=== PATIENT | female | born 1960 | race Caucasian/White ===

== ENCOUNTER → 2018-08-12 15:22 | Outpatient (CLI) | payer OTHER, SELFPAY ==
--- NOTE | 2018-08-12 | IMM_PTH ---
PATIENT: LELAND SIMMONS LOC: [facility] U#:[id number] AGE/SX: 65/F ROOM: RE08/12/[address]: Dr. Farida Henriquez MD : 1960 BED: DIS: SPEC #: [id number] RECD: 08/16/18 13:39 STATUS: NABIL REQ #: [id number] FERMIN: 08/12/18 00:[address]: Farida Henriquez DEPT: IMMUNOHISTOCHEMISTRY RECD BY: Tahira Jenkins Tissues: Lymph node of neck, NOS Procedures: BCL-2 (add) BCL-6 (add) CD10 (add) CD138 (add) CD45 (add) CD5 (add) CD79A (add) KAPPA (add) LAMBDA (add) Pankeratin (add) CD3 (initial) PHYSICIAN & INSTITUTION [place] [id number] SPECIMEN INFORMATION: Tissue Source: Left neck lymph node, fine needle aspiration Clinical Info: Left thyroid nodule Specimen Number: [id number] CPT code: 17488, 54526 x10 METHODOLOGY: Deparaffinized sections of prefer/formalin-fixed tissue or PAP/DQ stained slides are incubated with monoclonal/polyclonal antibodies/oligonucleotide probes. Localization is made via biotin free immunoperoxidase method. Appropriate controls are performed and reacted as expected. Results on target cell population are indicated in the following table: RESULTS: ANTIBODY / CLONE RESULT CD3 (PS1) positive CD5 (SP10) positive CD20 (L26) negative CD45 (RP2/18) positive CD79a (11E3) positive CD138 (B-A38) positive, focal BCL-2 (bcl-2/100/D5) positive BCL-6 (YN482C/A8) negative [place] (polyclonal) negative Lambda (polyclonal) negative AE1-3 (AE1/AE3/PCK26) negative These tests were developed and their performance characteristics determined by [facility]. They may not have been cleared or approved by the [place]. Food and Drug Administration. The FDA has determined that such clearance or approval is not necessary. INTERPRETATION: Left neck lymph node, fine needle aspiration: Polytypic lymphoid tissue. AM:samira 08/17/18 Comment: There is no evidence of malignancy.
--- NOTE | 2018-08-12 13:00 | LYMN_PTH ---
PATIENT: LELAND SIMMONS LOC: [facility] U#:[id number] AGE/SX: 65/F ROOM: RE08/12/[address]: Dr. Farida Henriquez MD : 1960 BED: DIS: SPEC #: [id number] RECD: 08/12/18 15:21 STATUS: NABIL RUTH ANN #: [id number] FERMIN: 08/12/18 13:[address]: aFrida Henriquez DEPT: SURGICAL PATHOLOGY RECD BY: Jese Kumar Tissues: LYMPH NODE BIOPSY Procedures: Surgery Specimen Level IV HEADER OPERATION: Ultrasound guided fine needle aspiration of left thyroid and lymph node biopsy PRE-OP DIAGNOSIS: Left thyroid nodule TISSUE SUBMITTED: Lymph node biopsy, left neck MICROSCOPIC DIAGNOSIS Left neck lymph node, ultrasound-guided core biopsy: Polytypic lymphoid tissue. AM:samira 08/16/18 COMMENT Immunohistochemistry ([id number]) supports the above diagnosis. Case has been reviewed in consultation with Dr. Recinos who concurs with the above diagnosis. IDC:SJ MICROSCOPIC DESCRIPTION Slides are reviewed. GROSS DESCRIPTION Received in fixative is one container labeled with the patient's name and designated lymph node biopsy. The specimen consists of an elongated piece of contreras soft tissue measuring 0.3 x 0.1 x <0.1 cm. The specimen is totally submitted in one cassette. / TSEFANY:samira 08/15/18 TC:5 CPT: 56444
--- NOTE | 2018-08-12 13:00 | ASPSI_PTH ---
PATIENT: LELAND SIMMONS LOC: [facility] U#:[id number] AGE/SX: 65/F ROOM: RE08/12/[address]: Dr. Farida Henriquez MD : 1960 BED: DIS: SPEC #: [id number] RECD: 08/12/18 15:21 STATUS: NABIL KINGMarcie #: [id number] FERMIN: 08/12/18 13:[address]: Farida Henriqeuz DEPT: CYTOLOGY RECD BY: Jese Kumar Tissues: A - Thyroid gland, NOS B - Thyroid gland, NOS Procedures: Pap Stain (control) Special Stain Group II Surgery Specimen Level IV Cell Block Cytospin Fluid Cytology Other HEADER OPERATION: Ultrasound guided fine needle aspiration of left thyroid and lymph node biopsy PRE-OP DIAGNOSIS: Left thyroid nodule TISSUE SUBMITTED: A. FNA left thyroid fluid for cytology, B. FNA left thyroid slides DIAGNOSIS CYTOLOGY A. Fine needle aspiration, left thyroid nodule (cytospin and cell block): Negative for malignant cells. See comment. B. Fine needle aspiration, left thyroid nodule (smears): Colloid and rare follicular cells. See comment. AM:samira 08/16/18 COMMENT Immediate cytologic evaluation to determine adequacy is not applicable. A. The specimen primarily contains blood. Clinical correlation is suggested. B. The specimen is suboptimal for evaluation due to paucity of follicular cells. Clinical correlation is suggested. CYTOLOGY STUDY Slides are reviewed. CYTOLOGY GROSS A. Received is 30 ml of beige cloudy fluid labeled with the patient's name and and designated per the requisition as left thyroid. Submitted for cytology preparation including cell block. B. Received are 6 smears labeled with the patient's name and designated per the requisition as left thyroid. Submitted for staining. / CC:cc 08/15/18 TC:5 CPT: 26298, 04686, 36338
--- OUTSIDE RECORDS SUMMARY | 2018-11-16 06:29 | XMS RPT_ITS ---
:1960 Author Organization OH[facility] Care Team Providers Name Role Phone ZACHARY HALL Referring Unavailable ISABEL, ZACHARY Geronimo Attending Unavailable ISABEL, ZACHARY Geronimo Referring Unavailable HALL, ZACHARY Geronimo Referring Unavailable HALL, ZACHARY Geronimo Attending Unavailable ISABEL, ZACHARY Geronimo Referring Unavailable HALL, ZACHARY Geronimo Referring Unavailable HENRIQUEZ, FARIDA MONTILLA Attending Unavailable HALL, ZACHARY Geronimo Referring Unavailable HENRIQUEZ, FARIDA MONTILLA Attending Unavailable HENRIQUEZ, FARIDA MONTILLA Referring Unavailable HENRIQUEZ, FARIDA MONTILLA Referring Unavailable Henriquez, Farida Attending Unavailable Martinez, Farida Referring Unavailable PROBLEMS PROBLEMS DATE TYPE CONDITION / CODE ATTENDING STATUS SOURCE 01/19/2014 Active Nontoxic NA Active [facility] multinodular goiter 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 [place] Z79.4(ICD-10) Repository 11/03/2017 Active Unknown / NA Active [facility] UNK(Unknown) [facility] Repository PROCEDURES PROCEDURES No Procedure Records FoundRESULTS RESULTS PROCEDURE Observed: 08/13/2018 Status: COMPLETED Source: [place] 2:37 PM [facility] REPOSITORY HNO ID: [id number] Author: Farida Henriquez Service: (none) Author Type: Physician Type: Procedures Filed: 08/13/2018 2:41 PM Note Text: After informed consent was given and patient gives permission for the procedure, the patient was placed in the supine position with slight neck extension. Appropriate time out protocol was followed. The ultrasound transducer was used to localize the lesion which was in the left lobe of the thyroid. The skin and subcutaneous tissues were then infiltrated with 1% xylocaine with epinephrine after the skin was cleansed with betadyne. A 22G needle attached to a 10 cc syringe was the inserted into the nodule using the US transducer as guidance. The syringe was aspirated, several passes were made to obtain adequate tissue. The needle was then withdrawn and smear slides were made and the remainder of the tissue was placed in formalin. Hemostasis was achieved by pressure. A bandaid was applied to the site. The next lesion approached was the abnormal left neck side lymph node. The ultrasound transducer probe was brought up to localize the lymph node. It was identified. A 20 G Bard needle core biopsy device was inserted into the patient's neck as directed by the US transducer. At the appropriate position, it was fired. The needle core device was withdrawn and the tissue was placed on a telfa pad. This was done multiple times to obtain adequate tissue. The telfa pad was then placed in a formalin container. Hemostasis was achieved with pressure. A small bandaid was applied and patient told that she could remove it tomorrow. No evidence of bleeding noted. Patient tolerated procedure well. PROGRESS Observed: 08/13/2018 Status: COMPLETED Source: [place] 2:36 PM [facility] REPOSITORY HNO ID: [id number] Author: Farida Henriquez Service: (none) Author Type: Physician Type: Progress Notes Filed: 08/13/2018 2:41 PM Note Text: Stefanie presents for needle core biopsy of left sided neck lymph node and also left thyroid nodule. She tolerated procedure well. This office will contact patient with results. PROGRESS Observed: 08/12/2018 Status: COMPLETED Source: [place] 1:33 PM [facility] REPOSITORY HNO ID: [id number] Author: Alayna Nuno RN Service: (none) Author Type: (none) Type: Progress Notes Filed: 08/13/2018 2:41 PM Note Text: UNIVERSAL PROTOCOL / SAFETY CHECKLIST Procedure to be performed: ultrasound guided left thyroid fine needle aspiration and left neck lymph node biopsy Sign in Communication: Completed Time Out: Team Confirms the Correct Patient, Correct Procedure, Correct Site and Site Marking, Correct Position (if applicable), Prep and Dry Time (if applicable). Time: 1315 Affirmation of Time Out: YES Sign Out Discussion: Completed Alayna Nuno RN PROGRESS Observed: 08/12/2018 Status: COMPLETED Source: [place] 1:30 PM [facility] REPOSITORY HNO ID: [id number] Author: Mikaela Barbosa Service: (none) Author Type: Area Sales Manager Type: Progress Notes Filed: 08/12/2018 1:31 PM Note Text: Radiology Service Progress Note PATIENT NAME: Stefanie Wayne DATE OF SERVICE: August 12, 2018 TIME: 1:30 PM PATIENT IDENTITY VERIFICATION COMPLETED USING TWO (2) METHODS: Patient confirmed name verbally and Date of . PATIENT GENDER DATA: Female. status: : No status: N/A PATIENT RELEVANT IMPLANT DATA REVIEWED: Not Applicable RADIOLOGY DEPARTMENT: Ultrasound PERIPHERAL IV DATA: Not applicable SIGNED BY: MIKAELA BARBOSA RDMS RVRoslyn August 12, 2018 1:30 PM CNOV Observed: 08/12/2018 Status: COMPLETED Source: [place] 1:00 PM [facility] REPOSITORY Office Visit (FLORIN) STEFANIE WAYNE ([id number]) 1960 F Date Time Provider Department 08/12/18 1:00 PM FARIDA HENRIQUEZ During your visit today, we recorded the following information about you: Alayna Nuno RN 08/12/2018 12:59 PM Signed The following instructions are important for you related to your office visit today with the [facility]. Instructions After THYROID FINE NEEDLE ASPIRATION Please do not take aspirin or other blood thinners for the next few days. If you have bleeding from the needle site, hold pressure with a clean gauze. If the bleeding continues, contact our office immediately. I recommend taking Advil or Tylenol for the discomfort. An ice pack may improve your discomfort to the area. Contact our office immediately if you have any questions or concerns @ [phone]. Please make an appointment to follow up in one week with your physician and thank you for choosing the [facility]. If you note any additional difficulties, questions, or concerns, you should contact our office immediately @ [phone] and ask to be transferred to the General Surgery department. Alayna Nuno RN 08/13/2018 2:41 PM Signed UNIVERSAL PROTOCOL / SAFETY CHECKLIST Procedure to be performed: ultrasound guided left thyroid fine needle aspiration and left neck lymph node biopsy Sign in Communication: Completed Time Out: Team Confirms the Correct Patient, Correct Procedure, Correct Site and Site Marking, Correct Position (if applicable), Prep and Dry Time (if applicable). Time: 1315 Affirmation of Time Out: YES Sign Out Discussion: Completed Alayna Henriquez MD 08/13/2018 2:41 PM Signed Stefanie presents for needle core biopsy of left sided neck lymph node and also left thyroid nodule. She tolerated procedure well. This office will contact patient with results. Farida Henriquez MD 08/13/2018 2:41 PM Signed After informed consent was given and patient gives permission for the procedure, the patient was placed in the supine position with slight neck extension. Appropriate time out protocol was followed. The ultrasound transducer was used to localize the lesion which was in the left lobe of the thyroid. The skin and subcutaneous tissues were then infiltrated with 1% xylocaine with epinephrine after the skin was cleansed with betadyne. A 22G needle attached to a 10 cc syringe was the inserted into the nodule using the US transducer as guidance. The syringe was aspirated, several passes were made to obtain adequate tissue. The needle was then withdrawn and smear slides were made and the remainder of the tissue was placed in formalin. Hemostasis was achieved by pressure. A bandaid was applied to the site. The next lesion approached was the abnormal left neck side lymph node. The ultrasound transducer probe was brought up to localize the lymph node. It was identified. A 20 G Bard needle core biopsy device was inserted into the patient's neck as directed by the US transducer. At the appropriate position, it was fired. The needle core device was withdrawn and the tissue was placed on a telfa pad. This was done multiple times to obtain adequate tissue. The telfa pad was then placed in a formalin container. Hemostasis was achieved with pressure. A small bandaid was applied and patient told that she could remove it tomorrow. No evidence of bleeding noted. Patient tolerated procedure well. Referring Provider: FARIDA HENRIQUEZ [[id number]] Allergies As of Date: 08/12/2018 Noted Allergy Reaction SULFA (SULFONAMIDE ANTIBIOTICS) 07/02/2006 7 - Swelling 9 - Itching SEASONAL ALLERGIES 01/25/2018 5 - Intolerance ZOCOR (SIMVASTATIN) 12/02/2005 7 - Swelling Date Reviewed: 08/12/2018 Reviewed by: Aalyna Nuno RN - Fully Assessed Reason for Visit: Procedure [88] Primary Visit Diagnosis:Left thyroid nodule [E04.1] Other Visit Diagnosis:Lymph node enlargement [R59.9] Prescriptions as of 08/12/2018 Sig: ATORVASTATIN 20 MG TABLET Take 1 tablet by mouth once d* BASAGLAR KWIKPEN U-100 INSULI* INJECT 30 UNITS SUBCUTANEOUSL* BLOOD-GLUCOSE METER DULAGLUTIDE 1.5 MG/0.5 ML SUB* Inject 1.5 mg subcutaneously * EMPAGLIFLOZIN 10 MG TABLET Take 1 tablet by mouth once d* PEN NEEDLE, DIABETIC 32 GAUGE* Use once daily with Lantus LANCETS Test Blood Sugar 2 times per * LISINOPRIL 20 MG-HYDROCHLOROT* Take 1 tablet by mouth once d* METFORMIN ER 500 MG TABLET,EX* Take 2 tablets by mouth twice* OMEPRAZOLE 40 MG CAPSULE,DEEJAY* TAKE 1 CAPSULE BY MOUTH ONCE * TRAZODONE 100 MG TABLET Take 1 tablet by mouth daily * Problem List As Of Date 08/12/2018 Noted Resolved Essential hypertension [I10] INVALID FOR* Other hyperlipidemia [E78.49] INVALID FOR* Type 2 diabetes mellitus without complication (*INVALID FOR* More... Genital warts [A63.0] INVALID FOR*03/27/2012 Dermatofibroma of lower extremity [D23.70] INVALID FOR*03/27/2012 Reticular Varicose Vein: R leg prox outer mid a*INVALID FOR*03/27/2012 Telangiectasia associated with the Reticular Ve*INVALID FOR*03/27/2012 Epidermal Cyst: L mid lower cheek jawline area *INVALID FOR*03/27/2012 Pilar Cyst: R side scalp [L72.11] INVALID FOR*03/27/2012 GERD (gastroesophageal reflux disease) [K21.9] INVALID FOR* Esophagitis, unspecified [K20.9] INVALID FOR* Symptomatic menopausal or female climacteric st*INVALID FOR* Multinodular thyroid [E04.2] INVALID FOR* Depressive disorder [F32.9] INVALID FOR* Other instructions from your clinician: The following instructions are important for you related to your office visit today with the [facility]. Instructions After THYROID FINE NEEDLE ASPIRATION Please do not take aspirin or other blood thinners for the next few days. If you have bleeding from the needle site, hold pressure with a clean gauze. If the bleeding continues, contact our office immediately. I recommend taking Advil or Tylenol for the discomfort. An ice pack may improve your discomfort to the area. Contact our office immediately if you have any questions or concerns @ [phone]. Please make an appointment to follow up in one week with your physician and thank you for choosing the [facility]. If you note any additional difficulties, questions, or concerns, you should contact our office immediately @ [phone] and ask to be transferred to the General Surgery department. Encounter Status:Closed by MD FARIDA HENRIQUEZ on 08/13/18 ASP SEND IN Observed: 08/12/2018 Status: F Source: [place] 1:00 PM REPOSITORY Patient: STEFANIE WAYNE : 1960 (58/F) Acct Num: [id number] Phys: Farida Henriquez MD Unit Num: [id number] Loc: LABSPEC Specimen: [id number] Received: 08/12/18 - 1521 Spec Type: ASP SENDIN TISSUES 1 TISSUES: A. Thyroid gland, NOS - FLUID, LEFT B. Thyroid gland, NOS - SLIDES, LEFT COMMENT Immediate cytologic evaluation to determine adequacy is not applicable. A. The specimen primarily contains blood. Clinical correlation is suggested. B. The specimen is suboptimal for evaluation due to paucity of follicular cells. Clinical correlation is suggested. CYTOLOGY GROSS A. Received is 30 ml of beige cloudy fluid labeled with the patient's name and and designated per the requisition as left thyroid. Submitted for cytology preparation including cell block. B. Received are 6 smears labeled with the patient's name and designated per the requisition as left thyroid. Submitted for staining. / CC:cc 08/15/18 TC:5 CPT: 06879, 30282, 51080 CYTOLOGY STUDY Slides are reviewed. DIAGNOSIS CYTOLOGY A. Fine needle aspiration, left thyroid nodule (cytospin and cell block): Negative for malignant cells. See comment. B. Fine needle aspiration, left thyroid nodule (smears): Colloid and rare follicular cells. See comment. AM:samira 08/16/18 HEADER OPERATION: Ultrasound guided fine needle aspiration of left thyroid and lymph node biopsy PRE-OP DIAGNOSIS: Left thyroid nodule TISSUE SUBMITTED: A. FNA left thyroid fluid for cytology, B. FNA left thyroid slides Signed Mark Rivera DO 08/16/18 <signature on file> Performed By: #### STU #### [facility], [address] LYMPH NODE BIOPSY Observed: 08/12/2018 Status: F Source: [place] 1:00 PM REPOSITORY Patient: STEFANIE WAYNE : 1960 (58/F) Acct Num: [id number] Phys: Martinez MARTÍNEZ,Farida Unit Num: [id number] Loc: LABSPEC Specimen: [id number] Received: 08/12/181520 Spec Type: LYMPH NODE TISSUES 1 TISSUES: LYMPH NODE BIOPSY COMMENT Immunohistochemistry ([id number]) supports the above diagnosis. Case has been reviewed in consultation with Dr. Recinos who concurs with the above diagnosis. IDC:STEFANY GROSS DESCRIPTION Received in fixative is one container labeled with the patient's name and designated lymph node biopsy. The specimen consists of an elongated piece of contreras soft tissue measuring 0.3 x 0.1 x <0.1 cm. The specimen is totally submitted in one cassette. / SJ:samira 08/15/18 TC:5 CPT: 87363 HEADER OPERATION: Ultrasound guided fine needle aspiration of left thyroid and lymph node biopsy PRE-OP DIAGNOSIS: Left thyroid nodule TISSUE SUBMITTED: Lymph node biopsy, left neck MICROSCOPIC DESCRIPTION Slides are reviewed. MICROSCOPIC DIAGNOSIS Left neck lymph node, ultrasound-guided core biopsy: Polytypic lymphoid tissue. AM:samira 08/16/18 Signed Mark Rivera DO 08/17/18 <signature on file> Performed By: #### PLYMN #### [facility] [address] [place], [place] [address]wil[place]ido. [place], [place], [address] IMMUNOHISTOCHEMISTRY Observed: 08/12/2018 Status: F Source: [place] 12:00 AM REPOSITORY Patient: STEFANIE WAYNE : 1960 (58/F) Acct Num: [id number] Phys: Farida Henriquez MD Unit Num: [id number] Loc: LABSPEC Specimen: [id number] Received: 08/16/181338 Spec Type: IMMUNO TISSUES 1 TISSUES: Lymph node of neck, NOS SPECIMEN INFORMATION: Tissue Source: Left neck lymph node, fine needle aspiration Clinical Info: Left thyroid nodule Specimen Number: [id number] CPT code: 00994, 68811 x10 METHODOLOGY: Deparaffinized sections of prefer/formalin-fixed tissue or PAP/DQ stained slides are incubated with monoclonal/polyclonal antibodies/oligonucleotide probes. Localization is made via biotin free immunoperoxidase method. Appropriate controls are performed and reacted as expected. Results on target cell population are indicated in the following table: RESULTS: ANTIBODY / CLONE RESULT CD3 (PS1) positive CD5 (SP10) positive CD20 (L26) negative CD45 (RP2/18) positive CD79a (11E3) positive CD138 (B-A38) positive, focal BCL-2 (bcl-2/100/D5) positive BCL-6 (LZ564F/A8) negative [place] (polyclonal) negative Lambda (polyclonal) negative AE1-3 (AE1/AE3/PCK26) negative These tests were developed and their performance characteristics determined by [facility]. They may not have been cleared or approved by the U.S. Food and Drug Administration. The FDA has determined that such clearance or approval is not necessary. INTERPRETATION: Left neck lymph node, fine needle aspiration: Polytypic lymphoid tissue. AM:samira 08/17/18 Comment: There is no evidence of malignancy. PHYSICIAN AND INSTITUTION [address] [address] Signed Mark Rivera, 08/18/18 <signature on file> Performed By: #### PIMM #### [facility] [place], [address] CNPN Observed: 08/09/2018 Status: COMPLETED Source: [place] 12:00 AM [facility] REPOSITORY Telephone (INTMWS) STEFANIE WAYNE ([id number]) 1960 F Date Time Provider Department 08/09/18 ZACHARY HALL INTXIN During your visit today, we recorded the following information about you: [facility] 08/09/2018 8:35 AM Signed ----- Message from Zachary Hall sent at 08/07/2018 12:00 AM EST ----- DM worse. Continue medications. Add Jardiance 10 mg daily #30, 2 refills. [facility] 08/09/2018 8:41 AM Signed Patient is notified of all information and verbalizes understanding. [facility] Allergies As of Date: 08/09/2018 Noted Allergy Reaction SULFA (SULFONAMIDE ANTIBIOTICS) 07/02/2006 7 - Swelling 9 - Itching SEASONAL ALLERGIES 01/25/2018 5 - Intolerance ZOCOR (SIMVASTATIN) 12/02/2005 7 - Swelling Date Reviewed: 08/05/2018 Reviewed by: Farida Henriquez - Fully Assessed Reason for Visit: Results [95] Order(s):empagliflozin (JARDIANCE) 10 mg tabletTake 1 tablet by mouth once daily. Take 1 tablet once daily in the morningDisp: 30 tabletRfl: 2 Prescriptions as of 08/09/2018 Sig: EMPAGLIFLOZIN 10 MG TABLET Take 1 tablet by mouth once d* OMEPRAZOLE 40 MG CAPSULE,DEEJAY* TAKE 1 CAPSULE BY MOUTH ONCE * ATORVASTATIN 20 MG TABLET Take 1 tablet by mouth once d* METFORMIN ER 500 MG TABLET,EX* Take 2 tablets by mouth twice* LISINOPRIL 20 MG-HYDROCHLOROT* Take 1 tablet by mouth once d* TRAZODONE 100 MG TABLET Take 1 tablet by mouth daily * BASAGLAR KWIKPEN U-100 INSULI* INJECT 30 UNITS SUBCUTANEOUSL* DULAGLUTIDE 1.5 MG/0.5 ML SUB* Inject 1.5 mg subcutaneously * PEN NEEDLE, DIABETIC 32 GAUGE* Use once daily with Lantus BLOOD-GLUCOSE METER LANCETS Test Blood Sugar 2 times per * Problem List As Of Date 08/09/2018 Noted Resolved Essential hypertension [I10] INVALID FOR* Other hyperlipidemia [E78.49] INVALID FOR* Type 2 diabetes mellitus without complication (*INVALID FOR* More... Genital warts [A63.0] INVALID FOR*03/27/2012 Dermatofibroma of lower extremity [D23.70] INVALID FOR*03/27/2012 Reticular Varicose Vein: R leg prox outer mid a*INVALID FOR*03/27/2012 Telangiectasia associated with the Reticular Ve*INVALID FOR*03/27/2012 Epidermal Cyst: L mid lower cheek jawline area *INVALID FOR*03/27/2012 Pilar Cyst: R side scalp [L72.11] INVALID FOR*03/27/2012 GERD (gastroesophageal reflux disease) [K21.9] INVALID FOR* Esophagitis, unspecified [K20.9] INVALID FOR* Symptomatic menopausal or female climacteric st*INVALID FOR* Multinodular thyroid [E04.2] INVALID FOR* Depressive disorder [F32.9] INVALID FOR* Prescriptions ordered this encounter Disp Refills Start End EMPAGLIFLOZIN 10 MG TABLET 30 t* 2 08/09/2018 Route: ORAL Sig: Take 1 tablet by mouth once daily. Take 1 tablet once daily in the morning Encounter Status:Closed by PRIYANKA CHU CNP on 08/09/18 PROGRESS Observed: 08/04/2018 Status: COMPLETED Source: [place] 4:36 PM [facility] REPOSITORY HNO ID: [id number] Author: Farida Henriquez Service: (none) Author Type: Physician Type: Progress Notes Filed: 08/06/2018 2:44 PM Note Text: Stefanie Wayne 1960 REFERRING PHYSICIAN: Zachary Hall MD CHIEF COMPLAINT: left thyroid nodule HPI: The patient is a 58 year old female presents with abnormal thyroid US. She has noted that she seems to require clearing her throat more often, and seems slightly hoarse. Also notes swallowing problems, food seems to be stuck in her upper throat at times, and she has to swallow multiple times to get the food down. She also complains of globus sensation for about a year. Denies radiation to the area. Denies history of thyroiditis. Has noted some weight gain. US 07/29/18 Right lobe 4.3 x 1.9 x 1.3 cm . Left lobe 3.9 x 1.4 x 1.9 cm . Isthmus 0.2 cm. Thyroid texture: Very heterogeneous Nodules: (Several ill-defined nodules. The largest ones measure) Right lobe: 6 x 5 x 4 mm in the lower pole and 4 mm in the lower pole at the junction with the isthmus . Both of these are hypoechoic. Previously measured 6 x 5 x 3 mm and 4 mm respectively. Left lobe: 1.0 x 0.9 x 0.6 cm in the lower pole . It contains calcification. Previously measured 8 x 6 x 7 mm Isthmus: None . There is a lymph node noted lateral to the thyroid on the LEFT side measuring 2.2 x 0.8 x 0.5 cm. No thyroid cancer known in family. PAST MEDICAL HISTORY Diagnosis Date - Acute gastritis 02/2004 - Anxiety state, unspecified - Multinodular thyroid 01/19/2014 - Other affections of shoulder region, not elsewhere classified 12/03/2005 - Other and unspecified hyperlipidemia 11/26/2005 - Pain in joint, shoulder region 08/26/2007 - RBBB 01/05/2003 - Right hip pain 2012 ARTHROSCOPY HIP W/ DEBRIDEMENT/SHAVING ARTICULAR CARTILAGE, ABRASION ARTHROPLASTY, AND/OR RESECTION LABRUM Right - Type II or unspecified type diabetes mellitus without mention of complication, not stated as uncontrolled 11/26/2005 - Unspecified essential hypertension 11/26/2005 PAST SURGICAL HISTORY Procedure Laterality Date - ARTHROSCOPY HIP W/LABRAL REPAIR Right hip - COLONOSCOP W/ OR W/O BRSH SPEC 05/04/2013 Colonoscopy - CORRECT BUNION,SIMPLE 1974 Bunion - EGD W/O OR W/BRUSH/WASH 03/04/2004 EGD - EGD W/O OR W/BRUSH/WASH 04/07/2012 EGD - EXCISE EXCESS SKIN TISSUE,ABDOMEN, ADD-ON December 15, 2009 Abdominoplasty - KNEE SCOPE,DIAGNOSTIC 1977 Arthroscopy, knee - PAST SURGICAL HISTORY OF 1985 CYST REMOVAL LEFT HAND - PAST SURGICAL HISTORY OF 2000 NERVE REPAIR, left hand following crush injury - PERCUTANEOUS LUMBAR DISKECTOMY 1994 - REDUCTION OF LARGE BREAST 1999 Breast reduction - REPAIR ROTATOR CUFF,ACUTE Rotator cuff repair, Left shoulder. - REVISE MEDIAN N/CARPAL TUNNEL SURG 1993 Carpal tunnel decomp - REVISE MEDIAN N/CARPAL TUNNEL SURG 2000 Carpal tunnel decomp - SHOULDER RIGHT OUT PT SURGERY Right 12/30/2016 rotator cuff surgery - SLING OPER STRES INCONTINENCE 04/2014 - TOTAL ABDOM HYSTERECTOMY 1991 Hysterectomy, SUMMER- one ovary remains Current Outpatient Prescriptions: diazePAM (VALIUM) 5 mg tablet Take 1 tablet by mouth every 6 hours as needed for Sedation (take 1-2 tablets about 1 hour prior to procedure) for up to 1 day. atorvastatin (LIPITOR) 20 mg tablet Take 1 tablet by mouth once daily. metFORMIN ER (GLUCOPHAGE XR) 500 mg 24 hr tablet Take 2 tablets by mouth twice daily with meals. lisinopril-hydrochlorothiazide (PRINZIDE,ZESTORETIC) 20-12.5 mg per tablet Take 1 tablet by mouth once daily. traZODone (DESYREL) 100 mg tablet Take 1 tablet by mouth daily at bedtime. BASAGLAR KWIKPEN U-100 INSULIN 100 unit/mL (3 mL) inpn INJECT 30 UNITS SUBCUTANEOUSLY EVERY MORNING. dulaglutide (TRULICITY) 1.5 mg/0.5 mL pnij Inject 1.5 mg subcutaneously once each week. Insulin [place], Disposable, (BD ULTRA-FINE MICRO PEN NEEDLE) 32 gauge x 1/4 ndle Use once daily with Lantus Omeprazole 40 mg capsule TAKE 1 CAPSULE BY MOUTH ONCE DAILY. Blood-Glucose Meter (ACCU-CHEK SANDIE) misc Lancets (SOFTCLIX LANCETS) lancets Test Blood Sugar 2 times per day. Dx: 250.00 ALLERGIES: Sulfa (Sulfonamide Antibiotics); Seasonal Allergies; Zocor [Simvastatin] PERSONAL HISTORY: Social History Marital status: Spouse name: Years of education: 10 Number of children: 2 Occupational History Occupation Employer Comment [employer] Social History Main Topics Smoking status: Former Smoker Packs/day: 0.75 Years: 30.00 Types: Cigarettes Quit date: 11/30/2008 Smokeless tobacco: Never Used Alcohol use: Yes 4.5 oz/week Cans of Beer (12oz): 3 per week Comment: Occasionally Drug use: No Sexual activity: Yes Partners with: Male Comment: hysterectomy FAMILY HISTORY Problem Relation Age of Onset - Diabetes Mother - Hypertension Mother - Stroke Mother - Arthritis Mother Lupus - Thyroid Mother - other (TUBERCULOSIS) Father not well known - Diabetes Brother - Hypertension Brother REVIEW OF SYSTEMS: General - denies fevers, denies extreme fatigue does feel tired Cardiovascular - denies chest pain Pulmonary - denies shortness of breath, denies coughing up blood Gastrointestinal - denies abdominal pain, denies hematemesis Neurological - denies seizures Genitourinary - denies burning with urination, denies blood in urine Hematological - denies spontaneous/prolonged bleeding Skin - denies nonhealing skin wounds Musculoskeletal - denies chronic joint/back pain Endocrine - has diabetes Psychological ? denies hallucinations PHYSICAL EXAMINATION: General: The patient is 58 year old female, well nourished, well hydrated in no acute distress. The patient is oriented to time, place, and person. VITALS: Blood pressure 170/90, pulse 80, weight 76.2 kg (168 lb). Body mass index is 29.76 kg/m?. Head ? Normocephalic. EOM intact with sclera clear and no icterus noted. Mouth with mucus membranes moist. Neck - supple with no jugular venous distention noted. Trachea is midline. No carotid bruits noted. No thyroid enlargement or thyroid nodules detected. No masses noted. Lungs ? clear to auscultation. Normal breath sounds. No rales/rhonchi/wheezing noted. No labored breathing noted, such as retractions. No cough heard. Heart ? normal S1 and S2 auscultated. No rubs/clicks/murmurs noted. Regular rate. Abdomen ? soft and benign. Normal bowel sounds. Extremities ? no calf tenderness noted. No pitting edema noted. Skin ? normal skin integrity. Lymph ? no cervical adenopathy detected, no supraclavicular adenopathy detected, no axillary adenopathy detected Neurological ? gait normal, no focal deficits noted Psych ? calm and appropriate RADIOLOGIC STUDIES: As Noted Assessment IMPRESSION: multinodular thyroid, abnormal left side neck lymph node PLAN: I have discussed the above with the patient. I have offered US guided needle biopsy of left thyroid nodule and the left sided lymph node. I have explained the procedure to the patient. I have counseled the patient as to the risks of the procedure, including but not limited to: infection, bleeding, injury to any blood vessels/nerves, scar tissue, wound infections, complications of anesthesia, etc. ? the patient understands. The patient wishes to proceed. She would also like valium prior to procedure. I have answered all questions to the patient?s satisfaction and the patient has no further questions. . Diagnoses: (E04.1) Left thyroid nodule (primary encounter diagnosis) (R59.9) Lymph node enlargement (F41.9) Anxiety Return to Clinic: The patient is instructed to follow-up with me after the procedure for discussion of the results. Farida Henriquez MD CNOV Observed: 08/04/2018 Status: COMPLETED Source: [place] 2:50 PM [facility] REPOSITORY Office Visit (GENSWS) STEFANIE WAYNE ([id number]) 1960 F Date Time Provider Department 08/04/18 2:50 PM FARIDA HENRIQUEZ During your visit today, we recorded the following information about you: Pulse Blood pressure Weight 80/minute 170/90 76.2 kg Farida Henriquez MD 08/06/2018 2:44 PM Signed Stefanie Wayne 1960 REFERRING PHYSICIAN: Zachary Hall MD CHIEF COMPLAINT: left thyroid nodule HPI: The patient is a 58 year old female presents with abnormal thyroid US. She has noted that she seems to require clearing her throat more often, and seems slightly hoarse. Also notes swallowing problems, food seems to be stuck in her upper throat at times, and she has to swallow multiple times to get the food down. She also complains of globus sensation for about a year. Denies radiation to the area. Denies history of thyroiditis. Has noted some weight gain. US 07/29/18 Right lobe 4.3 x 1.9 x 1.3 cm . Left lobe 3.9 x 1.4 x 1.9 cm . Isthmus 0.2 cm. Thyroid texture: Very heterogeneous Nodules: (Several ill-defined nodules. The largest ones measure) Right lobe: 6 x 5 x 4 mm in the lower pole and 4 mm in the lower pole at the junction with the isthmus . Both of these are hypoechoic. Previously measured 6 x 5 x 3 mm and 4 mm respectively. Left lobe: 1.0 x 0.9 x 0.6 cm in the lower pole . It contains calcification. Previously measured 8 x 6 x 7 mm Isthmus: None . There is a lymph node noted lateral to the thyroid on the LEFT side measuring 2.2 x 0.8 x 0.5 cm. No thyroid cancer known in family. PAST MEDICAL HISTORY Diagnosis Date - Acute gastritis 02/2004 - Anxiety state, unspecified - Multinodular thyroid 01/19/2014 - Other affections of shoulder region, not elsewhere classified 12/03/2005 - Other and unspecified hyperlipidemia 11/26/2005 - Pain in joint, shoulder region 08/26/2007 - RBBB 01/05/2003 - Right hip pain 2012 ARTHROSCOPY HIP W/ DEBRIDEMENT/SHAVING ARTICULAR CARTILAGE, ABRASION ARTHROPLASTY, AND/OR RESECTION LABRUM Right - Type II or unspecified type diabetes mellitus without mention of complication, not stated as uncontrolled 11/26/2005 - Unspecified essential hypertension 11/26/2005 PAST SURGICAL HISTORY Procedure Laterality Date - ARTHROSCOPY HIP W/LABRAL REPAIR Right hip - COLONOSCOP W/ OR W/O [facility] SPEC 05/04/2013 Colonoscopy - CORRECT BUNION,SIMPLE 1974 Bunion - EGD W/O OR W/BRUSH/WASH 03/04/2004 EGD - EGD W/O OR W/BRUSH/WASH 04/07/2012 EGD - EXCISE EXCESS SKIN TISSUE,ABDOMEN, ADD-ON December 15, 2009 Abdominoplasty - KNEE SCOPE,DIAGNOSTIC 1977 Arthroscopy, knee - PAST SURGICAL HISTORY OF 1985 CYST REMOVAL LEFT HAND - PAST SURGICAL HISTORY OF 2000 NERVE REPAIR, left hand following crush injury - PERCUTANEOUS LUMBAR DISKECTOMY 1994 - REDUCTION OF LARGE BREAST 1999 Breast reduction - REPAIR ROTATOR CUFF,ACUTE Rotator cuff repair, Left shoulder. - REVISE MEDIAN N/CARPAL TUNNEL SURG 1993 Carpal tunnel decomp - REVISE MEDIAN N/CARPAL TUNNEL SURG 2000 Carpal tunnel decomp - SHOULDER RIGHT OUT PT SURGERY Right 12/30/2016 rotator cuff surgery - SLING OPER STRES INCONTINENCE 04/2014 - TOTAL ABDOM HYSTERECTOMY 1991 Hysterectomy, SUMMER- one ovary remains Current Outpatient Prescriptions: diazePAM (VALIUM) 5 mg tablet Take 1 tablet by mouth every 6 hours as needed for Sedation (take 1-2 tablets about 1 hour prior to procedure) for up to 1 day. atorvastatin (LIPITOR) 20 mg tablet Take 1 tablet by mouth once daily. metFORMIN ER (GLUCOPHAGE XR) 500 mg 24 hr tablet Take 2 tablets by mouth twice daily with meals. lisinopril-hydrochlorothiazide (PRINZIDE,ZESTORETIC) 20-12.5 mg per tablet Take 1 tablet by mouth once daily. traZODone (DESYREL) 100 mg tablet Take 1 tablet by mouth daily at bedtime. BASAGLAR KWIKPEN U-100 INSULIN 100 unit/mL (3 mL) inpn INJECT 30 UNITS SUBCUTANEOUSLY EVERY MORNING. dulaglutide (TRULICITY) 1.5 mg/0.5 mL pnij Inject 1.5 mg subcutaneously once each week. Insulin Orovada, Disposable, (BD ULTRA-FINE MICRO PEN NEEDLE) 32 gauge x 1/4 ndle Use once daily with Lantus Omeprazole 40 mg capsule TAKE 1 CAPSULE BY MOUTH ONCE DAILY. Blood-Glucose Meter (ACCU-CHEK SANDIE) misc Lancets (SOFTCLIX LANCETS) lancets Test Blood Sugar 2 times per day. Dx: 250.00 ALLERGIES: Sulfa (Sulfonamide Antibiotics); Seasonal Allergies; Zocor [Simvastatin] PERSONAL HISTORY: Social History Marital status: Spouse name: Years of education: 10 Number of children: 2 Occupational History Occupation Employer Comment [employer] Social History Main Topics Smoking status: Former Smoker Packs/day: 0.75 Years: 30.00 Types: Cigarettes Quit date: 11/30/2008 Smokeless tobacco: Never Used Alcohol use: Yes 4.5 oz/week Cans of Beer (12oz): 3 per week Comment: Occasionally Drug use: No Sexual activity: Yes Partners with: Male Comment: hysterectomy FAMILY HISTORY Problem Relation Age of Onset - Diabetes Mother - Hypertension Mother - Stroke Mother - Arthritis Mother Lupus - Thyroid Mother - other (TUBERCULOSIS) Father not well known - Diabetes Brother - Hypertension Brother REVIEW OF SYSTEMS: General - denies fevers, denies extreme fatigue does feel tired Cardiovascular - denies chest pain Pulmonary - denies shortness of breath, denies coughing up blood Gastrointestinal - denies abdominal pain, denies hematemesis Neurological - denies seizures Genitourinary - denies burning with urination, denies blood in urine Hematological - denies spontaneous/prolonged bleeding Skin - denies nonhealing skin wounds Musculoskeletal - denies chronic joint/back pain Endocrine - has diabetes Psychological ? denies hallucinations PHYSICAL EXAMINATION: General: The patient is 58 year old female, well nourished, well hydrated in no acute distress. The patient is oriented to time, place, and person. VITALS: Blood pressure 170/90, pulse 80, weight 76.2 kg (168 lb). Body mass index is 29.76 kg/m?. Head ? Normocephalic. EOM intact with sclera clear and no icterus noted. Mouth with mucus membranes moist. Neck - supple with no jugular venous distention noted. Trachea is midline. No carotid bruits noted. No thyroid enlargement or thyroid nodules detected. No masses noted. Lungs ? clear to auscultation. Normal breath sounds. No rales/rhonchi/wheezing noted. No labored breathing noted, such as retractions. No cough heard. Heart ? normal S1 and S2 auscultated. No rubs/clicks/murmurs noted. Regular rate. Abdomen ? soft and benign. Normal bowel sounds. Extremities ? no calf tenderness noted. No pitting edema noted. Skin ? normal skin integrity. Lymph ? no cervical adenopathy detected, no supraclavicular adenopathy detected, no axillary adenopathy detected Neurological ? gait normal, no focal deficits noted Psych ? calm and appropriate RADIOLOGIC STUDIES: As Noted Assessment IMPRESSION: multinodular thyroid, abnormal left side neck lymph node PLAN: I have discussed the above with the patient. I have offered US guided needle biopsy of left thyroid nodule and the left sided lymph node. I have explained the procedure to the patient. I have counseled the patient as to the risks of the procedure, including but not limited to: infection, bleeding, injury to any blood vessels/nerves, scar tissue, wound infections, complications of anesthesia, etc. ? the patient understands. The patient wishes to proceed. She would also like valium prior to procedure. I have answered all questions to the patient?s satisfaction and the patient has no further questions. . Diagnoses: (E04.1) Left thyroid nodule (primary encounter diagnosis) (R59.9) Lymph node enlargement (F41.9) Anxiety Return to Clinic: The patient is instructed to follow-up with me after the procedure for discussion of the results. Farida Henriquez MD Referring Provider: ZACHARY HALL [[id number]] Allergies As of Date: 08/04/2018 Noted Allergy Reaction SULFA (SULFONAMIDE ANTIBIOTICS) 07/02/2006 7 - Swelling 9 - Itching SEASONAL ALLERGIES 01/25/2018 5 - Intolerance ZOCOR (SIMVASTATIN) 12/02/2005 7 - Swelling Date Reviewed: 08/04/2018 Reviewed by: Claudia Flores LPN - Fully Assessed Reason for Visit: left thyroid nodule [Other] Primary Visit Diagnosis:Left thyroid nodule [E04.1] Other Visit Diagnoses:Lymph node enlargement [R59.9] Anxiety [F41.9] Order(s):[] diazePAM (VALIUM) 5 mg tabletTake 1 tablet by mouth every 6 hours as needed for Sedation (take 1-2 tablets about 1 hour prior to procedure) for up to 1 day.Disp: 2 tabletRfl: 0 NEEDLE BIOPSY, LYMPH NODE(S) [11403PLH] Order #: [id number] NEEDLE BIOPSY, LYMPH NODE(S) [36142SFE] Order #: [id number] FUTURE Prescriptions as of 08/04/2018 Sig: DIAZEPAM 5 MG TABLET Take 1 tablet by mouth every * ATORVASTATIN 20 MG TABLET Take 1 tablet by mouth once d* METFORMIN ER 500 MG TABLET,EX* Take 2 tablets by mouth twice* LISINOPRIL 20 MG-HYDROCHLOROT* Take 1 tablet by mouth once d* TRAZODONE 100 MG TABLET Take 1 tablet by mouth daily * BASAGLAR NADIAPEN U-100 INSULI* INJECT 30 UNITS SUBCUTANEOUSL* DULAGLUTIDE 1.5 MG/0.5 ML SUB* Inject 1.5 mg subcutaneously * PEN NEEDLE, DIABETIC 32 GAUGE* Use once daily with Lantus X OMEPRAZOLE 40 MG CAPSULE,DEEJAY* TAKE 1 CAPSULE BY MOUTH ONCE * BLOOD-GLUCOSE METER LANCETS Test Blood Sugar 2 times per * Problem List As Of Date 08/04/2018 Noted Resolved Essential hypertension [I10] INVALID FOR* Other hyperlipidemia [E78.49] INVALID FOR* Type 2 diabetes mellitus without complication (*INVALID FOR* More... Genital warts [A63.0] INVALID FOR*03/27/2012 Dermatofibroma of lower extremity [D23.70] INVALID FOR*03/27/2012 Reticular Varicose Vein: R leg prox outer mid a*INVALID FOR*03/27/2012 Telangiectasia associated with the Reticular Ve*INVALID FOR*03/27/2012 Epidermal Cyst: L mid lower cheek jawline area *INVALID FOR*03/27/2012 Pilar Cyst: R side scalp [L72.11] INVALID FOR*03/27/2012 GERD (gastroesophageal reflux disease) [K21.9] INVALID FOR* Esophagitis, unspecified [K20.9] INVALID FOR* Symptomatic menopausal or female climacteric st*INVALID FOR* Multinodular thyroid [E04.2] INVALID FOR* Depressive disorder [F32.9] INVALID FOR* Prescriptions ordered this encounter Disp Refills Start End DIAZEPAM 5 MG TABLET 2 ta* 0 08/04/2018 08/05/2018 Class: Print RX Route: ORAL Sig: Take 1 tablet by mouth every 6 hours as needed for Sedation (take 1-2 tablets about 1 hour prior to procedure) for up to 1 day. Encounter Status:Closed by MD FARIDA HENRIQUEZ on 08/06/18 PROGRESS Observed: 07/27/2018 Status: COMPLETED Source: [place] 10:19 AM [facility] REPOSITORY O ID: [id number] Author: Mikaela Barbosa Service: (none) Author Type: Area Sales Manager Type: Progress Notes Filed: 07/27/2018 10:19 AM Note Text: Radiology Service Progress Note PATIENT NAME: Stefanie Wayne DATE OF SERVICE: July 27, 2018 TIME: 10:19 AM PATIENT IDENTITY VERIFICATION COMPLETED USING TWO (2) METHODS: Patient confirmed name verbally and Date of . PATIENT GENDER DATA: Female. status: : No status: N/A PATIENT RELEVANT IMPLANT DATA REVIEWED: Not Applicable RADIOLOGY DEPARTMENT: Ultrasound PERIPHERAL IV DATA: Not applicable SIGNED BY: MIKAELA BARBOSA RDMS RVRoslyn July 27, 2018 10:19 AM US THYROID/PARATHYROID Observed: 07/27/2018 Status: F Source: [place] 10:18 AM [facility] REPOSITORY * * *Final Report* * * DATE OF EXAM: Jul 27 2018 10:18AM [facility] 1048 - US THYROID/PARATHYROID / PROCEDURE REASON: Multinodular thyroid * * * * Physician Interpretation * * * * Ultrasound Thyroid: HISTORY: 58 years old Clinical information: Multinodular thyroid TECHNIQUE: Images provided: Sagittal and axial images of the thyroid.Images stored and permanent archive. Comparison: 04/23/2017 RESULT: Measurements: Right lobe 4.3 x 1.9 x 1.3 cm . Left lobe 3.9 x 1.4 x 1.9 cm . Isthmus 0.2 cm. Thyroid texture: Very heterogeneous Nodules: (Several ill-defined nodules. The largest ones measure) Right lobe: 6 x 5 x 4 mm in the lower pole and 4 mm in the lower pole at the junction with the isthmus . Both of these are hypoechoic. Previously measured 6 x 5 x 3 mm and 4 mm respectively. Left lobe: 1.0 x 0.9 x 0.6 cm in the lower pole . It contains calcification. Previously measured 8 x 6 x 7 mm Isthmus: None . There is a lymph node noted lateral to the thyroid on the LEFT side measuring 2.2 x 0.8 x 0.5 cm. IMPRESSION: Bilateral thyroid nodules the largest one in the lower pole of the LEFT side has enlarged Circular Clerk: PSCB Transcribe Date/Time: Jul 29 2018 9:59A Dictated by : ARACELI FLORES DO This examination was interpreted and the report reviewed and electronically signed by: ARACELI FLORES DO on Jul 29 2018 10:05AM EST [id number] CNCO Observed: 07/27/2018 Status: COMPLETED Source: [place] 9:27 AM [facility] REPOSITORY HNO ID: [id number] Author: Mammography Coordinator Service: (none) Author Type: Physician Type: Letter Filed: 07/28/2018 11:31 PM Note Text: July 27, 2018 PID: [id number] Stefanie Wayne [address] [place] [address] Dear Edna Wayne, We are pleased to inform you that the results of your recent breast imaging exam on 07/27/2018 are normal. Your mammogram demonstrates that you have dense breast tissue, which could hide abnormalities. Dense breast tissue, in and of itself, is a relatively common condition. Therefore, this information is not provided to cause undue concern; rather, it is to raise your awareness and promote discussion with your health care provider regarding the presence of dense breast tissue in addition to other risk factors. Early detection of cancer is very important. We also understand recommendations regarding breast cancer screening are controversial. Please discuss with your primary care provider which strategy is best for you and whether a mammogram is right for you. Your imaging studies and report will be kept on file at [facility] as part of your permanent medical record and are available for your continuing care. Thank you for allowing us to help in meeting your health care needs. Sincerely, Dr. Parekh Interpreting Radiologist [facility] (Normal over 40) [facility] SCREENING Observed: 07/27/2018 Status: F Source: [place] 9:18 AM [facility] REPOSITORY * * *Final Report* * * DATE OF EXAM: Jul 27 2018 9:18AM [facility] 0581 - [facility] SCREENING / PROCEDURE REASON: Screening mammogram, encounter for * * * * Physician Interpretation * * * * RESULT: #[id number] - [facility] SCREENING BILATERAL DIGITAL SCREENING MAMMOGRAM WITH CAD: 07/27/2018 HISTORY: Screening Mammogram, Encounter For /priors available for comparison. RESULT: TECHNIQUE: The study was acquired using full field digital technology and interpreted from soft copy. Current study was also evaluated with a Computer Aided Detection (CAD). Comparison is made to exams dated: 04/22/2017 mammogram - [facility], 03/24/2016 mammogram, 11/08/2012 mammogram - [facility], and 04/23/2011 mammogram. The tissue of both breasts is heterogeneously dense. This may lower the sensitivity of mammography. There are benign calcifications in both breasts. There also is a biopsy clip in the right breast. No significant masses, calcifications, or other findings are seen in either breast. There has been no significant interval change. IMPRESSION: There is no mammographic evidence of malignancy. A 1 year screening mammogram is recommended. Kamlesh vela/damien:07/27/2018 09:27:52 Interlibrary Loan Specialist(s): RT Won(R)(M), [facility] letter sent: Normal over 40 Mammogram BI-RADS: 2 Benign finding Multiple national specialty organizations have released breast cancer screening guidelines for women at average risk for developing breast cancer - guidelines that are based on both evidence and opinion, yet differ on when to start and how often to screen for breast cancer. With representation from Breast Imaging, Internal Medicine, Women's Health, Family Medicine, and Medical/Surgical Oncology, the [facility] has carefully reviewed the data and reached the following consensus: 1) All women should engage in shared decision-making with their providers to decide when to start and how often to screen; 2) All women should have the opportunity to start screening mammography at age 40; 3) For women ages 45-55, we recommend annual screening mammograms; 4) For women ages 55 and over, we support both the transition from an annual to a biennial interval if this aligns more with patient's values and preferences, or continuation with annual screening; 5) All women should discuss with their providers when to stop screening mammograms. Circular Clerk: Damien Transcribe Date/Time: Jul 27 2018 8:52A Dictated by: KAMLESH PAREKH MD This examination was interpreted and the report reviewed and electronically signed by: KAMLESH PAREKH MD on Jul 27 2018 9:27AM EST [id number] PROCEDURE Observed: 07/27/2018 Status: COMPLETED Source: [place] 8:51 AM [facility] REPOSITORY HNO ID: [id number] Author: Liliana Upton (Rt) Service: (none) Author Type: Harbormaster Type: Procedures Filed: 07/27/2018 9:16 AM Note Text: Radiology Service Progress Note PATIENT NAME: Stefanie Wayne DATE OF SERVICE: July 27, 2018 TIME: 8:51 AM PATIENT IDENTITY VERIFICATION COMPLETED USING TWO (2) METHODS: Patient confirmed name verbally and Date of . PATIENT GENDER DATA: Female. status: : No status: NO. PATIENT RELEVANT IMPLANT DATA REVIEWED: Not Applicable RADIOLOGY DEPARTMENT: [facility] [place] DATA: Not applicable SIGNED BY: RT Won July 27, 2018 8:51 AM PROGRESS Observed: 07/19/2018 Status: COMPLETED Source: [place] 9:12 AM [facility] REPOSITORY HNO ID: [id number] Author: Zachary Hall Service: (none) Author Type: Physician Type: Progress Notes Filed: 07/19/2018 9:43 AM Note Text: Refills resent to preferred pharmacy, [facility]. Signed Prescriptions Disp Refills atorvastatin (LIPITOR) 20 mg tablet 90 tablet 3 Sig: Take 1 tablet by mouth once daily. JEAN: No metFORMIN ER (GLUCOPHAGE XR) 500 mg 24 hr tablet 360 tablet 3 Sig: Take 2 tablets by mouth twice daily with meals. JEAN: No lisinopril-hydrochlorothiazide (PRINZIDE,ZESTORETIC) 20-12.5 mg per tablet 90 tablet 3 Sig: Take 1 tablet by mouth once daily. JEAN: No traZODone (DESYREL) 100 mg tablet 90 tablet 3 Sig: Take 1 tablet by mouth daily at bedtime. JEAN: No Zachary Hall MD PROGRESS Observed: 07/19/2018 Status: COMPLETED Source: [place] 8:38 AM [facility] REPOSITORY HNO ID: [id number] Author: Zachary Hall Service: (none) Author Type: Physician Type: Progress Notes Filed: 07/19/2018 9:43 AM Note Text: This note was created using Avvoriter. Subjective Stefanie Wayne is a 58 year old female was here for follow up. Her diabetes mellitus was labile with glucose readings reportedly in the low 100 to 200 range. Her hypertension was historically controlled. Lipids were pending. Depression was increased due to in the family. She requested increase in trazodone which was effective. Thyroid needed follow up. Colonoscopy was also recommended. ACTIVE PROBLEM LIST Essential Hypertension Other Hyperlipidemia Type 2 Diabetes Mellitus Without Complication (Hcc) Gerd (Gastroesophageal Reflux Disease) Esophagitis, Unspecified Symptomatic Menopausal Or Female Climacteric States Multinodular Thyroid Depressive Disorder Current Outpatient Prescriptions: atorvastatin (LIPITOR) 20 mg tablet Take 1 tablet by mouth once daily. metFORMIN ER (GLUCOPHAGE XR) 500 mg 24 hr tablet Take 2 tablets by mouth twice daily with meals. BASAGLAR KWIKPEN U-100 INSULIN 100 unit/mL (3 mL) inpn INJECT 30 UNITS SUBCUTANEOUSLY EVERY MORNING. dulaglutide (TRULICITY) 1.5 mg/0.5 mL pnij Inject 1.5 mg subcutaneously once each week. lisinopril-hydrochlorothiazide (PRINZIDE,ZESTORETIC) 20-12.5 mg per tablet Take 1 tablet by mouth once daily. Insulin Orovada, Disposable, (BD ULTRA-FINE MICRO PEN NEEDLE) 32 gauge x 1/4 ndle Use once daily with Lantus Omeprazole 40 mg capsule TAKE 1 CAPSULE BY MOUTH ONCE DAILY. Blood-Glucose Meter (ACCU-CHEK SANDIE) misc Lancets (SOFTCLIX LANCETS) lancets Test Blood Sugar 2 times per day. Dx: 250.00 traZODone (DESYREL) 100 mg tablet Take 1 tablet by mouth daily at bedtime. traZODone (DESYREL) 50 mg tablet Take 1 tablet by mouth daily at bedtime. No current facility-administered medications for this visit. Review of Systems Constitutional: Negative. Respiratory: Negative. Cardiovascular: Negative. Gastrointestinal: Negative. Genitourinary: Negative. Musculoskeletal: Positive for arthralgias. Finger arthralgias, mild. Psychiatric/Behavioral: Negative. Objective BP 138/78 (BP Site: Right Arm, BP Position: Sitting, BP Cuff Size: Regular Adult) Pulse 64 Temp 36.1 ?C (96.9 ?F) (Left Tympanic) Resp 16 Wt 76.2 kg (168 lb) BMI 29.76 kg/m? Physical Exam Constitutional: She appears well-nourished. Neck: No thyromegaly present. Cardiovascular: Normal heart sounds and intact distal pulses. Pulmonary/Chest: Breath sounds normal. Musculoskeletal: She exhibits no edema. Psychiatric: She has a normal mood and affect. BP 122/78 (BP Site: Left Arm, BP Position: Sitting, BP Cuff Size: Regular Adult) Pulse 64 Temp 36.1 ?C (96.9 ?F) (Left Tympanic) Resp 16 Wt 76.2 kg (168 lb) BMI 29.76 kg/m? Labs pending. Assessment and Plan 1. Type 2 diabetes mellitus without complication, with long- term current use of insulin ([facility]) - ICD9: 250.00, V58.67, ICD10: E11.9, Z79.4 (primary diagnosis) worsening control - Continue current medications - METFORMIN ER 500 MG TABLET,EXTENDED RELEASE 24 HR 2. Need for vaccination - ICD9: V05.9, ICD10: Z23 - ADMIN OF INFLUENZA VACCINE - INFLUENZA VACCINE QUADRIVALENT AGE 3 YRS PLUS + IM 3. Other hyperlipidemia - ICD9: 272.4, ICD10: E78.49 - to be determined upon return of lab results - ATORVASTATIN 20 MG TABLET 4. Multinodular thyroid - ICD9: 241.1, ICD10: E04.2 - US THYROID/PARATHYROID 5. Essential hypertension - ICD9: 401.9, ICD10: I10 - good control - Continue current medication(s) - Goal of BP <130/80 - LISINOPRIL 20 MG-HYDROCHLOROTHIAZIDE 12.5 MG TABLET 6. Depressive disorder - ICD9: 311, ICD10: F32.9 Dose increased. - TRAZODONE 100 MG TABLET 7. Screening mammogram, encounter for - ICD9: V76.12, ICD10: Z12.31 - [facility] SCREENING Zachary Hall MD CNOV Observed: 07/19/2018 Status: COMPLETED Source: [place] 8:00 AM [facility] Office Visit (INTMWS) STEFANIE WAYNE ([id number]) 1960 F Date Time Provider Department 07/19/18 8:00 AM ZACHARY HALL INTMWS During your visit today, we recorded the following information about you: Temperature Pulse Respiration Blood pressure 96.9 degrees 64/minute 16/minute 122/78 Weight 76.2 kg Sherly Cummins LPN 07/19/2018 8:15 AM Signed Influenza Vaccine Documentation: ? Patient is identified by name and date of : Yes ? Patient is older than 6 months of age: Yes ? Patient denies a severe allergy to any vaccine component or to a previous dose of influenza vaccine: Yes FOR EGG ALLERGY CONCERNS, REFER TO PROVIDER. ? Denies allergy to gelatin, formaldehyde, thimerosol :Yes ? Patient is afebrile and not moderately or severely ill: Yes ? Does the patient have a history of Guillain ?[place] Syndrome (a severe paralytic illness): No ? Denies bone marrow transplant prior 6 months or solid organ transplant prior 3 months: Yes ? Denies a history of fainting after a prior injection or medical procedure? Yes If patient has fainted in the past, the CDC recommends sitting or lying down for 15 minutes after the vaccination. ? VIS sheet provided: Yes ? See Immunization Form in [facility] for details of immunizations administered today. If patient reports dizziness, vision changes or ringing in the ears post vaccination ? please have patient sit or lie down for 15 minutes. Zachary Hall MD 07/19/2018 9:43 AM Signed This note was created using [employer]. Subjective Stefanie Wayne is a 58 year old female was here for follow up. Her diabetes mellitus was labile with glucose readings reportedly in the low 100 to 200 range. Her hypertension was historically controlled. Lipids were pending. Depression was increased due to in the family. She requested increase in trazodone which was effective. Thyroid needed follow up. Colonoscopy was also recommended. ACTIVE PROBLEM LIST Essential Hypertension Other Hyperlipidemia Type 2 Diabetes Mellitus Without Complication (Hcc) Gerd (Gastroesophageal Reflux Disease) Esophagitis, Unspecified Symptomatic Menopausal Or Female Climacteric States Multinodular Thyroid Depressive Disorder Current Outpatient Prescriptions: atorvastatin (LIPITOR) 20 mg tablet Take 1 tablet by mouth once daily. metFORMIN ER (GLUCOPHAGE XR) 500 mg 24 hr tablet Take 2 tablets by mouth twice daily with meals. BASAGLAR KWIKPEN U-100 INSULIN 100 unit/mL (3 mL) inpn INJECT 30 UNITS SUBCUTANEOUSLY EVERY MORNING. dulaglutide (TRULICITY) 1.5 mg/0.5 mL pnij Inject 1.5 mg subcutaneously once each week. lisinopril-hydrochlorothiazide (PRINZIDE,ZESTORETIC) 20-12.5 mg per tablet Take 1 tablet by mouth once daily. Insulin Orovada, Disposable, (BD ULTRA-FINE MICRO PEN NEEDLE) 32 gauge x 1/4 ndle Use once daily with Lantus Omeprazole 40 mg capsule TAKE 1 CAPSULE BY MOUTH ONCE DAILY. Blood-Glucose Meter (ACCU-CHEK SANDIE) misc Lancets (SOFTCLIX LANCETS) lancets Test Blood Sugar 2 times per day. Dx: 250.00 traZODone (DESYREL) 100 mg tablet Take 1 tablet by mouth daily at bedtime. traZODone (DESYREL) 50 mg tablet Take 1 tablet by mouth daily at bedtime. No current facility-administered medications for this visit. Review of Systems Constitutional: Negative. Respiratory: Negative. Cardiovascular: Negative. Gastrointestinal: Negative. Genitourinary: Negative. Musculoskeletal: Positive for arthralgias. Finger arthralgias, mild. Psychiatric/Behavioral: Negative. Objective BP 138/78 (BP Site: Right Arm, BP Position: Sitting, BP Cuff Size: Regular Adult) Pulse 64 Temp 36.1 ?C (96.9 ?F) (Left Tympanic) Resp 16 Wt 76.2 kg (168 lb) BMI 29.76 kg/m? Physical Exam Constitutional: She appears well-nourished. Neck: No thyromegaly present. Cardiovascular: Normal heart sounds and intact distal pulses. Pulmonary/Chest: Breath sounds normal. Musculoskeletal: She exhibits no edema. Psychiatric: She has a normal mood and affect. BP 122/78 (BP Site: Left Arm, BP Position: Sitting, BP Cuff Size: Regular Adult) Pulse 64 Temp 36.1 ?C (96.9 ?F) (Left Tympanic) Resp 16 Wt 76.2 kg (168 lb) BMI 29.76 kg/m? Labs pending. Assessment and Plan 1. Type 2 diabetes mellitus without complication, with long- term current use of insulin (HCC) - ICD9: 250.00, V58.67, ICD10: E11.9, Z79.4 (primary diagnosis) worsening control - Continue current medications - METFORMIN ER 500 MG TABLET,EXTENDED RELEASE 24 HR 2. Need for vaccination - ICD9: V05.9, ICD10: Z23 - ADMIN OF INFLUENZA VACCINE - INFLUENZA VACCINE QUADRIVALENT AGE 3 YRS PLUS + IM 3. Other hyperlipidemia - ICD9: 272.4, ICD10: E78.49 - to be determined upon return of lab results - ATORVASTATIN 20 MG TABLET 4. Multinodular thyroid - ICD9: 241.1, ICD10: E04.2 - US THYROID/PARATHYROID 5. Essential hypertension - ICD9: 401.9, ICD10: I10 - good control - Continue current medication(s) - Goal of BP <130/80 - LISINOPRIL 20 MG-HYDROCHLOROTHIAZIDE 12.5 MG TABLET 6. Depressive disorder - ICD9: 311, ICD10: F32.9 Dose increased. - TRAZODONE 100 MG TABLET 7. Screening mammogram, encounter for - ICD9: V76.12, ICD10: Z12.31 - [facility] SCREENING MD Zachary Navarrete MD 07/19/2018 9:43 AM Signed Refills resent to preferred pharmacy, [facility]. Signed Prescriptions Disp Refills atorvastatin (LIPITOR) 20 mg tablet 90 tablet 3 Sig: Take 1 tablet by mouth once daily. JEAN: No metFORMIN ER (GLUCOPHAGE XR) 500 mg 24 hr tablet 360 tablet 3 Sig: Take 2 tablets by mouth twice daily with meals. JEAN: No lisinopril-hydrochlorothiazide (PRINZIDE,ZESTORETIC) 20-12.5 mg per tablet 90 tablet 3 Sig: Take 1 tablet by mouth once daily. JEAN: No traZODone (DESYREL) 100 mg tablet 90 tablet 3 Sig: Take 1 tablet by mouth daily at bedtime. JEAN: No Zachary Hall MD Referring Provider: SELF [200] Allergies As of Date: 07/19/2018 Noted Allergy Reaction SULFA (SULFONAMIDE ANTIBIOTICS) 07/02/2006 7 - Swelling 9 - Itching SEASONAL ALLERGIES 01/25/2018 5 - Intolerance ZOCOR (SIMVASTATIN) 12/02/2005 7 - Swelling Date Reviewed: 07/19/2018 Reviewed by: Sherly Cummins LPN - Fully Assessed Reason for Visit: F/U 6 Month [444] Primary Visit Diagnosis:Type 2 diabetes mellitus without complication, with long-term current use of insulin (HCC) [E11.9, Z79.4] Other Visit Diagnoses:Need for vaccination [Z23] Other hyperlipidemia [E78.49] Multinodular thyroid [E04.2] Essential hypertension [I10] Depressive disorder [F32.9] Screening mammogram, encounter for [Z12.31] Order(s):ADMIN OF INFLUENZA VACCINE [[id number]] Order #: [id number]: 1 INFLUENZA VACCINE QUADRIVALENT AGE 3 YRS PLUS + IM [[id number]] Order #: [id number] [facility] S[facility]EN[facility] [[id number]] Order #: [id number] FUTURE US THYROID/PARATHYROID [[id number]] Order #: [id number] FUTURE atorvastatin (LIPITOR) 20 mg tabletTake 1 tablet by mouth once daily.Disp: 90 tabletRfl: 3 metFORMIN ER (GLUCOPHAGE XR) 500 mg 24 hr tabletTake 2 tablets by mouth twice daily with meals.Disp: 360 tabletRfl: 3 lisinopril-hydrochlorothiazide (PRINZIDE,ZESTORETIC) 20-12.5 mg per tabletTake 1 tablet by mouth once daily.Disp: 90 tabletRfl: 3 traZODone (DESYREL) 100 mg tabletTake 1 tablet by mouth daily at bedtime.Disp: 90 tabletRfl: 3 Prescriptions as of 07/19/2018 Sig: ATORVASTATIN 20 MG TABLET Take 1 tablet by mouth once d* METFORMIN ER 500 MG TABLET,EX* Take 2 tablets by mouth twice* LISINOPRIL 20 MG-HYDROCHLOROT* Take 1 tablet by mouth once d* BASAGLAR NADIAPEN U-100 INSULI* INJECT 30 UNITS SUBCUTANEOUSL* DULAGLUTIDE 1.5 MG/0.5 ML SUB* Inject 1.5 mg subcutaneously * PEN NEEDLE, DIABETIC 32 GAUGE* Use once daily with Lantus OMEPRAZOLE 40 MG CAPSULE,DEEJAY* TAKE 1 CAPSULE BY MOUTH ONCE * BLOOD-GLUCOSE METER LANCETS Test Blood Sugar 2 times per * TRAZODONE 100 MG TABLET Take 1 tablet by mouth daily * Problem List As Of Date 07/19/2018 Noted Resolved Essential hypertension [I10] INVALID FOR* Other hyperlipidemia [E78.49] INVALID FOR* Type 2 diabetes mellitus without complication (*INVALID FOR* More... Genital warts [A63.0] INVALID FOR*03/27/2012 Dermatofibroma of lower extremity [D23.70] INVALID FOR*03/27/2012 Reticular Varicose Vein: R leg prox outer mid a*INVALID FOR*03/27/2012 Telangiectasia associated with the Reticular Ve*INVALID FOR*03/27/2012 Epidermal Cyst: L mid lower cheek jawline area *INVALID FOR*03/27/2012 Pilar Cyst: R side scalp [L72.11] INVALID FOR*03/27/2012 GERD (gastroesophageal reflux disease) [K21.9] INVALID FOR* Esophagitis, unspecified [K20.9] INVALID FOR* Symptomatic menopausal or female climacteric st*INVALID FOR* Multinodular thyroid [E04.2] INVALID FOR* Depressive disorder [F32.9] INVALID FOR* Visit Notes: >> Sherly Mcknight Jul 19, 2018 8:14 AM Status: Signed Influenza Vaccine Documentation: ? Patient is identified by name and date of : Yes ? Patient is older than 6 months of age: Yes ? Patient denies a severe allergy to any vaccine component or to a previous dose of influenza vaccine: Yes FOR EGG ALLERGY CONCERNS, REFER TO PROVIDER. ? Denies allergy to gelatin, formaldehyde, thimerosol :Yes ? Patient is afebrile and not moderately or severely ill: Yes ? Does the patient have a history of Guillain ?[place] Syndrome (a severe paralytic illness): No ? Denies bone marrow transplant prior 6 months or solid organ transplant prior 3 months: Yes ? Denies a history of fainting after a prior injection or medical procedure? Yes If patient has fainted in the past, the CDC recommends sitting or lying down for 15 minutes after the vaccination. ? VIS sheet provided: Yes ? See Immunization Form in [facility] for details of immunizations administered today. If patient reports dizziness, vision changes or ringing in the ears post vaccination ? please have patient sit or lie down for 15 minutes. Prescriptions ordered this encounter Disp Refills Start End ATORVASTATIN 20 MG TABLET 90 t* 3 07/19/2018 07/19/2018 Route: ORAL Sig: Take 1 tablet by mouth once daily. METFORMIN ER 500 MG TABLET,EXTENDED * 360 * 3 07/19/2018 07/19/2018 Route: ORAL Sig: Take 2 tablets by mouth twice daily with meals. TRAZODONE 100 MG TABLET 90 t* 3 07/19/2018 07/19/2018 Route: ORAL Sig: Take 1 tablet by mouth daily at bedtime. LISINOPRIL 20 MG-HYDROCHLOROTHIAZIDE* 90 t* 3 07/19/2018 07/19/2018 Route: ORAL Sig: Take 1 tablet by mouth once daily. ATORVASTATIN 20 MG TABLET 90 t* 3 07/19/2018 Route: ORAL Sig: Take 1 tablet by mouth once daily. METFORMIN ER 500 MG TABLET,EXTENDED * 360 * 3 07/19/2018 Route: ORAL Sig: Take 2 tablets by mouth twice daily with meals. LISINOPRIL 20 MG-HYDROCHLOROTHIAZIDE* 90 t* 3 07/19/2018 Route: ORAL Sig: Take 1 tablet by mouth once daily. TRAZODONE 100 MG TABLET 90 t* 3 07/19/2018 Route: ORAL Sig: Take 1 tablet by mouth daily at bedtime. Medications Discontinued During This Encounter cyclobenzaprine (FLEXERIL) 10 mg tab* 20 t* 0 08/21/2017 07/19/2018 Route: ORAL Sig: Take 1 tablet by mouth twice daily as needed for Muscle Spasm. Patient not taking: Reported on 01/25/2018 Disc: Reason for discontinue is not on file. atorvastatin (LIPITOR) 20 mg tablet 90 t* 3 06/28/2017 07/19/2018 Route: ORAL Sig: Take 1 tablet by mouth once daily. Disc: Reason for discontinue is not on file. metFORMIN ER (GLUCOPHAGE XR) 500 mg * 360 * 3 06/28/2017 07/19/2018 Cmt: New directions should state with meals Route: ORAL Sig: Take 2 tablets by mouth twice daily with meals. Disc: Reason for discontinue is not on file. traZODone (DESYREL) 50 mg tablet 90 t* 3 01/25/2018 07/19/2018 Route: ORAL Sig: Take 1 tablet by mouth daily at bedtime. Disc: Dosage adjustment lisinopril-hydrochlorothiazide (PRIN* 90 t* 3 08/02/2017 07/19/2018 Route: ORAL Sig: Take 1 tablet by mouth once daily. Disc: Reason for discontinue is not on file. atorvastatin (LIPITOR) 20 mg tablet 90 t* 3 07/19/2018 07/19/2018 Route: ORAL Sig: Take 1 tablet by mouth once daily. Disc: Reason for discontinue is not on file. metFORMIN ER (GLUCOPHAGE XR) 500 mg * 360 * 3 07/19/2018 07/19/2018 Route: ORAL Sig: Take 2 tablets by mouth twice daily with meals. Disc: Reason for discontinue is not on file. lisinopril-hydrochlorothiazide (PRIN* 90 t* 3 07/19/2018 07/19/2018 Route: ORAL Sig: Take 1 tablet by mouth once daily. Disc: Reason for discontinue is not on file. traZODone (DESYREL) 100 mg tablet 90 t* 3 07/19/2018 07/19/2018 Route: ORAL Sig: Take 1 tablet by mouth daily at bedtime. Disc: Reason for discontinue is not on file. Disposition: Return in about 4 months (around 11/16/2018). Follow-up and Disposition History Recorded Encounter Status:Closed by ZACHARY HALL MD on 07/19/18 ALBUMIN/CREAT RATIO Collected: 07/19/2018 Status: F Source: [place] 7:55 AM [facility] RE[facility] TYPE CODE TESTS RESULT OUT OF REFERENCE UNITS RANGE LAB UCRR 20-300 mg/dL 197.8 Creatinine,Ur ine,Ran LAB UALBR 0.0-23.0 mg/L <12.0 Albumin Urine Random LAB UALBCR 0-30 mg/g Not Albumin/Creat calculated Ratio Performed By: #### UACR #### [facility] [address], [place] [address] HEMOGLOBIN A1C Collected: 07/19/2018 Status: F Source: [place] 7:53 AM [facility] TYPE CODE TESTS RESULT OUT OF REFERENCE UNITS RANGE LAB HGBA1C 4.3-5.6 % High Hemoglobin A1c 9.9 Result Comment: [place] [employer] guidelines indicate that patients with HgbA1c in the range 5.7-6.4% are at increased risk for development of diabetes, and intervention by lifestyle modification may be beneficial. HgbA1c greater or equal to 6.5% is considered diagnostic of diabetes. LAB HBA0 mg/dL Est. Average Glucose 237 Result Comment: eAG: (Estimated average glucose) is a calculated value from HgbA1c and is customer service representative teacher of the average blood glucose level in the last 2-3 month period. Performed By: #### HBA1C, BMP #### [facility] [address], [place] [address] BASIC METABOLIC PANL Collected: 07/19/2018 Status: F Source: [place] 7:53 AM [facility] TYPE CODE TESTS RESULT OUT OF REFERENCE UNITS RANGE LAB GLU 74-99 mg/dL High Glucose 179 Result Comment: The [place] Diabetes Association (ADA) provides guidance for cutoff values for fasting glucose and random glucose. The ADA defines fasting as no caloric intake for at least 8 hours. Fas ting plasma glucose results between 100 to 125 mg/dL indicate increased risk for diabetes (prediabetes). Fasting plasma glucose results greater than or equal to 126 mg/dL meet the criteria for diagnosis of diabetes. In the absence of unequivocal hyperglycemia, results should be confirmed by repeat testing. In a patient with classic symptoms of hyperglycemia or hyperglycemic crisis, random plasma glucose results greater than or equal to 200 mg/dL meet the criteria for diagnosis of diabetes. Reference: Standards of Medical Care in Diabetes 2016, [place] [employer] Association. Diabetes Care. 2016.39(Suppl 1). LAB BUN 7-21 mg/dL BUN 14 LAB CRET 0.58-0.96 mg/dL Creatinine 0.77 LAB NA 136-144 mmol/L Sodium 141 LAB K 3.7-5.1 mmol/L Potassium 3.8 LAB CL 97-105 mmol/L Chloride 101 LAB CO2 22-30 mmol/L CO2 26 LAB AGAP 9-18 mmol/L Anion Gap 14 LAB CA 8.5-10.2 mg/dL Calcium, Total 9.6 LAB GFRAA eGFR- Amer. >60 LAB GFRNAA . eGFR-All Other Races >60 Result Comment: eGFR (Estimated GFR) Units of measure: mL/min/1.73 meters squared eGFR is derived from the reexpressed MDRD Study equation using the following parameters: serum creatinine, age, gender and race. The creatinine assay has been calibrated to be traceable to IDMS. An eGFR <60 mL/min/1.73m2 for >3 months is consistent with chronic kidney disease. Refer to KDOQI guidelines for clinical interpretation. In patients with unstable renal function, e.g. those with acute kidney injury, the eGFR may not accurately reflect actual GFR. Performed By: #### HBA1C, BMP #### [facility] [address] [place], [place] [address] CNNURSE Observed: 01/27/2018 Status: COMPLETED Source: [place] 2:45 PM [facility] Nurse Visit (FAMPWS) STEFANIE WAYNE ([id number]) 1960 F Date Time Provider Department 01/27/18 2:45 PM [place] NURSE FAMCONRADO During your visit today, we recorded the following information about you: Thien Barraza LPN 01/27/2018 2:40 PM Signed Patient presents for PPD read only. Denies any problems at this time. Thien Barraza LPN Referring Provider: SELF [200] Allergies As of Date: 01/27/2018 Noted Allergy Reaction SULFA (SULFONAMIDE ANTIBIOTICS) 07/02/2006 7 - Swelling 9 - Itching SEASONAL ALLERGIES 01/25/2018 5 - Intolerance ZOCOR (SIMVASTATIN) 12/02/2005 7 - Swelling Date Reviewed: 01/25/2018 Reviewed by: Sherly Cummins LPN - Fully Assessed Reason for Visit: PPD Read [0401] Primary Visit Diagnosis:Screening examination for pulmonary tuberculosis [Z11.1] Prescriptions as of 01/27/2018 Sig: TRAZODONE 50 MG TABLET Take 1 tablet by mouth daily * DULAGLUTIDE 1.5 MG/0.5 ML SUB* Inject 1.5 mg subcutaneously * INSULIN GLARGINE (U-100) 100 * Inject 30 Units subcutaneousl* CYCLOBENZAPRINE 10 MG TABLET Take 1 tablet by mouth twice * Patient not taking: Reported on 01/25/2018 LISINOPRIL 20 MG-HYDROCHLOROT* Take 1 tablet by mouth once d* ATORVASTATIN 20 MG TABLET Take 1 tablet by mouth once d* PEN NEEDLE, DIABETIC 32 GAUGE* Use once daily with Lantus METFORMIN ER 500 MG TABLET,EX* Take 2 tablets by mouth twice* OMEPRAZOLE 40 MG CAPSULE,DEEJAY* TAKE 1 CAPSULE BY MOUTH ONCE * BLOOD-GLUCOSE METER LANCETS Test Blood Sugar 2 times per * Problem List As Of Date 01/27/2018 Noted Resolved Essential hypertension [I10] INVALID FOR* Other hyperlipidemia [E78.4] INVALID FOR* Type 2 diabetes mellitus without complication (*INVALID FOR* More... Genital warts [A63.0] INVALID FOR*03/27/2012 Dermatofibroma of lower extremity [D23.70] INVALID FOR*03/27/2012 Reticular Varicose Vein: R leg prox outer mid a*INVALID FOR*03/27/2012 Telangiectasia associated with the Reticular Ve*INVALID FOR*03/27/2012 Epidermal Cyst: L mid lower cheek jawline area *INVALID FOR*03/27/2012 Pilar Cyst: R side scalp [L72.11] INVALID FOR*03/27/2012 GERD (gastroesophageal reflux disease) [K21.9] INVALID FOR* Esophagitis, unspecified [K20.9] INVALID FOR* Symptomatic menopausal or female climacteric st*INVALID FOR* Multinodular thyroid [E04.2] INVALID FOR* Encounter Status:Closed by THIEN BARRAZA LPN on 01/27/18 PROGRESS Observed: 01/27/2018 Status: COMPLETED Source: [place] 2:36 PM [facility] [place] REPOSITORY HNO ID: [id number] Author: Thien Barraza LPN Service: (none) Author Type: (none) Type: Progress Notes Filed: 01/27/2018 2:40 PM Note Text: Patient presents for PPD read only. Denies any problems at this time. Thien Barraza LPN PROGRESS Observed: 01/25/2018 Status: COMPLETED Source: [place] 4:08 PM [facility] RE[facility] HNO ID: [id number] Author: Sherly Cummins LPN Service: (none) Author Type: (none) Type: Progress Notes Filed: 01/26/2018 10:16 AM Note Text: This note was created using Neul. Subjective Stefanie Wayne is a 57 year old female. Review of Systems Objective BP 116/72 (BP Site: Left Arm, BP Position: Sitting, BP Cuff Size: Regular Adult) Pulse 68 Temp (!) 35.8 ?C (96.5 ?F) (Left Tympanic) Resp 18 Wt 70.8 kg (156 lb) BMI 27.63 kg/m? Physical Exam Assessment and Plan PROGRESS Observed: 01/25/2018 Status: COMPLETED Source: [place] 3:45 PM [facility] [place] REPOSITORY HNO ID: [id number] Author: Zachary Hall Service: (none) Author Type: Physician Type: Progress Notes Filed: 01/26/2018 10:16 AM Note Text: This note was created using [employer]. Subjective Stefanie Wayne is a 57 year old female here for follow up. She also needed a school physical, and a 2 step PPD for an [employer] program. She denied any limitations for lifting or caregiving. Her depression was well controlled. Her diabetes mellitus was much improved, but she did not bring her glucose meter. Review of Systems Constitutional: Negative. Respiratory: Negative. Cardiovascular: Negative. Gastrointestinal: Negative. Genitourinary: Negative. Musculoskeletal: Negative. Neurological: Negative. Psychiatric/Behavioral: Negative. ACTIVE PROBLEM LIST Essential Hypertension Other Hyperlipidemia Type 2 Diabetes Mellitus Without Complication (Hcc) Gerd (Gastroesophageal Reflux Disease) Esophagitis, Unspecified Symptomatic Menopausal Or Female Climacteric States Multinodular Thyroid Current Outpatient Prescriptions: traZODone (DESYREL) 50 mg tablet Take 1 tablet by mouth daily at bedtime. dulaglutide (TRULICITY) 1.5 mg/0.5 mL pnij Inject 1.5 mg subcutaneously once each week. insulin glargine (BASAGLAR KWIKPEN) 100 unit/mL (3 mL) inpn Inject 30 Units subcutaneously every morning. lisinopril-hydrochlorothiazide (PRINZIDE,ZESTORETIC) 20-12.5 mg per tablet Take 1 tablet by mouth once daily. atorvastatin (LIPITOR) 20 mg tablet Take 1 tablet by mouth once daily. Insulin Orovada, Disposable, (BD ULTRA-FINE MICRO PEN NEEDLE) 32 gauge x 1/4 ndle Use once daily with Lantus metFORMIN ER (GLUCOPHAGE XR) 500 mg 24 hr tablet Take 2 tablets by mouth twice daily with meals. Omeprazole 40 mg capsule TAKE 1 CAPSULE BY MOUTH ONCE DAILY. Blood-Glucose Meter (ACCU-CHEK SANDIE) misc Lancets (SOFTCLIX LANCETS) lancets Test Blood Sugar 2 times per day. Dx: 250.00 cyclobenzaprine (FLEXERIL) 10 mg tablet Take 1 tablet by mouth twice daily as needed for Muscle Spasm. (Patient not taking: Reported on 01/25/2018 ) No current facility-administered medications for this visit. Objective BP 116/72 (BP Site: Left Arm, BP Position: Sitting, BP Cuff Size: Regular Adult) Pulse 68 Temp (!) 35.8 ?C (96.5 ?F) (Left Tympanic) Resp 18 Wt 70.8 kg (156 lb) BMI 27.63 kg/m? Physical Exam Constitutional: She appears well-developed and well-nourished. HENT: Head: Normocephalic. Neck: Neck supple. No thyromegaly present. Cardiovascular: S1 normal and S2 normal. Exam reveals no gallop. No murmur heard. Pulmonary/Chest: Breath sounds normal. She has no wheezes. She has no rales. Abdominal: Soft. There is no tenderness. Musculoskeletal: Normal range of motion. She exhibits no edema, tenderness or deformity. Lymphadenopathy: She has no cervical adenopathy. Neurological: She is alert. Coordination normal. Psychiatric: She has a normal mood and affect. Her behavior is normal. Assessment and Plan 1. Type 2 diabetes mellitus without complication, with long- term current use of insulin (HCC) - ICD9: 250.00, V58.67, ICD10: E11.9, Z79.4 (primary diagnosis) improved control - Continue current medications - HEMOGLOBIN A1C (POC) - BASIC METABOLIC PNL - HGB A1C - ALBUMIN/CREAT RATIO RND UR 2. Depressive disorder - ICD9: 311, ICD10: F32.9 Stable. Refilled for one year. - TRAZODONE 50 MG TABLET 3. Essential hypertension - ICD9: 401.9, ICD10: I10 - good control - Continue current medication(s) 4. Screening for tuberculosis - ICD9: V74.1, ICD10: Z11.1 Two step needed. - PPD (TB INTRADERMAL 45524) B/O 5. School physical exam - ICD9: V70.5, ICD10: Z02.0 She will hold on to her form, and leave the form for completion after her 2nd TB test. - PPD (TB INTRADERMAL 20320) B/O Zachary Hall MD CNOV Observed: 01/25/2018 Status: COMPLETED Source: [place] 2:40 PM [facility] REPOSITORY Office Visit (INTMWS) STEFANIE WAYNE ([id number]) 1960 F Date Time Provider Department 01/25/18 2:40 PM ZACHARY HALL During your visit today, we recorded the following information about you: Temperature Pulse Respiration Blood pressure 96.5 degrees 68/minute 18/minute 116/72 Weight 70.8 kg Zachary Hall MD 01/26/2018 10:16 AM Signed This note was created using NoteWriter. Subjective Stefanie Wayne is a 57 year old female here for follow up. She also needed a school physical, and a 2 step PPD for an [employer] program. She denied any limitations for lifting or caregiving. Her depression was well controlled. Her diabetes mellitus was much improved, but she did not bring her glucose meter. Review of Systems Constitutional: Negative. Respiratory: Negative. Cardiovascular: Negative. Gastrointestinal: Negative. Genitourinary: Negative. Musculoskeletal: Negative. Neurological: Negative. Psychiatric/Behavioral: Negative. ACTIVE PROBLEM LIST Essential Hypertension Other Hyperlipidemia Type 2 Diabetes Mellitus Without Complication (Hcc) Gerd (Gastroesophageal Reflux Disease) Esophagitis, Unspecified Symptomatic Menopausal Or Female Climacteric States Multinodular Thyroid Current Outpatient Prescriptions: traZODone (DESYREL) 50 mg tablet Take 1 tablet by mouth daily at bedtime. dulaglutide (TRULICITY) 1.5 mg/0.5 mL pnij Inject 1.5 mg subcutaneously once each week. insulin glargine (BASAGLAR KWIKPEN) 100 unit/mL (3 mL) inpn Inject 30 Units subcutaneously every morning. lisinopril-hydrochlorothiazide (PRINZIDE,ZESTORETIC) 20-12.5 mg per tablet Take 1 tablet by mouth once daily. atorvastatin (LIPITOR) 20 mg tablet Take 1 tablet by mouth once daily. Insulin [place], Disposable, (BD ULTRA-FINE MICRO PEN NEEDLE) 32 gauge x 1/4 ndle Use once daily with Lantus metFORMIN ER (GLUCOPHAGE XR) 500 mg 24 hr tablet Take 2 tablets by mouth twice daily with meals. Omeprazole 40 mg capsule TAKE 1 CAPSULE BY MOUTH ONCE DAILY. Blood-Glucose Meter (ACCU-CHEK SANDIE) misc Lancets (SOFTCLIX LANCETS) lancets Test Blood Sugar 2 times per day. Dx: 250.00 cyclobenzaprine (FLEXERIL) 10 mg tablet Take 1 tablet by mouth twice daily as needed for Muscle Spasm. (Patient not taking: Reported on 01/25/2018 ) No current facility-administered medications for this visit. Objective BP 116/72 (BP Site: Left Arm, BP Position: Sitting, BP Cuff Size: Regular Adult) Pulse 68 Temp (!) 35.8 ?C (96.5 ?F) (Left Tympanic) Resp 18 Wt 70.8 kg (156 lb) BMI 27.63 kg/m? Physical Exam Constitutional: She appears well-developed and well-nourished. HENT: Head: Normocephalic. Neck: Neck supple. No thyromegaly present. Cardiovascular: S1 normal and S2 normal. Exam reveals no gallop. No murmur heard. Pulmonary/Chest: Breath sounds normal. She has no wheezes. She has no rales. Abdominal: Soft. There is no tenderness. Musculoskeletal: Normal range of motion. She exhibits no edema, tenderness or deformity. Lymphadenopathy: She has no cervical adenopathy. Neurological: She is alert. Coordination normal. Psychiatric: She has a normal mood and affect. Her behavior is normal. Assessment and Plan 1. Type 2 diabetes mellitus without complication, with long- term current use of insulin (HCC) - ICD9: 250.00, V58.67, ICD10: E11.9, Z79.4 (primary diagnosis) improved control - Continue current medications - HEMOGLOBIN A1C (POC) - BASIC METABOLIC PNL - HGB A1C - ALBUMIN/CREAT RATIO RND UR 2. Depressive disorder - ICD9: 311, ICD10: F32.9 Stable. Refilled for one year. - TRAZODONE 50 MG TABLET 3. Essential hypertension - ICD9: 401.9, ICD10: I10 - good control - Continue current medication(s) 4. Screening for tuberculosis - ICD9: V74.1, ICD10: Z11.1 Two step needed. - PPD (TB INTRADERMAL 05052) B/O 5. School physical exam - ICD9: V70.5, ICD10: Z02.0 She will hold on to her form, and leave the form for completion after her 2nd TB test. - PPD (TB INTRADERMAL 49385) B/O MD Sherly Navarrete LPN 01/26/2018 10:16 AM Signed This note was created using NoteWriter. Subjective Stefanie Wayne is a 57 year old female. Review of Systems Objective BP 116/72 (BP Site: Left Arm, BP Position: Sitting, BP Cuff Size: Regular Adult) Pulse 68 Temp (!) 35.8 ?C (96.5 ?F) (Left Tympanic) Resp 18 Wt 70.8 kg (156 lb) BMI 27.63 kg/m? Physical Exam Assessment and Plan Referring Provider: ZACHARY HALL [[id number]] Allergies As of Date: 01/25/2018 Noted Allergy Reaction SULFA (SULFONAMIDE ANTIBIOTICS) 07/02/2006 7 - Swelling 9 - Itching SEASONAL ALLERGIES 01/25/2018 5 - Intolerance ZOCOR (SIMVASTATIN) 12/02/2005 7 - Swelling Date Reviewed: 01/25/2018 Reviewed by: Sherly Cummins LPN - Fully Assessed Reason for Visit: F/U 3 Month [443] Primary Visit Diagnosis:Type 2 diabetes mellitus without complication, with long-term current use of insulin (HCC) [E11.9, Z79.4] Other Visit Diagnoses:Depressive disorder [F32.9] Essential hypertension [I10] Screening for tuberculosis [Z11.1] School physical exam [Z02.0] Order(s):traZODone (DESYREL) 50 mg tabletTake 1 tablet by mouth daily at bedtime.Disp: 90 tabletRfl: 3 dulaglutide (TRULICITY) 1.5 mg/0.5 mL pnijInject 1.5 mg subcutaneously once each week.Disp: 4 PenRfl: 11 PPD (TB INTRADERMAL 56809) B/O [0625838] Order #: [id number] HEMOGLOBIN A1C (POC) [3149783] Order #: [id number]. #:[id number] BASIC METABOLIC PNL [SQBMP] Order #: [id number] FUTURE HGB A1C [EEOSA6F] Order #: [id number] FUTURE ALBUMIN/CREAT RATIO RND UR [SQUACR] Order #: [id number] FUTURE Prescriptions as of 01/25/2018 Sig: TRAZODONE 50 MG TABLET Take 1 tablet by mouth daily * DULAGLUTIDE 1.5 MG/0.5 ML SUB* Inject 1.5 mg subcutaneously * INSULIN GLARGINE (U-100) 100 * Inject 30 Units subcutaneousl* LISINOPRIL 20 MG-HYDROCHLOROT* Take 1 tablet by mouth once d* ATORVASTATIN 20 MG TABLET Take 1 tablet by mouth once d* PEN NEEDLE, DIABETIC 32 GAUGE* Use once daily with Lantus METFORMIN ER 500 MG TABLET,EX* Take 2 tablets by mouth twice* OMEPRAZOLE 40 MG CAPSULE,DEEJAY* TAKE 1 CAPSULE BY MOUTH ONCE * BLOOD-GLUCOSE METER LANCETS Test Blood Sugar 2 times per * CYCLOBENZAPRINE 10 MG TABLET Take 1 tablet by mouth twice * Patient not taking: Reported on 01/25/2018 Problem List As Of Date 01/25/2018 Noted Resolved Essential hypertension [I10] INVALID FOR* Other hyperlipidemia [E78.4] INVALID FOR* Type 2 diabetes mellitus without complication (*INVALID FOR* More... Genital warts [A63.0] INVALID FOR*03/27/2012 Dermatofibroma of lower extremity [D23.70] INVALID FOR*03/27/2012 Reticular Varicose Vein: R leg prox outer mid a*INVALID FOR*03/27/2012 Telangiectasia associated with the Reticular Ve*INVALID FOR*03/27/2012 Epidermal Cyst: L mid lower cheek jawline area *INVALID FOR*03/27/2012 Pilar Cyst: R side scalp [L72.11] INVALID FOR*03/27/2012 GERD (gastroesophageal reflux disease) [K21.9] INVALID FOR* Esophagitis, unspecified [K20.9] INVALID FOR* Symptomatic menopausal or female climacteric st*INVALID FOR* Multinodular thyroid [E04.2] INVALID FOR* Prescriptions ordered this encounter Disp Refills Start End TRAZODONE 50 MG TABLET 90 t* 3 01/25/2018 04/25/2018 Route: ORAL Sig: Take 1 tablet by mouth daily at bedtime. DULAGLUTIDE 1.5 MG/0.5 ML SUBCUTANEO* 4 Pen 11 01/25/2018 Route: SUBCUTANEOUS Sig: Inject 1.5 mg subcutaneously once each week. Medications Discontinued During This Encounter ibuprofen (MOTRIN) 800 mg tablet 30 t* 0 08/21/2017 01/25/2018 Route: ORAL Sig: Take 1 tablet by mouth every 8 hours as needed for Pain. Take with food. Disc: Reason for discontinue is not on file. traZODone (DESYREL) 50 mg tablet 90 t* 0 11/03/2017 01/25/2018 Route: ORAL Sig: Take 1 tablet by mouth daily at bedtime. Disc: Reason for discontinue is not on file. dulaglutide (TRULICITY) 1.5 mg/0.5 m* 6 Pen 0 01/18/2018 01/25/2018 Route: SUBCUTANEOUS Sig: Inject 1.5 mg subcutaneously once each week. Disc: Reason for discontinue is not on file. Disposition: Return in about 5 months (around 06/27/2018). Follow-up and Disposition History Recorded Encounter Status:Closed by ZACHARY HALL MD on 01/26/18 PROGRESS Observed: 11/03/2017 Status: COMPLETED Source: [place] 10:00 AM [facility] [place] REPOSITORY [facility] ID: [id number] Author: Дмитрий Castillo (Pharmacist) Service: (none) Author Type: Pharmacist Type: Progress Notes Filed: 11/03/2017 10:29 AM Note Text: Patient consents to pharmacy collaborative practice agreement. REASON FOR CONSULT: DM GOALS: A1c < 7% CONSULTING PROVIDER: Dr. Hall Date of Consult: 05/2017 Stefanie Wayne is a 57 year old female was last seen in [facility] by PCP, Dr. Zachary Hall MD on 08/21/17. Patient is presenting today for f/u pharmacotherapy management appointment for DM. At last PharmD visit on 09/02 dulaglutide was started and insulin glargine was increased from 26 to 30 units. INTERIM HISTORY: Reports feeling well Feeling full after small portions of food Ready to start the increased dose of dulaglutide today Brother 53yo recent cardiac bypass surgery, she'll be helping to take care of him when he goes home from hospital Current DM Medications: Metformin ER 1,000mg BID Dulaglutide 0.75mg every Wednesday Insulin glargine 30 units QAM Current HTN Medications: Lisinopril/HCTZ 20-12.5mg once daily Preventative Medications: ? On PAYTON/ARB: Yes ? On Statin: Yes ? On ASA: No ROS: ? Patient denies CP, SOB, MILLER, blurred vision, dizziness or lightheadedness ? Patient denies symptoms of hypoglycemia (sweating, anxiety, palpitations, hunger, and tremor) ? Patient denies symptoms of hyperglycemia (polyuria, polydipsia, polyphagia) ? Patient denies potential medication adverse effects DIET/EXERCISE/SOCIAL Hx: 1-2 meals daily ? Breakfast: light, cereal, toast and fruit, eggs ? Dinner: chicken and salsa, green beans ? Snacks: crackers ? Following Na restrictions: no ? Beverages: water, flavored water, diet pop ? Exercise: walking ? Tobacco: quit 2008 ? Alcohol: occasional ? Illicits: denies MEDICATIONS: ? Pill bottles are not present. ? Adherence: denies missed doses. ? Pharmacy: [facility] ? Rx coverage: [place] ? Affordability: no isues ? Diabetes supplies: Accu Chek ? Organization System: none ACTIVE PROBLEM LIST Essential Hypertension Other Hyperlipidemia Type 2 Diabetes Mellitus Without Complication (Hcc) Gerd (Gastroesophageal Reflux Disease) Esophagitis, Unspecified Symptomatic Menopausal Or Female Climacteric States Multinodular Thyroid PAST MEDICAL HISTORY Diagnosis Date - Acute gastritis 02/2004 - Anxiety state, unspecified - Multinodular thyroid 01/19/2014 - Other affections of shoulder region, not elsewhere classified 12/03/2005 - Other and unspecified hyperlipidemia 11/26/2005 - Pain in joint, shoulder region 08/26/2007 - RBBB 01/05/2003 - Right hip pain 2012 ARTHROSCOPY HIP W/ DEBRIDEMENT/SHAVING ARTICULAR CARTILAGE, ABRASION ARTHROPLASTY, AND/OR RESECTION LABRUM Right - Type II or unspecified type diabetes mellitus without mention of complication, not stated as uncontrolled 11/26/2005 - Unspecified essential hypertension 11/26/2005 ALLERGIES Allergen Reactions - Sulfa (Sulfonamide * Swelling, Itching - Zocor [Simvastatin] Swelling Current Outpatient Prescriptions: dulaglutide (TRULICITY) 1.5 mg/0.5 mL pnij Inject 1.5 mg subcutaneously once each week. insulin glargine (BASAGLAR KWIKPEN) 100 unit/mL (3 mL) inpn Inject 30 Units subcutaneously every morning. ibuprofen (MOTRIN) 800 mg tablet Take 1 tablet by mouth every 8 hours as needed for Pain. Take with food. cyclobenzaprine (FLEXERIL) 10 mg tablet Take 1 tablet by mouth twice daily as needed for Muscle Spasm. lisinopril-hydrochlorothiazide (PRINZIDE,ZESTORETIC) 20-12.5 mg per tablet Take 1 tablet by mouth once daily. atorvastatin (LIPITOR) 20 mg tablet Take 1 tablet by mouth once daily. Insulin Orovada, Disposable, (BD ULTRA-FINE MICRO PEN NEEDLE) 32 gauge x 1/4 ndle Use once daily with Lantus metFORMIN ER (GLUCOPHAGE XR) 500 mg 24 hr tablet Take 2 tablets by mouth twice daily with meals. traZODone (DESYREL) 50 mg tablet Take 1 tablet by mouth daily at bedtime. Omeprazole 40 mg capsule TAKE 1 CAPSULE BY MOUTH ONCE DAILY. Blood-Glucose Meter (ACCU-CHEK SANDIE) misc Lancets (SOFTCLIX LANCETS) lancets Test Blood Sugar 2 times per day. Dx: 250.00 No current facility-administered medications for this visit. Rx meds not listed in EPIC: none OTCs: none Herbals: none GLYCEMIC CONTROL: ? Glucometer present at visit: Yes ? SMBG?s: Date Fasting AM 2 hr PP Before Lunch 2 hr PP Before Dinner 2 hr PP Bedtime 11/03 120 11/02 163 10/25 163 10/24 94 10/22 131 10/19 174 10/14 143 10/13 180 10/10 163 10/09 127 8 233 2 193 ? Hypoglycemia: no VITALS: BP 133/72 Pulse 66 Last 3 Encounter BP Readings: Date: BP: 09/02/2017 122/72 08/21/2017 118/74 08/02/2017 140/71 Wt: 73.4 kg (161 lb 12.8 oz) BMI: 28.66 kg/(m2) LABS Lab Results Component Value Date HBA1C 13.3 08/02/2017 HBA1C 12.7 04/23/2017 HBA1C 8.2 12/25/2016 CMP: Glucose 393 04/29/2017 BUN 9 04/29/2017 Creatinine 0.70 04/29/2017 Sodium 138 04/29/2017 Potassium 4.5 04/29/2017 Chloride 94 04/29/2017 CO2 24 04/29/2017 Protein, Total 7.8 04/29/2017 Albumin 4.7 04/29/2017 Calcium 9.7 04/29/2017 Alkaline Phosphatase 130 04/29/2017 Bilirubin, Total 0.3 04/29/2017 AST 26 04/29/2017 ALT 20 04/29/2017 Estimated Creatinine Clearance: 87.2 mL/min (based on Cr of 0.7). Last Lipid Panel Lab Results Component Value Date CHOL 284 06/25/2017 Lab Results Component Value Date HDL 52 06/25/2017 Lab Results Component Value Date LDL 178 06/25/2017 Lab Results Component Value Date TG 528 06/25/2017 Albumin/Creat Ratio (mg/g) Date Value 06/25/2017 22 PHARMACOTHERAPY ASSESSMENT/PLAN: 1. Type 2 diabetes mellitus without complication, with long- term current use of insulin (HCC) - ICD9: 250.00, V58.67, ICD10: E11.9, Z79.4 (primary diagnosis) A1c goal < 7%, patient is not at goal (13.3% on 08/02/17). But SMBGs much improved in last month, since increase in basal insulin and start of GLP-1 agonist. FBGs mostly at goal and PPBG data limited. Patient compliant with and tolerating current regimen. Appropriate to increase GLP- 1 to target dose at this time. Renal fxn and LFTs WNL and appropriate for continued therapy ? INCREASE dulaglutide to 1.5mg every Wednesday ? CONTINUE insulin glargine 30 units QAM and metformin ER 1,000mg BID ? Instructed patient to continue checking FBGs and add PPBGs 2. Essential hypertension - ICD9: 401.9, ICD10: I10 BP goal < 130/80, pt is at goal after increase in lisinopril. Continue current therapy. Pulse, renal fxn and K+ WNL. ? CONTINUE lisinopril/HCTZ 20-12.5mg once daily 3. Other hyperlipidemia - ICD9: 272.4, ICD10: E78.4 Pt is on appropriate intensity statin therapy (moderate intensity d/t diagnosis of DM and ASCVD risk score 3.9%). LFTs and renal fxn ? CONTINUE atorvastatin 20mg QAM Patient is scheduled to see PCP 01/25/18 Patient to return to clinic for PharmD f/u on 12/13. Patient verbalized understanding of instructions. Дмитрий Castillo, Heriberto, BCPS CNOV Observed: 11/03/2017 Status: COMPLETED Source: [place] 10:00 AM [facility] REPOSIT[facility] Office Visit (PHMEWO) STEFANIE WAYNE ([id number]) 1960 F Date Time Provider Department 11/03/17 10:00 AM JONATHAN (PHARMACIST), ДМИТРИЙ [facility]MEWO During your visit today, we recorded the following information about you: Pulse Blood pressure 66/minute 133/72 ДМИТРИЙ CASTILLO, PHARMACIST 11/03/2017 10:29 AM Signed Patient consents to pharmacy collaborative practice agreement. REASON FOR CONSULT: DM GOALS: A1c ANDlt; 7% CONSULTING PROVIDER: Dr. Hall Date of Consult: 05/2017 Stefanie Wayne is a 57 year old female was last seen in [facility] by PCP, Dr. Zachary Hall MD on 08/21/17. Patient is presenting today for f/u pharmacotherapy management appointment for DM. At last PharmD visit on 09/02 dulaglutide was started and insulin glargine was increased from 26 to 30 units. INTERIM HISTORY: Reports feeling well Feeling full after small portions of food Ready to start the increased dose of dulaglutide today Brother 53yo recent cardiac bypass surgery, she'll be helping to take care of him when he goes home from hospital Current DM Medications: Metformin ER 1,000mg BID Dulaglutide 0.75mg every Wednesday Insulin glargine 30 units QAM Current HTN Medications: Lisinopril/HCTZ 20-12.5mg once daily Preventative Medications: ? On PAYTON/ARB: Yes ? On Statin: Yes ? On ASA: No ROS: ? Patient denies CP, SOB, MILLER, blurred vision, dizziness or lightheadedness ? Patient denies symptoms of hypoglycemia (sweating, anxiety, palpitations, hunger, and tremor) ? Patient denies symptoms of hyperglycemia (polyuria, polydipsia, polyphagia) ? Patient denies potential medication adverse effects DIET/EXERCISE/SOCIAL Hx: 1-2 meals daily ? Breakfast: light, cereal, toast and fruit, eggs ? Dinner: chicken and salsa, green beans ? Snacks: crackers ? Following Na restrictions: no ? Beverages: water, flavored water, diet pop ? Exercise: walking ? Tobacco: quit 2008 ? Alcohol: occasional ? Illicits: denies MEDICATIONS: ? Pill bottles are not present. ? Adherence: denies missed doses. ? Pharmacy: [facility] ? Rx coverage: [facility] [place] ? Affordability: no isues ? Diabetes supplies: Accu Chek ? Organization System: none ACTIVE PROBLEM LIST Essential Hypertension Other Hyperlipidemia Type 2 Diabetes Mellitus Without Complication (Hcc) Gerd (Gastroesophageal Reflux Disease) Esophagitis, Unspecified Symptomatic Menopausal Or Female Climacteric States Multinodular Thyroid PAST MEDICAL HISTORY Diagnosis Date - Acute gastritis 02/2004 - Anxiety state, unspecified - Multinodular thyroid 01/19/2014 - Other affections of shoulder region, not elsewhere classified 12/03/2005 - Other and unspecified hyperlipidemia 11/26/2005 - Pain in joint, shoulder region 08/26/2007 - RBBB 01/05/2003 - Right hip pain 2012 ARTHROSCOPY HIP W/ DEBRIDEMENT/SHAVING ARTICULAR CARTILAGE, ABRASION ARTHROPLASTY, AND/OR RESECTION LABRUM Right - Type II or unspecified type diabetes mellitus without mention of complication, not stated as uncontrolled 11/26/2005 - Unspecified essential hypertension 11/26/2005 ALLERGIES Allergen Reactions - Sulfa (Sulfonamide * Swelling, Itching - Zocor [Simvastatin] Swelling Current Outpatient Prescriptions: dulaglutide (TRULICITY) 1.5 mg/0.5 mL pnij Inject 1.5 mg subcutaneously once each week. insulin glargine (BASAGLAR KWIKPEN) 100 unit/mL (3 mL) inpn Inject 30 Units subcutaneously every morning. ibuprofen (MOTRIN) 800 mg tablet Take 1 tablet by mouth every 8 hours as needed for Pain. Take with food. cyclobenzaprine (FLEXERIL) 10 mg tablet Take 1 tablet by mouth twice daily as needed for Muscle Spasm. lisinopril-hydrochlorothiazide (PRINZIDE,ZESTORETIC) 20-12.5 mg per tablet Take 1 tablet by mouth once daily. atorvastatin (LIPITOR) 20 mg tablet Take 1 tablet by mouth once daily. Insulin [place], Disposable, (BD ULTRA-FINE MICRO PEN NEEDLE) 32 gauge x 1/4ANDquot; ndle Use once daily with Lantus metFORMIN ER (GLUCOPHAGE XR) 500 mg 24 hr tablet Take 2 tablets by mouth twice daily with meals. traZODone (DESYREL) 50 mg tablet Take 1 tablet by mouth daily at bedtime. Omeprazole 40 mg capsule TAKE 1 CAPSULE BY MOUTH ONCE DAILY. Blood-Glucose Meter (ACCU-CHEK SANDIE) misc Lancets (SOFTCLIX LANCETS) lancets Test Blood Sugar 2 times per day. Dx: 250.00 No current facility-administered medications for this visit. Rx meds not listed in EPIC: none OTCs: none Herbals: none GLYCEMIC CONTROL: ? Glucometer present at visit: Yes ? SMBG?s: Date Fasting AM 2 hr PP Before Lunch 2 hr PP Before Dinner 2 hr PP Bedtime 11/03 120 / 163 10/25 163 10/24 94 10/22 131 10/19 174 15 143 14 180 / 163 /10 127 2/8 233 2/2 193 ? Hypoglycemia: no VITALS: BP 133/72 Pulse 66 Last 3 Encounter BP Readings: Date: BP: 09/02/2017 122/72 08/21/2017 118/74 08/02/2017 140/71 Wt: 73.4 kg (161 lb 12.8 oz) BMI: 28.66 kg/(m2) LABS Lab Results Component Value Date HBA1C 13.3 08/02/2017 HBA1C 12.7 04/23/2017 HBA1C 8.2 12/25/2016 CMP: Glucose 393 04/29/2017 BUN 9 04/29/2017 Creatinine 0.70 04/29/2017 Sodium 138 04/29/2017 Potassium 4.5 04/29/2017 Chloride 94 04/29/2017 CO2 24 04/29/2017 Protein, Total 7.8 04/29/2017 Albumin 4.7 04/29/2017 Calcium 9.7 04/29/2017 Alkaline Phosphatase 130 04/29/2017 Bilirubin, Total 0.3 04/29/2017 AST 26 04/29/2017 ALT 20 04/29/2017 Estimated Creatinine Clearance: 87.2 mL/min (based on Cr of 0.7). Last Lipid Panel Lab Results Component Value Date CHOL 284 06/25/2017 Lab Results Component Value Date HDL 52 06/25/2017 Lab Results Component Value Date LDL 178 06/25/2017 Lab Results Component Value Date TG 528 06/25/2017 Albumin/Creat Ratio (mg/g) Date Value 06/25/2017 22 PHARMACOTHERAPY ASSESSMENT/PLAN: 1. Type 2 diabetes mellitus without complication, with long- term current use of insulin ([facility]) - ICD9: 250.00, V58.67, ICD10: E11.9, Z79.4 (primary diagnosis) A1c goal ANDlt; 7%, patient is not at goal (13.3% on 08/02/17). But SMBGs much improved in last month, since increase in basal insulin and start of GLP-1 agonist. FBGs mostly at goal and PPBG data limited. Patient compliant with and tolerating current regimen. Appropriate to increase GLP-1 to target dose at this time. Renal fxn and LFTs WNL and appropriate for continued therapy ? INCREASE dulaglutide to 1.5mg every Wednesday ? CONTINUE insulin glargine 30 units QAM and metformin ER 1,000mg BID ? Instructed patient to continue checking FBGs and add PPBGs 2. Essential hypertension - ICD9: 401.9, ICD10: I10 BP goal ANDlt; 130/80, pt is at goal after increase in lisinopril. Continue current therapy. Pulse, renal fxn and K+ WNL. ? CONTINUE lisinopril/HCTZ 20-12.5mg once daily 3. Other hyperlipidemia - ICD9: 272.4, ICD10: E78.4 Pt is on appropriate intensity statin therapy (moderate intensity d/t diagnosis of DM and ASCVD risk score 3.9%). LFTs and renal fxn ? CONTINUE atorvastatin 20mg QAM Patient is scheduled to see PCP 01/25/18 Patient to return to clinic for PharmD f/u on 12/13. Patient verbalized understanding of instructions. Дмитрий Castillo, PharmD, [facility] ДМИТРИЙ CASTILLO PHARMACIST 11/03/2017 10:19 AM Signed Morning sugars should be 80-130 After meals (2 hours) 180s Referring Provider: SELF [[id number]] Allergies As of Date: 11/03/2017 Noted Allergy Reaction SULFA (SULFONAMIDE ANTIBIOTICS) 07/02/2006 7 - Swelling 9 - Itching ZOCOR (SIMVASTATIN) 12/02/2005 7 - Swelling Date Reviewed: 09/02/2017 Reviewed by: Sherly Cummins LPN - Fully Assessed Reason for Visit: Allied Health Visit [5] Cmt: DM follow-up Primary Visit Diagnosis:Type 2 diabetes mellitus without complication, with long-term current use of insulin (HCC) [E11.9, Z79.4] Other Visit Diagnoses:Essential hypertension [I10] Other hyperlipidemia [E78.4] Prescriptions as of 11/03/2017 Sig: DULAGLUTIDE 1.5 MG/0.5 ML SUB* Inject 1.5 mg subcutaneously * INSULIN GLARGINE (U-100) 100 * Inject 30 Units subcutaneousl* LISINOPRIL 20 MG-HYDROCHLOROT* Take 1 tablet by mouth once d* ATORVASTATIN 20 MG TABLET Take 1 tablet by mouth once d* METFORMIN ER 500 MG TABLET,EX* Take 2 tablets by mouth twice* IBUPROFEN 800 MG TABLET Take 1 tablet by mouth every * CYCLOBENZAPRINE 10 MG TABLET Take 1 tablet by mouth twice * PEN NEEDLE, DIABETIC 32 GAUGE* Use once daily with Lantus TRAZODONE 50 MG TABLET Take 1 tablet by mouth daily * OMEPRAZOLE 40 MG CAPSULE,DEEJAY* TAKE 1 CAPSULE BY MOUTH ONCE * BLOOD-GLUCOSE METER LANCETS Test Blood Sugar 2 times per * Problem List As Of Date 11/03/2017 Noted Resolved Essential hypertension [I10] INVALID FOR* Other hyperlipidemia [E78.4] INVALID FOR* Type 2 diabetes mellitus without complication (*INVALID FOR* More... Genital warts [A63.0] INVALID FOR*03/27/2012 Dermatofibroma of lower extremity [D23.70] INVALID FOR*03/27/2012 Reticular Varicose Vein: R leg prox outer mid a*INVALID FOR*03/27/2012 Telangiectasia associated with the Reticular Ve*INVALID FOR*03/27/2012 Epidermal Cyst: L mid lower cheek jawline area *INVALID FOR*03/27/2012 Pilar Cyst: R side scalp [L72.11] INVALID FOR*03/27/2012 GERD (gastroesophageal reflux disease) [K21.9] INVALID FOR* Esophagitis, unspecified [K20.9] INVALID FOR* Symptomatic menopausal or female climacteric st*INVALID FOR* Multinodular thyroid [E04.2] INVALID FOR* Other instructions from your clinician: Morning sugars should be 80-130 After meals (2 hours) 180s Encounter Status:Closed by JONATHAN (PHARMACIST)ДМИТРИЙ on 11/03/17 BASIC METABOLIC PANL Collected: 11/03/2017 Status: F Source: [place] 9:50 AM [facility] REPOSITORY TYPE CODE TESTS RESULT OUT OF REFERENCE UNITS RANGE LAB GLU 74-99 mg/dL High Glucose 145 Result Comment: The [place] Diabetes [employer] (ADA) provides guidance for cutoff values for fasting glucose and random glucose. The ADA defines fasting as no caloric intake for at least 8 hours. Fas ting plasma glucose results between 100 to 125 mg/dL indicate increased risk for diabetes (prediabetes). Fasting plasma glucose results greater than or equal to 126 mg/dL meet the criteria for diagnosis of diabetes. In the absence of unequivocal hyperglycemia, results should be confirmed by repeat testing. In a patient with classic symptoms of hyperglycemia or hyperglycemic crisis, random plasma glucose results greater than or equal to 200 mg/dL meet the criteria for diagnosis of diabetes. Reference: Standards of Medical Care in Diabetes 2016, [place] [employer]. Diabetes Care. 2016.39(Suppl 1). LAB BUN 7-21 mg/dL BUN 11 LAB CRET 0.58-0.96 mg/dL Creatinine 0.75 LAB NA 136-144 mmol/L Sodium 141 LAB K 3.7-5.1 mmol/L Potassium 3.9 LAB CL 97-105 mmol/L Chloride 99 LAB CO2 22-30 mmol/L CO2 28 LAB AGAP 9-18 mmol/L Anion Gap 14 LAB CA 8.5-10.2 mg/dL Calcium, Total 9.3 LAB GFRAA eGFR- Amer. >60 LAB GFRNAA . eGFR-All Other Races >60 Result Comment: eGFR (Estimated GFR) Units of measure: mL/min/1.73 meters squared eGFR is derived from the reexpressed MDRD Study equation using the following parameters: serum creatinine, age, gender and race. The creatinine assay has been calibrated to be traceable to IDMS. An eGFR <60 mL/min/1.73m2 for >3 months is consistent with chronic kidney disease. Refer to KDOQI guidelines for clinical interpretation. In patients with unstable renal function, e.g. those with acute kidney injury, the eGFR may not accurately reflect actual GFR. Performed By: #### BMP, LIPB, HBA1C #### [facility] [address] [place], [place] [address] LIPID PANEL, BASIC Collected: 11/03/2017 Status: F Source: [place] 9:50 AM [facility] REPOSITORY TYPE CODE TESTS RESULT OUT OF REFERENCE UNITS RANGE LAB CHOL <200 mg/dL Cholesterol 174 Result Comment: <200 mg/dL, Desirable 200-239 mg/dL, Borderline high >239 mg/dL, High LAB TRIGLY <150 mg/dL Triglyceride High 226 Result Comment: <150 mg/dL, Normal 150-199 mg/dL, Borderline high 200-499 mg/dL, High >499 mg/dL, Very high LAB HDL >39 mg/dL HDL-Cholesterol 48 Result Comment: 40-59 mg/dL, Acceptable >59 mg/dL, High: Negative risk factor for coronary heart disease <40 mg/dL, Low: Positive risk factor for coronary heart disease LAB LDL <100 mg/dL LDL-Cholesterol 81 Result Comment: <100 mg/dL, Optimal 100-129 mg/dL, Near optimal/above optimal 130-159 mg/dL, Borderline high 160-189 mg/dL, High >189 mg/dL, Very high Secondary prevention optimal LDL Cholesterol levels are recommended to be < 70 mg/dL LAB NONHDL <130 mg/dL Non HDL Cholesterol 126 Result Comment: <130 mg/dL, Optimal 130-159 mg/dL, Near optimal/above optimal 160-189 mg/dL, Borderline high 190-219 mg/dL, High >219 mg/dL, Very high Secondary prevention optimal non HDL Cholesterol levels are recommended to be < 100 mg/dL LAB FT hrs Fasting Time 1 LAB VLDL <30 mg/dL High VLDL Cholesterol 45 LAB TCHDL <5.10 TC:HDL Ratio 3.63 LAB LDLHDL <2.54 LDL:HDL Ratio 1.69 Result Comment: Reference: 1. National Cholesterol Education Program ATP III Guideline At-A-Glance Quick Desk Reference: National Heart, Lung, and Blood [place]. National Institutes of Health. 2001: NIH Publication No. 01-3305. 2. An International Atherosclerosis Society position paper: global recommendations for the management of dyslipidemia: executive summary, Atherosclerosis. 2014: 232(2):410-413. Performed By: #### BMP, LIPB, HBA1C #### [facility] [address] [place] [address] HEMOGLOBIN A1C Collected: 11/03/2017 Status: F Source: [place] 9:50 AM [facility] REPOSITORY TYPE CODE TESTS RESULT OUT OF REFERENCE UNITS RANGE LAB HGBA1C 4.3-5.6 % High Hemoglobin A1c 8.5 LAB HBA0 mg/dL Est. Average Glucose 197 Result Comment: eAG: (Estimated average glucose) is a calculated value from HgbA1c and is customer service representative teacher of the average blood glucose level in the last 2-3 month period. Performed By: #### BMP, LIPB, HBA1C #### [facility] [address] [place] [id number] CNCO Observed: 10/21/2017 Status: COMPLETED Source: [place] 12:00 AM [facility] REPOSITORY Letter Text Stefanie Wayne [address] [place] [address] 10/21/2017 [facility] #: [id number] Dear Wayne, Due to a change in the provider's schedule it has been necessary to reschedule your Appointment. Your original appointment was scheduled for December 14, 2017 at 2:20 PM with Zachary Hall M.D. Your new appointment is now scheduled on January 25, 2018 at 2:40 PM with Zachary Hall M.D. If this new appointment is not convenient for you, please contact our office at [phone]. Thank you for choosing the [facility] as your Healthcare Provider . Sincerely, Internal Medicine Appointment Office CNPKwabena Observed: 10/04/2017 Status: COMPLETED Source: [place] 12:00 AM [facility] REPOSITORY Telephone (PHMEWO) STEFANIE WAYNE ([id number]) 1960 F Date Time Provider Department 10/04/17 JONATHAN (PHARMACIST)ДМИТРИЙ During your visit today, we recorded the following information about you: LAKHWINDER OHARA 10/15/2017 1:39 PM Addendum Patient left message to reschedule today's appointment d/t illness. Reports much improvement in SMBGs since starting Trulicity. Is feeling some indigestion because of the medicine and is asking to remain on the lower dose for another month before titrating to target dose. PharmD returned call and LVM with instructions to return PharmD call. PCP f/u 12/14/17 Дмитрий Castillo PharmD, BCPS LAKHWINDER OHARA 10/19/2017 10:12 AM Signed Second attempt to reschedule patient. LVM with instructions to return PharmD call. Will try again at a later time. Дмитрий Castillo PharmD, BCPS LAKHWINDER OHARA 10/20/2017 1:29 PM Signed Patient calling to reschedule. Reports BGs improving. Is tolerating the Trulicity at the 0.75mg dose. At this time, appropriate to increase to target 1.5mg weekly (start on 11/03/17) PharmD f/u 11/03/17. Дмитрий Castillo, PharmParvez, BCPS ДМИТРИЙ CASTILLO, PHARMACIST 10/20/2017 1:29 PM Signed Addended by: JONATHAN (PHARMACIST)ДМИТРИЙ on: 10/20/2017 01:29 PM Modules accepted: Orders Allergies As of Date: 10/04/2017 Noted Allergy Reaction SULFA (SULFONAMIDE ANTIBIOTICS) 07/02/2006 7 - Swelling 9 - Itching ZOCOR (SIMVASTATIN) 12/02/2005 7 - Swelling Date Reviewed: 09/02/2017 Reviewed by: Sherly Cummins LPN - Fully Assessed Reason for Visit: Patient Update [1234] Order(s):dulaglutide (TRULICITY) 1.5 mg/0.5 mL pnijInject 1.5 mg subcutaneously once each week.Disp: 4 PenRfl: 3 Prescriptions as of 10/04/2017 Sig: DULAGLUTIDE 1.5 MG/0.5 ML SUB* Inject 1.5 mg subcutaneously * INSULIN GLARGINE (U-100) 100 * Inject 30 Units subcutaneousl* IBUPROFEN 800 MG TABLET Take 1 tablet by mouth every * CYCLOBENZAPRINE 10 MG TABLET Take 1 tablet by mouth twice * LISINOPRIL 20 MG-HYDROCHLOROT* Take 1 tablet by mouth once d* ATORVASTATIN 20 MG TABLET Take 1 tablet by mouth once d* PEN NEEDLE, DIABETIC 32 GAUGE* Use once daily with Lantus METFORMIN ER 500 MG TABLET,EX* Take 2 tablets by mouth twice* TRAZODONE 50 MG TABLET Take 1 tablet by mouth daily * OMEPRAZOLE 40 MG CAPSULE,DEEJAY* TAKE 1 CAPSULE BY MOUTH ONCE * BLOOD-GLUCOSE METER LANCETS Test Blood Sugar 2 times per * Problem List As Of Date 10/04/2017 Noted Resolved Essential hypertension [I10] INVALID FOR* Other hyperlipidemia [E78.4] INVALID FOR* Type 2 diabetes mellitus without complication (*INVALID FOR* More... Genital warts [A63.0] INVALID FOR*03/27/2012 Dermatofibroma of lower extremity [D23.70] INVALID FOR*03/27/2012 Reticular Varicose Vein: R leg prox outer mid a*INVALID FOR*03/27/2012 Telangiectasia associated with the Reticular Ve*INVALID FOR*03/27/2012 Epidermal Cyst: L mid lower cheek jawline area *INVALID FOR*03/27/2012 Pilar Cyst: R side scalp [L72.11] INVALID FOR*03/27/2012 GERD (gastroesophageal reflux disease) [K21.9] INVALID FOR* Esophagitis, unspecified [K20.9] INVALID FOR* Symptomatic menopausal or female climacteric st*INVALID FOR* Multinodular thyroid [E04.2] INVALID FOR* Prescriptions ordered this encounter Disp Refills Start End DULAGLUTIDE 1.5 MG/0.5 ML SUBCUTANEO* 4 Pen 3 10/20/2017 Route: SUBCUTANEOUS Sig: Inject 1.5 mg subcutaneously once each week. Medications Discontinued During This Encounter dulaglutide (TRULICITY) 0.75 mg/0.5 * 2 Pen 0 09/29/2017 10/20/2017 Sig: INJECT 0.75 MG SUBCUTANEOUSLY EVERY WEDNESDAY. Disc: Reason for discontinue is not on file. Follow-up and Disposition History Recorded Encounter Status:Closed by JONATHAN (PHARMACIST)ДМИТРИЙ on 10/15/17 OBSOLETE Observed: 09/29/2017 Status: COMPLETED Source: [place] 12:00 AM [facility] REPOSIT[facility] Refill (PHMEWO) STEFANIE WAYNE ([id number]) 1960 F Date Time Provider Department 09/29/17 ZACHARY HALL PHMEWO During your visit today, we recorded the following information about you: Tiara Canales Cma 09/29/2017 9:01 AM Signed Patient has been identified by name and date of : Yes Patient phones for refill(s): Pending Prescriptions Disp Refills DULAGLUTIDE 0.75 MG/0.5 ML SUBCUTANEOUS PEN INJECTOR 2 Pen 0 Sig: INJECT 0.75 MG SUBCUTANEOUSLY EVERY WEDNESDAY. JEAN: No Date of last office visit in primary care: 09/02/17 Please advise. Thank you. Tiara Canales Assistant Real Estate Manager Priyanka Chu BOILER SERVICE TECHNICIAN 09/29/2017 2:44 PM Signed The following approved medication requests have been transmitted electronically. Signed Prescriptions Disp Refills dulaglutide (TRULICITY) 0.75 mg/0.5 mL pnij 2 Pen 0 Sig: INJECT 0.75 MG SUBCUTANEOUSLY EVERY WEDNESDAY. JEAN: No Authorizing Provider: PRIYANKA CHU (DREW) Priyanka Chu CNP Allergies As of Date: 09/29/2017 Noted Allergy Reaction SULFA (SULFONAMIDE ANTIBIOTICS) 07/02/2006 7 - Swelling 9 - Itching ZOCOR (SIMVASTATIN) 12/02/2005 7 - Swelling Date Reviewed: 09/02/2017 Reviewed by: Sherly Cummins LPN - Fully Assessed Reason for Visit: Refill Request [94] Order(s):dulaglutide (TRULICITY) 0.75 mg/0.5 mL pnijINJECT 0.75 MG SUBCUTANEOUSLY EVERY WEDNESDAY.Disp: 2 PenRfl: 0 Prescriptions as of 09/29/2017 Sig: DULAGLUTIDE 0.75 MG/0.5 ML PHILLIP* INJECT 0.75 MG SUBCUTANEOUSLY* INSULIN GLARGINE 100 UNIT/ML * Inject 30 Units subcutaneousl* IBUPROFEN 800 MG TABLET Take 1 tablet by mouth every * CYCLOBENZAPRINE 10 MG TABLET Take 1 tablet by mouth twice * LISINOPRIL 20 MG-HYDROCHLOROT* Take 1 tablet by mouth once d* ATORVASTATIN 20 MG TABLET Take 1 tablet by mouth once d* PEN NEEDLE, DIABETIC 32 GAUGE* Use once daily with Lantus METFORMIN ER 500 MG TABLET,EX* Take 2 tablets by mouth twice* TRAZODONE 50 MG TABLET Take 1 tablet by mouth daily * OMEPRAZOLE 40 MG CAPSULE,DEEJAY* TAKE 1 CAPSULE BY MOUTH ONCE * BLOOD-GLUCOSE METER LANCETS Test Blood Sugar 2 times per * Problem List As Of Date 09/29/2017 Noted Resolved Essential hypertension [I10] INVALID FOR* Other hyperlipidemia [E78.4] INVALID FOR* Type 2 diabetes mellitus without complication (*INVALID FOR* More... Genital warts [A63.0] INVALID FOR*03/27/2012 Dermatofibroma of lower extremity [D23.70] INVALID FOR*03/27/2012 Reticular Varicose Vein: R leg prox outer mid a*INVALID FOR*03/27/2012 Telangiectasia associated with the Reticular Ve*INVALID FOR*03/27/2012 Epidermal Cyst: L mid lower cheek jawline area *INVALID FOR*03/27/2012 Pilar Cyst: R side scalp [L72.11] INVALID FOR*03/27/2012 GERD (gastroesophageal reflux disease) [K21.9] INVALID FOR* Esophagitis, unspecified [K20.9] INVALID FOR* Symptomatic menopausal or female climacteric st*INVALID FOR* Multinodular thyroid [E04.2] INVALID FOR* Prescriptions ordered this encounter Disp Refills Start End DULAGLUTIDE 0.75 MG/0.5 ML SUBCUTANE* 2 Pen 0 09/29/2017 Sig: INJECT 0.75 MG SUBCUTANEOUSLY EVERY WEDNESDAY. Medications Discontinued During This Encounter dulaglutide (TRULICITY) 0.75 mg/0.5 * 4 Pen 0 09/05/2017 09/29/2017 Route: SUBCUTANEOUS Sig: Inject 0.75 mg subcutaneously every Wednesday. Disc: Reason for discontinue is not on file. Encounter Status:Closed by PRIYANKA CHU CNP on 09/29/17 ALLERGIES ALLERGIES DATE TYPE / NAME / CODE REACTION SEVERITY SOURCE CODE 01/25/2018 Environ/42 SEASONAL INTOLERANCE [facility] [id number](SN ALLERGIES [place] O[facility]) Repository 07/02/2006 Drug SULFA SWELLING [facility] Class/4195 (SULFONAMIDE [place] [id number](SNOM ANTIBIOTICS) Repository ED CT) 12/02/2005 DRUG SIMVASTATIN SWELLING [facility] INGREDI/41 [place] [id number](SN Repository OMED CT) ENCOUNTERS ENCOUNTERS ADMIT/DISCHARGE ACCOUNT ADMITTING ENCOUNTER LOCATION SOURCE NUMBER CLASS 08/12/2018 [id number] Ambulatory [facility] ing:LABSPEC Repository 08/12/2018/08/15/20 [id number] Ambulatory [address] [place] Repository 08/12/2018/08/12/20 [id number] Ambulatory [address] [place] Repository 08/04/2018/08/09/20 [id number] Ambulatory [address] [place] Repository 07/27/2018/07/27/20 [id number] Ambulatory [address] [place] Repository 07/27/2018/07/27/20 [id number] Ambulatory [address] [place] Repository 07/19/2018/11/21 [id number] Ambulatory [address] Repository 07/19/2018/07/19/20 [id number] Ambulatory [address] Repository 01/27/2018/01/28/20 [id number] Ambulatory [address] Repository 01/25/2018/01/28/20 [id number] Ambulatory [address] Repository 11/03/2017/11/04/19 [id number] Ambulatory [address] Repository 11/03/2017/11/04/19 [id number] Ambulatory [address] Repository PAYERS PAYERS ENCOUNTER GUARANTOR PAYER SUBSCRIBER SOURCE 08/12/2018 STEFANIE GUERRERO Primary TIM LEROY Insurance:[facility] [address]Gep: 330) Number: Repository [id number] HP [id number] Date:[id number] [address] [place] [id number]: 08/12/2018 Secondary BARRY [place] Insurance:SELF PAY [facility] Number: Effective Repository Date:2018-08-12
== END ==
PROVIDERS: Referring Provider Surgery; Visit Provider Surgery
DX: E04.1 Nontoxic single thyroid nodule (principal)
CPT/HCPCS: 88108; 88161; 88305; 88313; 88341; 88342

== ENCOUNTER 2019-09-22 16:00 | Emergency (ER) | payer OTHER, SELFPAY ==
[2019-09-22 16:02] VITALS: BP 165/104; PULSE 83; RESP 17; TEMP 36.7; O2SAT 97; BMI 27.9
[2019-09-22 16:27] LABS: Absolute Lymphocyte Count 2.63 X10^3/uL (0.83-4.51); Absolute Neutrophil Count 6.1 X10^3/uL (2.0-7.7); Basophil# 0.08 X10^3/uL; Basophil% 0.8 % (0-1); Eosinophils% 2.1 % (0-5); Hematocrit 46.6 % (37-47); Hemoglobin 15.8 g/dL (12.0-15.0); Lymphocyte # 2.63 X10^3/ul (4.0); Lymphocyte % 27.1 % (19-41); Mean Corp Hgb Conc 33.9 g/dL (32-36); Mean Corpuscular Hgb 29.5 pg (27.0-32.0); Mean Corpuscular Volume 86.9 fL (81-99); Mean Platelet Vol. 10.3 fl (6.2-12.0); Monocyte# 0.67 X10^3/uL; Monocyte% 6.9 % (0-10); NRBC Flagged by Analyzer 0 % (0-5); Neutrophil # 6.12 X10^3/uL (2.7-7.7); Neutrophil % 62.9 % (47-70); Platelet Count 321 K/mm3 (150-450); RBC Distribution Width CV 11.9 % (11.6-14.6); RBC Distribution Width SD 38.1 fl (35.1-43.9); Red Blood Count 5.36 M/mm3 (4.2-5.4); White Blood Count 9.7 K/mm3 (4.4-11.0)
[2019-09-22 16:37] LABS: Anion Gap 8 (5-15); BUN 9 mg/dL (7-18); BUN/Creat Ratio 10.9 RATIO (10-20); Calcium,Total 9.9 mg/dL (8.5-10.1); Chloride 103 mmol/L (98-107); Creatinine, Serum 0.83 mg/dL (0.55-1.02); EST Glomerular Filtration Rate 76 mL/min (>60); Est Glom Filt Rate - Afr Amer 92 mL/min (>60); Estimated Creatinine Clearance 61.86 ml/min; Glucose 172 mg/dL (74-106); Potassium 3.3 mmol/L (3.5-5.1); Sodium Level 138 mmol/L (136-145)
[2019-09-22 17:09] VITALS: BP 163/83; PULSE 68; RESP 14; O2SAT 94
[2019-09-22] MEDS: Mag Hydrox/Al Hydrox/Simeth 30 ML UDC PO (17:09)
--- NOTE | 2019-09-22 17:09 | ED.DCSUM_ITS ---
History of Present Illness Chief Complaint: Abd Pain Informant: Patient Onset: Month(s) - 1 Narrative: Patient reports intermittent fever since [place]. At that time had sinus congestion and urinary tract infection treated with antibiotics by her PCP. Intermittent mid abdominal pain however persistent over last few days. Symptoms worse with food. States it is loose stools when she eats. No bloody stools no black tarry stools. She is on omeprazole states had endoscopy a year ago that was negative. No urinary symptoms. Denies alcohol history. States similar symptoms when she was put on Tradjenta few months ago however that was stopped and symptoms resolved. No cough. No chest pains. Prior similar symptoms: No Past Medical History - Allergies and Home Meds Allergies/Adverse Reactions: Allergies simvastatin [From Zocor] Allergy (Verified 09/22/19 16:01) Swelling SWELLING AND ITCHING Sulfa (Sulfonamide Antibiotics) Allergy (Verified 09/22/19 16:01) Swelling SWELLING AND ITCHING Primary Care Physician: Zachary Toney MD [Primary Care Provider] - Past Medical History: - - Hypertension, diabetes Review of Systems General: Denies: Chills, Fever, Sweats Eyes: Denies: Visual changes - bilaterally, Diplopia ENT: Denies: Rhinorrhea, Sore throat Cardiovascular: Denies: Chest pain, Palpitations Respiratory: Denies: Dyspnea, Cough, Dyspnea on exertion Gastrointestinal: Reports: Abdominal pain. Denies: Nausea, Vomiting, Diarrhea, Melena, Hematochezia Genitourinary: Denies: Dysuria, Hematuria, Frequency Musculoskeletal: Denies: Back pain, Extremity Pain Skin: Denies: Rash, Wounds Neurological: Denies: Headache, Weakness, Numbness Physical Exam Vital Signs/Narrative: Vital Signs Temp Pulse Resp BP Pulse Ox 09/22/19 16:02 98.1 F 83 17 165/104 H 97 General: Well nourished, Well developed, No Acute Distress Head: Normocephalic, Atraumatic Eyes: Perrl, EOMI ENT: Moist mucous membranes, No rhinorrhea Neck: Supple, Nontender Cardiovascular: Regular rate, Regular rhythm, No murmurs Respiratory: No distress, CTA bilaterally, Chest nontender Abdomen: Soft, Nondistended, Normal bowel sounds, - - Mild epigastric tenderness, negative Levy's or McBurney's tenderness. No guarding or rebound. Back: Nontender, Normal Inspection Extremities: Nontender, No edema Skin: Normal color, No rash Neurological: Alert, Oriented x3, Cranial nerves II-XII grossly intact, Normal Strength, Normal Sensation Psychological: Normal affect, Normal Mood Diagnostic/Tx/Re-eval Abnormal Lab Results 09/22/19 09/22/19 09/22/19 16:10 16:10 16:10 WBC 9.7 RBC 5.36 Hgb 15.8 H Hct 46.6 MCV 86.9 MCH 29.5 MCHC 33.9 RDW Std Deviation 38.1 RDW Coeff of Celine 11.9 Plt Count 321 MPV 10.3 Immature Gran % (Auto) 0.200 Neut % (Auto) 62.9 Lymph % (Auto) 27.1 [place] % (Auto) 6.9 Eos % (Auto) 2.1 Baso % (Auto) 0.8 Absolute Neuts (auto) 6.1 Absolute Lymphs (auto) 2.63 Nucleated RBC % 0 Sodium 138 Potassium 3.3 L Chloride 103 Carbon Dioxide 27.0 Anion Gap 8 BUN 9 Creatinine 0.83 Estim Creat Clear Calc 61.86 Est GFR (MDRD) Af Amer 92 Est GFR (MDRD) Non-Af 76 BUN/Creatinine Ratio 10.9 Glucose 172 H Calcium 9.9 Total Bilirubin 0.40 Direct Bilirubin 0.07 AST 15 ALT 23 Alkaline Phosphatase 103 Total Protein 7.8 Albumin 4.1 Globulin 3.7 Lipase 09/22/19 16:10 WBC RBC Hgb Hct MCV MCH MCHC RDW Std Deviation RDW Coeff of Celine Plt Count MPV Immature Gran % (Auto) Neut % (Auto) Lymph % (Auto) [place] % (Auto) Eos % (Auto) Baso % (Auto) Absolute Neuts (auto) Absolute Lymphs (auto) Nucleated RBC % Sodium Potassium Chloride Carbon Dioxide Anion Gap BUN Creatinine Estim Creat Clear Calc Est GFR (MDRD) Af Amer Est GFR (MDRD) Non-Af BUN/Creatinine Ratio Glucose Calcium Total Bilirubin Direct Bilirubin AST ALT Alkaline Phosphatase Total Protein Albumin Globulin Lipase 162 - Medical Decision Making Patient abdominal labs normal lipase and liver enzymes potassium 3.3, she is on hydrochlorothiazide. Given GI cocktail states significant improvement. She is on omeprazole for which she will go to twice a day for the next 2 weeks, add Carafate for 2 weeks. She will monitor for any bleeding issues. She will follow-up with her PCP reevaluation referral back to GI as needed. 1 week supply of potassium for replacement. All questions were answered. ED Disposition - Plan for ED Patient: Disposition: Home or Assisted Living Diagnosis: Gastritis Instructions: GASTRITIS vs. ULCER Prescriptions: Sucralfate [Carafate] 1 gm PO 4X/DAY #60 tablet Potassium Chloride [K-Dur] 20 meq PO DAILY #7 tablet Referrals: Zachary Toney MD [Primary Care Provider] - 5-7 Days
[2019-09-22 17:45] LABS: Lipase 162 U/L (73-393)
[2019-09-22 17:49] LABS: AST(SGOT) 15 U/L (15-37); Alanine Aminotransfer ALT/SGPT 23 U/L (13-56); Albumin, Serum 4.1 g/dL (3.2-5.0); Alkaline Phosphatase 103 U/L (45-117); Bilirubin, Direct 0.07 mg/dL (0.00-0.30); Globulin 3.7 g/dL (2.2-4.2); Protein, Total 7.8 g/dL (6.4-8.2)
== END 2019-09-22 18:10 | disposition home or self-care (01) ==
PROVIDERS: Emergency Provider Emergency Medicine; PCP Internal Medicine
DX: K29.70 Gastritis, unspecified, without bleeding (principal); E11.9 Type 2 diabetes mellitus without complications; I10 Essential (primary) hypertension; Z87.440 Personal history of urinary (tract) infections; Z79.4 Long term (current) use of insulin; Z79.84 Long term (current) use of oral hypoglycemic drugs; Z79.899 Other long term (current) drug therapy
CPT/HCPCS: 80048; 80076; 83690; 85025; 99284; A4216

== ENCOUNTER 2020-07-14 19:14 | Emergency (ER) | payer OTHER, MEDICAID, SELFPAY ==
[2020-07-14 19:15] VITALS: BP 167/104; PULSE 83; RESP 20; TEMP 37; O2SAT 96; BMI 32.3
[2020-07-14 19:20] VITALS: BP 167/104; PULSE 83; RESP 20; TEMP 37; O2SAT 98; O2SAT 99
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
[2020-07-14] MEDS: Ondansetron 4 MG/2 ML Vial IV (19:55)
[2020-07-14] MEDS: fentaNYL 100 MCG/2 ML Ampul 50 MCG IV (19:55)
[2020-07-14 20:07] LABS: Anion Gap 7 (5-15); BUN 17 mg/dL (7-18); BUN/Creat Ratio 18.1 RATIO (10-20); Calcium,Total 9.7 mg/dL (8.5-10.1); Chloride 104 mmol/L (98-107); Creatinine, Serum 0.94 mg/dL (0.55-1.02); EST Glomerular Filtration Rate 65 mL/min (>60); Est Glom Filt Rate - Afr Amer 79 mL/min (>60); Estimated Creatinine Clearance 53.96 ml/min; Glucose 283 mg/dL (74-106); Potassium 3.2 mmol/L (3.5-5.1); Sodium Level 138 mmol/L (136-145)
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
[2020-07-14 21:30] VITALS: BP 171/93
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
[2020-07-14 22:14] VITALS: BP 171/93; PULSE 83; RESP 16
== END 2020-07-14 22:15 | disposition home or self-care (01) ==
PROVIDERS: Emergency Provider Emergency Medicine; PCP Internal Medicine
DX: S20.219A Contusion of unspecified front wall of thorax, initial encounter (principal); E11.9 Type 2 diabetes mellitus without complications; E78.00 Pure hypercholesterolemia, unspecified; V89.2XXA Person injured in unspecified motor-vehicle accident, traffic, initial encounter; Z79.4 Long term (current) use of insulin
CPT/HCPCS: 71275; 80048; 96374; 96375; 99285; Q9967; A4216; J2405

== ENCOUNTER → 2020-07-15 13:50 | Outpatient (CLI) | payer OTHER, MEDICAID, SELFPAY ==
[2020-07-14 19:15] VITALS: BMI 32.3
--- NOTE | 2020-07-15 13:52 | VDLE_ITS ---
Reason For Study: PAIN RIGHT LEFT GSV is normal. GSV is normal. CFV is compressible, spontaneous, phasic, CFV is compressible, spontaneous, phasic, competent and demonstrates normal competent, and demonstrates normal augmentation. augmentation. FV is compressible, spontaneous, phasic, FV is compressible, spontaneous, phasic, competent and demonstrates normal competent and demonstrates normal augmentation. augmentation. POP V is compressible, spontaneous, phasic, POP V is compressible, spontaneous, phasic, competent and demonstrates normal competent and demonstrates normal augmentation. augmentation. T/P Trunk is compressible. T/P Trunk is compressible. Rt PTV and PeroV not visualized due to PTV is compressible. plaster cast. LT PerV is compressible. Procedure Exam performed in department. Interpretation Summary Deep veins of the lower extremities are bilaterally patent and compressible segmentally. There is no evidence of deep vein thrombosis on either side. Valvular competence appears intact within the proximal deep venous systems bilaterally. The great saphenous veins appear bilaterally patent and compressible segmentally. The right posterior tibial vein and peroneal vein were not visualized due to the presence of a plaster cast. Ordering Physician: Manju Mejia Referring Physician: CHRIS HALL Performed By: Kristen Blackwood, JUANITA, RVT
== END ==
PROVIDERS: PCP Internal Medicine; Referring Provider Emergency Medicine; Visit Provider Emergency Medicine
DX: M79.605 Pain in left leg (principal); M79.604 Pain in right leg
CPT/HCPCS: 93970

== ENCOUNTER → 2020-08-16 07:56 | Outpatient (CLI) | payer MEDICAID, SELFPAY ==
[2020-08-12 11:37] VITALS: BMI 28.3
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
== END ==
PROVIDERS: PCP Internal Medicine; Referring Provider Orthopaedic Surgery; Visit Provider Orthopaedic Surgery
DX: M54.2 Cervicalgia (principal)
CPT/HCPCS: 72141

== ENCOUNTER 2021-04-09 10:19 | Emergency (ER) | payer MEDICAID, SELFPAY ==
[2021-04-09 10:23] VITALS: BP 96/59; PULSE 90; RESP 18; TEMP 36.7; O2SAT 97; BMI 25.7
[2021-04-09 10:25] VITALS: BP 96/59; PULSE 88; RESP 16; O2SAT 96
--- NOTE | 2021-04-09 10:45 | US_ITS ---
STUDY: ABDOMINAL ULTRASOUND - RIGHT UPPER QUADRANT REASON FOR VISIT: Female, 60 years old upper abd pain, n/v TECHNIQUE: Ultrasound evaluation of the right upper quadrant was performed with real-time and static kay-scale imaging. TECHNICAL QUALITY: Adequate. COMPARISON: None. FINDINGS: Liver: The liver measures 18.5 cm. There is increased echogenicity consistent with fatty infiltration. The bile ducts are within normal limits. There is hepatic color flow. The direction of portal flow is hepatopetal. There is no demonstrated mass lesion. Gallbladder: Normal distended gallbladder. The gallbladder wall measures 1.5 mm. There is a negative sonographic Levy''s sign. There is no pericholecystic fluid. There are no gallstones. Common Bile Duct (C.B.D.): The common bile duct measures 4.4 mm. Pancreas: Normal size of the head, body and tail of the pancreas. There is normal echogenicity of the pancreas. There is no demonstrated pancreatic mass or cyst. Pancreatic duct measures 2 mm Right Kidney: Normal size of the right kidney. The right kidney measures 11.6 x 5 x 5.7 cm. Normal renal cortex. The right cortex measures 1.5 cm. There is no demonstrated renal mass or cyst. There is no right hydronephrosis. US/Gallbladder IMPRESSION: Hepatomegaly with diffuse fatty infiltration of the liver, no discrete lesion Sonographically normal gallbladder Mild nonspecific pancreatic ductal dilatation Electronically Signed: Chidi Garcia MD at 12:57 EDT , Service support ,
--- NOTE | 2021-04-09 10:50 | RAD_ITS ---
STUDY: X-RAY CHEST REASON FOR EXAM: Female, 60 years old. Cough, fever TECHNIQUE: Single AP portable view of the chest. COMPARISON: None. FINDINGS: There are interstitial changes of the lungs. There is no demonstrated pleural abnormality. Normal size heart. Normal mediastinum and tamica. Normal visualized pulmonary arteries. There is atherosclerotic calcification of the aortic arch with tortuosity. There are diffuse degenerative changes of the visualized thoracic spine. There is degenerative osteoarthritis of the bilateral shoulders. There is no demonstrated abnormality of the visualized soft tissue structures of the upper abdomen. RAD/Chest 1 View (Portable) IMPRESSION: Chronic interstitial changes, no superimposed acute pulmonary process Electronically Signed: Chidi Garcia MD at 12:58 EDT , Service support ,
--- NOTE | 2021-04-09 10:53 | EDS_ITS ---
HPI HPI - GI History of Present Illness Chief Complaint: Abd Pain Abdominal Pain/Flank Pain Onset: Weeks (1) Context: Gradual Onset Timing: Continuous and Waxes and wanes Quality: Aching Location: Epigastric Current Severity: Moderate Maximum Severity: Moderate Worsened by: Nothing Relieved by: Nothing Nausea/Vomiting/Emesis GI Symptom: Positive for Nausea and Vomiting Onset: Weeks (1) Quality: Positive for Nonbilious; Negative for Coffee ground and Hematemesis Diarrhea/Melena/Hematochezia GI Symptom: Positive for Diarrhea (Couple days ago had watery diarrhea that was significant but resolved now); Negative for Melena and Hematochezia Associated Symptoms Associated Symptoms: Negative for Dysuria, Frequency, Hematuria and Urgency Narrative Narrative: Patient has been having upper abdominal pain that occasionally radiates into her back, more on the left than the right, along with nausea and vomiting. She occasionally drinks alcohol but has had none in the amount of time since this pain is started. She has had prior hysterectomy and a tummy tuck no other abdominal surgeries. She had a fever last night and today up to 101.6 maximum, and she has had a cough for months that has been nonproductive. She denies any shortness of breath. She has never had Covid. She has not been vaccinated yet but tried to get it last week when she saw her PCP, but they advised that she wait since she was ill. She has had no recent contact with anyone with Covid that she knows of. [facility] Medical History (Updated 04/09/21 @ 13:[address] Nathan Schofield MD) DM type 2 (diabetes mellitus, type 2) GERD (gastroesophageal reflux disease) HTN (hypertension) Hyperlipidemia Home Medications atorvastatin 40 mg PO QHS 09/22/19 [History Last Taken 09/21/19] lisinopril-hydrochlorothiazide 1 tab PO DAILY 09/22/19 [History Last Taken 09/21/19] sertraline 100 mg PO DAILY 09/22/19 [History Last Taken 09/21/19] trazodone 100 mg PO QHS 09/22/19 [History Last Taken 09/21/19] metformin 500 mg tablet,extended release 24 hr 1,000 mg PO BID tab 08/12/20 [History Last Taken Unknown] insulin aspart U-100 5 unit SUBCUT TID 04/09/21 [History Last Taken Unknown] insulin glargine [Lantus Solostar U-100 Insulin] 30 unit SUBCUT BREAKFAST 04/09/21 [History Last Taken Unknown] pantoprazole [Protonix] 40 mg PO DAILY #30 tab 04/09/21 [Rx Last Taken Unknown] sucralfate [Carafate] 1 g PO BID 14 Days #28 tab 04/09/21 [Rx Last Taken Unknown] Allergy/AdvReac Type Severity Reaction Status Date / Time simvastatin [From Zocor] Allergy Swelling Verified 04/09/21 10:19 Sulfa (Sulfonamide Allergy Swelling Verified 04/09/21 10:19 Antibiotics) Family History (Updated 08/12/20 @ 11:45 by Nayely Lott) Mother Hypertension Lupus Glaucoma Arthritis Neuropathy Brother Diabetes Hypertension Hyperlipemia Surgical History (Updated 04/09/21 @ 11:30 by Ivory Corrales) H/O foot surgery h/o left hand surgery History of hip surgery History of hysterectomy History of left knee surgery History of rotator cuff surgery Social History household members: other details: daughter housing: house Smoking Status: Former smoker Tobacco: How many years used: 35 alcohol intake: never what type of physical activity do you participate in: none do you feel safe at home: Yes ROS ROS ED Constitutional Constitutional ED: Reports fever(s); Denies body ache(s) or chills Eyes Eyes: Denies change in vision or diplopia ENT ENT ED: Denies ear pain, hoarseness, loss taste/smell, rhinorrhea, sinus pain or sore throat Cardiovascular Cardiovascular: Denies chest pain or palpitations Respiratory/Chest Respiratory/Chest: Reports cough; Denies dyspnea Gastrointestinal Gastrointestinal: Reports as per HPI, abdominal pain, nausea and vomiting; Denies diarrhea Genitourinary Genitourinary ED: Denies dysuria or hematuria Musculoskeletal Musculoskeletal: Reports back pain; Denies neck pain Integumentary Denies abscess or rash Neurologic Neurologic: Denies headache(s), paresthesias or weakness Psychiatric Psychiatric: Denies anxiety or suicidal thoughts EXAM Physical Exam Const Vital Signs: 04/09/21 10:23 04/09/21 10:25 Temperature 98.1 F Temperature Source Temporal Pulse Rate 90 88 Respiratory Rate 18 16 Blood Pressure 96/59 L 96/59 L Blood Pressure Mean 71 71 Pulse Ox 97 96 Oxygen Delivery Method Room Air Room Air Positive well nourished and well developed General Appearance ED: well developed and NAD HEENT Reports moist mucous membranes normocephalic and atraumatic Eyes PERRL and EOMs intact bilaterally Neck full ROM and supple Resp normal respiratory effort and clear to auscultation bilaterally Cardio regular rate, regular rhythm and no murmurs GI non-distended GI Narrative: Tender across upper abdomen worse in the epigastrium. Otherwise nontender. Auscultation: normoactive bowel sounds Palpation: soft and guarding other (Epigastrium only. Negative Levy's.); Negative for rebound tenderness present Back/Spine no CVA tenderness General Back: other FROM Extremity normal to inspection General Extremety ED: Negative for edema, pulses abnormal or tenderness General Extremity: Negative for edema or pulses abnormal Neuro oriented x3, CN's II-XII intact bilaterally and no sensory deficits noted Sensorium / Orientation: awake and alert Motor Exam: strength 5/5 throughout Skin no rashes or lesions noted and no wounds MDM MDM MDM Narrative Medical decision making narrative: Other than a slightly elevated alkaline phosphatase and glucose of 311 the rest of her work-up medically is unremarkable. Her urine is normal. I obtained an ultrasound of her right upper quadrant, it is normal except for mild hepatomegaly and diffuse fatty infiltration of the liver. Patient was initially treated with morphine and Zofran which did help her pain. It is possible this is intraluminal disease, I will put her on PPI and Carafate for a week or 2 and see if that makes a difference, follow-up advised. Patient was concerned about pancreatitis, no evidence of that at this time. Lab Data Attestation: I reviewed the patient's lab results. Labs: Laboratory Results - last 24 hr 04/09/21 04/09/21 04/09/21 11:32 11:32 11:42 WBC 10.4 RBC 4.85 Hgb 14.3 Hct 42.5 MCV 87.6 MCH 29.5 MCHC 33.6 RDW Std Deviation 39.7 RDW Coeff of Celine 12.4 Plt Count 232 MPV 10.7 Immature Gran % (Auto) 2.400 H Neut % (Auto) 89.4 H Lymph % (Auto) 3.8 L [place] % (Auto) 3.8 Eos % (Auto) 0.2 Baso % (Auto) 0.4 Absolute Neuts (auto) 9.3 H Absolute Lymphs (auto) 0.40 L Nucleated RBC % 0 Sodium 134 L Potassium 3.1 L Chloride 96 L Carbon Dioxide 29.0 Anion Gap 9 BUN 8 Creatinine 0.83 Estim Creat Clear Calc 61.12 Est GFR (MDRD) Af Amer 90 Est GFR (MDRD) Non-Af 75 BUN/Creatinine Ratio 9.6 L Glucose 311 H Calcium 9.1 Total Bilirubin 0.50 AST 12 L ALT 17 Alkaline Phosphatase 138 H Total Protein 6.8 Albumin 3.5 Globulin 3.3 Albumin/Globulin Ratio 1.1 Lipase 64 L Urine Color Yellow Urine Clarity Clear Urine pH 6.0 Ur Specific [place] 1.010 Urine Protein Negative Urine Glucose (UA) 1000 H Urine Ketones Negative Urine Occult Blood Negative Urine Nitrite Negative Urine Bilirubin Negative Urine Urobilinogen Normal Ur Leukocyte Esterase Negative Urine RBC 0 SEEN Urine WBC 0-5 SEEN Ur Squamous Epith Cells 0 SEEN Urine Bacteria 0 SEEN Urine Mucus 0 SEEN Radiography Diagnostic Testing: Radiology Impression Gallbladder Ultrasound 04/09/21 10:45 IMPRESSION: Hepatomegaly with diffuse fatty infiltration of the liver, no discrete lesion Sonographically normal gallbladder Mild nonspecific pancreatic ductal dilatation Electronically Signed: Chidi Garcia MD at 12:57 EDT , Service support , Chest X-Ray 04/09/21 10:50 IMPRESSION: Chronic interstitial changes, no superimposed acute pulmonary process Electronically Signed: Chidi Garcia MD at 12:58 EDT , Service support , Discharge Plan Triage Chief Complaint: Abd Pain ED Provider: Nathan Schofield Dx/Rx/DC Orders Clinical Impression: Acute upper abdominal pain Instructions: ED Epigastric Pain Uncertain Cause Prescriptions: New pantoprazole [Protonix] 40 mg tablet,delayed release (DR/EC) 40 mg PO DAILY Qty: 30 RF: 0 sucralfate [Carafate] 1 gram tablet 1 g PO BID 14 Days Qty: 28 RF: 0 No Action atorvastatin 20 MG tablet 40 mg PO QHS RF: 0 lisinopril-hydrochlorothiazide 1 EACH tablet 1 tab PO DAILY RF: 0 sertraline 100 MG tablet 100 mg PO DAILY RF: 0 trazodone 100 MG tablet 100 mg PO QHS RF: 0 metformin 500 mg tablet extended release 24 hr 1,000 mg PO BID RF: 0 insulin aspart U-100 100 unit/mL (3 mL) insulin pen 5 unit SUBCUT TID RF: 0 Lantus Solostar U-100 Insulin 100 unit/mL (3 mL) insulin pen 30 unit SUBCUT BREAKFAST RF: 0 Primary Care Provider: Zachary Toney Referrals: Zachary Toney MD [Primary Care Provider] - 3-5 Days if not improving Disposition Disposition: Home, Self Care
[2021-04-09] MEDS: Morphine 4 MG/ML Syringe IV (11:23)
[2021-04-09] MEDS: 0.9% Normal Saline 1,000 ML 1000 ML IV (11:23)
[2021-04-09] MEDS: Ondansetron 4 MG/2 ML Vial IV (11:24)
[2021-04-09 11:47] LABS: Bacteria 0 SEEN /hpf (None Seen); Mucous, Urine 0 SEEN /hpf (<or=2+); Red Blood Cells-Urine 0 SEEN /hpf (0-5); Squamous Epithelial Cells - UA 0 SEEN /hpf (5-10)
[2021-04-09 11:50] LABS: Absolute Neutrophil Count 9.3 X10^3/uL (2.0-7.7); Basophil# 0.04 X10^3/uL; Basophil% 0.4 % (0-1); Eosinophil# 0.02 X10^3/uL; Eosinophils% 0.2 % (0-5); Hematocrit 42.5 % (37-47); Hemoglobin 14.3 g/dL (12.0-15.0); Lymphocyte % 3.8 % (19-41); Mean Corp Hgb Conc 33.6 g/dL (32-36); Mean Corpuscular Hgb 29.5 pg (27.0-32.0); Mean Corpuscular Volume 87.6 fL (81-99); Mean Platelet Vol. 10.7 fl (6.2-12.0); Monocyte% 3.8 % (0-10); NRBC Flagged by Analyzer 0 % (0-5); Neutrophil # 9.31 X10^3/uL (2.7-7.7); Neutrophil % 89.4 % (47-70); POSITIVE DIFFERENTIAL YES; Platelet Count 232 K/mm3 (150-450); RBC Distribution Width CV 12.4 % (11.6-14.6); RBC Distribution Width SD 39.7 fl (35.1-43.9); Red Blood Count 4.85 M/mm3 (4.2-5.4); White Blood Count 10.4 K/mm3 (4.4-11.0)
[2021-04-09 11:51] LABS: Differential Indicated SCAN CRITERIA MET
[2021-04-09 11:59] LABS: Color, Urine Yellow (Yellow); Glucose, Dipstick 1000 mg/dl (Normal); Ketone-Dipstick Negative (Negative); Leukocyte Esterase-Dipstick Negative /ul (Negative); Nitrite-Dipstick Negative (Negative); Occult Blood-Urine Negative /ul (Negative); Protein-Dipstick Negative (Negative); Urine Bilirubin Dipstick Negative (Negative); Urine Clarity Clear (Clear); Urine Urobilinogen Normal (Normal)
[2021-04-09 12:02] LABS: ALB/GLOB Ratio 1.1 RATIO (0.9-2.4); AST(SGOT) 12 U/L (15-37); Alanine Aminotransfer ALT/SGPT 17 U/L (13-56); Albumin, Serum 3.5 g/dL (3.2-5.0); Alkaline Phosphatase 138 U/L (45-117); Anion Gap 9 (5-15); BUN 8 mg/dL (7-18); BUN/Creat Ratio 9.6 RATIO (10-20); Calcium,Total 9.1 mg/dL (8.5-10.1); Chloride 96 mmol/L (98-107); Creatinine, Serum 0.83 mg/dL (0.55-1.02); EST Glomerular Filtration Rate 75 mL/min (>60); Est Glom Filt Rate - Afr Amer 90 mL/min (>60); Estimated Creatinine Clearance 61.12 ml/min; Globulin 3.3 g/dL (2.2-4.2); Glucose 311 mg/dL (74-106); Lipase 64 U/L (73-393); Potassium 3.1 mmol/L (3.5-5.1); Protein, Total 6.8 g/dL (6.4-8.2); Sodium Level 134 mmol/L (136-145)
[2021-04-09 12:06] LABS: White Blood Cells 0-5 SEEN /hpf (0-5)
[2021-04-09 13:48] VITALS: BP 124/77; PULSE 82; RESP 15; O2SAT 98
== END 2021-04-09 13:49 | disposition home or self-care (01) ==
PROVIDERS: Emergency Provider Emergency Medicine; PCP Internal Medicine
DX: R10.11 Right upper quadrant pain (principal); R10.12 Left upper quadrant pain; R11.2 Nausea with vomiting, unspecified; R05 Cough; K76.0 Fatty (change of) liver, not elsewhere classified; I10 Essential (primary) hypertension; E11.9 Type 2 diabetes mellitus without complications; E78.5 Hyperlipidemia, unspecified; K21.9 Gastro-esophageal reflux disease without esophagitis; Z79.4 Long term (current) use of insulin; Z79.899 Other long term (current) drug therapy; Z87.891 Personal history of nicotine dependence
CPT/HCPCS: 71045; 76705; 80053; 81001; 83690; 85025; 87426; 96374; 96375; 99283; J7030; A4216; J2405

== ENCOUNTER 2021-05-08 21:11 | Inpatient (IN) | payer MEDICAID, SELFPAY ==
[2021-05-08 21:13] VITALS: BP 160/94; PULSE 87; RESP 16; TEMP 36.3; O2SAT 96; BMI 25.7
[2021-05-08 21:15] VITALS: BP 160/94; PULSE 87; RESP 16; TEMP 36.3; O2SAT 96
--- NOTE | 2021-05-08 22:12 | US_ITS ---
STUDY: ABDOMINAL ULTRASOUND - RIGHT UPPER QUADRANT REASON FOR VISIT: Female, 60 years old RT SIDE ABD PAIN WITH N AND V TECHNIQUE: Ultrasound evaluation of the right upper quadrant was performed with real-time and static kay-scale imaging. TECHNICAL QUALITY: Adequate. COMPARISON: 04/09/2021 FINDINGS: Liver: The liver measures 16.7 cm. There is mildly increased echogenicity consistent with fatty infiltration. The bile ducts are within normal limits. There is hepatic color flow. The direction of portal flow is hepatopetal. There is no demonstrated mass lesion. Gallbladder: Normal distended gallbladder. The gallbladder wall measures 1 mm. There is a negative sonographic Levy''s sign. There is no pericholecystic fluid. There are no gallstones. Common Bile Duct (C.B.D.): The common bile duct measures 4 mm. Pancreas: Normal size of the head and body of the pancreas. The tail is obscured by bowel gas. There is normal echogenicity of the pancreas. There is no demonstrated pancreatic mass or cyst. 2 mm pancreatic duct caliber. Right Kidney: Normal size of the right kidney. The right kidney measures 10.9 x 4.7 x 5.7 cm. Normal renal cortex. The right cortex measures 1.7 cm. There is no demonstrated renal mass or cyst. 5 mm nonobstructing collecting system calculus. There is no right hydronephrosis. US/Gallbladder IMPRESSION: Nonobstructing right renal calculus. No acute abnormal finding. Hepatic steatosis. Electronically Signed: Taov Sauer MD at 23:39 EDT Tel , Service support ,
[2021-05-08] MEDS: Morphine 4 MG/ML Syringe IV (22:45)
[2021-05-08] MEDS: Ondansetron 4 MG/2 ML Vial IV (22:45)
[2021-05-08] MEDS: Ketorolac 15 MG/ML Vial IV (22:45)
[2021-05-08 23:15] VITALS: BP 145/74; PULSE 79; RESP 15; TEMP 36.4; O2SAT 98
[2021-05-08 23:20] LABS: ALB/GLOB Ratio 0.8 RATIO (0.9-2.4); AST(SGOT) 10 U/L (15-37); Alanine Aminotransfer ALT/SGPT 11 U/L (13-56); Albumin, Serum 3.1 g/dL (3.2-5.0); Alkaline Phosphatase 107 U/L (45-117); Anion Gap 9 (5-15); BUN 9 mg/dL (7-18); BUN/Creat Ratio 13.8 RATIO (10-20); Chloride 97 mmol/L (98-107); Creatinine, Serum 0.65 mg/dL (0.55-1.02); EST Glomerular Filtration Rate 99 mL/min (>60); Est Glom Filt Rate - Afr Amer 119 mL/min (>60); Estimated Creatinine Clearance 78.04 ml/min; Glucose 148 mg/dL (74-106); Lipase 57 U/L (73-393); Potassium 2.1 mmol/L (3.5-5.1); Protein, Total 7.1 g/dL (6.4-8.2); Sodium Level 135 mmol/L (136-145)
[2021-05-08 23:26] LABS: Absolute Lymphocyte Count 2.12 X10^3/uL (0.83-4.51); Absolute Neutrophil Count 9.9 X10^3/uL (2.0-7.7); Basophil# 0.06 X10^3/uL; Basophil% 0.5 % (0-1); Eosinophil# 0.08 X10^3/uL; Eosinophils% 0.6 % (0-5); Hematocrit 35.5 % (37-47); Hemoglobin 12.3 g/dL (12.0-15.0); Lymphocyte # 2.12 X10^3/ul (0.83-4.51); Lymphocyte % 16.1 % (19-41); Mean Corp Hgb Conc 34.6 g/dL (32-36); Mean Corpuscular Hgb 29.1 pg (27.0-32.0); Mean Corpuscular Volume 84.1 fL (81-99); Mean Platelet Vol. 10.1 fl (6.2-12.0); Monocyte# 0.95 X10^3/uL; Monocyte% 7.2 % (0-10); NRBC Flagged by Analyzer 0 % (0-5); Neutrophil % 75.2 % (47-70); Platelet Count 370 K/mm3 (150-450); RBC Distribution Width CV 11.9 % (11.6-14.6); RBC Distribution Width SD 36.2 fl (35.1-43.9); Red Blood Count 4.22 M/mm3 (4.2-5.4); White Blood Count 13.2 K/mm3 (4.4-11.0)
[2021-05-08 23:44] LABS: Mucous, Urine 0 SEEN /hpf (<or=2+); Red Blood Cells-Urine 0 SEEN /hpf (0-5)
[2021-05-08 23:45] LABS: Color, Urine Yellow (Yellow); Glucose, Dipstick 50 mg/dl (Normal); Ketone-Dipstick Negative (Negative); Leukocyte Esterase-Dipstick 100 /ul (Negative); Nitrite-Dipstick Positive (Negative); Occult Blood-Urine 150 /ul (Negative); Protein-Dipstick 30 mg/dl (Negative); Specific Gravity, Urine 1.005 (1.002-1.030); Urine Bilirubin Dipstick Negative (Negative); Urine Clarity Clear (Clear); Urine Urobilinogen 1 mg/dl (Normal)
--- NOTE | 2021-05-08 23:46 | CT_ITS ---
STUDY: CT ABDOMEN AND PELVIS WITH CONTRAST REASON FOR EXAM: Female, 60 years old. RLQ pain RADIATION DOSAGE (If Supplied By Facility): CTDIvol = ( 17.14 ) mGy, DLP = ( 1594.17 ) mGycm TECHNIQUE: Transaxial images were obtained from the dome of the diaphragm to the symphysis pubis without oral contrast. IV 100mL [id number]-[id number] was administered. Sagittal and coronal images were reconstructed. Individualized dose optimization techniques were used for this CT. COMPARISON: 07/14/2020 FINDINGS: The visualized lung bases are unremarkable. Coronary calcifications demonstrated. Normal liver. Normal gallbladder and extrahepatic biliary system. Normal spleen. Normal pancreas. There is a small, circumscribed, smooth, low attenuation left adrenal mass, consistent with an adrenal adenoma, similar compared to 07/14/2020. Normal right adrenal gland. Mild right hydroureteronephrosis with perinephric fat stranding. No finding of renal or ureteral calculus. Delayed images demonstrate contrast throughout the right ureter. Normal left kidney. Normal visualized stomach. Normal small intestine. Normal colon. The appendix is visualized and appears normal. Normal abdominal aorta. Normal inferior vena cava. Normal retroperitoneum. Normal urinary bladder. There is absence of the uterus consistent with a prior hysterectomy. Normal abdominal wall. There are diffuse degenerative changes of the visualized lumbar spine. CT/Abdomen/Pelvis W IV Cont ONLY IMPRESSION: Mild right hydroureteronephrosis and perinephric fat stranding without finding of urinary obstruction may represent recently passed urinary calculus. Electronically Signed: Tavo Sauer MD at 0:35 EDT Tel , Service support ,
[2021-05-09] VITALS (8 sets, daily range): BP systolic 102–149; BP diastolic 69–81; PULSE 60–78; RESP 16–19; TEMP 36.3–36.7; O2SAT 97–100; BMI 25.7; BMI 25.9
[2021-05-09 00:07] LABS: Bacteria 4+ /hpf (None Seen)
[2021-05-09 00:08] LABS: Squamous Epithelial Cells - UA 0-5 SEEN /hpf (5-10); White Blood Cells 10-25 SEEN /hpf (0-5)
[2021-05-09] MEDS: Potassium Chloride 10mEq/100mL 10 MEQ/100 ML IV.SOLN. 100 MEQ IV BOLUS ×4 (00:11→11:00)
[2021-05-09] MEDS: Potassium Chloride Oral Tablet 20 MEQ 40 MEQ PO (00:11)
--- NOTE | 2021-05-09 00:36 | EDS_ITS ---
HPI HPI - GI History of Present Illness Chief Complaint: Flank Pain Narrative Narrative: Patient presenting for evaluation secondary to abdominal pain. Patient states that she has a longstanding history of abdominal pain, does have a past history of pancreatitis. Patient states that she has been dealing with this abdominal pain for multiple weeks, but more recently seems like it has gotten worse and now is associated with right-sided flank and right-sided ab dominal pain. States that it is a sharp continuous type pain. Its been associated with some decreased p.o. intake. Patient denies any presence of fevers associated with it. She denies any diarrhea. Patient does report she has some dysuria but no hematuria. Patient has a past history of section, but no history of cholecystectomy or appendectomy. Review of systems otherwise negative. [facility] Medical History DM type 2 (diabetes mellitus, type 2) GERD (gastroesophageal reflux disease) HTN (hypertension) Hyperlipidemia Home Medications atorvastatin 40 mg PO QHS 09/22/19 [History Last Taken 09/21/19] lisinopril-hydrochlorothiazide 1 tab PO DAILY 09/22/19 [History Last Taken 09/21/19] sertraline 100 mg PO DAILY 09/22/19 [History Last Taken 09/21/19] trazodone 100 mg PO QHS 09/22/19 [History Last Taken 09/21/19] metformin 500 mg tablet,extended release 24 hr 1,000 mg PO BID tab 08/12/20 [History Last Taken Unknown] insulin aspart U-100 5 unit SUBCUT TID 04/09/21 [History Last Taken Unknown] insulin glargine [Lantus Solostar U-100 Insulin] 30 unit SUBCUT BREAKFAST 04/09/21 [History Last Taken Unknown] pantoprazole [Protonix] 40 mg PO DAILY #30 tab 04/09/21 [Rx Last Taken Unknown] sucralfate [Carafate] 1 g PO BID 14 Days #28 tab 04/09/21 [Rx Last Taken Unknown] Allergy/AdvReac Type Severity Reaction Status Date / Time simvastatin [From Zocor] Allergy Swelling Verified 05/08/21 21:15 Sulfa (Sulfonamide Allergy Swelling Verified 05/08/21 21:15 Antibiotics) Family History Mother Hypertension Lupus Glaucoma Arthritis Neuropathy Brother Diabetes Hypertension Hyperlipemia Surgical History H/O foot surgery h/o left hand surgery History of hip surgery History of hysterectomy History of left knee surgery History of rotator cuff surgery Social History household members: other details: daughter housing: house Smoking Status: Former smoker Tobacco: How many years used: 35 alcohol intake: never what type of physical activity do you participate in: none do you feel safe at home: Yes ROS ROS ED Constitutional Constitutional ED: Denies chills or fever(s) ENT ENT ED: Denies sore throat Cardiovascular Cardiovascular: Denies chest pain Respiratory/Chest Respiratory/Chest: Denies cough or dyspnea Gastrointestinal Gastrointestinal: Reports abdominal pain Genitourinary Genitourinary ED: Reports dysuria Musculoskeletal Musculoskeletal: Denies myalgias Integumentary Denies rash Neurologic Neurologic: Denies paresthesias or weakness Psychiatric Psychiatric: Denies depression Endocrine Endocrinology: Denies polyuria Hematologic/Lymphatic Hematologic/Lymphatic: Denies easy bleeding or easy bruising Allergic/Immunologic Allergic/Immunologic ED: Denies urticaria EXAM Physical Exam Const Vital Signs: 05/08/21 21:13 05/08/21 21:15 05/08/21 22:50 Temperature 97.3 F L 97.3 F L Temperature Source Temporal Temporal Pulse Rate 87 87 Respiratory Rate 16 16 Respiratory Effort Normal Non-Labored Respiratory Pattern Normal Blood Pressure 160/94 H 160/94 H Blood Pressure Mean 116 116 Pulse Ox 96 96 Oxygen Delivery Method Room Air Room Air 05/08/21 23:15 Temperature 97.6 F L Temperature Source Oral Pulse Rate 79 Respiratory Rate 15 Respiratory Effort Respiratory Pattern Blood Pressure 145/74 H Blood Pressure Mean 97 Pulse Ox 98 Oxygen Delivery Method Room Air Positive well nourished and well developed General Appearance ED: well developed and NAD HEENT normocephalic and atraumatic Eyes EOMs intact bilaterally General Eye ED: Negative for pale conjunctiva or scleral icterus Neck no lymphadenopathy and supple Resp normal respiratory effort and clear to auscultation bilaterally Cardio regular rate, regular rhythm, no murmurs and peripheral pulses 2+ throughout GI non-distended and no masses Palpation: soft and tender RLQ and RUQ; Negative for guarding, rigid or rebound tenderness present Back/Spine no CVA tenderness Extremity full ROM General Extremety ED: Negative for edema General Extremity: Negative for edema Neuro moves all extremities and no sensory deficits noted Sensorium / Orientation: alert, oriented to person, oriented to place and oriented to time Motor Exam: strength 5/5 throughout Psych mental status grossly normal Skin Rashes: no rashes MDM MDM MDM Narrative Medical decision making narrative: Patient presented secondary to abdominal pain. IV was tablets laboratory studies were obtained patient was given morphine Zofran and fluids. CBC demonstrates a leukocytosis at 13,000 with somewhat of a neutrophilic predominance at 75%. Patient's chemistry profile shows a potassium of 2.1 with otherwise normal renal function. Patient's liver profile was found to be unremarkable. Lipase was found to be unremarkable. Urinalysis does demonstrate signs of infection. Right upper quadrant ultrasound was found to be negative per radiology. Repeat evaluation of the patient at 0041 shows the patient to have symptomatic improvement from the morphine. Patient did have a CT abdomen and pelvis ordered due to her abdominal pain with leukocytosis, I did replace the patient's potassium. Patient will require admission secondary to her hypokalemia. Patient will be admitted following the results of her CT abdomen and pelvis. Lab Data Labs: Laboratory Results - last 24 hr 05/08/21 05/08/21 05/08/21 22:45 22:45 23:40 WBC 13.2 H RBC 4.22 Hgb 12.3 Hct 35.5 L MCV 84.1 MCH 29.1 MCHC 34.6 RDW Std Deviation 36.2 RDW Coeff of Celine 11.9 Plt Count 370 MPV 10.1 Immature Gran % (Auto) 0.400 Neut % (Auto) 75.2 H Lymph % (Auto) 16.1 L [place] % (Auto) 7.2 Eos % (Auto) 0.6 Baso % (Auto) 0.5 Absolute Neuts (auto) 9.9 H Absolute Lymphs (auto) 2.12 Nucleated RBC % 0 Sodium 135 L Potassium 2.1 L* Chloride 97 L Carbon Dioxide 29.0 Anion Gap 9 BUN 9 Creatinine 0.65 Estim Creat Clear Calc 78.04 Est GFR (MDRD) Af Amer 119 Est GFR (MDRD) Non-Af 99 BUN/Creatinine Ratio 13.8 Glucose 148 H Calcium 9.0 Total Bilirubin 0.60 AST 10 L ALT 11 L Alkaline Phosphatase 107 Total Protein 7.1 Albumin 3.1 L Globulin 4.0 Albumin/Globulin Ratio 0.8 L Lipase 57 L Urine Color Yellow Urine Clarity Clear Urine pH 7.0 Ur Specific [place] 1.005 Urine Protein 30 H Urine Glucose (UA) 50 H Urine Ketones Negative Urine Occult Blood 150 H Urine Nitrite Positive H Urine Bilirubin Negative Urine Urobilinogen 1 H Ur Leukocyte Esterase 100 H Urine RBC 0 SEEN Urine WBC 10-25 SEEN Ur Squamous Epith Cells 0-5 SEEN Urine Bacteria 4+ Urine Mucus 0 SEEN Radiography Diagnostic Testing: Radiology Impression Gallbladder Ultrasound 05/08/21 22:12 IMPRESSION: Nonobstructing right renal calculus. No acute abnormal finding. Hepatic steatosis. Electronically Signed: Tavo Sauer MD at 23:39 EDT Tel , Service support , Discharge Plan Triage Chief Complaint: Flank Pain ED Provider: Long Bagley Dx/Rx/DC Orders Clinical Impression: Acute upper abdominal pain, Acute hypokalemia Prescriptions: No Action atorvastatin 20 MG tablet 40 mg PO QHS RF: 0 lisinopril-hydrochlorothiazide 1 EACH tablet 1 tab PO DAILY RF: 0 sertraline 100 MG tablet 100 mg PO DAILY RF: 0 trazodone 100 MG tablet 100 mg PO QHS RF: 0 metformin 500 mg tablet extended release 24 hr 1,000 mg PO BID RF: 0 insulin aspart U-100 100 unit/mL (3 mL) insulin pen 5 unit SUBCUT TID RF: 0 Lantus Solostar U-100 Insulin 100 unit/mL (3 mL) insulin pen 30 unit SUBCUT BREAKFAST RF: 0 pantoprazole [Protonix] 40 mg tablet,delayed release (DR/EC) 40 mg PO DAILY Qty: 30 RF: 0 sucralfate [Carafate] 1 gram tablet 1 g PO BID 14 Days Qty: 28 RF: 0 Primary Care Provider: Zachary Toney Referrals: Zachary Toney MD [Primary Care Provider] - Disposition Disposition: [facility]
[2021-05-09] MEDS: Ceftriaxone 1 GM/50 ML BAG IV ×2 (01:48→21:10)
--- NOTE | 2021-05-09 01:59 | HP.PCM_ITS ---
Documented by User: SIMA Galarza 05/09/21 02:12 HPI - General General Date of Admission: 05/09/21 Date of Service: 05/09/21 Chief Complaint: Right flank pain HPI Narrative LELAND SIMMONS, is a 60 F who presents with right flank pain and right sided abdominal pain. Patient has chronic abdominal pain with a history of pancreatitis. Patient states that she has had decreased appetite. Patient also reports dysuria. patient denies fevers, chills, shortness of breath, chest pain, cough, nausea, vomiting, diarrhea, constipation. [facility] Medical History DM type 2 (diabetes mellitus, type 2) GERD (gastroesophageal reflux disease) HTN (hypertension) Hyperlipidemia Home Medications atorvastatin 40 mg PO QHS 09/22/19 [History Last Taken 09/21/19] lisinopril-hydrochlorothiazide 1 tab PO DAILY 09/22/19 [History Last Taken 09/21/19] sertraline 100 mg PO DAILY 09/22/19 [History Last Taken 09/21/19] trazodone 100 mg PO QHS 09/22/19 [History Last Taken 09/21/19] metformin 500 mg tablet,extended release 24 hr 1,000 mg PO BID tab 08/12/20 [History Last Taken Unknown] insulin aspart U-100 6 unit SUBCUT TID 04/09/21 [History Last Taken Unknown] insulin glargine [Lantus Solostar U-100 Insulin] 34 unit SUBCUT BREAKFAST 04/09/21 [History Last Taken Unknown] pantoprazole [Protonix] 40 mg PO DAILY #30 tab 04/09/21 [Rx Last Taken Unknown] Allergy/AdvReac Type Severity Reaction Status Date / Time simvastatin [From Zocor] Allergy Swelling Verified 05/08/21 21:15 Sulfa (Sulfonamide Allergy Swelling Verified 05/08/21 21:15 Antibiotics) Family History Mother Hypertension Lupus Glaucoma Arthritis Neuropathy Brother Diabetes Hypertension Hyperlipemia Surgical History H/O foot surgery h/o left hand surgery History of hip surgery History of hysterectomy History of left knee surgery History of rotator cuff surgery Social History household members: other details: daughter housing: house Smoking Status: Former smoker Tobacco: How many years used: 35 alcohol intake: never what type of physical activity do you participate in: none do you feel safe at home: Yes ROS Constitutional Constitutional: Denies anorexia, chills, fatigue, fever(s), malaise or weakness Cardiovascular Cardiovascular: Denies chest pain, edema or palpitations Respiratory/Chest Respiratory/Chest: Denies cough, shortness of breath at rest or shortness of breath with exertion Gastrointestinal Gastrointestinal: Reports abdominal pain; Denies constipation, diarrhea, nausea or vomiting Genitourinary Genitourinary: Reports dysuria and flank pain; Denies hematuria Musculoskeletal Musculoskeletal: Denies back pain, extremity pain, joint pain or joint stiffness Integumentary Integumentary: Denies dry skin Neurologic Neurologic: Denies abnormal gait, abnormal speech, confusion or dizziness Psychiatric Psychiatric: Denies anxiety or depression Endocrine Endocrinology: Denies change in body appearance Hematologic/Lymphatic Hematologic/Lymphatic: Denies anemia, easy bleeding or easy bruising Vital Signs Vital Signs Vital Signs: 05/08/21 21:13 05/08/21 21:15 05/08/21 22:50 Temperature 97.3 F L 97.3 F L Temperature Source Temporal Temporal Pulse Rate 87 87 Respiratory Rate 16 16 Respiratory Effort Normal Non-Labored Respiratory Pattern Normal Blood Pressure 160/94 H 160/94 H Blood Pressure Mean 116 116 Pulse Ox 96 96 Oxygen Delivery Method Room Air Room Air 05/08/21 23:15 05/09/21 00:42 Temperature 97.6 F L 97.6 F L Temperature Source Oral Oral Pulse Rate 79 78 Respiratory Rate 15 16 Respiratory Effort Respiratory Pattern Blood Pressure 145/74 H 149/75 H Blood Pressure Mean 97 99 Pulse Ox 98 98 Oxygen Delivery Method Room Air Room Air Weight Weight: 145 lb Body Mass Index (BMI) 25.7 Physical Exam Const alert, oriented x3 and no apparent distress General Appearance: cooperative HEENT normocephalic and head/scalp atraumatic Eyes conjunctivae normal and no scleral icterus Neck supple and no JVD General: trachea midline Resp normal respiratory effort, normal air movement and clear to auscultation bilaterally Cardio regular rate, regular rhythm, S1 normal heart sound, S2 normal heart sound and peripheral pulses 2+ throughout GI normal to inspection, nondistended, normoactive bowel sounds and soft to palpation GI Narrative: Right flank pain tender with palpation however patient states much improved from previous Palpation: tender RUQ Extremity normal capillary refill and no clubbing, cyanosis or edema General Extremity: no tenderness to palpation of joints or extremities Skin General Skin Exam: no breakdown and turgor normal Lesions: no lesions Rashes: no rashes Neuro no focal motor deficits and no sensory deficits noted Speech: speech normal Motor Exam: Negative for general weakness Psych thought process normal, cooperative and affect normal Appearance: appropriate Results Lab / Micro Data Result Diagrams: 05/08/21 22:45 05/08/21 22:45 Labs: Laboratory Results - last 24 hr 05/08/21 22:45: WBC 13.2 H, RBC 4.22, Hgb 12.3, Hct 35.5 L, MCV 84.1, MCH 29.1, MCHC 34.6, RDW Std Deviation 36.2, RDW Coeff of [place]eline 11.9, Plt Count 370, MPV 10.1, Immature Gran % (Auto) 0.400, Neut % (Auto) 75.2 H, Lymph % (Auto) 16.1 L, [place] % (Auto) 7.2, Eos % (Auto) 0.6, Baso % (Auto) 0.5, Absolute Neuts (auto) 9.9 H, Absolute Lymphs (auto) 2.12, Nucleated RBC % 0 05/08/21 22:45: Sodium 135 L, Potassium 2.1 L*, Chloride 97 L, Carbon Dioxide 29.0, Anion Gap 9, BUN 9, Creatinine 0.65, Estim Creat Clear Calc 78.04, Est GFR (MDRD) Af Amer 119, Est GFR (MDRD) Non-Af 99, BUN/Creatinine Ratio 13.8, Glucose 148 H, Calcium 9.0, Total Bilirubin 0.60, AST 10 L, ALT 11 L, Alkaline Ph osphatase 107, Total Protein 7.1, Albumin 3.1 L, Globulin 4.0, Albumin/Globulin Ratio 0.8 L, Lipase 57 L 05/08/21 23:40: Urine Color Yellow, Urine Clarity Clear, Urine pH 7.0, Ur Specific [place] 1.005, Urine Protein 30 H, Urine Glucose (UA) 50 H, Urine Ketones Negative, Urine Occult Blood 150 H, Urine Nitrite Positive H, Urine Bilirubin Negative, Urine Urobilinogen 1 H, Ur Leukocyte Esterase 100 H, Urine RBC 0 SEEN, Urine WBC 10-25 SEEN, Ur Squamous Epith Cells 0-5 SEEN, Urine Bacteria 4+, Urine Mucus 0 SEEN Radiology Impression Gallbladder Ultrasound 05/08/21 22:12 IMPRESSION: Nonobstructing right renal calculus. No acute abnormal finding. Hepatic steatosis. Electronically Signed: Tavo Sauer MD at 23:39 EDT Tel , Service support , Abdomen/Pelvis CT 05/08/21 23:46 IMPRESSION: Mild right hydroureteronephrosis and perinephric fat stranding without finding of urinary obstruction may represent recently passed urinary calculus. Electronically Signed: Tavo Sauer MD at 0:35 EDT Tel , Service support , Assessment & Plan Assessment/Plan (1) Acute hypokalemia: (2) Acute right flank pain: PLAN: 1. Acute hypokalemia -Admit to PCU for cardiac monitoring -CBC and BMP ordered for a.m., obtain magnesium level -Hold lisinopril hydrochlorothiazide -Patient received potassium chloride 20 mEq IV as well as 60 mEq p.o. -Vital signs per protocol 2. Acute right flank pain -Per CT report mild right hydroureteronephrosis and perinephric fat stranding without finding of urinary obstruction may represent recently passed urinary calculus. -Patient received morphine and ketorolac in ER which was effective for pain management -Urinalysis positive nitrates, positive blood, leukocyte Estrace 100, urine with WBCs 10-25 seen. Will start ceftriaxone. 3. Diabetes mellitus type 2 -Hold Metformin, continue home dose Lantus and insulin aspart -AC at bedtime blood sugars with sliding scale insulin ordered Will continue all other home medications for patient chronic diseases including depression, hyperlipidemia and GERD DVT prophylaxis-subcu Lovenox This patient was seen by SIMA Galarza under the supervision of Dr. Velasco. Documented by User: Dr. Alexandre Velasco MD 05/09/21 02:43 HPI - General General Date of Admission: 05/09/21 [facility] Medical History DM type 2 (diabetes mellitus, type 2) GERD (gastroesophageal reflux disease) HTN (hypertension) Hyperlipidemia Home Medications atorvastatin 40 mg PO QHS 09/22/19 [History Last Taken 09/21/19] lisinopril-hydrochlorothiazide 1 tab PO DAILY 09/22/19 [History Last Taken 09/21/19] sertraline 100 mg PO DAILY 09/22/19 [History Last Taken 09/21/19] trazodone 100 mg PO QHS 09/22/19 [History Last Taken 09/21/19] metformin 500 mg tablet,extended release 24 hr 1,000 mg PO BID tab 08/12/20 [History Last Taken Unknown] insulin aspart U-100 6 unit SUBCUT TID 04/09/21 [History Last Taken Unknown] insulin glargine [Lantus Solostar U-100 Insulin] 34 unit SUBCUT BREAKFAST 04/09/21 [History Last Taken Unknown] pantoprazole [Protonix] 40 mg PO DAILY #30 tab 04/09/21 [Rx Last Taken Unknown] Allergy/AdvReac Type Severity Reaction Status Date / Time simvastatin [From Zocor] Allergy Swelling Verified 05/08/21 21:15 Sulfa (Sulfonamide Allergy Swelling Verified 05/08/21 21:15 Antibiotics) Family History Mother Hypertension Lupus Glaucoma Arthritis Neuropathy Brother Diabetes Hypertension Hyperlipemia Surgical History H/O foot surgery h/o left hand surgery History of hip surgery History of hysterectomy History of left knee surgery History of rotator cuff surgery Social History household members: other details: daughter housing: house Smoking Status: Former smoker Tobacco: How many years used: 35 alcohol intake: never what type of physical activity do you participate in: none do you feel safe at home: Yes Results Lab / Micro Data Result Diagrams: 05/08/21 22:45 05/08/21 22:45 Charges/Coding Addendum Addendum: Dr. Velasco: I personally reviewed the chart and examined the patient, and agree with the above findings. 60-year-old female presents to the hospital with right-sided flank pain. It does appear that she had passed a kidney stone as there is no ra diolucency on CT scan. She is having any UTI as well as her Rocephin by the ED physician and a urine culture was obtained. We will continue with the Rocephin. She was also found to have severe hypokalemia with potassium of 2.1. This is been replaced and will recheck in a few hours, also obtain a magnesium. Visit Charges Inpatient E&M: 42664 Init Hosp L2
[2021-05-09] MEDS: Sucralfate 1 GM Tablet PO ×2 (03:53→16:39)
[2021-05-09 04:05] LABS: Magnesium 1.3 mg/dL (1.6-2.6)
[2021-05-09] MEDS: Magnesium Sulfate 4gm/100mL 4 GM/100 ML IV.SOLN. IV (04:30)
[2021-05-09 05:20] LABS: Absolute Lymphocyte Count 2.16 X10^3/uL (0.83-4.51); Basophil# 0.06 X10^3/uL; Basophil% 0.6 % (0-1); Eosinophil# 0.13 X10^3/uL; Eosinophils% 1.3 % (0-5); Hematocrit 34.8 % (37-47); Hemoglobin 11.7 g/dL (12.0-15.0); Lymphocyte # 2.16 X10^3/ul (0.83-4.51); Lymphocyte % 20.8 % (19-41); Mean Corp Hgb Conc 33.6 g/dL (32-36); Mean Corpuscular Hgb 29.3 pg (27.0-32.0); Mean Corpuscular Volume 87.2 fL (81-99); Mean Platelet Vol. 9.9 fl (6.2-12.0); Monocyte# 0.99 X10^3/uL; Monocyte% 9.5 % (0-10); NRBC Flagged by Analyzer 0 % (0-5); Neutrophil % 67.5 % (47-70); Platelet Count 320 K/mm3 (150-450); RBC Distribution Width SD 38.9 fl (35.1-43.9); Red Blood Count 3.99 M/mm3 (4.2-5.4); White Blood Count 10.4 K/mm3 (4.4-11.0)
[2021-05-09 05:50] LABS: Anion Gap 7 (5-15); BUN 9 mg/dL (7-18); BUN/Creat Ratio 15.3 RATIO (10-20); Calcium,Total 8.2 mg/dL (8.5-10.1); Chloride 98 mmol/L (98-107); Creatinine, Serum 0.59 mg/dL (0.55-1.02); EST Glomerular Filtration Rate 111 mL/min (>60); Est Glom Filt Rate - Afr Amer 134 mL/min (>60); Estimated Creatinine Clearance 85.98 ml/min; Glucose 105 mg/dL (74-106); Potassium 2.7 mmol/L (3.5-5.1); Sodium Level 137 mmol/L (136-145)
[2021-05-09] MEDS: Potassium Chloride Oral Tablet 20 MEQ 60 MEQ PO (07:55)
[2021-05-09] MEDS: Sertraline 100 MG Tablet PO (07:56)
[2021-05-09] MEDS: Pantoprazole Sodium 40 MG Tablet PO (07:56)
[2021-05-09] MEDS: Enoxaparin 40 MG/0.4 ML Syringe SC (07:56)
[2021-05-09 09:00] LABS: Bedside Glucose 119 mg/dL (70-110)
[2021-05-09 09:19] LABS: Phosphorus 3.9 mg/dL (2.5-4.9)
[2021-05-09] MEDS: Insulin Lispro 100 UNIT/ML INSULN.PEN SC ×5 (09:21→21:11)
[2021-05-09 12:21] LABS: Bedside Glucose 136 mg/dL (70-110)
[2021-05-09] MEDS: Acetaminophen 325 MG Tablet 650 MG PO (14:00)
--- NOTE | 2021-05-09 15:26 | PN.HOSP_ITS ---
Subjective Subjective Patient stated she has right-sided flank pain for many months 3 to 4 months but got exacerbated yesterday with nausea and vomiting. Mild low-grade fever at home but temperature charting here he is afebrile. Pain is controlled. Objective Data Objective Data Vital Signs: Vital Signs Temp Pulse Resp BP Pulse Ox 97.4 F L 69 19 H 104/81 H 97 05/09/21 08:21 05/09/21 08:21 05/09/21 08:21 05/09/21 08:21 05/09/21 08:21 Oxygen Delivery Method Room Air Weight: 145 lb Body Mass Index (BMI) 25.7 Intake & Output: Intake and Output for Last 24 Hours 05/07/21 05/08/21 05/09/21 23:59 23:59 23:59 Intake Total 533.33 / 533.33 Balance 533.33 / 533.33 Lab / Micro Data Result Diagrams: 05/09/21 04:56 05/09/21 04:56 Labs: Laboratory Results - last 24 hr 05/08/21 22:45: WBC 13.2 H, RBC 4.22, Hgb 12.3, Hct 35.5 L, MCV 84.1, MCH 29.1, MCHC 34.6, RDW Std Deviation 36.2, RDW Coeff of [place]eline 11.9, Plt Count 370, MPV 10. 1, Immature Gran % (Auto) 0.400, Neut % (Auto) 75.2 H, Lymph % (Auto) 16.1 L, [place] % (Auto) 7.2, Eos % (Auto) 0.6, Baso % (Auto) 0.5, Absolute Neuts (auto) 9.9 H, Absolute Lymphs (auto) 2.12, Nucleated RBC % 0 05/08/21 22:45: Sodium 135 L, Potassium 2.1 L*, Chloride 97 L, Carbon Dioxide 29.0, Anion Gap 9, BUN 9, Creatinine 0.65, Estim Creat Clear Calc 78.04, Est GFR (MDRD) Af Amer 119, Est GFR (MDRD) Non-Af 99, BUN/Creatinine Ratio 13.8, Glucose 148 H, Calcium 9.0, Total Bilirubin 0.60, AST 10 L, ALT 11 L, Alkaline Phosphatase 107, Total Protein 7.1, Albumin 3.1 L, Globulin 4.0, Albumin/Globulin Ratio 0.8 L, Lipase 57 L 05/08/21 22:45: Magnesium 1.3 L 05/08/21 23:40: Urine Color Yellow, Urine Clarity Clear, Urine pH 7.0, Ur Specific [place] 1.005, Urine Protein 30 H, Urine Glucose (UA) 50 H, Urine Ketones Negative, Urine Occult Blood 150 H, Urine Nitrite Positive H, Urine Bilirubin Negative, Urine Urobilinogen 1 H, Ur Leukocyte Esterase 100 H, Urine RBC 0 SEEN, Urine WBC 10-25 SEEN, Ur Squamous Epith Cells 0-5 SEEN, Urine Bacteria 4+, Urine Mucus 0 SEEN 05/09/21 04:56: WBC 10.4, RBC 3.99 L, Hgb 11.7 L, Hct 34.8 L, MCV 87.2, MCH 2 9.3, MCHC 33.6, RDW Std Deviation 38.9, RDW Coeff of [place]eline 12.0, Plt Count 320, MPV 9.9, Immature Gran % (Auto) 0.300, Neut % (Auto) 67.5, Lymph % (Auto) 20.8, [place] % (Auto) 9.5, Eos % (Auto) 1.3, Baso % (Auto) 0.6, Absolute Neuts (auto) 7.0, Absolute Lymphs (auto) 2.16, Nucleated RBC % 0 05/09/21 04:56: Sodium 137, Potassium 2.7 L*, Chloride 98, Carbon Dioxide 32.0, Anion Gap 7, BUN 9, Creatinine 0.59, Estim Creat Clear Calc 85.98, Est GFR (MDRD) Af Amer 134, Est GFR (MDRD) Non-Af 111, BUN/Creatinine Ratio 15.3, Glucose 105, Calcium 8.2 L 05/09/21 04:56: Phosphorus 3.9 05/09/21 07:49: POC Glucose 119 H 05/09/21 12:14: POC Glucose 136 H Radiography Diagnostic Testing: Radiology Impression Gallbladder Ultrasound 05/08/21 22:12 IMPRESSION: Nonobstructing right renal calculus. No acute abnormal finding. Hepatic steatosis. Electronically Signed: Tavo Sauer MD at 23:39 EDT Tel , Service support , Abdomen/Pelvis CT 05/08/21 23:46 IMPRESSION: Mild right hydroureteronephrosis and perinephric fat stranding without finding of urinary obstruction may represent recently passed urinary calculus. Electronically Signed: Tavo Sauer MD at 0:35 EDT Tel , Service support , Physical Exam Narrative Physical exam General: Alert, Oriented x3, Cooperative HEENT: Atraumatic, PERRLA, EOMI, Normocephalic Oral: No Gingival or Mucosal Lesions/ Ulcerations Neck: Supple, No JVD, Negative Carotid Bruits Lungs: Air entry diminished in bilateral lung bases. No crepitation/rhonchi Cardiovascular: Regular rate, Regular Rhythm, Normal S1, Normal S2, No murmurs Abdomen: Bowel Sounds Present, Soft, Non Tender, Non-Distended : Mild tenderness on right renal angle and flank. No renal angle tenderness. No suprapubic tenderness. Extremities: No edema, Capillary Refill Less than 3 Seconds Skin: No rashes, No breakdown Musculoskeletal: No Tenderness to Palpation of Joints or Extremities Neurological: Cranial nerves II-XII grossly intact, DTR 2+/4 and Symmetrical, Neuro grossly intact Psych/Mental Status: Normal Affect, Appropriate. Assessment & Plan Assessment/Plan (1) Acute right flank pain: (2) Acute hypokalemia: PLAN: This 10-year-old female admitted with ongoing right flank pain, acute on chronic for several months. 1. Acute right flank pain probably passed kidney stone: Patient had CT abdomen which reported mild right hydroureteronephrosis and mild perinephric fatty stranding. Discussed with urologist. Urine culture pending. Continue IV antibiotics. Continue pain management -Urinalysis positive nitrates, positive blood, leukocyte Estrace 100, urine with WBCs 10-25 seen. 1. Acute hypokalemia and hypomagnesemia: Potassium magnesium is replaced. We will recheck the level. On cardiac nurse. Lisinopril hydrochlorothiazide on hold. On IV KCl and oral KCl. 3. Diabetes mellitus type 2: Metformin on hold. Decreasing incarcerated block sliding scale and home dose of Lantus insulin as per continued. Other chronic diseases including depression, hyperlipidemia and GERD DVT prophylaxis-subcu Lovenox Charges/Coding Visit Charges Inpatient E&M: 52621 Subs Hosp L2
--- NOTE | 2021-05-09 15:38 | NURSING ---
0830 PT IN BED REPORTED FEELING BETTER. ASSISTED IN ORDERING BREAKFAST. PT WITH NO RT FLANK PAIN AT THIS TIME. AWARE OF NEW CONSULT FOR UROLOGIST. PT UP TO BR INDEPENDENTLY WHEN NEEDED. DENIES ANY NEEDS AT THIS TIME.
--- NOTE | 2021-05-09 16:03 | NURSING ---
1400-rt flank pain coming back per pt report. a 03/08 now. tylenol given and pt informed that had to call nurse in an hour if needing anything more.
--- NOTE | 2021-05-09 16:27 | PCM.CONS.GEN ---
Assessment & Plan Assessment/Plan (1) Acute right flank pain: (2) Acute upper abdominal pain: (3) Bacteriuria: (4) Nausea: (5) Diarrhea: PLAN: Antibiotics, urine culture Outpatient evaluation and management of her lower urinary tract symptoms Plan for repeat imaging in the outpatient setting for further evaluation of the possibility of stones Recommend continued gastroenterology evaluation and management of her nausea and diarrhea I gave the patient my card and she will follow up with me in the office approximately 1 week after discharge HPI Consult Data Date of Consult: 05/09/21 HPI Narrative HPI Narrative: LELAND SIMMONS, is a 60 F who presented to the emergency room with complaints of right sided pain. She is a diabetic. She has had months of nausea, recurrent diarrhea and weight loss. She has undergone upper and lower endoscopy as well as been evaluated with a swallow study. She reports that all of the testing she has had done has come back normal. She is working with her regular doctor to remove as many medications as possible. She has not had any dietary evaluation and we did discuss that perhaps a GI evaluation would be beneficial and may be eliminating things such as gluten etc. From a urology standpoint, she has had no hematuria, no dysuria, no history of kidney stones. She does have stress incontinence and urge incontinence. She feels that she does go frequently. We discussed that we will further evaluate and treat this in the outpatient setting and she is agreeable to this plan. We discussed that the CT was done with intravenous contrast and it reveals no evidence of mass, no significant obstruction. We can consider follow-up imaging to further evaluate without contrast to look for calcifications and to ensure that her mild hydronephrosis resolves. COUNT INCLUDES THE [facility] Medical History (Updated 05/09/21 @ 16:[address] Tiara Up MD) Bacteriuria Diarrhea DM type 2 (diabetes mellitus, type 2) GERD (gastroesophageal reflux disease) HTN (hypertension) Hyperlipidemia Nausea Home Medications atorvastatin 40 mg PO QHS 09/22/19 [History Last Taken 09/21/19] lisinopril-hydrochlorothiazide 1 tab PO DAILY 09/22/19 [History Last Taken 09/21/19] sertraline 100 mg PO DAILY 09/22/19 [History Last Taken 09/21/19] trazodone 100 mg PO QHS 09/22/19 [History Last Taken 09/21/19] metformin 500 mg tablet,extended release 24 hr 1,000 mg PO BID tab 08/12/20 [History Last Taken Unknown] insulin aspart U-100 6 unit SUBCUT TID 04/09/21 [History Last Taken Unknown] insulin glargine [Lantus Solostar U-100 Insulin] 34 unit SUBCUT BREAKFAST 04/09/21 [History Last Taken Unknown] pantoprazole [Protonix] 40 mg PO DAILY #30 tab 04/09/21 [Rx Last Taken Unknown] Allergy/AdvReac Type Severity Reaction Status Date / Time simvastatin [From Zocor] Allergy Swelling Verified 05/08/21 21:15 Sulfa (Sulfonamide Allergy Swelling Verified 05/08/21 21:15 Antibiotics) Family History Mother Hypertension Lupus Glaucoma Arthritis Neuropathy Brother Diabetes Hypertension Hyperlipemia Surgical History H/O foot surgery h/o left hand surgery History of hip surgery History of hysterectomy History of left knee surgery History of rotator cuff surgery Social History household members: other details: daughter housing: house Smoking Status: Former smoker Tobacco: How many years used: 35 alcohol intake: never what type of physical activity do you participate in: none do you feel safe at home: Yes ROS ROS Narrative The review of systems is positive for nausea, diarrhea, weight loss. She has had no chest pain, shortness of breath. No skin changes. We discussed in the HPI her genitourinary review of systems. No other review of systems were contributory. Physical Exam Const alert, oriented x3 and no apparent distress HEENT normocephalic and head/scalp atraumatic Chest inspection of chest normal Chest: symmetrical chest wall rise Resp normal respiratory effort, normal air movement and no retractions Cardio regular rate Narrative: No catheter Extremity normal to inspection Neuro oriented x3, CN's II-XII intact bilaterally and moves all extremities Psych mental status grossly normal, thought process normal, cooperative and affect normal Lab / Micro Data Result Diagrams: 05/09/21 04:56 05/09/21 04:56 Labs: Laboratory Results - last 24 hr 05/08/21 22:45: WBC 13.2 H, RBC 4.22, Hgb 12.3, Hct 35.5 L, MCV 84.1, MCH 29.1, MCHC 34.6, RDW Std Deviation 36.2, RDW Coeff of Celine 11.9, Plt Count 370, MPV 10.1, Immature Gran % (Auto) 0.400, Neut % (Auto) 75.2 H, Lymph % (Auto) 16.1 L, Leslie % (Auto) 7.2, Eos % (Auto) 0.6, Baso % (Auto) 0.5, Absolute Neuts (auto) 9.9 H, Absolute Lymphs (auto) 2.12, Nucleated RBC % 0 05/08/21 22:45: Sodium 135 L, Potassium 2.1 L*, Chloride 97 L, Carbon Dioxide 29.0, Anion Gap 9, BUN 9, Creatinine 0.65, Estim Creat Clear Calc 78.04, Est GFR (MDRD) Af Amer 119, Est GFR (MDRD) Non-Af 99, BUN/Creatinine Ratio 13.8, Glucose 148 H, Calcium 9.0, Total Bilirubin 0.60, AST 10 L, ALT 11 L, Alkaline Phosphatase 107, Total Protein 7.1, Albumin 3.1 L, Globulin 4.0, Albumin/Globulin Ratio 0.8 L, Lipase 57 L 05/08/21 22:45: Magnesium 1.3 L 05/08/21 23:40: Urine Color Yellow, Urine Clarity Clear, Urine pH 7.0, Ur Specific [place] 1.005, Urine Protein 30 H, Urine Glucose (UA) 50 H, Urine Ketones Negative, Urine Occult Blood 150 H, Urine Nitrite Positive H, Urine Bilirubin Negative, Urine Urobilinogen 1 H, Ur Leukocyte Esterase 100 H, Urine RBC 0 SEEN, Urine WBC 10-25 SEEN, Ur Squamous Epith Cells 0-5 SEEN, Urine Bacteria 4+, Urine Mucus 0 SEEN 05/09/21 04:56: WBC 10.4, RBC 3.99 L, Hgb 11.7 L, Hct 34.8 L, MCV 87.2, MCH 29.3, MCHC 33.6, RDW Std Deviation 38.9, RDW Coeff of Celine 12.0, Plt Count 320, MPV 9.9, Immature Gran % (Auto) 0.300, Neut % (Auto) 67.5, Lymph % (Auto) 20.8, Leslie % (Auto) 9.5, Eos % (Auto) 1.3, Baso % (Auto) 0.6, Absolute Neuts (auto) 7.0, Absolute Lymphs (auto) 2.16, Nucleated RBC % 0 05/09/21 04:56: Sodium 137, Potassium 2.7 L*, Chloride 98, Carbon Dioxide 32.0, Anion Gap 7, BUN 9, Creatinine 0.59, Estim Creat Clear Calc 85.98, Est GFR (MDRD) Af Amer 134, Est GFR (MDRD) Non-Af 111, BUN/Creatinine Ratio 15.3, Glucose 105, Calcium 8.2 L 05/09/21 04:56: Phosphorus 3.9 05/09/21 07:49: POC Glucose 119 H 05/09/21 12:14: POC Glucose 136 H Radiology Impression Gallbladder Ultrasound 05/08/21 22:12 IMPRESSION: Nonobstructing right renal calculus. No acute abnormal finding. Hepatic steatosis. Electronically Signed: Tavo Sauer MD at 23:39 EDT Tel , Service support , Abdomen/Pelvis CT 05/08/21 23:46 IMPRESSION: Mild right hydroureteronephrosis and perinephric fat stranding without finding of urinary obstruction may represent recently passed urinary calculus. Electronically Signed: Tavo Sauer MD at 0:35 EDT Tel , Service support ,
[2021-05-09 16:46] LABS: Bedside Glucose 191 mg/dL (70-110)
[2021-05-09 16:47] LABS: Anion Gap 4 (5-15); BUN 7 mg/dL (7-18); BUN/Creat Ratio 11.3 RATIO (10-20); Calcium,Total 8.7 mg/dL (8.5-10.1); Chloride 103 mmol/L (98-107); Creatinine, Serum 0.62 mg/dL (0.55-1.02); EST Glomerular Filtration Rate 104 mL/min (>60); Est Glom Filt Rate - Afr Amer 126 mL/min (>60); Estimated Creatinine Clearance 81.82 ml/min; Glucose 162 mg/dL (74-106); Magnesium 2.6 mg/dL (1.6-2.6); Sodium Level 137 mmol/L (136-145)
--- NOTE | 2021-05-09 18:46 | NURSING ---
1800-pt transferred to pcu as bed available. handoff completed and all belongings packed and with pt.
[2021-05-09] MEDS: traZODone 100 MG Tablet PO (21:10)
[2021-05-09] MEDS: Atorvastatin Calcium 40 MG Tablet PO (21:10)
[2021-05-09 21:30] LABS: Bedside Glucose 153 mg/dL (70-110)
[2021-05-10 02:53] VITALS: BP 139/70; PULSE 69; RESP 18; TEMP 36.8; O2SAT 96
--- NOTE | 2021-05-10 03:04 | NURSING ---
Emergency documentation
[2021-05-10 03:31] VITALS: PULSE 70
[2021-05-10] MEDS: Sucralfate 1 GM Tablet PO (06:13)
[2021-05-10 07:48] LABS: Anion Gap 6 (5-15); BUN 7 mg/dL (7-18); BUN/Creat Ratio 12.3 RATIO (10-20); Chloride 105 mmol/L (98-107); Creatinine, Serum 0.57 mg/dL (0.55-1.02); EST Glomerular Filtration Rate 116 mL/min (>60); Est Glom Filt Rate - Afr Amer 140 mL/min (>60); Estimated Creatinine Clearance 88.99 ml/min; Glucose 160 mg/dL (74-106); Potassium 3.3 mmol/L (3.5-5.1); Sodium Level 141 mmol/L (136-145)
[2021-05-10 08:00] VITALS: PULSE 63
[2021-05-10 08:25] VITALS: BP 126/75; PULSE 58; RESP 16; TEMP 36.6; O2SAT 98
[2021-05-10] MEDS: Insulin Lispro 100 UNIT/ML INSULN.PEN SC ×4 (08:28→11:45)
[2021-05-10] MEDS: Enoxaparin 40 MG/0.4 ML Syringe SC (08:30)
[2021-05-10] MEDS: Sertraline 100 MG Tablet PO (08:30)
[2021-05-10] MEDS: Pantoprazole Sodium 40 MG Tablet PO (08:30)
[2021-05-10 08:36] LABS: Bedside Glucose 175 mg/dL (70-110)
--- NOTE | 2021-05-10 10:12 | PCM.DC ---
Discharge Instructions Diet Discharge Diet: 2000 mg Sodium Diet Activity Discharge Activity: Return to Normal Activity and May Not Drive Weight Bearing Status: Weight bearing as tolerated Dressing / Incision Call your doctor if you observe: Fever of 101 or Higher, Coldness, Increased Pain, Numbness or Tingling, Change in Color, Inability to urinate, Inability to have a bowel movement, Shortness of breath, Dizziness, Fainting spells, Swelling in the ankles, Chest pain, Prolonged hiccupping, Increased palpitations (irregular heartbeat), Calf discomfort and Uncontrolled pain Follow Up Care Test Results: Test results from this visit will be discussed in further detail at your follow-up appointment, if applicable. Discharge Plan Admission Admit Date/Time: 05/09/21 01:55 Primary Reason for Your Visit: Right flank pain with UTI Attending Provider: Moiz Pineda Primary Care Provider: Zachary Toney Consulting Providers: Tiara Up Discharge Orders/Prescriptions Prescriptions: New ciprofloxacin HCl [Cipro] 500 mg tablet 500 mg PO BID Qty: 14 RF: 0 Continued atorvastatin 20 MG tablet 40 mg PO QHS RF: 0 lisinopril-hydrochlorothiazide 1 EACH tablet 1 tab PO DAILY RF: 0 sertraline 100 MG tablet 100 mg PO DAILY RF: 0 insulin aspart U-100 100 unit/mL (3 mL) insulin pen 6 unit SUBCUT TID RF: 0 Lantus Solostar U-100 Insulin 100 unit/mL (3 mL) insulin pen 34 unit SUBCUT BREAKFAST RF: 0 pantoprazole [Protonix] 40 mg tablet,delayed release (DR/EC) 40 mg PO DAILY Qty: 30 RF: 0 trazodone 100 MG tablet 100 mg PO QHS Qty: 0 RF: 0 Discontinued metformin 500 mg tablet extended release 24 hr 1,000 mg PO BID RF: 0 Referrals / Follow Up: Zachary Toney MD [Primary Care Provider] - In 1 Week Tiara Up MD [STAFF PHYSICIAN] - Within 2 Weeks (For mild left hydronephrosis and pyelonephritis) Disposition Disposition (needs filled in before D/C Order can be placed): Home, Self Care
--- NOTE | 2021-05-10 10:20 | PCM.DC.SUM ---
Providers Date of Admission: 05/09/21 Primary Care Physician: Dr. Zachary Toney MD Consultations 05/09/21 08:41 Consult: Urology Routine Consulting Provider: Tiara Up Reason for Consult: Right hydroureteronephrosis, doesn't see stone. EMERGENT Consult: No MD Notified: Yes Date Notified: 05/09/21 Time Notified: 08:42 Method of Notification: Answering Service Reason For Visit: SEVERE HYPOKALEMIA & UTI Diagnosis Discharge Diagnosis (1) Acute right flank pain: Status: Acute Code(s): R10.9 - Unspecified abdominal pain (2) Acute upper abdominal pain: Status: Acute Code(s): R10.10 - Upper abdominal pain, unspecified (3) Bacteriuria: Status: Acute Code(s): R82.71 - Bacteriuria (4) Nausea: Status: Acute Code(s): R11.0 - Nausea (5) Diarrhea: Status: Acute Code(s): R19.7 - Diarrhea, unspecified Medications at Discharge Home Medications atorvastatin 40 mg PO QHS 09/22/19 lisinopril-hydrochlorothiazide 1 tab PO DAILY 09/22/19 sertraline 100 mg PO DAILY 09/22/19 Lantus Solostar U-100 Insulin 34 unit SUBCUT BREAKFAST 04/09/21 insulin aspart U-100 6 unit SUBCUT TID 04/09/21 pantoprazole [Protonix] 40 mg PO DAILY #30 tab 04/09/21 ciprofloxacin HCl [Cipro] 500 mg PO BID #14 tab 05/10/21 trazodone 100 mg PO QHS #0 tab 05/10/21 Hospital Course Summary of Care Provided Hospital Course: This 60-year-old female admitted with ongoing right flank pain, acute on chronic for several months. 1. Acute right flank pain probably passed kidney stone: Patient had CT abdomen which reported mild right hydroureteronephrosis and mild perinephric fatty stranding. Discussed with urologist. Urine culture pending. Continue IV antibiotics. Continue pain management.-Urinalysis positive nitrates, positive blood, leukocyte Estrace 100, urine with WBCs 10-25 seen. 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 Patient is discharged home Cipro 500 mg p.o. twice daily for 7 more days and advised to hold sertraline and trazodone to avoid QTC prolongation for 7 days. 1. Acute hypokalemia and hypomagnesemia: Potassium magnesium and potassium was replaced. We will recheck the level. On equipment monitor phototypesetting. Lisinopril hydrochlorothiazide on hold. 3. Diabetes mellitus type 2: Metformin discontinued. Hyperglycemia was managed with sliding scale and home dose of Lantus insulin as per continued. Other chronic diseases including depression, hyperlipidemia and GERD DVT prophylaxis-subcu Lovenox Discharge home and follow-up with PCP and urologist Dr. Up in 2 weeks Discharge medication reconciliation done. Discharge follow-up instructions completed. Discharge process discussed with the patient and all questions were answered to patient's satisfaction. Total time spent, exact 35 minutes on discharge meds reconciliation, examination, coordination of care with nurses and ancillary staff, review of imaging and blood test and discussion with the patient on follow-up instructions Physical Exam Narrative Patient left flank much better. Patient also associated recurrent vomiting and nausea with Metformin and Metformin is discontinued. Patient denies burning micturition but felt mild discomfort on micturition and heaviness. Increased frequency and urgency since developed low-grade tract symptoms. Physical exam General: Alert, Oriented x3, Cooperative HEENT: Atraumatic, PERRLA, EOMI, Normocephalic Oral: No Gingival or Mucosal Lesions/ Ulcerations Neck: Supple, No JVD, Negative Carotid Bruits Lungs: Air entry diminished in bilateral lung bases. No crepitation/rhonchi Cardiovascular: Regular rate, Regular Rhythm, Normal S1, Normal S2, No murmurs Abdomen: Bowel Sounds Present, Soft, Non Tender, Non-Distended : No appreciable tenderness of right renal angle and flank. No suprapubic tenderness. Extremities: No edema, Capillary Refill Less than 3 Seconds Skin: No rashes, No breakdown Musculoskeletal: No Tenderness to Palpation of Joints or Extremities Neurological: Cranial nerves II-XII grossly intact, DTR 2+/4 and Symmetrical, Neuro grossly intact Psych/Mental Status: Normal Affect, Appropriate. Weight / BMI Weight Weight: 146 lb 9.718 oz Body Mass Index (BMI) 25.9 ABG / Lab / Microbiology Data Result Diagrams: 05/09/21 04:56 05/10/21 06:45 Laboratory: Laboratory Results - last 24 hr 05/09/21 12:14: POC Glucose 136 H 05/09/21 15:50: Sodium 137, Potassium 3.0 L, Chloride 103, Carbon Dioxide 30.0, Anion Gap 4 L, BUN 7, Creatinine 0.62, Estim Creat Clear Calc 81.82, Est GFR (MDRD) Af Amer 126, Est GFR (MDRD) Non-Af 104, BUN/Creatinine Ratio 11.3, Glucose 162 H, Calcium 8.7, Magnesium 2.6 05/09/21 16:38: POC Glucose 191 H 05/09/21 21:06: POC Glucose 153 H 05/10/21 06:45: Sodium 141, Potassium 3.3 L, Chloride 105, Carbon Dioxide 30.0, Anion Gap 6, BUN 7, Creatinine 0.57, Estim Creat Clear Calc 88.99, Est GFR (MDRD) Af Amer 140, Est GFR (MDRD) Non-Af 116, BUN/Creatinine Ratio 12.3, Glucose 160 H, Calcium 9.0 05/10/21 08:28: POC Glucose 175 H Microbiology: Microbiology 05/08/21 23:40 Urine, Clean Catch Urine Culture - Preliminary GNR lactose project construction assistant manager D/C Instructions Discharge Diet: 2000 mg Sodium Diet Weight Bearing Status: Weight bearing as tolerated Call your doctor if you observe: Fever of 101 or Higher, Coldness, Increased Pain, Numbness or Tingling, Change in Color, Inability to urinate, Inability to have a bowel movement, Shortness of breath, Dizziness, Fainting spells, Swelling in the ankles, Chest pain, Prolonged hiccupping, Increased palpitations (irregular heartbeat), Calf discomfort and Uncontrolled pain Meaningful Use Info Meaningful Use Diagnoses (Choose all that apply): None applicable Discharge Plan Admission Admit Date/Time: 05/09/21 01:55 Primary Reason for Your Visit: Right flank pain with UTI Attending Provider: Moiz Pineda Primary Care Provider: Zachary Toney Consulting Providers: Tiara Up Discharge Orders/Prescriptions Prescriptions: New ciprofloxacin HCl [Cipro] 500 mg tablet 500 mg PO BID Qty: 14 RF: 0 Continued atorvastatin 20 MG tablet 40 mg PO QHS RF: 0 lisinopril-hydrochlorothiazide 1 EACH tablet 1 tab PO DAILY RF: 0 sertraline 100 MG tablet 100 mg PO DAILY RF: 0 insulin aspart U-100 100 unit/mL (3 mL) insulin pen 6 unit SUBCUT TID RF: 0 Lantus Solostar U-100 Insulin 100 unit/mL (3 mL) insulin pen 34 unit SUBCUT BREAKFAST RF: 0 pantoprazole [Protonix] 40 mg tablet,delayed release (DR/EC) 40 mg PO DAILY Qty: 30 RF: 0 trazodone 100 MG tablet 100 mg PO QHS Qty: 0 RF: 0 Discontinued metformin 500 mg tablet extended release 24 hr 1,000 mg PO BID RF: 0 Referrals / Follow Up: Tiara Up MD [STAFF PHYSICIAN] - Within 2 Weeks (For mild left hydronephrosis and pyelonephritis) Zachary Toney MD [Primary Care Provider] - In 1 Week Disposition Disposition (needs filled in before D/C Order can be placed): Home, Self Care Charges/Coding Visit Charges Inpatient E&M: 85591 Disch Hosp
[2021-05-10 12:00] VITALS: PULSE 63
[2021-05-10 12:01] LABS: Bedside Glucose 172 mg/dL (70-110)
[2021-05-10 14:05] VITALS: BP 134/86; PULSE 70; RESP 18; TEMP 37; O2SAT 99
--- NOTE | 2021-05-13 10:43 | CASEMGMT ---
JOVITA HERNANDEZ Discharge Follow-up Phone Call: STEF: Higinio Strata: 3 Call Date: 05/13/21 Discharge Date: 05/10/21 Time of Call: 1040 Admitting Diagnosis: right flank pain. This JOVITA HERNANDEZ contacted pt via phone in follow-up to her inpt discharge. Pt states she has been doing better since discharge. Pt reports occasional pain but not too bad. Pt states she is continuing to take her antibiotic as prescribed as she wants to get rid of this. Pt states she has set up her follow-up appointments. Pt denies any questions regarding her discharge instructions or other concerns. Ny Duque RN CM
== END 2021-05-10 14:25 | disposition home or self-care (01) | DRG 463 ==
LOC: ED 05-09 00:42 → PCU 05-09 01:59
PROVIDERS: Admitting Provider Family Medicine; Emergency Provider Emergency Medicine; PCP Internal Medicine; Visit Provider Internal Medicine
DX: N39.0 Urinary tract infection, site not specified (principal); E87.6 Hypokalemia; K21.9 Gastro-esophageal reflux disease without esophagitis; E11.65 Type 2 diabetes mellitus with hyperglycemia; I10 Essential (primary) hypertension; E78.5 Hyperlipidemia, unspecified; F32.9 Major depressive disorder, single episode, unspecified; N39.46 Mixed incontinence; Z79.899 Other long term (current) drug therapy; Z79.4 Long term (current) use of insulin; Z87.891 Personal history of nicotine dependence
CPT/HCPCS: 36415; 74177; 76705; 80048; 80053; 81001; 82962; 83690; 83735; 84100; 85025; 87077; 87086; 87088; 87186; 99285; J7030; Q9967; A4216; J2405

== ENCOUNTER 2021-05-28 05:48 | Day surgery (SDC) | payer MEDICAID, SELFPAY ==
[2021-05-28 06:30] VITALS: BP 109/86; PULSE 62; RESP 16; TEMP 36.5; O2SAT 100; BMI 28.3
[2021-05-28] MEDS: Lactated Ringers 1,000 ML 100 ML IV (06:36)
[2021-05-28 06:55] LABS: Bedside Glucose 231 mg/dL (70-110)
--- NOTE | 2021-05-28 07:00 | EGD_PTH ---
PATIENT: LELAND SIMMONS LOC: EN U#:[id number] AGE/SX: 60/F ROOM: RE05/28/[address]: Dr. Felton Brown DO : 1960 BED: DIS: 05/28/2021 SPEC #: [id number] RECD: 05/28/21 09:41 STATUS: NABIL RUTH ANN #: [id number] FERMIN: 05/28/21 07:[address]: Felton Brown DEPT: SURGICAL PATHOLOGY RECD BY: Jese Kumar ENTERED: 05/28/21 12:17 SP TYPE: EGD BIOPSY EVAN DR: Dr. Zachary Toney MD Tissues: A - Gastric mucous membrane B - Duodenum, NOS Procedures: Surgery Specimen Level IV HEADER OPERATION: EGD ([facility]) PRE-OP DIAGNOSIS: Abdomen pain, nausea, vomiting, diarrhea TISSUE SUBMITTED: A ? Gastric antrum biopsy for H. pylori and path, B ? Duodenum biopsy MICROSCOPIC DIAGNOSIS A. Gastric antrum, biopsy: Mild gastritis. See microscopic description and comment. B. Duodenum, biopsy: Fragments of duodenal mucosa with Mary gland hyperplasia and mild congestion. STEFANY:samira 05/29/2021 COMMENT A. The results of immunohistochemistry for Helicobacter pylori will be reported separately ([id number]). MICROSCOPIC DESCRIPTION Slides are reviewed. A. The specimen shows fragments of gastric mucosa with chronic inflammatory cell infiltrates in the lamina propria consisting of lymphocytes and plasma cells, consistent with mild chronic gastritis. GROSS DESCRIPTION A - Received in fixative is one container labeled with the patient's name and designated gastric antrum biopsy. The specimen consists of two irregular fragments of light contreras soft tissue that in aggregate measure 1 x 0.6 x 0.1 cm. The specimen is totally submitted in one cassette. B - Received in fixative is one container labeled with the patient's name and designated duodenal biopsy. The specimen consists of multiple irregular fragments of light contreras soft tissue that in aggregate measure 1 x 0.5 x 0.1 cm. The specimen is totally submitted in one cassette. / AM:samira 05/28/21 TC:3 CPT: 81371 x2
--- NOTE | 2021-05-28 07:00 | IMM_PTH ---
PATIENT: LELAND SIMMONS LOC: EN U#:[id number] AGE/SX: 60/F ROOM: RE05/28/[address]: Dr. Felton Brown DO : 1960 BED: DIS: 05/28/2021 SPEC #: [id number] RECD: 05/28/21 12:18 STATUS: NABIL REMarcie #: [id number] FERMIN: 05/28/21 07:[address]: Felton Brown DEPT: IMMUNOHISTOCHEMISTRY RECD BY: Tahira Jenkins ENTERED: 05/28/21 12:19 SP TYPE: IMMUNO OTHR DR: Dr. Zachary Toney MD Tissues: A - Stomach, NOS Procedures: H Pylori (initial) PHYSICIAN & INSTITUTION [address] [address] SPECIMEN INFORMATION: Tissue Source: A ? Gastric antrum biopsy Clinical Info: Abdomen pain, nausea, vomiting, diarrhea Specimen Number: [id number] CPT code: 92776 METHODOLOGY: Deparaffinized sections of prefer/formalin-fixed tissue or PAP/DQ stained slides are incubated with monoclonal/polyclonal antibodies/oligonucleotide probes. Localization is made via biotin free immunoperoxidase method. Appropriate controls are performed and reacted as expected. Results on target cell population are indicated in the following table: RESULTS: ANTIBODY / CLONE RESULT Block A H Pylori (polyclonal) negative These tests were developed and their performance characteristics determined by [facility]. They may not have been cleared or approved by the [place]. Food and Drug Administration. The FDA has determined that such clearance or approval is not necessary. INTERPRETATION: A. Gastric antrum, biopsy: Negative for Helicobacter pylori organisms. STEFANY:samira 05/29/2021
--- NOTE | 2021-05-28 07:13 | HP.PCM_ITS ---
HPI - General HPI Narrative LELAND SIMMONS, is a 60 F who presentsHPI Chief Complaint: flank pain Details: LELAND SIMMONS, is a 60 F who presents to the office today for abdominal pain and occasional diarrhea. She has lost over 200 pounds over the last 20 years through watching her caloric intake. 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 At this time she is on long-acting insulin and NovoLog sliding scale. She previously was on 2000 mg of Metformin which she felt like was causing a lot of bloating and diarrhea. Currently she still having problems with nausea, vomiting in early satiety. She says is getting to the point where she cannot eat anything and if she can eat as only once a day. She feels like it is very difficult to control her blood sugars because she cannot eat on a regular schedule. She is also been having problems with esophageal dysphagia and worsening GERD. She was recently in the ED with a did a CT scan of the abdomen pelvis which had shown some mild inflammation in the stomach. She was recently in the hospital for urinary incontinence and frequency. She was diagnosed with a urinary tract infection. She does not have any other autoimmune diseases. All other 16 review of systems are negative except those pertinent positive mentioned HPI. ROS Const Constitutional: Positive for fatigue, headache(s), weakness and weight change Eyes Eyes: Positive for irritation ENT ENT: Positive for ear or mastoid pain, hearing loss, headache(s) and difficulty swallowing; No tongue swelling or throat swelling Resp Respiratory: No cough or shortness of breath Cardio Cardiology: Positive for leg pain with exertion Gastro GI: Positive for abdominal pain, bloating, diarrhea, heartburn, difficulty swallowing, nausea/dyspepsia and vomiting Genitourinary-Female: Positive for urinary incontinence, urinary frequency and urinary urgency Musc Musculoskeletal: Positive for joint pain, joint swelling, muscle weakness, Arthritis, restless legs, leg pain at night and leg pain with exertion Skin Skin: No hair loss in leg, yellowing of the eye, itchy eyes, rash, skin ulcer or skin swelling Neuro Neurology: Positive for weakness, headache(s) and restless legs Psych Psychiatric: Positive for anxiety Endo Endocrine: Positive for fatigue and weight change Aller/Imm Allergy/Immunologic: No itchy eyes, throat swelling or tongue swelling Luis Manuel/Lymp Hematologic/Lymphatic: No easy bleeding, easy bruising or enlarged lymph nodes Exam Const General: cooperative and comfortable Nutritional Appearance: average body habitus and well nourished [facility] Head: normal to inspection Ears: hearing grossly normal bilaterally Nose: external nose normal Face and sinus: normal facial exam Mouth: oral mucosae normal Throat: posterior oropharynx normal Eyes General: appearance normal, both eyes and all related structures Neck Neck: normal visual inspection Chest Chest palpation & inspection: normal inspection of the chest and normal palpation of entire chest wall Resp Effort & Inspection: normal respiratory effort Auscultation: Bilateral: Clear to Auscultation Cardio Palpation: normal PMI Rate: regular rate Rhythm: regular rhythm GI Inspection: normal to inspection Auscultation: normal bowel sounds Percussion: normal to percussion Palpation: no hepatosplenomegaly Skin General: no rashes or lesions noted Neuro General: patient alert Extrem General: normal to inspection Psych Affect: normal affect Quality Reporting Tobacco Screening ([facility] 138) Smoking Status: Former smoker Assessment and Plan Assessment and Plan (1) Abdominal pain: Status: Acute Plan - Dr. Ya Friend, DO: After reviewing her CT scan abdomen pelvis it seems as if she might have a double duct sign. Meaning that her common bile duct in pancreatic duct are both mildly dilated. I reviewed her liver enzymes and they were only mildly elevated and I believe that is from a pre-existing diagnosis of fatty liver disease. I will get a MRCP due to the abnormality seen on the CT scan abdomen pelvis. (2) Nausea & vomiting: Status: Acute Plan - Dr. Ya Friend, DO: I believe that her nausea vomiting could be from gastroparesis. We will perform upper endoscopy to look for signs of gastric outlet. If that is normal. Then she will need a gastric emptying study. (3) Diarrhea: Status: Acute Plan - Dr. Ya Friend, DO: I suspect a lot of her diarrhea is from the Metformin she was taking. She is only been off it 2 weeks and is drastically improved. If it still occurring after 2 weeks then we will check stool studies and do appropriate work-up for that. This is an op and H&P from when she was seen in the office. Nothing has changed since she was seen in the office. [facility] Medical History (Updated 05/26/21 @ 09:44 by Florence Piedra) Abdominal pain Acute hypokalemia Acute right flank pain Anxiety Arthritis Bacteriuria Cardiology follow-up encounter Depression Diarrhea Diarrhea Dietary restriction DM type 2 (diabetes mellitus, type 2) Fatty liver Former smoker Gastric reflux GERD (gastroesophageal reflux disease) High cholesterol History of edema History of hiatal hernia History of stress test HTN (hypertension) Hyperlipidemia Injury of head and neck Leg cramps Marijuana use Nausea Nausea & vomiting Restless legs Thyroid disease Wears dentures Wears glasses Home Medications atorvastatin 40 mg PO QHS 09/22/19 [History Last Taken 09/21/19] lisinopril-hydrochlorothiazide 1 tab PO DAILY 09/22/19 [History Last Taken 09/21/19] sertraline 100 mg PO DAILY 09/22/19 [History Last Taken 09/21/19] Lantus Solostar U-100 Insulin 34 unit SUBCUT BREAKFAST 04/09/21 [History Last Taken Unknown] insulin aspart U-100 6 unit SUBCUT TID 04/09/21 [History Last Taken Unknown] pantoprazole [Protonix] 40 mg PO DAILY #30 tab 04/09/21 [Rx Last Taken Unknown] trazodone 100 mg PO QHS #0 tab 05/10/21 [Rx Last Taken 09/21/19] Allergy/AdvReac Type Severity Reaction Status Date / Time simvastatin [From Zocor] Allergy Swelling Verified 05/26/21 09:30 Sulfa (Sulfonamide Allergy Swelling Verified 05/26/21 09:30 Antibiotics) Family History Mother Hypertension Lupus Glaucoma Arthritis Neuropathy Brother Diabetes Hypertension Hyperlipemia Surgical History (Updated 05/26/21 @ 09:44 by Florence Piedra) H/O foot surgery h/o left hand surgery History of esophagogastroduodenoscopy (EGD) History of hip surgery History of hysterectomy History of left knee surgery History of rotator cuff surgery Hx of colonoscopy Social History household members: other details: daughter housing: house Smoking Status: Former smoker Tobacco: How many years used: 35 alcohol intake: never what type of physical activity do you participate in: none do you feel safe at home: Yes Vital Signs Vital Signs Vital Signs: 05/28/21 06:30 Temperature 97.7 F L Temperature Source Temporal Pulse Rate 62 Respiratory Rate 16 Respiratory Pattern Normal Blood Pressure 109/86 H Blood Pressure Mean 93 Blood Pressure Source Monitor Blood Pressure Position Sitting Blood Pressure Location Left Arm Pulse Ox 100 Oxygen Delivery Method Room Air Weight Weight: 155 lb 3.287 oz Body Mass Index (BMI) 28.3 Results Lab / Micro Data Labs: Laboratory Results - last 24 hr 05/28/21 06:20: POC Glucose 231 H Micro: Microbiology 05/27/21 10:23 Interface Orders SARS-CoV-2 Antigen (Rapid) - Final
--- NOTE | 2021-05-28 07:33 | OP.EGD_ITS ---
Patient Name: Stefanie Wayne Procedure Date: 05/28/2021 7:07 AM Date of : 1960 Age: 60 Procedure: Upper GI endoscopy Indications: Abdominal pain in the right upper quadrant, Functional Dyspepsia Providers: Felton Brown DO Medicines: Monitored Anesthesia Care Patient Profile: This is a 60 year old female. Refer to note in patient chart for documentation of history and physical. Patient has symptoms. The symptoms first began 2018. Complications: No immediate complications. Procedure: Pre-Anesthesia Assessment: - Prior to the procedure, a History and Physical was performed, and patient medications and allergies were reviewed. The patient is competent. The risks and benefits of the procedure and the sedation options and risks were discussed with the patient. All questions were answered and informed consent was obtained. Patient identification and proposed procedure were verified by the physician in the pre-procedure area. Mental Status Examination: alert and oriented. Airway Examination: normal oropharyngeal airway and neck mobility. Respiratory Examination: clear to auscultation. CV Examination: normal. Prophylactic Antibiotics: The patient does not require prophylactic antibiotics. Prior Anticoagulants: The patient has taken no previous anticoagulant or antiplatelet agents. ASA Grade Assessment: II - A patient with mild systemic disease. After reviewing the risks and benefits, the patient was deemed in satisfactory condition to undergo the procedure. The anesthesia plan was to use moderate sedation / analgesia (conscious sedation). Immediately prior to administration of medications, the patient was re-assessed for adequacy to receive sedatives. The heart rate, respiratory rate, oxygen saturations, blood pressure, adequacy of pulmonary ventilation, and response to care were monitored throughout the procedure. The physical status of the patient was re-assessed after the procedure. After obtaining informed consent, the endoscope was passed under direct vision. Throughout the procedure, the patient's blood pressure, pulse, and oxygen saturations were monitored continuously. The Endoscope was introduced through the mouth, and advanced to the second part of duodenum. The upper GI endoscopy was accomplished without difficulty. The patient tolerated the procedure well. Moderate Sedation: Moderate (conscious) sedation was administered by the endoscopy nurse and supervised by the endoscopist. The patient's oxygen saturation, heart rate, blood pressure and response to care were monitored. Scope In: 7:20:28 AM Scope Out: 7:26:22 AM Total Procedure Duration Time 0 hours 5 minutes 54 seconds Findings: The examined esophagus was normal. A small sliding hiatal hernia was seen. A few localized, non-bleeding erosions were found in the gastric antrum. There were no stigmata of recent bleeding. Biopsies were taken with a cold forceps for histology. Verification of patient identification for the specimen was done. Estimated blood loss was minimal. There also was the presence of pyloric stenosis. The examined duodenum was normal. Diffuse mild inflammation characterized by congestion (edema) was found in the first portion of the duodenum. Biopsies were taken with a cold forceps for histology. Verification of patient identification for the specimen was done. Estimated blood loss was minimal. Impression: - Normal esophagus. - Non-bleeding erosive gastropathy. Biopsied. - Normal examined duodenum. - Duodenitis. Biopsied. - Normal esophagus. - Gastritis. Biopsied. - Duodenitis. Biopsied. Recommendation: - Discharge patient to home. - Resume previous diet. - Continue present medications. - Await pathology results. - Repeat upper endoscopy in 1 year for surveillance based on pathology results. - Return to GI office in 2 weeks. Procedure Code(s): --- Professional --- 21642, Esophagogastroduodenoscopy, flexible, transoral; with biopsy, single or multiple CPT copyright 2017 [employer]. All rights reserved. The codes documented in this report are preliminary and upon glue maker review may be revised to meet current compliance requirements. Felton Brown DO 05/28/2021 7:33:12 AM This report has been signed electronically. Number of Addenda: 1 Note Initiated On: 05/28/2021 7:07 AM Addendum Number: 1 Addendum Date: 04/30/2022 4:09:45 PM MAC was used instead of moderate sedation for this patient. Felton Brown DO 04/30/2022 4:09:53 PM This report has been signed electronically.
--- NOTE | 2021-05-28 07:34 | OP.CCLET_ITS ---
04/30/2022 Zachary Toney [address] [place] [address] Re : Upper GI endoscopy procedure for Stefanie Wayne Dear Dr. Toney This procedure was performed on Friday, May 28, 2021. My impressions and recommendations are as follows: Impressions : - Normal esophagus. - Non-bleeding erosive gastropathy. Biopsied. - Normal examined duodenum. - Duodenitis. Biopsied. - Normal esophagus. - Gastritis. Biopsied. - Duodenitis. Biopsied. Recommendations : - Discharge patient to home. - Resume previous diet. - Continue present medications. - Await pathology results. - Repeat upper endoscopy in 1 year for surveillance based on pathology results. - Return to GI office in 2 weeks. My findings are described in the full procedure note, which is enclosed. If I can be of further assistance, please feel free to contact me at . Sincerely, Felton Brown, 05/28/2021 7:33:12 AM This report has been signed electronically.
[2021-05-28 07:35] VITALS: BP 109/86; BP 126/72; PULSE 59; RESP 16; TEMP 36.1; O2SAT 94
[2021-05-28 07:40] VITALS: BP 109/86; BP 127/77; PULSE 54; RESP 16; O2SAT 95
[2021-05-28 07:45] VITALS: BP 109/86; BP 133/77; PULSE 85; RESP 16; O2SAT 100
[2021-05-28 07:48] VITALS: BP 109/86; BP 130/73; PULSE 53; RESP 16; TEMP 35.9; O2SAT 100
[2021-05-28 07:51] VITALS: BP 109/86
== END 2021-05-28 08:12 ==
LOC: EN 05:49 → AC 05:49
PROVIDERS: PCP Internal Medicine; Referring Provider Internal Medicine; Visit Provider Internal Medicine Gastroenterology
PROC: 0DJ08ZZ Inspection of Upper Intestinal Tract, Via Natural or Artificial Opening Endoscopic (ICD-10-PCS; CPT 43235; principal; 2021-05-28 06:55)
DX: K29.70 Gastritis, unspecified, without bleeding (principal); K44.9 Diaphragmatic hernia without obstruction or gangrene; K31.89 Other diseases of stomach and duodenum; E78.00 Pure hypercholesterolemia, unspecified; E11.9 Type 2 diabetes mellitus without complications; K21.9 Gastro-esophageal reflux disease without esophagitis; I10 Essential (primary) hypertension; F32.9 Major depressive disorder, single episode, unspecified; R63.4 Abnormal weight loss; R13.19 Other dysphagia; K76.0 Fatty (change of) liver, not elsewhere classified; M19.90 Unspecified osteoarthritis, unspecified site; F12.90 Cannabis use, unspecified, uncomplicated; F41.9 Anxiety disorder, unspecified; G25.81 Restless legs syndrome; Z79.4 Long term (current) use of insulin; Z87.891 Personal history of nicotine dependence; Z68.28 Body mass index [BMI] 28.0-28.9, adult; Z79.899 Other long term (current) drug therapy
CPT/HCPCS: 43239; 82962; 87426; 88305; 88342; C9803; J7120; J2405

== ENCOUNTER → 2021-06-11 10:10 | Outpatient (CLI) | payer MEDICAID, SELFPAY ==
--- NOTE | 2021-06-11 10:12 | NM_ITS ---
CLINICAL: 60-year-old diabetic female with reported history of abdominal pain. SEMI-SOLID PHASE 99m Tc SULFUR COLLOID GASTRIC EMPTYING STUDY COMPARISON: CT of the abdomen-pelvis report 05/08/2021, abdominal ultrasound report 05/08/2021 FINDINGS: The patient was administered 1.0 mCi of 99m Tc sulfur colloid mixed with oatmeal and consumed per os. Image acquisitions in the anterior-posterior projections for a total of 60 minutes. There is prompt visualization of the stomach. There is no gastroesophageal reflux identified. The T ? linear fit was calculated to be 32.83 minutes, (Normal: 12-56 minutes). 81% emptying and 19% retention is defined at 60 minutes following meal completion. NM/Gastric Emptying Study IMPRESSION: 1. NORMAL 99m Tc sulfur colloid semi-solid phase (oatmeal) gastric emptying imaging examination. A. There is normal and preserved semi-solid phase gastric emptying compared to normal controls. (Ciera et al, J Nucl Med Tech 38: 186, 2010). Electronically Signed: Shan Reese DO at 22:15 EDT Tel , Service support ,
== END ==
PROVIDERS: PCP Internal Medicine; Referring Provider Internal Medicine Gastroenterology; Visit Provider Internal Medicine Gastroenterology
DX: R10.9 Unspecified abdominal pain (principal)
CPT/HCPCS: 78264; A9541

== ENCOUNTER → 2021-06-23 10:33 | Outpatient (CLI) | payer MEDICAID, SELFPAY ==
--- NOTE | 2021-06-23 10:35 | US_ITS ---
STUDY: RENAL ULTRASOUND - COMPLETE REASON FOR EXAM: Female, 61 years old. UTI TECHNIQUE: Ultrasound evaluation of the kidneys was performed with real-time and static whyte-scale imaging. COMPARISON: None. FINDINGS: RIGHT KIDNEY: Normal location of the right kidney, which is normal in size. The right kidney measures 9.9 cm x 4.9 cm x 5.6 cm. There is a normal cortex of the right kidney. The renal cortex measures 1.1 cm. There is no right renal mass or cyst. There are no right renal calculi. There is no right hydronephrosis. DISTAL RIGHT URETER: There is non-visualization of the distal right ureter. There is no demonstrated right ureterovesical junction calculus. There is no demonstrated right ureteral jet. LEFT KIDNEY: Normal location of the left kidney, which is normal in size. The left kidney measures 12.2 cm x 5 cm x 5.6 cm. There is a normal cortex of the left kidney. The renal cortex measures 1.5 cm. There is no left renal mass or cyst. There are no left renal calculi. There is no left hydronephrosis. DISTAL LEFT URETER: There is non-visualization of the distal left ureter. There is no demonstrated left ureterovesical junction calculus. There is no demonstrated left ureteral jet. BLADDER: The distended urinary bladder has a volume of 15 ml. There is a normal wall thickness of the distended urinary bladder. There is no demonstrated mass within the urinary bladder. There are no demonstrated bladder calculi. US/Kidney and Bladder IMPRESSION: Normal ultrasound of the kidneys and urinary bladder. Electronically Signed: David Garcia MD at 12:31 EDT , Service support ,
== END ==
PROVIDERS: PCP Internal Medicine; Referring Provider Urology; Visit Provider Urology
DX: N39.0 Urinary tract infection, site not specified (principal)
CPT/HCPCS: 76770

== ENCOUNTER → 2021-06-24 09:51 | Outpatient (CLI) | payer MEDICAID, SELFPAY ==
[2021-06-24 12:45] LABS: Glucose 109 mg/dL (74-106)
[2021-06-25 17:25] LABS: C-Peptide 0.7 ng/mL (1.1-4.4)
== END ==
PROVIDERS: PCP Internal Medicine; Referring Provider Nurse Practitioner Family; Visit Provider Nurse Practitioner Family
DX: E11.9 Type 2 diabetes mellitus without complications (principal)
CPT/HCPCS: 36415; 82947; 84681

== ENCOUNTER 2021-11-24 10:54 | Outpatient (CLI) | payer MEDICAID, SELFPAY ==
--- NOTE | 2021-11-24 10:54 | MRI_ITS ---
STUDY: MRI CERVICAL SPINE WITHOUT CONTRAST REASON FOR EXAM: Female, 61 years old. pain bilateral shoulders/hands TECHNIQUE: Standardized fat and water weighted pulse sequences were obtained in the sagittal and axial planes. COMPARISON: MRI of the cervical spine dated August 16, 2020 FINDINGS: Normal foramen magnum and brainstem-cervical cord junction. Normal craniovertebral junction. Normal anterior atlantoaxial articulation. Normal odontoid process. There is reversal of the normal cervical lordosis. C2-3: Normal endplates. Diffuse disc desiccation and mild disc space narrowing in addition to a central disc protrusion resulting in mass effect and mild central canal stenosis. Normal intervertebral neural foramina. C3-4: Diffuse disc desiccation and mild disc space narrowing with a diffuse disc spur complex and midline disc protrusion resulting in mild compression anterior aspect of the cord and contributing to mild central canal stenosis. Normal intervertebral neural foramina. C4-5: Moderate to severe disc space narrowing with a diffuse disc osteophyte complex asymmetric to the left resulting in compression on the anterior aspect of the cord, most prominent on the left. Mild central canal stenosis is also present. Mild left foraminal stenosis is present without nerve root compression. Normal right neural foramen. C5-6: Moderate to severe disc space narrowing with a diffuse disc osteophyte complex contributing to mild central canal stenosis. Moderate left foraminal stenosis with nerve root compression is present due to uncovertebral and facet joint hypertrophy. Normal right neural foramen. C6-7: Moderate disc space narrowing with a diffuse disc spur complex resulting in mild central canal stenosis. Superimposed right of midline disc protrusion with compression on the anterior aspect of the cord. Normal intervertebral neural foramina. C7-T1: Mild disc space narrowing without bulging or herniation of the disc. Normal central canal and intervertebral neural foramina. Normal cervical cord. There is no demonstrated cervical cord syrinx cavity. Normal visualized soft tissue structures. MRI/Spine Cervical (Routine) IMPRESSION: 1. Multilevel degenerative changes, as described above. 2. Mild central canal stenosis with cord compression at multiple levels from disc osteophyte complexes. Electronically Signed: Santi Gomez MD at 15:23 EDT ,
== END 2021-11-24 23:59 | disposition home or self-care (01) ==
LOC: MRI 10:54
PROVIDERS: PCP Internal Medicine; Visit Provider Orthopaedic Surgery
DX: M50.30 Other cervical disc degeneration, unspecified cervical region (principal)
CPT/HCPCS: 72141

== ENCOUNTER 2021-12-09 05:14 | Inpatient (IN) | payer MEDICAID, SELFPAY ==
--- NOTE | 2021-12-03 10:41 | EKG12_ITS ---
Test Reason : Blood Pressure : / mmHG Vent. Rate : 070 BPM Atrial Rate : 070 BPM P-R Int : 158 ms QRS Dur : 120 ms QT Int : 420 ms P-R-T Axes : 047 007 044 degrees QTc Int : 453 ms Normal sinus rhythm Right bundle branch block Abnormal ECG Confirmed by ELVIS MARTÍNEZ, YESSENIA ([id number]), health editor PREM MARTIN ([id number]) on 12/04/2021 11:21:10 AM Referred By: Shimon Estrada Confirmed By:YESSENIA LEAL MD
[2021-12-03 11:45] LABS: Absolute Lymphocyte Count 1.64 X10^3/uL (0.83-4.51); Absolute Neutrophil Count 4.5 X10^3/uL (2.0-7.7); Basophil# 0.07 X10^3/uL; Eosinophil# 0.36 X10^3/uL; Eosinophils% 5.1 % (0-5); Hematocrit 38.8 % (37-47); Hemoglobin 13.2 g/dL (12.0-15.0); Lymphocyte # 1.64 X10^3/ul (0.83-4.51); Lymphocyte % 23.2 % (19-41); Mean Corpuscular Hgb 29.3 pg (27.0-32.0); Mean Platelet Vol. 10.6 fl (6.2-12.0); Monocyte% 7.1 % (0-10); NRBC Flagged by Analyzer 0 % (0-5); Neutrophil # 4.47 X10^3/uL (2.7-7.7); Neutrophil % 63.3 % (47-70); Platelet Count 273 K/mm3 (150-450); RBC Distribution Width CV 12.5 % (11.6-14.6); RBC Distribution Width SD 39.3 fl (35.1-43.9); Red Blood Count 4.51 M/mm3 (4.2-5.4); White Blood Count 7.1 K/mm3 (4.4-11.0)
[2021-12-03 12:18] LABS: Anion Gap 6 (5-15); BUN 15 mg/dL (7-18); BUN/Creat Ratio 15.5 RATIO (10-20); Calcium,Total 9.3 mg/dL (8.5-10.1); Chloride 107 mmol/L (98-107); Creatinine, Serum 0.97 mg/dL (0.55-1.02); EST Glomerular Filtration Rate 63 mL/min (>60); Est Glom Filt Rate - Afr Amer 76 mL/min (>60); Glucose 179 mg/dL (74-106); Magnesium 1.8 mg/dL (1.6-2.6); Potassium 3.6 mmol/L (3.5-5.1); Sodium Level 139 mmol/L (136-145)
[2021-12-03 12:30] LABS: Hemoglobin A1c 6.9 % (3.8-5.6)
[2021-12-03 12:54] LABS: HIV - WCH Non-Reactive (Nonreactive); Hepatitis B Surface Antibody Reactive; Hepatitis C Antibody Non-Reactive (Nonreactive)
[2021-12-04 09:25] LABS: Hepatitis A AB, Total Positive (Negative)
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
[2021-12-09] VITALS (14 sets, daily range): BP systolic 138–204; BP diastolic 74–103; PULSE 61–105; RESP 15–19; TEMP 36.5–36.9; O2SAT 93–100; BMI 29.5; BMI 30.4
--- NOTE | 2021-12-09 | DISC_PTH ---
PATIENT: LELAND SIMMONS LOC: MS3 U#:[id number] AGE/SX: 61/F ROOM: [facility] [place] RE12/09/[address]: Dr. Caity Rojas DO : 1960 BED: 1 DIS: 12/10/2021 SPEC #: [id number] RECD: 12/09/21 12:57 STATUS: NABIL REMarcie #: [id number] FERMIN: 12/09/21 00:[address]: Shimon Estrada DEPT: SURGICAL PATHOLOGY RECD BY: Constantino Ambrosio ENTERED: 12/09/21 12:57 SP TYPE: DISC OTHR DR: MD Dr. Zachary Schneider MD Tissues: Intervertebral disc, NOS Procedures: Surgery Specimen Level IV HEADER OPERATION: ERAS, anterior cervical fusion C6-7, C5-6, C4-5 PRE-OP DIAGNOSIS: Neck pain, degenerative arthritis of cervical spine, cervical (neck) region somatic dysfunction TISSUE SUBMITTED: Cervical disc C4-5, C5-6, C6-7 MICROSCOPIC DIAGNOSIS Cervical disc C4-5, C5-6 and C6-7: Fragments of fibrocartilaginous tissue and hyaline cartilaginous tissue with degenerative and reactive changes and bone. STEFANY:samira 12/10/2021 MICROSCOPIC DESCRIPTION Slides are reviewed. GROSS DESCRIPTION Received in fixative is one container labeled with the patient's name and designated cervical disc C4-7. The specimen consists of multiple irregular fragments of indurated pink-contreras soft tissue that in aggregate measure 5 x 5 x 0.3 cm. Health And Safety Trainer portions are submitted in one cassette. / AM:samira 12/09/2021 TC:5 CPT: 24709
[2021-12-09] MEDS: Lactated Ringers 1,000 ML 15 ML IV ×3 (06:28→11:30)
[2021-12-09] MEDS: Acetaminophen 500 MG Tablet 1000 MG PO ×3 (06:32→21:47)
[2021-12-09 07:05] LABS: Bedside Glucose 189 mg/dL (74-106)
[2021-12-09] MEDS: Cefazolin 2 GM in 0.9% Normal Saline 100 ML IV (07:30)
--- NOTE | 2021-12-09 07:30 | RAD_ITS ---
STUDY: X-RAY - CERVICAL SPINE REASON FOR EXAM: Female, 61 years old. ANTERIOR FUSION C4-7 TECHNIQUE: 1 view(s) of the cervical spine were obtained. COMPARISON: None FINDINGS: The localization instrument is seen anterior to the C6 vertebral body. RAD/Spine 1 View Any Level IMPRESSION: The localization instrument is seen anterior to the C6 vertebral body. Electronically Signed: David Garcia MD at 9:28 EDT ,
--- NOTE | 2021-12-09 08:21 | RAD_ITS ---
STUDY: X-RAY - LUMBAR SPINE REASON FOR EXAM: Female, 61 years old. ANTERIOR FUSION C4-7 TECHNIQUE: 1 view(s) of the lumbar spine were obtained. COMPARISON: None FINDINGS: The localization instrument is at the anterior aspect of the C5-C6 disc. RAD/Spine 1 View Any Level IMPRESSION: Localization instrument is at the anterior aspect of the C5-C6 disc space level. Electronically Signed: David Garcia MD at 15:48 EDT ,
--- NOTE | 2021-12-09 09:25 | RAD_ITS ---
STUDY: X-RAY - CERVICAL SPINE REASON FOR EXAM: Female, 61 years old. ANTERIOR FUSION C4-7 TECHNIQUE: 1 view(s) of the cervical spine were obtained. COMPARISON: Comparison is made with prior study done earlier today. FINDINGS: The patient is status post anterior fusion with screw and plate fixation at the C4-C5, C5-C6 and C6-C7 levels with prosthetic disc placement. RAD/Spine 1 View Any Level IMPRESSION: Status post multilevel anterior fusion as described. Electronically Signed: David Garcia MD at 14:45 EDT ,
[2021-12-09] MEDS: Heparin 10,000 UNITS/10 ML Vial 10000 UNITS (10:40)
[2021-12-09] MEDS: THROMBIN (RECOMBINANT) 20,000 UNIT VIAL 20000 UNIT TOPICAL (10:41)
--- NOTE | 2021-12-09 12:40 | PCM.OPRPT ---
Report of Operation Date of Procedure: 12/09/21 Description of Surgical Findings:: Preoperative diagnosis: Degenerative disc disease C6-7, C5-6, and C4-5 Postoperative diagnosis: The same Procedures: #1 anterior cervical fusion C6-7 CPT code 28054 #2 application of 8 hole spinal plate C4-C7 CPT code 40805/59 #3 anterior cervical fusion C5-6 CPT code 34284/51 #4 anterior cervical fusion C4-5 CPT code 47640/51 #5 insertion of anterior titanium cage C6-7 CPT code 43923 #6 insertion of anterior titanium cage C5-6 CPT code 78117/51 #7 insertion of anterior titanium cage C4-5 CPT code 63424/51 Surgeon: Dr. Estrada assistant fitness manager: Marisa Alatorre NP Anesthesia: General endotracheal anesthesia administered by [facility] Estimated blood loss: Less than 30 cc Drains: 1/4 inch [place] was attempted but drain came out. Complications: None Procedure: Patient was taken to the OR where she was put in the supine position on the OR table. She was then placed under general endotracheal anesthesia. A Ferguson catheter was inserted. Neuro monitoring placed their leads on the patient. We then took a preoperative x-ray with a marker in place so that we would know her to start the incision. This was marked with a very small laceration using the end of the needle. The neck and the left crest area were then prepped and draped in standard fashion. First we took a Jamshidi needle through a small puncture hole with a 15 blade the needle was inserted along the ASIS on the left side. It was tamped into place and 60 cc of bone marrow aspirate were obtained in 2 different 30 cc syringes. These were handed off to the video game technician in the room who would concentrate the stem cells and them from the other cells. They were then handed back to us. I then made the cervical incision at that predetermined point just crossing the midline to the left of the midline and Kirvin in line with her normal skin creases to the edge of the right sternocleidomastoid muscle. The cutaneous tissues were incised length of the skin incision. I split the platysma longitudinally in line with its fibers and then developed the other up interfascial planes. First we opened the superficial cervical fascia followed by opening of the pretracheal fascia in this fashion we were able to identify the carotid pulse and protected throughout the procedure. I then retracted the midline structures that is the trachea and esophagus to the left and the sternocleidomastoid and carotid sheath to the right. This gave us good access at see 5 6. A needle marker was put in place to assure that we were indeed at the right level. We proved to be on the lateral x-ray. We then moved down 1 level to C6-7 and marked the space with cautery. Note that she had a lot of anterior spurring at all 3 levels and I have used double-action rongeurs to remove the spurring followed by removal of the very thinned disks at all 3 levels. This was done using a 15 blade followed by a skinny pituitary to remove nucleus from the disc space. Then used a bur to remove the rest of the anterior lip was able to barely get a distractor in place on 1 side remove the disc from that side and then flipped it to the other side to remove all the disc possible. The dewayne bur was used to flatten the space here and there to make room for the cage. A first cage turned out to be a 6 mm cage. Trial that of course I then followed by the use of broach to broach the space into flat and bleeding bone. Thorough irrigation was carried out every 10 to 50 minutes in the course of the case we then filled the 6 mm cage with spongy demineralized bone matrix and then soaked in the patient's own concentrated stem cells that were given back to us from the video game technician. This was then tamped into place and countersunk a couple of millimeters. We then moved to the instrumentation up to 5-6 elevated the longus coli muscles off either side and again put the same retractors were used at the other level to expose C5-6 again double-action rongeurs were used to remove the anterior osteophytes followed by removal of some of the disc material with a 15 blade and pituitaries and then again distractors were used to open 1 side and remove the cartilage off both endplates with curettes on both left and right sides. Again we had to use the dewayne bur to bur the sides into a little better opening to allow for the receipt of a cage. At this level we used again of the appropriate size broach ended up using a 7 mm cage. We filled the middle of the cage with demineralized bone matrix that was spongy in nature and soaked in the patient's own stem cells this was then tamped into place as we did at the C6-7 level. It was countersunk slightly. Then again removed the instrumentation and moved up to C4-5. We elevated the longus coli muscles on either side but the retractors back in place giving us good access to C4-5 again we had used the double-action rongeurs to remove the anterior osteophytes followed by cutting of the thinned disc with a 15 blade and removal of disc material with pituitary rongeurs all the way back to near the posterior longitudinal ligament. Again distractors were used so we could remove all remaining cartilage off both endplates. The bur again was used to flatten the surface on both sides this turned out to need another 6mm cage again it was I broached with the appropriate instrument good bleeding bone. The 6mm cage was then again filled with demineralized bone matrix that was soaked in the patient's stem cells and tamped into place and countersunk a couple of millimeters. Following this we used a 8 hole plate 53 mm long. We were able to put a couple of pins in place to hold it while we use the awl to punch each hole followed by the insertion of a 14 mm screw we put to open into C7 2 into C6 2 into C5 and 2 into C4.'s were locked through the locking mechanism of the spider plate. With observed and on lateral x-ray was found be very satisfactory with good position of the screws the plates and the cage. Then placed a two 2 x 3 amnionic membranes directly over vent adhesions to the trachea or the esophagus. 1/4 inch Jessica drain but it was the kind that is too stiff and does not want to stay in and it eventually came out just as we were finishing the closure. The wound was so dry we decided to just leave it out. Then closed the platysma running fashion with 5-0 Vicryl followed by closure of subcutaneous tissues in interrupted fashion with 5-0 Vicryl. This approximated the skin edges and sterile dressings were then applied. This is the end of operative summary on Stefanie Wayne. This is Dr. Estrada dictating.
[2021-12-09 12:41] LABS: Bedside Glucose 203 mg/dL (74-106)
[2021-12-09] MEDS: Lactated Ringers 1,000 ML 100 ML IV (14:45)
[2021-12-09] MEDS: oxyCODONE 5 MG Tablet PO (16:37)
--- NOTE | 2021-12-09 16:37 | PCM.PN.HOSP ---
Documented by User: Fabiola Swann NP, CIVIL ENGINEERING ASSISTANT-C 12/09/21 16:43 Subjective Subjective Patient seen and examined. Status post anterior cervical fusion secondary to degenerative disc disease. Hospitalist services consulted for medical management. Patient reports significant postoperative pain. She denies other symptoms or complaints. Objective Data Objective Data Vital Signs: Vital Signs Temp Pulse Resp BP Pulse Ox 98.3 F 85 16 168/91 H 93 12/09/21 16:10 12/09/21 16:10 12/09/21 16:10 12/09/21 16:10 12/09/21 16:10 Oxygen Flow Rate (L/min) 95 Oxygen Delivery Method Room Air Weight: 171 lb 15.369 oz Body Mass Index (BMI) 30.4 Intake & Output: Intake and Output for Last 24 Hours 12/07/21 12/08/21 12/09/21 23:59 23:59 23:59 Intake Total 2214 / 2214 Output Total 250 / 250 Balance 1963 / 1963 Lab / Micro Data Result Diagrams: 12/03/21 11:00 12/03/21 11:00 Labs: Laboratory Results - last 24 hr 12/09/21 06:11: POC Glucose 189 H 12/09/21 12:38: POC Glucose 203 H Micro: Microbiology 12/03/21 11:00 Swab (Method) Nasal Screen MRSA/MSSA - Final Radiography Diagnostic Testing: Radiology Impression Spine X-Ray 12/09/21 07:30 IMPRESSION: The localization instrument is seen anterior to the C6 vertebral body. Electronically Signed: David Garcia MD at 9:28 EDT , Spine X-Ray 12/09/21 08:21 IMPRESSION: Localization instrument is at the anterior aspect of the C5-C6 disc space level. Electronically Signed: David Garcia MD at 15:48 EDT , Spine X-Ray 12/09/21 09:25 IMPRESSION: Status post multilevel anterior fusion as described. Electronically Signed: David Garcia MD at 14:45 EDT , Physical Exam Const alert, oriented x3 and no apparent distress Orientation / Consciousness: awake, oriented to person, oriented to place and oriented to time HEENT normocephalic and moist oral mucous membranes Eyes PERRL, EOMs intact bilaterally and conjunctivae normal Neck no lymphadenopathy Resp normal respiratory effort and clear to auscultation bilaterally Cardio regular rate, regular rhythm and no murmurs Peripheral Pulses: pulses 2+ throughout GI normal to inspection, nondistended, normoactive bowel sounds, non-tender and non-distended Extremity normal to inspection Skin no rashes or lesions noted Skin Narrative: Cervical dressing intact Lesions: no lesions Rashes: no rashes Trauma: no lacerations or abrasions Neuro CN's II-XII intact bilaterally, no focal motor deficits, no sensory deficits noted and deep tendon reflexes 2+ bilaterally Psych mental status grossly normal and affect normal Assessment & Plan Assessment/Plan (1) Degenerative disc disease, cervical: PLAN: 1. Degenerative disc disease C6-7, C5-C6, C4-5 status post anterior cervical fusion and insertion of titanium cage. Management per surgery. PT eval. As needed pain regimen. 2. Type 2 diabetes mellitus-on insulin pump. Accu-Cheks per protocol. Follows with endocrinology. Hemoglobin A1c 12/03/2021 6.9%. 3. Hypertension-continue lisinopril/HCTZ. 4. Hyperlipidemia-continue statin. 5. GERD-continue PPI. 6. Depression/anxiety-on sertraline. DVT prophylaxis-SCDs This patient was seen by SIMA Quijano under the supervision of Dr. Velasco. Time spent examining patient, reviewing data and subsequent management of care: 14 minutes Documented by User: Dr. Alexandre Velasco MD 12/09/21 19:08 Objective Data Lab / Micro Data Result Diagrams: 12/03/21 11:00 12/03/21 11:00 Charges/Coding Addendum Addendum: Dr. Velasco: I personally reviewed the chart and examined the patient, and agree with the above findings. 61-year-old female presented to this hospital today for an elective anterior cervical fusion. Medicine was consulted for medical management of her hyperlipidemia, diabetes, hypertension. Will recommend continuing all of her home medications and monitoring her electrolytes in the morning as well as her creatinine. She does have an insulin pump which we will continue using postoperatively. Pain management per primary. Has some postoperative nausea today but otherwise states that she feels fine in her arms and legs. Clinical time spent in all aspects of patient care 20 minutes Visit Charges Inpatient E&M: 53872 Subs Hosp L2
[2021-12-09] MEDS: Cefazolin 1 GM/50 ML BAG IV ×2 (16:38→23:49)
[2021-12-09] MEDS: dexAMETHasone 4 MG/ML Vial 2 MG IV ×2 (16:38→21:47)
[2021-12-09] MEDS: Ensure Surgery 237 ML LIQUID PO (16:42)
[2021-12-09] MEDS: Morphine 4 MG/ML Syringe IV (19:34)
[2021-12-09] MEDS: Ondansetron 4 MG/2 ML Vial IV (19:34)
--- NOTE | 2021-12-09 19:44 | EKG12_ITS ---
Test Reason : CP Blood Pressure : / mmHG Vent. Rate : 084 BPM Atrial Rate : 084 BPM P-R Int : 162 ms QRS Dur : 126 ms QT Int : 420 ms P-R-T Axes : 044 000 028 degrees QTc Int : 496 ms Normal sinus rhythm Right bundle branch block Abnormal ECG When compared with ECG of 03-DEC-2021 10:50, No significant change was found Confirmed by TOMÁS MARTÍNEZ, HILARIA ([id number]), publications editor MARTHA MEEHAN ([id number]) on 12/12/2021 1:22:58 PM Referred By: Shimon Estrada Confirmed By:OFE ENGLAND MD
--- NOTE | 2021-12-09 20:40 | NURSING ---
blood glucose 129
[2021-12-09 21:08] LABS: Troponin-I HS 4 pg/mL (3.0-54.0)
[2021-12-09] MEDS: traZODone 100 MG Tablet PO (21:47)
[2021-12-09] MEDS: Gabapentin 300 MG Capsule PO (21:47)
[2021-12-09] MEDS: Atorvastatin Calcium 40 MG Tablet PO (21:47)
[2021-12-10] MEDS: dexAMETHasone 4 MG/ML Vial 2 MG IV ×2 (03:46→08:54)
[2021-12-10 03:52] VITALS: BP 151/85; PULSE 92; RESP 18; TEMP 36.8; O2SAT 96
[2021-12-10] MEDS: Acetaminophen 500 MG Tablet 1000 MG PO (05:52)
[2021-12-10 06:18] LABS: Absolute Lymphocyte Count 1.12 X10^3/uL (0.83-4.51); Absolute Neutrophil Count 15.7 X10^3/uL (2.0-7.7); Basophil# 0.02 X10^3/uL; Basophil% 0.1 % (0-1); Hematocrit 34.9 % (37-47); Hemoglobin 11.6 g/dL (12.0-15.0); Lymphocyte # 1.12 X10^3/ul (0.83-4.51); Lymphocyte % 6.3 % (19-41); Mean Corp Hgb Conc 33.2 g/dL (32-36); Mean Corpuscular Hgb 28.9 pg (27.0-32.0); Mean Corpuscular Volume 86.8 fL (81-99); Mean Platelet Vol. 10.1 fl (6.2-12.0); Monocyte# 0.76 X10^3/uL; Monocyte% 4.3 % (0-10); NRBC Flagged by Analyzer 0 % (0-5); Platelet Count 259 K/mm3 (150-450); RBC Distribution Width CV 12.7 % (11.6-14.6); RBC Distribution Width SD 40.2 fl (35.1-43.9); Red Blood Count 4.02 M/mm3 (4.2-5.4); White Blood Count 17.7 K/mm3 (4.4-11.0)
[2021-12-10 06:46] LABS: Anion Gap 7 (5-15); BUN 13 mg/dL (7-18); BUN/Creat Ratio 17.3 RATIO (10-20); Calcium,Total 8.4 mg/dL (8.5-10.1); Chloride 106 mmol/L (98-107); Creatinine, Serum 0.75 mg/dL (0.55-1.02); EST Glomerular Filtration Rate 84 mL/min (>60); Est Glom Filt Rate - Afr Amer 101 mL/min (>60); Estimated Creatinine Clearance 66.81 ml/min; Glucose 197 mg/dL (74-106); Sodium Level 138 mmol/L (136-145)
--- NOTE | 2021-12-10 07:06 | NURSING ---
blood glucose 142
[2021-12-10 08:07] VITALS: BP 136/88; PULSE 89; RESP 14; TEMP 36.6; O2SAT 95
[2021-12-10 08:08] VITALS: O2SAT 98
[2021-12-10] MEDS: Ensure Surgery 237 ML LIQUID PO (08:51)
[2021-12-10] MEDS: Sertraline 100 MG Tablet PO (08:51)
[2021-12-10] MEDS: Pantoprazole Sodium 40 MG Tablet PO (08:51)
[2021-12-10] MEDS: Lisinopril 20 MG Tablet PO (08:52)
[2021-12-10] MEDS: hydroCHLOROthiazide 12.5mg 12.5 MG PO (08:52)
[2021-12-10] MEDS: 0.9% Saline Lock 10 ML Syringe IV ×2 (08:54→13:07)
--- NOTE | 2021-12-10 10:25 | CASEMGMT ---
RN CM Face to Face with patient for initial transition planning/care coordination assessment. RN CM introduced self and role at [facility]. Patient lying in bed, alert and oriented. Patient willing to participate in assessment and is able to answer all questions appropriately. Care providers, pharmacy, and demographics verified. Patient wishes to discharge home, denies need for home health at this time. Patient states she has no further needs or concerns at this time. CM to follow for discharge planning needs that may arise. PCP: Feng Specialists: Sean, spinal; Tiki, director of development and marketing; , marketing liaison; Jeovanny, Urologist Preferred Pharmacy: [facility], [facility] retail at discharge. Insurance: [employer] Prescription Benefit: yes Living Will/HPOA: none LNOK: daughter Living Arrangements: Patient lives in a mobile home with 5 steps and railing to enter the home. Patient states she is independent at home. Transportation: daughter DME/HHC: Patient states she has cane, glucometer with supples, and insulin pump with supplies. Patient denies previous HHC or SNF. Disposition Plan: Patient to discharge home with family support and follow-up plans in place. Jennifer KHALIL, RN, CM
--- NOTE | 2021-12-10 10:26 | PCM.PN.HOSP ---
Documented by User: Fabiola Swann NP, PIE ICER MACHINE-C 12/10/21 10:32 Subjective Subjective Patient seen and examined. Reports pain is fairly controlled. States she is only able to eat soft foods as her neck swelling is causing her to have difficulty swallowing. Denies other symptoms or complaints. Objective Data Objective Data Vital Signs: Vital Signs Temp Pulse Resp BP Pulse Ox 98 F 89 14 136/88 H 98 12/10/21 08:07 12/10/21 08:07 12/10/21 08:07 12/10/21 08:07 12/10/21 08:08 Oxygen Flow Rate (L/min) 2 Oxygen Delivery Method Room Air Weight: 171 lb 15.369 oz Body Mass Index (BMI) 30.4 Intake & Output: Intake and Output for Last 24 Hours 12/08/21 12/09/21 12/10/21 23:59 23:59 23:59 Intake Total 2470.67 / 2820.67 1988.33 / 1988.33 Output Total 550 / 1850 2100 / 2100 Balance 1920.67 / 970.67 -111.67 / -111.67 Lab / Micro Data Result Diagrams: 12/10/21 06:05 12/10/21 05:42 Labs: Laboratory Results - last 24 hr 12/09/21 12:38: POC Glucose 203 H 12/09/21 20:20: Troponin I High Sens 4 12/10/21 05:42: Sodium 138, Potassium 4.0, Chloride 106, Carbon Dioxide 25.0, Anion Gap 7, BUN 13, Creatinine 0.75, Estim Creat Clear Calc 66.81, Est GFR (MDRD) Af Amer 101, Est GFR (MDRD) Non-Af 84, BUN/Creatinine Ratio 17.3, Glucose 197 H, Calcium 8.4 L 12/10/21 06:05: WBC 17.7 H, RBC 4.02 L, Hgb 11.6 L, Hct 34.9 L, MCV 86.8, MCH 28.9, MCHC 33.2, RDW Std Deviation 40.2, RDW Coeff of Celine 12.7, Plt Count 259, MPV 10.1, Immature Gran % (Auto) 0.300, Neut % (Auto) 89.0 H, Lymph % (Auto) 6.3 L, [place] % (Auto) 4.3, Eos % (Auto) 0.0, Baso % (Auto) 0.1, Absolute Neuts (auto) 15.7 H, Absolute Lymphs (auto) 1.12, Nucleated RBC % 0 Micro: Microbiology 12/03/21 11:00 Swab (Method) Nasal Screen MRSA/MSSA - Final Radiography Diagnostic Testing: Radiology Impression Spine X-Ray 12/09/21 07:30 IMPRESSION: The localization instrument is seen anterior to the C6 vertebral body. Electronically Signed: David Garcia MD at 9:28 EDT , Spine X-Ray 12/09/21 08:21 IMPRESSION: Localization instrument is at the anterior aspect of the C5-C6 disc space level. Electronically Signed: David Garcia MD at 15:48 EDT , Spine X-Ray 12/09/21 09:25 IMPRESSION: Status post multilevel anterior fusion as described. Electronically Signed: David Garcia MD at 14:45 EDT , Physical Exam Narrative Anterior postoperative dressing intact. Notable swelling. Const alert, oriented x3 and no apparent distress Orientation / Consciousness: awake, oriented to person, oriented to place and oriented to time HEENT normocephalic and moist oral mucous membranes Eyes PERRL, EOMs intact bilaterally and conjunctivae normal Neck no lymphadenopathy Resp normal respiratory effort and clear to auscultation bilaterally Cardio regular rate, regular rhythm and no murmurs Peripheral Pulses: pulses 2+ throughout GI normal to inspection, nondistended, normoactive bowel sounds, non-tender and non-distended Extremity normal to inspection Skin no rashes or lesions noted Lesions: no lesions Rashes: no rashes Trauma: no lacerations or abrasions Neuro CN's II-XII intact bilaterally, no focal motor deficits, no sensory deficits noted and deep tendon reflexes 2+ bilaterally Psych mental status grossly normal and affect normal Assessment & Plan Assessment/Plan (1) Degenerative disc disease, cervical: PLAN: 1. Degenerative disc disease C6-7, C5-C6, C4-5 status post anterior cervical fusion and insertion of titanium cage. Management per surgery. PT eval. As needed pain regimen. If patient continues to have difficulty swallowing related to swelling from surgery, obtain speech therapy consult. 2. Type 2 diabetes mellitus-on insulin pump. Accu-Cheks per protocol. Follows with endocrinology. Hemoglobin A1c 12/03/2021 6.9%. 3. Hypertension-continue lisinopril/HCTZ. 4. Hyperlipidemia-continue statin. 5. GERD-continue PPI. 6. Depression/anxiety-on sertraline. 7. Leukocytosis-suspect reactive from surgery. No evidence of infection. Afebrile. DVT prophylaxis-SCDs This patient was seen by Fabiola Swann NP-C under the supervision of Dr. Rojas. Documented by User: Dr. Caity Rojas DO 12/10/21 13:18 Subjective Subjective This patient was seen in conjunction with Fabiola Swann NP. The following represents my independent history and physical examination. Please see below for addendum the above. Patient reports that overall her pain is well controlled. She states that she is still having some issues swallowing given postoperative swelling. No significant issues. Patient does have an insulin pump and boluses per her director of consumer affairs for blood sugars greater than 250. Objective Data Lab / Micro Data Result Diagrams: 12/10/21 06:05 12/10/21 05:42 Physical Exam Const alert, oriented x3 and no apparent distress Constitutional Narrative: Obese, middle-aged white female sitting up in a chair at the bedside, cervical collar in place, nursing in place, patient appears comfortable and nontoxic Exam Limitations: no limitations Nutritional Appearance: obese HEENT head/scalp atraumatic and moist oral mucous membranes HEENT Narrative: Dentures in place, Mallampati 2 Head and Scalp: normocephalic Resp normal respiratory effort, no retractions, no use of accessory muscles and clear to auscultation bilaterally Auscultation: Negative for crackles, rales, rhonchi or wheezes Cardio regular rate, regular rhythm, S1 normal heart sound, S2 normal heart sound, no murmurs, no rub, no gallops, no clicks and no JVD GI normal to inspection, nondistended, normoactive bowel sounds, soft to palpation, non-tender and non-distended; Negative for hepatosplenomegaly Extremity no clubbing, cyanosis or edema Peripheral Pulses: Yes pulses 2+ throughout Neuro oriented x3, moves all extremities and no focal motor deficits Sensorium / Orientation: awake and alert Speech: speech normal Assessment & Plan Assessment/Plan (1) Degenerative disc disease, cervical: (2) Spondylosis of cervical region without myelopathy or radiculopathy: (3) Leukocytosis: PLAN: Assessment: Degenerative disc disease at C6-C7, C5-C6, C4-C5 status post ACDF DM-2 with insulin pump Hypertension Hyperlipidemia GERD Depression Anxiety Leukocytosis Plan: -Patient states her pain is overall well controlled but she is having some difficulty swallowing things that are not soft due to swelling -Suspect leukocytosis is reactive from surgery and secondary to steroid administration -Sugars are little high postoperatively with a Decadron use however patient does utilize an insulin pump and initiate boluses with blood sugars greater than 08/31/1947 -Patient follows with Dr. Suazo for endocrinology -Continue home all home medications -Medically stable for discharge when she is surgically ready Charges/Coding Visit Charges Inpatient E&M: 64301 Subs Hosp L2
--- NOTE | 2021-12-10 11:59 | PCM.DC ---
Discharge Instructions Follow Up Care Test Results: Test results from this visit will be discussed in further detail at your follow-up appointment, if applicable. Discharge Plan Admission Admit Date/Time: 12/09/21 05:14 Primary Reason for Your Visit: cervical fusion Attending Provider: Caity Rojas Primary Care Provider: Zachary Toney Consulting Providers: Mathew Escalante ; Alexandre Velasco Instructions Additional Instructions / Restrictions: pt may remove dressing on Wednesday, leave incision open to air. May shower starting Wednesday. Do not apply and creams or lotions to incision. Discharge Orders/Prescriptions Prescriptions: No Action loratadine 10 mg tablet 10 mg PO DAILY RF: 0 gabapentin 300 mg capsule 300 cap PO QHS RF: 0 atorvastatin 20 MG tablet 40 mg PO QHS RF: 0 lisinopril-hydrochlorothiazide 1 EACH tablet 1 tab PO DAILY RF: 0 sertraline 100 MG tablet 100 mg PO DAILY RF: 0 Humalog U-100 Insulin 100 unit/mL Cartridge 0 unit SUBCUT DAILY RF: 0 omeprazole 40 mg capsule,delayed release(DR/EC) 40 mg PO DAILY RF: 0 trazodone 100 MG tablet 100 mg PO QHS RF: 0 (DME) pen needle, diabetic [BD Ultra-Fine Sheri Pen Needle] 32 gauge x 5/32 needle See Rx Instructions .ROUTE .MEDSUPPLY Qty: 150 RF: 2 Referrals / Follow Up: Zachary Toney MD [Primary Care Provider] - Disposition Disposition (needs filled in before D/C Order can be placed): Home, Self Care
--- NOTE | 2021-12-10 12:05 | DS.PCM_ITS ---
Providers Date of Admission: 12/09/21 Primary Care Physician: Dr. Zachary Toney MD Consultations 12/09/21 14:07 Consult: Hospitalist Routine Consulting Provider: Alexandre Velasco Reason for Consult: med management EMERGENT Consult: No MD Notified: Yes Date Notified: 12/09/21 Time Notified: 15:10 Method of Notification: Text Reason For Visit: ANTERIOR CERVICAL FUSION C4 - C7 Diagnosis Discharge Diagnosis (1) Degenerative disc disease, cervical: Status: Acute Code(s): M50.30 - Other cervical disc degeneration, unspecified cervical region Medications at Discharge Home Medications atorvastatin 40 mg PO QHS 09/22/19 lisinopril-hydrochlorothiazide 1 tab PO DAILY 09/22/19 sertraline 100 mg PO DAILY 09/22/19 loratadine 10 mg tablet 10 mg PO DAILY 06/23/21 pen needle, diabetic 32 gauge x #150 ea 08/01/21 gabapentin 300 mg capsule 300 cap PO QHS 10/22/21 insulin lispro [Humalog U-100 Insulin] 0 unit SUBCUT DAILY 12/01/21 omeprazole 40 mg PO DAILY 12/09/21 trazodone 100 mg PO QHS 12/09/21 Hospital Course Summary of Care Provided Hospital Course: This is Dr. Estrada dictating discharge summary on [facility]. This patient was admitted yesterday 09 December and is being discharged today. Yesterday she underwent three-level anterior cervical fusion including C4-5, C5-6 and C6-7. She has done well postoperatively. Voice is reasonably clear. She is having little trouble swallowing at this time which is of course pretty normal. I change her dressing. Incision is dry and healing well. States that her headaches are gone and her neck pain is already significantly better. Do not get the shocks in her neck that she did before surgery. I gave her directions regarding her activity and the usual postop protocol regarding cervical fusions. He already has an appointment to see me in the office. We will give her some hydrocodone 5 mg for pain. This is the end of discharge summary on [facility]. This is Dr. Estrada dictating. Weight / BMI Weight Weight: 171 lb 15.369 oz Body Mass Index (BMI) 30.4 ABG / Lab / Microbiology Data Result Diagrams: 12/10/21 06:05 12/10/21 05:42 Laboratory: Laboratory Results - last 24 hr 12/09/21 12:38: POC Glucose 203 H 12/09/21 20:20: Troponin I High Sens 4 12/10/21 05:42: Sodium 138, Potassium 4.0, Chloride 106, Carbon Dioxide 25.0, Anion Gap 7, BUN 13, Creatinine 0.75, Estim Creat Clear Calc 66.81, Est GFR (MDRD) Af Amer 101, Est GFR (MDRD) Non-Af 84, BUN/Creatinine Ratio 17.3, Glucose 197 H, Calcium 8.4 L 12/10/21 06:05: WBC 17.7 H, RBC 4.02 L, Hgb 11.6 L, Hct 34.9 L, MCV 86.8, MCH 28.9, MCHC 33.2, RDW Std Deviation 40.2, RDW Coeff of Celine 12.7, Plt Count 259, MPV 10.1, Immature Gran % (Auto) 0.300, Neut % (Auto) 89.0 H, Lymph % (Auto) 6.3 L, [place] % (Auto) 4.3, Eos % (Auto) 0.0, Baso % (Auto) 0.1, Absolute Neuts (auto) 15.7 H, Absolute Lymphs (auto) 1.12, Nucleated RBC % 0 Microbiology: Microbiology 12/03/21 11:00 Swab (Method) Nasal Screen MRSA/MSSA - Final Radiography Diagnostic Testing: Radiology Impression Spine X-Ray 12/09/21 07:30 IMPRESSION: The localization instrument is seen anterior to the C6 vertebral body. Electronically Signed: David Garcia MD at 9:28 EDT , Spine X-Ray 12/09/21 08:21 IMPRESSION: Localization instrument is at the anterior aspect of the C5-C6 disc space level. Electronically Signed: David Garcia MD at 15:48 EDT , Spine X-Ray 12/09/21 09:25 IMPRESSION: Status post multilevel anterior fusion as described. Electronically Signed: David Garcia MD at 14:45 EDT , Meaningful Use Info Meaningful Use Diagnoses (Choose all that apply): None applicable Discharge Plan Admission Admit Date/Time: 12/09/21 05:14 Primary Reason for Your Visit: cervical fusion Attending Provider: Caity Rojas Primary Care Provider: Zachary Toney Consulting Providers: Mathew Escalante ; Alexandre Velasco Instructions Additional Instructions / Restrictions: pt may remove dressing on Wednesday, leave incision open to air. May shower starting Wednesday. Do not apply and creams or lotions to incision. Discharge Orders/Prescriptions Prescriptions: No Action loratadine 10 mg tablet 10 mg PO DAILY RF: 0 gabapentin 300 mg capsule 300 cap PO QHS RF: 0 atorvastatin 20 MG tablet 40 mg PO QHS RF: 0 lisinopril-hydrochlorothiazide 1 EACH tablet 1 tab PO DAILY RF: 0 sertraline 100 MG tablet 100 mg PO DAILY RF: 0 Humalog U-100 Insulin 100 unit/mL Cartridge 0 unit SUBCUT DAILY RF: 0 omeprazole 40 mg capsule,delayed release(DR/EC) 40 mg PO DAILY RF: 0 trazodone 100 MG tablet 100 mg PO QHS RF: 0 (DME) pen needle, diabetic [BD Ultra-Fine Sheri Pen Needle] 32 gauge x 5/32 needle See Rx Instructions .ROUTE .MEDSUPPLY Qty: 150 RF: 2 Referrals / Follow Up: Zachary Toney MD [Primary Care Provider] - Disposition Disposition (needs filled in before D/C Order can be placed): Home, Self Care
[2021-12-10 13:05] VITALS: BP 146/81; PULSE 89; RESP 18; TEMP 36.3; O2SAT 95
[2021-12-10] MEDS: Ondansetron 4 MG/2 ML Vial IV (13:07)
[2021-12-10 13:28] VITALS: BP 156/88; PULSE 95; RESP 14; TEMP 36.7; O2SAT 98
== END 2021-12-10 13:50 | disposition home or self-care (01) | DRG 310 ==
LOC: AC 05:24 → ACINP 06:05 → MS3 13:49
PROVIDERS: Anesthesiology; Family Medicine; Nurse Practitioner Family; Admitting Provider Orthopaedic Surgery; PCP Internal Medicine; Referring Provider Orthopaedic Surgery; Visit Provider Internal Medicine
PROC: 0RT30ZZ Resection of Cervical Vertebral Disc, Open Approach (ICD-10-PCS; CPT 22551; principal; 2021-12-09 07:00)
DX: M50.321 Other cervical disc degeneration at C4-C5 level (principal); D72.829 Elevated white blood cell count, unspecified; E11.9 Type 2 diabetes mellitus without complications; E78.5 Hyperlipidemia, unspecified; F32.A Depression, unspecified; Z79.4 Long term (current) use of insulin; I10 Essential (primary) hypertension; K21.9 Gastro-esophageal reflux disease without esophagitis; F41.9 Anxiety disorder, unspecified; M47.812 Spondylosis without myelopathy or radiculopathy, cervical region; Z79.84 Long term (current) use of oral hypoglycemic drugs; Z87.891 Personal history of nicotine dependence; R13.10 Dysphagia, unspecified
CPT/HCPCS: 36415; 72020; 80048; 82962; 83036; 83735; 84484; 85025; 86703; 86706; 86708; 86803; 87081; 88304; 88305; 93005; 97161; 97530; C1713; J7120; A4216; J2405

== ENCOUNTER → 2022-04-07 | Outpatient (CLI) | payer MEDICAID, SELFPAY | END | disposition home or self-care (01) | LOC: SL 20:24 | PROVIDERS: PCP Internal Medicine; Referring Provider Internal Medicine; Visit Provider Internal Medicine | DX: G47.30 Sleep apnea, unspecified (principal) | CPT/HCPCS: 95810 ==

== ENCOUNTER → 2022-07-03 | Outpatient (CLI) | payer MEDICAID, SELFPAY ==
[2022-07-03] MEDS: Lidocaine 2% (5ml sdv) 5 ML VIAL.MPF INFILT (13:00)
[2022-07-03] MEDS: Bupivacaine Mpf 0.5% 30 ML VIAL INTRAARTIC (13:00)
[2022-07-03] MEDS: Triamcinolone Acetonide 40 MG/ML Vial 80 MG INTRAARTIC (13:00)
--- NOTE | 2022-07-03 13:30 | RAD_ITS ---
PROCEDURE: Fluoroscopic guided Hip Injection DATE: 07/03/2022. INDICATION: Female, 62 years old. Chronic right hip pain. PHYSICIAN: David Garcia M.D. MEDICATIONS: 80 mg of KENALOG and 3 cc of MARCAINE. 2% Lidocaine administered subcutaneously for local anesthesia. ACCESS SITE: Right hip. NEEDLE: 22-gauge spinal needle. FLUOROSCOPY TIME (if supplied): (0:38) minutes/seconds. One image was submitted. FINDINGS: The risks, benefits, and alternatives to the procedure were explained to the patient. The specific risks of bleeding, infection, and neurovascular injury were detailed and accepted. Witnessed informed consent was obtained. A 22-gauge spinal needle was positioned under radiographic fluoroscopic localization. Approximately 2 cc of ISOVUE-300 instilled for localization purposes. Medication was then injected. The patient tolerated the procedure well without any immediate complications. RAD/Inj/Asp Andrez Jt Should/Hip/Knee IMPRESSION: 1. Successful fluoroscopic guided hip injection. Electronically Signed: David Garcia MD at 14:05 EDT ,
== END | disposition home or self-care (01) ==
LOC: RAD 12:58
PROVIDERS: PCP Internal Medicine; Referring Provider Orthopaedic Surgery; Visit Provider Orthopaedic Surgery
DX: M25.551 Pain in right hip (principal); M16.0 Bilateral primary osteoarthritis of hip
CPT/HCPCS: 20610; 77002; Q9967

== ENCOUNTER → 2022-08-08 | Outpatient (CLI) | payer MEDICAID, SELFPAY ==
--- NOTE | 2022-08-08 10:31 | US_ITS ---
INDICATION: Left flank pain EXAMINATION: Ultrasound US Kidney(s) complete. TECHNIQUE: Massey scale and color doppler images were obtained of the kidneys. COMPARISON: None. FINDINGS: RIGHT KIDNEY: 9.9 x 4.4 x 5.6 cm. The renal cortex measures 1.4 cm.. There is no hydronephrosis. No shadowing calculus, focal lesion or perinephric collection is demonstrated. LEFT KIDNEY: 12.1 x 5.2 x 5.5 cm. The renal cortex measures 1.3 cm. There is no hydronephrosis. No shadowing calculus, focal lesion or perinephric collection is demonstrated. URINARY BLADDER: Empty, not evaluated. US/Kidney and Bladder IMPRESSION: Negative renal ultrasound. Electronically Signed: Cortez Bermudez MD at 12:12 [facility] ,
== END | disposition home or self-care (01) ==
LOC: US 10:30
PROVIDERS: PCP Internal Medicine; Referring Provider Urology; Visit Provider Urology
DX: R10.9 Unspecified abdominal pain (principal)
CPT/HCPCS: 76770

== ENCOUNTER → 2022-12-18 | Outpatient (CLI) | payer MEDICAID, SELFPAY ==
[2022-12-18 12:38] LABS: Vitamin D,25 Hydroxy 26.4 ng/mL
[2022-12-18 12:45] LABS: Microalbumin,Random Urine 10.7 mg/L (NO RANGE EST.); Microalbumin:Creatinine Ratio 8.7 mg/g CRE (<30 mg/g CRE)
[2022-12-18 12:53] LABS: ALB/GLOB Ratio 1.1 RATIO (0.9-2.4); AST(SGOT) 14 U/L (15-37); Alanine Aminotransfer ALT/SGPT 19 U/L (13-56); Albumin, Serum 3.4 g/dL (3.2-5.0); Alkaline Phosphatase 117 U/L (45-117); Anion Gap 5 (5-15); BUN 19 mg/dL (7-18); BUN/Creat Ratio 21.4 RATIO (10-20); Calcium,Total 8.9 mg/dL (8.5-10.1); Chloride 111 mmol/L (98-107); Cholesterol 144 mg/dL (200); Creatinine, Serum 0.89 mg/dL (0.55-1.02); EST Glomerular Filtration Rate 69 mL/min (>60); Est Glom Filt Rate - Afr Amer 83 mL/min (>60); Globulin 3.2 g/dL (2.2-4.2); Glucose 150 mg/dL (74-106); High Density Lipoprotein 57 mg/dL; Potassium 3.8 mmol/L (3.5-5.1); Protein, Total 6.6 g/dL (6.4-8.2); Sodium Level 139 mmol/L (136-145); Thyroid Stim Hormone (TSH) 0.91 uIU/mL (0.358-3.74); Triglycerides 105 mg/dL; Very Low Density Lipoprotein 21 mg/dL (5-40)
== END | disposition home or self-care (01) ==
LOC: LAB 11:31
PROVIDERS: PCP Internal Medicine; Referring Provider Nurse Practitioner Family; Visit Provider Nurse Practitioner Family
DX: E11.9 Type 2 diabetes mellitus without complications (principal)
CPT/HCPCS: 36415; 80053; 80061; 82043; 82306; 82570; 84443

== ENCOUNTER 2023-05-05 15:14 | Emergency (ER) | payer MEDICARE, MEDICAID, SELFPAY ==
[2023-05-05 15:15] VITALS: BP 118/78; PULSE 93; RESP 17; TEMP 36.6; O2SAT 98
--- NOTE | 2023-05-05 15:40 | CT_ITS ---
STUDY: CT ABDOMEN AND PELVIS WITH CONTRAST REASON FOR EXAM: Female, 62 years old. pain, vomiting RADIATION DOSAGE (If Supplied By Facility): CTDIvol = ( 13.01 ) mGy, DLP = ( 809.56 ) mGycm TECHNIQUE: Transaxial images were obtained from the dome of the diaphragm to the symphysis pubis without oral contrast. IV 100mL Isovue-300 was administered. Sagittal and coronal images were reconstructed. Individualized dose optimization techniques were used for this CT. COMPARISON: 05/08/2021. FINDINGS: The visualized lung bases are unremarkable. Normal cardiac size with coronary artery calcifications. Normal liver. Normal gallbladder and extrahepatic biliary system. Normal spleen. Normal pancreas. Normal bilateral adrenal glands. Normal right kidney. Normal left kidney. Normal visualized stomach. Multiple loops with thickening of the wall involving the small bowel diffusely consistent with enteritis. The descending colon is decompressed with mild diffuse thickening of the wall concerning for mild colitis. There is fluid within the colon. The appendix is visualized and appears normal. There is diffuse atherosclerotic calcification of the abdominal aorta, without a demonstrated aneurysm. Normal inferior vena cava. Normal retroperitoneum. Normal urinary bladder. A pessary seen in place. Normal abdominal wall. There are diffuse degenerative changes of the visualized lumbar spine. CT/Abdomen/Pelvis W IV Cont ONLY IMPRESSION: Findings compatible with enterocolitis. No acute appendicitis or bowel obstruction. Unremarkable abdominal viscera. Electronically Signed: Virginia De Luna MD at 17:09 EDT ,
--- NOTE | 2023-05-05 15:47 | ED.VIS.GI ---
HPI HPI - GI History of Present Illness Chief Complaint: Abd Pain Informant: patient Narrative Narrative: Presents with abdominal pain nausea vomiting and weight loss. Patient states she has a history of vomiting. She had problems with vomiting for [address] Kevin dilated something in her stomach about 2 years ago. She generally has been doing well. She saw him a couple months ago. She states after seeing him she started with nausea and vomiting again. She does have Zofran which she occasionally takes but it does not she also was on doxycycline twice a day but has been off that for 2 or 3 weeks. She is lost 15 to 20 pounds in the last 2 months. She states she has been vomiting during the day. Sometimes she can get food and sometimes she cannot. No blood in the vomiting. She also has some epigastric discomfort. She also reports having had pancreatitis in the past. She does not drink any alcohol though. She has not had cholecystectomy. [facility] Medical History Abdominal pain Acute hypokalemia Acute right flank pain Anxiety Arthritis Bacteriuria Cardiology follow-up encounter Depression Diabetes Diarrhea Diarrhea Dietary restriction Fatty liver Former smoker Gastric reflux Gastroparesis High cholesterol History of edema History of hiatal hernia History of stress test HTN (hypertension) Hyperlipidemia Injury of head and neck Leg cramps Marijuana use Nausea Nausea & vomiting Obesity Presence of insulin pump Presence of pessary Restless legs Thyroid disease Wears dentures Wears glasses Home Medications atorvastatin 20 mg tablet 40 mg PO QHS cholesterol 09/22/19 [History Last Taken 12/08/21] lisinopril 20 mg-hydrochlorothiazide 12.5 mg tablet 1 tab PO DAILY bp 09/22/19 [History Last Taken 12/08/21] sertraline 100 mg tablet 100 mg PO DAILY depression 09/22/19 [History Last Taken 12/08/21] loratadine 10 mg tablet 10 mg PO DAILY allergies 06/23/21 [History Last Taken 12/08/21] pen needle, diabetic 32 gauge x 32 (BD Ultra-Fine Sheri Pen Needle) #150 ea 08/01/21 [Rx Last Taken Unknown] omeprazole 40 mg capsule,delayed release 40 mg PO DAILY gerd 12/09/21 [History Last Taken 12/08/21] trazodone 100 mg tablet 100 mg PO QHS insomnia 12/09/21 [History Last Taken 12/08/21] insulin lispro 100 unit/mL subcutaneous solution (Humalog U-100 Insulin) 100 unit subcut DAILY #30 mL 10/14/22 [Rx Last Taken Unknown] meloxicam 15 mg tablet ea PO 11/30/22 [History Last Taken Unknown] gabapentin 300 mg capsule 90,000 mg PO .QID pain 12/17/22 [History Last Taken Unknown] doxycycline hyclate 100 mg capsule 100 mg PO BID #60 caps 03/10/23 [Rx Last Taken Unknown] linaclotide 145 mcg capsule (Linzess) 145 mcg PO DAILY #30 caps 03/10/23 [Rx Last Taken Unknown] blood sugar diagnostic ([employer] Ultra Test strips) #100 ea 03/11/23 [Rx Last Taken Unknown] blood-glucose meter ([employer] MobileTouch Verio Flex Meter) #1 ea 03/11/23 [Rx Last Taken Unknown] metoclopramide HCl 10 mg tablet (Reglan) 10 mg PO Q6H PRN nausea and vomiting #10 tabs 05/05/23 [Rx Last Taken Unknown] ondansetron 4 mg disintegrating tablet 4 mg PO Q8H PRN PRN Nausea #10 tabs 05/05/23 [Rx Last Taken Unknown] promethazine 25 mg tablet 25 mg PO Q6H PRN PRN Nausea #10 TABLETS 05/05/23 [Rx Last Taken Unknown] Allergy/AdvReac Type Severity Reaction Status Date / Time simvastatin [From Zocor] Allergy Swelling Verified 05/05/23 15:15 Sulfa (Sulfonamide Allergy Swelling Verified 05/05/23 15:15 Antibiotics) Family History Mother Hypertension Lupus Glaucoma Arthritis Neuropathy Brother Diabetes Hypertension Hyperlipemia Surgical History H/O foot surgery h/o left hand surgery History of esophagogastroduodenoscopy (EGD) History of esophagogastroduodenoscopy (EGD) History of hip surgery History of hysterectomy History of left knee surgery History of rotator cuff surgery Hx of colonoscopy Social History household members: other details: daughter housing: house Smoking Status: Former smoker Tobacco: How many years used: 35 alcohol intake: never what type of physical activity do you participate in: none do you feel safe at home: Yes ROS ROS ED ROS Narrative A complete review of systems was performed and is negative except as documented in the history of present illness. Some specific details below. Constitutional: No recent fevers or chills. Has had weight loss though. EYE: No visual complaints or pain. ENT: No difficulty swallowing. No swelling. No pain. No GERD symptoms CV: No chest pain or palpitations. Respiratory: No dyspnea. No hemoptysis. No difficulty taking breaths. GI: Please see history of present illness. : No frequency dysuria or hematuria. Musculoskeletal: No recent trauma. No pains. Skin: No rash. Nondiaphoretic. Neuro: No weakness or numbness. Endocrine: No polyuria or polydipsia. EXAM Physical Exam Narrative Exam Narrative: CONSTITUTIONAL: Patient is nontoxic in appearance. The patient looks comfortable. HEENT: No notable trauma. Mucous membranes mildly dry. No sinus tenderness. No indication of pain with swallowing. EYES: No conjunctival injection. No proptosis. CARDIOVASCULAR: Regular rate. Regular rhythm. No notable murmur. No JVD. RESPIRATORY: No respiratory distress. Breathing is unlabored. No wheezes. No rhonchi. No rales. No pain with a deep breath. GASTROINTESTINAL: Not distended. Bowel sounds are normal. Does have some mild epigastric tenderness but no rebound or guarding. I feel no mass. GENITOURINARY: No tenderness over the bladder. No CVA tenderness. MUSCULOSKELETAL: Atraumatic. No peripheral edema. No cord. No tenderness along the deep venous system. No asymmetry. NEUROLOGICAL: Patient is alert and appropriate. No focal deficit noted. SKIN: No noted rashes. No diaphoresis. PSYCHIATRIC: Patient is calm. Mood is appropriate. Const Vital Signs: 05/05/23 15:15 05/05/23 17:15 05/05/23 19:00 Temperature 97.9 F Temperature Source Temporal Pulse Rate 93 81 Respiratory Rate 17 16 15 Blood Pressure 118/78 116/78 Blood Pressure Mean 91 90 Pulse Ox 98 94 Oxygen Delivery Method Room Air Room Air MDM MDM MDM Narrative Medical decision making narrative: CBC is normal. Patient's electrolytes are normal other than mild elevation in the creatinine and mildly low sodium. But this should correct. Her glucose was high at 398. But IV fluids should help bring this down. She also states she is comfortable managing this. Patient's liver function test showed minimal elevation of alkaline phosphatase but otherwise normal. Patient's lipase is normal Patient's urine does not show any convincing evidence of infection. My independent interpretation of her CT scan of the abdomen with no obstruction. Reading or findings consistent with enterocolitis. Patient was feeling better. She tolerated p.o. Been having symptoms for a while. She has recurrent symptoms. She denies known history of diabetic gastroparesis although I wonder if that might be a contributing feature. She is feeling better. She would like to try going home which I think is a reasonable option. I had Phenergan. She has some Zofran at home but I will write for more. I will also write for Reglan to see if this will give her some benefit. I explained she should use Reglan or Phenergan but not both at the same time. She can try Zofran between 1 of those. If she is having fevers, pain, cannot keep anything down or worsening symptoms she may need to come in. Lab Data Attestation: I reviewed the patient's lab results. Labs: Laboratory Results - last 24 hr 05/05/23 05/05/23 15:48 16:25 WBC 9.3 RBC 5.18 Hgb 14.3 Hct 43.3 MCV 83.6 MCH 27.6 MCHC 33.0 RDW Std Deviation 41.0 RDW Coeff of Celine 13.2 Plt Count 274 MPV 10.7 Immature Gran % (Auto) 0.400 Neut % (Auto) 80.4 H Lymph % (Auto) 12.3 L [place] % (Auto) 5.8 Eos % (Auto) 0.3 Baso % (Auto) 0.8 Absolute Neuts (auto) 7.5 Absolute Lymphs (auto) 1.15 Nucleated RBC % 0 Sodium 130 L Potassium 3.9 Chloride 95 L Carbon Dioxide 24.0 Anion Gap 11 BUN 18 Creatinine 1.18 H Estim Creat Clear Calc 41.94 Est GFR (MDRD) Af Amer 60 Est GFR (MDRD) Non-Af 50 L BUN/Creatinine Ratio 15.3 Glucose 398 H Calcium 9.3 Total Bilirubin 0.50 AST 16 ALT 21 Alkaline Phosphatase 144 H Total Protein 7.1 Albumin 3.7 Globulin 3.4 Albumin/Globulin Ratio 1.1 Lipase 29 Urine Color Yellow Urine Clarity Clear Urine pH 6.0 Ur Specific [place] 1.015 Urine Protein 15 H Urine Glucose (UA) 1000 H Urine Ketones 50 H Urine Occult Blood Negative Urine Nitrite Negative Urine Bilirubin Negative Urine Urobilinogen Normal Ur Leukocyte Esterase 25 H Urine RBC 0-5 SEEN Urine WBC 0 SEEN Ur Squamous Epith Cells 0-5 SEEN Urine Bacteria 0 SEEN Urine Mucus 0 SEEN Radiography Diagnostic Testing: Clinical Impression(s) from Imaging Studies Abdomen/Pelvis CT 05/05/23 15:40 IMPRESSION: Findings compatible with enterocolitis. No acute appendicitis or bowel obstruction. Unremarkable abdominal viscera. Electronically Signed: Virginia De Luna MD at 17:09 EDT , Discharge Plan Triage Chief Complaint: Abd Pain ED Provider: Brett Morgan Dx/Rx/DC Orders Clinical Impression: History of diabetes mellitus, Nausea & vomiting, Enterocolitis Instructions: ED Diet Vomiting Diarrhea Prescriptions: New promethazine [promethazine] 25 mg tablet 25 mg PO Q6H PRN PRN (Reason: Nausea) Qty: 10 0RF ondansetron [ondansetron] 4 mg tablet,disintegrating 4 mg PO Q8H PRN PRN (Reason: Nausea) Qty: 10 0RF metoclopramide HCl [Reglan] 10 mg tablet 10 mg PO Q6H PRN (Reason: nausea and vomiting) Qty: 10 0RF Rx Instructions: Try this Reglan or Phenergan but not both together. No Action loratadine 10 mg tablet 10 mg PO DAILY gabapentin 300 mg capsule 90,000 mg PO .QID meloxicam 15 mg tablet PO Patient Comments: TAKE 1 TABLET BY MOUTH ONCE DAILY NEEDED FOR PAIN. WITH FOOD. doxycycline hyclate 100 mg capsule 100 mg PO BID Qty: 60 0RF Linzess 145 mcg capsule 145 mcg PO DAILY Qty: 30 3RF atorvastatin 20 MG tablet 40 mg PO QHS lisinopril-hydrochlorothiazide 1 EACH tablet 1 tab PO DAILY Patient Comments: TAKE 1 TABLET BY MOUTH EVERY DAY sertraline 100 MG tablet 100 mg PO DAILY Patient Comments: TAKE 1 TABLET BY MOUTH EVERY DAY omeprazole 40 mg capsule,delayed release(DR/EC) 40 mg PO DAILY Patient Comments: TAKE 1 CAPSULE BY MOUTH EVERY DAY trazodone 100 MG tablet 100 mg PO QHS Rx Instructions: Hold trazodone for 1 week while patient is on Cipro to avoid QTC prolongation (DME) pen needle, diabetic [BD Ultra-Fine Sheri Pen Needle] 32 gauge x 5/32 needle See Rx Instructions .ROUTE .MEDSUPPLY Qty: 150 2RF Rx Instructions: 4 time daily insulin lispro [Humalog U-100 Insulin] 100 unit/mL solution 100 unit subcut DAILY Qty: 30 6RF (DME) blood-glucose meter [OneTouch Verio Flex meter] [facility] See Rx Instructions .Route Qty: 1 0RF Rx Instructions: As directed (DME) OneTouch Ultra Test Strip See Rx Instructions .Route Qty: 100 5RF Rx Instructions: 4x/day Primary Care Provider: Zachary Toney Referrals: Felton Brown DO [Med Staff - Active Staff] - As soon as possible Zachary Toney MD [Primary Care Provider] - Disposition Disposition: Home, Self Care
[2023-05-05 15:55] LABS: Absolute Lymphocyte Count 1.15 X10^3/uL (0.83-4.51); Absolute Neutrophil Count 7.5 X10^3/uL (2.0-7.7); Basophil# 0.07 X10^3/uL; Basophil% 0.8 % (0-1); Eosinophil# 0.03 X10^3/uL; Eosinophils% 0.3 % (0-5); Hematocrit 43.3 % (37-47); Hemoglobin 14.3 g/dL (12.0-15.0); Lymphocyte # 1.15 X10^3/ul (0.83-4.51); Lymphocyte % 12.3 % (19-41); Mean Corpuscular Hgb 27.6 pg (27.0-32.0); Mean Corpuscular Volume 83.6 fL (81-99); Mean Platelet Vol. 10.7 fl (6.2-12.0); Monocyte# 0.54 X10^3/uL; Monocyte% 5.8 % (0-10); NRBC Flagged by Analyzer 0 % (0-5); Neutrophil # 7.49 X10^3/uL (2.7-7.7); Neutrophil % 80.4 % (47-70); Platelet Count 274 K/mm3 (150-450); RBC Distribution Width CV 13.2 % (11.6-14.6); Red Blood Count 5.18 M/mm3 (4.2-5.4); White Blood Count 9.3 K/mm3 (4.4-11.0)
[2023-05-05] MEDS: Morphine 4 MG/ML Syringe IV (15:55)
[2023-05-05] MEDS: Ondansetron 4 MG/2 ML Vial IV (15:56)
[2023-05-05] MEDS: 0.9% Normal Saline 1,000 ML 1000 ML IV (15:56)
[2023-05-05 16:16] LABS: ALB/GLOB Ratio 1.1 RATIO (0.9-2.4); AST(SGOT) 16 U/L (15-37); Alanine Aminotransfer ALT/SGPT 21 U/L (13-56); Albumin, Serum 3.7 g/dL (3.2-5.0); Alkaline Phosphatase 144 U/L (45-117); Anion Gap 11 (5-15); BUN 18 mg/dL (7-18); BUN/Creat Ratio 15.3 RATIO (10-20); Calcium,Total 9.3 mg/dL (8.5-10.1); Chloride 95 mmol/L (98-107); Creatinine, Serum 1.18 mg/dL (0.55-1.02); EST Glomerular Filtration Rate 50 mL/min (>60); Est Glom Filt Rate - Afr Amer 60 mL/min (>60); Estimated Creatinine Clearance 41.94 ml/min; Globulin 3.4 g/dL (2.2-4.2); Glucose 398 mg/dL (74-106); Lipase 29 U/L (13-75); Potassium 3.9 mmol/L (3.5-5.1); Protein, Total 7.1 g/dL (6.4-8.2); Sodium Level 130 mmol/L (136-145)
[2023-05-05 16:29] LABS: Bacteria 0 SEEN /hpf (None Seen); Mucous, Urine 0 SEEN /hpf (<or=2+); White Blood Cells 0 SEEN /hpf (0-5)
[2023-05-05 16:41] LABS: Color, Urine Yellow (Yellow); Glucose, Dipstick 1000 mg/dl (Normal); Ketone-Dipstick 50 mg/dl (Negative); Leukocyte Esterase-Dipstick 25 /ul (Negative); Nitrite-Dipstick Negative (Negative); Occult Blood-Urine Negative /ul (Negative); Protein-Dipstick 15 mg/dl (Negative); Specific Gravity, Urine 1.015 (1.002-1.030); Urine Bilirubin Dipstick Negative (Negative); Urine Clarity Clear (Clear); Urine Urobilinogen Normal (Normal)
[2023-05-05 16:53] LABS: Red Blood Cells-Urine 0-5 SEEN /hpf (0-5); Squamous Epithelial Cells - UA 0-5 SEEN /hpf (5-10)
[2023-05-05 17:15] VITALS: RESP 16
[2023-05-05 19:00] VITALS: BP 116/78; PULSE 81; RESP 15; O2SAT 94
== END 2023-05-05 20:31 | disposition home or self-care (01) ==
PROVIDERS: Emergency Provider Emergency Medicine; PCP Internal Medicine; Visit Provider Emergency Medicine
DX: R11.2 Nausea with vomiting, unspecified (principal); K52.9 Noninfective gastroenteritis and colitis, unspecified; K76.0 Fatty (change of) liver, not elsewhere classified; Z87.891 Personal history of nicotine dependence
CPT/HCPCS: 74177; 80053; 81001; 83690; 85025; 96361; 96374; 96375; 99283; J7030; Q9967; A4216; J2405

== ENCOUNTER → 2023-05-24 | Outpatient (CLI) | payer MEDICARE, MEDICAID, SELFPAY ==
--- NOTE | 2023-05-24 07:37 | NM_ITS ---
CLINICAL: 62-year-old diabetic female with history of chronic nausea. SEMI-SOLID PHASE 99m Tc SULFUR COLLOID GASTRIC EMPTYING STUDY COMPARISON: Previous semisolid phase gastric emptying study dated 06/11/2021 FINDINGS: The patient was administered 1.0 mCi of 99m Tc sulfur colloid mixed with oatmeal and consumed per os. Image acquisitions in the anterior-posterior projections were obtained for 60 minutes. There is prompt visualization of the stomach. There is no gastroesophageal reflux identified. The T ? raw data emptying was calculated to be 25.44 compared to 32.83 minutes, (Normal: 12-56 minutes). NM/Gastric Emptying Study IMPRESSION: 1. NORMAL 99m Tc sulfur colloid semi-solid phase (oatmeal) gastric emptying imaging examination. A. There is normal and preserved semi-solid phase gastric emptying compared to normal controls with maintained first order kinetics throughout all components of the examination. (Ciera et al, J Nucl Med Tech 38: 186, 2010). B. Overall compared to the previous examination dated 06/11/2021, there is no definitive interval change. Electronically Signed: Shan Reese DO at 21:46 EDT ,
== END | disposition home or self-care (01) ==
LOC: NM 07:34
PROVIDERS: PCP Internal Medicine; Referring Provider Internal Medicine Gastroenterology; Visit Provider Internal Medicine Gastroenterology
DX: K31.84 Gastroparesis (principal)
CPT/HCPCS: 78264; A9541

== ENCOUNTER → 2023-06-24 | Outpatient (CLI) | payer MEDICARE, MEDICAID, SELFPAY ==
[2023-06-24 12:13] LABS: Mucous, Urine 0 SEEN /hpf (<or=2+); Red Blood Cells-Urine 0 SEEN /hpf (0-5)
[2023-06-24 13:17] LABS: Color, Urine Yellow (Yellow); Glucose, Dipstick Normal (Normal); Ketone-Dipstick Negative (Negative); Leukocyte Esterase-Dipstick 500 /ul (Negative); Nitrite-Dipstick Negative (Negative); Occult Blood-Urine 25 /ul (Negative); Protein-Dipstick 30 mg/dl (Negative); Specific Gravity, Urine 1.015 (1.002-1.030); Urine Bilirubin Dipstick Negative (Negative); Urine Clarity Clear (Clear); Urine Urobilinogen Normal (Normal)
[2023-06-24 13:36] LABS: Bacteria 1+ /hpf (None Seen); Squamous Epithelial Cells - UA 0-5 SEEN /hpf (5-10); White Blood Cells 50-100 SEEN /hpf (0-5)
== END | disposition home or self-care (01) ==
LOC: LAB 12:02
PROVIDERS: PCP Internal Medicine; Referring Provider Nurse Practitioner Family; Visit Provider Nurse Practitioner Family
DX: R10.13 Epigastric pain (principal); R30.0 Dysuria
CPT/HCPCS: 81001; 87086; 87088

== ENCOUNTER → 2023-08-04 | Outpatient (CLI) | payer MEDICARE, MEDICAID, SELFPAY ==
[2023-08-04 13:47] LABS: Color, Urine Yellow (Yellow); Glucose, Dipstick Normal (Normal); Ketone-Dipstick 5 mg/dl (Negative); Leukocyte Esterase-Dipstick 500 /ul (Negative); Nitrite-Dipstick Negative (Negative); Occult Blood-Urine 50 /ul (Negative); Protein-Dipstick 30 mg/dl (Negative); Urine Bilirubin Dipstick Negative (Negative); Urine Clarity Cloudy (Clear); Urine Urobilinogen Normal (Normal)
[2023-08-04 14:03] LABS: Bacteria 4+ /hpf (None Seen); Mucous, Urine RARE /hpf (<or=2+); Red Blood Cells-Urine 0-5 SEEN /hpf (0-5); Squamous Epithelial Cells - UA 0-5 SEEN /hpf (5-10); White Blood Cells 50-100 SEEN /hpf (0-5)
== END | disposition home or self-care (01) ==
LOC: LAB 13:13
PROVIDERS: PCP Internal Medicine; Referring Provider Nurse Practitioner Family; Visit Provider Nurse Practitioner Family
DX: R30.0 Dysuria (principal)
CPT/HCPCS: 81001; 87077; 87086; 87088; 87186

== ENCOUNTER 2023-11-04 08:43 | Day surgery (SDC) | payer MEDICARE, MEDICAID, SELFPAY ==
[2023-11-04] VITALS (7 sets, daily range): BP systolic 90–153; BP diastolic 69–89; PULSE 58–77; RESP 16–18; TEMP 36.5–36.8; O2SAT 91–97; BMI 31.3
--- NOTE | 2023-11-04 | GASB_PTH ---
PATIENT: LELAND SIMMONS LOC: EN U#:[id number] AGE/SX: 63/F ROOM: RE11/04/[address]: Dr. Felton Brown DO : 1960 BED: DIS: 11/04/2023 SPEC #: [id number] RECD: 11/04/23 13:41 STATUS: NABIL RUTH ANN #: [id number] FERMIN: 11/04/23 00:[address]: Felton Brown DEPT: SURGICAL PATHOLOGY RECD BY: Constantino Ambrosio ENTERED: 11/04/23 13:42 SP TYPE: Gastric Bx EVAN DR: Dr. Zachary Toney MD Tissues: A - Duodenum, NOS B - Gastric mucous membrane Procedures: Surgery Specimen Level IV HEADER OPERATION: Incomplete colonoscopy, EGD with biopsies PRE-OP DIAGNOSIS: Chronic constipation, nausea, vomiting, gastroparesis, diarrhea TISSUE SUBMITTED: A - Duodenum biopsy, B - Gastric body biopsy MICROSCOPIC DIAGNOSIS A. Duodenum, biopsy: Fragments of duodenal mucosa, no pathologic diagnosis. B. Gastric body, biopsy: Mild gastritis. See microscopic description and comment. STEFANY:samira 11/05/2023 COMMENT B. The results of immunohistochemistry for Helicobacter pylori will be reported separately ([id number]). MICROSCOPIC DESCRIPTION Slides are reviewed. B. The specimen shows fragments of gastric mucosa with chronic inflammatory cell infiltrates in the lamina propria consisting of lymphocytes and plasma cells, consistent with mild chronic gastritis. GROSS DESCRIPTION A - Received in fixative is one container labeled with the patient's name and designated duodenum biopsy. The specimen consists of multiple irregular fragments of light contreras soft tissue that in aggregate measure 0.8 x 0.4 x 0.1 cm. The specimen is totally submitted in one cassette. B - Received in fixative is one container labeled with the patient's name and designated gastric body biopsy. The specimen consists of multiple irregular fragments of light contreras soft tissue that in aggregate measure 0.6 x 0.4 x 0.1 cm. The specimen is totally submitted in one cassette. / STEFANY:samira 11/04/2023 TC:5 CPT: 04586 x2
[2023-11-04] MEDS: Lactated Ringers 1,000 ML 15 ML IV (09:19)
[2023-11-04 09:42] LABS: Bedside Glucose 144 mg/dL (74-106)
--- NOTE | 2023-11-04 09:51 | HP.PCM_ITS ---
History and Physical Date of Admission: 11/04/23 63 F who presents to the office today for Prior workup: ? CT abd/pel 05.08.21 adrenal adenoma *BGI established 05.22.21 with abdominal pain, N/V, early satiety and intermittent loose stools. 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 ? EGD 05.28.21 small sliding hiatal hernia; gastric antrum erosions; duodenitis, Mary gland hyperplasia. OV 06.10.21 with improvement of symptoms: loose stools have resolved, intermittent nausea without emesis, abdominal pain or bloating. ? GET 06.11.21 32.83 minutes (). OV 08.12.21 with ongoing improvement of symptoms. Upper abdominal discomfort has lessened. Insulin pump placed last Wednesday. [facility] ED 05.05.23 abdominal pain, N/V and some weight loss of 15-20lbs. Discharged with Phenergan and reglan and Zofran ? CT abd/pel IV only small bowel wall thickening, enterocolitis OV 05.18.23 she has had a return of nausea and emesis. BM have been normal with rare loose stools; continues with Linzess. 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 Suazo updated regarding symptoms and possibility of islet transplantation appropriateness. Start doxycycline ? GET 05.24.23 25.44minutes () Contact 05.28.23 with results: continue workup with endocrinology to manage DMII and in-turn GI symptoms. OV 08.10.23 continues to have nausea and limited emesis with abdominal pain/di [place]om[place]. Hgb A1c 14.5. She now has her insulin pump reattached and reports her sugars have been within her prescribed blood sugar range. Urgent loose stools with urgency related incontinence has been an issue since start of Linzess 145mcg; prior to use of Linzess she did not have urgency or urgency incontinence. ROS Const Constitutional: Positive for headache(s) and weakness ENT ENT: Positive for ear or mastoid pain and headache(s) Cardio Cardiology: Positive for leg pain with exertion Gastro GI: Positive for abdominal pain Genitourinary-Female: Positive for urinary incontinence Musc Musculoskeletal: Positive for joint pain, joint swelling, muscle cramps, muscle weakness, numbness, stiffness, tingling, Arthritis, restless legs, leg pain at night and leg pain with exertion Neuro Neurology: Positive for weakness, headache(s), numbness, tingling and restless legs Psych Psychiatric: Positive for anxiety and Positive for depression Exam Const General: cooperative, healthy appearing, comfortable and no acute distress Nutritional Appearance: obese Orientation: alert, awake and oriented x3 HENMT Head: normal to inspection Ears: hearing grossly normal bilaterally Nose: external nose normal Face and sinus: normal facial exam Eyes General: appearance normal, both eyes and all related structures Alignment and Position: alignment normal Sclera: sclerae normal Neck Neck: normal visual inspection Carotids: normal carotid upstroke Chest Chest palpation & inspection: normal inspection of the chest Resp Effort & Inspection: normal respiratory effort, able to speak in complete sentences, symmetric chest movement, normal respiratory pattern, no audible wheezes and no cough Auscultation: Bilateral: Clear to Auscultation Cardio Rate: regular rate Rhythm: regular rhythm Heart Sounds: S1 normal and S2 normal Bruits: no carotid bruits GI Inspection: normal to inspection and obesity Musc Cervical Spine: normal cervical lordosis Thoracic/Lumbar Spine: thoracic and lumbar spine normal to inspection Skin General: no rashes or lesions noted Lesions: no lesions Rashes: no rashes Trauma: no lacerations or abrasions Wounds: no wounds Neuro General: patient alert, patient awake and patient oriented x3 Cognition: normal cognition Speech: speech normal Gait: normal gait Extrem General: normal to inspection and no pedal edema Psych Appearance: grossly normal Mental Status: mental status grossly normal Mood: congruent mood Affect: normal affect Speech and Movement: speech and movement normal Attitude: cooperative Thought Process: normal Thought Content: normal Judgment: judgment good Quality Reporting Tobacco Screening ([facility]) Smoking Status: Former smoker Assessment and Plan Assessment and Plan (1) Chronic constipation: Status: Chronic (2) Nausea & vomiting: Status: Chronic Qualifiers: Vomiting type: unspecified Qualified Code(s): R11.2 - Nausea with vomiting, unspecified Plan: Nausea vomiting secondary to gastroparesis. She was treated with PPI therapy and Carafate therapy initial course of Reglan therapy she is doing okay from the standpoint hopefully should be able to maintain good glucose control and not have a recurrence of this problem. Consider referral for Islet cell transplantation. (3) Gastroparesis: Status: Chronic Plan: Her glucose is under much better control with the Dexcom insulin pump. She is not having any abdominal pain any cramping. She is watching what she eats has better control of her glucose and feels so much better. (4) Diarrhea: Status: Chronic Qualifiers: Diarrhea type: functional diarrhea Qualified Code(s): K59.1 - Functional diarrhea Plan: Diarrhea secondary to dumping this is greatly improved with history of glucose control which wanted to mainstays of treatment. (5) Abdominal pain: Status: Chronic Qualifiers: Abdominal location: epigastric Qualified Code(s): R10.13 - Epigastric pain Plan: Abdominal pain associated with constipation and incomplete evacuation. She will continue with Linzess for chronic idiopathic constipation we will also give her doxycycline 1 mg p.o. twice daily for associated small bacterial overgrowth with constipation in the setting type 1 diabetes. I have examined the patient and the H&P has been reviewed. There are no clinical changes since date of exam.
--- NOTE | 2023-11-04 10:00 | IMM_PTH ---
PATIENT: LELAND SIMMONS LOC: [facility] U#:[id number] AGE/SX: 63/F ROOM: RE11/04/[address]: Dr. Felton Brown DO : 1960 BED: DIS: 11/04/2023 SPEC #: [id number] RECD: 11/04/23 14:05 STATUS: NABIL RUTH ANN #: [id number] FERMIN: 11/04/23 10:[address]: Felton Brown DEPT: IMMUNOHISTOCHEMISTRY RECD BY: Tahira Jenkins ENTERED: 11/04/23 14:05 SP TYPE: IMMUNO OTHR DR: Dr. Zachary Toney MD Tissues: B - Stomach, NOS Procedures: H Pylori (initial) PHYSICIAN [facility] INSTITUTION [address] [address] SPECIMEN INFORMATION: Tissue Source: B - Gastric body Clinical Info: Chronic constipation, nausea, vomiting, gastroparesis, diarrhea Specimen Number: [id number] CPT code: 11135 METHODOLOGY: Deparaffinized sections of prefer/formalin-fixed tissue or PAP/DQ stained slides are incubated with monoclonal/polyclonal antibodies/oligonucleotide probes. Localization is made via biotin free immunoperoxidase method. Appropriate controls are performed and reacted as expected. Results on target cell population are indicated in the following table: RESULTS: ANTIBODY / CLONE RESULT Block B H Pylori (polyclonal) negative These tests were developed and their performance characteristics determined by [facility]. They may not have been cleared or approved by the U.S. Food and Drug Administration. The FDA has determined that such clearance or approval is not necessary. The above immunohistochemical/dualISH markers are ordered and reviewed by the Pathologist. INTERPRETATION: B. Gastric body, biopsy: Negative for Helicobacter pylori organisms. SJ:samira 11/05/2023
--- NOTE | 2023-11-04 10:42 | OP.EGD_ITS ---
Patient Name: Stefanie Wayne Procedure Date: 11/04/2023 9:50 AM Date of : 1960 Age: 63 Procedure: Upper GI endoscopy Indications: Epigastric abdominal pain Providers: DO Ramez Coley MD: Zachary Toney Medicines: Monitored Anesthesia Care Patient Profile: This is a 63 year old female. Refer to note in patient chart for documentation of history and physical. Patient has symptoms of chronic epigastric abdominal pain. Complications: No immediate complications. Procedure: Pre-Anesthesia Assessment: - Prior to the procedure, a History and Physical was performed, and patient medications and allergies were reviewed. The patient is competent. The risks and benefits of the procedure and the sedation options and risks were discussed with the patient. All questions were answered and informed consent was obtained. Patient identification and proposed procedure were verified by the physician in the pre-procedure area. Mental Status Examination: alert and oriented. Airway Examination: normal oropharyngeal airway and neck mobility. Respiratory Examination: clear to auscultation. CV Examination: normal. Prophylactic Antibiotics: The patient does not require prophylactic antibiotics. Prior Anticoagulants: The patient has taken no anticoagulant or antiplatelet agents. ASA Grade Assessment: II - A patient with mild systemic disease. After reviewing the risks and benefits, the patient was deemed in satisfactory condition to undergo the procedure. The anesthesia plan was to use monitored anesthesia care (MAC). Immediately prior to administration of medications, the patient was re-assessed for adequacy to receive sedatives. The heart rate, respiratory rate, oxygen saturations, blood pressure, adequacy of pulmonary ventilation, and response to care were monitored throughout the procedure. The physical status of the patient was re-assessed after the procedure. After obtaining informed consent, the endoscope was passed under direct vision. Throughout the procedure, the patient's blood pressure, pulse, and oxygen saturations were monitored continuously. The colonoscope was introduced through the mouth, and advanced to the second part of duodenum. The upper GI endoscopy was accomplished without difficulty. The patient tolerated the procedure well. Scope In: 10:01:40 AM Scope Out: 10:06:57 AM Total Procedure Duration Time 0 hours 5 minutes 17 seconds Findings: The examined esophagus was normal. A medium-sized hiatal hernia was present. Patchy mildly erythematous mucosa without bleeding was found in the gastric body. Biopsies were taken with a cold forceps for histology. Verification of patient identification for the specimen was done. Estimated blood loss was minimal. Biopsies were taken with a cold forceps for Helicobacter pylori testing. Verification of patient identification for the specimen was done. Estimated blood loss was minimal. Patchy mildly erythematous mucosa without active bleeding and with no stigmata of bleeding was found in the duodenal bulb. Biopsies were taken with a cold forceps for histology. Verification of patient identification for the specimen was done. Estimated blood loss was minimal. Impression: - Normal esophagus. - Medium-sized hiatal hernia. - Erythematous mucosa in the gastric body. Biopsied. - Erythematous duodenopathy. Biopsied. Recommendation: - Discharge patient to home. - Resume previous diet. - Continue present medications. - Await pathology results. Procedure Code(s): --- Professional --- 49320, Esophagogastroduodenoscopy, flexible, transoral; with biopsy, single or multiple CPT copyright 2021 [employer]. All rights reserved. The codes documented in this report are preliminary and upon violin maker hand review may be revised to meet current compliance requirements. Felton Brown DO 11/04/2023 10:42:23 AM This report has been signed electronically. Number of Addenda: 0 Note Initiated On: 11/04/2023 9:50 AM
--- NOTE | 2023-11-04 10:43 | OP.CCLET_ITS ---
11/04/2023 Zachary Toney [address] [place] [address] Re : Upper GI endoscopy procedure for Stefanie Wayne Dear Dr. Toney This procedure was performed on October. My impressions and recommendations are as follows: Impressions : - Normal esophagus. - Medium-sized hiatal hernia. - Erythematous mucosa in the gastric body. Biopsied. - Erythematous duodenopathy. Biopsied. Recommendations : - Discharge patient to home. - Resume previous diet. - Continue present medications. - Await pathology results. My findings are described in the full procedure note, which is enclosed. If I can be of further assistance, please feel free to contact me at . Sincerely, Felton Brown, 11/04/2023 10:42:23 AM This report has been signed electronically.
--- NOTE | 2023-11-04 10:48 | OP.COLON_ITS ---
Patient Name: Stefanie Wayne Procedure Date: 11/04/2023 10:07 AM Date of : 1960 Age: 63 Procedure: Colonoscopy Indications: Screening for colorectal malignant neoplasm Providers: Felton Brown DO Referring MD: Zachary Toney Medicines: Monitored Anesthesia Care Patient Profile: This is a 63 year old female. Refer to note in patient chart for documentation of history and physical. Patient has symptoms of chronic epigastric abdominal pain. Refer to note in patient chart for documentation of history and physical. Last Colonoscopy: date unknown. Complications: No immediate complications. Procedure: Pre-Anesthesia Assessment: - Prior to the procedure, a History and Physical was performed, and patient medications and allergies were reviewed. The patient is competent. The risks and benefits of the procedure and the sedation options and risks were discussed with the patient. All questions were answered and informed consent was obtained. Patient identification and proposed procedure were verified by the physician in the pre-procedure area. Mental Status Examination: alert and oriented. Airway Examination: normal oropharyngeal airway and neck mobility. Respiratory Examination: clear to auscultation. CV Examination: normal. Prophylactic Antibiotics: The patient does not require prophylactic antibiotics. Prior Anticoagulants: The patient has taken no anticoagulant or antiplatelet agents. ASA Grade Assessment: II - A patient with mild systemic disease. After reviewing the risks and benefits, the patient was deemed in satisfactory condition to undergo the procedure. The anesthesia plan was to use monitored anesthesia care (MAC). Immediately prior to administration of medications, the patient was re-assessed for adequacy to receive sedatives. The heart rate, respiratory rate, oxygen saturations, blood pressure, adequacy of pulmonary ventilation, and response to care were monitored throughout the procedure. The physical status of the patient was re-assessed after the procedure. After I obtained informed consent, the scope was passed under direct vision. Throughout the procedure, the patient's blood pressure, pulse, and oxygen saturations were monitored continuously. The colonoscope was introduced through the anus with the intention of advancing to the hepatic flexure. The scope was advanced to the transverse colon before the procedure was aborted. Medications were given. The colonoscopy was performed without difficulty. The patient tolerated the procedure well. The quality of the bowel preparation was adequate. The rectum was photographed. The colonoscopy was aborted due to the patient's neurologic instability (seizure). Anesthesia staff assisting with sedation did not allow for the successful completion of the procedure. The colonoscopy was performed without difficulty. The patient tolerated the procedure well. The quality of the bowel preparation was adequate. The rectum was photographed. Scope In: 10:09:56 AM Scope Out: 10:13:44 AM Total Procedure Duration Time 0 hours 3 minutes 48 seconds Findings: The perianal and digital rectal examinations were normal. A few small-mouthed diverticula were found in the recto-sigmoid colon and sigmoid colon. The exam was otherwise normal throughout the examined colon. Impression: - The procedure was aborted due to the patient's neurologic instability (seizure). - Diverticulosis in the recto-sigmoid colon and in the sigmoid colon. - No specimens collected. Recommendation: - Send patient to the ED for the evaluation of a new onset seizure - Repeat colonoscopy in 3 months because the examination was incomplete. - Continue present medications. Procedure Code(s): --- Professional --- G0121, 53, Colorectal cancer screening; colonoscopy on individual not meeting criteria for high risk CPT copyright 2021 [employer]. All rights reserved. The codes documented in this report are preliminary and upon multiple resaw operator review may be revised to meet current compliance requirements. Felton Brown DO 11/04/2023 10:48:24 AM This report has been signed electronically. Number of Addenda: 0 Note Initiated On: 11/04/2023 10:07 AM
--- NOTE | 2023-11-04 10:49 | OP.CCLET_ITS ---
11/04/2023 Zachary Toney [address] [place] [address] Re : Colonoscopy procedure for Stefanie Wayne Dear Dr. Toney This procedure was performed on October. My impressions and recommendations are as follows: Impressions : - The procedure was aborted due to the patient's neurologic instability (seizure). - Diverticulosis in the recto-sigmoid colon and in the sigmoid colon. - No specimens collected. Recommendations : - Send patient to the ED for the evaluation of a new onset seizure - Repeat colonoscopy in 3 months because the examination was incomplete. - Continue present medications. My findings are described in the full procedure note, which is enclosed. If I can be of further assistance, please feel free to contact me at . Sincerely, Felton Brown, 11/04/2023 10:48:24 AM This report has been signed electronically.
== END 2023-11-04 11:31 | disposition home or self-care (01) ==
LOC: EN 08:46 → AC 08:47
PROVIDERS: PCP Internal Medicine; Referring Provider Internal Medicine; Visit Provider Internal Medicine Gastroenterology
PROC: 0DJD8ZZ Inspection of Lower Intestinal Tract, Via Natural or Artificial Opening Endoscopic (ICD-10-PCS; CPT 45378; principal; 2023-11-04 09:55)
DX: Z12.11 Encounter for screening for malignant neoplasm of colon (principal); R56.9 Unspecified convulsions; E11.22 Type 2 diabetes mellitus with diabetic chronic kidney disease; Z79.4 Long term (current) use of insulin; N18.30 Chronic kidney disease, stage 3 unspecified; K29.70 Gastritis, unspecified, without bleeding; K31.89 Other diseases of stomach and duodenum; K44.9 Diaphragmatic hernia without obstruction or gangrene; K21.9 Gastro-esophageal reflux disease without esophagitis; K57.30 Diverticulosis of large intestine without perforation or abscess without bleeding; E66.9 Obesity, unspecified; I12.9 Hypertensive chronic kidney disease with stage 1 through stage 4 chronic kidney disease, or unspecified chronic kidney disease; E78.00 Pure hypercholesterolemia, unspecified; F41.9 Anxiety disorder, unspecified; F32.A Depression, unspecified; G47.30 Sleep apnea, unspecified; Z79.899 Other long term (current) drug therapy; Z87.891 Personal history of nicotine dependence; Z53.8 Procedure and treatment not carried out for other reasons
CPT/HCPCS: G0121; 43239; 82962; 88305; 88342; J7120; J2405

== ENCOUNTER 2023-12-17 13:40 | Emergency (ER) | payer MEDICARE, MEDICAID, SELFPAY ==
[2023-12-17 13:43] VITALS: BP 126/73; PULSE 71; RESP 18; TEMP 35.9; O2SAT 100; BMI 31.4
[2023-12-17] MEDS: Oxycodone/Apap 5/325 Tablet PO (15:08)
[2023-12-17] MEDS: Metaxalone 800 MG Tablet PO (15:08)
[2023-12-17 15:11] VITALS: BP 133/68; PULSE 81; RESP 18; TEMP 36.7; O2SAT 99
--- NOTE | 2024-01-07 11:32 | EX.ED.UPPERE ---
HPI History of Present Illness HPI Narrative: 63-year-old female atraumatic right shoulder pain. Denies any fall injury or trauma. Began yesterday. Chief Complaint: Upper Extremity Injury Informant: patient Occured/Mechanism Mechanism/Context: No injury and No blunt trauma Onset/Context/Timing Onset: Today and Yesterday Context: Gradual Onset Timing: Continuous Quality of Pain: Dull and Aching Current Severity: Mild Maximum Severity: Mild Associated Symptoms Associated Symptoms: Negative for Parasthesia or Weakness Narrative Narrative: 63-year-old diabetic female with history of chronic kidney disease complaining of right posterior shoulder and back pain since yesterday. Denies any fall injury or trauma. No other complaints. Dictation being done on 01/07/2024 patient was seen on 12/17/2023 dictation was either missed or lost. Prior similar symptoms: Yes Recent Illness/Hospitalization: No PFSH PFSH Medical History Abdominal pain Acute hypokalemia Acute right flank pain Ambulates with cane Anxiety Arthritis Bacteriuria Cardiology follow-up encounter Depression Diabetes Diarrhea Diarrhea Dietary restriction Fatty liver Former smoker Gastric reflux Gastroparesis GERD (gastroesophageal reflux disease) High cholesterol History of edema History of hiatal hernia History of renal disease History of stress test HTN (hypertension) Hyperlipidemia Injury of head and neck Insulin dependent diabetes mellitus Leg cramps Marijuana use Nausea Nausea & vomiting Obesity Presence of insulin pump Presence of pessary Restless legs Sleep apnea Thyroid disease Wears dentures Wears glasses Home Medications atorvastatin 20 mg tablet 40 mg PO QHS cholesterol 09/22/19 [History Last Taken 11/03/23] lisinopril 20 mg-hydrochlorothiazide 12.5 mg tablet 1 tab PO DAILY bp 09/22/19 [History Last Taken 11/03/23] sertraline 100 mg tablet 100 mg PO DAILY depression 09/22/19 [History Last Taken 11/03/23] pen needle, diabetic 32 gauge x 5/32 (BD Ultra-Fine Sheri Pen Needle) #150 ea 08/01/21 [Rx Last Taken Unknown] omeprazole 40 mg capsule,delayed release 40 mg PO DAILY gerd 12/09/21 [History Last Taken 11/03/23] trazodone 100 mg tablet 100 mg PO QHS insomnia 12/09/21 [History Last Taken 11/02/23] insulin lispro 100 unit/mL subcutaneous solution (Humalog U-100 Insulin) 100 unit subcut DAILY #30 mL 10/14/22 [Rx Last Taken 11/03/23] gabapentin 300 mg capsule 300 mg PO BID pain 12/17/22 [History Last Taken 11/02/23] blood sugar diagnostic (PlaynomicsTouch Ultra Test strips) #100 ea 03/11/23 [Rx Last Taken Unknown] blood-glucose sensor (Dexcom G6 Sensor device) #9 ea 08/04/23 [Rx Last Taken Unknown] blood-glucose transmitter (Dexcom G6 Transmitter device) #1 ea 08/04/23 [Rx Last Taken Unknown] linaclotide 72 mcg capsule (Linzess) 72 mcg PO DAILY #90 caps 09/24/23 [Rx Last Taken 11/02/23] gabapentin 300 mg capsule 900 mg PO QHS 11/02/23 [History Last Taken 11/02/23] dicyclomine 10 mg capsule 10 mg PO TID PRN abdominal pain #90 caps 11/22/23 [Rx Last Taken Unknown] metaxalone 800 mg tablet 800 mg PO TID #20 tabs 12/17/23 [Rx Last Taken Unknown] sucralfate 1 gram tablet 1 g PO ONCE #90 TABLETS 12/20/23 [Rx Last Taken Unknown] Allergy/AdvReac Type Severity Reaction Status Date / Time simvastatin [From Zocor] Allergy Swelling Verified 12/17/23 13:43 Sulfa (Sulfonamide Allergy Swelling Verified 12/17/23 13:43 Antibiotics) Family History Mother Hypertension Lupus Glaucoma Arthritis Neuropathy Brother Diabetes Hypertension Hyperlipemia Surgical History H/O foot surgery h/o left hand surgery History of esophagogastroduodenoscopy (EGD) History of esophagogastroduodenoscopy (EGD) History of hip surgery History of hysterectomy History of left knee surgery History of rotator cuff surgery Hx of colonoscopy Social History household members: other details: daughter housing: house Smoking Status: Former smoker Tobacco: How many years used: 35 alcohol intake: never what type of physical activity do you participate in: none do you feel safe at home: Yes ROS ROS ED ROS Narrative Denies recent illness. Review of Systems ROS Unobtainable: Denies due to encephalopathy Constitutional Constitutional ED: Denies chills or fever(s) Eyes Eyes: Denies blurry vision ENT ENT ED: Denies ear pain Cardiovascular Cardiovascular: Denies chest pain or palpitations Respiratory/Chest Respiratory/Chest: Denies cough or dyspnea Gastrointestinal Gastrointestinal: Denies abdominal pain Genitourinary Genitourinary ED: Denies dysuria or hematuria Musculoskeletal Musculoskeletal: Reports back pain Integumentary Denies abscess or Abrasions Neurologic Neurologic: Denies headache(s) Psychiatric Psychiatric: Denies anxiety Endocrine Endocrinology: Denies cold intolerance Hematologic/Lymphatic Hematologic/Lymphatic: Denies easy bleeding Allergic/Immunologic Allergic/Immunologic ED: Denies mouth swelling, tongue swelling or urticaria EXAM Physical Exam Narrative Exam Narrative: 63-year-old female no acute distress vital signs stable afebrile. H EENT exam unremarkable. Neck nontender. Lungs clear. Heart regular rhythm no murmur. Chest wall and ribs nontender. Abdomen soft nontender. Moving all 4 extremities. Neurovascular intact. Normal strength. Normal range of motion. Neurologic exam awake and alert. No focal motor deficits. Back exam and right shoulder area there is tenderness to the soft tissue around the right shoulder consistent with myofascial strain and spasm. No signs of trauma. No signs of infection. Const Positive well nourished and well developed; Negative for cachectic, contractures or unkempt General Appearance ED: well developed and NAD; Negative for unkempt, cachectic, contractures, cyanotic or diaphoretic Nutritional Appearance: Negative for cachectic HEENT Reports moist mucous membranes normocephalic and atraumatic; Negative for trauma or tenderness Eyes PERRL and EOMs intact bilaterally General Eye ED: Negative for other Neck full ROM and supple General: Negative for tenderness Lymph Lymphatic: Negative for other Chest Wall inspection of chest normal and palpation of chest normal Resp normal respiratory effort and clear to auscultation bilaterally Cardio regular rate, regular rhythm, S1 normal heart sound, S2 normal heart sound and no murmurs Rate: Negative for bradycardia or tachycardic Rhythm: Negative for abnormal rhythm GI non-tender, non-distended and no masses Inspection: Negative for abdominal distention Auscultation: normoactive bowel sounds Palpation: soft; Negative for tender, guarding or rebound tenderness present Back/Spine no CVA tenderness Back/Spine Narrative: Right upper back shoulder tender palpation soft tissue consistent with myofascial strain and spasm. No signs of any trauma or infection. No bony deformity or tenderness. General Back: Negative for CVA tenderness Cervical Spine: Negative for cervical spine tenderness Thoracic Spine / Upper Back: Negative for thoracic spinal tenderness Lumbar Spine / Lower Back: Negative for lumbar spinal tenderness Extremity normal to inspection and full ROM General Extremety ED: Negative for edema or other findings General Extremity: Negative for edema or other findings Neuro oriented x3, CN's II-XII intact bilaterally, moves all extremities, no focal motor deficits and no sensory deficits noted Sensorium / Orientation: alert, oriented to person, oriented to place and oriented to time; Negative for orientation impaired, lethargic or stuporous Motor Exam: strength 5/5 throughout Psych mental status grossly normal Appearance: Negative for unkempt Attitude: No agitated Mood & Affect: Negative for depressed, anxious or tearful Skin General Skin Exam: Negative for petechiae Lesions: no lesions Rashes: no rashes Trauma: no lacerations or abrasions; Negative for abrasion or laceration MDM MDM MDM Narrative Medical decision making narrative: 63-year-old diabetic female who has right upper shoulder and back pain consistent with myofascial strain and spasm. There is no history or signs of trauma. She does not need any imaging or lab work. Treated as a muscle strain and spasm. Placed on a muscle relaxant Skelaxin. Hot shower, warm bath and massage. Follow-up if not improving. Discharge Plan Triage Chief Complaint: Upper Extremity Injury ED Provider: James Brandon Dx/Rx/DC Orders Clinical Impression: History of borderline diabetes mellitus, History of chronic kidney disease, Back muscle spasm Instructions: ED Muscle Spasm Prescriptions: New metaxalone 800 mg tablet 800 mg PO TID Qty: 20 0RF No Action gabapentin 300 mg capsule 300 mg PO BID (DME) Dexcom G6 Sensor Device See Rx Instructions .Route Qty: 9 1RF Rx Instructions: 1 sensor q 10 days (DME) Dexcom G6 Transmitter Device See Rx Instructions .Route Qty: 1 3RF Rx Instructions: 1 transmitter q 90 days atorvastatin 20 MG tablet 40 mg PO QHS lisinopril-hydrochlorothiazide 1 EACH tablet 1 tab PO DAILY Patient Comments: TAKE 1 TABLET BY MOUTH EVERY DAY sertraline 100 MG tablet 100 mg PO DAILY Patient Comments: TAKE 1 TABLET BY MOUTH EVERY DAY omeprazole 40 mg capsule,delayed release(DR/EC) 40 mg PO DAILY Patient Comments: TAKE 1 CAPSULE BY MOUTH EVERY DAY trazodone 100 MG tablet 100 mg PO QHS Rx Instructions: Hold trazodone for 1 week while patient is on Cipro to avoid QTC prolongation gabapentin 300 mg capsule 900 mg PO QHS (DME) pen needle, diabetic [BD Ultra-Fine Sheri Pen Needle] 32 gauge x 5/32 needle See Rx Instructions .ROUTE .MEDSUPPLY Qty: 150 2RF Rx Instructions: 4 time daily insulin lispro [Humalog U-100 Insulin] 100 unit/mL solution 100 unit subcut DAILY Qty: 30 6RF (DME) OneTouch Ultra Test Strip See Rx Instructions .Route Qty: 100 5RF Rx Instructions: 4x/day Linzess 72 mcg capsule 72 mcg PO DAILY Qty: 90 3RF dicyclomine 10 mg capsule 10 mg PO TID PRN (Reason: abdominal pain) Qty: 90 1RF sucralfate 1 gram tablet 1 g PO ONCE Qty: 90 0RF Primary Care Provider: Zachary Toney Referrals: Zachary Toney MD [Primary Care Provider] - As Needed Activity Restrictions/Additional Instructions: You have muscle spasms on your right side of your welcome middle back. Hot shower, whirlpool, massage. Skelaxin which is most relaxant 1 pill 3 times a day for a week. This should progressively improve. If not follow-up with your primary care physician. Disposition Disposition: Home, Self Care Discharge Date/Time: 12/17/23 15:13
== END 2023-12-17 15:13 | disposition home or self-care (01) ==
PROVIDERS: Emergency Provider Emergency Medicine; PCP Internal Medicine; Visit Provider Emergency Medicine
DX: M62.830 Muscle spasm of back (principal); E11.22 Type 2 diabetes mellitus with diabetic chronic kidney disease; I12.9 Hypertensive chronic kidney disease with stage 1 through stage 4 chronic kidney disease, or unspecified chronic kidney disease; N18.9 Chronic kidney disease, unspecified; Z87.891 Personal history of nicotine dependence
CPT/HCPCS: 99282

== ENCOUNTER → 2024-05-09 | Outpatient (CLI) | payer MEDICARE, MEDICAID, SELFPAY ==
[2024-05-09 11:52] LABS: Vitamin D,25 Hydroxy 26.2 ng/mL
[2024-05-09 12:09] LABS: AST(SGOT) 9 U/L (15-37); Alanine Aminotransfer ALT/SGPT 14 U/L (13-56); Albumin, Serum 3.6 g/dL (3.2-5.0); Alkaline Phosphatase 107 U/L (45-117); Anion Gap 6 (5-15); BUN 22 mg/dL (7-18); BUN/Creat Ratio 21.2 RATIO (10-20); Calcium,Total 9.5 mg/dL (8.5-10.1); Chloride 105 mmol/L (98-107); Cholesterol 173 mg/dL (200); Creatinine, Serum 1.04 mg/dL (0.55-1.02); EST Glomerular Filtration Rate 57 mL/min (>60); Est Glom Filt Rate - Afr Amer 69 mL/min (>60); Globulin 3.5 g/dL (2.2-4.2); Glucose 195 mg/dL (74-106); High Density Lipoprotein 51 mg/dL; Potassium 4.1 mmol/L (3.5-5.1); Protein, Total 7.1 g/dL (6.4-8.2); Sodium Level 139 mmol/L (136-145); Thyroid Stim Hormone (TSH) 0.966 uIU/mL (0.358-3.740); Triglycerides 249 mg/dL; Very Low Density Lipoprotein 50 mg/dL (5-40)
[2024-05-09 13:04] LABS: Microalbumin,Random Urine 21.8 mg/L (NO RANGE EST.); Microalbumin:Creatinine Ratio 22.5 mg/g CRE (<30 mg/g CRE)
== END | disposition home or self-care (01) ==
LOC: LAB 10:36
PROVIDERS: PCP Internal Medicine; Referring Provider Nurse Practitioner Family; Visit Provider Nurse Practitioner Family
DX: E10.65 Type 1 diabetes mellitus with hyperglycemia (principal); E55.9 Vitamin D deficiency, unspecified
CPT/HCPCS: 36415; 80053; 80061; 82043; 82306; 82570; 84443

== ENCOUNTER 2024-05-29 01:29 | Emergency (ER) | payer MEDICARE, MEDICAID, SELFPAY ==
[2024-05-29 01:30] VITALS: BP 142/72; PULSE 70; RESP 16; TEMP 36.9; O2SAT 97; BMI 33.8
--- NOTE | 2024-05-29 01:57 | EKG12_ITS ---
Test Reason : CP Blood Pressure : / mmHG Vent. Rate : 070 BPM Atrial Rate : 070 BPM P-R Int : 182 ms QRS Dur : 130 ms QT Int : 414 ms P-R-T Axes : 039 -10 025 degrees QTc Int : 447 ms Sinus rhythm with Premature supraventricular complexes Right bundle branch block Abnormal ECG No previous ECGs available Confirmed by PIETER MARTÍNEZ, LYNN ([id number]), image editor MARTHA MEEHAN ([id number]) on 06/02/2024 11:53:13 AM Referred By: Confirmed By:LYNN STAPLETON MD
--- NOTE | 2024-05-29 01:57 | RAD_ITS ---
STUDY: X-RAY CHEST REASON FOR EXAM: Female, 63 years old patient with chest pain. TECHNIQUE: PA and lateral views of the chest. COMPARISON: Chest radiograph dated April 09, 2021 FINDINGS: Cardiac monitoring leads are present. The lungs are clear and expanded. There is no demonstrated pleural abnormality. Normal size heart. Normal mediastinum and tamica. Normal visualized pulmonary arteries. There is atherosclerotic calcification of the aortic arch with tortuosity. There is demineralization of the osseous structures. There are degenerative changes of the thoracic spine. Patient has had previous cervical spine surgery. There is no demonstrated abnormality of the visualized soft tissue structures of the upper abdomen. RAD/Chest PA and Lateral IMPRESSION: No radiographic evidence of acute cardiopulmonary disease. Electronically Signed: Deepthi Cevallos MD at 2:41 EDT ,
--- NOTE | 2024-05-29 02:10 | EX.ED.DYSGE1 ---
HPI History of Present Illness Chief Complaint: Chest Pain Informant: patient and EMS Narrative Narrative: Patient is a 63-year-old female with past medical history of hypertension hyperlipidemia and insulin-dependent diabetes. She states that throughout the day today/Wednesday she has felt intermittent fluttering and chest tightness. She denies any nausea vomiting diaphoresis or shortness of breath associated with this. She denies any recent travel surgery or history of DVT/PE. She states that she has a significant family history and her brothers who have both had heart attacks. She states that she had difficulty sleeping this evening because of the recurrent symptoms and with concern this could be related to potential cardiac event or potentially even a low potassium as she states she has been admitted in the past for hypokalemia she presents for evaluation [facility] Medical History Insulin dependent diabetes mellitus Ambulates with cane History of renal disease Sleep apnea GERD (gastroesophageal reflux disease) Obesity Presence of pessary Presence of insulin pump Gastroparesis Diabetes Wears glasses Wears dentures Depression Anxiety Marijuana use Thyroid disease Arthritis Fatty liver High cholesterol Restless legs Injury of head and neck Dietary restriction History of hiatal hernia Gastric reflux Former smoker Leg cramps History of edema History of stress test Cardiology follow-up encounter Diarrhea Nausea & vomiting Abdominal pain Diarrhea Nausea Bacteriuria Acute right flank pain Acute hypokalemia Hyperlipidemia HTN (hypertension) Home Medications ?Medication ?Instructions ?Recorded ?Last Taken ?Type lisinopril 20 1 tab PO DAILY bp 09/22/19 11/03/23 History mg-hydrochlorothiazide 12.5 mg tablet sertraline 100 mg tablet 100 mg PO DAILY depression 09/22/19 11/03/23 History pen needle, diabetic 32 gauge x #150 ea 08/01/21 Unknown Rx (BD Ultra-Fine Sheri Pen Needle) omeprazole 40 mg capsule,delayed 40 mg PO DAILY gerd 12/09/21 11/03/23 History release trazodone 100 mg tablet 100 mg PO QHS insomnia 12/09/21 11/02/23 History gabapentin 300 mg capsule 300 mg PO BID pain 12/17/22 11/02/23 History blood sugar diagnostic (OneTouch #100 ea 03/11/23 Unknown Rx Ultra Test strips) linaclotide 72 mcg capsule 72 mcg PO DAILY #90 caps 09/24/23 11/02/23 Rx (Linzess) gabapentin 300 mg capsule 900 mg PO QHS 11/02/23 11/02/23 History dicyclomine 10 mg capsule 10 mg PO TID PRN abdominal pain 02/28/24 Unknown Rx #90 caps insulin lispro 100 unit/mL 100 unit subcut DAILY #30 mL 04/28/24 Unknown Rx subcutaneous solution (Humalog U-100 Insulin) atorvastatin 40 mg tablet 40 mg PO QDAY 05/03/24 Unknown History blood-glucose sensor (Dexcom G7 #9 ea 05/03/24 Unknown Rx Sensor device) empagliflozin 25 mg tablet 25 mg PO QAM #30 tabs 05/03/24 Unknown Rx (Jardiance) mirabegron 50 mg tablet,extended 50 mg PO QDAY 05/03/24 Unknown History release 24 hr (Myrbetriq) hyoscyamine sulfate 0.125 mg tablet 0.125 mg PO BID-QID PRN for 05/16/24 Unknown Rx indigestion #120 TABLETS blood sugar diagnostic (Accu-Chek #100 ea 05/24/24 Unknown Rx Guide test strips) estradiol 0.01% (0.1 mg/gram) 1 appful vaginal QWEEK 05/29/24 Unknown History vaginal cream potassium chloride 10 mEq 10 meq PO DAILY 7 days #7 caps 05/29/24 Unknown Rx capsule,extended release Allergy/AdvReac Type Severity Reaction Status Date / Time simvastatin (From Zocor) Allergy Swelling Verified 05/29/24 01:30 Sulfa (Sulfonamide Allergy Swelling Verified 05/29/24 01:30 Antibiotics) Family History Mother Hypertension Lupus Glaucoma Arthritis Neuropathy Brother Diabetes Hypertension Hyperlipemia Surgical History History of esophagogastroduodenoscopy (EGD) Hx of colonoscopy History of esophagogastroduodenoscopy (EGD) History of hysterectomy H/O foot surgery History of hip surgery History of rotator cuff surgery History of left knee surgery h/o left hand surgery Social History household members: other details: daughter housing: house Smoking Status: Current every day smoker tobacco type: cigarettes Tobacco: How many years used: 35 alcohol intake: never what type of physical activity do you participate in: none do you feel safe at home: Yes ROS ROS ED Constitutional Constitutional ED: Denies chills or fever(s) Eyes Eyes: Denies blurry vision or change in vision ENT ENT ED: Denies sore throat Cardiovascular Cardiovascular: Reports chest pain and palpitations; Denies racing heartbeat Respiratory/Chest Respiratory/Chest: Reports cough; Denies dyspnea Gastrointestinal Gastrointestinal: Denies abdominal pain, diarrhea, nausea or vomiting Genitourinary Genitourinary ED: Denies dysuria Musculoskeletal Musculoskeletal: Denies back pain or myalgias Integumentary Denies rash Neurologic Neurologic: Denies headache(s) Hematologic/Lymphatic Hematologic/Lymphatic: Denies easy bleeding or easy bruising Allergic/Immunologic Allergic/Immunologic ED: Denies mouth swelling or tongue swelling EXAM Physical Exam Const Vital Signs: 05/29/24 01:30 05/29/24 01:36 05/29/24 02:29 Temperature 98.5 F Temperature Source Oral Pulse Rate 70 75 Respiratory Rate 16 16 Respiratory Effort Normal Non-Labored Blood Pressure 142/72 H 126/61 H Blood Pressure Mean 95 82 Pulse Ox 97 95 Oxygen Delivery Method Room Air Room Air 05/29/24 03:00 05/29/24 04:00 05/29/24 04:38 Temperature 98 F Temperature Source Pulse Rate 80 70 65 Respiratory Rate 16 14 16 Respiratory Effort Blood Pressure 128/67 H 113/69 111/64 Blood Pressure Mean 87 83 79 Pulse Ox 96 95 95 Oxygen Delivery Method Room Air Room Air Positive well nourished and well developed General Appearance ED: well developed; Negative for pallor HEENT HEENT Narrative: Normocephalic atraumatic Eyes PERRL and EOMs intact bilaterally General Eye ED: Negative for scleral icterus Neck supple and no JVD Chest Wall palpation of chest normal Chest Narrative: No bony deformity or crepitance noted No pain with palpation Resp normal respiratory effort and clear to auscultation bilaterally Resp Narrative: No nasal flaring retractions tachypnea or accessory muscle use Cardio regular rate and regular rhythm Rate: other Other Details: Heart is regular rate and rhythm without murmurs rubs or gallop Radial and carotid pulses are equal and symmetric No carotid bruit GI normal to inspection, nondistended, normoactive bowel sounds, non-tender, non-distended and no masses GI Narrative: No voluntary guarding or rigidity or pulsatile mass Auscultation: normoactive bowel sounds Palpation: soft Extremity normal to inspection Extremity Narrative: No asymmetric edema no pitting edema negative Homans' sign bilaterally Neuro oriented x3, CN's II-XII intact bilaterally and no sensory deficits noted Sensorium / Orientation: alert Motor Exam: strength 5/5 throughout Psych mental status grossly normal Skin no rashes or lesions noted General Skin Exam: Negative for jaundice or pallor MDM MDM MDM Narrative Medical decision making narrative: Patient arrived to the ER slightly hypertensive but has a past medical history of this. She reported intermittent fluttering and discomfort in her chest throughout the day. She does have multiple risk factors for coronary artery disease. Differential diagnosis is acute coronary syndrome versus cardiac dysrhythmia versus lung pathology such as pneumonia or pneumothorax versus severe electrolyte abnormality versus potential biliary colic acute cholecystitis or pancreatitis. Secondary to his basic labs were obtained as well as an EKG and chest x-ray. EKG displayed sinus rhythm without ischemic changes or dysrhythmia changes. The initial troponin was 8 the delta was 7 and as this stayed flat this goes against acute coronary syndrome. The patient was kept on the monitor and there was no cardiac dysrhythmia noted. Chest x-ray revealed no acute lung pathology such as pneumonia or pneumothorax. Labs showed hypokalemia at 3 and she did have a normal potassium of 4.1 on May 09. Patient reported that she did have a history of hypokalemia and this felt similar nature. A value of 3 is not admission criteria but as she is symptomatic she was given 40 mill equivalents of p.o. potassium and 10 mill equivalents of IV. On reevaluation she is resting comfortably vitals remained stable she has had no further chest discomfort or fluttering sensation. Therefore do not feel there is need for further workup and she is otherwise safe for discharge History & Record Review Discussion w/independent historian: Patient Lab Data Attestation: I reviewed the patient's lab results. Labs: Laboratory Results - last 24 hr 05/29/24 05/29/24 01:24 03:25 WBC 8.5 RBC 4.40 Hgb 11.9 L Hct 37.4 MCV 85.0 MCH 27.0 MCHC 31.8 L RDW Std Deviation 42.4 RDW Coeff of Celine 13.5 Plt Count 283 MPV 10.9 Immature Gran % (Auto) 0.400 Neut % (Auto) 51.0 Lymph % (Auto) 36.2 [place] % (Auto) 9.1 Eos % (Auto) 2.5 Baso % (Auto) 0.8 Absolute Neuts (auto) 4.3 Absolute Lymphs (auto) 3.08 Nucleated RBC % 0 Sodium 137 Potassium 3.0 L Chloride 102 Carbon Dioxide 28.0 Anion Gap 8 BUN 18 Creatinine 1.12 H Estim Creat Clear Calc 55.03 Est GFR (MDRD) Af Amer 63 Est GFR (MDRD) Non-Af 52 L BUN/Creatinine Ratio 16.1 Glucose 134 H Calcium 9.1 Magnesium 2.0 Total Bilirubin 0.30 Direct Bilirubin 0.12 AST 14 L ALT 18 Alkaline Phosphatase 154 H Troponin I High Sens 8 7 Total Protein 7.2 Albumin 3.8 Globulin 3.4 Lipase 35 Radiography Diagnostic Testing: Clinical Impression(s) from Imaging Studies Chest X-Ray 05/29/24 01:57 IMPRESSION: No radiographic evidence of acute cardiopulmonary disease. Electronically Signed: Deepthi Cevallos MD at 2:41 EDT Reading Location ID and State: [address] [place] [address] , Service support , 2 view chest x-ray as interpreted by the emergency medicine physician reveals no acute infiltrate pneumothorax pleural effusion or widening the mediastinum Discharge Plan Triage Chief Complaint: Chest Pain ED Provider: Cecil Sanon Dx/Rx/DC Orders Clinical Impression: Nonspecific chest pain, Acute hypokalemia, HTN (hypertension), Hyperlipidemia, Insulin dependent diabetes mellitus Instructions: Hypokalemia Dc, ED Chest Pain, Uncertain Cause Prescriptions: New potassium chloride 10 mEq capsule, extended release 10 meq PO DAILY 7 Days Qty: 7 0RF No Action gabapentin 300 mg capsule 300 mg PO BID atorvastatin 40 mg tablet 40 mg PO QDAY mirabegron [Myrbetriq] 50 mg tablet extended release 24 hr 50 mg PO QDAY (DME) Dexcom G7 Sensor Device See Rx Instructions .Route Qty: 9 1RF Rx Instructions: 1 sensor q 10 days Jardiance 25 mg tablet 25 mg PO QAM Qty: 30 5RF lisinopril-hydrochlorothiazide 1 EACH tablet 1 tab PO DAILY Patient Comments: TAKE 1 TABLET BY MOUTH EVERY DAY sertraline 100 MG tablet 100 mg PO DAILY Patient Comments: TAKE 1 TABLET BY MOUTH EVERY DAY omeprazole 40 mg capsule,delayed release(DR/EC) 40 mg PO DAILY Patient Comments: TAKE 1 CAPSULE BY MOUTH EVERY DAY trazodone 100 MG tablet 100 mg PO QHS Rx Instructions: Hold trazodone for 1 week while patient is on Cipro to avoid QTC prolongation gabapentin 300 mg capsule 900 mg PO QHS estradiol 0.01 % (0.1 mg/gram) cream 1 appful vaginal QWEEK (DME) pen needle, diabetic [BD Ultra-Fine Sheri Pen Needle] 32 gauge x needle See Rx Instructions .ROUTE .MEDSUPPLY Qty: 150 2RF Rx Instructions: 4 time daily (DME) OneTouch Ultra Test Strip See Rx Instructions .Route Qty: 100 5RF Rx Instructions: 4x/day Linzess 72 mcg capsule 72 mcg PO DAILY Qty: 90 3RF dicyclomine 10 mg capsule 10 mg PO TID PRN (Reason: abdominal pain) Qty: 90 1RF insulin lispro [Humalog U-100 Insulin] 100 unit/mL solution 100 unit subcut DAILY Qty: 30 6RF hyoscyamine sulfate 0.125 mg tablet 0.125 mg PO BID-QID PRN (Reason: for indigestion) Qty: 120 1RF (DME) Accu-Chek Guide test strips Strip See Rx Instructions .Route Qty: 100 3RF Rx Instructions: QID Primary Care Provider: Zachary Toney Referrals: Zachary Toney MD [Primary Care Provider] - Activity Restrictions/Additional Instructions: Please take the potassium supplementation once daily for the next 7 days to bring your value into the normal range. Follow-up with your family doctor and return to the ER should you have any further concerns or worsening of symptoms Print Language: [place] Citizen Disposition Disposition: Home, Self Care Discharge Date/Time: 05/29/24 04:40
[2024-05-29 02:18] LABS: Absolute Lymphocyte Count 3.08 X10^3/uL (0.83-4.51); Absolute Neutrophil Count 4.3 X10^3/uL (2.0-7.7); Basophil# 0.07 X10^3/uL; Basophil% 0.8 % (0-1); Eosinophil# 0.21 X10^3/uL; Eosinophils% 2.5 % (0-5); Hematocrit 37.4 % (37-47); Hemoglobin 11.9 g/dL (12.0-15.0); Lymphocyte # 3.08 X10^3/ul (0.83-4.51); Lymphocyte % 36.2 % (19-41); Mean Corp Hgb Conc 31.8 g/dL (32-36); Mean Platelet Vol. 10.9 fl (6.2-12.0); Monocyte# 0.77 X10^3/uL; Monocyte% 9.1 % (0-10); NRBC Flagged by Analyzer 0 % (0-5); Neutrophil # 4.34 X10^3/uL (2.7-7.7); Platelet Count 283 K/mm3 (150-450); RBC Distribution Width CV 13.5 % (11.6-14.6); RBC Distribution Width SD 42.4 fl (35.1-43.9); White Blood Count 8.5 K/mm3 (4.4-11.0)
[2024-05-29 02:29] VITALS: BP 126/61; PULSE 75; RESP 16; O2SAT 95
[2024-05-29 02:39] LABS: AST(SGOT) 14 U/L (15-37); Alanine Aminotransfer ALT/SGPT 18 U/L (13-56); Albumin, Serum 3.8 g/dL (3.2-5.0); Alkaline Phosphatase 154 U/L (45-117); Anion Gap 8 (5-15); BUN 18 mg/dL (7-18); BUN/Creat Ratio 16.1 RATIO (10-20); Bilirubin, Direct 0.12 mg/dL (0.00-0.30); Calcium,Total 9.1 mg/dL (8.5-10.1); Chloride 102 mmol/L (98-107); Creatinine, Serum 1.12 mg/dL (0.55-1.02); EST Glomerular Filtration Rate 52 mL/min (>60); Est Glom Filt Rate - Afr Amer 63 mL/min (>60); Estimated Creatinine Clearance 55.03 ml/min; Globulin 3.4 g/dL (2.2-4.2); Glucose 134 mg/dL (74-106); Lipase 35 U/L (13-75); Protein, Total 7.2 g/dL (6.4-8.2); Sodium Level 137 mmol/L (136-145); Troponin-I HS 8 pg/mL (3.0-54.0)
[2024-05-29 03:00] VITALS: BP 128/67; PULSE 80; RESP 16; O2SAT 96
[2024-05-29] MEDS: Potassium Chloride 10mEq/100mL 10 MEQ/100 ML IV.SOLN. 100 MEQ IV BOLUS (03:17)
[2024-05-29] MEDS: Potassium Chloride Oral Tablet 20 MEQ 40 MEQ PO (03:17)
[2024-05-29 04:00] VITALS: BP 113/69; PULSE 70; RESP 14; O2SAT 95
[2024-05-29 04:09] LABS: Troponin-I HS 7 pg/mL (3.0-54.0)
[2024-05-29 04:38] VITALS: BP 111/64; PULSE 65; RESP 16; TEMP 36.6; O2SAT 95
== END 2024-05-29 04:40 | disposition home or self-care (01) ==
PROVIDERS: Emergency Provider Emergency Medicine; PCP Internal Medicine; Visit Provider Emergency Medicine
DX: R07.89 Other chest pain (principal); E11.43 Type 2 diabetes mellitus with diabetic autonomic (poly)neuropathy; Z79.4 Long term (current) use of insulin; I10 Essential (primary) hypertension; E87.6 Hypokalemia; E78.00 Pure hypercholesterolemia, unspecified; F17.210 Nicotine dependence, cigarettes, uncomplicated; K31.84 Gastroparesis; K21.9 Gastro-esophageal reflux disease without esophagitis; F41.9 Anxiety disorder, unspecified; F32.A Depression, unspecified; E66.9 Obesity, unspecified; M19.90 Unspecified osteoarthritis, unspecified site; G47.30 Sleep apnea, unspecified; G25.81 Restless legs syndrome; Z88.2 Allergy status to sulfonamides; Z96.41 Presence of insulin pump (external) (internal); Z82.49 Family history of ischemic heart disease and other diseases of the circulatory system; Z79.899 Other long term (current) drug therapy
CPT/HCPCS: 71046; 80048; 80076; 83690; 83735; 84484; 85025; 93005; 96365; 99284; J7040

== ENCOUNTER 2024-09-27 10:31 | Day surgery (SDC) | payer MEDICARE, MEDICAID, SELFPAY ==
--- NOTE | 2024-09-25 16:08 | PAT.ANE_ITS ---
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 When Was Last Pacemaker Check QUESTION #4 FULL TEXT: You/Your Family Experience fever (hyperthermia) with Anesthesia Last Oral Intake Last Oral intake: Last Oral Intake NPO since Meds taken in AM with sips of water? 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 - meteorological equipment repairer: PONV - meteorological equipment repairer Female Yes 09/25/24 14:01 HX of Motion Sickness No 09/25/24 14:01 HX of N/V After Surgery No 09/25/24 14:01 Non-Smoker Yes 09/25/24 14:01 Duration of Surgery greater No 09/25/24 14:01 than 60 minutes Number of Risk Factors 2 09/25/24 14:01 PONV Score Moderate Risk 09/25/24 14:01 Height & Weight Height & Weight: Anesthesia: Height & Weight Height 5 ft 3 in 05/29/24 01:30 Respiratory Assessment Respiratory Assessment - meteorological equipment repairer: Respiratory Tract Infection Hx - meteorological equipment repairer Hx Respiratory Tract Infection No 09/25/24 14:01 STOP Sleep Apnea STOP Sleep Apnea - meteorological equipment repairer: STOP Sleep Apnea - meteorological equipment repairer Hx Hypertension Yes: CONTROLLED WITH MED 09/25/24 14:01 Hx Sleep Apnea Yes 09/25/24 14:01 CPAP Yes: NONCOMPLIANT 09/25/24 14:01 BIPAP No 09/25/24 14:01 Do you snore loudly (louder than talking or can be heard Do you often feel tired/ fatigued/ sleepy during daytime? Has anyone observed you stop breathing during sleep? STOP Results Positive 09/25/24 14:01 QUESTION #5 FULL TEXT : Do you snore loudly (louder than talking or can be heard through closed doors)? 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 Specify any problems Hx of Preganancy in last 3 No 09/25/24 14:01 Months Nurse Filling Out Transfusion DSCHRIBER 09/25/24 14:01 & Questions: Date: 09/25/24 09/25/24 14:01 Time: 14:03 09/25/24 14:01 Patient unable to answer at this time (ie. confused, unrespo /Reproduction History /Reproductive History - meteorological equipment repairer: /Reproductive Hx- meteorological equipment repairer Hx Now No 09/25/24 14:01 Gestational Age (in weeks): EDC: Hx Hx Para Hx Section SAB No 09/25/24 14:01 [facility] Medical History (Updated 09/25/24 @ 14:06 by Florence Piedra) Insulin dependent diabetes mellitus Ambulates with cane History of renal disease GERD (gastroesophageal reflux disease) Obesity Presence of pessary Presence of insulin pump Gastroparesis Diabetes Wears glasses Wears dentures Depression Anxiety Marijuana use Thyroid disease Arthritis Fatty liver High cholesterol Restless legs Injury of head and neck Dietary restriction History of hiatal hernia Former smoker Leg cramps History of edema History of stress test Cardiology follow-up encounter Diarrhea Nausea & vomiting Abdominal pain Diarrhea Nausea Acute right flank pain Acute hypokalemia Hyperlipidemia HTN (hypertension) Home Medications ?Medication ?Instructions ?Recorded ?Last Taken ?Type lisinopril 20 1 tab PO DAILY bp 09/22/19 11/03/23 History mg-hydrochlorothiazide 12.5 mg tablet sertraline 100 mg tablet 100 mg PO DAILY depression 09/22/19 11/03/23 History pen needle, diabetic 32 gauge x #150 ea 08/01/21 Unknown Rx 5/32 (BD Ultra-Fine Sheri Pen Needle) omeprazole 40 mg capsule,delayed 40 mg PO BID gerd 12/09/21 11/03/23 History release trazodone 100 mg tablet 100 mg PO QHS insomnia 12/09/21 11/02/23 History gabapentin 300 mg capsule 300 mg PO BID pain 12/17/22 11/02/23 History blood sugar diagnostic (OneTouch #100 ea 03/11/23 Unknown Rx Ultra Test strips) gabapentin 300 mg capsule 900 mg PO QHS 11/02/23 11/02/23 History atorvastatin 40 mg tablet 40 mg PO QHS 05/03/24 Unknown History blood-glucose sensor (Dexcom G7 #9 ea 05/03/24 Unknown Rx Sensor device) empagliflozin 25 mg tablet 25 mg PO QAM #30 tabs 05/03/24 09/24/24 Rx (Jardiance) mirabegron 50 mg tablet,extended 50 mg PO QDAY 05/03/24 Unknown History release 24 hr (Myrbetriq) blood sugar diagnostic (Accu-Chek #100 ea 05/24/24 Unknown Rx Guide test strips) estradiol 0.01% (0.1 mg/gram) 1 appful vaginal QWEEK 05/29/24 Unknown History vaginal cream pen needle, diabetic 32 gauge x #50 ea 06/27/24 Unknown Rx 5/32 (BD Ultra-Fine Sheri Pen Needle) insulin lispro 100 unit/mL 1 unit subcut CONT hyperglycemia 09/25/24 Unknown History subcutaneous cartridge Allergy/AdvReac Type Severity Reaction Status Date / Time simvastatin (From Zocor) Allergy Swelling Verified 09/25/24 13:55 Sulfa (Sulfonamide Allergy Swelling Verified 09/25/24 13:55 Antibiotics) Family History Mother Hypertension Lupus Glaucoma Arthritis Neuropathy Brother Diabetes Hypertension Hyperlipemia Surgical History (Updated 09/25/24 @ 14:06 by Florence Piedra) History of esophagogastroduodenoscopy (EGD) Hx of colonoscopy History of esophagogastroduodenoscopy (EGD) History of hysterectomy H/O foot surgery History of hip surgery History of rotator cuff surgery History of left knee surgery h/o left hand surgery Social History household members: other details: daughter housing: house Smoking Status: Former smoker Tobacco: How many years used: 35 alcohol intake: never what type of physical activity do you participate in: none do you feel safe at home: Yes Audit: Pertinent Findings Pertinent Findings EKG Perinent findings: NSR. occasional SVT Consult pertinent findings: No new investigation needed given non-recurrent nature of seizure Recommendation Anesthesia Recommendation Anesthesia recommendation: OPTIMIZED for anesthesia
[2024-09-27] VITALS (7 sets, daily range): BP systolic 80–122; BP diastolic 54–75; PULSE 68–72; RESP 16; TEMP 36.1–36.6; O2SAT 86–96; BMI 29.2
--- NOTE | 2024-09-27 10:58 | PCM.HP.STD ---
HPI - General General Date of Admission: 09/27/24 Date of Service: 09/27/24 Chief Complaint: Abdominal pain HPI Narrative is a 63 F who presents for endoscopic evaluation of abdominal pain. Prior workup: ? CT abd/pel 05.08.21 adrenal adenoma *BGI established 05.22.21 with abdominal pain, N/V, early satiety and intermittent loose stools. 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 ? EGD 05.28.21 small sliding hiatal hernia; gastric antrum erosions; duodenitis, Mary gland hyperplasia. OV 06.10.21 with improvement of symptoms: loose stools have resolved, intermittent nausea without emesis, abdominal pain or bloating. ? GET 06.11.21 32.83 minutes (). OV 08.12.21 with ongoing improvement of symptoms. Upper abdominal discomfort has lessened. Insulin pump placed last Wednesday. [facility] ED 05.05.23 abdominal pain, N/V and some weight loss of 15-20lbs. Discharged with Phenergan and reglan and Zofran ? CT abd/pel IV only small bowel wall thickening, enterocolitis OV 05.18.23 she has had a return of nausea and emesis. BM have been normal with rare loose stools; continues with Linzess. Her insulin pump has been removed and she is no longer having her DMII managed (Dr. Lucie Suazo software packager who has been working at and received approval for closed loop monitoring); Dr. Suazo updated regarding symptoms and possibility of islet transplantation appropriateness. Start doxycycline ? GET 05.24.23 25.44minutes () Contact 05.28.23 with results: continue workup with endocrinology to manage DMII and in-turn GI symptoms. OV 08.10.23 continues to have nausea and limited emesis with abdominal pain/discomfort. Hgb A1c 14.5. She now has her insulin pump reattached and reports her sugars have been within her prescribed blood sugar range. Urgent loose stools with urgency related incontinence has been an issue since start of Linzess 145mcg; prior to use of Linzess she did not have urgency or urgency incontinence. EGD & Colonoscopy .03.22 Colon - The procedure was aborted due to the patient's neurologic instability (seizure). Diverticulosis in the recto-sigmoid colon and in the sigmoid colon. No specimens collected. EGD - Normal esophagus. Medium-sized hiatal hernia. Erythematous mucosa in the gastric body. Biopsied. Erythematous duodenopathy. Biopsied. [facility] ED 01.07.24 back muscle spasms OV 01.17.24 pt reports that the linzess has been effective and is having a daily bm as long as she does not run out. Pt reports worsened symptoms of GERD and acid reflux. Pt reports continuing omeprazole, but stopped Carafate because it was dissolving in her mouth before she could swallow it. OV 07.24.24- Patient states ongoing constipation. Has a BM every few days. Takes Linzess 72mcg. Wants to try increasing dose. Daily abdominal pain and bloating. Contiunes with Omeprazole for heartburn. Is mostly controlled. lubiprostone (Amitiza) 8 mcg PO BID 60 caps 3RF PFSH Medical History Insulin dependent diabetes mellitus Ambulates with cane History of renal disease GERD (gastroesophageal reflux disease) Obesity Presence of pessary Presence of insulin pump Gastroparesis Diabetes Wears glasses Wears dentures Depression Anxiety Marijuana use Thyroid disease Arthritis Fatty liver High cholesterol Restless legs Injury of head and neck Dietary restriction History of hiatal hernia Former smoker Leg cramps History of edema History of stress test Cardiology follow-up encounter Diarrhea Nausea & vomiting Abdominal pain Diarrhea Nausea Acute right flank pain Acute hypokalemia Hyperlipidemia HTN (hypertension) Home Medications ?Medication ?Instructions ?Recorded ?Last Taken ?Type lisinopril 20 1 tab PO DAILY bp 09/22/19 11/03/23 History mg-hydrochlorothiazide 12.5 mg tablet sertraline 100 mg tablet 100 mg PO DAILY depression 09/22/19 11/03/23 History pen needle, diabetic 32 gauge x #150 ea 08/01/21 Unknown Rx (BD Ultra-Fine Sheri Pen Needle) omeprazole 40 mg capsule,delayed 40 mg PO BID gerd 12/09/21 11/03/23 History release trazodone 100 mg tablet 100 mg PO QHS insomnia 12/09/21 11/02/23 History gabapentin 300 mg capsule 300 mg PO BID pain 12/17/22 11/02/23 History blood sugar diagnostic (OneTouch #100 ea 03/11/23 Unknown Rx Ultra Test strips) gabapentin 300 mg capsule 900 mg PO QHS 11/02/23 11/02/23 History atorvastatin 40 mg tablet 40 mg PO QHS 05/03/24 Unknown History blood-glucose sensor (Dexcom G7 #9 ea 05/03/24 Unknown Rx Sensor device) empagliflozin 25 mg tablet 25 mg PO QAM #30 tabs 05/03/24 09/24/24 Rx (Jardiance) mirabegron 50 mg tablet,extended 50 mg PO QDAY 05/03/24 Unknown History release 24 hr (Myrbetriq) blood sugar diagnostic (Accu-Chek #100 ea 05/24/24 Unknown Rx Guide test strips) estradiol 0.01% (0.1 mg/gram) 1 appful vaginal QWEEK 05/29/24 Unknown History vaginal cream pen needle, diabetic 32 gauge x #50 ea 06/27/24 Unknown Rx (BD Ultra-Fine Sheri Pen Needle) insulin lispro 100 unit/mL 1 unit subcut CONT hyperglycemia 09/25/24 Unknown History subcutaneous cartridge cholecalciferol (vitamin D3) 100 2,000 unit PO BID 09/27/24 Unknown History mcg (4,000 unit) capsule Allergy/AdvReac Type Severity Reaction Status Date / Time simvastatin (From Zocor) Allergy Swelling Verified 09/27/24 10:56 Sulfa (Sulfonamide Allergy Swelling Verified 09/27/24 10:56 Antibiotics) Family History Mother Hypertension Lupus Glaucoma Arthritis Neuropathy Brother Diabetes Hypertension Hyperlipemia Surgical History History of esophagogastroduodenoscopy (EGD) Hx of colonoscopy History of esophagogastroduodenoscopy (EGD) History of hysterectomy H/O foot surgery History of hip surgery History of rotator cuff surgery History of left knee surgery h/o left hand surgery Social History household members: other details: daughter housing: house Smoking Status: Former smoker Tobacco: How many years used: 35 alcohol intake: never what type of physical activity do you participate in: none do you feel safe at home: Yes ROS Constitutional Constitutional: Denies fatigue, fever(s), poor appetite, weight gain or weight loss Gastrointestinal Gastrointestinal: Denies belching, bloating, change in bowel habits, change in stool character, chewing difficulty, coffee ground emesis, constipation, cramping, diarrhea, dyspepsia, dysphagia, early satiety, excessive flatus, fecal incontinence, heartburn, hematemesis, hematochezia, hemorrhoids, loose stools, melena, nausea, odynophagia, rectal bleeding, tenesmus, vomiting or weight changes Physical Exam Const alert, oriented x3, no apparent distress and healthy appearing General Appearance: cooperative GI normal to inspection, nondistended, normoactive bowel sounds, soft to palpation, non-tender and non-distended Percussion: normal to percussion Rectal Exam: deferred Assessment & Plan Assessment/Plan (1) Abdominal pain: QUALIFIERS: Abdominal location: epigastric Qualified Code(s): R10.13 - Epigastric pain PLAN: Assessment and Plan Assessment and Plan (1) Chronic constipation: Status: Chronic Plan: She needs to have a colonoscopy. Therefore because of her history of polyps we will schedule her for repeat colonoscopy. (2) Nausea & vomiting: Status: Chronic Qualifiers: Vomiting type: unspecified Qualified Code(s): R11.2 - Nausea with vomiting, unspecified Plan: Nausea vomiting secondary to gastroparesis. She was treated with PPI therapy and Carafate therapy initial course of Reglan therapy she is doing okay from the standpoint hopefully should be able to maintain good glucose control and not have a recurrence of this problem. I will give her a scopolamine patch in the interim with as needed hyoscyamine. (3) Gastroparesis: Status: Chronic Plan: Her glucose is under much better control with the Dexcom insulin pump. She is not having any abdominal pain any cramping. She is watching what she eats has better control of her glucose and feels so much better. (4) Diarrhea: Status: Chronic Qualifiers: Diarrhea type: functional diarrhea Qualified Code(s): K59.1 - Functional diarrhea Plan: Diarrhea secondary to dumping this is greatly improved with history of glucose control which wanted to mainstays of treatment. This has resolved and she is currently experiencing abdominal pain secondary to constipation. (5) Abdominal pain: Status: Chronic Qualifiers: Abdominal location: epigastric Qualified Code(s): R10.13 - Epigastric pain Plan: Abdominal pain associated with constipation and incomplete evacuation. She continued with Linzess for chronic idiopathic constipation we will also gave her doxycycline 1 mg p.o. twice daily for associated small bacterial overgrowth with constipation in the setting type 1 diabetes. We had to decrease to Linzess from 145 to 72 mcg a day. If she takes to 145 mcg dose then she has diarrhea. She is currently on 72 mcg a day and not having good bowel movements. We will switch her to Amitiza 8 mg p.o. twice daily. Medications: New lubiprostone (Amitiza) 8 mcg PO BID 60 caps 3RF
[2024-09-27 11:26] LABS: Bedside Glucose 135 mg/dL (74-106)
--- NOTE | 2024-09-27 11:50 | PCM.PRE.AN2 ---
ASA Classification* ASA Classification ASA Classification: 2 and 3 Assessment & Plan Anesthesia* Anesthesia Assessment Anesthesia Assessment: Discussed sedation and/or anesthesia options, risks, benefits, and alternatives with patient/parents/legal guardian/POA. Questions invited. The patient/parents/legal guardian/POA seems to understand and agrees to proceed with anesthesia plan. Reviewed the physical assessment, medical history, allergy history and patient home medications list prior to surgery/procedure/anesthetic and documented any changes. Performed airway and anesthesia risk assessments. Anesthesia Type Anesthesia Type: MAC History Source History Obtained from:: Patient and Chart Anesthesia Focused Assessment* Temperature: 97.8 F Pulse Rate: 72 Blood Pressure: 122/75 Respiratory Rate: 16 Pulse Ox: 96 Oxygen Delivery Method: Room Air Airway Assessment Mouth opens: >3 cm Mallampati Score: II Teeth Condition: Intact Neck Range of motion (ROM): Full ROM Focused Labs Anesthesia Preop lab: CBC WBC 8.5 K/mm3 (4.4-11.0) 05/29/24 01:24 RBC 4.40 M/mm3 (4.2-5.4) 05/29/24 01:24 Hgb 11.9 g/dL (12.0-15.0) L 05/29/24 01:24 Hct 37.4 % (37-47) 05/29/24 01:24 Plt Count 283 K/mm3 (150-450) 05/29/24 01:24 CHEMISTRY Potassium 3.0 mmol/L (3.5-5.1) L 05/29/24 01:24 Sodium 137 mmol/L (136-145) 05/29/24 01:24 Magnesium 2.0 mg/dL (1.6-2.6) 05/29/24 01:24 Phosphorus 3.9 mg/dL (2.5-4.9) 05/09/21 04:56 BUN 18 mg/dL (7-18) 05/29/24 01:24 Creatinine 1.12 mg/dL (0.55-1.02) H 05/29/24 01:24 Glucose 134 mg/dL (74-106) H 05/29/24 01:24 POC Glucose 135 mg/dL (74-106) H 09/27/24 10:54 TSH 0.966 uIU/mL (0.358-3.740) 05/09/24 10:38 COAG Pre-Assessment Diagnosis/Proposed Procedure Planned Operative Procedure(s): CSCOPE Anesthesia History 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 When Was Last Pacemaker Check QUESTION #4 FULL TEXT: You/Your Family Experience fever (hyperthermia) with Anesthesia Last Oral Intake Last Oral intake: Last Oral Intake NPO since 07:30 09/27/24 11:00 Meds taken in AM with sips of No 09/27/24 11:00 water? 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 - administrative manager: PONV - administrative manager Female Yes 09/25/24 14:01 HX of Motion Sickness No 09/25/24 14:01 HX of N/V After Surgery No 09/25/24 14:01 Non-Smoker Yes 09/25/24 14:01 Duration of Surgery greater No 09/25/24 14:01 than 60 minutes Number of Risk Factors 2 09/25/24 14:01 PONV Score Moderate Risk 09/25/24 14:01 Height & Weight Height & Weight: Anesthesia: Height & Weight Height 5 ft 3 in 09/27/24 11:00 Weight: 75 kg 09/27/24 11:00 Body Mass Index (BMI) 29.2 09/27/24 11:00 Respiratory Assessment Respiratory Assessment - administrative manager: Respiratory Tract Infection Hx - administrative manager Hx Respiratory Tract Infection No 09/25/24 14:01 STOP Sleep Apnea STOP Sleep Apnea - administrative manager: STOP Sleep Apnea - administrative manager Hx Hypertension Yes: CONTROLLED WITH MED 09/25/24 14:01 Hx Sleep Apnea Yes 09/25/24 14:01 CPAP Yes: NONCOMPLIANT 09/25/24 14:01 BIPAP No 09/25/24 14:01 Do you snore loudly (louder than talking or can be heard Do you often feel tired/ fatigued/ sleepy during daytime? Has anyone observed you stop breathing during sleep? STOP Results Positive 09/25/24 14:01 QUESTION #5 FULL TEXT : Do you snore loudly (louder than talking or can be heard through closed doors)? 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 Specify any problems Hx of Preganancy in last 3 No 09/25/24 14:01 Months Nurse Filling Out Transfusion DSCHRIBER 09/25/24 14:01 & Questions: Date: 09/25/24 09/25/24 14:01 Time: 14:03 09/25/24 14:01 Patient unable to answer at this time (ie. confused, unrespo /Reproduction History /Reproductive History - administrative manager: /Reproductive Hx- administrative manager Hx Now No 09/25/24 14:01 Gestational Age (in weeks): EDC: Hx Hx Para Hx Section SAB No 09/25/24 14:01 PFSH Medical History Insulin dependent diabetes mellitus Ambulates with cane History of renal disease GERD (gastroesophageal reflux disease) Obesity Presence of pessary Presence of insulin pump Gastroparesis Diabetes Wears glasses Wears dentures Depression Anxiety Marijuana use Thyroid disease Arthritis Fatty liver High cholesterol Restless legs Injury of head and neck Dietary restriction History of hiatal hernia Former smoker Leg cramps History of edema History of stress test Cardiology follow-up encounter Diarrhea Nausea & vomiting Abdominal pain Diarrhea Nausea Acute right flank pain Acute hypokalemia Hyperlipidemia HTN (hypertension) Home Medications ?Medication ?Instructions ?Recorded ?Last Taken ?Type lisinopril 20 1 tab PO DAILY bp 09/22/19 09/26/24 History mg-hydrochlorothiazide 12.5 mg tablet sertraline 100 mg tablet 100 mg PO DAILY depression 09/22/19 09/26/24 History pen needle, diabetic 32 gauge x #150 ea 08/01/21 Unknown Rx (BD Ultra-Fine Sheri Pen Needle) omeprazole 40 mg capsule,delayed 40 mg PO BID gerd 12/09/21 09/27/24 History release trazodone 100 mg tablet 100 mg PO QHS insomnia 12/09/21 09/26/24 History gabapentin 300 mg capsule 300 mg PO BID pain 12/17/22 09/27/24 History blood sugar diagnostic (OneTouch #100 ea 03/11/23 Unknown Rx Ultra Test strips) gabapentin 300 mg capsule 900 mg PO QHS 11/02/23 09/26/24 History atorvastatin 40 mg tablet 40 mg PO QHS 05/03/24 09/26/24 History blood-glucose sensor (Dexcom G7 #9 ea 05/03/24 Unknown Rx Sensor device) empagliflozin 25 mg tablet 25 mg PO QAM #30 tabs 05/03/24 09/24/24 Rx (Jardiance) mirabegron 50 mg tablet,extended 50 mg PO QDAY 05/03/24 09/27/24 History release 24 hr (Myrbetriq) blood sugar diagnostic (Accu-Chek #100 ea 05/24/24 Unknown Rx Guide test strips) estradiol 0.01% (0.1 mg/gram) 1 appful vaginal QWEEK 05/29/24 09/18/24 History vaginal cream pen needle, diabetic 32 gauge x #50 ea 06/27/24 Unknown Rx (BD Ultra-Fine Sheri Pen Needle) insulin lispro 100 unit/mL 1 unit subcut CONT hyperglycemia 09/25/24 09/27/24 History subcutaneous cartridge cholecalciferol (vitamin D3) 100 2,000 unit PO BID 09/27/24 Unknown History mcg (4,000 unit) capsule Allergy/AdvReac Type Severity Reaction Status Date / Time simvastatin (From Zocor) Allergy Swelling Verified 09/27/24 10:56 Sulfa (Sulfonamide Allergy Swelling Verified 09/27/24 10:56 Antibiotics) Family History Mother Hypertension Lupus Glaucoma Arthritis Neuropathy Brother Diabetes Hypertension Hyperlipemia Surgical History History of esophagogastroduodenoscopy (EGD) Hx of colonoscopy History of esophagogastroduodenoscopy (EGD) History of hysterectomy H/O foot surgery History of hip surgery History of rotator cuff surgery History of left knee surgery h/o left hand surgery Social History household members: other details: daughter housing: house Smoking Status: Former smoker Tobacco: How many years used: 35 alcohol intake: never what type of physical activity do you participate in: none do you feel safe at home: Yes Review of Systems (Anesthesia) ROS Narrative System reviewed and no additional complaints, except as documented.
--- NOTE | 2024-09-27 12:44 | OP.COLON_ITS ---
Patient Name: Stefanie Wayne Procedure Date: 09/27/2024 12:10 PM Date of : 1960 Age: 64 Procedure: Colonoscopy Indications: Abdominal pain in the left lower quadrant, Periumbilical abdominal pain Providers: Felton Brown DO Referring MD: Zachary Toney Medicines: Monitored Anesthesia Care Patient Profile: This is a 64 year old female. Refer to note in patient chart for documentation of history and physical. Last Colonoscopy: 3 years ago. Complications: No immediate complications. Procedure: Pre-Anesthesia Assessment: - Prior to the procedure, a History and Physical was performed, and patient medications and allergies were reviewed. The patient is competent. The risks and benefits of the procedure and the sedation options and risks were discussed with the patient. All questions were answered and informed consent was obtained. Patient identification and proposed procedure were verified by the physician in the pre-procedure area. Mental Status Examination: alert and oriented. Airway Examination: normal oropharyngeal airway and neck mobility. Respiratory Examination: clear to auscultation. CV Examination: normal. Prophylactic Antibiotics: The patient does not require prophylactic antibiotics. Prior Anticoagulants: The patient has taken no anticoagulant or antiplatelet agents except for NSAID medication. ASA Grade Assessment: II - A patient with mild systemic disease. After reviewing the risks and benefits, the patient was deemed in satisfactory condition to undergo the procedure. The anesthesia plan was to use monitored anesthesia care (MAC). Immediately prior to administration of medications, the patient was re-assessed for adequacy to receive sedatives. The heart rate, respiratory rate, oxygen saturations, blood pressure, adequacy of pulmonary ventilation, and response to care were monitored throughout the procedure. The physical status of the patient was re-assessed after the procedure. After I obtained informed consent, the scope was passed under direct vision. Throughout the procedure, the patient's blood pressure, pulse, and oxygen saturations were monitored continuously. The colonoscope was introduced through the anus and advanced to the cecum, identified by appendiceal orifice and ileocecal valve. The colonoscopy was performed without difficulty. The patient tolerated the procedure well. The quality of the bowel preparation was adequate. The ileocecal valve, appendiceal orifice, and rectum were photographed. Scope In: 12:22:17 PM Scope Withdrawal Time 0 hours 5 minutes 47 seconds Scope Out: 12:34:14 PM Total Procedure Duration Time 0 hours 11 minutes 57 seconds Findings: The perianal and digital rectal examinations were normal. Multiple small-mouthed diverticula were found in the recto-sigmoid colon and sigmoid colon. Swelling from recent diverticulitis. The exam was otherwise without abnormality on direct and retroflexion views. Impression: - Diverticulosis in the recto-sigmoid colon and in the sigmoid colon. There was some swelling seen from recent diverticulitis. - The examination was otherwise normal on direct and retroflexion views. - No specimens collected. Recommendation: - Discharge patient to home. - Resume previous diet. - Continue present medications. - Repeat colonoscopy in 5 years for surveillance. Procedure Code(s): --- Professional --- 48132, Colonoscopy, flexible; diagnostic, including collection of specimen(s) by brushing or washing, when performed (separate procedure) CPT copyright 2021 [employer]. All rights reserved. The codes documented in this report are preliminary and upon auditing coder review may be revised to meet current compliance requirements. Felton Brown DO 09/27/2024 12:44:01 PM This report has been signed electronically. Number of Addenda: 0 Note Initiated On: 09/27/2024 12:10 PM
--- NOTE | 2024-09-27 12:44 | OP.CCLET_ITS ---
09/27/2024 Zachary Toney [address] [place] [address] Re : Colonoscopy procedure for Stefanie Wayne Dear Dr. Toney This procedure was performed on Friday, September 27, 2024. My impressions and recommendations are as follows: Impressions : - Diverticulosis in the recto-sigmoid colon and in the sigmoid colon. There was some swelling seen from recent diverticulitis. - The examination was otherwise normal on direct and retroflexion views. - No specimens collected. Recommendations : - Discharge patient to home. - Resume previous diet. - Continue present medications. - Repeat colonoscopy in 5 years for surveillance. My findings are described in the full procedure note, which is enclosed. If I can be of further assistance, please feel free to contact me at . Sincerely, Felton Friend, 09/27/2024 12:44:01 PM This report has been signed electronically.
--- NOTE | 2024-09-27 12:44 | PCM.POST.ANE ---
Anesthesia: Postop Eval I Current Vital Signs Temperature: 97 F Pulse Rate: 68 Blood Pressure: 104/60 Respiratory Rate: 16 Pulse Ox: 96 Oxygen Delivery Method: Nasal Cannula Oxygen Flow Rate (L/min): 2 Assessment Airway patent: Yes Spontaneous unlabored respirations: Yes Mental status: Awake and Calm nausea: No Vomiting: No Anesthesia Complication: No Fluid Hydration Crystalloid volume administer (ml): 40 Total IV fluid infused: 40 Progress Note Anesthesia document: Postop Eval 1 completed: Yes
--- NOTE | 2024-09-27 13:18 | PCM.POSTANE2 ---
Anesthesia Postop Eval I Sum Postop Eval Completion status Anesthesia document: Postop Eval 1 completed: Yes Anesthesia Postop Eval I Summary Anesthesia Postop Eval I Summary: Anesthesia Postop Eval I: Assessment Summary Airway patent Yes 09/27/24 12:45 [email or web address] Spontaneous unlabored Yes 09/27/24 12:45 [email or web address] respirations Mental status Awake,Calm 09/27/24 12:45 [email or web address] nausea No 09/27/24 12:45 [email or web address] Vomiting No 09/27/24 12:45 [email or web address] Anesthesia Postop Eval I: Fluid Summary Crystalloid volume administer 40 09/27/24 12:45 [email or web address] (ml) Colloids volume administered ( ml) Blood Product volume administered (ml) Total IV fluid infused 40 09/27/24 12:45 [email or web address] Anesthesia Postop Eval I: Summary Notes Anesthesia Complication No 09/27/24 12:45 [email or web address] Anesthesia Complication Comment: Post-operative progress note Anesthesia: Postop Eval II Evaluation Mental status: Awake Pain Level: 0 nausea: No Vomiting: No Complications Anesthesia Complication: No
== END 2024-09-27 13:17 | disposition home or self-care (01) ==
LOC: EN 10:35 → AC 10:36
PROVIDERS: PCP Internal Medicine; Referring Provider Internal Medicine; Visit Provider Internal Medicine Gastroenterology
PROC: 0DJD8ZZ Inspection of Lower Intestinal Tract, Via Natural or Artificial Opening Endoscopic (ICD-10-PCS; CPT 45378; principal; 2024-09-27 11:40)
DX: K59.04 Chronic idiopathic constipation (principal); E11.43 Type 2 diabetes mellitus with diabetic autonomic (poly)neuropathy; Z79.4 Long term (current) use of insulin; K59.1 Functional diarrhea; K57.30 Diverticulosis of large intestine without perforation or abscess without bleeding; I10 Essential (primary) hypertension; K21.9 Gastro-esophageal reflux disease without esophagitis; K31.84 Gastroparesis; F32.A Depression, unspecified; F41.9 Anxiety disorder, unspecified; K76.0 Fatty (change of) liver, not elsewhere classified; E78.00 Pure hypercholesterolemia, unspecified; G47.30 Sleep apnea, unspecified; G25.81 Restless legs syndrome; Z88.2 Allergy status to sulfonamides; Z79.899 Other long term (current) drug therapy; Z96.41 Presence of insulin pump (external) (internal); Z87.891 Personal history of nicotine dependence; Z87.19 Personal history of other diseases of the digestive system; Z91.199 Patient's noncompliance with other medical treatment and regimen due to unspecified reason
CPT/HCPCS: 45378; 82962; A4216; J2405

== ENCOUNTER 2024-09-29 11:53 | Emergency (ER) | payer MEDICARE, MEDICAID, SELFPAY ==
[2024-09-29 11:54] VITALS: BP 132/95; PULSE 74; RESP 16; TEMP 36.6; O2SAT 96; BMI 28.8
--- NOTE | 2024-09-29 12:08 | RAD_ITS ---
PROCEDURE: SHOULDER MIN 2 VIEWS REASON FOR EXAM: Pain. Limited range of motion. TECHNIQUE: Four view left shoulder series COMPARISON: None. RAD/Shoulder min 2 Views IMPRESSION: [id number] degenerative changes of the visualized spine. Partially visua lized prior cervical surgery. At least moderate left acromioclavicular joint degenerative changes are seen, w ith associated marked superior osteophytosis, particularly. The presence of at least moderate degenerative changes about the left humeral head greater tuberosity suggest the presence of significant chronic rotator cuff disease. [id number] left glenohumeral joint degenerative changes are seen, without definite joint narrowing. Loose intra-articular bodies project over the anterior left humeral head, likel y within the biceps tendon groove. No acute fracture or dislocation is seen. Reading Location: [id number]
[2024-09-29 12:35] VITALS: BP 118/56; PULSE 71; RESP 18; O2SAT 93
[2024-09-29] MEDS: Ketorolac 15 MG/ML Vial IM (13:52)
--- NOTE | 2024-09-29 14:00 | EX.ED.UPPERE ---
HPI History of Present Illness Chief Complaint: Upper Extremity Injury Informant: patient Narrative Narrative: Patient is a 64-year-old female with history of bilateral rotator cuff surgery, type 2 diabetes mellitus, gastroparesis, hypertension and CKD 3 (most recent GFR 52 on 05/29/2024) presenting with atraumatic left shoulder pain. Patient is left-hand dominant. She notes she did have endoscopy with Dr. Brown 2 days ago. She notes she was on her left side with this. For the past 2 days she has had worsening left shoulder pain. Worse with movement of the shoulder. She states it is stabbing in her shoulder and her humerus/mid arm feels like it is throbbing. She is not take anything for pain. She states Tylenol does only work with her. She previously was on meloxicam but taken off of it because of concern of anemia. Patient denies any other complaints or concerns reported at this time. [place] any injuries or falls. No numbness or tingling reported. Denies any chest pain or difficulty breathing. [facility] Medical History Insulin dependent diabetes mellitus Ambulates with cane History of renal disease GERD (gastroesophageal reflux disease) Obesity Presence of pessary Presence of insulin pump Gastroparesis Diabetes Wears glasses Wears dentures Depression Anxiety Marijuana use Thyroid disease Arthritis Fatty liver High cholesterol Restless legs Injury of head and neck Dietary restriction History of hiatal hernia Former smoker Leg cramps History of edema History of stress test Cardiology follow-up encounter Diarrhea Nausea & vomiting Abdominal pain Diarrhea Nausea Acute right flank pain Acute hypokalemia Hyperlipidemia HTN (hypertension) Home Medications ?Medication ?Instructions ?Recorded ?Last Taken ?Type lisinopril 20 1 tab PO DAILY bp 09/22/19 09/26/24 History mg-hydrochlorothiazide 12.5 mg tablet sertraline 100 mg tablet 100 mg PO DAILY depression 09/22/19 09/26/24 History pen needle, diabetic 32 gauge x #150 ea 08/01/21 Unknown Rx (BD Ultra-Fine Sheri Pen Needle) omeprazole 40 mg capsule,delayed 40 mg PO BID gerd 12/09/21 09/27/24 History release trazodone 100 mg tablet 100 mg PO QHS insomnia 12/09/21 09/26/24 History gabapentin 300 mg capsule 300 mg PO BID pain 12/17/22 09/27/24 History blood sugar diagnostic (OneTouch #100 ea 03/11/23 Unknown Rx Ultra Test strips) gabapentin 300 mg capsule 900 mg PO QHS 11/02/23 09/26/24 History atorvastatin 40 mg tablet 40 mg PO QHS 05/03/24 09/26/24 History blood-glucose sensor (Dexcom G7 #9 ea 05/03/24 Unknown Rx Sensor device) empagliflozin 25 mg tablet 25 mg PO QAM #30 tabs 05/03/24 09/24/24 Rx (Jardiance) mirabegron 50 mg tablet,extended 50 mg PO QDAY 05/03/24 09/27/24 History release 24 hr (Myrbetriq) blood sugar diagnostic (Accu-Chek #100 ea 05/24/24 Unknown Rx Guide test strips) estradiol 0.01% (0.1 mg/gram) 1 appful vaginal QWEEK 05/29/24 09/18/24 History vaginal cream pen needle, diabetic 32 gauge x #50 ea 06/27/24 Unknown Rx (BD Ultra-Fine Sheri Pen Needle) insulin lispro 100 unit/mL 1 unit subcut CONT hyperglycemia 09/25/24 09/27/24 History subcutaneous cartridge cholecalciferol (vitamin D3) 100 2,000 unit PO BID 09/27/24 Unknown History mcg (4,000 unit) capsule naproxen 375 mg tablet 375 mg PO BID PRN pain #20 tabs 09/29/24 Unknown Rx Allergy/AdvReac Type Severity Reaction Status Date / Time simvastatin (From Zocor) Allergy Swelling Verified 09/29/24 11:53 Sulfa (Sulfonamide Allergy Swelling Verified 09/29/24 11:53 Antibiotics) Family History Mother Hypertension Lupus Glaucoma Arthritis Neuropathy Brother Diabetes Hypertension Hyperlipemia Surgical History History of esophagogastroduodenoscopy (EGD) Hx of colonoscopy History of esophagogastroduodenoscopy (EGD) History of hysterectomy H/O foot surgery History of hip surgery History of rotator cuff surgery History of left knee surgery h/o left hand surgery Social History household members: other details: daughter housing: house Smoking Status: Former smoker Tobacco: How many years used: 35 alcohol intake: never what type of physical activity do you participate in: none do you feel safe at home: Yes ROS ROS ED Constitutional Constitutional ED: Denies chills or fever(s) Cardiovascular Cardiovascular: Denies chest pain Respiratory/Chest Respiratory/Chest: Denies cough or dyspnea Gastrointestinal Gastrointestinal: Denies nausea or vomiting Musculoskeletal Musculoskeletal: Reports other Details: Left shoulder pain Integumentary Denies Abrasions or rash Neurologic Neurologic: Denies paresthesias or weakness Hematologic/Lymphatic Hematologic/Lymphatic: Denies easy bleeding or easy bruising EXAM Physical Exam Const Vital Signs: 09/29/24 11:54 09/29/24 12:35 Temperature 97.9 F Temperature Source Oral Pulse Rate 74 71 Respiratory Rate 16 18 Blood Pressure 132/95 H 118/56 L Blood Pressure Mean 107 76 Pulse Ox 96 93 Oxygen Delivery Method Room Air Room Air Positive well nourished and well developed General Appearance ED: well developed and NAD HEENT Reports moist mucous membranes Neck full ROM and supple Chest Wall inspection of chest normal and palpation of chest normal Resp normal respiratory effort and clear to auscultation bilaterally Cardio regular rate and regular rhythm Cardio Narrative: 2+ radial pulses Extremity normal to inspection Extremity Narrative: No obvious deformity. Tenderness over the AC joint and the left anterior shoulder. Increased pain with active range of motion of the shoulder especially with flexion and abduction. Pain is milder with passive range of motion. No tenderness to the proximal humerus, elbow or distal arm. Range of motion of the fingers. Neuro oriented x3 Sensorium / Orientation: alert Motor Exam: muscle tone normal throughout Psych mental status grossly normal Skin Rashes: no rashes MDM MDM MDM Narrative Medical decision making narrative: Patient is evaluated for atraumatic left shoulder pain. She did have a colonoscopy and was on her left side which possibly exacerbated her shoulder. X-ray obtained reviewed by myself as well as radiology does show degenerative changes to the shoulder consistent with chronic rotator cuff disease, mild to moderate left glenohumeral joint degenerative changes, loose intra-articular bodies projected over the anterior left humeral head likely within the bicep tendon groove and AC joint degeneration. Pain is highly reproducible with palpation and active range of motion and I do not think this is any type of referred cardiac or pulmonary pain. Is given a dose of IM Toradol in the emergency room. Is given a short course of naproxen. Outpatient labs reviewed which shows patient's creatinine of 1.12 with a creatinine of 63 on 05/29/2024. Even she has a history of CKD and diabetes I think she could tolerate a short dose of NSAIDs. In addition given her diabetes I do not want to give her steroids at this time. Patient is given referral [facility] for further evaluation of her shoulder (has seen them in the past for her rotator cuff surgeries) and also given a sling. Did discuss range of motion activities of the shoulder to prevent frozen shoulder if she is wearing the screen. Given return precautions. Discharged home in stable condition. Patient verbalized agreement understand this plan. Radiography Diagnostic Testing: Clinical Impression(s) from Imaging Studies Shoulder X-Ray 09/29/24 12:08 IMPRESSION: [id number] degenerative changes of the visualized spine. Partially visualized prior cervical surgery. At least moderate left acromioclavicular joint degenerative changes are seen, with associated marked superior osteophytosis, particularly. The presence of at least moderate degenerative changes about the left humeral head greater tuberosity suggest the presence of significant chronic rotator cuff disease. [id number] left glenohumeral joint degenerative changes are seen, without definite joint narrowing. Loose intra-articular bodies project over the anterior left humeral head, likely within the biceps tendon groove. No acute fracture or dislocation is seen. Reading Location: [address] Discharge Plan Triage Chief Complaint: Upper Extremity Injury ED Provider: Johanna Cramer Dx/Rx/DC Orders Clinical Impression: Left shoulder pain, OA (osteoarthritis) of shoulder Instructions: ED Osteoarthritis, ED Shoulder Pain, Uncertain Cause Prescriptions: New naproxen 375 mg tablet 375 mg PO BID PRN (Reason: pain) Qty: 20 0RF No Action gabapentin 300 mg capsule 300 mg PO BID atorvastatin 40 mg tablet 40 mg PO QHS mirabegron [Myrbetriq] 50 mg tablet extended release 24 hr 50 mg PO QDAY (DME) Dexcom G7 Sensor Device See Rx Instructions .Route Qty: 9 1RF Rx Instructions: 1 sensor q 10 days Jardiance 25 mg tablet 25 mg PO QAM Qty: 30 5RF lisinopril-hydrochlorothiazide 1 EACH tablet 1 tab PO DAILY Patient Comments: TAKE 1 TABLET BY MOUTH EVERY DAY sertraline 100 MG tablet 100 mg PO DAILY Patient Comments: TAKE 1 TABLET BY MOUTH EVERY DAY omeprazole 40 mg capsule,delayed release(DR/EC) 40 mg PO BID Patient Comments: TAKE 1 CAPSULE BY MOUTH EVERY DAY trazodone 100 MG tablet 100 mg PO QHS Rx Instructions: Hold trazodone for 1 week while patient is on Cipro to avoid QTC prolongation gabapentin 300 mg capsule 900 mg PO QHS estradiol 0.01 % (0.1 mg/gram) cream 1 appful vaginal QWEEK insulin lispro 100 unit/mL cartridge 1 unit subcut CONT Rx Instructions: INSULIN PUMP cholecalciferol (vitamin D3) 100 mcg (4,000 unit) capsule 2,000 unit PO BID Patient Comments: unknown dose (DME) pen needle, diabetic [BD Ultra-Fine Sheri Pen Needle] 32 gauge x 5/32 needle See Rx Instructions .ROUTE .MEDSUPPLY Qty: 150 2RF Rx Instructions: 4 time daily (DME) OneTouch Ultra Test Strip See Rx Instructions .Route Qty: 100 5RF Rx Instructions: 4x/day (DME) Accu-Chek Guide test strips Strip See Rx Instructions .Route Qty: 100 3RF Rx Instructions: QID (DME) pen needle, diabetic [BD Ultra-Fine Sheri Pen Needle] 32 gauge x 5/32 needle See Rx Instructions .ROUTE .MEDSUPPLY Qty: 50 0RF Rx Instructions: As directed Primary Care Provider: Zachary Toney Referrals: Armand Alcaraz MD [Med Staff - Active Staff] - Zachary Toney MD [Primary Care Provider] - Activity Restrictions/Additional Instructions: Even prescribed a short course of NSAIDs to help with pain. You may apply a topical Voltaren gel or something along the lines of IcyHot as well. These are available [id number]. Please follow-up with orthopedics as your x-ray does show significant arthritic and degenerative changes of the shoulder. Make sure if you are wearing your sling for comfort that you take your arm out of your sling a couple times a day and do range of motion exercises including small circles a little circles in clockwise and counterclockwise direction to help prevent frozen shoulder. Print Language: Spanish Disposition Disposition: Home, Self Care Discharge Date/Time: 09/29/24 14:17
== END 2024-09-29 14:17 | disposition home or self-care (01) ==
PROVIDERS: Emergency Provider Emergency Medicine; PCP Internal Medicine; Visit Provider Emergency Medicine
DX: M19.012 Primary osteoarthritis, left shoulder (principal); Z79.4 Long term (current) use of insulin; E11.43 Type 2 diabetes mellitus with diabetic autonomic (poly)neuropathy; E11.22 Type 2 diabetes mellitus with diabetic chronic kidney disease; N18.30 Chronic kidney disease, stage 3 unspecified; K31.84 Gastroparesis; I12.9 Hypertensive chronic kidney disease with stage 1 through stage 4 chronic kidney disease, or unspecified chronic kidney disease; E78.00 Pure hypercholesterolemia, unspecified; F41.9 Anxiety disorder, unspecified; F32.A Depression, unspecified; K21.9 Gastro-esophageal reflux disease without esophagitis; G25.81 Restless legs syndrome; Z96.41 Presence of insulin pump (external) (internal); Z88.2 Allergy status to sulfonamides; Z79.84 Long term (current) use of oral hypoglycemic drugs; Z79.899 Other long term (current) drug therapy; Z87.891 Personal history of nicotine dependence
CPT/HCPCS: 73030; 96372; 99283

== ENCOUNTER 2025-04-05 15:15 | Emergency (ER) | payer MEDICARE, MEDICAID, SELFPAY ==
[2025-04-05 15:16] VITALS: BP 119/95; PULSE 85; RESP 16; TEMP 36.1; O2SAT 97; BMI 28.5
[2025-04-05 16:21] LABS: Hematocrit 38.2 % (37-47); Hemoglobin 12.5 g/dL (12.0-15.0); Immature Granulocytes Count 0.030 X10^3/uL (0.0-0.0); Mean Corp Hgb Conc 32.7 g/dL (32-36); Mean Corpuscular Volume 80.6 fL (81-99); Mean Platelet Vol. 9.9 fl (6.2-12.0); NRBC Flagged by Analyzer 0 % (0-5); Platelet Count 344 K/mm3 (150-450); RBC Distribution Width CV 14.6 % (11.6-14.6); RBC Distribution Width SD 42.6 fl (35.1-43.9); Red Blood Count 4.74 M/mm3 (4.2-5.4); White Blood Count 10.8 K/mm3 (4.4-11.0)
[2025-04-05 17:04] LABS: AST(SGOT) 22 U/L (<=31); Alanine Aminotransfer ALT/SGPT 21 U/L (<=34); Albumin, Serum 4.3 g/dL (3.4-4.8); Alkaline Phosphatase 83 U/L (35-104); Anion Gap 15 (5-15); BUN 20 mg/dL (4-19); BUN/Creat Ratio 20.1 RATIO (10-20); Calcium,Total 9.7 mg/dL (7.6-11.0); Carbon Dioxide 23.9 mmol/L (21.0-32.0); Chloride 97 mmol/L (98-108); Estimated Creatinine Clearance 57.06 ml/min (50-250); Globulin 3.1 g/dL (2.2-4.2); Glucose 125 mg/dL (70-99); Lipase 16 U/L (13-75); Potassium 3.4 mmol/L (3.3-5.1)
--- NOTE | 2025-04-05 17:11 | CT_ITS ---
PROCEDURE: ABDOMEN/PELVIS WITHOUT CONT 04/05/2025 REASON FOR EXAM: LEFT FLANK PAIN TECHNIQUE: ABDOMEN/PELVIS WITHOUT CONT Noncontrast technique limits evaluation of the abdominal and pelvic viscera. Coronal and Sagittal reconstruction series were provided. One or more dose reduction techniques were used (e.g., Automated exposure control, adjustment of the mA and/or kV according to patient size, use of iterative reconstruction technique). RADIATION DOSE SUMMARY: CTDlvol: 9 mGy DLP: 451 mGycm COMPARISON: 01/30/2023. FINDINGS: The peripheral soft tissues are unremarkable. The lung bases are clear. Degenerative changes of the spine. The liver is unremarkable. The gallbladder is unremarkable. The pancreas, spleen is unremarkable. Left adrenal 17 mm adenoma. The kidneys are unremarkable. No nephrolithiasis. No hydroureteronephrosis. Pessary device is present. Prior hysterectomy. Normal caliber large and small bowel. The appendix is not discretely visualized. No inflammatory changes. No suspicious lymphadenopathy. CT/Abdomen/Pelvis without Cont IMPRESSION: No acute abnormalities of the abdomen or pelvis. No nephrolithiasis or obstructive uropathy. Reading Location: [id number]
[2025-04-05 17:20] LABS: Mucous, Urine 0 SEEN /hpf (<or=2+); Red Blood Cells-Urine 0 SEEN /hpf (0-5)
[2025-04-05 17:25] LABS: Color, Urine Yellow (Yellow); Glucose, Dipstick 1000 mg/dl (Normal); Ketone-Dipstick Negative (Negative); Leukocyte Esterase-Dipstick 25 /ul (Negative); Nitrite-Dipstick Positive (Negative); Occult Blood-Urine 10 /ul (Negative); Protein-Dipstick 15 mg/dl (Negative); Specific Gravity, Urine 1.015 (1.002-1.030); Urine Bilirubin Dipstick Negative (Negative)
[2025-04-05 17:36] LABS: Squamous Epithelial Cells - UA 0-5 SEEN /hpf (5-10)
[2025-04-05 17:52] VITALS: PULSE 78; RESP 16; O2SAT 97
[2025-04-05 19:00] VITALS: PULSE 79; RESP 18; O2SAT 95
--- NOTE | 2025-04-05 19:16 | EDS_ITS ---
HPI <ETHAN Hernandez - Last Filed: 04/05/25 19:59> History of Present Illness Chief Complaint: Flank Pain Narrative Narrative: 64-year-old female with past medical history of HTN, HLD, DM 1, CKD presents with few days of urinary frequency with burning and left flank pain. She denies fever, chills, nausea or vomiting. No history of kidney stones or pyelonephritis. PFSH <ETHAN Hernandez - Last Filed: 04/05/25 19:59> [facility] Medical History (Updated 04/05/25 @ 19:40 by ETHAN Hernandez) Insulin dependent diabetes mellitus Ambulates with cane History of renal disease GERD (gastroesophageal reflux disease) Obesity Presence of pessary Presence of insulin pump Gastroparesis Diabetes Wears glasses Wears dentures Depression Anxiety Marijuana use Thyroid disease Arthritis Fatty liver High cholesterol Restless legs Injury of head and neck Dietary restriction History of hiatal hernia Former smoker Leg cramps History of edema History of stress test Cardiology follow-up encounter Diarrhea Nausea & vomiting Abdominal pain Diarrhea Nausea Acute right flank pain Acute hypokalemia Hyperlipidemia HTN (hypertension) Home Medications ?Medication ?Instructions ?Recorded ?Last Taken ?Type lisinopril 20 1 tab PO DAILY bp 09/22/19 0 09/26/24 History mg-hydrochlorothiazide 12.5 mg tablet sertraline 100 mg tablet 100 mg PO DAILY depression 0 09/22/19 09/26/24 History pen needle, diabetic 32 gauge x #150 ea 08/01/21 Unkno wn Rx (BD Ultra-Fine Sheri Pen Needle) omeprazole 40 mg capsule,delayed 40 mg PO BID gerd 08/2009/27/24 History release trazodone 100 mg tablet 100 mg PO QHS insomnia 12/0909/26/24 History gabapentin 300 mg capsule 300 mg PO BID pain 12/17/22 09/27/24 History blood sugar diagnostic (OneTouch #100 ea 03/11/23 Unkn own Rx Ultra Test strips) gabapentin 300 mg capsule 900 mg PO QHS 11/02/2309/26 History atorvastatin 40 mg tablet 40 mg PO QHS 05/03/24 History mirabegron 50 mg tablet,extended 50 mg PO QDAY 4 09/27/24 History release 24 hr (Myrbetriq) blood sugar diagnostic (Accu-Chek #100 ea 05/24/24 Unk nown Rx Guide test strips) estradiol 0.01% (0.1 mg/gram) 1 appful vaginal QWEEK 0 05/29/24 09/18/24 History vaginal cream cholecalciferol (vitamin D3) 100 2,000 unit PO BID Unknown History mcg (4,000 unit) capsule naproxen 375 mg tablet 375 mg PO BID PRN pain #20 t abs 09/29/24 Unknown Rx empagliflozin 25 mg tablet 25 mg PO QAM #30 tabs 11/15 Unknown Rx (Jardiance) pen needle, diabetic 32 gauge x #100 ea 11/29/24 Unkno wn Rx (BD Ultra-Fine Sheri Pen Needle) insulin lispro 100 unit/mL 100 unit continuous subcuta neous 12/06/24 Unknown Rx subcutaneous solution infusion .continuous #90 mL blood-glucose sensor (Dexcom G7 #9 ea 12/20/24 Unknown Rx Sensor device) lubiprostone 8 mcg capsule 8 mcg PO BID #60 caps 01/15 Unknown Rx (Amitiza) hyoscyamine sulfate 0.125 mg tablet 0.125 mg PO BID-QI D PRN dyspepsia 02/08/25 Unknown Rx #60 tabs cephalexin 500 mg capsule 500 mg PO Q12 #14 CAPSULES 0 04/05/25 Unknown Rx Allergy/AdvReac Type Severity Reaction Status Date / Time simvastatin (From Zocor) Allergy Swelling Verified 04/05/25 15:18 Sulfa (Sulfonamide Allergy Swelling Verified 04/05/25 15:18 Antibiotics) Family History (Updated 03/27/25 @ 11:59 by Loreta Pino) Mother Hypertension Lupus Glaucoma Arthritis Neuropathy Brother Diabetes Hypertension Hyperlipemia Other Heart disease Osteoporosis Surgical History History of esophagogastroduodenoscopy (EGD) Hx of colonoscopy History of esophagogastroduodenoscopy (EGD) History of hysterectomy H/O foot surgery History of hip surgery History of rotator cuff surgery History of left knee surgery h/o left hand surgery Social History household members: other details: daughter housing: house Smoking Status: Former smoker Tobacco: How many years used: 35 alcohol intake: never what type of physical activity do you participate in: none do you feel safe at home: Yes ROS <ETHAN Hernandez - Last Filed: 04/05/25 19:59> ROS ED ROS Narrative Constitutional: Negative for fever, chills, malaise. CVS: Negative for chest pain. Respiratory: Negative for shortness of breath. GI: Negative for abdominal pain, nausea, vomiting, diarrhea, melena, hematochezia. : Positive for dysuria. EXAM <ETHAN Hernandez - Last Filed: 04/05/25 19:59> Physical Exam Narrative Exam Narrative: CONST: Patient sitting in no acute distress. EYES: Normal inspection. NECK: Normal inspection. RESP: No respiratory distress, CTAB. CVS: Regular rate and rhythm, no murmur, no gallop. ABD: Soft and nontender, no guarding or rebound, nondistended. Back: Normal inspection, mildly CVA tenderness. SKIN: Color normal, no rash, warm, dry, intact. EXTREMITIES: Normal appearance, no pedal edema. NEURO: Alert and answering questions appropriately. PSYCH: Normal affect. Const Vital Signs: 04/05/25 15:16 04/05/25 17:52 04/05/25 19:00 Temperature 96.9 F L Temperature Source Oral Pulse Rate 85 78 79 Respiratory Rate 16 16 18 Blood Pressure 119/95 H Blood Pressure Mean 103 Pulse Ox 97 97 95
--- NOTE | 2025-04-05 19:16 | EX.ED.DYSGE1 ---
HPI <ETHAN Hernandez - Last Filed: 04/05/25 19:59> History of Present Illness Chief Complaint: Flank Pain Narrative Narrative: 64-year-old female with past medical history of HTN, HLD, DM 1, CKD presents with few days of urinary frequency with burning and left flank pain. She denies fever, chills, nausea or vomiting. No history of kidney stones or pyelonephritis. PFSH <ETHAN Hernandez - Last Filed: 04/05/25 19:59> [facility] Medical History (Updated 04/05/25 @ 19:40 by ETHAN Hernandez) Insulin dependent diabetes mellitus Ambulates with cane History of renal disease GERD (gastroesophageal reflux disease) Obesity Presence of pessary Presence of insulin pump Gastroparesis Diabetes Wears glasses Wears dentures Depression Anxiety Marijuana use Thyroid disease Arthritis Fatty liver High cholesterol Restless legs Injury of head and neck Dietary restriction History of hiatal hernia Former smoker Leg cramps History of edema History of stress test Cardiology follow-up encounter Diarrhea Nausea & vomiting Abdominal pain Diarrhea Nausea Acute right flank pain Acute hypokalemia Hyperlipidemia HTN (hypertension) Home Medications ?Medication ?Instructions ?Recorded ?Last Taken ?Type lisinopril 20 1 tab PO DAILY bp 09/22/19 09/26/24 History mg-hydrochlorothiazide 12.5 mg tablet sertraline 100 mg tablet 100 mg PO DAILY depression 09/22/19 09/26/24 History pen needle, diabetic 32 gauge x #150 ea 08/01/21 Unknown Rx (BD Ultra-Fine Sheri Pen Needle) omeprazole 40 mg capsule,delayed 40 mg PO BID gerd 12/09/21 09/27/24 History release trazodone 100 mg tablet 100 mg PO QHS insomnia 12/09/21 09/26/24 History gabapentin 300 mg capsule 300 mg PO BID pain 12/17/22 09/27/24 History blood sugar diagnostic (OneTouch #100 ea 03/11/23 Unknown Rx Ultra Test strips) gabapentin 300 mg capsule 900 mg PO QHS 11/02/23 09/26/24 History atorvastatin 40 mg tablet 40 mg PO QHS 05/03/24 09/26/24 History mirabegron 50 mg tablet,extended 50 mg PO QDAY 05/03/24 09/27/24 History release 24 hr (Myrbetriq) blood sugar diagnostic (Accu-Chek #100 ea 05/24/24 Unknown Rx Guide test strips) estradiol 0.01% (0.1 mg/gram) 1 appful vaginal QWEEK 05/29/24 09/18/24 History vaginal cream cholecalciferol (vitamin D3) 100 2,000 unit PO BID 09/27/24 Unknown History mcg (4,000 unit) capsule naproxen 375 mg tablet 375 mg PO BID PRN pain #20 tabs 09/29/24 Unknown Rx empagliflozin 25 mg tablet 25 mg PO QAM #30 tabs 11/15/24 Unknown Rx (Jardiance) pen needle, diabetic 32 gauge x #100 ea 11/29/24 Unknown Rx /32 (BD Ultra-Fine Sheri Pen Needle) insulin lispro 100 unit/mL 100 unit continuous subcutaneous 12/06/24 Unknown Rx subcutaneous solution infusion .continuous #90 mL blood-glucose sensor (Dexcom G7 #9 ea 12/20/24 Unknown Rx Sensor device) lubiprostone 8 mcg capsule 8 mcg PO BID #60 caps 01/15/25 Unknown Rx (Amitiza) hyoscyamine sulfate 0.125 mg tablet 0.125 mg PO BID-QID PRN dyspepsia 02/08/25 Unknown Rx #60 tabs cephalexin 500 mg capsule 500 mg PO Q12 #14 CAPSULES 04/05/25 Unknown Rx Allergy/AdvReac Type Severity Reaction Status Date / Time simvastatin (From Zocor) Allergy Swelling Verified 04/05/25 15:18 Sulfa (Sulfonamide Allergy Swelling Verified 04/05/25 15:18 Antibiotics) Family History (Updated 03/27/25 @ 11:59 by Loreta Pino) Mother Hypertension Lupus Glaucoma Arthritis Neuropathy Brother Diabetes Hypertension Hyperlipemia Other Heart disease Osteoporosis Surgical History History of esophagogastroduodenoscopy (EGD) Hx of colonoscopy History of esophagogastroduodenoscopy (EGD) History of hysterectomy H/O foot surgery History of hip surgery History of rotator cuff surgery History of left knee surgery h/o left hand surgery Social History household members: other details: daughter housing: house Smoking Status: Former smoker Tobacco: How many years used: 35 alcohol intake: never what type of physical activity do you participate in: none do you feel safe at home: Yes ROS <ETHAN Hernandez - Last Filed: 04/05/25 19:59> ROS ED ROS Narrative Constitutional: Negative for fever, chills, malaise. CVS: Negative for chest pain. Respiratory: Negative for shortness of breath. GI: Negative for abdominal pain, nausea, vomiting, diarrhea, melena, hematochezia. : Positive for dysuria. EXAM <ETHAN Hernandez - Last Filed: 04/05/25 19:59> Physical Exam Narrative Exam Narrative: CONST: Patient sitting in no acute distress. EYES: Normal inspection. NECK: Normal inspection. RESP: No respiratory distress, CTAB. CVS: Regular rate and rhythm, no murmur, no gallop. ABD: Soft and nontender, no guarding or rebound, nondistended. Back: Normal inspection, mildly CVA tenderness. SKIN: Color normal, no rash, warm, dry, intact. EXTREMITIES: Normal appearance, no pedal edema. NEURO: Alert and answering questions appropriately. PSYCH: Normal affect. Const Vital Signs: 04/05/25 15:16 04/05/25 17:52 04/05/25 19:00 Temperature 96.9 F L Temperature Source Oral Pulse Rate 85 78 79 Respiratory Rate 16 16 18 Blood Pressure 119/95 H Blood Pressure Mean 103 Pulse Ox 97 97 95 Oxygen Delivery Method Room Air Room Air 04/05/25 19:51 Temperature Temperature Source Pulse Rate 81 Respiratory Rate 16 Blood Pressure Blood Pressure Mean Pulse Ox 98 Oxygen Delivery Method <Dr. James Brandon MD - Last Filed: 04/05/25 19:20> Physical Exam Const Vital Signs: 04/05/25 15:16 04/05/25 17:52 04/05/25 19:00 Temperature 96.9 F L Temperature Source Oral Pulse Rate 85 78 79 Respiratory Rate 16 16 18 Blood Pressure 119/95 H Blood Pressure Mean 103 Pulse Ox 97 97 95 Oxygen Delivery Method Room Air Room Air 04/05/25 19:51 Temperature Temperature Source Pulse Rate 81 Respiratory Rate 16 Blood Pressure Blood Pressure Mean Pulse Ox 98 Oxygen Delivery Method MDM <ETHAN Hernandez - Last Filed: 04/05/25 19:59> MDM MDM Narrative Medical decision making narrative: Differential includes but not limited to UTI, kidney stone, pyelonephritis 64-year-old female has had a few days follow-up visit. Urinary frequency and burning and left flank pain. No fever or chills. No history of kidney stones. She appears well and nontoxic with stable vital signs. Normal cardiopulmonary exam. No abdominal tenderness. Mild left CVA tenderness on exam. Labs show normal white count of 10.8 and normal renal function with creatinine of 0.98. UA is consistent with UTI and was sent for culture. CT of the abdomen/pelvis shows no acute process. Her symptoms improved after morphine and Zofran and she was given Rocephin for the UTI. She is appropriate for outpatient management with Keflex and will alternate [id number] pain medications. She was discharged in stable condition. I have personally performed a face to face assessment of the patient and have reviewed the TOMASZ Note. I performed a substantive portion of the visit including all aspects of the following. My velez findings include: History is 64-year-old female complain left flank pain last several days with urinary frequency and dysuria. Denies any fever. No vomiting. No history of kidney stones Exam is [well-appearing 64-year-old female. Vital signs stable afebrile. Does not look septic toxic no distress. H EENT exam pupils round react to light. Moist mucous membranes. Neck nontender no JVD. No lymphadenopathy. Lungs clear to auscultation bilateral. Heart regular rhythm no murmur. Chest wall ribs nontender. Abdomen soft nontender normal bowel sounds no peritoneal signs. Back mild left CVA tenderness. No ecchymosis or bruising. No redness or warmth. Moving all 4 extremities. Normal strength and range of motion. Normal meeting planner strength. Normal dorsi plantarflexion. Nontender no edema. Neurologically she is awake alert. Answer questions following commands.] Medical Decision Making [64-year-old female concern for possible UTI early pyelonephritis. Screening labs, CT flank to rule out kidney stone and UA being obtained.] Other additions or changes: [UA appear to be infected. Culture sent. Started on IV Rocephin. Awaiting CT results. Labs already reviewed.] Lab Data Labs: Laboratory Results - last 24 hr 04/05/25 04/05/25 16:10 17:10 WBC 10.8 RBC 4.74 Hgb 12.5 Hct 38.2 MCV 80.6 L MCH 26.4 L MCHC 32.7 RDW Std Deviation 42.6 RDW Coeff of Celine 14.6 Plt Count 344 MPV 9.9 Immature Gran % (Auto) 0.300 Neut % (Auto) 75.4 H Lymph % (Auto) 13.2 L Lamoure % (Auto) 10.1 H Eos % (Auto) 0.6 Baso % (Auto) 0.4 Absolute Neuts (auto) 8.1 H Absolute Lymphs (auto) 1.42 Nucleated RBC % 0 Sodium 135 Potassium 3.4 Chloride 97 L Carbon Dioxide 23.9 Anion Gap 15 BUN 20 H Creatinine 0.98 Estim Creat Clear Calc 57.06 Est GFR (MDRD) Non-Af 66 BUN/Creatinine Ratio 20.1 H Glucose 125 H Calcium 9.7 Total Bilirubin 0.49 AST 22 ALT 21 Alkaline Phosphatase 83 Total Protein 7.4 Albumin 4.3 Globulin 3.1 Albumin/Globulin Ratio 1.4 Lipase 16 Urine Color Yellow Urine Clarity Sl Cldy Urine pH 6.0 Ur Specific Juliaetta 1.015 Urine Protein 15 H Urine Glucose (UA) 1000 H Urine Ketones Negative Urine Occult Blood 10 H Urine Nitrite Positive H Urine Bilirubin Negative Urine Urobilinogen Normal Ur Leukocyte Esterase 25 H Urine RBC 0 SEEN Urine WBC 0-5 SEEN Ur Squamous Epith Cells 0-5 SEEN Urine Bacteria 2+ Urine Mucus 0 SEEN Radiography Diagnostic Testing: Clinical Impression(s) from Imaging Studies Abdomen/Pelvis CT 04/05/25 17:11 IMPRESSION: No acute abnormalities of the abdomen or pelvis. No nephrolithiasis or obstructive uropathy. Reading Location: [id number] <Dr. James Brandon MD - Last Filed: 04/05/25 19:20> [facility] Narrative Medical decision making narrative: I have personally performed a face to face assessment of the patient and have reviewed the TOMASZ Note. I performed a substantive portion of the visit including all aspects of the following. My velez findings include: History is 64-year-old female complain left flank pain last several days with urinary frequency and dysuria. Denies any fever. No vomiting. No history of kidney stones Exam is [well-appearing 64-year-old female. Vital signs stable afebrile. Does not look septic toxic no distress. H EENT exam pupils round react to light. Moist mucous membranes. Neck nontender no JVD. No lymphadenopathy. Lungs clear to auscultation bilateral. Heart regular rhythm no murmur. Chest wall ribs nontender. Abdomen soft nontender normal bowel sounds no peritoneal signs. Back mild left CVA tenderness. No ecchymosis or bruising. No redness or warmth. Moving all 4 extremities. Normal strength and range of motion. Normal meeting planner strength. Normal dorsi plantarflexion. Nontender no edema. Neurologically she is awake alert. Answer questions following commands.] Medical Decision Making [64-year-old female concern for possible UTI early pyelonephritis. Screening labs, CT flank to rule out kidney stone and UA being obtained.] Other additions or changes: [UA appear to be infected. Culture sent. Started on IV Rocephin. Awaiting CT results. Labs already reviewed.] History & Record Review Discussion w/independent historian: Patient Additional record(s) reviewed:: Prior inpatient record, Prior outpatient record, Prior ED visit and Prior labs Lab Data Attestation: I reviewed the patient's lab results. Lab results narrative: CBC shows a white count of 10.8. H&H 12 and 38. Platelets 344. Electrolytes show a gap of 15. BUN and creatinine of 20 and 0.9. Glucose 125. Liver enzymes and lipase normal. UA shows glucose. Positive nitrates. 0 reds. 0 whites. 2+ bacteria culture will be sent to be treated as a UTI. Labs: Laboratory Results - last 24 hr 04/05/25 04/05/25 16:10 17:10 WBC 10.8 RBC 4.74 Hgb 12.5 Hct 38.2 MCV 80.6 L MCH 26.4 L MCHC 32.7 RDW Std Deviation 42.6 RDW Coeff of Celine 14.6 Plt Count 344 MPV 9.9 Immature Gran % (Auto) 0.300 Neut % (Auto) 75.4 H Lymph % (Auto) 13.2 L Lamoure % (Auto) 10.1 H Eos % (Auto) 0.6 Baso % (Auto) 0.4 Absolute Neuts (auto) 8.1 H Absolute Lymphs (auto) 1.42 Nucleated RBC % 0 Sodium 135 Potassium 3.4 Chloride 97 L Carbon Dioxide 23.9 Anion Gap 15 BUN 20 H Creatinine 0.98 Estim Creat Clear Calc 57.06 Est GFR (MDRD) Non-Af 66 BUN/Creatinine Ratio 20.1 H Glucose 125 H Calcium 9.7 Total Bilirubin 0.49 AST 22 ALT 21 Alkaline Phosphatase 83 Total Protein 7.4 Albumin 4.3 Globulin 3.1 Albumin/Globulin Ratio 1.4 Lipase 16 Urine Color Yellow Urine Clarity Sl Cldy Urine pH 6.0 Ur Specific Julia[place] 1.015 Urine Protein 15 H Urine Glucose (UA) 1000 H Urine Ketones Negative Urine Occult Blood 10 H Urine Nitrite Positive H Urine Bilirubin Negative Urine Urobilinogen Normal Ur Leukocyte Esterase 25 H Urine RBC 0 SEEN Urine WBC 0-5 SEEN Ur Squamous Epith Cells 0-5 SEEN Urine Bacteria 2+ Urine Mucus 0 SEEN Radiography Diagnostic Testing: Clinical Impression(s) from Imaging Studies Abdomen/Pelvis CT 04/05/25 17:11 IMPRESSION: No acute abnormalities of the abdomen or pelvis. No nephrolithiasis or obstructive uropathy. Reading Location: [facility] Discharge Plan Triage Chief Complaint: Flank Pain ED Midlevel Provider: Kelli Campoverde ED Provider: James Brandon Dx/Rx/DC Orders Clinical Impression: UTI (urinary tract infection), Left flank pain Instructions: Urinary Tract Infections in Women Prescriptions: New cephalexin 500 mg capsule 500 mg PO Q12 Qty: 14 0RF No Action gabapentin 300 mg capsule 300 mg PO BID atorvastatin 40 mg tablet 40 mg PO QHS mirabegron [Myrbetriq] 50 mg tablet extended release 24 hr 50 mg PO QDAY lisinopril-hydrochlorothiazide 1 EACH tablet 1 tab PO DAILY Patient Comments: TAKE 1 TABLET BY MOUTH EVERY DAY sertraline 100 MG tablet 100 mg PO DAILY Patient Comments: TAKE 1 TABLET BY MOUTH EVERY DAY omeprazole 40 mg capsule,delayed release(DR/EC) 40 mg PO BID Patient Comments: TAKE 1 CAPSULE BY MOUTH EVERY DAY trazodone 100 MG tablet 100 mg PO QHS Rx Instructions: Hold trazodone for 1 week while patient is on Cipro to avoid QTC prolongation gabapentin 300 mg capsule 900 mg PO QHS estradiol 0.01 % (0.1 mg/gram) cream 1 appful vaginal QWEEK cholecalciferol (vitamin D3) 100 mcg (4,000 unit) capsule 2,000 unit PO BID Patient Comments: unknown dose naproxen 375 mg tablet 375 mg PO BID PRN (Reason: pain) Qty: 20 0RF (DME) pen needle, diabetic [BD Ultra-Fine Sheri Pen Needle] 32 gauge x 5/32 needle See Rx Instructions .ROUTE .MEDSUPPLY Qty: 150 2RF Rx Instructions: 4 time daily (DME) OneTouch Ultra Test Strip See Rx Instructions .Route Qty: 100 5RF Rx Instructions: 4x/day (DME) Accu-Chek Guide test strips Strip See Rx Instructions .Route Qty: 100 3RF Rx Instructions: QID Jardiance 25 mg tablet 25 mg PO QAM Qty: 30 5RF (DME) pen needle, diabetic [BD Ultra-Fine Sheri Pen Needle] 32 gauge x 5/32 needle See Rx Instructions .ROUTE .MEDSUPPLY Qty: 100 5RF Rx Instructions: As directed insulin lispro 100 unit/mL solution 100 unit continuous subcutaneous infusion .continuous Qty: 90 1RF (DME) Dexcom G7 Sensor Device See Rx Instructions .Route Qty: 9 1RF Rx Instructions: 1 sensor q 10 days lubiprostone [Amitiza] 8 mcg capsule 8 mcg PO BID Qty: 60 3RF hyoscyamine sulfate 0.125 mg tablet 0.125 mg PO BID-QID PRN (Reason: dyspepsia) Qty: 60 3RF Primary Care Provider: Zachary Toney Referrals: Zachary Toney MD [Primary Care Provider] - Activity Restrictions/Additional Instructions: You have a urinary tract infection. Your blood work and CT scan look normal with no signs of kidney stone. Alternate Tylenol and Motrin as needed for pain. If symptoms worsen return to the ER. Print Language: Egyptian Disposition Disposition: Home, Self Care Discharge Date/Time: 04/05/25 19:52
[2025-04-05 19:51] VITALS: PULSE 81; RESP 16; O2SAT 98
== END 2025-04-05 19:52 | disposition home or self-care (01) ==
PROVIDERS: Emergency Provider Emergency Medicine; PCP Internal Medicine; Visit Provider Emergency Medicine
DX: N39.0 Urinary tract infection, site not specified (principal); E10.43 Type 1 diabetes mellitus with diabetic autonomic (poly)neuropathy; E10.22 Type 1 diabetes mellitus with diabetic chronic kidney disease; Z87.891 Personal history of nicotine dependence; I12.9 Hypertensive chronic kidney disease with stage 1 through stage 4 chronic kidney disease, or unspecified chronic kidney disease; E78.00 Pure hypercholesterolemia, unspecified; N18.9 Chronic kidney disease, unspecified; R10.9 Unspecified abdominal pain; K21.9 Gastro-esophageal reflux disease without esophagitis; K31.84 Gastroparesis
CPT/HCPCS: 74176; 80053; 81001; 83690; 85025; 87086; 87088; 87186; 96365; 96375; 99283; A4216; J2405

== ENCOUNTER → 2025-06-19 | Outpatient (CLI) | payer MEDICARE, MEDICAID, SELFPAY ==
[2025-06-19 09:04] LABS: AST(SGOT) 14 U/L (<=31); Alanine Aminotransfer ALT/SGPT 8 U/L (<=34); Albumin, Serum 3.9 g/dL (3.4-4.8); Alkaline Phosphatase 83 U/L (35-104); Anion Gap 11 (5-15); BUN 14 mg/dL (4-19); BUN/Creat Ratio 15.1 RATIO (10-20); Calcium,Total 9.3 mg/dL (7.6-11.0); Carbon Dioxide 23.7 mmol/L (21.0-32.0); Chloride 106 mmol/L (98-108); Cholesterol 150 mg/dL (<=200); Globulin 2.7 g/dL (2.2-4.2); Glucose 71 mg/dL (70-99); Low Density Lipoprotein Calc. 59 mg/dL; Potassium 4.1 mmol/L (3.3-5.1); Triglycerides 147 mg/dL; Very Low Density Lipoprotein 29 mg/dL (5-40); Vitamin D,25 Hydroxy 41.1 ng/mL (30-100); cholesterol:hdl ratio screen 2.25
[2025-06-19 10:54] LABS: Creatinine, Urine (random) 136.00 mg/dL (28.00-217.00); Microalbumin,Random Urine < 12.0 mg/L (<20 mg/L)
== END | disposition home or self-care (01) ==
LOC: LAB 08:03
PROVIDERS: PCP Internal Medicine; Referring Provider Nurse Practitioner Family; Visit Provider Nurse Practitioner Family
DX: E10.65 Type 1 diabetes mellitus with hyperglycemia (principal); E55.9 Vitamin D deficiency, unspecified
CPT/HCPCS: 36415; 80053; 80061; 82043; 82306; 82570; 84443

== ENCOUNTER 2025-08-15 05:21 | Day surgery (SDC) | payer MEDICARE, MEDICAID, SELFPAY ==
--- NOTE | 2025-08-02 14:32 | PAT.ANE_ITS ---
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 When Was Last Pacemaker Check QUESTION #4 FULL TEXT: You/Your Family Experience fever (hyperthermia) with Anesthesia Last Oral Intake Last Oral intake: Last Oral Intake NPO since Meds taken in AM with sips of water? 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 - blending tank tender helper: PONV - blending tank tender helper Female Yes 08/01/25 14:11 HX of Motion Sickness No 08/01/25 14:11 HX of N/V After Surgery Yes 08/01/25 14:11 Non-Smoker Yes 08/01/25 14:11 Duration of Surgery greater No 08/01/25 14:11 than 60 minutes Number of Risk Factors 3 08/01/25 14:11 PONV Score Moderate Risk 08/01/25 14:11 Height & Weight Height & Weight: Anesthesia: Height & Weight Height 5 ft 3 in 05/30/25 10:36 Respiratory Assessment Respiratory Assessment - blending tank tender helper: Respiratory Tract Infection Hx - blending tank tender helper Hx Respiratory Tract Infection No 08/01/25 14:11 STOP Sleep Apnea STOP Sleep Apnea - blending tank tender helper: STOP Sleep Apnea - blending tank tender helper Hx Hypertension Yes 08/01/25 14:11 Hx Sleep Apnea Yes 08/01/25 14:11 CPAP No 08/01/25 14:11 BIPAP No 08/01/25 14:11 Do you snore loudly (louder than talking or can be heard Do you often feel tired/ fatigued/ sleepy during daytime? Has anyone observed you stop breathing during sleep? STOP Results Positive 08/01/25 14:11 QUESTION #5 FULL TEXT : Do you snore loudly (louder than talking or can be heard through closed doors)? Tobacco Use History Tobacco Use History - blending tank tender helper: Tobacco Use History - blending tank tender helper Tobacco Use Smoking Status Former smoker 08/01/25 14:11 Hx Tobacco Use No 08/01/25 14:11 Years Smoking Packs Smoked per Day Smoking Cessation Date was No - quit smoking greater 08/01/25 14:11 within the last 15 years than 15 years ago Hx Smoking Cessation Date 08/30/07 08/01/25 14:11 Hx Smoking Cessation No 08/01/25 14:11 Counseling Hematologic Medial History Hematologic Hx - blending tank tender helper: Hematologic Medical Hx - wheat cleaner Hx of Blood Transfusion No 08/01/25 14:11 Hx of Transfusion in last 3 No 08/01/25 14:11 Months Date of Last Transfusion (if within last 3 months) Ever experience any problems No 08/01/25 14:11 with transfusion(s)? Specify any problems Hx of Preganancy in last 3 No 08/01/25 14:11 Months Nurse Filling Out Transfusion [facility] 08/01/25 14:11 & Questions: Date: 08/01/25 08/01/25 14:11 Time: 14:23 08/01/25 14:11 Patient unable to answer at this time (ie. confused, unrespo /Reproduction History /Reproductive History - blending tank tender helper: /Reproductive Hx- blending tank tender helper Hx Now Gestational Age (in weeks): EDC: Hx Hx Para Hx Section SAB No 08/01/25 14:11 Does the father of the baby or his family experience fever w Father of the baby Malignant Hypertension history comment [facility] Medical History (Updated 08/01/25 @ 14:22 by Catherine Upton) Post-menopausal Seizures Gastric reflux History of Crohn's disease Sleep apnea History of echocardiogram Adrenal adenoma Vaginal atrophy Mixed incontinence Nocturia Overactive bladder Cystocele, midline Insulin dependent diabetes mellitus Ambulates with cane History of renal disease GERD (gastroesophageal reflux disease) Obesity Presence of pessary Presence of insulin pump Gastroparesis Diabetes Wears glasses Wears dentures Depression Anxiety Marijuana use Thyroid disease Arthritis Fatty liver High cholesterol Restless legs Injury of head and neck Dietary restriction History of hiatal hernia Former smoker Leg cramps History of edema History of stress test Cardiology follow-up encounter Diarrhea Nausea & vomiting Abdominal pain Diarrhea Nausea Acute right flank pain Acute hypokalemia Hyperlipidemia HTN (hypertension) Home Medications ?Medication ?Instructions ?Recorded ?Last Taken ?Type lisinopril 20 2 tab PO DAILY bp 09/22/19 0 09/26/24 History mg-hydrochlorothiazide 12.5 mg tablet sertraline 100 mg tablet 100 mg PO DAILY depression 0 09/22/19 09/26/24 History omeprazole 40 mg capsule,delayed 40 mg PO BID gerd 08/2009/27/24 History release trazodone 100 mg tablet 100 mg PO QHS insomnia 12/0909/26/24 History atorvastatin 40 mg tablet 40 mg PO QHS 05/03/24 History blood sugar diagnostic (Accu-Chek #100 ea 05/24/24 Unk nown Rx Guide test strips) cholecalciferol (vitamin D3) 100 2,000 unit PO BID Unknown History mcg (4,000 unit) capsule pen needle, diabetic 32 gauge x #100 ea 11/29/24 Unkno wn Rx (BD Ultra-Fine Sheri Pen Needle) insulin lispro 100 unit/mL 100 unit continuous subcuta neous 12/06/24 Unknown Rx subcutaneous solution infusion .continuous #90 mL estradiol 0.01% (0.1 mg/gram) 1 g vaginal 3XW #42.5 gr ams 04/10/25 Unknown Rx vaginal cream gabapentin 300 mg capsule 300 mg PO .COMPLEX 04/10/25 Unknown History mirabegron 50 mg tablet,extended 50 mg PO QDAY #90 tab s 04/10/25 Unknown Rx release 24 hr (Myrbetriq) empagliflozin 25 mg tablet 25 mg PO QAM #30 tabs 05/21 Unknown Rx (Jardiance) blood-glucose sensor (Dexcom G7 #9 ea 06/06/25 Unknown Rx Sensor device) hyoscyamine sulfate 0.125 mg tablet 0.125 mg PO BID-QI D PRN dyspepsia 06/08/25 Unknown Rx #120 tabs lubiprostone 24 mcg capsule 24 mcg PO BID #60 caps Unknown Rx dicyclomine 10 mg capsule 10 mg PO TID 08/01/25 Unknow n History metformin 500 mg tablet,extended 500 mg PO DAILY 08/01 Unknown History release 24 hr ondansetron 4 mg disintegrating 4 mg PO TID PRN nausea and vomiting 08/01/25 Unknown History tablet Allergy/AdvReac Type Severity Reaction Status Date / Time simvastatin (From Zocor) Allergy Swelling Verified 08/01/25 14:01 Sulfa (Sulfonamide Allergy Swelling Verified 08/01/25 14:01 Antibiotics) Family History Mother Hypertension Lupus Glaucoma Arthritis Neuropathy Brother Diabetes Hypertension Hyperlipemia Other Heart disease Osteoporosis Surgical History (Updated 08/01/25 @ 14:11 by Catherine Upton) History of right knee surgery History of esophagogastroduodenoscopy (EGD) Hx of colonoscopy History of esophagogastroduodenoscopy (EGD) History of hysterectomy H/O foot surgery History of hip surgery History of rotator cuff surgery h/o left hand surgery Social History household members: other details: daughter housing: house Smoking Status: Former smoker Tobacco: How many years used: 35 alcohol intake: never what type of physical activity do you participate in: none do you feel safe at home: Yes Audit: Pertinent Findings Pertinent Findings EKG Perinent findings: May 29, 2024. Sinus rhythm with PSVC's. Right bundle branch block. Echo (EF%) pertinent findings: 07/23/2025. EF of 64%. No significant valvular abnormalities. Consult pertinent findings: July 23, 2025. Dr. Damon?cardiology. 1. Shortness of breath-possibly due to coronary artery disease. Will order stress test and echo. (See above). 2. Hypertension?controlled. Continue current meds. 3. Type 2 diabetes mellitus without complication-controlled. Continue current meds. 4. Right bundle branch block?asymptomatic. 5. Coronary artery calcification-risk stratification with stress test. Recommendation Anesthesia Recommendation Anesthesia recommendation: F/U recommended (Patient had a stress test recommended at the last cardiac visit 07/23/2025. With this stress test never completed? If so can we get the results?)
--- NOTE | 2025-08-03 12:58 | PAT.ANESEVAL ---
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 When Was Last Pacemaker Check QUESTION #4 FULL TEXT: You/Your Family Experience fever (hyperthermia) with Anesthesia Last Oral Intake Last Oral intake: Last Oral Intake NPO since Meds taken in AM with sips of water? 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 Female Yes 08/01/25 14:11 HX of Motion Sickness No 08/01/25 14:11 HX of N/V After Surgery Yes 08/01/25 14:11 Non-Smoker Yes 08/01/25 14:11 Duration of Surgery greater No 08/01/25 14:11 than 60 minutes Number of Risk Factors 3 08/01/25 14:11 PONV Score Moderate Risk 08/01/25 14:11 Height & Weight Height & Weight: Anesthesia: Height & Weight Height 5 ft 3 in 05/30/25 10:36 Respiratory Assessment Respiratory Assessment - capsule filling machine operator: Respiratory Tract Infection Hx - 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 Has anyone observed you stop breathing during sleep? STOP Results Positive 08/01/25 14:11 QUESTION #5 FULL TEXT : Do you snore loudly (louder than talking or can be heard through closed doors)? 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 Specify any problems Hx of Preganancy in last 3 No 08/01/25 14:11 Months Nurse Filling Out Transfusion [facility] 08/01/25 14:11 & Questions: Date: 08/01/25 08/01/25 14:11 Time: 14:23 08/01/25 14:11 Patient unable to answer at this time (ie. 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 filling machine operator Hx Now Gestational Age (in weeks): EDC: Hx Hx Para Hx Section SAB No 08/01/25 14:11 Does the father of the baby or his family experience fever w Father of the baby Malignant Hypertension history comment [facility] Medical History (Updated 08/01/25 @ 14:22 by Catherine Upton) Post-menopausal Seizures Gastric reflux History of Crohn's disease Sleep apnea History of echocardiogram Adrenal adenoma Vaginal atrophy Mixed incontinence Nocturia Overactive bladder Cystocele, midline Insulin dependent diabetes mellitus Ambulates with cane History of renal disease GERD (gastroesophageal reflux disease) Obesity Presence of pessary Presence of insulin pump Gastroparesis Diabetes Wears glasses Wears dentures Depression Anxiety Marijuana use Thyroid disease Arthritis Fatty liver High cholesterol Restless legs Injury of head and neck Dietary restriction History of hiatal hernia Former smoker Leg cramps History of edema History of stress test Cardiology follow-up encounter Diarrhea Nausea & vomiting Abdominal pain Diarrhea Nausea Acute right flank pain Acute hypokalemia Hyperlipidemia HTN (hypertension) Home Medications ?Medication ?Instructions ?Recorded ?Last Taken ?Type lisinopril 20 2 tab PO DAILY bp 09/22/19 09/26/24 History mg-hydrochlorothiazide 12.5 mg tablet sertraline 100 mg tablet 100 mg PO DAILY depression 09/22/19 09/26/24 History omeprazole 40 mg capsule,delayed 40 mg PO BID gerd 12/09/21 09/27/24 History release trazodone 100 mg tablet 100 mg PO QHS insomnia 12/09/21 09/26/24 History atorvastatin 40 mg tablet 40 mg PO QHS 05/03/24 09/26/24 History blood sugar diagnostic (Accu-Chek #100 ea 05/24/24 Unknown Rx Guide test strips) cholecalciferol (vitamin D3) 100 2,000 unit PO BID 09/27/24 Unknown History mcg (4,000 unit) capsule pen needle, diabetic 32 gauge x #100 ea 11/29/24 Unknown Rx (BD Ultra-Fine Sheri Pen Needle) insulin lispro 100 unit/mL 100 unit continuous subcutaneous 12/06/24 Unknown Rx subcutaneous solution infusion .continuous #90 mL estradiol 0.01% (0.1 mg/gram) 1 g vaginal 3XW #42.5 grams 04/10/25 Unknown Rx vaginal cream gabapentin 300 mg capsule 300 mg PO .COMPLEX 04/10/25 Unknown History mirabegron 50 mg tablet,extended 50 mg PO QDAY #90 tabs 04/10/25 Unknown Rx release 24 hr (Myrbetriq) empagliflozin 25 mg tablet 25 mg PO QAM #30 tabs 05/21/25 Unknown Rx (Jardiance) blood-glucose sensor ([employer] G7 #9 ea 06/06/25 Unknown Rx Sensor device) hyoscyamine sulfate 0.125 mg tablet 0.125 mg PO BID-QID PRN dyspepsia 06/08/25 Unknown Rx #120 tabs lubiprostone 24 mcg capsule 24 mcg PO BID #60 caps 07/20/25 Unknown Rx dicyclomine 10 mg capsule 10 mg PO TID 08/01/25 Unknown History metformin 500 mg tablet,extended 500 mg PO DAILY 08/01/25 Unknown History release 24 hr ondansetron 4 mg disintegrating 4 mg PO TID PRN nausea and vomiting 08/01/25 Unknown History tablet Allergy/AdvReac Type Severity Reaction Status Date / Time simvastatin (From Zocor) Allergy Swelling Verified 08/01/25 14:01 Sulfa (Sulfonamide Allergy Swelling Verified 08/01/25 14:01 Antibiotics) Family History Mother Hypertension Lupus Glaucoma Arthritis Neuropathy Brother Diabetes Hypertension Hyperlipemia Other Heart disease Osteoporosis Surgical History (Updated 08/01/25 @ 14:11 by Catherine Upton) History of right knee surgery History of esophagogastroduodenoscopy (EGD) Hx of colonoscopy History of esophagogastroduodenoscopy (EGD) History of hysterectomy H/O foot surgery History of hip surgery History of rotator cuff surgery h/o left hand surgery Social History household members: other details: daughter housing: house Smoking Status: Former smoker Tobacco: How many years used: 35 alcohol intake: never what type of physical activity do you participate in: none do you feel safe at home: Yes Audit: Pertinent Findings HISTORY of Pertinent Findings History of Pertinent Findings: EKG Pertinent Findings EKG Perinent findings May 29, 2024. Sinus 08/02/25 14:34 rhythm with PSVC's. Right bundle branch block. Echo Pertinent Findings Echo (EF%) pertinent findings 07/23/2025. EF of 64%. No 08/02/25 15:53 significant valvular abnormalities. Consult Pertinent Findings Consult pertinent findings July 23, 2025. 08/02/25 15:55 Sleik?cardiology. 1. Shortness of breath- possibly due to coronary artery disease. Will order stress test and echo. (See above). 2. Hypertension?controlled. Continue current meds. 3. Type 2 diabetes mellitus without complication- controlled. Continue current meds. 4. Right bundle branch block?asymptomatic. 5. Coronary artery calcification-risk stratification with stress test. Recommendation Anesthesia Recommendation Anesthesia recommendation: F/U recommended (If EGD is not urgent. should postpone until after risk stratification by stress test scheduled on 08/13/2025. If EGD is urgent, can justify proceeding with EGD prior to stress test.)
--- NOTE | 2025-08-14 11:11 | PAT.ANESEVAL ---
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 When Was Last Pacemaker Check QUESTION #4 FULL TEXT: You/Your Family Experience fever (hyperthermia) with Anesthesia Last Oral Intake Last Oral intake: Last Oral Intake NPO since Meds taken in AM with sips of water? 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 Female Yes 08/01/25 14:11 HX of Motion Sickness No 08/01/25 14:11 HX of N/V After Surgery Yes 08/01/25 14:11 Non-Smoker Yes 08/01/25 14:11 Duration of Surgery greater No 08/01/25 14:11 than 60 minutes Number of Risk Factors 3 08/01/25 14:11 PONV Score Moderate Risk 08/01/25 14:11 Height & Weight Height & Weight: Anesthesia: Height & Weight Height 5 ft 3 in 05/30/25 10:36 Respiratory Assessment Respiratory Assessment - filtration plant mechanic: Respiratory Tract Infection Hx - 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 Has anyone observed you stop breathing during sleep? STOP Results Positive 08/01/25 14:11 QUESTION #5 FULL TEXT : Do you snore loudly (louder than talking or can be heard through closed doors)? 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 Specify any problems Hx of Preganancy in last 3 No 08/01/25 14:11 Months [facility] Filling Out [facility] 08/01/25 14:11 & Questions: Date: 08/01/25 08/01/25 14:11 Time: 14:23 08/01/25 14:11 Patient unable to answer at this time (ie. confused, unrespo /Reproduction History /Reproductive History - filtration plant mechanic: /Reproductive Hx- filtration plant mechanic Hx Now Gestational Age (in weeks): EDC: Hx Hx Para Hx Section SAB No 08/01/25 14:11 Does the father of the baby or his family experience fever w Father of the baby Malignant Hypertension history comment [facility] Medical History (Updated 08/01/25 @ 14:22 by Catherine Upton) Post-menopausal Seizures Gastric reflux History of Crohn's disease Sleep apnea History of echocardiogram Adrenal adenoma Vaginal atrophy Mixed incontinence Nocturia Overactive bladder Cystocele, midline Insulin dependent diabetes mellitus Ambulates with cane History of renal disease GERD (gastroesophageal reflux disease) Obesity Presence of pessary Presence of insulin pump Gastroparesis Diabetes Wears glasses Wears dentures Depression Anxiety Marijuana use Thyroid disease Arthritis Fatty liver High cholesterol Restless legs Injury of head and neck Dietary restriction History of hiatal hernia Former smoker Leg cramps History of edema History of stress test Cardiology follow-up encounter Diarrhea Nausea & vomiting Abdominal pain Diarrhea Nausea Acute right flank pain Acute hypokalemia Hyperlipidemia HTN (hypertension) Home Medications ?Medication ?Instructions ?Recorded ?Last Taken ?Type lisinopril 20 2 tab PO DAILY bp 09/22/19 09/26/24 History mg-hydrochlorothiazide 12.5 mg tablet sertraline 100 mg tablet 100 mg PO DAILY depression 09/22/19 09/26/24 History omeprazole 40 mg capsule,delayed 40 mg PO BID gerd 12/09/21 09/27/24 History release trazodone 100 mg tablet 100 mg PO QHS insomnia 12/09/21 09/26/24 History atorvastatin 40 mg tablet 40 mg PO QHS 05/03/24 09/26/24 History blood sugar diagnostic (Accu-Chek #100 ea 05/24/24 Unknown Rx Guide test strips) cholecalciferol (vitamin D3) 100 2,000 unit PO BID 09/27/24 Unknown History mcg (4,000 unit) capsule pen needle, diabetic 32 gauge x #100 ea 11/29/24 Unknown Rx (BD Ultra-Fine Sheri Pen Needle) insulin lispro 100 unit/mL 100 unit continuous subcutaneous 12/06/24 Unknown Rx subcutaneous solution infusion .continuous #90 mL estradiol 0.01% (0.1 mg/gram) 1 g vaginal 3XW #42.5 grams 04/10/25 Unknown Rx vaginal cream gabapentin 300 mg capsule 300 mg PO .COMPLEX 04/10/25 Unknown History mirabegron 50 mg tablet,extended 50 mg PO QDAY #90 tabs 04/10/25 Unknown Rx release 24 hr (Myrbetriq) empagliflozin 25 mg tablet 25 mg PO QAM #30 tabs 05/21/25 Unknown Rx (Jardiance) blood-glucose sensor ([employer] G7 #9 ea 06/06/25 Unknown Rx Sensor device) hyoscyamine sulfate 0.125 mg tablet 0.125 mg PO BID-QID PRN dyspepsia 06/08/25 Unknown Rx #120 tabs lubiprostone 24 mcg capsule 24 mcg PO BID #60 caps 07/20/25 Unknown Rx dicyclomine 10 mg capsule 10 mg PO TID 08/01/25 Unknown History metformin 500 mg tablet,extended 500 mg PO DAILY 08/01/25 Unknown History release 24 hr ondansetron 4 mg disintegrating 4 mg PO TID PRN nausea and vomiting 08/01/25 Unknown History tablet Allergy/AdvReac Type Severity Reaction Status Date / Time simvastatin (From Zocor) Allergy Swelling Verified 08/01/25 14:01 Sulfa (Sulfonamide Allergy Swelling Verified 08/01/25 14:01 Antibiotics) Family History Mother Hypertension Lupus Glaucoma Arthritis Neuropathy Brother Diabetes Hypertension Hyperlipemia Other Heart disease Osteoporosis Surgical History (Updated 08/01/25 @ 14:11 by Catherine Upton) History of right knee surgery History of esophagogastroduodenoscopy (EGD) Hx of colonoscopy History of esophagogastroduodenoscopy (EGD) History of hysterectomy H/O foot surgery History of hip surgery History of rotator cuff surgery h/o left hand surgery Social History household members: other details: daughter housing: house Smoking Status: Former smoker Tobacco: How many years used: 35 alcohol intake: never what type of physical activity do you participate in: none do you feel safe at home: Yes Audit: Pertinent Findings HISTORY of Pertinent Findings History of Pertinent Findings: EKG Pertinent Findings EKG Perinent findings May 29, 2024. Sinus 08/02/25 14:34 rhythm with PSVC's. Right bundle branch block. Echo Pertinent Findings Echo (EF%) pertinent findings 07/23/2025. EF of 64%. No 08/02/25 15:53 significant valvular abnormalities. Consult Pertinent Findings Consult pertinent findings July 23, 2025. 08/02/25 15:55 Sleik?cardiology. 1. Shortness of breath- possibly due to coronary artery disease. Will order stress test and echo. (See above). 2. Hypertension?controlled. Continue current meds. 3. Type 2 diabetes mellitus without complication- controlled. Continue current meds. 4. Right bundle branch block?asymptomatic. 5. Coronary artery calcification-risk stratification with stress test. Pertinent Findings EKG Perinent findings: [facility] [address] [place] [address] 12 Lead EKG 05/29/24 0129 MR#: [id number] Acct: [id number] Name: LELAND SIMMONS Rep #: [id number] : 1960 63 From: Jeovany Stapleton MD Attending Dr: Status: DEP ER Ordering Dr: Cecil Sanon DO Date: 05/29/24 Location: ED Sex: F C Admitted: Test Reason : CP Blood Pressure : / mmHG Vent. Rate : 070 BPM Atrial Rate : 070 BPM P-R Int : 182 ms QRS Dur : 130 ms QT Int : 414 ms P-R-T Axes : 039 -10 025 degrees QTc Int : 447 ms Sinus rhythm with Premature supraventricular complexes Right bundle branch block Abnormal ECG No previous ECGs available Confirmed by PIETER MARTÍNEZ, JEOVANY ([id number]), video tape editor MARTHA MEEHNA ([id number]) on 06/02/2024 11:53:13 AM Referred By: Confirmed By:JEOVANY STAPLETON MD 06/02/24 1153 Date Jeovany Stapleton MD Recommendation Anesthesia Recommendation Anesthesia recommendation: OPTIMIZED for anesthesia
[2025-08-15] VITALS (8 sets, daily range): BP systolic 80–98; BP diastolic 52–60; PULSE 57–64; RESP 16; TEMP 36.3–36.9; O2SAT 93–99; BMI 27.7
--- OUTSIDE RECORDS SUMMARY | 2025-08-15 05:25 | XMS RPT_ITS | CCD ---
Author Organization [facility] Care Team Providers Care Senior Systems Developer Name Role Phone Baltazar Hameed Unavailable Unavailable PROVIDER, UNKNOWN Unavailable Unavailable Zachary Toney Unavailable Unavailable Zachary Toney Primary Care Provider Dr. Zachary Toney Primary Care Provider Dr. Zachary Toney Referring Provider Dr. Shimon Estrada Attending Provider Dr. Felton Brown Attending Provider Dr. Jorge Suazo Attending Provider SIMA Villarreal Attending Provider Zachary Toney MD Primary Care Provider Dr. Zachary Toney Primary Care Provider Dr. Zachary Toney Referring Provider Dr. Shimon Estrada Attending Provider Dr. Shimon Estrada Referring Provider Dr. Shimon Estrada Other Provider Dr. Mathew Escalante Other Provider Dr. Shimon Estrada Admit Provider Dr. Alexandre Velasco Other Provider Shree PLATA, BONI-Beth Hicks Attending Provider Dr. Caity Rojas Other Provider Zachary Toney MD Primary Care Provider Dr Feng. Zachary Primary Care Provider Feng, Dr. Sharma Referring Provider Dr. Shimon Estrada Attending Provider Jonelle, Dr. Thayer Attending Provider Feng, Dr. Sharma Primary Care Provider Feng, Dr. Sharma Referring Provider Dr. Jorge Suazo Attending Provider Dr. Shimon Estrada Attending Provider Jonelle, Dr. Thayer Attending Provider Zachary Toney MD Primary Care Provider Feng, Dr. Sahrma Primary Care Provider Feng, Dr. Sharma Referring Provider Dr. Shimon Estrada Attending Provider Jonelle, Dr. Thayer Attending Provider SIMA Villarreal Attending Provider Feng, Dr. Sharma Primary Care Provider Feng, Dr. Sharma Referring Provider Dr. Felton Brown Attending Provider SIMA Villarreal Attending Provider Feng, Dr. Sharma Primary Care Provider Feng, Dr. Sharma Referring Provider SIMA Villarreal Attending Provider Dr. Felton Brown Attending Provider Dr. Felton Brown Other Provider Feng, Dr. Sharma Primary Care Provider Feng, Dr. Sharma Referring Provider SIMA Villarreal Attending Provider Dr. Felton Brown Attending Provider Dr. Felton Brown Other Provider Feng MARTÍNEZ, Zachary Geronimo Primary Care Provider JOANNA SRIVASTAVA Attending Unavailable TONEY, LEYDI Primary Care Unavailable TONEY, LEYDI Primary Care Unavailable TONEY, LEYDI Referring Unavailable BRUNOASEBASTIÁN Attending Unavailabl e TONEY, LEYDI Primary Care Unavailable GALLA, SEBASTIÁN CURRY Referring Unavailabl e Jenifer YOUTH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, Priyanka M Unavailable PROVIDER, UNKNOWN Referring Unavailable ZACHARY TONEY Primary Care Unavailable Feng MARTÍNEZ, Dr. Sharma Primary Care Provider Dr. Tiara Up MD Attending Provider Aleksandr MARTÍNEZ, Dr. Ramirez Emergency Provider Jeovanny MARTÍNEZ, Dr. Menjivar Attending Provider Feng MARTÍNEZ, Dr. Sharma Referring Provider Feng MARTÍNEZ, Dr. Sharma Primary Care Physician Jeovanny MARTÍNEZ, Dr. Menjivar Attending Physician Aleksandr MARTÍNEZ, Dr. Ramirez Attending Physician Aleksandr MARTÍNEZ, Dr. Ramirez Emergency Department Physici an Phil PLATA-CChrista Attending Physician Feng, Zachary Primary Care Unavailable Johanna Cramer Attending Unavailable James Brandon Attending Unavailable Toney, Zachary Primary Care Unavailable Toney, Zachary Primary Care Unavailable Toney, Zachary Referring Unavailable Felton Brown Attending Unavailable Christa Villarreal Attending Unavailable Toney, Zachary Referring Unavailable Toney, Zachary Primary Care Unavailable Christa Villarreal Attending Unavailable Toney, Zachary Primary Care Unavailable Toney, Zachary Referring Unavailable Toney, Zachary Primary Care Unavailable Toney, Zachary Referring Unavailable Felton Brown Consulting Unavailable Felton Brown Attending Unavailable Toney, Zachary Primary Care Unavailable Toney, Zachary Referring Unavailable KevinAnan Attending Unavailable Toney, Zachary Referring Unavailable Toney, Zachary Primary Care Unavailable Christa Villarreal Attending Unavailable Tiara Up Attending Unavailable Toney, Zachary Referring Unavailable Toney, Zachary Primary Care Unavailable Christa Villarreal Referring Unavailable Toney, Zachary Primary Care Unavailable Christa Villarreal Attending Unavailable TONEY, LEYDI Referring Unavailable TONEY, LEYDI Primary Care Unavailable TONEY, LEYDI Primary Care Unavailable FRIDA LOPEZ Attending Unavail able TONEY, LEYDI Primary Care Unavailable MAINE MARVIN Attending Unavailable RENUKA LOPEZ Referring Unavailable TONEY, ZACHARY Geronimo Attending Unavailable TONEY, LEYDI Primary Care Unavailable SELF Referring Unavailable TONEY, LEYDI Referring Unavailable TONEY, LEYDI Primary Care Unavailable TONEY, LEYDI Primary Care Unavailable BULLMARISA Referring Unavailable TONEY, LEYDI Primary Care Unavailable BULLMARISA ESTEVEZ Referring Unavailable TONEY, LEYDI Primary Care Unavailable BULL, MARISA Referring Unavailable TONEY, LEYDI Primary Care Unavailable BULL, MARISA Referring Unavailable SELF Referring Unavailable ULISES SEARS Attending Unavailable TONEY, LEYDI Primary Care Unavailable JAVIER HOLT Attending Unavailable ULISES SEARS Referring Unavailable TONEY, LEYDI Primary Care Unavailable TONEY, LEYDI Primary Care Unavailable PRIYANKA MARIE Attending Unavailable TNOEY, LEYDI Primary Care Unavailable PRIYANKA MARIE Referring Unavailable TONEY, LEYDI Primary Care Unavailable TONEY, LEYDI Attending Unavailable Allergies Allergy Classification Reported Allergen(s) Allergy Type Date of Onset Reaction(s) Facility HMG-CoA Reductase Inhibitors (statins) (1 source) Simvastatin Drug Allergy 6 Swelling [facility] Sulfonamides (antibiotic) (1 source) Sulfonamides (Antibiotic) Drug Allergy 6 Swelling, Itching [facility] Work Phone: (20 sources) Simvastatin; Translations: [SIMVASTATIN] Drug Allergy 6 Swelling [facility], [place] Comment on above: SWELLING AND ITCHING (1 source) Sulfonamides (Antibiotic) Propensity to adverse reactions to drug 5 [place], [place] (20 sources) Sulfonamides (Antibiotic); Translations: [SULFA (SULFONAMIDE ANTIBIOTICS)] Allergy to substance 6 Swelling, Itching [facility] Work Phone: Comment on above: SWELLING AND ITCHING (20 sources) Seasonal allergy; Translations: [SEASONAL ALLERGIES] Propensity to adverse reactions 8 Intolerance [facility] Work Phone: (1 source) Simvastatin Drug Allergy 5 [facility] Repository Medications Current Medications Medication Drug Class(es) Dates Sig (Normalized) Sig (Original) amoxicillin 500 mg oral capsule (2 sources) Penicillin-class Antibacterial Start: 03-08-2024 End: 03-18-2024 take 1 capsule by mouth twice daily amoxicillin (AMOXIL) 500 mg capsule Take 1 capsule by mouth two times a day for 10 days. 20 capsule 0 03/08/2024 03/18/2024 Active atorvastatin 40 mg oral tablet (20 sources) HMG-CoA Reductase Inhibitor Start: 01-01-2021 End: 06-16-2024 take 1 tablet by mouth at bedtime Atorvastatin 40 mg tablet Active 40 mg PO AT BEDTIME May 03, 2024 12:00am Complies with drug therapy Start: 09-22-2019 End: 05-03-2024 take 2 tablets by mouth at bedtime Atorvastatin 20 MG tablet Discontinued 40 mg PO AT BEDTIME September 22, 2019 1:00am May 03, 2024 10:20am cholesterol Start: 09-22-2019 take 40 mg by mouth at bedtime Atorvastatin Active 40 MG PO AT BEDTIME September 22, 2019 1:00am take 1 tablet by iris th once daily atorvastatin (LIPITOR) 20 MG tablet Take 20 mg by mouth daily 0 Active Comment on above: Take 1 tablet by iris th once daily. Blood Glucose Monitoring Suppl (ONE TOUCH BASIC SYSTEM) W/DEVICE KIT (1 source) Start: 04-24-2016 Blood Glucose Monitoring Suppl (ONE [employer] BASIC SYSTEM) W/DEVICE KIT Indications: Uncontrolled type 2 diabetes mellitus without complication, with long-term current use of insulin 1 kit by Does not apply route daily 1 kit 0 04/24/2016 Active Blood-Glucose Meter monitoring kit (1 source) Start: 05-08-2023 End: 05-09-2023 Blood-Glucose Meter monitoring kit Indications: Type 2 diabetes mellitus with diabetic neuropathy, with long-term current use of insulin (HCC) Glucose Meter of Choice - Kit - Dx: Type 2 DM - Uncontrolled E11.65. Insulin: Yes. 1 Each 0 05/08/2023 05/09/2023 Active Comment on above: Glucose Meter of Cho ice - Kit - Dx: Type 2 DM - Uncontrolled E11.65. Insulin: Yes. Blood-Glucose Sensor (Dexcom G7 Sensor) device (6 sources) Start: 12-20-2024 Blood-Glucose Sensor (Dexcom G7 Sensor) device Active 0 .Route 9 December 20, 2024 3:13pm Diabetes mellitus Type 1 diabetes mellitus with hyperglycemia 1 sensor q 10 days Start: 05-03-2024 End: 12-20-2024 Blood-Glucose Sensor (Dexcom G7 Sensor) device Discontinued 0 .Route 9 May 03, 2024 12:00am December 20, 2024 3:13pm Diabetes mellitus Type 1 diabetes mellitus with hyperglycemia 1 sensor q 10 days cephalexin 500 mg oral capsule (11 sources) Cephalosporin Antibacterial Start: 04-05-2025 take 1 capsule by mouth every twelve hours Cephalexin 500 mg capsule Active 500 mg PO EVERY 12 HOURS 14 0 April 05, 2025 12:00am Complies with drug therapy Start: 03-18-2022 End: 03-28-2022 take 1 capsule by mouth four times daily cephALEXin (KEFLEX) 500 mg capsule Take 1 capsule by mouth four times daily for 10 days. 40 capsule 0 03/18/2022 03/28/2022 Active Start: 02-28-2022 End: 03-05-2022 take 1 capsule by mouth four times daily cephALEXin (KEFLEX) 500 mg capsule Take 1 capsule by mouth four times daily for 5 days. 20 capsule 0 02/28/2022 03/05/2022 Active Comment on above: Take 1 capsule by mo uth four times daily for 5 days. Take 1 capsule by mo uth four times daily for 10 days. cholecalciferol 2000 unt disintegrating oral tablet (7 sources) Vitamin D Start: 09-27-19 take 1 capsule by mouth twice daily Cholecalciferol (Vitamin D3) 100 mcg (4,000 unit) capsule Active 2000 U PO TWICE A DAY September 27, 2024 1:00am Complies with drug therapy Start: 08-27-2022 End: 02-01-2023 take 1 capsule by mouth once daily Cholecalciferol, Vitamin D3, 50 mcg (2,000 unit) cap Indications: Vitamin D deficiency Take 1 capsule by mouth once daily. 0 08/27/2022 02/01/2023 Discontinued Comment on above: Take 1 capsule by mo uth once daily. empagliflozin 25 mg oral tablet (7 sources) Sodium-Glucose Cotransporter 2 Inhibitor Start: 024 End: 025 take 1 tablet by mouth once daily in the morning Empagliflozin (Jardiance) 25 mg tablet Active 25 mg PO EVERY MORNING 30 5 May 21, 2025 1:42pm Diabetes mellitus Type 1 diabetes mellitus with hyperglycemia Complies with drug therapy ergocalciferol 1.25 mg oral capsule (20 sources) Provitamin D2 Compound Start: 023 take 1 capsule by mouth every week ergocalciferol 50,000 unit capsule (VITAMIN D2, DRISDOL) Indications: Vitamin D deficiency Take 1 capsule by mouth one time a week. Use as directed. 12 capsule 05/25/2023 Active Comment on above: Take 1 capsule by mo uth one time a week. Use as directed. estradiol 0.1 mg/ml vaginal cream (20 sources) Estrogen Start: Estradiol 0.01 % (0.1 mg/gram) cream Active 1 g VAGINAL 3 TIMES A WEEK 42.5 3 April 10, 2025 12:01pm Complies with drug therapy Start: 05-29-2024 End: 04-10-2025 Estradiol 0.01 % (0.1 mg/gra m) cream Discontinued 1 NMA VAGINAL EVERY WEEK May 29, 2024 12:00am April 10, 2025 12:01pm Start: 09-15-2021 estradiol (EST RACE) 0.01 % (0.1 mg/gram) vaginal cream 09/15/2021 Active fexofenadine hydrochloride 180 mg oral tablet (20 sources) Histamine-1 Receptor Antagonist Start: 06-15-2022 End: 11-18-2023 take 1 tablet by mouth once daily fexofenadine (MANJULA ALLERGY) 180 mg tablet Indications: Seasonal allergies Take 1 tablet by mouth once daily. 90 tablet 1 11/18/2023 Active Comment on above: Take 1 tablet by iris once daily. gabapentin 300 mg oral capsule (20 sources) Anti-epileptic Agent Start: 12-18-2024 End: 05-29-2025 take 1 capsule by mouth three times daily Gabapentin 300 mg capsule Active 300 mg PO THREE TIMES A DAY April 10, 2025 12:00am Complies with drug therapy Start: 11-02-2023 End: 04-10-2025 take 3 capsules by mouth at bedtime Gabapentin 300 mg capsule Discontinued 900 mg PO AT BEDTIME November 02, 2023 1:00am April 10, 2025 11:39am Start: 11-02-2023 take 900 mg by mouth at bedtim e Gabapentin Active 900 MG PO AT BEDTIME November 02, 2023 1:00am Start: 10-22-2021 End: 05-29-2025 take 1 capsule by mouth twice daily Gabapentin 300 mg capsule Discontinued 300 mg PO TWICE A DAY December 17, 2022 8:24am April 10, 2025 11:39am pain Start: 10-22-2021 End: 12-17-2022 Gabapentin 300 mg capsule Discontinued 300 NMA PO AT BEDTIME October 22, 2021 1:00am December 17, 2022 8:24am pain Start: 10-22-2021 End: 12-17-2022 take 80109 mg by mouth four times daily Gabapentin Active 49388 MG PO .QID December 17, 2022 8:24am Start: 10-03-2021 End: 07-12-2022 take 1 capsule by mouth once daily at bedtime gabapentin (NEURONTIN) 300 mg capsule Indications: Bilateral hip pain , Degeneration of intervertebral disc of cervical region , Restless legs Take 1 capsule by mouth daily at bedtime for 90 days. 30 capsule 2 04/13/2022 06/15/2022 Discontinued Comment on above: Take 1 capsule by mo [facility] daily at bedtime for 90 days. Take 1 capsule by mo ut twice daily for 90 days. Take 1 capsule at ar ound Noon, 1 capsule with dinner and 2 capsules at bedtime. Take 1 capsule at ar ound Noon, 1 capsule with dinner and 3 capsules at bedtime. hydroCHLOROthiazide 12.5 mg / lisinopril 20 mg oral tablet (20 sources) Thiazide Diuretic, Angiotensin Converting Enzyme Inhibitor Start: 09-22-2019 End: 06-16-2024 Lisinopril-Hydrochl orothiazide 1 EACH tablet Active 1 {tbl} PO DAILY September 22, 2019 1:00am bp Complies with drug therapy Start: 09-22-2019 take 1 tablet by iris once daily Lisinopril-Hydrochlorothiazide Active 1 TABLET PO DAILY September 22, 2019 1:00am Comment on above: Take 2 tablets by mo [facility] once daily. insulin aspart, human 100 unt/ml injectable solution (20 sources) Insulin Analog Start: 09-17-2021 NOVOLOG U-100 INSULIN ASPART 100 unit/mL For insulin pump. Per endocrinology. 09/17/2021 Active Start: 08-11-2021 End: 09-04-2021 Insulin Aspart U-100 100 uni t/mL solution Discontinued 100 U SC DAILY 30 August 11, 2021 1:00am September 04, 2021 5:00pm via insulin pump Start: 04-09-2021 End: 08-11-2021 Insulin Aspart U-100 100 uni t/mL (3 mL) insulin pen Discontinued 6 U SC THREE TIMES A DAY 15 August 01, 2021 5:37pm August 11, 2021 3:22pm diabetes Comment on above: For insulin pump. Sundar r endocrinology. insulin lispro 100 unt/ml injectable solution (20 sources) Insulin Analog Start: 12-06-2024 Insulin Lispro 100 unit/mL solution Active 100 U continuous subcutaneous infusion .continuous 90 December 06, 2024 12:00am Type 1 diabetes mellitus with hyperglycemia Type 1 diabetes mellitus with hyperglycemia Complies with drug therapy Start: 11-29-2024 End: 12-06-2024 Insulin Lispro 100 unit/mL c artridge Discontinued 100 U continuous subcutaneous infusion Continuous 90 November 29, 2024 4:49pm December 06, 2024 8:23am Type 1 diabetes mellitus with hyperglycemia Type 1 diabetes mellitus with hyperglycemia hyperglycemia INSULIN PUMP Start: 09-25-2024 End: 11-29-2024 Insulin Lispro 100 unit/mL c artridge Discontinued 1 U SC Continuous September 25, 2024 1:00am November 29, 2024 4:49pm hyperglycemia INSULIN PUMP Start: 05-22-2022 End: 09-25-2024 Insulin Lispro (Humalog U-10 0 Insulin) 100 unit/mL solution Discontinued 100 U SC DAILY 30 6 April 28, 2024 4:25pm September 25, 2024 2:57pm Start: 04-09-2022 End: 05-22-2022 Insulin Lispro (Humalog U-10 0 Insulin) 100 unit/mL cartridge Discontinued 100 U continuous subcutaneous infusion .continuous 30 0 May 13, 2022 11:48am May 22, 2022 4:24pm Diabetes mellitus Type 2 diabetes mellitus with hyperglycemia custodial (current) use of insulin INSULIN PUMP Start: 12-01-2021 End: 04-09-2022 Insulin Lispro (Humalog U-10 0 Insulin) 100 unit/mL Cartridge Discontinued 0 U SC DAILY December 01, 2021 12:00am April 09, 2022 10:12am INSULIN PUMP Start: 12-01-2021 End: 04-09-2022 Insulin Lispro (Humalog U-10 0 Insulin) 100 unit/mL Cartridge Discontinued 0 UNIT SC DAILY December 01, 2021 12:00am April 09, 2022 10:12am ipratropium bromide 0.021 mg/actuat metered dose nasal spray (2 sources) Anticholinergic Start: 03-15-2025 Ipratropium [place] (ATROVENT) 21 mcg (0.03 %) nasal spray Use 2 sprays in the nose every 12 hours. 90 mL 3 03/15/2025 Active lisinopril 10 mg oral tablet (1 source) Angiotensin Converting Enzyme Inhibitor take 1 tablet by mouth once daily lisinopril (PRINIVIL;ZESTRIL ) 10 MG tablet Take 10 mg by mouth daily 0 Active lubiprostone 0.008 mg oral capsule (7 sources) Chloride Channel Activator Start: 01-15-2025 End: 04-18-2025 take 1 capsule by mouth twice daily Lubiprostone (Amitiza) 8 mcg capsule Active 8 ug PO TWICE A DAY 60 3 April 18, 2025 7:40am Complies with drug therapy Start: 07-24-2024 End: 09-25-2024 take 1 capsule by mouth twice daily Lubiprostone (Amitiza) 8 mcg capsule Discontinued 8 ug PO TWICE A DAY 60 3 July 24, 2024 1:00am September 25, 2024 3:00pm 24 hr metFORMIN hydrochloride 500 mg extended release oral tablet (20 sources) Biguanide Start: 09-26-2023 End: 06-11-2025 take 1 tablet by mouth once daily at breakfast metFORMIN ER (GLUCOPHAGE XR) 500 mg 24 hr tablet Take 1 tablet by mouth daily with breakfast. 90 tablet 3 06/16/2024 06/11/2025 Active Start: 05-14-2023 End: 09-24-2023 take 1 tablet by mouth once daily at breakfast metFORMIN ER (GLUCOPHAGE XR) 500 mg 24 hr tablet Take 1 tablet by mouth daily with breakfast. 90 tablet 0 05/14/2023 09/24/2023 Discontinued Start: 08-12-2020 End: 05-10-2021 Metformin 500 mg tablet exte nded release 24 hr Discontinued 1000 mg PO TWICE A DAY August 12, 2020 12:38pm May 10, 2021 10:15am Start: 08-12-2020 End: 05-10-2021 take 1000 mg by mouth twice daily Metformin Discontinued 1000 MG PO TWICE A DAY August 12, 2020 12:38pm May 10, 2021 10:15am Start: 09-22-2019 End: 08-12-2020 Metformin 500 MG tablet exte nded release 24 hr Discontinued 1500 mg PO TWICE A DAY September 22, 2019 1:00am August 12, 2020 12:39pm Start: 09-22-2019 End: 08-12-2020 take 1500 mg by mouth twice daily Metformin Discontinued 1500 MG PO TWICE A DAY September 22, 2019 1:00am August 12, 2020 12:39pm Start: 11-24-2016 take 2 tablets by mo [facility] twice daily at mealtime metFORMIN (GLUCOPHAGE) 500 MG tablet Take 2 tablets by mouth 2 times daily (with meals) 360 tablet 3 11/24/2016 Active Comment on above: Take 1 tablet by iris daily with breakfast. 24 hr metoprolol succinate 25 mg extended release oral tablet (1 source) beta-Adrenergic Tracie take 1 tablet by mouth once daily metoprolol (TOPROL-XL) 25 MG XL tablet Take 25 mg by mouth daily 0 Active 24 hr mirabegron 50 mg extended release oral tablet (20 sources) beta3-Adrenergic Agonist Start: 05-03-2024 End: 04-10-2025 take 1 tablet by mouth once daily Mirabegron (Myrbetriq) 50 mg tablet extended release 24 hr Active 50 mg PO daily April 10, 2025 12:00pm Complies with drug therapy Start: 06-23-2021 End: 06-15-2022 take 1 tablet by mouth once daily Mirabegron (Myrbetriq) 50 mg tablet extended release 24 hr Active 50 MG PO DAILY June 23, 2021 9:34am Comment on above: Take 50 mg by mouth once daily. As of 09/25/21 not taking but plans to restart at upcoming urology appt later this month. mometasone furoate 0.05 mg/actuat metered dose nasal spray (4 sources) Corticosteroid Start: 5 End: 5 mometasone (NASONEX) 50 mcg/actuation nasal spray USE 2 SPRAYS IN THE NOSE ONCE DAILY. 25.5 mL 2 04/10/2025 Active 1 ml morphine sulfate 10 mg/ml injection (2 sources) Opioid Agonist Start: 0 End: 0 morphine injection 4 mg omeprazole 40 mg delayed release oral capsule (20 sources) Proton Pump Inhibitor Start: 2 End: 4 take 1 capsule by mouth twice daily Omeprazole 40 mg capsule,delayed release(DR/EC) Active 40 mg PO TWICE A DAY December 09, 2021 12:00am gerd Complies with drug therapy Start: 06-11-2021 End: 05-08-2023 take 40 mg by mouth once daily Omeprazole Active 40 MG PO DAILY December 09, 2021 12:00am take 1 capsule by mo ut once daily omeprazole (PRILOSEC) 40 MG capsule Take 40 mg by mouth daily 0 Active Comment on above: Take 1 capsule by mo uth once daily. Take 1 capsule by mo uth twice daily. Take 1 capsule by mo uth two times a day. pantoprazole 40 mg delayed release oral tablet (1 source) Proton Pump Inhibitor Start: 1 take 1 tablet by mouth once daily Pantoprazole (Protonix) 40 mg tablet,delayed release (DR/EC) Active 40 MG PO DAILY April 09, 2021 1:37pm sertraline 100 mg oral tablet (20 sources) Serotonin Reuptake Inhibitor Start: 0 End: 04-21-202 5 take 1 tablet by mouth once daily Sertraline 100 MG tablet Active 100 mg PO DAILY September 22, 2019 1:00am depression Complies with drug therapy Comment on above: Take 1 tablet by iris once daily. Completed/Discontinued Medications Medication Drug Class(es) Dates Sig (Normalized) Sig (Original) acetaminophen 325 mg / oxyCODONE hydrochloride 5 mg oral tablet (20 sources) Opioid Agonist Start: 08-12-2020 End: 09-02-2020 Oxycodone-Acetamino phen 5-325 mg tablet Discontinued 1 {tbl} PO EVERY 6 HOURS as needed 0 August 12, 2020 1:00am September 02, 2020 2:04pm Start: 08-12-2020 End: 09-02-2020 take 1 tablet by mouth every six hours Oxycodone-Acetaminophen Discontinued 1 TABLET PO EVERY 6 HOURS August 12, 2020 1:00am September 02, 2020 2:04pm Start: 07-14-2020 End: 07-17-2020 take 1 tablet by mouth every six hours as needed Oxycodone-Acetaminophen Discontinued 1 TABLET PO EVERY 6 HOURS NEEDED 12 3 July 14, 2020 July 17, 2020 1:02am Start: 07-13-2020 End: 07-17-2020 Oxycodone-Acetaminophen 1 TA BLET tablet Discontinued 1 {tbl} PO EVERY 6 HOURS NEEDED as needed for Pain 12 3 0 July 14, 2020 July 16, 2020 1:00am July 17, 2020 1:02am Fracture of foot Unspecified fracture of unspecified foot, initial encounter for closed fracture amoxicillin 875 mg / clavulanate 125 mg oral tablet (6 sources) Penicillin-class Antibacterial Start: 08-06-2023 take 1 tablet by mouth every twelve hours amoxicillin-clavulanate potassium (AUGMENTIN) 875-125 mg per tablet Take 1 tablet by mouth every 12 hours. 0 08/06/2023 Active Start: 08-06-2023 End: 11-02-2023 Amoxicillin-Pot Clavulanate 875-125 mg tablet Discontinued 1 {tbl} PO TWICE A DAY 20 0 August 06, 2023 1:00am November 02, 2023 1:57pm Start: 08-06-2023 End: 11-02-2023 take 1 tablet by mouth twice daily Amoxicillin-Pot Clavulanate Discontinued 1 TABLET PO TWICE A DAY August 06, 2023 1:00am November 02, 2023 1:57pm Comment on above: Take 1 tablet by iris th every 12 hours. betamethasone 0.5 mg/ml / clotrimazole 10 mg/ml topical cream (20 sources) Azole Antifungal, Corticosteroid Start: 12-13-2020 End: 08-27-2022 clotrimazole-betamethas one (LOTRISONE) cream APPLY TO AFFECTED AREA TWICE A DAY 30 g 1 12/13/2020 08/27/2022 Discontinued Comment on above: APPLY TO AFFECTED AR EA TWICE A DAY Blood-Glucose Meter ([employer] Verio Flex Meter) misc (7 sources) Start: 03-11-2023 End: 06-24-2023 Blood-Glucose Meter ([employer] Verio Flex Meter) misc Discontinued 0 .Route 1 0 March 11, 2023 12:00am June 24, 2023 11:14am As directed Start: 03-11-2023 End: 06-24-2023 Blood-Glucose Meter (Onetouc h Verio Flex Meter) misc Discontinued 0 .Route 1 March 10, 2023 11:00pm June 24, 2023 10:14am As directed Start: 03-11-2023 End: 06-24-2023 Blood-Glucose Meter (Onetou[employer] h Verio Flex Meter) misc Discontinued 0 .Route 1 March 11, 2023 12:00am June 24, 2023 11:14am As directed Start: 03-11-2023 Blood-Glucose Meter ([employer] Verio Flex Meter) misc Active 0 .Route 1 March 11, 2023 12:00am As directed Blood-Glucose Sensor (Dexcom G6 Sensor) device (20 sources) Start: 03-15-2024 End: 05-03-2024 Blood-Glucose Sensor (Dexcom G6 Sensor) device Discontinued 0 .Route 9 March 15, 2024 12:19pm May 03, 2024 10:38am Diabetes mellitus Type 1 diabetes mellitus with hyperglycemia 1 sensor q 10 days Start: 08-04-2023 End: 03-15-2024 Blood-Glucose Sensor (Dexcom G6 Sensor) device Discontinued 0 .Route 9 August 04, 2023 10:40am March 15, 2024 12:19pm Diabetes mellitus Type 1 diabetes mellitus with hyperglycemia 1 sensor q 10 days Start: 08-04-2023 Blood-Glucose Sensor (Dexcom G6 Sensor) device Active 0 .Route August 04, 2023 10:40am 1 sensor q 10 days Start: 08-04-2023 Blood-Glucose Sensor (Dexcom G6 Sensor) device Active 0 .Route August 04, 2023 9:40am 1 sensor q 10 days Start: 06-14-2023 End: 08-04-2023 Blood-Glucose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 1/PEDIATRICIAN/MEDICAL DOCTOR LVL LUMBAR 1994 EGD 05/28/2021 ESOPHAGOGASTRODUODENOSCOPY TRANSORAL DIAGNOSTIC 03/04/2004 EGD ESOPHAGOGASTRODUODENOSCOPY TRANSORAL DIAGNOSTIC 04/07/2012 EGD ESOPHAGOGASTRODUODENOSCOPY TRANSORAL DIAGNOSTIC 04/10/2019 EGD EXCI (more content not included)... Normal [facility] XR THORACIC 3V AP/LAT/SWIMME RSon 06-05-2025 XR THORACIC 3V AP/LAT/SWIMMERS * * *Final Report* * * DATE OF EXAM: Jun 05 2025 12:23PM WOX [id number] - XR THORACIC 3V AP/LAT/SWIMMERS / PROCEDURE REASON: Upper back pain on right side * * * * Physician Interpretation * * * * TITLE: XR THORACIC 3V AP/LAT/SWIMMERS CLINICAL INDICATION: Back pain TECHNIQUE: 3 view radiographic study of the thoracic spine COMPARISON: None FINDINGS: Postsurgical changes from anterior cervical discectomy and fusion from C4 through C7. Preservation of thoracic vertebral body height. Scattered mild to moderate degenerative changes with endplate sclerosis and marginal osteophyte formation. IMPRESSION: Preservation of thoracic vertebral body height. Degenerative changes. Machine Installer: [facility] Transcribe Date/Time: Jun 05 2025 12:44P Dictated by : COLE HARRISON MD This examination was interpreted and the report reviewed and electronically signed by: COLE HARRISON MD on Jun 05 2025 12:50PM EST [id number] Normal [facility] Endocrinology Visit Reporton 05-30-2025 Endocrinology Visit Report [facility] [address] [place] [address] OFFICE VISIT Date of Service: 05/30/25 MR#: [id number] Acct: [id number] Name: STEFANIE SIMMONS Rep #: [id number] : 1960 Provider: SIMA lira Age/Sex: 64/F Location: [facility] Status: Signed Intake Vital Signs 11/29/24 10:36 04/10/25 11:41 05/30/25 10:36 Height 5 ft 3 in 5 ft 3 in 5 ft 3 in Weight: 159 lb BMI 28.1 BP 136/81 H Blood Pressure Location Lt brachial Position Sitting Pulse 60 Pulse Source Monitor Pulse Oximetry (%) 97 Oxygen Delivery Method room air Intake Visit Reasons: 6 M FU Chief Complaint: f/u diabetes Featherer Required: No Accompanied by: Granddaughter Is patient in pain?: No Allergies simvastatin (From Zocor) Allergy (Verified 05/30/25 10:36) Swelling Sulfa (Sulfonamide Antibiotics) Allergy (Verified 05/30/25 10:36) Swelling Medications ???Medication ???Instructions ???Recorded ???Confirmed ???Type lisinopril 20 1 tab PO DAILY bp 09/22/19 5 History mg-hydrochlorothiazide 12.5 mg tablet sertraline 100 mg tablet 100 mg PO DAILY depression 0 05/30/25 History omeprazole 40 mg capsule,delayed 40 mg PO BID gerd 12/09/21 5 History release trazodone 100 mg tablet 100 mg PO QHS insomnia 12/09/21 History atorvastatin 40 mg tablet 40 mg PO QHS 05/03/24 05/30/25 His tory blood sugar diagnostic (Accu-Chek #100 ea 05/24/24 05/30/25 Rx Guide test strips) cholecalciferol (vitamin D3) 100 2,000 unit PO BID 09/27/24 5 History mcg (4,000 unit) capsule pen needle, diabetic 32 gauge x #100 ea 11/29/24 05/30/25 Rx /32 (BD Ultra-Fine Sheri Pen Needle) insulin lispro 100 unit/mL 100 unit continuous subcutaneous 0 12/06/24 05/30/25 Rx subcutaneous solution infusion .continuous #90 mL blood-glucose sensor (Dexcom G7 #9 ea 12/20/24 05/30/25 Rx Sensor device) cephalexin 500 mg capsule 500 mg PO Q12 #14 CAPSULES 5 05/30/25 Rx estradiol 0.01% (0.1 mg/gram) 1 g vaginal 3XW #42.5 grams 05/30/25 Rx vaginal cream gabapentin 300 mg capsule 300 mg PO TID 04/10/25 05/30/25 Hi story hyoscyamine sulfate 0.125 mg tablet 0.125 mg PO BID-QID PRN dyspeps ia 04/10/25 05/30/25 History mirabegron 50 mg tablet,extended 50 mg PO QDAY 04/10/25 05/30/25 Hi story release 24 hr (Myrbetriq) mirabegron 50 mg tablet,extended 50 mg PO QDAY #90 tabs 04/10/25 Rx release 24 hr (Myrbetriq) lubiprostone 8 mcg capsule 8 mcg PO BID #60 caps 04/18/2509/23 Rx (Amitiza) empagliflozin 25 mg tablet 25 mg PO QAM #30 tabs 05/21/2509/23 Rx (Jardiance) PFSH Medical History Adrenal adenoma Vaginal atrophy Mixed incontinence Nocturia Overactive bladder Cystocele, midline Insulin dependent diabetes mellitus Ambulates with cane History of renal disease GERD (gastroesophageal reflux disease) Obesity Presence of pessary Presence of insulin pump Gastroparesis Diabetes Wears glasses Wears dentures Depression Anxiety Marijuana use Thyroid disease Arthritis Fatty liver High cholesterol Restless legs Injury of head and neck Dietary restriction History of hiatal hernia Former smoker Leg cramps History of edema History of stress test Cardiology follow-up encounter Diarrhea Nausea vomiting Abdominal pain Diarrhea Nausea Acute right flank pain Acute hypokalemia Hyperlipidemia HTN (hypertension) Surgical History History of esophagogastroduodenoscopy (EGD) Hx of colonoscopy History of esophagogastroduodenoscopy (EGD) History of hysterectomy H/O foot surgery History of hip surgery History of rotator cuff surgery History of left knee surgery h/o left hand surgery Family History Mother Hypertension Lupus Glaucoma Arthritis Neuropathy Brother Diabetes Hypertension Hyperlipemia Other Heart disease Osteoporosis Social History household members: other details: daughter housing: house Smoking Status: Former smoker Tobacco: How many years used: 35 alcohol intake: never what type of physical activity do you participate in: none do you feel safe at home: Yes HPI HPI Chief Complaint: f/u diabetes Details: STEFANIE SIMMONS, is a 64 F who presents to the office today for evaluation and management of diabetes. A1C today is 6.2%, improved from 11/29/24 at 6.8%. She has lost 13 lbs since that time. Currently using Tslim insulin pump with Dexcom G7. Insulin pump downloaded and reviewed- she (more content not included)... Normal [facility] - Chemistry and C hemistry - challengeOrdered By: Tiara Up on 04-10-2025 Bilirubin Ql (U) Negative [facility] Glucose Ql (U) 500 g/dL [facility] Ketones Ql (U) Negative [facility] pH (U) 5 [pH] [facility] Specific gravity (U) [Rel density] 1.010 [facility] Urobilinogen (U) [Mass/Vol] Negative [facility] - Hematology and Cell countsOrdered By: Tiara Up on 04-10-2025 Hemoglobin Ql (U) Negative [facility] - UrinalysisOrder ed By: Tiara Up on 04-10-2025 Nitrite Ql (U) Negative [facility] Protein Ql (U) Negative [facility] MR/TOMMYon 04-10-2025 /TOMMY [facility] [address], [address] [place] [address] OFFICE VISIT Date of Service: 04/10/25 MR#: [id number] Acct: [id number] Name: STEFANIE SIMMONS Rep #: [id number] : 1960 Provider: Dr. Tiara Meyers i, MD Age/Sex: 64/F Location: [facility] [place] Status: Signed Intake Vital Signs 11/29/24 10:36 04/05/25 15:16 04/10/25 11:41 Height 5 ft 3 in 5 ft 3 in 5 ft 3 in Weight: 161 lb BMI 28.5 BP 120/75 Pulse 86 Intake Visit Reasons: 12MO PESSARY CLEANING MED F/U Chief Complaint: 12month pessary cleaning and medication follow up Featherer Required: No Accompanied by: Self Allergies simvastatin (From Zocor) Allergy (Verified 04/05/25 15:18) Swelling Sulfa (Sulfonamide Antibiotics) Allergy (Verified 04/05/25 15:18) Swelling Medications ???Medication ???Instructions ???Recorded ???Confirmed ???Type lisinopril 20 1 tab PO DAILY bp 09/22/19 5 History mg-hydrochlorothiazide 12.5 mg tablet sertraline 100 mg tablet 100 mg PO DAILY depression 0 04/10/25 History pen needle, diabetic 32 gauge x #150 ea 08/01/21 04/10/25 Rx 5/32 (BD Ultra-Fine Sheri Pen Needle) omeprazole 40 mg capsule,delayed 40 mg PO BID gerd 12/09/21 5 History release trazodone 100 mg tablet 100 mg PO QHS insomnia 12/09/21 History blood sugar diagnostic (OneTouch #100 ea 03/11/23 04/10/25 Rx Ultra Test strips) atorvastatin 40 mg tablet 40 mg PO QHS 05/03/24 04/10/25 His tory blood sugar diagnostic (Accu-Chek #100 ea 05/24/24 04/10/25 Rx Guide test strips) cholecalciferol (vitamin D3) 100 2,000 unit PO BID 09/27/24 5 History mcg (4,000 unit) capsule empagliflozin 25 mg tablet 25 mg PO QAM #30 tabs 11/15/2408/23 Rx (Jardiance) pen needle, diabetic 32 gauge x #100 ea 11/29/24 04/10/25 Rx 5/32 (BD Ultra-Fine Sheri Pen Needle) insulin lispro 100 unit/mL 100 unit continuous subcutaneous 0 12/06/24 04/10/25 Rx subcutaneous solution infusion .continuous #90 mL blood-glucose sensor (Dexcom G7 #9 ea 12/20/24 04/10/25 Rx Sensor device) lubiprostone 8 mcg capsule 8 mcg PO BID #60 caps 01/15/2508/23 Rx (Amitiza) cephalexin 500 mg capsule 500 mg PO Q12 #14 CAPSULES 5 04/10/25 Rx estradiol 0.01% (0.1 mg/gram) 1 g vaginal 3XW #42.5 grams 04/10/25 Rx vaginal cream gabapentin 300 mg capsule 300 mg PO TID 04/10/25 04/10/25 Hi story hyoscyamine sulfate 0.125 mg tablet 0.125 mg PO BID-QID PRN dyspeps ia 04/10/25 History mirabegron 50 mg tablet,extended 50 mg PO QDAY 04/10/25 04/10/25 Hi story release 24 hr (Myrbetriq) mirabegron 50 mg tablet,extended 50 mg PO QDAY #90 tabs 04/10/25 Rx release 24 hr (Myrbetriq) Have you fallen in the past year?: No Nurse's Note: Bladder scan PVR 10cc. PFSH Medical History Adrenal adenoma Vaginal atrophy Mixed incontinence Nocturia Overactive bladder Cystocele, midline Insulin dependent diabetes mellitus Ambulates with cane History of renal disease GERD (gastroesophageal reflux disease) Obesity Presence of pessary Presence of insulin pump Gastroparesis Diabetes Wears glasses Wears dentures Depression Anxiety Marijuana use Thyroid disease Arthritis Fatty liver High cholesterol Restless legs Injury of head and neck Dietary restriction History of hiatal hernia Former smoker Leg cramps History of edema History of stress test Cardiology follow-up encounter Diarrhea Nausea vomiting Abdominal pain Diarrhea Nausea Acute right flank pain Acute hypokalemia Hyperlipidemia HTN (hypertension) Surgical History History of esophagogastroduodenoscopy (EGD) Hx of colonoscopy History of esophagogastroduodenoscopy (EGD) History of hysterectomy H/O foot surgery History of hip surgery History of rotator cuff surgery History of left knee surgery h/o left hand surgery Family History Mother Hypertension Lupus Glaucoma Arthritis Neuropathy Brother Diabetes Hypertension Hyperlipemia Other Heart disease Osteoporosis Social History household members: other details: daughter housing: house Smoking Status: Former smoker Tobacco: How many years used: 35 alcohol intake: never what type of physical activity do you participate in: none do you feel safe at home: Yes HPI HPI Urology Chief Complaint: 12month pessary cleaning and medication follow up Details: STEFANIE SIMMONS, is a 64 F. She is here for medication follow up. She has been taking Myrbetriq 50mg daily. She is not having si (more content not included)... Normal [facility] No Panel InformationOrdered By: Tiara Up on 04-10-2025 Urine Leukocytes Negatve [facility] Urine Non-Hemolyzed Blood Negative [facility] Urine Cultureon 04-08-2025 [facility] Presumptive E. coli [place] Count 80,000-100,000 Presumptive E. coli: REACTION Ampicillin Islt KENYA <=2 Ampicillin+Sulbac Islt KENYA <=2 S Cefepime Islt KENYA <=0.12 S cefTRIAXone Islt KENYA <=0.25 S Ciprofloxacin Islt KENYA <=0.06 S B-Lactamase Extended Susc Islt NEG Gentamicin Islt KENYA <=1 S levoFLOXacin Islt KENYA <=0.12 S Meropenem Islt KENYA <=0.25 S Nitrofurantoin Islt KENYA <=16 S Pip+Tazo Islt KENYA <=4 S TMP SMX Islt KENYA <=20 S Normal [facility] Comment on above: Performed By: #### M 100.2200 ####[facility] [address] [place], [address] Abdomen/Pelvis without Conto n 04-05-2025 Abdomen/Pelvis without Cont [facility] [address] [place] [address] Abdomen/Pelvis without Cont MR#: [id number] Acct: [id number] Name: STEFANIE SIMMONS Rep #: [id number] : 1960 F 64 From: Kenrick Long MD PCP: Dr. Zachary Toney MD Status: REG ER Study: Abdomen/Pelvis without Cont Date of Exam: 03/23 Exam# [id number] Ordering Dr: Kelli Campoverde PROCEDURE: ABDOMEN/PELVIS WITHOUT CONT 04/05/2025 REASON FOR EXAM: LEFT FLANK PAIN TECHNIQUE: ABDOMEN/PELVIS WITHOUT CONT Noncontrast technique limits evaluation of the abdominal and pelvic viscera. Coronal and Sagittal reconstruction series were provided. One or more dose reduction techniques were used (e.g., Automated exposure control, adjustment of the mA and/or kV according to patient size, use of iterative reconstruction technique). RADIATION DOSE SUMMARY: CTDlvol: 9 mGy DLP: 451 mGycm COMPARISON: 01/30/2023. FINDINGS: The peripheral soft tissues are unremarkable. The lung bases are clear. Degenerative changes of the spine. The liver is unremarkable. The gallbladder is unremarkable. The pancreas, spleen is unremarkable. Left adrenal 17 mm adenoma. The kidneys are unremarkable. No nephrolithiasis. No hydroureteronephrosis. Pessary device is present. Prior hysterectomy. Normal caliber large and small bowel. The appendix is not discretely visualized. No inflammatory changes. No suspicious lymphadenopathy. CT/Abdomen/Pelvis without Cont IMPRESSION: No acute abnormalities of the abdomen or pelvis. No nephrolithiasis or obstructive uropathy. Reading Location: [facility] CC: Dr. Zachary Toney MD; ETHAN Hernandez Machine Installer: Signed Normal [facility] Absolute lymphocyte countOrd ered By: ED PROVIDER on 04-05-2025 Lymphocytes Auto (Unsp spec) [#/Vol] 1.42 10*3/uL 0.83-4.51 [facility] Absolute neutrophil countOrd ered By: ED PROVIDER on 04-05-2025 Neutrophils (Bld) [#/Vol] 8.1 10*3/uL High 2.0-7.7 [facility] Anion gap in Serum or Plasma Ordered By: ED PROVIDER on 04-05-2025 Anion gap [Moles/Vol] 15 mmol/L 5-15 [facility] Automated lymphocyte count a s percentage of total leukocytesOrdered By: ED PROVIDER on 04-05-2025 Lymphocytes/100 WBC Auto (Unsp spec) 13.2 % Low 19-41 [facility] BUN/creatinine ratioOrdered By: ED PROVIDER on 04-05-2025 Urea nitrogen/Creatinine [Mass ratio] 20.1 mg/mg High 10-20 [facility] Basophil percentageOrdered B y: ED PROVIDER on 04-05-2025 Basophils/100 WBC (Bld) 0.4 % 0-1 [facility] Bilirubin Test strip Ql (U)O rdered By: ED PROVIDER on 04-05-2025 Bilirubin Ql (U) Negative Negative [facility] Bilirubin, totalOrdered By: ED PROVIDER on 04-05-2025 Bilirubin [Mass/Vol] 0.49 mg/dL 0.00-1.30 [facility] CBC W/Diff, Automatedon 08-0 Absolute Lymph 1.42 X10 3/uL Normal 0.83-4.51 [facility] Comment on above: Performed By: #### L 100.0100, L500.4050, L501.2450 ####[facility] [address] [place], [address] Absolute Neut 8.1 X10 3/uL High 2.0-7.7 [facility] Comment on above: Performed By: #### L 100.0100, L500.4050, L501.2450 ####[facility] [address] [place], [address] Basophils/100 WBC (Bld) 0.4 % Normal 0-1 [facility] Comment on above: Performed By: #### L 100.0100, L500.4050, L501.2450 ####[facility] [address] [place], [address] Eosinophils/100 WBC (Bld) 0.6 % Normal 0-5 [facility] Comment on above: Performed By: #### L 100.0100, L500.4050, L501.2450 ####[facility] [address] [place], [address] Erythrocyte distribution width (RBC) [Ratio] 14.6 % Normal 11.6-14.6 [facility] Comment on above: Performed By: #### L 100.0100, L500.4050, L501.2450 ####[facility] [address] [place], [address] Hematocrit (Bld) [Volume fraction] 38.2 % Normal 37-47 [facility] Comment on above: Performed By: #### L 100.0100, L500.4050, L501.2450 ####[facility] [address] [place], [address] Hemoglobin (Bld) [Mass/Vol] 12.5 g/dL Normal 12.0-15.0 [facility] Comment on above: Performed By: #### L 100.0100, L500.4050, L501.2450 ####[facility] [address] [place], [address] IG% 0.300 Normal 0.0-0.9 [facility] Comment on above: Result Comment: IG% - Immature Granulocytes (promyelocytes, myelocytes and metamyelocytes) > 1% indicates that a LEFT SHIFT is Present. Performed By: #### L 100.0100, L500.4050, L501.2450 ####[facility] [address] [place], [address] Lymphocytes/100 WBC (Bld) 13.2 % Low 19-41 [facility] Comment on above: Performed By: #### L 100.0100, L500.4050, L501.2450 ####[facility] [address] [place], [address] MCH (RBC) [Entitic mass] 26.4 pg Low 27.0-32.0 [facility] Comment on above: Performed By: #### L 100.0100, L500.4050, L501.2450 ####[facility] [address] [place], [address] MCHC (RBC) [Mass/Vol] 32.7 g/dL Normal 32-36 [facility] Comment on above: Performed By: #### L 100.0100, L500.4050, L501.2450 ####[facility] [address] [place], [address] MCV (RBC) [Entitic vol] 80.6 fL Low 81-99 [facility] Comment on above: Performed By: #### L 100.0100, L500.4050, L501.2450 ####[facility] [address] [place], [address] Monocytes/100 WBC (Bld) 10.1 % High 0-10 [facility] Comment on above: Performed By: #### L 100.0100, L500.4050, L501.2450 ####[facility] [address] [place], [address] Neutrophils/100 WBC (Bld) 75.4 % High 47-70 [facility] Comment on above: Performed By: #### L 100.0100, L500.4050, L501.2450 ####[facility] [address] [place], [address] Nucleated RBC (Bld) [#/Vol] 0 10*3/uL Normal 0-5 [facility] Comment on above: Performed By: #### L 100.0100, L500.4050, L501.2450 ####[facility] [address] [place], [address] Platelet mean volume (Bld) [Entitic vol] 9.9 fL Normal 6.2-12.0 [facility] Comment on above: Performed By: #### L 100.0100, L500.4050, L501.2450 ####[facility] [address] [place], [address] Platelets (Bld) [#/Vol] 344 10*3/uL Normal 150-450 [facility] Comment on above: Performed By: #### L 100.0100, L500.4050, L501.2450 ####[facility] [address] [place], [address] RBC (Bld) [#/Vol] 4.74 10*6/uL Normal 4.2-5.4 [facility] Comment on above: Performed By: #### L 100.0100, L500.4050, L501.2450 ####[facility] [address] [place], [address] RDW SD 42.6 fl Normal 35.1-43.9 [facility] Comment on above: Performed By: #### L 100.0100, L500.4050, L501.2450 ####[facility] [address] [place], [address] WBC (Bld) [#/Vol] 10.8 10*3/uL Normal 4.4-11.0 [facility] Comment on above: Performed By: #### L 100.0100, L500.4050, L501.2450 ####[facility] [address] [place], [address] Carbon dioxide, total [Moles /volume] in Central venous bloodOrdered By: ED PROVIDER on 04-05-2025 CO2 [Moles/Vol] 23.9 mmol/L 21.0-32.0 [facility] Chloride assayOrdered By: ED PROVIDER on 04-05-2025 Chloride [Moles/Vol] 97 mmol/L Low 98-108 [facility] Comprehensive Metabolic Prof ilon 04-05-2025 Albumin [Mass/Vol] 4.3 g/dL Normal 3.4-4.8 [facility] Comment on above: Performed By: #### L 100.0100, L500.4050, L501.2450 ####[facility] [address] [place], [address] Albumin/Globulin [Mass ratio] 1.4 {ratio} Normal 0.9-2.4 [facility] Comment on above: Performed By: #### L 100.0100, L500.4050, L501.2450 ####[facility] [address] [place], [address] ALK PHOS 83 U/L Normal 35-104 [facility] Comment on above: Performed By: #### L 100.0100, L500.4050, L501.2450 ####[facility] [address] [place], [address] ALT [Catalytic activity/Vol] 21 U/L Normal <=34 [facility] Comment on above: Performed By: #### L 100.0100, L500.4050, L501.2450 ####[facility] [address] [place], [address] AST [Catalytic activity/Vol] 22 U/L Normal <=31 [facility] Comment on above: Performed By: #### L 100.0100, L500.4050, L501.2450 ####[facility] [address] [place], [address] Bilirubin [Mass/Vol] 0.49 mg/dL Normal 0.00-1.30 [facility] Comment on above: Performed By: #### L 100.0100, L500.4050, L501.2450 ####[facility] [address] [place], [address] BUN/CRE 20.1 RATIO High 10-20 [facility] Comment on above: Performed By: #### L 100.0100, L500.4050, L501.2450 ####[facility] [address] [place], [address] Calcium [Mass/Vol] 9.7 mg/dL Normal 7.6-11.0 [facility] Comment on above: Performed By: #### L 100.0100, L500.4050, L501.2450 ####[facility] [address] [place], [address] Chloride [Moles/Vol] 97 mmol/L Low 98-108 [facility] Comment on above: Performed By: #### L 100.0100, L500.4050, L501.2450 ####[facility] [address] [place], [address] CO2 [Moles/Vol] 23.9 mmol/L Normal 21.0-32.0 [facility] Comment on above: Performed By: #### L 100.0100, L500.4050, L501.2450 ####[facility] [address] [place], [address] Creatinine [Mass/Vol] 0.98 mg/dL Normal 0.70-1.20 [facility] Comment on above: Performed By: #### L 100.0100, L500.4050, L501.2450 ####[facility] [address] [place], [address] ECRCL 57.06 ml/min Normal 50-250 [facility] Comment on above: Performed By: #### L 100.0100, L500.4050, L501.2450 ####[facility] [address] [place], [address] GAP 15 Normal 5-15 [facility] Comment on above: Performed By: #### L 100.0100, L500.4050, L501.2450 ####[facility] [address] [place], [address] GFR/1.73 sq M.predicted among non-blacks MDRD (S/P/Bld) [Vol rate/Area] 66 mL/min/{1.73_m2} Normal >60 [facility] Comment on above: Result Comment: mL/m in/1.73m2 CKD-EPI Creatinine Equation (2020) Performed By: #### L 100.0100, L500.4050, L501.2450 ####[facility] [address] [place], [address] Globulin (S) [Mass/Vol] 3.1 g/dL Normal 2.2-4.2 [facility] Comment on above: Performed By: #### L 100.0100, L500.4050, L501.2450 ####[facility] [address] [place], [address] Glucose [Mass/Vol] 125 mg/dL High 70-99 [facility] Comment on above: Performed By: #### L 100.0100, L500.4050, L501.2450 ####[facility] [address] [place], [address] Potassium [Moles/Vol] 3.4 mmol/L Normal 3.3-5.1 [facility] Comment on above: Performed By: #### L 100.0100, L500.4050, L501.2450 ####[facility] [address] [place], [address] Sodium [Moles/Vol] 135 mmol/L Normal 133-145 [facility] Comment on above: Performed By: #### L 100.0100, L500.4050, L501.2450 ####[facility] [address] [place], [address] T PROT 7.4 g/dL Normal 5.9-8.4 [facility] Comment on above: Performed By: #### L 100.0100, L500.4050, L501.2450 ####[facility] [address] [place], [address] Urea nitrogen [Mass/Vol] 20 mg/dL High 4-19 [facility] Comment on above: Performed By: #### L 100.0100, L500.4050, L501.2450 ####[facility] [address] [place], [address] Emergency Department Summary on 04-05-2025 Emergency Department Summary [facility] Medical Records Department [address] [place] [address] Emergency Department Summary 04/05/25 MR#: [id number] Acct: [id number] Name: STEFANIE SIMMONS Rep #: [id number] : 1960 64 From: James Brandon MD PCP: Dr. Zachary Toney MD Status:DEP ER Location: ED HPI History of Present Illness Chief Complaint: Flank Pain Narrative Narrative: 64-year-old female with past medical history of HTN, HLD, DM 1, CKD presents with few days of urinary frequency with burning and left flank pain. She denies fever, chills, nausea or vomiting. No history of kidney stones or pyelonephritis. [facility] Medical History (Updated 04/05/25 @ 19:40 by ETHAN Hernandez) Insulin dependent diabetes mellitus Ambulates with cane History of renal disease GERD (gastroesophageal reflux disease) Obesity Presence of pessary Presence of insulin pump Gastroparesis Diabetes Wears glasses Wears dentures Depression Anxiety Marijuana use Thyroid disease Arthritis Fatty liver High cholesterol Restless legs Injury of head and neck Dietary restriction History of hiatal hernia Former smoker Leg cramps History of edema History of stress test Cardiology follow-up encounter Diarrhea Nausea vomiting Abdominal pain Diarrhea Nausea Acute right flank pain Acute hypokalemia Hyperlipidemia HTN (hypertension) Home Medications ???Medication ???Instructions ???Recorded ???Last Taken ???Type lisinopril 20 1 tab PO DAILY bp 09/22/19 5 History mg-hydrochlorothiazide 12.5 mg tablet sertraline 100 mg tablet 100 mg PO DAILY depression 0 09/26/24 History pen needle, diabetic 32 gauge x #150 ea 08/01/21 Unknown Rx (BD Ultra-Fine Sheri Pen Needle) omeprazole 40 mg capsule,delayed 40 mg PO BID gerd 12/09/21 5 History release trazodone 100 mg tablet 100 mg PO QHS insomnia 12/09/21 History gabapentin 300 mg capsule 300 mg PO BID pain 12/17/22 History blood sugar diagnostic (OneTouch #100 ea 03/11/23 Unknown Rx Ultra Test strips) gabapentin 300 mg capsule 900 mg PO QHS 11/02/23 09/26/24 Hi story atorvastatin 40 mg tablet 40 mg PO QHS 05/03/24 09/26/24 His tory mirabegron 50 mg tablet,extended 50 mg PO QDAY 05/03/24 09/27/24 Hi story release 24 hr (Myrbetriq) blood sugar diagnostic (Accu-Chek #100 ea 05/24/24 Unknown Rx Guide test strips) estradiol 0.01% (0.1 mg/gram) 1 appful vaginal QWEEK 05/29/24 History vaginal cream cholecalciferol (vitamin D3) 100 2,000 unit PO BID 09/27/24 Unknown History mcg (4,000 unit) capsule naproxen 375 mg tablet 375 mg PO BID PRN pain #20 tabs Unknown Rx empagliflozin 25 mg tablet 25 mg PO QAM #30 tabs 11/15/24 Unk nown Rx (Jardiance) pen needle, diabetic 32 gauge x #100 ea 11/29/24 Unknown Rx 5/32 (BD Ultra-Fine Sheri Pen Needle) insulin lispro 100 unit/mL 100 unit continuous subcutaneous 0 12/06/24 Unknown Rx subcutaneous solution infusion .continuous #90 mL blood-glucose sensor (Dexcom G7 #9 ea 12/20/24 Unknown Rx Sensor device) lubiprostone 8 mcg capsule 8 mcg PO BID #60 caps 01/15/25 Unk nown Rx (Amitiza) hyoscyamine sulfate 0.125 mg tablet 0.125 mg PO BID-QID PRN dyspeps ia 02/08/25 Unknown Rx #60 tabs cephalexin 500 mg capsule 500 mg PO Q12 #14 CAPSULES 5 Unknown Rx Allergy/AdvReac Type Severity Reaction Status Date / Time simvastatin (From Zocor) Allergy Swelling Verified 04/05/25 15:18 Sulfa (Sulfonamide Allergy Swelling Verified 04/05/25 15:18 Antibiotics) Family History (Updated 03/27/25 @ 11:59 by Loreta Pino) Mother Hypertension Lupus Glaucoma Arthritis Neuropathy Brother Diabetes Hypertension Hyperlipemia Other Heart disease Osteoporosis Surgical History History of esophagogastroduodenoscopy (EGD) Hx of colonoscopy History of esophagogastroduodenoscopy (EGD) History of hysterectomy H/O foot surgery History of hip surgery History of rotator cuff surgery History of left knee surgery h/o left hand surgery Social History household members: other details: daughter housing: house Smoking Status: Former smoker Tobacco: How many years used: 35 alcohol intake: never what type of physical activity do you participate in: none do you feel safe at home: Yes ROS ROS ED ROS Narrative Constitutional: Negative for fever, chills, malaise. CVS: Negative for chest pain. Respiratory: Negative for shortness of breath. GI: Negative for abdominal pain, nausea, vomiting, diarrhea, melena, hematochezia. : Positive for dysuria. EXAM Physical Exam Narrative Exam Narrative (more content not included)... Normal [facility] Eosinophil percentageOrdered By: ED PROVIDER on 04-05-2025 Eosinophils/100 WBC (Bld) 0.6 % 0-5 [facility] Erythrocyte distribution wid th ratioOrdered By: ED PROVIDER on 04-05-2025 Erythrocyte distribution width (RBC) [Ratio] 14.6 % 11.6-14.6 [facility] Erythrocyte distribution wid th standard deviationOrdered By: ED PROVIDER on 04-05-2025 Erythrocyte distribution width (RBC) [Ratio] 42.6 fl 35.1-43.9 [facility] Glomerular filtration rate ( GFR) estimation/1.73 sq m using serum, plasma, or whole bOrdered By: ED PROVIDER on 04-05-2025 GFR/1.73 sq M.predicted among non-blacks MDRD (S/P/Bld) [Vol rate/Area] 66 mL/min/{1.73_m2} >60 [facility] Comment on above: mL/min/1.73m2 CKD-EP I Creatinine Equation (2020) Hematocrit Auto (Bld) [Volum e fraction]Ordered By: ED PROVIDER on 04-05-2025 Hematocrit (Bld) [Volume fraction] 38.2 % 37-47 [facility] Hemoglobin measurementOrdere d By: ED PROVIDER on 04-05-2025 Hemoglobin (Bld) [Mass/Vol] 12.5 g/dL 12.0-15.0 [facility] Immature granulocytes/100 WB C Auto (Bld)Ordered By: ED PROVIDER on 04-05-2025 Immature granulocytes/100 WBC (Bld) 0.300 % 0.0-0.9 [facility] Comment on above: IG% - Immature Granu locytes (promyelocytes, myelocytes and metamyelocytes) > 1% indicates that a LEFT SHIFT is Present. Ketones Test strip Ql (U)Ord ered By: ED PROVIDER on 04-05-2025 Ketones Ql (U) Negative Negative [facility] Laboratory - Chemistry and C hemistry - challengeOrdered By: ED PROVIDER on 04-05-2025 AST [Catalytic activity/Vol] 22 U/L <32 [facility] Lipaseon 04-05-2025 Lipase [Catalytic activity/Vol] 16 U/L Normal 13-75 [facility] Comment on above: Result Comment: Frieda se note: LIPASE revised reference range effective 22. New Lipase methodology. Expected to produce lower values than the previous assay method. NEW Reference Range: 13 - 75 U/L Performed By: #### L 100.0100, L500.4050, L501.2450 ####[facility] [address] [place], [place], [id number] Lipase measurementOrdered By : ED PROVIDER on 04-05-2025 Lipase [Catalytic activity/Vol] 16 U/L 13-75 [facility] Comment on above: Please note:LIPASE r evised reference range effective 22. New Lipase methodology. Expected to produce lower values than the previous assay method. NEW Reference Range: 13 - 75 U/L MCV (mean corpuscular volume ) determinationOrdered By: ED PROVIDER on 04-05-2025 MCV (RBC) [Entitic vol] 80.6 fL Low 81-99 [facility] Mean corpuscular hemoglobin (MCH) determinationOrdered By: ED PROVIDER on 04-05-2025 MCH (RBC) [Entitic mass] 26.4 pg Low 27.0-32.0 [facility] Mean corpuscular hemoglobin concentration (MCHC) determinationOrdered By: ED PROVIDER on 04-05-2025 MCHC (RBC) [Mass/Vol] 32.7 g/dL 32-36 [facility] Mean platelet volume determi nationOrdered By: ED PROVIDER on 04-05-2025 Platelet mean volume (Bld) [Entitic vol] 9.9 fL 6.2-12.0 [facility] Microscopic analysis of urin e for red blood cells (RBC)Ordered By: James Brandon on 04-05-2025 Microscopic analysis of urine for red blood cells (RBC) 0 SEEN /hpf 0-5 [facility] Monocyte percentageOrdered B y: ED PROVIDER on 04-05-2025 Monocytes/100 WBC (Bld) 10.1 % High 0-10 [facility] Mucus LM Ql (Urine sed)Order ed By: James Brandon on 04-05-2025 Mucus Ql (Urine sed) 0 SEEN /hpf [facility] Neutrophil percentageOrdered By: ED PROVIDER on 04-05-2025 Neutrophils/100 WBC (Bld) 75.4 % High 47-70 [facility] Nitrite Test strip Ql (U)Ord ered By: ED PROVIDER on 04-05-2025 Nitrite Ql (U) Positive High Negative [facility] Nucleated red blood cell per centageOrdered By: ED PROVIDER on 04-05-2025 Nucleated RBC/100 WBC (Bld) [Ratio] 0 % 0-5 [facility] Platelet countOrdered By: ED PROVIDER on 04-05-2025 Platelets (Bld) [#/Vol] 344 10*3/uL 150-450 [facility] Potassium measurement (mass/ volume)Ordered By: ED PROVIDER on 04-05-2025 Potassium (Unsp spec) [Mass/Vol] 3.4 mmol/L 3.3-5.1 [facility] Protein Test strip Ql (U)Ord ered By: ED PROVIDER on 04-05-2025 Protein Ql (U) 15 mg/dl High Negative [facility] RBC Auto (Bld) [#/Vol]Ordere d By: ED PROVIDER on 04-05-2025 RBC (Bld) [#/Vol] 4.74 10*6/uL 4.2-5.4 [facility] Serum creatinine measurement (mass/volume)Ordered By: ED PROVIDER on 04-05-2025 Creatinine [Mass/Vol] 0.98 mg/dL 0.70-1.20 [facility] Serum globulin measurementOr dered By: ED PROVIDER on 04-05-2025 Globulin (S) [Mass/Vol] 3.1 g/dL 2.2-4.2 [facility] Serum glucose measurement (m ass/volume)Ordered By: ED PROVIDER on 04-05-2025 Glucose [Mass/Vol] 125 mg/dL High 70-99 [facility] Serum or plasma alanine oquendo otransferase (ALT) measurementOrdered By: ED PROVIDER on 04-05-2025 ALT [Catalytic activity/Vol] 21 U/L <35 [facility] Serum or plasma albumin nelia urement (mass/volume)Ordered By: ED PROVIDER on 04-05-2025 Albumin [Mass/Vol] 4.3 g/dL 3.4-4.8 [facility] Serum or plasma albumin/glob ulin mass ratioOrdered By: ED PROVIDER on 04-05-2025 Albumin/Globulin [Mass ratio] 1.4 {ratio} 0.9-2.4 [facility] Serum or plasma alkaline sohan sphatase measurementOrdered By: ED PROVIDER on 04-05-2025 ALP [Catalytic activity/Vol] 83 U/L 35-104 [facility] Serum or plasma calcium nelia urement (mass/volume)Ordered By: ED PROVIDER on 04-05-2025 Calcium [Mass/Vol] 9.7 mg/dL 7.6-11.0 [facility] Serum or plasma urea nitroge n measurement (mass/volume)Ordered By: ED PROVIDER on 04-05-2025 Urea nitrogen [Mass/Vol] 20 mg/dL High 4-19 [facility] Sodium levelOrdered By: ANA PRESSLEY on 04-05-2025 Sodium [Moles/Vol] 135 mmol/L 133-145 [facility] Squamous epithelial cells de tection in urine sediment by light microscopyOrdered By: James Brandon on 04-05-2025 Epithelial cells.squamous LM Ql (Urine sed) 0-5 SEEN /hpf 5-10 [facility] Total proteinOrdered By: ED PROVIDER on 04-05-2025 Protein [Mass/Vol] 7.4 g/dL 5.9-8.4 [facility] Urinalysis, Completeon 04-05 BACTERIA 2+ /hpf Normal None Seen [facility] Comment on above: Order Comment: CLEAN CATCH Performed By: #### L 400.0001 ####[facility] [address] [place], [address] EPI,SQUAMOUS 0-5 SEEN Normal 5-10 [facility] Comment on above: Order Comment: CLEAN CATCH Performed By: #### L 400.0001 ####[facility] [address] [place], [address] WBC 0-5 SEEN Normal 0-5 [facility] Comment on above: Order Comment: CLEAN CATCH Performed By: #### L 400.0001 ####[facility] [address] [place], [address] Mucus Ql (Urine sed) 0 SEEN Normal [facility] Comment on above: Order Comment: CLEAN CATCH Performed By: #### L 400.0001 ####[facility] [address] [place], [address] RBC 0 SEEN Normal 0-5 [facility] Comment on above: Order Comment: CLEAN CATCH Performed By: #### L 400.0001 ####[facility] [address] [place], [address] Urine clarityOrdered By: ED PROVIDER on 04-05-2025 Clarity (U) Sl Cldy Clear [facility] Urine color determinationOrd ered By: ED PROVIDER on 04-05-2025 Color (U) Yellow Yellow [facility] Urine cultureOrdered By: Nuha Campoverde on 04-05-2025 Bacteria identified Cx Nom (U) Presumptive E. coli Abnormal [facility] Urine glucose detectionOrder ed By: ED PROVIDER on 04-05-2025 Glucose Ql (U) 1000 mg/dl High Normal [facility] Urine leukocyte esterase det ection by dipstickOrdered By: ED PROVIDER on 04-05-2025 Leukocyte esterase Test strip Ql (U) 25 /ul High Negative [facility] Urine pHOrdered By: ED PROVI TAMMY on 04-05-2025 pH (U) 6.0 [pH] 5.0 - 8.0 [facility] Urine sediment bacteria coun t by microscopy (number/high power field)Ordered By: James Brandon on 04-05-2025 Bacteria LM.HPF (Urine sed) [#/Area] 2 /[HPF] None Seen [facility] Urine specific gravity measu rementOrdered By: ED PROVIDER on 04-05-2025 Specific gravity (U) [Rel density] 1.015 1.002-1.030 [facility] Urine urobilinogen measureme ntOrdered By: ED PROVIDER on 04-05-2025 Urobilinogen Ql (U) Normal mg/dl Normal [facility] White blood cell (WBC) count Ordered By: ED PROVIDER on 04-05-2025 WBC (Bld) [#/Vol] 10.8 10*3/uL 4.4-11.0 [facility] White blood cell countOrdere d By: James Brandon on 04-05-2025 White blood cell count 0-5 SEEN /hpf 0-5 [facility] ALLERGEN SKIN TEST-INHALANT 40on 03-15-2025 INHALANT 40 PERCUTAN EOUS & INTRADERMAL TESTING/ Mean Wheal & Flare Diameter (mm) Patient has been identified by name and date of : Yes . Skin test applied by : Halina Cevallos RN Interpreted By: Javier Holt D.O. * Clinical significant reactions are regarded as a wheal diameter greater than or equal to 3 mm with a flare diameter greater or equal to 6mm. ALLERGENS Time applied: 1020 Time read: 1035 1. Negative Control: 50%Glycerin/50%Cocas P: W = 0 mm F = 3 mm 2. Cat Hair 10,000 BAU/ml P: W = 0 mm F = 3 mm 3. UF Dog 1:650 P: W = 0 mm F = 3 mm 4. Cockroach Mix 1:20 P: W = 0 mm F = 3 mm 5. Mite Df 10,000 AU/ml P: W = 0 mm F = 3 mm 6. Mite Dp 10,000AU/ml P: W = 0 mm F = 3 mm 7. Alternaria Alternata 1:20 P: W = 0 mm F = 3 mm 8. Aspergillus Fumigatus 1:20 P: W = 0 mm F = 3 mm 9. Cladosporium sphearospermum 1:20 P: W = 0 mm F = 3 mm 10. Epicoccum Nigrum 1:10 P: W = 0 mm F = 3 mm 11. Fusarium Solani 1:40 P: W = 0 mm F = 3 mm 12. Bipolaris Sorokiniana 1:20 P: W = 0 mm F = 3 mm 13. Penicillium Mix 1:20 P: W = 0 mm F = 3 mm 14. Mark, White 1:20 P: W = 0 mm F = 3 mm 15. Beech, Uruguayan 1:20 P: W = 0 mm F = 3 mm 16. Birch Mix 1:20 P: W = 0 mm F = 3 mm 17. Maple Mix 1:20 P: W = 0 mm F = 3 mm 18. [place] ,Eastern 1:20 P: W = 0 mm F = 3 mm 19. [place], Shagbark 1:20 P: W = 0 mm F = 3 mm 20. [place] Tree, Red 1:20 P: W = 0 mm F = 3 mm 21. Mingus, Red 1:20 P: W = 0 mm F = 3 mm 22. [place], Uruguayan/Eastern 1:20 P: W = 0 mm F = 3 mm 23. Jenners Pollen, Black 1:20 P: W = 0 mm F = 3 mm 24. [place], Black 1:20 P: W = 0 mm F = 3 mm 25. [place] Grass 10,000 BAU/ml P : W = 0 mm F = 3 mm 26. [place], /January 100,000 BAU/ml P: W = 0 mm F = 3 mm 27. Fescue, Bigfork 100,000 BAU/ml P: W = 0 mm F = 3 mm 28. Michele Grass 1:20 P: W = 0 mm F = 3 mm 29. Orchard Grass 100,000 BAU/ml P: W = 0 mm F = 3 mm 30. Perennial Rogers, 100,000 BAU/ml P: W = 0 mm F = 3 mm 31. [place] 100,000 BAU/ml P: W = 0 mm F = 3 mm 32. Cocklebur 1:20 P: W = 0 mm F = 3 mm 33. [place], sheep 1:20 P: W = 0 mm F = 3 mm 34. Plantain, Mauritian 1:20 P: W = 0 mm F = 3 mm 35. Lambs Quarters 1:20 P: W = 0 mm F = 3 mm 36. Wood Elder, Burweed 1:20 P: W = 0 mm F = 3 mm 37. Mugwort, Common 1:20 P: W = 0 mm F = 3 mm 38. Pigweed, Rough 1:20 P: W = 0 mm F = 3 mm 39. Ragweed, Mix 1:20 P: W = 0 mm F = 3 mm 40. HISTAMINE, positive control(Histamine base 6mg/ml) P: W = 6 mm F = 30 mm [facility] CNOVon 03-15-2025 CNOV Office Visit (ALAPW) STEFANIE SIMMONS ([id number]) 1960 F T Date Time Provider Department 03/15/25 10:00 AM JAVIER HOLT During your visit today, we recorded the following information about you: Pulse Respiration Blood pressure Weight 68/minute 16/minute 98/65 75.8 kg Mateo Ford LPN 03/15/2025 11:52 AM Signed Patients reports having a chronic cough for a couple years. It is at its worst in the morning. Patient also reports that she has a lot of sinus congestion and drainage. Reports that she has this year round and it is not worse during any certain time. Patient was prescribed Manjula but did not take it. Patient did take Claritin a couple of years ago and that did help some. Javier Holt DO 03/15/2025 11:52 AM Signed Allergy and Immunology 03/15/2025 PRIMARY CARE PHYSICIAN: Zachary Toney MD REFERRING PROVIDER: Ulises Sears MD Consultation requested for an allergy/immunology evaluation. My final impression and recommendations will be communicated back to the requesting physician by way of shared medical record, fax, or [place] mail. CHIEF COMPLAINT: Stefanie Simmons is a 64-year-old female with a history of chronic cough, presenting for evaluation of persistent cough and nasal congestion. HISTORY OF PRESENT ILLNESS: Stefanie reports a chronic cough persisting for several years, accompanied by nasal congestion and significant drainage, particularly in the mornings. The cough is described as wet and occurs throughout the day, with mornings being the worst. She notes that the cough often leads to emesis, which appears foamy. The cough does not interrupt her sleep but is present upon waking. She experiences a tickle in her throat before coughing somtimes, which resolves after coughing. Occasionally, she feels as though her airway is more constricted than usual when she applies pressure to her neck. Stefanie has not been taking any medications for these symptoms recently. She previously used Claritin, which was effective, but discontinued it years ago. She attempted to obtain Manjula, as recommended, but it was not covered by her insurance. She was also prescribed Nasonex but has not started it, waiting for this appointment. She has not used Flonase due to its scent. Stefanie reports that her symptoms are present year-round, with no specific time of year being worse. She notes that her nasal symptoms are slightly worse in the spring. She experiences tenderness and soreness at the corner of her nose due to dripping. The nasal drip is not constant but worsens when exposed to freshly cut grass, cold air, dry hot air, and sometimes when eating. She has a mini chihuahua that sheds a lot and sleeps in her bedroom. She frequently visits her daughter, who has cats. She denies a history of asthma, eczema, or sinus infections. She has not undergone allergy testing before. She quit smoking tobacco 17 years ago and denies any current use. Stefanie also reports difficulty with speech, stating that she sometimes struggles to pronounce simple words she has always known. She cannot recall specific words but notes that this occurs occasionally. Sometimes excessive coughing or laughing can trigger her cough. She has a history of acid reflux and takes medication for it. She tries to avoid eating after 1800 to prevent symptoms and sleeps at an angle. Despite these measures, she sometimes wakes up at night with regurgitation and a sensation of her throat closing, which she finds frightening as she lives alone. She notes that her reflux symptoms are worse if she misses a dose of her medication or depending on what and when she eats. Stefanie uses marijuana for joint pain relief but has been advised to switch to gummies to reduce throat irritation. She has not made this transition yet due to financial constraints. [facility]ER[facility] HISTORY Question 03/15/2025 9:42 AM EDT - Filed by Mateo Ford LPN Do you have or have you ever been diagnosed with allergic rhinitis? No Have you ever been skin tested for allergies? No Do you have asthma? No Do you have or have you ever been diagnosed with eczema or atopic dermatitis? No Do you get frequent sinus infections? No Do you have nasal polyps? No Do you have or have you ever been diagnosed with urticaria / hives? No Do you have or have you ever been diagnosed with angioedema? No Do you have or have you ever been diagnosed with food allergy? No Do you have or have you ever been diagnosed with stinging insect allergy (bee, wasp, yellow jacket, hornet)? No Are you allergic to Penicillin antibiotics? No [facility] ENVIROMENTAL EXPOSURES Question 03/15/2025 9:43 AM EDT - Filed by Mateo Ford LPN Aeroallergens Exposure What pet(s) you have at home? Dog Is there evidence of a mouse infestation in your home? No Is there evidence (more content not included)... Normal [facility] CNOVon 02-12-2025 CNOV Office Visit (PULMAV ) STEFANIE SIMMONS ([id number]) 1960 F CHT Date Time Provider Department 02/12/25 1:45 PM ULISES SEARS PULKEVIN During your visit today, we recorded the following information about you: Pulse Blood pressure Weight 59/minute 101/66 77.6 kg Alayna Leal PA-C 02/12/2025 5:18 PM Attested Attestation signed by Ulises Sears MD at 02/12/2025 5:18 PM ATTENDING NOTE: I have reviewed the history and physical obtained and documented by the resident/fellow/TOMASZ, and personally interviewed, examined and reviewed records/data/labs/radiograp hs. I personally participated in the velez components and I agree with the history physical examination, data assessment, diagnosis and plan as outlined except where differences are stated below. I have discussed the case and management of the patient's care. Briefly, my assessment is summarized as follows: Assessment/Plan: - chronic cough - likely related to post nasal drip, possible allergies, poorly controlled GERD - post nasal drip - seems to be a big contributing factor, worse in them morning. Advised to trial nasonex, proper technique discussed. Did not tolerate Flonase in the past. Allergy referral placed as well for skin testing near her home in [place] - GERD - poorly controlled, recommend continued follow up with her GI team as it may be contributing to cough as well - lung nodules - quit more than 15 years ago, so [facility] dismissed her from practice as LDCT will not be covered, but nodules are small and stable at least 2 years, likely benign. - former smoker - current THC inhalation See resident/fellow/TOMASZ's note for further details. Follow up at [place], closer to home. Ulises Sears MD Res[facility] [place] [facility] Pulmonary and Critical Care 02/12/2025 5:06 PM I spent a total of 55 minutes on the date of the service which included preparing to see the patient, [id number] patient care, completing clinical documentation, obtaining and/or reviewing separately obtained history, ordering medications, tests, or procedures, communicating with other HCPs (not separately reported), independently interpreting results (not separately reported), communicating results to the patient/family/caregiver, and care coordination (not separately reported). NEW PATIENT OFFICE VISIT Stefanie Simmons's PCP is Zachary Toney MD. My final recommendations will be communicated back to the requesting physician by way of shared Medical record or letter to requesting physician via US mail. Referred by: Maine Marvin APRN CC: new patient, chronic cough HPI: Ms. Simmons is a 64 year old female with PMH of HTN, T2DM, RBBB, DEBBIE, thyroid nodules, gastroparesis, significant GERD, anxiety, b/l carotid artery stenosis, h/o seizures who presents for evaluation of new patient for chronic cough She reports her cough has been present for about the past 5 years. Denies acute worsening but now more tired of ongoing symptoms. She describes it as productive with usually clear though sometimes cloud phlegm. She endorses associated chest heaviness, throat wheeze, +rhinitis, +PND, +sinus headaches. Denies SOB and hemoptysis. She reports she is sometimes with emesis due to persistent cough. Her cough is worse in the morning when she feels like she needs to clear out her sinuses and lungs but that it is improved though persistent throughout the rest of the day. She endorses seasonal allergies, significant GERD symptoms, and DEBBIE. She reports her cough is not worse at certain times of the year though she does think she has seasonal allergies to pollens. For her allergies she has tried Manjula and Claritin. This trial was before the onset of her cough. She does not recall if they improved her allergies but reports stopping them once they became cost prohibitive. She has further tried Flonase for a 1 month trial about 2 years ago but reports discontinuation due to the drying effects of the spray causing a raw nose. She thinks the Flonase helped her allergies but not necessarily her cough. She reports she has never seen an [employer] or an ENT. For her GERD symptoms, she reports faithful omeprazole 40 mg BID use with significant ongoing acid reflux symptoms at night. She reports she is working with a local GI specialist for this and for a described sensation of solids and liquids becoming stuck in her throat with eating. She reports sleeping with the head of her bed elevated. She denies known aspiration with PO intake. She reports prior EGD in October 2023. Per chart review from OSH this EGD was with findings of a medium- sized hiatal hernia, erythematous mucosa of the gastric body and duodeno (more content not included)... Normal [facility] LUNG DIFFUSION CAPACITY (WILFRED O)on 02-12-2025 LUNG DIFFUSION CAPACITY (DLCO) [facility] [address] [place] [address] Test Date: 2025-02-12 Pat Name: STEFANIE SIMMONS Department: Room: Gender: Female Statistical Typist: : 1960 Requested By: Order Number: [id number] Reading MD: Mohan Rothman MD Interpretive Statements Current ATS/ERS acceptability and repeatability standards for spirometry met. Start of test and EOFE criteria met. Current ATS/ERS acceptability and repeatability standards for DLCO met with 2 acceptable maneuvers. Current ATS/ERS acceptability and repeatability standards for lung volumes met. //LW IMPRESSION: Spirometry is normal. Lung volumes are normal. The diffusion capacity (uncorrected for hemoglobin) is normal. Electronically Signed On 02-13-2025 14:01:02 EDT by Mohan Rothman MD ID: [id number] Name: STEFANIE SIMMONS Race: White Ht: 62.80 in Wt: 168.21 lbs Age: 64 Gender: Female : 1960 Dx: Chronic cough_ Smoking Hx: Non-smoker Doctor: MARISA BULL Test Date: 02/12/2025 Site: Tech: Bety Rae PRE-BRONCH POST-BRONCH Nelia LLN Pred ULN %Pred ZScore Nelia %Pred %Chg ZScore SPIROMETRY FVC 3.61 2.00 2.78 3.57 130 1.72 FEV1 2.70 1.58 2.21 2.81 122 1.33 FEV1/FVC 0.75 0.68 0.80 0.90 93 -0.73 FEFMax 5.79 4.31 5.96 7.61 97 -0.17 FEF50 2.67 1.57 3.18 4.79 83 -0.53 FIF50 4.63 FEF50/FIF50 0.58 90-100 FIVC 3.39 XTY14-69 2.15 1.05 2.10 3.54 102 0.07 ExpiredTime 7.00 TimeToFEFMax 0.07 THANH 0.07 VolExtrap% 2 LUNG VOLUMES FRC(Pleth) 3.23 1.85 2.60 3.54 124 1.15 ERV 1.28 0.93 138 RV(Pleth) 1.95 1.04 1.71 2.57 114 0.51 SVC 3.71 2.00 2.78 3.57 133 1.92 IC 2.40 1.85 129 TLC(Pleth) 5.63 3.92 4.87 5.93 115 1.20 RV/TLC(Pleth) 35 24 35 47 99 0.00 LUNG DIFFUSION DLCOunc 22.13 14.46 18.95 24.42 116 0.99 DLCOStdPB 21.90 14.46 18.95 24.42 115 0.93 VA 5.04 3.60 4.46 5.42 112 1.02 Kco 4.35 3.27 4.25 5.36 102 0.15 Comments: Current ATS/ERS acceptability and repeatability standards for spirometry met. Start of test and EOFE criteria met. Current ATS/ERS acceptability and repeatability standards for DLCO met with 2 acceptable maneuvers. Current ATS/ERS acceptability and repeatability standards for lung volumes met. //LW Normal [facility] LUNG VOLUMESon 02-12-2025 LUNG VOLUMES [facility] enter [address] [place] [address] Test Date: 2025-02-12 Pat Name: STEFANIE SIMMONS Department: Room: Gender: Female Statistical Typist: : 1960 Requested By: Order Number: [id number] Reading MD: Mohan Rothman MD Interpretive Statements Current ATS/ERS acceptability and repeatability standards for spirometry met. Start of test and EOFE criteria met. Current ATS/ERS acceptability and repeatability standards for DLCO met with 2 acceptable maneuvers. Current ATS/ERS acceptability and repeatability standards for lung volumes met. //LW IMPRESSION: Spirometry is normal. Lung volumes are normal. The diffusion capacity (uncorrected for hemoglobin) is normal. Electronically Signed On 02-13-2025 14:01:02 EDT by Mohan Rothman MD ID: [id number] Name: STEFANIE SIMMONS Race: White Ht: 62.80 in Wt: 168.21 lbs Age: 64 Gender: Female : 1960 Dx: Chronic cough_ Smoking Hx: Non-smoker Doctor: MARISA BULL Test Date: 02/12/2025 Site: Tech: Btey Rae PRE-BRONCH POST-BRONCH Nelia LLN Pred ULN %Pred ZScore Nelia %Pred %Chg ZScore SPIROMETRY FVC 3.61 2.00 2.78 3.57 130 1.72 FEV1 2.70 1.58 2.21 2.81 122 1.33 FEV1/FVC 0.75 0.68 0.80 0.90 93 -0.73 FEFMax 5.79 4.31 5.96 7.61 97 -0.17 FEF50 2.67 1.57 3.18 4.79 83 -0.53 FIF50 4.63 FEF50/FIF50 0.58 90-100 FIVC 3.39 OOQ30-90 2.15 1.05 2.10 3.54 102 0.07 ExpiredTime 7.00 TimeToFEFMax 0.07 THANH 0.07 VolExtrap% 2 LUNG VOLUMES FRC(Pleth) 3.23 1.85 2.60 3.54 124 1.15 ERV 1.28 0.93 138 RV(Pleth) 1.95 1.04 1.71 2.57 114 0.51 SVC 3.71 2.00 2.78 3.57 133 1.92 IC 2.40 1.85 129 TLC(Pleth) 5.63 3.92 4.87 5.93 115 1.20 RV/TLC(Pleth) 35 24 35 47 99 0.00 LUNG DIFFUSION DLCOunc 22.13 14.46 18.95 24.42 116 0.99 DLCOStdPB 21.90 14.46 18.95 24.42 115 0.93 VA 5.04 3.60 4.46 5.42 112 1.02 Kco 4.35 3.27 4.25 5.36 102 0.15 Comments: Current ATS/ERS acceptability and repeatability standards for spirometry met. Start of test and EOFE criteria met. Current ATS/ERS acceptability and repeatability standards for DLCO met with 2 acceptable maneuvers. Current ATS/ERS acceptability and repeatability standards for lung volumes met. //LW Normal [facility] NITRIC OXIDE, EXHALEDon - Bety RaeSTORM 02/12/2025 1:28 PM RESPIRATORY THERAPY ORAL EXHALED NITRIC OXIDE SERVICE DATE: 02/12/2025 SERVICE TIME: 1:28 PM Oral Exhaled Nitric Oxide measurement: 12.0 (ppb) Normal: Adult <25 ppb, pediatric (<12 years) <20 ppb High Normal / Increased: Adult 25-50 ppb, pediatric (<12 years) 20-35 ppb Moderately raised exhaled Nitric Oxide may indicate underlying inflammation, but note that: Cold and influenza can raise exhaled Nitric Oxide and some patients have higher baseline exhaled Nitric Oxide levels than others. High: Adult >50 ppb, pediatric (<12 years) >35 ppb Indicative of ongoing eosinophilic inflammation. Symptomatic patient likely to respond to steroids. Possible causes (if already on steroids): Poor compliance, recent allergen exposure, steroid dose inadequate, and steroid resistance. Note that not all patients with high exhaled nitric oxide levels display symptoms. Oral Exhaled Nitric Oxide measurement (Previous Encounters) Test Date Oral Exhaled Nitric Oxide (ppb) 02/12/2025 12.0 NAME: Bety Rae RRT PATIENT NAME: Stefanie Simmons DATE: February 12, 2025 TIME: 1:28 PM [facility] SPIROMETRY WITH DILATOR IF O BSTRUCTEDon 02-12-2025 SPIROMETRY WITH DILATOR IF OBSTRUCTED [facility] [address] 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 Start of test and EOFE criteria met. Current ATS/ERS acceptability and repeatability standards for DLCO met with 2 acceptable maneuvers. Current ATS/ERS acceptability and repeatability standards for lung volumes met. //LW IMPRESSION: Spirometry is normal. Lung volumes are normal. The diffusion capacity (uncorrected for hemoglobin) is normal. Electronically Signed On 02-13-2025 14:01:02 EDT by Mohan Rothman MD ID: [id number] Name: STEFANIE SIMMONS Race: White Ht: 62.80 in Wt: 168.21 lbs Age: 64 Gender: Female : 1960 Dx: Chronic cough_ Smoking Hx: Non-smoker Doctor: MARISA BULL Test Date: 02/12/2025 Site: Tech: Bety Rae PRE-BRONCH POST-BRONCH Nelia LLN Pred ULN %Pred ZScore Nelia %Pred %Chg ZScore SPIROMETRY FVC 3.61 2.00 2.78 3.57 130 1.72 FEV1 2.70 1.58 2.21 2.81 122 1.33 FEV1/FVC 0.75 0.68 0.80 0.90 93 -0.73 FEFMax 5.79 4.31 5.96 7.61 97 -0.17 FEF50 2.67 1.57 3.18 4.79 83 -0.53 FIF50 4.63 FEF50/FIF50 0.58 90-100 FIVC 3.39 IUP77-81 2.15 1.05 2.10 3.54 102 0.07 ExpiredTime 7.00 TimeToFEFMax 0.07 THANH 0.07 VolExtrap% 2 LUNG VOLUMES FRC(Pleth) 3.23 1.85 2.60 3.54 124 1.15 ERV 1.28 0.93 138 RV(Pleth) 1.95 1.04 1.71 2.57 114 0.51 SVC 3.71 2.00 2.78 3.57 133 1.92 IC 2.40 1.85 129 TLC(Pleth) 5.63 3.92 4.87 5.93 115 1.20 RV/TLC(Pleth) 35 24 35 47 99 0.00 LUNG DIFFUSION DLCOunc 22.13 14.46 18.95 24.42 116 0.99 DLCOStdPB 21.90 14.46 18.95 24.42 115 0.93 VA 5.04 3.60 4.46 5.42 112 1.02 Kco 4.35 3.27 4.25 5.36 102 0.15 Comments: Current ATS/ERS acceptability and repeatability standards for spirometry met. Start of test and EOFE criteria met. Current ATS/ERS acceptability and repeatability standards for DLCO met with 2 acceptable maneuvers. Current ATS/ERS acceptability and repeatability standards for lung volumes met. //LW FVC_PRE (L) : 3.61 L FVC_PRED (L) : 2.78 L FVC_LLN (L) : 2.00 L FVC_ULN (L) : 3.57 L FEV1_PRE (L) : 2.70 L FEV1_PRED (L) : 2.21 L FEV1_LLN (L) : 1.58 L FEV1_ULN (L) : 2.81 L FEV1/FVC_PRE (%) : 75 % FEV1/FVC_PRED (%) : 80 % FEV1/FVC_LLN (%) : 68 % MMT30_SRC (L/S) : 4.56 L/S JTS47_TBX (L/S) : 0.62 L/S LNT85_MCMO (L/S) : 0.57 L/S UKC37_PTV (L/S) : 0.22 L/S NYZ37_QQM (L/S) : 1.37 L/S XNK60-29%_PRE (L/S) : 2.15 L/S MAY18-14%_PRED (L/S) : 2.10 L/S CET47-11%_LLN (L/S) : 1.05 L/S PEF_PRE (L/S) : 5.79 L/S PEFMAX_LLN (L/S) : 4.31 L/S PEFMAX_ULN (L/S) : 7.61 L/S VC BOX (L) : 3.71 L SVC_PRED (L) : 2.78 L/S SVC_LLN (L) : 2.00 L/S SVC_ULN (L/S) : 3.57 L/S IC BOX (L) : 2.40 L IC_PRED (L) : 1.85 L/S ERV BOX (L) : 1.28 L ERV_PREDICTED (L) : 0.93 L/S DLCO (ML/MIN/MMHG) : 22.13 ml/min/mmHg DLCO_PRED (ML/MIN/MMHG) : 18.95 ml/min/mmHg DLCO_LLN(ML/MIN/MMHG) : 14.46 ml/min/mmHg DLCO_ULN (ML/MIN/MMHG) : 24.42 ml/min/mmHg FET_PRE (S) : 7.00 S FRC BOX (L) : 3.23 L RV BOX (L) : 1.95 L RV_PLETH_PRED (L) : 1.71 L TLC BOX (L) : 5.63 L TLC_PLETH_PRED (L) : 4.87 L RV/TLC BOX (%) : 35 % RV_TLC_PLETH_PRED (%) : 35 % VA (L) : 5.04 L VA_PRD (L) : 4.46 L DLCO/VA (ML/MIN/MMHG/L) : 0.04 ml/min/mmHg/L DLCO_VA_PRED (L) : 0.04 ml/min/mmHg/L DLCOCOR (ML/MIN/MMHG) : 21.90 ml/min/mmHg DLCOCOR_PRED (ML/MIN/MMHG) : 18.95 ml/min/mmHg DLCO/VACOR (ML/MIN/MMHG/L) : 0.04 ml/min/mmHg/L Normal [facility] ALBUMIN/CREATININE RATIO, UR INEon 12-20-2024 Albumin DL <= 20 mg/L (U) [Mass/Vol] 20.6 mg/L [facility] Albumin/Creatinine (U) [Mass ratio] 20 mg/g NINF - 30 mg/g [facility] Comment on above: Adult Male and Femal e Nephrotic Criteria: <30 mg/g is considered normal to mildly increased 30-300 mg/g is considered moderately increased >300 mg/g is considered severely increased KDIGO. (2013). KDIGO 2012 Clinical Practice Guideline for the Evaluation and Management of Chronic Kidney Disease. Official Journal of the International Society of Nephrology, 3(1), 1-150. Creatinine (U) [Mass/Vol] 105.4 mg/dL 20.0 - 300.0 mg/dL [facility] Albumin DL <= 20 mg/L (U) [Mass/Vol] 20.6 mg/L Normal [facility] Comment on above: Order Comment: Speci men Type: URINE SPECIMENOrdering Facility: [facility] Address: [address] [place] [address] Performed By: #### U ACR ####[facility] LABCLIA [id number] [place] [address] [place] Albumin/Creatinine (U) [Mass ratio] 20 mg/g Normal <30 [facility] Comment on above: Order Comment: Speci men Type: URINE SPECIMENOrdering Facility: [facility] Address: [address] [place] [address] Result Comment: Adul t Male and Female Nephrotic Criteria: <30 mg/g is considered normal to mildly increased 30-300 mg/g is considered moderately increased >300 mg/g is considered severely increased KDIGO. (2013). KDIGO 2012 Clinical Practice Guideline for the Evaluation and Management of Chronic Kidney Disease. Official Journal of the International Society of Nephrology, 3(1), 1-150. Performed By: #### U ACR ####[facility] LABCLIA [id number] [place] [address] [place] Creatinine (U) [Mass/Vol] 105.4 mg/dL Normal 20.0-300.0 [facility] Comment on above: Order Comment: Speci men Type: URINE SPECIMENOrdering Facility: [facility] Address: [address] [place] [address] Performed By: #### U ACR ####[facility] LABCLIA [id number] [place] [address] [place] Bacteria Spec Resp Culton Bacteria identified Respiratory culture Nom (Unsp spec) ORGANISM ID: 1 Many normal respiratory amina GRAM STAIN: Moderate Mixed oral amina Rare Polymorphonuclear leukocytes Abnormal [facility] Comment on above: Performed By: #### 3 2355-0, 56947-6 ####[facility] LABCLIA [id number] [place] [address] [place] Basic metabolic 2000 panelon 12-20-2024 Anion gap [Moles/Vol] 12 mmol/L 8 - 15 mmol/L [facility] Calcium [Mass/Vol] 9.8 mg/dL 8.5 - 10. 2 mg/dL [facility] Chloride [Moles/Vol] 103 mmol/L 98 - 10 7 mmol/L [facility] CO2 [Moles/Vol] 25 mmol/L 22 - 30 mmol/L [facility] Creatinine [Mass/Vol] 1.03 mg/dL High 0.58 - 0.96 mg/dL [facility] GFR/1.73 sq M.predicted among non-blacks MDRD (S/P/Bld) [Vol rate/Area] 62 mL/min/{1.73_m2} - PINF [facility] Comment on above: Estimated Glomerular Filtration Rate (eGFR) is calculated using the 2020 CKD-EPI creatinine equation. This equation utilizes serum creatinine, sex, and age as parameters. The creatinine assay has traceable calibration to isotope dilution-mass spectrometry. Refer to KDIGO guidelines for clinical interpretation. In patients with unstable renal function, e.g. those with acute kidney injury, the eGFR may not accurately reflect actual GFR. Glucose [Mass/Vol] 203 mg/dL High 74 - 99 mg/dL [facility] Comment on above: The [place] Diabete s Association (ADA) provides guidance for cutoff values for fasting glucose and random glucose. The ADA defines fasting as no caloric intake for at least 8 hours. Fasting plasma glucose results between 100 to 125 [...] Standards of Medical Care in Diabetes 2016, [place] Diabetes Association. Diabetes Care. 2016.39(Suppl 1). Potassium [Moles/Vol] 4.2 mmol/L 3.7 - 5.1 mmol/L [facility] Sodium [Moles/Vol] 140 mmol/L 136 - 144 mmol/L [facility] Urea nitrogen [Mass/Vol] 19 mg/dL 7 - 21 mg/dL [facility] Anion gap [Moles/Vol] 12 mmol/L Normal 8-15 [facility] Comment on above: Order Comment: Speci men Type: BLOOD SPECIMENOrdering Facility: [facility] Address: [address] [place] [address] Performed By: #### 2 4321-2, 24283-9 ####[facility] LABCLIA [id number] [facility] [address] [address] [place] Calcium [Mass/Vol] 9.8 mg/dL Normal 8.5-10.2 [facility] Comment on above: Order Comment: Speci men Type: BLOOD SPECIMENOrdering Facility: [facility] Address: [address] [place] [address] Performed By: #### 2 4321-2, 07129-5 ####[facility] LABCLIA [id number] [place] [id number] [place] Chloride [Moles/Vol] 103 mmol/L Normal 98-107 [facility] Comment on above: Order Comment: Speci men Type: BLOOD SPECIMENOrdering Facility: [facility] Address: [address] [place] [address] Performed By: #### 2 432-2, 02129-1 ####[facility] LABCLIA [id number] [facility] [place] [id number] [place] CO2 [Moles/Vol] 25 mmol/L Normal 22-30 [facility] Comment on above: Order Comment: Speci men Type: BLOOD SPECIMENOrdering Facility: [facility] Address: [address] [place] [address] Performed By: #### 2 4321-2, 34608-2 ####[facility] LABCLIA [id number] [facility] [address] [address] [place] Creatinine [Mass/Vol] 1.03 mg/dL High 0.58-0.96 [facility] Comment on above: Order Comment: Speci men Type: BLOOD SPECIMENOrdering Facility: [facility] Address: [address] [place] [address] Performed By: #### 2 4321-2, 84823-0 ####[facility] [id number] [place] [address] [place] Creatinine and Glomerular filtration rate.predicted panel (S/P/Bld) 62 mL/min/1.73m??? Normal >=60 [facility] Comment on above: Order Comment: Roxanne jey Type: BLOOD SPECIMENOrdering Facility: [facility] Address: [address] [place] [address] Result Comment: Jaylyn mated Glomerular Filtration Rate (eGFR) is calculated using the 2020 CKD-EPI creatinine equation. This equation utilizes serum creatinine, sex, and age as parameters. The creatinine assay has traceable calibration to isotope dilution-mass spectrometry. Refer to KDIGO guidelines for clinical interpretation. In patients with unstable renal function, e.g. those with acute kidney injury, the eGFR may not accurately reflect actual GFR. Performed By: #### 2 4321-2, 58143-8 ####[facility] LABIA [id number] [place] [id number] [place] Glucose [Mass/Vol] 203 mg/dL High 74-99 [facility] Comment on above: Order Comment: Roxanne khanna Type: BLOOD SPECIMENOrdering Facility: [facility] Address: [address] [place] [address] Result Comment: The [place] Diabetes Association (ADA) provides guidance for cutoff values for fasting glucose and random glucose. The ADA defines fasting as no caloric intake for at least 8 hours. Fasting plasma glucose results between 100 to 125 [...] Standards of Medical Care in Diabetes 2016, [place] Diabetes Association. Diabetes Care. 2016.39(Suppl 1). Performed By: #### 2 4321-2, 02352-2 ####[facility] LABCLIA [id number] [address] [address] [place] Potassium [Moles/Vol] 4.2 mmol/L Normal 3.7-5.1 [facility] Comment on above: Order Comment: Speci men Type: BLOOD SPECIMENOrdering Facility: [facility] Address: [address] [place] [address] Performed By: #### 2 4321-2, 13288-7 ####[facility] LABIA [id number] [place] [id number] [place] Sodium [Moles/Vol] 140 mmol/L Normal 136-144 [facility] Comment on above: Order Comment: Speci men Type: BLOOD SPECIMENOrdering Facility: [facility] Address: [address] [place] [address] Performed By: #### 2 4321-2, 94692-4 ####[facility] [id number] [place] [id number] [place] Urea nitrogen [Mass/Vol] 19 mg/dL Normal 7-21 [facility] Comment on above: Order Comment: Speci men Type: BLOOD SPECIMENOrdering Facility: [facility] Address: [address] [place] [address] Performed By: #### 2 4321-2, 14752-7 ####[facility] LABIA [id number] [address] [address] [place] HbA1c (Bld)on 12-20-2024 Average glucose Estimated from glycated hemoglobin (Bld) [Mass/Vol] 166 mg/dL [facility] Comment on above: eAG: (Estimated aver age glucose) is a calculated value from HgbA1c and is sales and merchandising representative of the average blood glucose level in the last 2-3 month period. HbA1c (Bld) [Mass fraction] 7.4 % High 4.3 - 5.6 % [facility] Comment on above: [place] Diabetes As sociation guidelines indicate that patients with HgbA1c in the range 5.7-6.4% are at increased risk for development of diabetes, and intervention by lifestyle modification may be beneficial. HgbA1c greater or equal to 6.5% is considered diagnostic of diabetes. Interpretation and review of laboratory results Abnormal [facility] Average glucose Estimated from glycated hemoglobin (Bld) [Mass/Vol] 166 mg/dL Normal [facility] Comment on above: Order Comment: Roxanne men Type: BLOOD SPECIMENOrdering Facility: [facility] Address: [address] [place] [address] Result Comment: eAG: (Estimated average glucose) is a calculated value from HgbA1c and is sales and merchandising representative of the average blood glucose level in the last 2-3 month period. Performed By: #### 5 5454-3 ####[facility] LABCLIA [id number] [place] [address] [place] HbA1c (Bld) [Mass fraction] 7.4 % High 4.3-5.6 [facility] Comment on above: Order Comment: Roxanne khanna Type: BLOOD SPECIMENOrdering Facility: [facility] Address: [address] [place] [address] Result Comment: [place] Diabetes Association guidelines indicate that patients with HgbA1c in the range 5.7-6.4% are at increased risk for development of diabetes, and intervention by lifestyle modification may be beneficial. HgbA1c greater or equal to 6.5% is considered diagnostic of diabetes. Performed By: #### 5 5454-3 ####[facility] LABCLIA [id number] [facility] [place] [id number] [place] Lipid 1996 panelon 5 Cholesterol [Mass/Vol] 142 mg/dL NINF - 200 mg/dL [facility] Comment on above: <200 mg/dL, Desirabl e 200-239 mg/dL, Borderline high >239 mg/dL, High Cholesterol in HDL [Mass/Vol] 53 mg/dL 39 - PINF mg/dL [facility] Comment on above: 40-59 mg/dL, Accepta ble >59 mg/dL, High: Negative risk factor for coronary heart disease <40 mg/dL, Low: Positive risk factor for coronary heart disease Cholesterol in LDL [Mass/Vol] 59 mg/dL NINF - 100 mg/dL [facility] Comment on above: <100 mg/dL, Optimal 100-129 mg/dL, Near optimal/above optimal 130-159 mg/dL, Borderline high 160-189 mg/dL, High >189 mg/dL, Very high Secondary prevention optimal LDL Cholesterol levels are recommended to be <70 mg/dL LDL cholesterol is calculated using the Huerta-NIH equation. Cholesterol in LDL/Cholesterol in HDL [Mass ratio] 1.11 {ratio} NINF - 2.54 [facility] Comment on above: Reference: 1. National Cholesterol Education Program ATP III Guideline At-A-Glance Quick Desk Reference: National Heart, Lung, and Blood Downing. National Institutes of Health. 2001: NIH Publication No. 01-3305. 2. An International Atherosclerosis Society position paper: global recommendations for the management of dyslipidemia: executive summary, Atherosclerosis. 2014: 232(2):410-413. Cholesterol in VLDL [Mass/Vol] 27 mg/dL NINF - 30 mg/dL [facility] Cholesterol non HDL [Mass/Vol] 89 mg/dL NINF - 130 mg/dL [facility] Comment on above: <130 mg/dL, Optimal 130-159 mg/dL, Near optimal/above optimal 160-189 mg/dL, Borderline high 190-219 mg/dL, High >219 mg/dL, Very high Secondary prevention optimal non HDL Cholesterol levels are recommended to be <100 mg/dL Cholesterol.total/Cho lesterol in HDL [Mass ratio] 2.68 {ratio} NINF - 5.10 [facility] Fasting Time 12 hrs [facility] [facility] Triglyceride [Mass/Vol] 183 mg/dL High NINF - 150 mg/dL [facility] Comment on above: <150 mg/dL, Normal 150-199 mg/dL, Borderline high 200-499 mg/dL, High >499 mg/dL, Very high Cholesterol [Mass/Vol] 142 mg/dL Normal <200 [facility] Comment on above: Order Comment: Speci men Type: BLOOD SPECIMENOrdering Facility: [facility] Address: [address] [place] [address] Result Comment: <200 mg/dL, Desirable 200-239 mg/dL, Borderline high >239 mg/dL, High Performed By: #### 2 4321-2, 95252-9 ####[facility] LABCLIA [id number] [facility] [address] [address] [place] Cholesterol in HDL [Mass/Vol] 53 mg/dL Normal >39 [facility] Comment on above: Order Comment: Speci men Type: BLOOD SPECIMENOrdering Facility: [facility] Address: [address] [place] [address] Result Comment: 40-5 9 mg/dL, Acceptable >59 mg/dL, High: Negative risk factor for coronary heart disease <40 mg/dL, Low: Positive risk factor for coronary heart disease Performed By: #### 2 4321-2, 00020-9 ####[facility] LABCLIA [id number] [address] [place] Cholesterol in LDL [Mass/Vol] 59 mg/dL Normal <100 [facility] Comment on above: Order Comment: Roberti men Type: BLOOD SPECIMENOrdering Facility: [facility] Address: [address] [place] [address] Result Comment: <100 mg/dL, Optimal 100-129 mg/dL, Near optimal/above optimal 130-159 mg/dL, Borderline high 160-189 mg/dL, High >189 mg/dL, Very high Secondary prevention optimal LDL Cholesterol levels are recommended to be <70 mg/dL LDL cholesterol is calculated using the Huerta-NIH equation. Performed By: #### 2 4321-2, 28591-1 ####[facility] LABCLIA [id number] [place] [id number] [place] Cholesterol in LDL/Cholesterol in HDL [Mass ratio] 1.11 {ratio} Normal <2.54 [facility] Comment on above: Order Comment: Speci men Type: BLOOD SPECIMENOrdering Facility: [facility] Address: [address] [place] [address] Result Comment: Alma bhakta: 1. National Cholesterol Education Program ATP III Guideline At-A-Glance Quick Desk Reference: National Heart, Lung, and Blood Downing. National Institutes of Health. 2001: NIH Publication No. 01-3305. 2. An International Atherosclerosis Society position paper: global recommendations for the management of dyslipidemia: executive summary, Atherosclerosis. 2014: 232(2):410-413. Performed By: #### 2 4320-2, 47702-3 ####[facility] LABCLIA [id number] [place] [address] [place] Cholesterol in VLDL [Mass/Vol] 27 mg/dL Normal <30 [facility] Comment on above: Order Comment: Speci men Type: BLOOD SPECIMENOrdering Facility: [facility] Address: [address] [place] [address] Performed By: #### 2 4320-09, 04486-4 ####[facility] LABCLIA [id number] [place] [address] [place] Cholesterol non HDL [Mass/Vol] 89 mg/dL Normal <130 [facility] Comment on above: Order Comment: Roberti men Type: BLOOD SPECIMENOrdering Facility: [facility] Address: [address] [place] [address] Result Comment: <130 mg/dL, Optimal 130-159 mg/dL, Near optimal/above optimal 160-189 mg/dL, Borderline high 190-219 mg/dL, High >219 mg/dL, Very high Secondary prevention optimal non HDL Cholesterol levels are recommended to be <100 mg/dL Performed By: #### 2 4320-, 26039-2 ####[facility] LABCLIA [id number] [address] [address] [place] Cholesterol.total/Cho lesterol in HDL [Mass ratio] 2.68 {ratio} Normal <5.10 [facility] Comment on above: Order Comment: Speci men Type: BLOOD SPECIMENOrdering Facility: [facility] Address: [address] [place] [address] Performed By: #### 2 4320-, 97522-8 ####[facility] LABCLIA [id number] [place] [address] [place] FASTING TIME 12 hrs Normal [facility] Comment on above: Order Comment: Speci men Type: BLOOD SPECIMENOrdering Facility: [facility] Address: [address] [place] [address] Performed By: #### 2 4321-2, 84422-9 ####[facility] LABIA [id number] [place] [address] [place] Triglyceride [Mass/Vol] 183 mg/dL High <150 [facility] Comment on above: Order Comment: Speci men Type: BLOOD SPECIMENOrdering Facility: [facility] Address: [address] [place] [address] Result Comment: <150 mg/dL, Normal 150-199 mg/dL, Borderline high 200-499 mg/dL, High >499 mg/dL, Very high Performed By: #### 2 4321-2, 01042-8 ####[facility] LABIA [id number] [place] [address] [place] Microorganism Spec Culton Microorganism identified Cx Nom (Unsp spec) CULTURE, AFB: No Acid Fast Bacilli isolated after 42 days AFB STAIN: No acid fast bacilli seen by fluorochrome stain Normal [facility] Comment on above: Performed By: #### 3 2355-0, 56422-4 ####[facility] LABIA [id number] [place] [address] [place] No Panel Informationon 12-20 Interpretation and review of laboratory results Abnormal [facility] CNOVon 12-18-2024 CNOV Office Visit ([facility] ) STEFANIE SIMMONS ([id number]) 1960 F CHT Date Time Provider Department 12/18/24 5:40 PM ZACHARY TONEY [facility] During your visit today, we recorded the following information about you: Pulse Blood pressure Weight 71/minute 102/62 77.6 kg Zachary Toney MD 12/18/2024 6:05 PM Signed This note was created using Trustpilotriter. Subjective Stefanie Simmons is a 64 year old female. Restless legs, and depression were controlled. She needed medication refills. Her diabetes mellitus was managed by [facility] and well controlled. She did not tolerate using a CPAP. Sleep quality was good. She was seeing pulmonary here, and was now being worked up for chronic cough and ashtma. Review of Systems Constitutional: Negative for fatigue and fever. HENT: Negative for congestion. Respiratory: Positive for cough. Negative for shortness of breath and wheezing. Cardiovascular: Negative for chest pain, palpitations and leg swelling. Neurological: Negative for dizziness and headaches. ACTIVE PROBLEM LIST Essential Hypertension Other Hyperlipidemia Type 2 Diabetes Mellitus With Diabetic Neuropathy, With Long-Term Current Use of Insulin (Hcc) Gerd (Gastroesophageal Reflux Disease) Symptomatic Menopausal Or Female Climacteric States Multinodular Thyroid Depressive Disorder Bilateral Carotid Artery Stenosis Obesity, Class I, Bmi 30-34.9 Degeneration of Intervertebral Disc of Cervical Region Restless Legs Gait Abnormality DEBBIE (obstructive sleep apnea) mild; moderate when supine. Seasonal Allergies Osteoarthritis of Both Thumbs Vitamin D Deficiency Telangiectasia of Skin Meralgia Paresthetica of Left Side Gastroparesis Tubular Adenoma of Colon Chronic Cough Social History Tobacco Use Smoking status: Former Current packs/day: 0.00 Average packs/day: 1 pack/day for 34.0 years (34.0 ttl pk-yrs) Types: Cigarettes Start date: 11/30/1974 Quit date: 12/12/2008 Years since quittin.0 Smokeless tobacco: Never Vaping Use Vaping status: Never Used Substance Use Topics Alcohol use: Not Currently Alcohol/week: 3.0 standard drinks of alcohol Types: 3 Cans of Beer (12oz) per week Comment: Occasionally Drug use: Yes Frequency: 7.0 times per week Types: Marijuana Comment: PT Smokes 3x a day Current Outpatient Medications Medication Sig atorvastatin (LIPITOR) 40 mg tablet Take 1 tablet by mouth once daily. gabapentin (NEURONTIN) 300 mg capsule Take 1 capsule at around Noon, 1 capsule with dinner and 3 capsules at bedtime. lisinopril-hydroCHLOROthiaz tyrone (ZESTORETIC) 20-12.5 mg per tablet Take 2 tablets by mouth once daily. metFORMIN ER (GLUCOPHAGE XR) 500 mg 24 hr tablet Take 1 tablet by mouth daily with breakfast. omeprazole (PRILOSEC) 40 mg capsule Take 1 capsule by mouth two times a day. traZODone (DESYREL) 100 mg tablet Take 1 tablet by mouth daily at bedtime. CPAP/BIPAP/OTHER APAP 5-15 cmH2O [facility] (Patient not taking: Reported on 12/06/2024) dicyclomine (BENTYL) 10 mg capsule Take 10 mg by mouth three times a day. fexofenadine (MANJULA ALLERGY) 180 mg tablet Take 1 tablet by mouth once daily. sertraline (ZOLOFT) 100 mg tablet Take 1 tablet by mouth once daily. ergocalciferol 50,000 unit capsule (VITAMIN D2, DRISDOL) Take 1 capsule by mouth one time a week. Use as directed. metoclopramide HCl (REGLAN) 10 mg tablet Take 1 tablet by mouth every 6 hours as needed (nausea, vomiting). 30min before meals. LINZESS 145 mcg capsule Take 1 capsule by mouth every afternoon. (Patient not taking: Reported on 12/06/2024) NOVOLOG U-100 INSULIN ASPART 100 unit/mL For insulin pump. Per endocrinology. estradiol (ESTRACE) 0.01 % (0.1 mg/gram) vaginal cream ondansetron orally disintegrating (ZOFRAN ODT) 4 mg disintegrating tablet Take 1 tablet by mouth every 8 hours as needed for nausea/vomiting. No current facility-administered medications for this visit. Objective BP 102/62 Pulse 71 Wt 77.6 kg (171 lb 1.2 oz) SpO2 95% BMI 30.30 kg/m? Physical Exam Constitutional: General: She is not in acute distress. Cardiovascular: Rate and Rhythm: Normal rate and regular rhythm. Heart sounds: No murmur heard. No gallop. Pulmonary: Effort: No respiratory distress. Breath sounds: No wheezing, rhonchi or rales. Abdominal: Tenderness: There is no abdominal tenderness. Musculoskeletal: Right lower leg: No edema. Left lower leg: No edema. Neurological: Mental Status: She is alert. Feet:Shoes and socks removed, No deformities, ulcers, normal distal pulses, not sensitive to monofilament in both forefeet, and calluses in both big toe MTP joints. Assessment and Plan 1. Essential hypertension - ICD9: 401.9, ICD10: I10 (primary diagnosis) - Controlled - Continue current medications - Recommend regular aerobic exercise 2. Restles (more content not included)... Normal [facility] CNOVon 12-06-2024 CNOV Office Visit ([facility] ) STEFANIE SIMMONS ([id number]) 1960 F T Date Time Provider Department 12/06/24 2:00 PM MAINE MARVIN [facility] During your visit today, we recorded the following information about you: Pulse Blood pressure Weight 72/minute 129/73 78.3 kg Maine Marvin APRN.CNP 12/06/2024 1:57 PM Signed According to your smoking history, the US Preventive Services Task Force does NOT recommend lung cancer screening for you. Due to this, the low dose CT for screening will not be a covered insurance benefit for you. You are ineligible due to: quitting smoking cigarettes > 15 years ago Lung Cancer Screening Eligibility Criteria: In order to be eligible for lung cancer screening a patient must be 50-77 years old have smoked cigarettes within the last 15 years have no signs or symptoms attributable to a potential lung cancer have a 20 pack year history of smoking. Be willing and able to tolerate curative intent treatment Lung Cancer Screening hotline: [phone] Specialist Providers: (Madeleine Lucero CNP; Tri Perez CNP; Nikki Nicholson CNP; Renuka Lopez CNP; Deepa Coy PA-C; Alessandra Gary PA-C; Jennifer Quintana CNP, Kika Bob CNP, Siobhan Caldwell CNP, Maine Marvin CNP AND Maddy Esposito PA-C): [phone] Maine Marvin APRN.CNP 12/06/2024 3:26 PM Signed LUNG SCREENING ANNUAL VISIT PRIMARY CARE PHYSICIAN: Zachary Toney MD PULMONARY PROVIDER: none Results will be communicated via letter or electronic record if applicable. Visit Delivery: In Person Patient Visit Type: established Current or Ex-smoker? Ex Exam Type: annual LDCT Number of Pack Years:34 Current smoker (=0) or Number of Years since Quit: 15 The patient's smoking history is similar to prior year shared decision visit. The reason for the discrepancy is NA Chief Complaint: Established patient in lung cancer screening program here for annual follow-up. Impression / Recommendations Stefanie Simmons presents for annual lung cancer screening annual exam and nodule evaluation. Plan: Indeterminate pulmonary nodules: No new nodules of concern were seen on the exam. Stable calcified nodules. No further follow up is recommended. Plan subject to change pending final radiology report and recommendations. Nature of the lung nodule(s) and the options for further evaluation discussed in detail with patient. Stefanie Simmons expressed understanding and is in agreement with plan. 2. Encounter for screening for malignant neoplasm of respiratory organs I have determined that the patient is not eligible for continued low dose CT screening based on quitting smoking >15 years ago. Six year risk of developing lung cancer is 1.1% 3. Nicotine Dependence The patient was counseled on the importance of maintaining cigarette smoking abstinence - The patient is committed to remaining abstinent from tobacco. 4. Persistent cough > 3 weeks: cough has been persistent since 2020. Patient had PFT testing and it was WNL. She has no history of asthma. She is on omeprazole 40 mg daily. She is on manjula daily. She has not had any elevated eosinophils. She has history of neck injury and surgery. She does have clear to white sputum. Will check sputum culture and econsult cough clinic. - BACTERIAL CULTURE AND GRAM STAIN, RESPIRATORY, SPUTUM AND TRACHEAL ASPIRATE - AFB CULTURE AND STAIN - E-CONSULT CHRONIC COUGH CLINIC Maine Marvin APRN.CNP December 06, 2024 11:33 AM History of Present Illness: Stefanie Simmons is a 64 year old female who is presenting today for annual lung cancer screening LDCT and nodule surveillance/management. Patient has no lung nodules found on previous lung cancer screening LDCT. Last LDCT was performed on 04/01/2022 and was LUNG RADS Category 1. Previous potentially significant incidental findings on imaging: CAC. Patient is a former smoker with a 34 pack year history. Patient quit smoking 15 years ago at age 48. Patient will continue to be eligible for lung cancer screening. The patient does not have any symptoms or signs of lung cancer. Patient denies SOB with their daily activity. No wheezing or dyspnea. Patient denies feeling of chest tightness/congestion in the chest. Patient does not have a new or concerning cough, and denies hemoptysis. Patient does have a chronic daily cough-clear and white sputum . Denies regular or recent fevers/chills. Patient does not have any significant unintentional weight loss. Patient denies having any respiratory infections or COVID-19 in the past few months. Does not use any maintenance inhaler for COPD. Modified Medical Research [place] Dyspnea Scale (MMRC) I only get breathless with strenous exercise 0 La (more content not included)... Normal [facility] CT LUNG SCREEN WO IVCONon CT LUNG SCREEN WO IVCON * * *Final Report* * * DATE OF EXAM: Dec 06 2024 1:19PM [facility] [place] / PROCEDURE REASON: multiple diagnoses * * * * Physician Interpretation * * * * EXAMINATION: CHEST CT WITHOUT CONTRAST (LOW-DOSE CT LUNG CANCER SCREENING PROTOCOL) CLINICAL HISTORY: Lung cancer LDCT screening ? absence of signs or symptoms of lung cancer. Personal history of nicotine dependence. Subsequent (annual) Technique: Spiral CT acquisition of the chest from the thoracic inlet to the upper abdomen without contrast. MQ: [id number]_6 Patient characteristics: * Otlh-xh-Dkffo: 1960; Age at exam: 64 years * Gender: Female * Lung Disease: Asymptomatic (no signs or symptoms of lung disease) * Number of Pack Years: 34 * Current smoker (=0) or Number of Years since Quit: 15 * Ordering provider and NPI: RENUKA LOPEZ [id number] * Interpreting radiologist and NPI: Freddie [id number] Exam acquisition parameters: * Exam Date: 12/06/2024 1:19 PM * Site: [facility] * * CT System Assistant Professor Of Art: LilaKutu * CT System Model: TrustGo * Tube Current-Time (mA-sec): 100 * Peak Voltage (kV): 120V * Scan Time (sec): 4.82 * Scan Volume (z-length, cm): 33.40 * Pitch: 0.984 * Slice Thickness (mm): 1.25 * CT Dose-Length Product: 154 mGy*cm * CT Dose Index: 4.19mGy * CT Dose Reduction Method: Automated exposure control(AEC) and iterative recon COMPARISON: Low-dose CT lung screen, 04/28/2022 RESULT: Are nodules present? Yes, 1-5 nodules If No, go to IMPRESSION. If yes, proceed with characterization of the FIVE largest nodules. Nodule 1: This Perifissural nodule is located in the Right major fissure on slice number 227 with an average diameter of 3.6 mm (4.6 mm x 2.6 mm). Nodule 2: This Calcified nodule is located in the Right Lower Lobe on slice number 258 with an average diameter of 2.6 mm (2.9 mm x 2.2 mm). Nodule 3: This Calcified nodule is located in the Left Upper Lobe on slice number 91 with an average diameter of 2.6 mm (2.9 mm x 2.2 mm). Nodule 4: This Calcified nodule is located in the Right Upper Lobe on slice number 228 with an average diameter of 2.2 mm (2.2 mm x 2.2 mm). Nodule 5: This Calcified nodule is located in the Right Middle Lobe on slice number 341 with an average diameter of 1.9 mm (2.2 mm x 1.6 mm). If this is an ANNUAL LDCT for LCS, please ensure nodule number is the same as in the prior evaluation. Other lung nodule comments: None Other findings: Mild diffuse bronchial wall thickening in both lungs suggestive of chronic airway inflammation. Linear atelectasis or mild scarring in the medial right lower lobe adjacent to prominent bony spurs/marginal osteophytes in the thoracic spine. Minimal subpleural fibrosis with reticular opacities again noted in the anterior and bilateral upper lobes. Mild mosaicism of the lung parenchyma suggestive of air trapping in the mid to lower lung zones. Subcentimeter calcification in the left thyroid lobe. Mild aortic root, aortic arch and descending aorta calcifications. Moderate coronary calcifications. Degenerative changes in the spine and bilateral shoulder joints. Lower anterior cervical spine fixation plate again noted. Stable subcentimeter calcifications and/or clips in both breasts. Stable 12 mm nodular density in the left breast (image 248), an additional nodular densities in the right breast. Emphysema: None, Not reported, Not reported Coronary Artery Calcifications: Circumflex Mild; Left Anterior Descending Moderate; Right Coronary Moderate Incidental coronary calcium as automatically processed and calculated using AI: Total Coronary Calcium Score = [100+] Agatston Units Percentile Rank (age and gender matched relative to reference population): [75th-100th] percentile* [* [email or web address].tolentino-nhlbi.org/ calcium/input.aspx] Localizer images: No additional findings. IMPRESSION: LungRADS category: 2 S LungRADS modifier: Significant other (S), coronary artery calcification, moderate or severe LungRADS 0 reason: n/a Recommendations: Continue annual screening with LDCT in 12 months. Other actionable findings: Reference: [employer]. Lung CT Screening Reporting and Data System (Lung-RADS). Available at: http://www.acr.org/Quality- Safety/Resources/LungRADS Machine Installer: DELVIN Transcribe Date/Time: Dec 07 2024 11:26A Dictated by : RENATO POWERS MD This examination was interpreted and the report reviewed and electronically signed by: RENATO POWERS MD on Dec 07 2024 11:36AM EST [id number] Normal [facility] Endocrinology Visit Reporton 11-29-2024 Endocrinology Visit Report [facility] [address] [place] [address] OFFICE VISIT Date of Service: 11/29/24 MR#: [id number] Acct: [id number] Name: STEFANIE SIMMONS Rep #: [id number] : 1960 Provider: SIMA lira Age/Sex: 64/F Location: [facility] Status: Signed Intake Vital Signs 08/02/24 10:36 09/29/24 11:54 11/29/24 10:36 Height 5 ft 3 in 5 ft 3 in 5 ft 3 in Weight: 172 lb BMI 30.4 BP 110/70 Blood Pressure Location Lt brachial Position Sitting Respiration 16 Pulse 69 Pulse Source Monitor Temp 97.0 F L Temp Source Temporal Pulse Oximetry (%) 96 Oxygen Delivery Method room air Intake Visit Reasons: 4 M FU Chief Complaint: f/u diabetes Featherer Required: No Is patient in pain?: Yes (abdomen) Pain scale (1-10): 6 Allergies simvastatin (From Zocor) Allergy (Verified 11/29/24 10:39) Swelling Sulfa (Sulfonamide Antibiotics) Allergy (Verified 11/29/24 10:39) Swelling Medications ???Medication ???Instructions ???Recorded ???Confirmed ???Type lisinopril 20 1 tab PO DAILY bp 09/22/19 5 History mg-hydrochlorothiazide 12.5 mg tablet sertraline 100 mg tablet 100 mg PO DAILY depression 0 11/29/24 History pen needle, diabetic 32 gauge x #150 ea 08/01/21 11/29/24 Rx (BD Ultra-Fine Sheri Pen Needle) omeprazole 40 mg capsule,delayed 40 mg PO BID gerd 12/09/21 5 History release trazodone 100 mg tablet 100 mg PO QHS insomnia 12/09/21 History gabapentin 300 mg capsule 300 mg PO BID pain 12/17/22 History blood sugar diagnostic (OneTouch #100 ea 03/11/23 11/29/24 Rx Ultra Test strips) gabapentin 300 mg capsule 900 mg PO QHS 11/02/23 11/29/24 Hi story atorvastatin 40 mg tablet 40 mg PO QHS 05/03/24 11/29/24 His tory blood-glucose sensor (Dexcom G7 #9 ea 05/03/24 11/29/24 Rx Sensor device) mirabegron 50 mg tablet,extended 50 mg PO QDAY 05/03/24 11/29/24 Hi story release 24 hr (Myrbetriq) blood sugar diagnostic (Accu-Chek #100 ea 05/24/24 11/29/24 Rx Guide test strips) estradiol 0.01% (0.1 mg/gram) 1 appful vaginal QWEEK 05/29/24 History vaginal cream insulin lispro 100 unit/mL 1 unit subcut CONT hyperglycemia 0 09/25/24 11/29/24 History subcutaneous cartridge cholecalciferol (vitamin D3) 100 2,000 unit PO BID 09/27/24 5 History mcg (4,000 unit) capsule naproxen 375 mg tablet 375 mg PO BID PRN pain #20 tabs 11/29/24 Rx pen needle, diabetic 32 gauge x #50 ea 10/26/24 11/29/24 Rx 5/32 (BD Ultra-Fine Sheri Pen Needle) hyoscyamine sulfate 0.125 mg tablet 0.125 mg PO BID-QID PRN dyspeps ia 11/10/24 11/29/24 Rx #60 tabs empagliflozin 25 mg tablet 25 mg PO QAM #30 tabs 11/15/2410/24 Rx (Jardiance) [facility] Medical History (Updated 11/29/24 @ 11:48 by Christa Villarreal NP-C) Insulin dependent diabetes mellitus Ambulates with cane History of renal disease GERD (gastroesophageal reflux disease) Obesity Presence of pessary Presence of insulin pump Gastroparesis Diabetes Wears glasses Wears dentures Depression Anxiety Marijuana use Thyroid disease Arthritis Fatty liver High cholesterol Restless legs Injury of head and neck Dietary restriction History of hiatal hernia Former smoker Leg cramps History of edema History of stress test Cardiology follow-up encounter Diarrhea Nausea vomiting Abdominal pain Diarrhea Nausea Acute right flank pain Acute hypokalemia Hyperlipidemia HTN (hypertension) Surgical History History of esophagogastroduodenoscopy (EGD) Hx of colonoscopy History of esophagogastroduodenoscopy (EGD) History of hysterectomy H/O foot surgery History of hip surgery History of rotator cuff surgery History of left knee surgery h/o left hand surgery Family History Mother Hypertension Lupus Glaucoma Arthritis Neuropathy Brother Diabetes Hypertension Hyperlipemia Social History household members: other details: daughter housing: house Smoking Status: Former smoker Tobacco: How many years used: 35 alcohol intake: never what type of physical activity do you participate in: none do you feel safe at home: Yes HPI HPI Chief Complaint: f/u diabetes Details: STEFANIE SIMMONS, is a 64 F who presents to the office today for evaluation and management of diabetes. A1C today is 6.8%, improved from 08/02/24 at 8.2%. She has gained 3 lbs since that time. Currently using Tslim insulin pump with Dexcom CGM. Insulin pump reviewed- she continues to under report carbohydrates. She d (more content not included)... [facility] CNOVon 10-11-2024 [facility] Office Visit (OBGYWM ) STEFANIE SIMMONS ([id number]) 1960 F CHT Date Time Provider Department 10/11/24 3:20 PM FRIDA LOPEZ OBSANDYWM During your visit today, we recorded the following information about you: Blood pressure Weight 124/70 76.7 kg Frida Lopez MD 10/11/2024 4:27 PM Signed Bariatric Nurse offered: Patient declines. Stefanie Simmons is a 64 year old female who presents today for application of TCA to vulvar lesion . Indication: new vulvar lesion. UNIVERSAL PROTOCOL / SAFETY CHECKLIST Procedure to be Performed: Application of TCA to condyloma Sign In: A Moment of CARE was completed. Personnel directly involved with the procedure wore the appropriate PPE (Personal Protective Equipment). Patient/Surrogate Stated/Verified: PATIENT VERIFIED(optional for EMERGENT procedures): Patient name, Date of , Relevant allergies, and The intended procedure Time Out Communication: Intended patient and procedure match the source documents. Consent documented and matches the intended procedure. Sign Out: SIGN OUT (optional for EMERGENT procedures): No specimen collected. PROCEDURE NOTE: GROSS LESIONS: Yes, 3 tiny flesh colored condyloma appearing lesions at perineum TCA placed on sterile Q tip and placed on lesions- pt tolerated well. Procedure Summary: Patient tolerated procedure well. ASSESSMENT: Vulvar lesions- c/w condyloma PLAN: RTO as needed Dicussed applying aquafor to area if irritation occurs Frida Go MD Allergies As of Date: 10/11/2024 Noted Allergy Reaction SULFA (SULFONAMIDE ANTIBIOTICS) 07/02/2006 7 - Swelling 9 - Itching SEASONAL ALLERGIES 01/25/2018 5 - Intolerance ZOCOR (SIMVASTATIN) 12/02/2005 7 - Swelling Date Reviewed: 06/16/2024 Reviewed by: Sherita Hansen LPN - Fully Assessed Reason for Visit: Vaginal Problem [117] Primary Visit Diagnosis:Vulvar lesion [N90.89] Other Visit Diagnosis:Condyloma acuminatum of vulva [A63.0] Prescriptions as of 10/11/2024 - atorvastatin (LIPITOR) 40 mg tablet Take 1 tablet by mouth once daily. - gabapentin (NEURONTIN) 300 mg capsule Take 1 capsule at around Noon, 1 capsule with dinner and 3 capsules at bedtime. - lisinopril-hydroCHLOROthiaz tyrone (ZESTORETIC) 20-12.5 mg per tablet Take 2 tablets by mouth once daily. - metFORMIN ER (GLUCOPHAGE XR) 500 mg 24 hr tablet Take 1 tablet by mouth daily with breakfast. - omeprazole (PRILOSEC) 40 mg capsule Take 1 capsule by mouth two times a day. - traZODone (DESYREL) 100 mg tablet Take 1 tablet by mouth daily at bedtime. - CPAP/BIPAP/OTHER APAP 5-15 cmH2O [facility] - dicyclomine (BENTYL) 10 mg capsule Take 10 mg by mouth three times a day. - fexofenadine (MANJULA ALLERGY) 180 mg tablet Take 1 tablet by mouth once daily. - sertraline (ZOLOFT) 100 mg tablet Take 1 tablet by mouth once daily. - ergocalciferol 50,000 unit capsule (VITAMIN D2, DRISDOL) Take 1 capsule by mouth one time a week. Use as directed. - metoclopramide HCl (REGLAN) 10 mg tablet Take 1 tablet by mouth every 6 hours as needed (nausea, vomiting). 30min before meals. - LINZESS 145 mcg capsule Take 1 capsule by mouth every afternoon. - NOVOLOG U-100 INSULIN ASPART 100 unit/mL For insulin pump. Per endocrinology. - estradiol (ESTRACE) 0.01 % (0.1 mg/gram) vaginal cream - ondansetron orally disintegrating (ZOFRAN ODT) 4 mg disintegrating tablet Take 1 tablet by mouth every 8 hours as needed for nausea/vomiting. Problem List As Of Date 10/11/2024 Noted Resolved Essential hypertension [I10] 11/26/2005 Other hyperlipidemia [E78.49] 11/26/2005 Type 2 diabetes mellitus with diabetic neuropat*11/26/2005 Genital warts [A63.0] 03/05/2010 03/27/2012 Dermatofibroma of lower extremity [D23.70] 04/26/2011 03/27/2012 Reticular Varicose Vein: R leg prox outer mid a*04/26/2011 03/27/2012 Telangiectasia associated with the Reticular Ve*04/26/2011 03/27/2012 Epidermal Cyst: L mid lower cheek jawline area *04/26/2011 03/27/2012 Pilar Cyst: R side scalp [L72.11] 04/26/2011 03/27/2012 GERD (gastroesophageal reflux disease) [K21.9] 03/25/2012 Esophagitis, unspecified [K20.90] 04/07/2012 10/03/2021 Symptomatic menopausal or female climacteric st*05/20/2012 Multinodular thyroid [E04.2] 01/19/2014 Depressive disorder [F32.A] 07/19/2018 Foot trauma, right, initial encounter [S99.921A]07/19/2020 07/04/2021 Displaced fracture of navicular (scaphoid) of r*07/23/2020 07/06/2021 Acute right ankle pain [M25.571] 10/18/2020 07/04/2021 Neck pain [M54.2] 01/15/2021 10/03/2021 Bilateral carotid artery stenosis [I65.23] 02/14/2021 Obesity, Class I, BMI 30-34.9 [E66.811] 10/03/2021 Degeneration of intervertebral disc of cervical*10/03/2021 Restless legs [G25.81] 10/03/2021 Bilateral hip pain [M25.551, M25.552] 11/04/2021 08/27/2022 Gait abnormality [R26.9] 11/04/2021 DEBBIE ( (more content not included)... Normal [facility] Emergency Department Summary on 09-29-2024 Emergency Department Summary [facility] Medical Records Department [address] [place] [address] Emergency Department Summary 09/29/24 MR#: [id number] Acct: [id number] Name: STEFANIE SIMMONS Rep #: [id number] : 1960 64 From: Johanna Cramer DO PCP: Dr. Zachary Toney MD Status:DEP ER Location: ED HPI History of Present Illness Chief Complaint: Upper Extremity Injury Informant: patient Narrative Narrative: Patient is a 64-year-old female with history of bilateral rotator cuff surgery, type 2 diabetes mellitus, gastroparesis, hypertension and CKD 3 (most recent GFR 52 on 05/29/2024) presenting with atraumatic left shoulder pain. Patient is left-hand dominant. She notes she did have endoscopy with Dr. Brown 2 days ago. She notes she was on her left side with this. For the past 2 days she has had worsening left shoulder pain. Worse with movement of the shoulder. She states it is stabbing in her shoulder and her humerus/mid arm feels like it is throbbing. She is not take anything for pain. She states Tylenol does only work with her. She previously was on meloxicam but taken off of it because of concern of anemia. Patient denies any other complaints or concerns reported at this time. Nuys any injuries or falls. No numbness or tingling reported. Denies any chest pain or difficulty breathing. [facility] Medical History Insulin dependent diabetes mellitus Ambulates with cane History of renal disease GERD (gastroesophageal reflux disease) Obesity Presence of pessary Presence of insulin pump Gastroparesis Diabetes Wears glasses Wears dentures Depression Anxiety Marijuana use Thyroid disease Arthritis Fatty liver High cholesterol Restless legs Injury of head and neck Dietary restriction History of hiatal hernia Former smoker Leg cramps History of edema History of stress test Cardiology follow-up encounter Diarrhea Nausea vomiting Abdominal pain Diarrhea Nausea Acute right flank pain Acute hypokalemia Hyperlipidemia HTN (hypertension) Home Medications ???Medication ???Instructions ???Recorded ???Last Taken ???Type lisinopril 20 1 tab PO DAILY bp 09/22/19 5 History mg-hydrochlorothiazide 12.5 mg tablet sertraline 100 mg tablet 100 mg PO DAILY depression 0 09/26/24 History pen needle, diabetic 32 gauge x #150 ea 08/01/21 Unknown Rx (BD Ultra-Fine Sheri Pen Needle) omeprazole 40 mg capsule,delayed 40 mg PO BID gerd 12/09/21 5 History release trazodone 100 mg tablet 100 mg PO QHS insomnia 12/09/21 History gabapentin 300 mg capsule 300 mg PO BID pain 12/17/22 History blood sugar diagnostic (OneTouch #100 ea 03/11/23 Unknown Rx Ultra Test strips) gabapentin 300 mg capsule 900 mg PO QHS 11/02/23 09/26/24 Hi story atorvastatin 40 mg tablet 40 mg PO QHS 05/03/24 09/26/24 His tory blood-glucose sensor (Dexcom G7 #9 ea 05/03/24 Unknown Rx Sensor device) empagliflozin 25 mg tablet 25 mg PO QAM #30 tabs 05/03/24 Rx (Jardiance) mirabegron 50 mg tablet,extended 50 mg PO QDAY 05/03/24 09/27/24 Hi story release 24 hr (Myrbetriq) blood sugar diagnostic (Accu-Chek #100 ea 05/24/24 Unknown Rx Guide test strips) estradiol 0.01% (0.1 mg/gram) 1 appful vaginal QWEEK 05/29/24 History vaginal cream pen needle, diabetic 32 gauge x #50 ea 06/27/24 Unknown Rx (BD Ultra-Fine Sheri Pen Needle) insulin lispro 100 unit/mL 1 unit subcut CONT hyperglycemia 0 09/25/24 09/27/24 History subcutaneous cartridge cholecalciferol (vitamin D3) 100 2,000 unit PO BID 09/27/24 Unknown History mcg (4,000 unit) capsule naproxen 375 mg tablet 375 mg PO BID PRN pain #20 tabs Unknown Rx Allergy/AdvReac Type Severity Reaction Status Date / Time simvastatin (From Zocor) Allergy Swelling Verified 09/29/24 11:53 Sulfa (Sulfonamide Allergy Swelling Verified 09/29/24 11:53 Antibiotics) Family History Mother Hypertension Lupus Glaucoma Arthritis Neuropathy Brother Diabetes Hypertension Hyperlipemia Surgical History History of esophagogastroduodenoscopy (EGD) Hx of colonoscopy History of esophagogastroduodenoscopy (EGD) History of hysterectomy H/O foot surgery History of hip surgery History of rotator cuff surgery History of left knee surgery h/o left hand surgery Social History household members: other details: daughter housing: house Smoking Status: Former smoker Tobacco: How many years used: 35 alcohol intake: never what type of physical activity do you participate in (more content not included)... [facility] Shoulder min 2 Viewson 09-29 Shoulder min 2 Views [facility] Imaging Services [address] [place], [place] [id number] Shoulder min 2 Views MR#: [id number] Acct: [id number] Name: STEFANIE SIMMONS Rep #: [id number] : 1960 F 64 From: Simeon Hannon PCP: Dr. Zahcary Toney MD Status: PRE ER Study: Shoulder min 2 Views Date of Exam: 09/29/24 Exam# [id number] Ordering Dr: Johanna Cramer DO PROCEDURE: SHOULDER MIN 2 VIEWS REASON FOR EXAM: Pain. Limited range of motion. TECHNIQUE: Four view left shoulder series COMPARISON: None. RAD/Shoulder min 2 Views IMPRESSION: Wgxg-[id number] degenerative changes of the visualized spine. Partially visualized prior cervical surgery. At least moderate left acromioclavicular joint degenerative changes are seen, with associated marked superior osteophytosis, particularly. The presence of at least moderate degenerative changes about the left humeral head greater tuberosity suggest the presence of significant chronic rotator cuff disease. Hoxa-xl-whgdvwsw left glenohumeral joint degenerative changes are seen, without definite joint narrowing. Loose intra-articular bodies project over the anterior left humeral head, likely within the biceps tendon groove. No acute fracture or dislocation is seen. Reading Location: [address] CC: Dr. Johanna Cramer DO; Dr. Zachary Toney MD Machine Installer: Signed [facility] Bedside Glucoseon 09-27-2024 FINGERSTICK GLU 135 mg/dL High 74-106 [facility] Comment on above: Result Comment: ARI GEMENT OF PATIENT CARE PER NURSING PROTOCOL Performed By: #### L 501.080 #### [facility] [address] [facility] [place], [address] Colonoscopy Reporton 025 Colonoscopy Report [facility] Medical Records Department [address] [place] [address] Colonoscopy Report MR#: [id number] Acct: [id number] Name: STEFANIE SIMMONS Rep #: [id number] : 1960 64 From: Felton Brown DO PCP: Dr. Zachary Toney MD Status:[facility] Patient Name: Stefanie Simmons Procedure Date: 09/27/2024 12:10 PM Date of : 1960 Age: 64 Procedure: Colonoscopy Indications: Abdominal pain in the left lower quadrant, Periumbilical abdominal pain Providers: DO Ramez Coley MD: Zachary Toney Medicines: Monitored Anesthesia Care Patient Profile: This is a 64 year old female. Refer to note in patient chart for documentation of history and physical. Last Colonoscopy: 3 years ago. Complications: No immediate complications. Procedure: Pre-Anesthesia Assessment: - Prior to the procedure, a History and Physical was performed, and patient medications and allergies were reviewed. The patient is competent. The risks and benefits of the procedure and the sedation options and risks were discussed with the patient. All questions were answered and informed consent was obtained. Patient identification and proposed procedure were verified by the physician in the pre-procedure area. Mental Status Examination: alert and oriented. Airway Examination: normal oropharyngeal airway and neck mobility. Respiratory Examination: clear to auscultation. CV Examination: normal. Prophylactic Antibiotics: The patient does not require prophylactic antibiotics. Prior Anticoagulants: The patient has taken no anticoagulant or antiplatelet agents except for NSAID medication. ASA Grade Assessment: II - A patient with mild systemic disease. After reviewing the risks and benefits, the patient was deemed in satisfactory condition to undergo the procedure. The anesthesia plan was to use monitored anesthesia care (MAC). Immediately prior to administration of medications, the patient was re-assessed for adequacy to receive sedatives. The heart rate, respiratory rate, oxygen saturations, blood pressure, adequacy of pulmonary ventilation, and response to care were monitored throughout the procedure. The physical status of the patient was re-assessed after the procedure. After I obtained informed consent, the scope was passed under direct vision. Throughout the procedure, the patient's blood pressure, pulse, and oxygen saturations were monitored continuously. The colonoscope was introduced through the anus and advanced to the cecum, identified by appendiceal orifice and ileocecal valve. The colonoscopy was performed without difficulty. The patient tolerated the procedure well. The quality of the bowel preparation was adequate. The ileocecal valve, appendiceal orifice, and rectum were photographed. Scope In: 12:22:17 PM Scope Withdrawal Time 0 hours 5 minutes 47 seconds Scope Out: 12:34:14 PM Total Procedure Duration Time 0 hours 11 minutes 57 seconds Findings: The perianal and digital rectal examinations were normal. Multiple small-mouthed diverticula were found in the recto-sigmoid colon and sigmoid colon. Swelling from recent diverticulitis. The exam was otherwise without abnormality on direct and retroflexion views. Impression: - Diverticulosis in the recto-sigmoid colon and in the sigmoid colon. There was some swelling seen from recent diverticulitis. - The examination was otherwise normal on direct and retroflexion views. - No specimens collected. Recommendation: - Discharge patient to home. - Resume previous diet. - Continue present medications. - Repeat colonoscopy in 5 years for surveillance. Procedure Code(s): --- Professional --- 37089, Colonoscopy, flexible; diagnostic, including collection of specimen(s) by brushing or washing, when performed (separate procedure) CPT copyright 2021 [employer]. All rights reserved. The codes documented in this report are preliminary and upon sign wirer review may be revised to meet current compliance requirements. Felton Brown DO 09/27/2024 12:44:01 PM This report has been signed electronically. Number of Addenda: 0 Note Initiated On: 09/27/2024 12:10 PM 09/27/24 1244 Date Felton Brown DO [facility] Signature: Date (if indicated) CC: Dr. Zachary Toney MD; Felton Brown DO Date Dictated: 09/27/24 1210 Date Transcribed: Machine Installer: IHSAN Signed [facility] [place] [facility]2024 MR/[facility]OP[facility] Medical Records Department [address] [place] [address] Anesthesia Postop Eval I 09/27/24 1244 MR#: [id number] Acct: [id number] Name: STEFANIE SIMMONS Rep #: [id number] : 1960 64 From: Jose G Bush PCP: Dr. Zachary Toney MD Status:REG SDC Y Race: C Location: [place] [address] Anesthesia: Postop Eval I Current Vital Signs Temperature: 97 F Pulse Rate: 68 Blood Pressure: 104/60 Respiratory Rate: 16 Pulse Ox: 96 Oxygen Delivery Method: Nasal Cannula Oxygen Flow Rate (L/min): 2 Assessment Airway patent: Yes Spontaneous unlabored respirations: Yes Mental status: Awake and Calm nausea: No Vomiting: No Anesthesia Complication: No Fluid Hydration Crystalloid volume administer (ml): 40 Total IV fluid infused: 40 Progress Note Anesthesia document: Postop Eval 1 completed: Yes 09/27/24 1245 Date Jose G Lange Signature: Date CC: Signed [facility] MR/[id number] 09-27-2024 MR/POSTOPAN2 [facility] Medical Records Department [address] [place] [address] Anesthesia Postop Eval II 09/27/24 1318 MR#: [id number] Acct: [id number] Name: STEFANIE SIMMONS Rep #: [id number] : 1960 64 From: Peter Elizondo MD PCP: Dr. Zachary Toney MD Status:[facility] Y Race: C Location: EN Anesthesia Postop Eval I Sum Postop Eval Completion status Anesthesia document: Postop Eval 1 completed: Yes Anesthesia Postop Eval I Summary Anesthesia Postop Eval I Summary: Anesthesia Postop Eval I: Assessment Summary Airway patent Yes 09/27/24 12:45 [email or web address] Spontaneous unlabored Yes 09/27/24 12:45 [email or web address] respirations Mental status Awake,Calm 09/27/24 12:45 [email or web address] nausea No 09/27/24 12:45 [email or web address] Vomiting No 09/27/24 12:45 [email or web address] Anesthesia Postop Eval I: Fluid Summary Crystalloid volume administer 40 09/27/24 12:45 [email or web address] (ml) Colloids volume administered ( ml) Blood Product volume administered (ml) Total IV fluid infused 40 09/27/24 12:45 [email or web address] Anesthesia Postop Eval I: Summary Notes Anesthesia Complication No 09/27/24 12:45 [email or web address] Anesthesia Complication Comment: Post-operative progress note Anesthesia: Postop Eval II Evaluation Mental status: Awake Pain Level: 0 nausea: No Vomiting: No Complications Anesthesia Complication: No 09/27/24 1319 Date Peter Elizondo MD Cosigner Signature: Date CC: Signed [facility] MR/POOJA 09-25-2024 MR/PAT.[facility] Medical Records Department [address] [place] [address] PAT - Anesthesia 09/25/24 1608 MR#: [id number] Acct: [id number] Name: STEFANIE SIMMONS Rep #: [id number] : 1960 64 From: Peter Elziondo MD PCP: Dr. Zachary Toney MD [place] [facility] C Location: EN Pre-Assessment Diagnosis/Proposed Procedure Planned Operative Procedure(s): CSCOPE Anesthesia History Anesthesia History - record tester: Anesthesia History - record tester Hx Hospitalization No 09/25/24 14:01 Any Problems With Anesthesia Yes: OCC SLOW TO WAKE/HAD 09/25/24 14:01 SEIZURE WITH ANESTHESIA 2023 Cholinesterase deficiency No 09/25/24 14:01 You/Your Family Experience No 09/25/24 14:01 fever (hyperthermia) with Relationship Recent Exposure to Contagious No 11/04/23 09:09 Disease Does patient have nerve No 09/25/24 14:01 stimulator Patient instructed to have device shut off --Does patient have Pacemaker or ICD? When Was Last Pacemaker Check QUESTION #4 FULL TEXT: You/Your Family Experience fever (hyperthermia) with Anesthesia Last Oral Intake Last Oral intake: Last Oral Intake NPO since Meds taken in AM with sips of water? 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 - record tester: PONV - record tester Female Yes 09/25/24 14:01 HX of Motion Sickness No 09/25/24 14:01 HX of N/V After Surgery No 09/25/24 14:01 Non-Smoker Yes 09/25/24 14:01 Duration of Surgery greater No 09/25/24 14:01 than 60 minutes Number of Risk Factors 2 09/25/24 14:01 PONV Score Moderate Risk 09/25/24 14:01 Height Weight Height Weight: Anesthesia: Height Weight Height 5 ft 3 in 05/29/24 01:30 Respiratory Assessment Respiratory Assessment - record tester: Respiratory Tract Infection Hx - record tester Hx Respiratory Tract Infection No 09/25/24 14:01 STOP Sleep Apnea STOP Sleep Apnea - record tester: STOP Sleep Apnea - record tester Hx Hypertension Yes: CONTROLLED WITH MED 09/25/24 14:01 Hx Sleep Apnea Yes 09/25/24 14:01 CPAP Yes: NONCOMPLIANT 09/25/24 14:01 BIPAP No 09/25/24 14:01 Do you snore loudly (louder than talking or can be heard Do you often feel tired/ fatigued/ sleepy during daytime? Has anyone observed you stop breathing during sleep? STOP Results Positive 09/25/24 14:01 QUESTION #5 FULL TEXT : Do you snore loudly (louder than talking or can be heard through closed doors)? 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 Specify any problems Hx of Preganancy in last 3 No 09/25/24 14:01 Months Nurse Filling Out Transfusion DSCHRIBER 09/25/24 14:01 Questions: Date: 09/25/24 09/25/24 14:01 Time: 14:03 09/25/24 14:01 Patient unable to answer at this time (ie. confused, unrespo /Reproduction History /Reproductive History - record tester: /Reproductive Hx- record tester Hx Now No 09/25/24 14:01 Gestational Age (in weeks): EDC: Hx Hx Para Hx Section SAB No 09/25/24 14:01 [facility] Medical History (Updated 09/25/24 @ 14:06 by Florence Piedra) Insulin dependent diabetes mellitus Ambulates with cane History of renal disease GERD (gastroesophageal reflux disease) Obesity Presence of pessary Presence of insulin pump Gastroparesis Diabetes Wears glasses Wears dentures Depression Anxiety Marijuana use Thyroid disease Arthritis Fatty liver High cholesterol Restless legs Injury of head and neck Dietary restriction History of hiatal hernia Former smoker Leg cramps History of edema History of stress test Cardiology follow-up encounter Diarrhea Nausea vomiting Abdominal pain Diarrhea Nausea Acute right flank pain Acute hypokalemia Hyperlipidemia HTN (hypertension) Home Medications ???Medication ???Instructions ???Recorded ???Last Taken ? (more content not included)... [facility] Endocrinology Visit Reporton 08-02-2024 Endocrinology Visit Report [facility] [address] [facility] [place] [address] OFFICE VISIT Date of Service: 08/02/24 MR#: [id number] Acct: [id number] Name: STEFANIE SIMMONS Rep #: [id number] : 1960 Provider: SIMA lira Age/Sex: 64/F [place] [facility] Status: Signed Intake Vital Signs 05/03/24 10:14 05/29/24 01:30 08/02/24 10:36 Height 5 ft 3 in 5 ft 3 in 5 ft 3 in Weight: 169 lb BMI 29.9 BP 106/62 Blood Pressure Location Lt brachial Position Sitting Pulse 74 Pulse Source Monitor Pulse Oximetry (%) 94 Oxygen Delivery Method room air Intake Visit Reasons: 3 M FU Chief Complaint: f/u diabetes Featherer Required: No Accompanied by: Self Is patient in pain?: Yes (Abdomen) Pain scale (1-10): 3 Allergies simvastatin (From Zocor) Allergy (Verified 08/02/24 10:38) Swelling Sulfa (Sulfonamide Antibiotics) Allergy (Verified 08/02/24 10:38) Swelling Medications ???Medication ???Instructions ???Recorded ???Confirmed ???Type lisinopril 20 1 tab PO DAILY bp 09/22/19 08/02/24 History mg-hydrochlorothiazide 12.5 mg tablet sertraline 100 mg tablet 100 mg PO DAILY depression 09/22/19 08/02/24 History pen needle, diabetic 32 gauge x #150 ea 08/01/21 08/02/24 Rx (BD Ultra-Fine Sheri Pen Needle) omeprazole 40 mg capsule,delayed 40 mg PO DAILY gerd 12/09/21 08/02/24 History release trazodone 100 mg tablet 100 mg PO QHS insomnia 12/09/21 08/02/24 History gabapentin 300 mg capsule 300 mg PO BID pain 12/17/22 08/02/24 History blood sugar diagnostic (OneTouch #100 ea 03/11/23 08/02/24 Rx Ultra Test strips) linaclotide 72 mcg capsule 72 mcg PO DAILY #90 caps 09/24/23 08/02/24 Rx (Linzess) gabapentin 300 mg capsule 900 mg PO QHS 11/02/23 08/02/24 History insulin lispro 100 unit/mL 100 unit subcut DAILY #30 mL 04/28/24 08/02/24 Rx subcutaneous solution (Humalog U-100 Insulin) atorvastatin 40 mg tablet 40 mg PO QDAY 05/03/24 08/02/24 History blood-glucose sensor (CytRxcom G7 #9 ea 05/03/24 08/02/24 Rx Sensor device) empagliflozin 25 mg tablet 25 mg PO QAM #30 tabs 05/03/24 08/02/24 Rx (Jardiance) mirabegron 50 mg tablet,extended 50 mg PO QDAY 05/03/24 08/02/24 History release 24 hr (Myrbetriq) hyoscyamine sulfate 0.125 mg tablet 0.125 mg PO BID-QID PRN for 05/16/24 08/02/24 Rx indigestion #120 TABLETS blood sugar diagnostic (Accu-Chek #100 ea 05/24/24 08/02/24 Rx Guide test strips) estradiol 0.01% (0.1 mg/gram) 1 appful vaginal QWEEK 05/29/24 08/02/24 History vaginal cream dicyclomine 10 mg capsule 10 mg PO TID PRN for abdominal 05/30/24 08/02/24 Rx pain #90 caps insulin degludec 100 unit/mL (3 20 unit (0.2 mL) subcut QHS #15 mL 06/27/24 08/02/24 Rx mL) subcutaneous pen (Tresiba FlexTouch U-100 insulin) pen needle, diabetic 32 gauge x #50 ea 06/27/24 08/02/24 Rx 5/32 (BD Ultra-Fine Sheri Pen Needle) lubiprostone 8 mcg capsule 8 mcg PO BID #60 caps 07/24/24 08/02/24 Rx (Amitiza) [facility] Medical History (Updated 08/02/24 @ 12:16 by SIMA Hunt) Insulin dependent diabetes mellitus Ambulates with cane History of renal disease Sleep apnea GERD (gastroesophageal reflux disease) Obesity Presence of pessary Presence of insulin pump Gastroparesis Diabetes Wears glasses Wears dentures Depression Anxiety Marijuana use Thyroid disease Arthritis Fatty liver High cholesterol Restless legs Injury of head and neck Dietary restriction History of hiatal hernia Gastric reflux Former smoker Leg cramps History of edema History of stress test Cardiology follow-up encounter Diarrhea Nausea vomiting Abdominal pain Diarrhea Nausea Bacteriuria Acute right flank pain Acute hypokalemia Hyperlipidemia HTN (hypertension) Surgical History History of esophagogastroduodenoscopy (EGD) Hx of colonoscopy History of esophagogastroduodenoscopy (EGD) History of hysterectomy H/O foot surgery History of hip surgery History of rotator cuff surgery History of left knee surgery h/o left hand surgery Family History Mother Hypertension Lupus Glaucoma Arthritis Neuropathy Brother Diabetes Hypertension Hyperlipemia Social History household members: other details: daughter housing: house Smoking Status: Current every day smoker tobacco type: cigarettes Tobacco: How many years used: 35 alcohol intake: never what type of physical activity do you participate in: none do you feel safe at home: Yes HPI HPI Chief Complaint: f/u diabetes Details: STEFANIE SIMMONS, is a 64 F who presents to (more content not included)... Normal [facility] Gastroenterology Visit Repor ton 07-24-2024 Gastroenterology Visit Report [facility] Gastroenterology [address] [place] [address] OFFICE VISIT Date of Service: 07/24/24 MR#: [id number] Acct: [id number] Name: STEFANIE SIMMONS Rep #: [id number] : 1960 Provider: Felton Brown DO Age/Sex: 64/F Location: [facility] [place] Status: Signed Intake Vital Signs 12/17/23 13:43 05/29/24 01:30 Height 5 ft 3 in 5 ft 3 in Intake Visit Reasons: 6 M FU Chief Complaint: f/u diabetes Allergies simvastatin (From Zocor) Allergy (Verified 05/29/24 01:30) Swelling Sulfa (Sulfonamide Antibiotics) Allergy (Verified 05/29/24 01:30) Swelling Medications ???Medication ???Instructions ???Recorded ???Confirmed ???Type lisinopril 20 1 tab PO DAILY bp 09/22/19 07/24/24 History mg-hydrochlorothiazide 12.5 mg tablet sertraline 100 mg tablet 100 mg PO DAILY depression 09/22/19 07/24/24 History pen needle, diabetic 32 gauge x #150 ea 08/01/21 05/03/24 Rx (BD Ultra-Fine Sheri Pen Needle) omeprazole 40 mg capsule,delayed 40 mg PO DAILY gerd 12/09/21 07/24/24 History release trazodone 100 mg tablet 100 mg PO QHS insomnia 12/09/21 07/24/24 History gabapentin 300 mg capsule 300 mg PO BID pain 12/17/22 07/24/24 History blood sugar diagnostic (OneTouch #100 ea 03/11/23 05/03/24 Rx Ultra Test strips) linaclotide 72 mcg capsule 72 mcg PO DAILY #90 caps 09/24/23 07/24/24 Rx (Linzess) gabapentin 300 mg capsule 900 mg PO QHS 11/02/23 07/24/24 History insulin lispro 100 unit/mL 100 unit subcut DAILY #30 mL 04/28/24 07/24/24 Rx subcutaneous solution (Humalog U-100 Insulin) atorvastatin 40 mg tablet 40 mg PO QDAY 05/03/24 07/24/24 History blood-glucose sensor (Dexcom G7 #9 ea 05/03/24 05/03/24 Rx Sensor device) empagliflozin 25 mg tablet 25 mg PO QAM #30 tabs 05/03/24 07/24/24 Rx (Jardiance) mirabegron 50 mg tablet,extended 50 mg PO QDAY 05/03/24 07/24/24 History release 24 hr (Myrbetriq) hyoscyamine sulfate 0.125 mg tablet 0.125 mg PO BID-QID PRN for 05/16/24 07/24/24 Rx indigestion #120 TABLETS blood sugar diagnostic (Accu-Chek #100 ea 05/24/24 Rx Guide test strips) estradiol 0.01% (0.1 mg/gram) 1 appful vaginal QWEEK 05/29/24 07/24/24 History vaginal cream dicyclomine 10 mg capsule 10 mg PO TID PRN for abdominal 05/30/24 07/24/24 Rx pain #90 caps insulin degludec 100 unit/mL (3 20 unit (0.2 mL) subcut QHS #15 mL 06/27/24 07/24/24 Rx mL) subcutaneous pen (Tresiba FlexTouch U-100 insulin) pen needle, diabetic 32 gauge x #50 ea 06/27/24 Rx /32 (BD Ultra-Fine Sheri Pen Needle) lubiprostone 8 mcg capsule 8 mcg PO BID #60 caps 07/24/24 07/24/24 Rx (Amitiza) PFSH Medical History Insulin dependent diabetes mellitus Ambulates with cane History of renal disease Sleep apnea GERD (gastroesophageal reflux disease) Obesity Presence of pessary Presence of insulin pump Gastroparesis Diabetes Wears glasses Wears dentures Depression Anxiety Marijuana use Thyroid disease Arthritis Fatty liver High cholesterol Restless legs Injury of head and neck Dietary restriction History of hiatal hernia Gastric reflux Former smoker Leg cramps History of edema History of stress test Cardiology follow-up encounter Diarrhea Nausea vomiting Abdominal pain Diarrhea Nausea Bacteriuria Acute right flank pain Acute hypokalemia Hyperlipidemia HTN (hypertension) Surgical History History of esophagogastroduodenoscopy (EGD) Hx of colonoscopy History of esophagogastroduodenoscopy (EGD) History of hysterectomy H/O foot surgery History of hip surgery History of rotator cuff surgery History of left knee surgery h/o left hand surgery Family History Mother Hypertension Lupus Glaucoma Arthritis Neuropathy Brother Diabetes Hypertension Hyperlipemia Social History household members: other details: daughter housing: house Smoking Status: Current every day smoker tobacco type: cigarettes Tobacco: How many years used: 35 alcohol intake: never what type of physical activity do you participate in: none do you feel safe at home: Yes HPI HPI Chief Complaint: f/u diabetes Details: STEFANIE SIMMONS, is a 64 F who presents to the office today for follow up. IESHA SIMMONS, is a 63 F who presents to the office today for follow up. Prior workup: ? CT abd/pel 05.08.21 adrenal adenoma *BGI established 05.22.21 with abdominal pain, N/V, early satiety and intermittent loose stools. Notes weight loss of 200lbs over 2 years through caloric monitoring; she then dev (more content not included)... Normal [facility] MRI BRAIN WO IVCONon 024 MRI BRAIN WO IVCON * * *Final Report* * * DATE OF EXAM: Mar 10 2024 11:48AM AKM [id number] - MRI BRAIN WO IVCON / PROCEDURE REASON: Convulsions, unspecified convulsion type (HCC) * * * * Physician Interpretation * * * * EXAMINATION: MRI BRAIN WO IVCON CLINICAL HISTORY: Convulsions TECHNIQUE: Epilepsy noncontrast MRI protocol including diffusion images. MQ: [id number] COMPARISON: CT brain from 11/05/2023. RESULT: Acute Change: There is no evidence of restricted diffusion to suggest an acute infarct. Hemorrhage: No evidence of prior parenchymal hemorrhage on the gradient echo images. Mass Lesion/ Mass Effect: No evidence of an intracranial mass or extra-axial fluid collection. No significant mass effect. Chronic Change: The white matter is within normal limits of signal intensity for age. Parenchyma: Hippocampal formations are symmetric in morphology and signal but it did lower limits of volume. Sulcation pattern is grossly normal. Massey-white differentiation is normal. No evidence of heterotopic massey matter. There is moderate generalized parenchymal volume loss. The brain parenchyma is otherwise within normal limits of signal intensity and morphology. Ventricles: Ventriculomegaly corresponds to the degree of parenchymal volume loss. Skull Base: Hypothalamic and pituitary region are grossly normal. Craniocervical junction is normal. No significant marrow replacement process. Vasculature: Major intracranial arterial structures, and dural venous sinuses show typical flow void, suggesting patency by spin echo criteria. Other: The visualized paranasal sinuses and mastoid air cells are clear. The orbits and extracranial soft tissues are unremarkable. IMPRESSION: No focal parenchymal abnormality to suggest a seizure focus. Stable moderate volume loss and chronic mild chronic small vessel ischemic changes in the brain. Machine Installer: [facility] Transcribe Date/Time: Mar 12 2024 3:49P Dictated by : LAURA STARK MD This examination was interpreted and the report reviewed and electronically signed by: LAURA STARK MD on Mar 12 2024 3:51PM EST [id number] Normal [facility] STREP A MOLECULAR (POC)on Interpretation and review of laboratory results Abnormal [facility] Procedural Control Valid [facility] Strep A (POCT) Positive Abnormal Negative [facility] CNOVon 11-24-2023 CNOV Office Visit (NEEPBA ) STEFANIE SIMMONS ([id number]) 1960 [facility] Date Time Provider Department 11/24/23 9:00 AM SEBASTIÁN ANTOINE During your visit today, we recorded the following information about you: Pulse Respiration Blood pressure Weight 82/minute 18/minute 138/80 81.7 kg Sebastián Antoine MD 11/24/2023 9:32 AM Addendum Summary of the things we discussed today: You had a single seizure in the setting of a procedure. Your EEG test is normal. I will get an MRI of your brain. At this time, we will monitor for seizure recurrence without starting seizure medications. No other epilepsy risk factors are noted at this time. Monitor for recurrence of seizure, episodes of unexplained loss of consciousness, episodes of confusion, behavioral arrest. Seizure precautions - No driving in the [facility] until seizure free for 6 months. Please check with local state authorities for state specific driving regulations. - No operating heavy machines - No swimming without supervision or bathing in a bathtub due to risk of drowning in the event of a seizure. Patient may shower. - Avoid unsafe heights, including ladders, due to risk of fall-related injury in the event of a seizure. - Seizure precipitating factors discussed including not taking seizure medications as prescribed, stress, excessive caffeine intake, energy drinks, alcohol, sleep deprivation or any identifiable seizure precipitating factor. Sebastián Antoine MD Associate Staff, Epilepsy [facility] November 24, 2023 Office phone: [phone] Sebastián Antoine MD 11/24/2023 9:48 AM Signed [facility] Patient Name: Stefanie EASTON Date of : 1960 Referring Provider: Zachary Toney [address] [facility] [place] [address] INITIAL EPILEPSY CLINIC NOTE 11/24/2023 9:00 AM CHIEF COMPLAINT: Seizures (Sz during colonoscopy/egd, lightheaded/dizzy, feels like she's going to pass out. ) and New Patient HISTORY OF PRESENT ILLNESS Ms. Simmons is a 63 year old left-handed female seen in [facility] for initial consultation. There is no one accompanying the patient during today's visit. Handedness: left-handed Sister is Left handed Age of onset: Seizure History and Evolution Ms. Stefanie Simmons is a 63 year old Left handed woman with h/o Diabetes, Neuropathy, HTN. She had a single convulsive episode during colonoscopy in October 2023. From available records from [facility], 5 mins into the procedure, she had a seizure. No description was available but pt was told she had convulsive activity while on Propofol. Blood glucose was 144. Initially planned to send her to ED for work up but then decided to send her home as she recovered well. She had no subsequent seizures. Outpatient work up including 20 min EEG was normal. CT head showed chronic ischemic findings, no acute process. No major epilepsy risk factors. Never had seizure before. No episodes of behavioral arrest, unexplained LOC ( she had LOC a few years ago due to fluctuating blood sugars). She may have difficulty remembering directions while driving, would take a minute to recognize where she is. Long standing reports of chest flutter sensation which makes her feel dizzy. She is in the process of getting an Echocardiogram. She is on gabapentin (300-300-900) for neuropathy and RLS. She did take her night time dose of 900 mg the day prior to procedure. Born via breach presentation. 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 Prior Anti-seizure Therapies: Trial Adequacy: Max Daily Dose Achieved: Side Effects: Effectiveness: Comments: Comorbidities: Episode Description: Patient Entered Data: EPILEPSY SCORE No Data PHQ-9 SCORE - JASEPR 2 SCORE - JASPER 7 SCORE - QOLIE-10 SCORE (0=worst; 100=best QoL - higher scores represent better function) - LSSS SCORE (0- no seizures 100- most severe possible seizures) - C-SSRS SCREEN - On average, how many hours of sleep do you get in a 24-hour period? - PROMIS Sleep Disturbance T-SCORE - Have you been diagnosed with Sleep Apnea? 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 Normal [facility] CT Head WO contraston 2023 [facility] Thin prep Papanicolaou smear with manual screeningOrdered By: Felton Brown on 11-04-2023 Thin prep Papanicolaou smear with manual screening 144 mg/dL 74-106 [facility] Comment on above: MANAGEMENT OF PATIEN T CARE PER NURSING PROTOCOL Laboratory - Hematology and Cell countson 11-03-2023 HbA1c (Bld) [Mass fraction] 7.1 % [facility] Basophil percentageOrdered B y: Christa Villarreal on 08-04-2023 Basophil percentage 50-100 SEEN /hpf 0-5 [facility] Bilirubin Test strip Ql (U)O rdered By: Christa Villarreal on 08-04-2023 Bilirubin Ql (U) Negative Negative [facility] Culture, urineOrdered By: Me ubaldo Villarreal on 08-04-2023 Bacteria identified Cx Nom (U) Klebsiella pneumoniae sp pneum [facility] Ketones Test strip Ql (U)Ord ered By: Christa Villarreal on 08-04-2023 Ketones Ql (U) 5 mg/dl Negative [facility] Mucus LM Ql (Urine sed)Order ed By: Christa Villarreal on 08-04-2023 Mucus Ql (Urine sed) RARE /hpf [facility] Nitrite Test strip Ql (U)Ord ered By: Christa Villarreal on 08-04-2023 Nitrite Ql (U) Negative Negative [facility] Protein Test strip Ql (U)Ord ered By: Christa Villarreal on 08-04-2023 Protein Ql (U) 30 mg/dl Negative [facility] Squamous epithelial cells de tection in urine sediment by light microscopyOrdered By: Christa Villarreal on 08-04-2023 Epithelial cells.squamous LM Ql (Urine sed) 0-5 SEEN /hpf 5-10 [facility] Urine blood detectionOrdered By: Christa Villarreal on 08-04-2023 RBC Ql (U) 50 /ul Negative [facility] RBC Ql (U) 0-5 SEEN /hpf 0-5 [facility] Urine clarityOrdered By: Mattie Villarreal on 08-04-2023 Clarity (U) Cloudy Clear [facility] Urine color determinationOrd ered By: Christa Villarreal on 08-04-2023 Color (U) Yellow Yellow [facility] Urine glucose detectionOrder ed By: Christa Villarreal on 08-04-2023 Glucose Ql (U) Normal mg/dl Normal [facility] Urine leukocyte esterase det ection by dipstickOrdered By: Christa Villarreal on 08-04-2023 Leukocyte esterase Test strip Ql (U) 500 /ul Negative [facility] Urine pHOrdered By: Christa rodriguez on 08-04-2023 pH (U) 5.0 [pH] 5.0 - 8.0 [facility] Urine sediment bacteria coun t by microscopy (number/high power field)Ordered By: Christa Villarreal on 08-04-2023 Bacteria LM.HPF (Urine sed) [#/Area] 4 /[HPF] None Seen [facility] Urine specific gravity measu rementOrdered By: Christa Villarreal on 08-04-2023 Specific gravity (U) [Rel density] 1.020 1.002-1.030 [facility] Urobilinogen Auto test strip Ql (U)Ordered By: Christa Villarreal on 08-04-2023 Urobilinogen Ql (U) Normal mg/dl Normal [facility] Basophil percentageOrdered B y: Christa Villarreal on 06-24-2023 Basophil percentage 50-100 SEEN /hpf 0-5 [facility] Bilirubin Test strip Ql (U)O rdered By: Christa Villarreal on 06-24-2023 Bilirubin Ql (U) Negative Negative [facility] Culture, urineOrdered By: Me ubaldo Villarreal on 06-24-2023 Bacteria identified Cx Nom (U) Mixed Gram Pos & Gram Neg Org [facility] Ketones Test strip Ql (U)Ord ered By: Christa Villarreal on 06-24-2023 Ketones Ql (U) Negative Negative [facility] Laboratory - Hematology and Cell countson 06-24-2023 HbA1c (Bld) [Mass fraction] 14.5 % 4.2-6.3 [facility] Mucus LM Ql (Urine sed)Order ed By: Christa Villarreal on 06-24-2023 Mucus Ql (Urine sed) 0 SEEN /hpf [facility] Nitrite Test strip Ql (U)Ord ered By: Christa Villarreal on 06-24-2023 Nitrite Ql (U) Negative Negative [facility] Protein Test strip Ql (U)Ord ered By: Christa Villarreal on 06-24-2023 Protein Ql (U) 30 mg/dl Negative [facility] Squamous epithelial cells de tection in urine sediment by light microscopyOrdered By: Christa Villarreal on 06-24-2023 Epithelial cells.squamous LM Ql (Urine sed) 0-5 SEEN /hpf 5-10 [facility] Urine blood detectionOrdered By: Christa Villarreal on 06-24-2023 RBC Ql (U) 25 /ul Negative [facility] RBC Ql (U) 0 SEEN /hpf 0-5 [facility] Urine clarityOrdered By: Mattie Villarreal on 06-24-2023 Clarity (U) Clear Clear [facility] Urine color determinationOrd ered By: Christa Villarreal on 06-24-2023 Color (U) Yellow Yellow [facility] Urine glucose detectionOrder ed By: Christa Villarreal on 06-24-2023 Glucose Ql (U) Normal mg/dl Normal [facility] Urine leukocyte esterase det ection by dipstickOrdered By: Christa Villarreal on 06-24-2023 Leukocyte esterase Test strip Ql (U) 500 /ul Negative [facility] Urine pHOrdered By: Christa rodriguez on 06-24-2023 pH (U) 5.0 [pH] 5.0 - 8.0 [facility] Urine sediment bacteria coun t by microscopy (number/high power field)Ordered By: Christa Villarreal on 06-24-2023 Bacteria LM.HPF (Urine sed) [#/Area] 1 /[HPF] None Seen [facility] Urine specific gravity measu rementOrdered By: Christa Villarreal on 06-24-2023 Specific gravity (U) [Rel density] 1.015 1.002-1.030 [facility] Urobilinogen Auto test strip Ql (U)Ordered By: Christa Villarreal on 06-24-2023 Urobilinogen Ql (U) Normal mg/dl Normal [facility] Absolute lymphocyte countOrd ered By: Brett Morgan on 05-05-2023 Lymphocytes Auto (Unsp spec) [#/Vol] 1.15 10*3/uL 0.83-4.51 [facility] Basophil percentageOrdered B y: Brett Morgan on 05-05-2023 Basophil percentage 0 SEEN /hpf 0-5 [facility] Basophils/100 WBC (Bld) 0.8 % 0-1 [facility] Bilirubin [Mass/Vol] 0.50 mg/dL 0.20-1.00 [facility] Comment on above: For patients on eltr ombopag therapy, use of Dimension [place] TBIL is not recommended. Chloride [Moles/Vol] 95 mmol/L 98-107 [facility] Eosinophils/100 WBC (Bld) 0.3 % 0-5 [facility] Glucose [Mass/Vol] 398 mg/dL 74-106 [facility] Comment on above: Glucose result great er than or equal to 200 mg/dLsuggests DIABETES MELLITUS per A.D.A. criteria. Neutrophils (Bld) [#/Vol] 7.5 10*3/uL 2.0-7.7 [facility] Neutrophils/100 WBC (Bld) 80.4 % 47-70 [facility] Potassium [Moles/Vol] 3.9 mmol/L 3.5-5.1 [facility] Protein [Mass/Vol] 7.1 g/dL 6.4-8.2 [facility] Sodium [Moles/Vol] 130 mmol/L 136-145 [facility] WBC (Bld) [#/Vol] 9.3 10*3/uL 4.4-11.0 [facility] Bilirubin Test strip Ql (U)O rdered By: Brett Morgan on 05-05-2023 Bilirubin Ql (U) Negative Negative [facility] Blood erythrocytes count (nu mber/volume)Ordered By: Brett Morgan on 05-05-2023 RBC (Bld) [#/Vol] 5.18 10*6/uL 4.2-5.4 [facility] Blood hemoglobin measurement (mass/volume)Ordered By: Brett Morgan on 05-05-2023 Hemoglobin (Bld) [Mass/Vol] 14.3 g/dL 12.0-15.0 [facility] Blood lymphocytes/100 leukoc ytesOrdered By: Brett Morgan on 05-05-2023 Lymphocytes/100 WBC (Bld) 12.3 % 19-41 [facility] Blood monocytes/100 leukocyt esOrdered By: Brett Morgan on 05-05-2023 Monocytes/100 WBC (Bld) 5.8 % 0-10 [facility] Blood platelet mean volumeOr dered By: Brett Morgan on 05-05-2023 Platelet mean volume (Bld) [Entitic vol] 10.7 fL 6.2-12.0 [facility] Determination of erythrocyte mean corpuscular volume (MCV)Ordered By: Brett Morgan on 05-05-2023 MCV (RBC) [Entitic vol] 83.6 fL 81-99 [facility] Hematocrit Auto (Bld) [Volum e fraction]Ordered By: Brett Morgan on 05-05-2023 Hematocrit (Bld) [Volume fraction] 43.3 % 37-47 [facility] Ketones Test strip Ql (U)Ord ered By: Brett Morgan on 05-05-2023 Ketones Ql (U) 50 mg/dl Negative [facility] Laboratory - Chemistry and C hemistry - challengeOrdered By: Brett Morgan on 05-05-2023 ALP [Catalytic activity/Vol] 144 U/L 45-117 [facility] ALT [Catalytic activity/Vol] 21 U/L 13-56 [facility] CO2 [Moles/Vol] 24.0 mmol/L 21.0-32.0 [facility] Globulin (S) [Mass/Vol] 3.4 g/dL 2.2-4.2 [facility] Lipase [Catalytic activity/Vol] 29 U/L 13-75 [facility] Comment on above: Please note:LIPASE r evised reference range effective 22. New Lipase methodology. Expected to produce lower values than the previous assay method. NEW Reference Range: 13 - 75 U/L Urea nitrogen/Creatinine [Mass ratio] 15.3 mg/mg 10-20 [facility] Laboratory - Hematology and Cell countsOrdered By: Brett Morgan on 05-05-2023 Erythrocyte distribution width (RBC) [Entitic vol] 41.0 fL 35.1-43.9 [facility] Erythrocyte distribution width (RBC) [Ratio] 13.2 % 11.6-14.6 [facility] Immature granulocytes/100 WBC (Bld) 0.400 % 0.0-0.9 [facility] Comment on above: IG% - Immature Granu locytes (promyelocytes, myelocytes and metamyelocytes) > 1% indicates that a LEFT SHIFT is Present. MCH (RBC) [Entitic mass] 27.6 pg 27.0-32.0 [facility] Nucleated RBC/100 WBC (Bld) [Ratio] 0 % 0-5 [facility] MCHC Auto (RBC) [Mass/Vol]Or dered By: Brett Morgan on 05-05-2023 MCHC (RBC) [Mass/Vol] 33.0 g/dL 32-36 [facility] Mucus LM Ql (Urine sed)Order ed By: Brett Morgan on 05-05-2023 Mucus Ql (Urine sed) 0 SEEN /hpf [facility] Nitrite Test strip Ql (U)Ord ered By: Brett Morgan on 05-05-2023 Nitrite Ql (U) Negative Negative [facility] No Panel InformationOrdered By: Brett Morgan on 05-05-2023 Estimated Creatinine Clearance Calc 41.94 ml/min [facility] Estimated GFR (MDRD) Amer 60 mL/min >60 [facility] Comment on above: GFR Calc Estimated GFR (MDRD) Non-Af Amer 50 mL/min >60 [facility] Comment on above: Non- GFR Calc Platelets bldOrdered By: Raysa Morgan on 05-05-2023 Platelets (Bld) [#/Vol] 274 10*3/uL 150-450 [facility] Protein Test strip Ql (U)Ord ered By: Brett Morgan on 05-05-2023 Protein Ql (U) 15 mg/dl Negative [facility] Serum or plasma albumin nelia urement (mass/volume)Ordered By: Brett Morgan on 05-05-2023 Albumin [Mass/Vol] 3.7 g/dL 3.2-5.0 [facility] Serum or plasma albumin/glob ulin mass ratioOrdered By: Brett Morgan on 05-05-2023 Albumin/Globulin [Mass ratio] 1.1 {ratio} 0.9-2.4 [facility] Serum or plasma calcium nelia urement (mass/volume)Ordered By: Brett Morgan on 05-05-2023 Calcium [Mass/Vol] 9.3 mg/dL 8.5-10.1 [facility] Serum or plasma creatinine m easurement (mass/volume)Ordered By: Brett Morgan on 05-05-2023 Creatinine [Mass/Vol] 1.18 mg/dL 0.55-1.02 [facility] Comment on above: The validity of the calculated GFR & GFRAA in patients over 70 years has not been determined. Clinical correlation is essential. Serum or plasma urea nitroge n measurement (mass/volume)Ordered By: Brett Morgan on 05-05-2023 Urea nitrogen [Mass/Vol] 18 mg/dL 7-18 [facility] Squamous epithelial cells de tection in urine sediment by light microscopyOrdered By: Brett Morgan on 05-05-2023 Epithelial cells.squamous LM Ql (Urine sed) 0-5 SEEN /hpf 5-10 [facility] Thin prep Papanicolaou smear with manual screeningOrdered By: Brett Morgan on 05-05-2023 Thin prep Papanicolaou smear with manual screening 16 U/L 15-37 [facility] Thin prep Papanicolaou smear with manual screening 11 5-15 [facility] Urine blood detectionOrdered By: Brett Morgan on 05-05-2023 RBC Ql (U) Negative Negative [facility] RBC Ql (U) 0-5 SEEN /hpf 0-5 [facility] Urine clarityOrdered By: Raysa Morgan on 05-05-2023 Clarity (U) Clear Clear [facility] Urine color determinationOrd ered By: Brett Morgan on 05-05-2023 Color (U) Yellow Yellow [facility] Urine glucose detectionOrder ed By: Brett Morgan on 05-05-2023 Glucose Ql (U) 1000 mg/dl Normal [facility] Urine leukocyte esterase det ection by dipstickOrdered By: Brett Morgan on 05-05-2023 Leukocyte esterase Test strip Ql (U) 25 /ul Negative [facility] Urine pHOrdered By: Brett burdick on 05-05-2023 pH (U) 6.0 [pH] 5.0 - 8.0 [facility] Urine sediment bacteria coun t by microscopy (number/high power field)Ordered By: Brett Morgan on 05-05-2023 Bacteria LM.HPF (Urine sed) [#/Area] 0 /[HPF] None Seen [facility] Urine specific gravity measu rementOrdered By: Brett Morgan on 05-05-2023 Specific gravity (U) [Rel density] 1.015 1.002-1.030 [facility] Urobilinogen Auto test strip Ql (U)Ordered By: Brett Morgan on 05-05-2023 Urobilinogen Ql (U) Normal mg/dl Normal [facility] ALBUMIN/CREAT RATIO RND URon 12-18-2022 ALBUMIN/CREATININE RATIO 8.7 mg/g 0 - 30 mg/g [facility] Basophil percentageOrdered B y: Christa Villarreal on 12-18-2022 Bilirubin [Mass/Vol] 0.30 mg/dL 0.20-1.00 [facility] Comment on above: For patients on eltr ombopag therapy, use of Dimension [place] TBIL is not recommended. Chloride [Moles/Vol] 111 mmol/L 98-107 [facility] Cholesterol [Mass/Vol] 144 mg/dL 0 - 200 MG/DL [facility] Comment on above: <200 mg/dL Desirable 200-240 mg/dL Borderline >240 mg/dL High Risk Glucose [Mass/Vol] 150 mg/dL 74-106 [facility] Comment on above: Fasting Glucose resu lt greater than or equal to 126 mg/dL suggests DIABETES MELLITUS per A.D.A. criteria. Potassium [Moles/Vol] 3.8 mmol/L 3.5-5.1 [facility] Protein [Mass/Vol] 6.6 g/dL 6.4-8.2 [facility] Sodium [Moles/Vol] 139 mmol/L 136-145 [facility] Triglyceride [Mass/Vol] 105 mg/dL 149 mg/dL [facility] Comment on above: The drugs N-Acetylcy steine and Metamizole may falsely depress this assay.Serum Triglycerides Reference Interval Normal <150 mg/dL Borderline high 150 - 199 mg/dL High 200 - 499 mg/dL Very High > or = 500 mg/dL LIPID PANEL (EXTERNAL)on HDC-L 57 mg/dL Abnormal 41 mg/dL [facility] LDL Chol, calculated 66 MG/DL 130 MG/DL [facility] - Chemistry and C hemistry - challengeOrdered By: Christa Villarreal on 12-18-2022 ALP [Catalytic activity/Vol] 117 U/L 45-117 [facility] ALT [Catalytic activity/Vol] 19 U/L 13-56 [facility] CO2 [Moles/Vol] 23.0 mmol/L 21.0-32.0 [facility] Globulin (S) [Mass/Vol] 3.2 g/dL 2.2-4.2 [facility] Urea nitrogen/Creatinine [Mass ratio] 21.4 mg/mg 10-20 [facility] No Panel InformationOrdered By: Christa Villarreal on 12-18-2022 Estimated GFR (MDRD) Amer 83 mL/min >60 [facility] Comment on above: GFR Calc Estimated GFR (MDRD) Non-Af Amer 69 mL/min >60 [facility] Comment on above: Non- GFR Calc Thyroid Stimulating Hormone (TSH) 0.91 uIU/mL 0.358-3.74 [facility] Urine Microalbumin/Creatini ne Ratio 8.7 mg/g CRE <30 [facility] Vitamin D 25-Hydroxy 26.4 ng/mL [facility] Comment on above: Vitamin D 25(OH) Sta tus Range Deficiency <20 ng/mL (50nmol/L) Insufficiency 20 - 30 ng/mL (50 - 75 nmol/L) Sufficiency 30 - 100 ng/mL (75 - 250 nmol/L) Toxicity >100 ng/mL (>250 nmol/L) Serum or plasma albumin nelia urement (mass/volume)Ordered By: Christa Villarreal on 12-18-2022 Albumin [Mass/Vol] 3.4 g/dL 3.2-5.0 [facility] Serum or plasma albumin/glob ulin mass ratioOrdered By: Christa Villarreal on 12-18-2022 Albumin/Globulin [Mass ratio] 1.1 {ratio} 0.9-2.4 [facility] Serum or plasma calcium nelia urement (mass/volume)Ordered By: Christa Villarreal on 12-18-2022 Calcium [Mass/Vol] 8.9 mg/dL 8.5-10.1 [facility] Serum or plasma cholesterol in HDL measurement (mass/volume)Ordered By: Christa Villarreal on 12-18-2022 Cholesterol in HDL [Mass/Vol] 57 mg/dL >40 [facility] Comment on above: The drugs N-Acetylcy steine and Metamizole may falsely depress this assay. Reference Range HDL <40 mg/dL Low HDL Cholesterol HDL >or= 60 mg/dL High HDL Cholesterol Serum or plasma cholesterol in VLDL measurement (mass/volume)Ordered By: Christa Villarreal on 12-18-2022 Cholesterol in VLDL [Mass/Vol] 21 mg/dL 5-40 [facility] Serum or plasma creatinine m easurement (mass/volume)Ordered By: Christa Villarreal on 12-18-2022 Creatinine [Mass/Vol] 0.89 mg/dL 0.55-1.02 [facility] Comment on above: The validity of the calculated GFR & GFRAA in patients over 70 years has not been determined. Clinical correlation is essential. Serum or plasma low density lipoprotein (LDL) cholesterol measurement (mass/volume)Ordered By: Christa Villarreal on 12-18-2022 Cholesterol in LDL [Mass/Vol] 66 mg/dL 0-130 [facility] Serum or plasma urea nitroge n measurement (mass/volume)Ordered By: Christa Villarreal on 12-18-2022 Urea nitrogen [Mass/Vol] 19 mg/dL 7-18 [facility] Thin prep Papanicolaou smear with manual screeningOrdered By: Christa Villarreal on 12-18-2022 Thin prep Papanicolaou smear with manual screening 14 U/L 15-37 [facility] Thin prep Papanicolaou smear with manual screening 5 5-15 [facility] Thin prep Papanicolaou smear with manual screening 10.7 mg/L NO RANGE EST. [facility] Urine creatinine measurement (mass/volume)Ordered By: Christa Villarreal on 12-18-2022 Creatinine (U) [Mass/Vol] 123.00 mg/dL NO RANGE EST. [facility] Laboratory - Hematology and Cell countson 12-17-2022 HbA1c (Bld) [Mass fraction] 7.3 % 4.2-6.3 [facility] UA DIP, URINE (POC)on 2022 BILIRUBIN UA (POCT) Negative Negative [facility] CLARITY UA (POCT) Clear [facility] COLOR UA (POCT) Light yellow [facility] GLUCOSE UA (POCT) Negative Negative mg/dL [facility] HEMOGLOBIN/BLOOD UA (POCT) Negative Negative [facility] KETONE UA (POCT) Negative Negative mg/dL [facility] LEUKOCYTES UA (POCT) Negative Negative [facility] NITRITE UA (POCT) Negative Negative [facility] PH UA (POCT) 7.0 4.5 - 8.0 [facility] Protein Ql (U) 30 mg/dL Abnormal Negative mg/dL [facility] SPECIFIC GRAVITY UA (POCT) 1.020 1.005 - 1.030 [facility] UROBILINOGEN UA (POCT) 1.0 E.U./dL Normal E.U./dL [facility] VITAMIN D 25 HYDROXYon 08-26 25-hydroxyvitamin D3 [Mass/Vol] 25.2 ng/mL Low 31.0 - 80.0 ng/mL [facility] Iron and Iron binding capaci ty panelon 08-10-2022 Iron [Mass/Vol] 63 ug/dL 41 - 186 ug/dL [facility] Iron binding capacity [Mass/Vol] 330 ug/dL 232 - 386 ug/dL [facility] Iron/TIBC [Molar ratio] 19.1 % 15.0 - 57.0 % [facility] Laboratory - Hematology and Cell countson 05-22-2022 HbA1c (Bld) [Mass fraction] 7.8 % [facility] Work Phone: CT LUNG SCREEN IVCONon [facility] SIMEON SCREENINGon 03-17-2022 [facility] SPIROMETRY - BASELINE AND PO ST DILATORon 03-05-2022 DLCO (ml/min/mmHg) 20.90 ml/min/mmHg [facility] DLCO/VA (ml/min/mmHg/L) 3.92 ml/min/mmHg/L [facility] ERV BOX (L) 0.60 L [facility] JJQ88-38% POST (L/S) 2.77 L/S [facility] MID28-45% PRE (L/S) 2.67 L/S [facility] FEV1 PRE (L) 2.78 L [facility] FEV1/FVC POST (%) 0.78 % [facility] FEV1/FVC PRE (%) 0.79 % [facility] FEV1_POST (L) 2.82 L [facility] FRC Box (L) 3.12 L [facility] FVC POST (L) 3.62 L [facility] FVC PRE (L) 3.50 L [facility] IC BOX (L) 2.53 L [facility] PEF POST (L/S) 5.63 L/S [facility] PEF PRE (L/S) 5.25 L/S [facility] RV Box (L) 2.46 L [facility] RV/TLC Box (%) 44 % [facility] TLC Box (L) 5.55 L [facility] VA (L) 5.33 L [facility] VC (L) BOX 3.26 L [facility] Absolute lymphocyte counton 12-10-2021 Lymphocytes Auto (Unsp spec) [#/Vol] 1.12 10*3/uL 0.83-4.51 [facility] Work Phone: Basophil percentageon 2021 Basophils/100 WBC (Bld) 0.1 % 0-1 [facility] Work Phone: Eosinophils/100 WBC (Bld) 0.0 % 0-5 [facility] Work Phone: Neutrophils (Bld) [#/Vol] 15.7 10*3/uL 2.0-7.7 [facility] Work Phone: Neutrophils/100 WBC (Bld) 89.0 % 47-70 [facility] Work Phone: WBC (Bld) [#/Vol] 17.7 10*3/uL 4.4-11.0 [facility] Work Phone: Chloride [Moles/Vol] 106 mmol/L 98-[address] [facility] Work Phone: Glucose [Mass/Vol] 197 mg/dL 74-106 [facility] Work Phone: Comment on above: Fasting Glucose resu lt greater than or equal to 126 mg/dL suggests DIABETES MELLITUS per A.D.A. criteria. Potassium [Moles/Vol] 4.0 mmol/L 3.5-5.1 [facility] Work Phone: Sodium [Moles/Vol] 138 mmol/L 136-145 [facility] Work Phone: Blood erythrocytes count (nu mber/volume)on 12-10-2021 RBC (Bld) [#/Vol] 4.02 10*6/uL 4.2-5.4 [facility] Work Phone: [phone] Blood hemoglobin measurement (mass/volume)on 12-10-2021 Hemoglobin (Bld) [Mass/Vol] 11.6 g/dL 12.0-15.0 [facility] Work Phone: Blood lymphocytes/100 leukoc yteson 12-10-2021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 Heart rate 76 /min Zachary Toney MD Work Phone: [facility] 11-18-2023 10:12-0400 Respiratory rate 18 /min Zachary Toney MD Work Phone: [facility] 11-18-2023 10:12-0400 Systolic blood pressure 122 mm[Hg] Zachary Toney MD Work Phone: [facility] 11-04-2023 16:41-0500 Body weight 80.74 kg Zachary Toney MD Work Phone: [facility] 11-04-2023 16:41-0500 Diastolic blood pressure 68 mm[Hg] Zachary Toney MD Work Phone: [facility] 11-04-2023 16:41-0500 Heart rate 80 /min Zachary Toney MD Work Phone: [facility] 11-04-2023 16:41-0500 Respiratory rate 16 /min Dr. Zachary Toney Work Phone: [facility] 11-04-2023 16:41-0500 Systolic blood pressure 126 mm[Hg] Zachary Toney MD Work Phone: [facility] 11-04-2023 11:00-0500 Body temperature 98 [degF] Dr. Zachary Toney Work Phone: [facility] 11-04-2023 11:00-0500 Diastolic blood pressure 72 mm[Hg] Dr. Zachary Toney Work Phone: [facility] 11-04-2023 11:00-0500 Heart rate 72 /min Dr. Zachary Toney Work Phone: [facility] 11-04-2023 11:00-0500 SaO2% (BldA) [Mass fraction] 97 % Dr. Zachary Toney Work Phone: [facility] 11-04-2023 11:00-0500 Systolic blood pressure 113 mm[Hg] Dr. Zachary Toney Work Phone: [facility] 11-04-2023 10:40-0500 Inhaled oxygen flow rate 4 L/min Dr. Zachary Toney Work Phone: [facility] 11-04-2023 09:11-0500 Body height 160.[address] Zachary Toney Work Phone: [facility] 11-04-2023 09:11-0500 Body mass index (BMI) [Ratio] 31.3 kg/m2 Dr. Zachary Toney Work Phone: 5(416)443-162027 [place] [address] 11-04-2023 09:11-0500 Body weight 80.[address] Zachary Toney Work Phone: 2(020)130-093771 [place] [address] 11-03-2023 10:12-0500 Body mass index (BMI) [Ratio] 31.3 kg/m2 Dr. Zachary Toney Work Phone: 8(595)187-917671 [place] [address] 11-03-2023 10:12-0500 Body temperature 98 [degF] Dr. Zachary Toney Work Phone: 3(743)625-675171 [place] [address] 11-03-2023 10:12-0500 Body weight 80.[address] Zachary Toney Work Phone: 6(135)091-966571 [place] [address] 11-03-2023 10:12-0500 Diastolic blood pressure 86 mm[Hg] Dr. Zachary Toney Work Phone: 4(431)700-076571 [place] [address] 11-03-2023 10:12-0500 Heart rate 58 /min Dr. Zachary Toney Work Phone: 3(036)436-020371 [place] [address] 11-03-2023 10:12-0500 Respiratory rate 14 /min Dr. Zachary Toney Work Phone: 7(741)358-295671 [place] [address] 11-03-2023 10:12-0500 SaO2% (BldA) [Mass fraction] 98 % Dr. Zachary Toney Work Phone: 8(521)593-569071 [place] [address] 11-03-2023 10:12-0500 Systolic blood pressure 125 mm[Hg] Dr. Zachary Toney Work Phone: 2(059)201-129371 [place] [address] 08-04-2023 09:18-0500 Body mass index (BMI) [Ratio] 30.2 kg/m2 Dr. Zahcary Toney Work Phone: 0(437)273-004671 [place] [address] 08-04-2023 09:18-0500 Body temperature 98.7 [degF] Dr. Zachary Toney Work Phone: 0(861)022-077571 [place] [address] 08-04-2023 09:18-0500 Body weight 77.[address] Zachary Toney Work Phone: 5(294)592-271271 [place] [address] 08-04-2023 09:18-0500 Diastolic blood pressure 84 mm[Hg] Dr. Zachary Toney Work Phone: 8(347)548-325471 [place] [address] 08-04-2023 09:18-0500 Heart rate 78 /min Dr. Zachary Toney Work Phone: 9(351)603-336771 [place] [address] 08-04-2023 09:18-0500 Respiratory rate 16 /min Dr. Zachary Toney Work Phone: 6(426)721-072671 [place] [address] 08-04-2023 09:18-0500 SaO2% (BldA) [Mass fraction] 98 % Dr. Zachary Toney Work Phone: 6(874)791-069071 [place] [address] 08-04-2023 09:18-0500 Systolic blood pressure 136 mm[Hg] Dr. Zachary Toney Work Phone: 1(115)062-826971 [place] [address] 06-24-2023 11:06-0400 Body height 160.[address] Zachary Toney Work Phone: 2(621)420-279471 [place] [address] 06-24-2023 11:06-0400 Body mass index (BMI) [Ratio] 30.9 kg/m2 Dr. Zachary Toney Work Phone: 2(067)166-976871 [place] [address] 06-24-2023 11:06-0400 Body temperature 97.8 [degF] Dr. Zachary Toney Work Phone: 1(403)757-491771 [place] [address] 06-24-2023 11:06-0400 Body weight 79.[address] Zachary Toney Work Phone: 0(728)544-887671 [place] [address] 06-24-2023 11:06-0400 Diastolic blood pressure 84 mm[Hg] Dr. Zachary Toney Work Phone: 1(156)266-819471 [place] [address] 06-24-2023 11:06-0400 Heart rate 64 /min Dr. Zachary Toney Work Phone: 5(421)178-029971 [place] [address] 06-24-2023 11:06-0400 Respiratory rate 16 /min Dr. Zachary Toney Work Phone: [facility] 06-24-2023 11:06-0400 SaO2% (BldA) [Mass fraction] 96 % Dr. Zachary Toney Work Phone: [facility] 06-24-2023 11:06-0400 Systolic blood pressure 126 mm[Hg] Dr. Zachary Toney Work Phone: [facility] 06-16-2023 16:51-0400 Body height 160.5 cm Priyanka 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 Work Phone: [facility] 06-16-2023 16:51-0400 Body weight 77.11 kg Priyanka 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 Work Phone: [facility] 06-16-2023 16:51-0400 Diastolic blood pressure 78 mm[Hg] Priyanka 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 Work Phone: [facility] 06-16-2023 16:51-0400 Heart rate 51 /min Priyanka 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 Work Phone: [facility] 06-16-2023 16:51-0400 Respiratory rate 16 /min Priyanka 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 Work Phone: [facility] 06-16-2023 16:51-0400 SaO2% (BldA) [Mass fraction] 99 % Priyanka 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 Work Phone: [facility] 06-16-2023 16:51-0400 Systolic blood pressure 122 mm[Hg] Priyanka 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 Work Phone: [facility] 05-14-2023 11:57-0400 Body height 160 cm Joanna Srivastava MD Work Phone: [facility] 05-14-2023 11:57-0400 Body weight 77.56 kg Joanna Srivastava MD Work Phone: [facility] 05-08-2023 08:39-0400 Body temperature 97.39 [degF] Zachary Toney MD Work Phone: [facility] 05-08-2023 08:39-0400 Body weight 77.56 kg Zachary Toney MD Work Phone: [facility] 05-08-2023 08:39-0400 Diastolic blood pressure 92 mm[Hg] Zachary Toney MD Work Phone: [facility] 05-08-2023 08:39-0400 Heart rate 75 /min Zachary Toney MD Work Phone: [facility] 05-08-2023 08:39-0400 Respiratory rate 16 /min Zachary Toney MD Work Phone: [facility] 05-08-2023 08:39-0400 SaO2% (BldA) [Mass fraction] 97 % Zachary Toney MD Work Phone: [facility] 05-08-2023 08:39-0400 Systolic blood pressure 162 mm[Hg] Zachary Toney MD Work Phone: [facility] 05-05-2023 19:00-0400 Diastolic blood pressure 78 mm[Hg] Dr. Zachary Toney Work Phone: [facility] 05-05-2023 19:00-0400 Heart rate 81 /min Dr. Zachary Toney Work Phone: [facility] 05-05-2023 19:00-0400 Respiratory rate 15 /min Dr. Zachary Toney Work Phone: [facility] 05-05-2023 19:00-0400 SaO2% (BldA) [Mass fraction] 94 % Dr. Zachary Toney Work Phone: [facility] 05-05-2023 19:00-0400 Systolic blood pressure 116 mm[Hg] Dr. Zachary Toney Work Phone: [facility] 05-05-2023 15:15-0400 Body height 160.[address] Zachary Toney Work Phone: [facility] 05-05-2023 15:15-0400 Body mass index (BMI) [Ratio] 30 kg/m2 Dr. Zachary Toney Work Phone: [facility] 05-05-2023 15:15-0400 Body temperature 97.9 [degF] Dr. Zachary Toney Work Phone: [facility] 05-05-2023 15:15-0400 Body weight 77.[address] Zachary Toney Work Phone: [facility] 02-24-2023 09:52-0400 Body weight 83.46 kg Zachary Toney MD Work Phone: [facility] 02-24-2023 09:52-0400 Diastolic blood pressure 68 mm[Hg] Zachary Toney MD Work Phone: [facility] 02-24-2023 09:52-0400 Heart rate 64 /min Zachary Toney MD Work Phone: [facility] 02-24-2023 09:52-0400 Respiratory rate 18 /min Zachary Toney MD Work Phone: [facility] 02-24-2023 09:52-0400 Systolic blood pressure 116 mm[Hg] Zachary Toney MD Work Phone: [facility] 02-01-2023 11:31-0400 Body temperature 97.59 [degF] Devonte Smith Jr., MD Work Phone: [facility] 02-01-2023 11:31-0400 Body weight 84.01 kg Devonte Smith Jr., MD Work Phone: [facility] [facility]01[facility]23 11:31-0400 Diastolic blood pressure 85 mm[Hg] Devonte Smith Jr., MD Work Phone: [facility] 02-01-2023 11:31-0400 Heart rate 62 /min Devonte Smith Jr., MD Work Phone: [facility] 02-01-2023 11:31-0400 Respiratory rate 18 /min Devonte Smith Jr., MD Work Phone: [facility] 02-01-2023 11:31-0400 SaO2% (BldA) [Mass fraction] 95 % Devonte Smith Jr., MD Work Phone: [facility] 02-01-2023 11:31-0400 Systolic blood pressure 131 mm[Hg] Devonte Smith Jr., MD Work Phone: [facility] 12-17-2022 08:17-0400 Body height 160.[address] Zachary Toney Work Phone: [facility] 12-17-2022 08:17-0400 Body mass index (BMI) [Ratio] 33 kg/m2 Dr. Zachary Toney Work Phone: [facility] 12-17-2022 08:17-0400 Body temperature 97.5 [degF] Dr. Zachary Toney Work Phone: [facility] 12-17-2022 08:17-0400 Body weight 84.[address] Zachary Toney Work Phone: [facility] 12-17-2022 08:17-0400 Diastolic blood pressure 87 mm[Hg] Dr. Zachary Toney Work Phone: [facility] 12-17-2022 08:17-0400 Heart rate 70 /min Dr. Zachary Toney Work Phone: [facility] 12-17-2022 08:17-0400 Respiratory rate 17 /min Dr. Zachary Toney Work Phone: [facility] 12-17-2022 08:17-0400 SaO2% (BldA) [Mass fraction] 95 % Dr. Zachary Toney Work Phone: [facility] 12-17-2022 08:17-0400 Systolic blood pressure 135 mm[Hg] Dr. Zachary Toney Work Phone: [facility] 10-19-2022 12:18-0500 Body temperature 97.3 [degF] Zachary Toney MD Work Phone: [facility] 10-19-2022 12:18-0500 Body weight 84.73 kg Zachary Toney MD Work Phone: [facility] 10-19-2022 12:18-0500 Diastolic blood pressure 68 mm[Hg] Zachary Toney MD Work Phone: [facility] 10-19-2022 12:18-0500 Heart rate 64 /min Zachary Toney MD Work Phone: [facility] 10-19-2022 12:18-0500 Respiratory rate 12 /min Zachary Toney MD Work Phone: [facility] 10-19-2022 12:18-0500 Systolic blood pressure 130 mm[Hg] Zachary Toney MD Work Phone: [facility] 09-11-2022 11:33-0500 Body weight 84.37 kg Frida Daniel MD Work Phone: [facility] 09-11-2022 11:33-0500 Diastolic blood pressure 64 mm[Hg] Frida Daniel MD Work Phone: [facility] 09-11-2022 11:33-0500 Systolic blood pressure 118 mm[Hg] Frida Daniel MD Work Phone: [facility] 08-26-2022 13:17-0500 Body height 160 cm Frida Daniel MD Work Phone: [facility] 08-26-2022 13:17-0500 Body weight 83.01 kg Frida Daniel MD Work Phone: [facility] 08-26-2022 13:17-0500 Diastolic blood pressure 72 mm[Hg] Frida Daniel MD Work Phone: [facility] 08-26-2022 13:17-0500 Systolic blood pressure 112 mm[Hg] Frida Daniel MD Work Phone: [facility] 08-10-2022 08:09-0500 Body weight 82.46 kg Devonte Smith Jr., MD Work Phone: [facility] 08-10-2022 08:09-0500 Diastolic blood pressure 71 mm[Hg] Devonte Smith Jr., MD Work Phone: [facility] 08-10-2022 08:09-0500 Heart rate 73 /min Devonte Smith Jr., MD Work Phone: [facility] 08-10-2022 08:09-0500 Respiratory rate 16 /min Devonte Smith Jr., MD Work Phone: [facility] 08-10-2022 08:09-0500 Systolic blood pressure 109 mm[Hg] Devonte Smith Jr., MD Work Phone: [facility] 06-15-2022 12:58-0400 Body temperature 97.5 [degF] Zachary Toney MD Work Phone: [facility] 06-15-2022 12:58-0400 Body weight 82.56 kg Zachary Toney MD Work Phone: [facility] 06-15-2022 12:58-0400 Diastolic blood pressure 80 mm[Hg] Zachary Toney MD Work Phone: [facility] 06-15-2022 12:58-0400 Heart rate 64 /min Zachary Toney MD Work Phone: [facility] 06-15-2022 12:58-0400 Respiratory rate 12 /min Zachary Toney MD Work Phone: [facility] 06-15-2022 12:58-0400 Systolic blood pressure 138 mm[Hg] Zachary Toney MD Work Phone: [facility] 05-22-2022 15:53-0400 Body height 160.[address] Zachary Toney Work Phone: [facility] Work Phone: 05-22-2022 15:53-0400 Body mass index (BMI) [Ratio] 32.1 kg/m2 Dr. Zachary Toney Work Phone: [facility] Work Phone: 05-22-2022 15:53-0400 Body temperature 96.3 [degF] Dr. Zachary Toney Work Phone: [facility] Work Phone: 05-22-2022 15:53-0400 Body weight 82.[address] Zachary Toney Work Phone: [facility] Work Phone: 05-22-2022 15:53-0400 Diastolic blood pressure 73 mm[Hg] Dr. Zachary Toney Work Phone: [facility] Work Phone: 05-22-2022 15:53-0400 Heart rate 71 /min Dr. Zachary Toney Work Phone: [facility] Work Phone: 05-22-2022 15:53-0400 Respiratory rate 18 /min Dr. Zachary Toney Work Phone: [facility] Work Phone: 05-22-2022 15:53-0400 SaO2% (BldA) [Mass fraction] 93 % Dr. Zachary Toney Work Phone: [facility] Work Phone: 05-22-2022 15:53-0400 Systolic blood pressure 105 mm[Hg] Dr. Zachary Toney Work Phone: [facility] Work Phone: 04-14-2022 08:39-0400 Body weight 80.29 kg Renuka Lopez APRN.CNP Work Phone: [facility] 04-14-2022 08:39-0400 Diastolic blood pressure 82 mm[Hg] Renuka Jessica YOUTH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 Work Phone: [facility] 04-14-2022 08:39-0400 Heart rate 63 /min Renuka Jessica YOUTH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 Work Phone: [facility] 04-14-2022 08:39-0400 SaO2% (BldA) [Mass fraction] 97 % Renuka Jessica YOUTH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 Work Phone: [facility] 04-14-2022 08:39-0400 Systolic blood pressure 144 mm[Hg] Renuka Jessica YOUTH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 Work Phone: [facility] 04-06-2022 10:30-0400 Body temperature 97 [degF] Farida Henriquez MD Work Phone: [facility] 04-06-2022 10:30-0400 Diastolic blood pressure 78 mm[Hg] Farida Henriquez MD Work Phone: [facility] 04-06-2022 10:30-0400 Heart rate 71 /min Farida Henriquez MD Work Phone: [facility] 04-06-2022 10:30-0400 SaO2% (BldA) [Mass fraction] 95 % Farida Henriquez MD Work Phone: [facility] 04-06-2022 10:30-0400 Systolic blood pressure 124 mm[Hg] Farida Henriquez MD Work Phone: [facility] 03-25-2022 14:19-0400 Body height 160 cm Farida Henriquez MD Work Phone: [facility] 03-25-2022 14:19-0400 Body temperature 97.7 [degF] Farida Henriquez MD Work Phone: [facility] 03-25-2022 14:19-0400 Body weight 80.29 kg Farida Henriquez MD Work Phone: [facility] 03-25-2022 14:19-0400 Diastolic blood pressure 70 mm[Hg] Farida Henriquez MD Work Phone: [facility] 03-25-2022 14:19-0400 Heart rate 87 /min Farida Henriquez MD Work Phone: [facility] 03-25-2022 14:19-0400 SaO2% (BldA) [Mass fraction] 97 % Farida Henriquez MD Work Phone: [facility] 03-25-2022 14:19-0400 Systolic blood pressure 110 mm[Hg] Farida Henriquez MD Work Phone: [facility] 03-18-2022 14:59-0400 Body height 160 cm Farida Henriquez MD Work Phone: [facility] 03-18-2022 14:59-0400 Body temperature 98.49 [degF] Farida Henriquez MD Work Phone: [facility] 03-18-2022 14:59-0400 Body weight 79.38 kg Farida Henriquez MD Work Phone: [facility] 03-18-2022 14:59-0400 Diastolic blood pressure 70 mm[Hg] Farida Henriquez MD Work Phone: [facility] 03-18-2022 14:59-0400 Heart rate 91 /min Farida Henriquez MD Work Phone: [facility] 03-18-2022 14:59-0400 SaO2% (BldA) [Mass fraction] 94 % Farida Henriquez MD Work Phone: [facility] 03-18-2022 14:59-0400 Systolic blood pressure 102 mm[Hg] Farida Henriquez MD Work Phone: [facility] 03-17-2022 11:34-0400 Body temperature 97.11 [degF] Zachary Toney MD Work Phone: [facility] 03-17-2022 11:34-0400 Body weight 80.65 kg Zachary Toney MD Work Phone: [facility] 03-17-2022 11:34-0400 Diastolic blood pressure 76 mm[Hg] Zachary Toney MD Work Phone: [facility] 03-17-2022 11:34-0400 Heart rate 64 /min Zachary Toney MD Work Phone: [facility] 03-17-2022 11:34-0400 Respiratory rate 12 /min Zachary Toney MD Work Phone: [facility] 03-17-2022 11:34-0400 Systolic blood pressure 122 mm[Hg] Zachary Toney MD Work Phone: [facility] 03-05-2022 09:31-0400 Body height 161.3 cm Respiratory Wstr Work Phone: [facility] 03-05-2022 09:31-0400 Body weight 78.93 kg Respiratory Wstr Work Phone: [facility] 03-05-2022 09:31-0400 Heart rate 74 /min Respiratory Wstr Work Phone: [facility] 03-05-2022 09:31-0400 Respiratory rate 12 /min Respiratory Wstr Work Phone: [facility] 03-05-2022 09:31-0400 SaO2% (BldA) [Mass fraction] 96 % Respiratory Wstr Work Phone: [facility] 02-28-2022 12:50-0400 Body temperature 98.8 [degF] Maria Luisa Wallace APRN.FORMING MACHINE TENDER Work Phone: [facility] 02-28-2022 12:50-0400 Body weight 78.02 kg Maria Luisa Wallace APRN.FORMING MACHINE TENDER Work Phone: [facility] 02-28-2022 12:50-0400 Diastolic blood pressure 80 mm[Hg] Maria Luisa Wallace APRN.FORMING MACHINE TENDER Work Phone: [facility] 02-28-2022 12:50-0400 Heart rate 73 /min Maria Luisa Wallace APRN.FORMING MACHINE TENDER Work Phone: [facility] 02-28-2022 12:50-0400 Respiratory rate 16 /min Maria Luisa Wallace APRN.FORMING MACHINE TENDER Work Phone: [facility] 02-28-2022 12:50-0400 SaO2% (BldA) [Mass fraction] 98 % Maria Luisa Wallace YOUTH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 Work Phone: [facility] 02-28-2022 12:50-0400 Systolic blood pressure 118 mm[Hg] Maria Luisa Wallace YOUTH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 Work Phone: [facility] 02-25-2022 12:33-0400 Body weight 78.93 kg Priyanka 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 Work Phone: [facility] 02-25-2022 12:33-0400 Diastolic blood pressure 88 mm[Hg] Priyanka 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 Work Phone: [facility] 02-25-2022 12:33-0400 Heart rate 88 /min Priyanka 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 Work Phone: [facility] 02-25-2022 12:33-0400 Respiratory rate 12 /min Priyanka 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 Work Phone: [facility] 02-25-2022 12:33-0400 Systolic blood pressure 134 mm[Hg] Priyanka 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 Work Phone: [facility] 12-10-2021 13:28-0400 Body temperature 98.1 [degF] Dr. Zachary Toney Work Phone: [facility] Work Phone: 12-10-2021 13:28-0400 Diastolic blood pressure 88 mm[Hg] Dr. Zachary Toney Work Phone: [facility] Work Phone: 12-10-2021 13:28-0400 Heart rate 95 /min Dr. Zachary Toney Work Phone: [facility] Work Phone: 12-10-2021 13:28-0400 Respiratory rate 14 /min Dr. Zachary Toney Work Phone: [facility] Work Phone: 12-10-2021 13:28-0400 SaO2% (BldA) [Mass fraction] 98 % Dr. Zachary Toney Work Phone: [facility] Work Phone: 12-10-2021 13:28-0400 Systolic blood pressure 156 mm[Hg] Dr. Zachary Toney Work Phone: [facility] Work Phone: 12-09-2021 14:44-0400 Body height 160.[address] Zachary Toney Work Phone: [facility] Work Phone: 12-09-2021 14:44-0400 Body mass index (BMI) [Ratio] 30.4 kg/m2 Dr. Zachary Toney Work Phone: [facility] Work Phone: 12-09-2021 14:44-0400 Body weight [address] Zachary Toney Work Phone: [facility] Work Phone: 10-22-2021 09:44-0500 Body height 162.[address] Zachary Toney Work Phone: [facility] Work Phone: 10-22-2021 09:44-0500 Body mass index (BMI) [Ratio] 29.2 kg/m2 Dr. Zachary Toney Work Phone: [facility] Work Phone: 10-22-2021 09:44-0500 Body temperature 96.5 [degF] Dr. Zachary Toney Work Phone: [facility] Work Phone: 10-22-2021 09:44-0500 Body weight 77.[address] Zachary Toney Work Phone: [facility] Work Phone: 10-22-2021 09:44-0500 Diastolic blood pressure 84 mm[Hg] Dr. Zachary Toney Work Phone: [facility] Work Phone: 10-22-2021 09:44-0500 Heart rate 68 /min Dr. Zachary Toney Work Phone: [facility] Work Phone: 10-22-2021 09:44-0500 Respiratory rate 16 /min Dr. Zachary Toney Work Phone: [facility] Work Phone: 10-22-2021 09:44-0500 SaO2% (BldA) [Mass fraction] 98 % Dr. Zachary Toney Work Phone: [facility] Work Phone: 10-22-2021 09:44-0500 Systolic blood pressure 120 mm[Hg] Dr. Zachary Toney Work Phone: [facility] Work Phone: 09-04-2021 14:45-0500 Body mass index (BMI) [Ratio] 28.5 kg/m2 Dr. Zachary Toney Work Phone: [facility] Work Phone: 09-04-2021 14:45-0500 Body temperature 96.3 [degF] Dr. Zachary Toney Work Phone: [facility] Work Phone: 09-04-2021 14:45-0500 Body weight 75.[address] Zachary Toney Work Phone: [facility] Work Phone: 09-04-2021 14:45-0500 Diastolic blood pressure 82 mm[Hg] Dr. Zachary Toney Work Phone: [facility] Work Phone: 09-04-2021 14:45-0500 Heart rate 74 /min Dr. Zachary Toney Work Phone: [facility] Work Phone: 09-04-2021 14:45-0500 Respiratory rate 18 /min Dr. Zachary Toney Work Phone: [facility] Work Phone: 09-04-2021 14:45-0500 SaO2% (BldA) [Mass fraction] 98 % Dr. Zachary Toney Work Phone: [facility] Work Phone: 09-04-2021 14:45-0500 Systolic blood pressure 126 mm[Hg] Dr. Zachary Toney Work Phone: [facility] Work Phone: 07-13-2020 03:08-0500 BP Diastolic 78 mm[Hg] [facility] [place] 07-13-2020 03:08-0500 BP Systolic 140 mm[Hg] [facility] [place] 07-13-2020 03:08-0500 Pulse (Heart Rate) 70 /min [facility] [place] 07-13-2020 03:08-0500 Pulse Oximetry 97 % [facility] [employer] [facility] [place] 07-13-2020 03:08-0500 Respiratory Rate 18 /min [facility] [place] 07-12-2020 20:10-0500 BMI (Body Mass Index) 28.34 kg/m2 [facility] [place] 07-12-2020 20:10-0500 Body Temperature 98.6 [degF] [facility] [place] 07-12-2020 20:10-0500 Body weight 72.58 kg [facility] [place] 07-12-2020 20:10-0500 Height 160 cm [facility] [employer] [facility] [place] Encounters Encounter Date Encounter Type Care Provider Facility Start: 07-06-2025 End: 07-06-2025 ambulatory ZACHARY TONEY Facility:[facility] Start: 06-20-2025 End: 06-20-2025 ambulatory ZACHARY TONEY Facility:[facility] Start: 06-20-2025 Patient encounter procedure ZACHARY TONEY [facility] Start: 2025 End: 2025 ambulatory Christa Villarreal Facility:[facility] Start: 06-05-2025 End: 06-05-2025 ambulatory ZACHARY TONEY Facility:[facility] Start: 05-30-2025 End: 05-30-2025 Patient encounter procedure Christa Villarreal TRAIL MAINTENANCE WORKER-C -[facility] Work Phone: Start: 05-30-2025 End: 05-30-[address] Zachary Toney MD Work Phone: -[facility] Start: 04-10-2025 End: 04-10-[address] Tiara Up MD -[facility] Work Phone: Start: 04-10-2025 End: 04-10-[address] Zachary Toney MD Work Phone: -[facility] Comment on above: Med Change Request Start: 04-05-2025 End: 04-05-2025 Emergency department patient visit Dr. Zachary Toney MD Work Phone: -Emergency Department Work Phone: Start: 03-15-2025 End: 03-15-2025 Office consultation new/estab patient 60 min Javier Holt DO Work Phone: Allergy Comment on above: Chronic cough (Prima ry Dx); Abnormal lung function test; Impaired speech articulation; Vasomotor rhinitis; Former tobacco use; Gastroesophageal reflux disease, unspecified whether esophagitis present; Encounter for allergy testing Start: 03-15-2025 End: 03-15-2025 Patient encounter status Javier Holt DO Work Phone: [facility] Start: 03-15-2025 End: 03-15-2025 ambulatory JAVIER HOLT Facility:[facility] Start: 03-15-2025 Encounter for allerg y testing JAVIER HOLT [facility] Start: 02-27-2025 Non-patient / Non-visit Dr. Tiara baptiste MD -[facility] Work Phone: Start: 02-12-2025 End: 02-12-2025 Patient encounter procedure Pulm Lab [facility] Work Phone: Pulmonary Medicine Comment on above: Spirometry Chronic cough (Prima ry Dx); Post-nasal drip; Gastroesophageal reflux disease, unspecified whether esophagitis present; Former tobacco use Start: 02-12-2025 End: 02-12-2025 ambulatory SELF Facility:[facility] Start: 02-12-2025 End: 02-12-2025 ambulatory ZACHARY TONEY Facility:[facility] Start: 12-26-2024 End: 12-26-2024 Follow-up encounter Maine Marvin APRN.FORMING MACHINE TENDER Work Phone: Pulmonary Medicine Start: 12-20-2024 End: 12-20-2024 ambulatory ZACHARY TONEY Facility:[facility] Start: 12-18-2024 End: 12-18-2024 Office outpatient visit 25 minutes Zachary Toney MD Work Phone: [facility] [place] Comment on above: Essential hypertensi on (Primary Dx); Restless legs; Depressive disorder; Other hyperlipidemia; Type 2 diabetes mellitus with diabetic neuropathy, with long-term current use of insulin (HCC); Chronic cough; DEBBIE (obstructive sleep apnea) mild; moderate when supine. Start: 12-18-2024 End: 12-18-2024 ambulatory ZACHARY TONEY Facility:[facility] Start: 12-08-2024 End: 12-08-2024 Follow-up encounter Maine Marvin APRN.CNP Work Phone: Pulmonary Medicine Start: 12-06-2024 End: 12-06-2024 Patient encounter procedure Maine Marvin APRN.CNP Work Phone: Pulmonary Medicine Comment on above: Multiple lung nodule s (Primary Dx); Encounter for screening for lung cancer; Former tobacco use; Persistent cough for 3 weeks or longer Start: 12-06-2024 End: 12-06-2024 ambulatory UNKNOWN PROVIDER Facility:[facility] Start: 12-06-2024 End: 12-06-2024 Subsequent hospital visit by physician [facility] Radiology Comment on above: Encounter for screen ing for malignant neoplasm of respiratory organs [Z12.2] Start: 11-29-2024 End: 11-29-2024 ambulatory [facility] Facility:[facility] Start: 10-20-2024 End: 10-20-2024 Orders Only Renuka Lopez APRN.CNP Work Phone: [facility]ULMONOLOGY [facility] Comment on above: Encounter for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 Otolaryngology [address] [address] Leticia Blake PA [address] [place] [address] Chronic cough [R05.3]; Abnormal lung function test [R94.2]; Impaired speech articulation [F80.0] Otolaryngology Comment on above: Chronic cough [R05.3]; Abnormal lung fun ction test [R94.2]; Impaired speech articulation [F80.0] Start: 04-05-2025 [facility] Start: 04-05-2025 [facility] Start: 03-15-2025 End: 03-15-2025 Patient encounter procedure 03/15/2025 10:00 AM EDT Office Visit Allergy [address] [facility] [address] [place], [place] [id number] Javier Holt DO [address] [place] [address] Chronic cough [R05.3] Allergy Comment on above: Chronic cough [R05.3] Start: 03-08-2025 Annual PCP Team Chronic Disease Visit Annual PCP Team Chronic Disease Visit [facility] Start: 03-08-2025 BP Controlled (<130/80) BP Controlled (<130/80) [facility] Start: 02-12-2025 End: 02-12-2025 Patient encounter procedure 02/12/2025 1:45 PM EDT Office Visit Pulmonary Medicine [address] [place] [address] [place] [address] [place] [address] New pt [facility] pft's per Marisa Bull Pulmonary Medicine Comment on above: New pt [facility] pft's per Marisa Bull Start: 02-12-2025 End: 02-12-2025 Patient encounter procedure Pulmonary Medicine Comment on above: New pt Asthma pft's Start: 12-18-2024 End: 12-18-2024 Patient encounter procedure 12/18/2024 5:40 PM EDT Office Visit Internal Medicine [place] [address] [place], [place] [id number] Zachary Toney MD [address] [place] [address] 6 month follow up [facility] [place] Comment on above: 6 month follow up Start: 12-06-2024 End: 12-06-2024 Patient encounter procedure Radiology Comment on above: [facility] Start: 11-17-2024 Annual PCP Team Chronic Disease Visit Annual PCP Team Chronic Disease Visit [facility] Start: 11-17-2024 BP Controlled (<130/80) BP Controlled (<130/80) [facility] in Start: 11-07-2024 End: 11-07-2024 Patient encounter procedure 11/07/2024 3:40 PM EDT Appointment Mammogram [address] [place] [address] Encounter for screening mammogram for malignant neoplasm of breast [Z12.31] Mammogram Comment on above: Encounter for screening mammogram for ma lignant neoplasm of breast [Z12.31] Start: 11-03-2024 Annual PCP Team Chronic Disease Visit Annual PCP Team Chronic Disease Visit [facility] Start: 11-03-2024 BP Controlled (<130/80) BP Controlled (<130/80) [facility] Start: 11-01-2024 Glaucoma screening Dilated Retinal Exam [facility] Start: 10-31-2024 Hemoglobin A1c measurement HbA1C [facility] Start: 10-11-2024 End: 10-11-2024 Patient encounter procedure 10/11/2024 3:20 PM EST Office Visit OB/Gynecology [address] [place] [address] Frida Lopez MD [address] [place] [address] declined sooner apt with other providers OB/Gynecology Comment on above: declined sooner apt with other providers Start: 10-10-2024 End: 10-10-2024 Patient encounter procedure 10/10/2024 4:00 PM EST Appointment Mammogram [address] [place] [address] Encounter for screening mammogram for malignant neoplasm of breast [Z12.31] Mammogram Comment on above: Encounter for screening mammogram for ma lignant neoplasm of breast [Z12.31] Start: 10-08-2024 Screening for malignant neoplasm of breast Mammogram Screening [facility] Start: 09-28-2024 Hepatitis B screening Urine Albumin:Creatinine Ratio [facility] Start: 09-28-2024 Hepatitis B surface antibody level LDL Cholesterol [facility] Start: 09-27-2024 Annual PCP Team Chronic Disease Visit Annual PCP Team Chronic Disease Visit [facility] Start: 09-27-2024 BP Controlled (<130/80) BP Controlled (<130/80) [facility] Start: 09-27-2024 Diabetic foot examination Diabetic Foot Exam [facility] Start: 09-16-2024 End: 07-16-2025 DBT Breast - bilateral screening SIMEON SCREENING W JUAN A Radiology Routine Encounter for screening mammogram for malignant neoplasm of breast Expected: 09/16/2024, Expires: 07/16/2025 [facility] Work Phone: Comment on above: Expected: 09/16/2024, Expires: Start: 08-30-2024 Medicare Advantage Annual Wellness Visit Medicare Advantage Annual Wellness Visit [facility] Start: 08-16-2024 BP Controlled (<130/80) BP Controlled (<130/80) [facility] Start: 07-31-2024 End: 07-31-2024 Patient encounter procedure 07/31/2024 10:30 AM EST Office Visit Neurology [address] [place] [address] Ami Miller, YOUTH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 [address] [place] [address] Follow up 04/28 cpap Neurology Comment on above: Follow up 04/28 cpap Start: 06-16-2024 Annual PCP Team Chronic Disease Visit Annual PCP Team Chronic Disease Visit [facility] Start: 06-16-2024 BP Controlled (<130/80) BP Controlled (<130/80) [facility] Start: 06-16-2024 Covid-19 Vaccine ( season) Covid-19 Vaccine () [facility] Comment on above: Postponed from 04/30/2023 (Declined at t his time) Start: 06-16-2024 Hepatitis B Vaccine (1 of 3 - Risk 3-dose series) Hepatitis B Vaccine (1 of 3 - Risk 3-dose series) [facility] Comment on above: Postponed from 2022 (Declined at t his time) Start: 06-16-2024 Shingrix Vaccine (1 of 2) Shingrix Vaccine (1 of 2) [facility] Comment on above: Postponed from 2012 (Declined at t his time) Start: 06-16-2024 End: 06-16-2024 Patient encounter procedure 06/16/2024 8:00 AM EDT Office Visit Internal Medicine [place] [address] [place] [address] Zachary Toney MD [address] [place] [address] Annual Medicare w/9 month follow-up [facility] [place] Comment on above: Annual Medicare w/9 month follow-up Start: 05-08-2024 ANNUAL PCP TEAM CHRONIC DISEASE VISIT ANNUAL PCP TEAM CHRONIC DISEASE VISIT [facility] Start: 05-05-2024 BP CONTROLLED (<130/80) BP CONTROLLED (<130/80) [facility] in Start: 04-30-2024 Covid-19 Vaccine ( season) Covid-19 Vaccine ( season) [facility] Start: 04-30-2024 [facility] Start: 04-28-2024 End: 04-28-2024 Patient encounter procedure 04/28/2024 10:30 AM EDT Office Visit Neurology [address] [place] [address] Ami Miller, CELI.FORMING MACHINE TENDER [address] [place] [address] Six month follow up, DEBBIE, no CPAP Neurology Comment on above: Six month follow up, DEBBIE, no CPAP Start: 03-28-2024 Hemoglobin A1c measurement HbA1C [facility] Start: 03-10-2024 End: 03-10-2024 Patient encounter procedure 03/10/2024 11:00 AM EDT Appointment [facility] [address] [place] [address] Epilepsy (3T only) [facility] Comment on above: Epilepsy (3T only) Start: 02-25-2024 ANNUAL PCP TEAM CHRONIC DISEASE VISIT ANNUAL PCP TEAM CHRONIC DISEASE VISIT [facility] Start: 02-25-2024 BP CONTROLLED (<130/80) BP CONTROLLED (<130/80) [facility] Start: 02-18-2024 End: 02-18-2024 Patient encounter procedure 02/18/2024 10:00 AM EDT Office Visit Neurology [address] [place] [address] Ami Miller, CELI.FORMING MACHINE TENDER [address] [place] [address] Six month follow up, DEBBIE, no CPAP Neurology Comment on above: Six month follow up, DEBBIE, no CPAP Start: 02-15-2024 End: 02-15-2024 Patient encounter procedure 02/15/2024 11:00 AM EDT Appointment [facility] [address] [place], [place] [id number] Epilepsy (3T only) [facility] Comment on above: Epilepsy (3T only) Start: 12-19-2023 Hepatitis B screening URINE ALBUMIN:CREATININE RATIO [facility] Start: 12-17-2023 [facility] Start: 12-06-2023 Colonoscopy COLONOSCOPY [facility] Start: 12-06-2023 COLORECTAL CANCER SCREENING COLORECTAL CANCER SCREENING [facility] Start: 12-06-2023 Screening for malignant neoplasm of colon [facility] Start: 11-04-2023 End: 02-03-2024 CBC panel - Blood by Automated count CBC Lab Routine Seizure-like activity (HCC) Expected: 11/04/2023, Expires: 02/03/2024 [facility] Work Phone: Comment on above: Expected: 11/04/2023, Expires: Start: 11-04-2023 End: 02-03-2024 Comprehensive metabolic 2000 panel - Serum or Plasma COMP METABOLIC PANEL Lab Routine Seizure-like activity (HCC) Expected: 11/04/2023, Expires: 02/03/2024 [facility] Work Phone: Comment on above: Expected: 11/04/2023, Expires: 4 Start: 11-04-2023 Egd transoral biopsy single/multiple EGD BIOPSY SINGLE/MULTIPLE [facility] Start: 11-04-2023 End: 02-03-2024 Lactate [Moles/volume] in Serum or Plasma LACTIC ACID/LACTATE Lab Routine Seizure-like activity (HCC) Expected: 11/04/2023, Expires: 02/03/2024 [facility] Work Phone: Comment on above: Expected: 11/04/2023, Expires: 4 Start: 11-04-2023 End: 02-03-2024 Magnesium [Mass/volume] in Serum or Plasma MAGNESIUM BLD Lab Routine Seizure-like activity (HCC) Expected: 11/04/2023, Expires: 02/03/2024 [facility] Work Phone: Comment on above: Expected: 11/04/2023, Expires: 4 Start: 11-04-2023 Patient discharge [facility] Start: 10-19-2023 ANNUAL PCP TEAM CHRONIC DISEASE VISIT ANNUAL PCP TEAM CHRONIC DISEASE VISIT [facility] Start: 09-11-2023 BP CONTROLLED (<130/80) BP CONTROLLED (<130/80) [facility] Start: 09-03-2023 Hepatitis B surface antibody level LDL CHOLESTEROL [facility] Start: 08-30-2023 RSV Vaccine (1 - 1-dose 60+ series) RSV Vaccine (1 - 1-dose 60+ series) [facility] Comment on above: Postponed from 2022 (Declined at t his time) Start: 08-27-2023 3 comp foot exam completed DIABETIC FOOT EXAM [facility] Start: 08-27-2023 ANNUAL PCP TEAM CHRONIC DISEASE VISIT ANNUAL PCP TEAM CHRONIC DISEASE VISIT [facility] Start: 08-27-2023 BP CONTROLLED (<130/80) BP CONTROLLED (<130/80) [facility] Start: 08-27-2023 Diabetic foot examination Diabetic Foot Exam [facility] Start: 08-20-2023 Hemoglobin A1c measurement HbA1C [facility] Start: 08-20-2023 Hemoglobin A1c/Hemoglobin.total in Blood HbA1C [facility] Start: 08-10-2023 BP CONTROLLED (<130/80) BP CONTROLLED (<130/80) [facility] Start: 06-15-2023 ANNUAL PCP TEAM CHRONIC DISEASE VISIT ANNUAL PCP TEAM CHRONIC DISEASE VISIT [facility] Start: 05-14-2023 End: 07-14-2023 25-hydroxyvitamin D3 [Mass/volume] in Serum or Plasma VITAMIN D 25 HYDROXY Lab Routine Class 1 obesity Type 2 diabetes mellitus with diabetic neuropathy, with long-term current use of insulin (HCC) Expected: 05/14/2023, Expires: 07/14/2023 [facility] Work Phone: Comment on above: Expected: 05/14/2023, Expires: 3 Start: 05-14-2023 End: 07-14-2023 Cobalamin (Vitamin B12) [Mass/volume] in Serum or Plasma VITAMIN B12 BLOOD Lab Routine Class 1 obesity Type 2 diabetes mellitus with diabetic neuropathy, with long-term current use of insulin (HCC) Expected: 05/14/2023, Expires: 07/14/2023 [facility] Work Phone: Comment on above: Expected: 05/14/2023, Expires: 3 Start: 05-14-2023 End: 07-14-2023 Comprehensive metabolic 2000 panel - Serum or Plasma COMP METABOLIC PANEL Lab Routine Class 1 obesity Type 2 diabetes mellitus with diabetic neuropathy, with long-term current use of insulin (HCC) Expected: 05/14/2023, Expires: 07/14/2023 [facility] Work Phone: Comment on above: Expected: 05/14/2023, Expires: 3 Start: 05-14-2023 End: 07-14-2023 Hemoglobin A1c in Blood HGB A1C Lab Routine Class 1 obesity Type 2 diabetes mellitus with diabetic neuropathy, with long-term current use of insulin (HCC) Expected: 05/14/2023, Expires: 07/14/2023 [facility] Work Phone: Comment on above: Expected: 05/14/2023, Expires: 3 Start: 04-30-2023 Covid-19 Vaccine () Covid-19 Vaccine () [facility] Start: 04-30-2023 Influenza vaccination INFLUENZA (#1) [facility] Start: 04-28-2023 Influenza vaccination LUNG CANCER SCREENING [facility] Start: 04-28-2023 Screening for malignant neoplasm of lung Lung Cancer Screening [facility] Start: 04-06-2023 BP CONTROLLED (<130/80) BP CONTROLLED (<130/80) [facility] in Start: 03-25-2023 BP CONTROLLED (<130/80) BP CONTROLLED (<130/80) [facility] Start: 03-18-2023 BP CONTROLLED (<130/80) BP CONTROLLED (<130/80) [facility] Start: 03-17-2023 ANNUAL PCP TEAM CHRONIC DISEASE VISIT ANNUAL PCP TEAM CHRONIC DISEASE VISIT [facility] Start: 03-17-2023 BP CONTROLLED (<130/80) BP CONTROLLED (<130/80) [facility] Start: 03-17-2023 Mammography [facility] Start: 03-17-2023 Screening for malignant neoplasm of breast Mammogram Screening [facility] Start: 03-03-2023 Hemoglobin A1c/Hemoglobin.total in Blood HBA1C [facility] Start: 02-25-2023 ANNUAL PCP TEAM CHRONIC DISEASE VISIT ANNUAL PCP TEAM CHRONIC DISEASE VISIT [facility] Start: 02-25-2023 COVID-19 VACCINE (3 - Booster for Pfizer series) COVID-19 VACCINE (3 - Booster for Pfizer series) [facility] Comment on above: Postponed from 11/22/2021 (Declined at t his time) Postponed from 08/19 (Declined at this time) Start: 02-09-2023 Glaucoma screening Dilated Retinal Exam [facility] Start: 02-09-2023 Hepatitis C antibody, confirmatory test DILATED RETINAL EXAM [facility] Start: 11-04-2022 ANNUAL PCP TEAM CHRONIC DISEASE VISIT ANNUAL PCP TEAM CHRONIC DISEASE VISIT [facility] Start: 11-04-2022 BP CONTROLLED (<130/80) BP CONTROLLED (<130/80) [facility] Start: 10-29-2022 Hepatitis B screening URINE ALBUMIN:CREATININE RATIO [facility] Start: 10-29-2022 Hepatitis B surface antibody level LDL CHOLESTEROL [facility] Start: 08-13-2022 Hemoglobin A1c/Hemoglobin.total in Blood HBA1C [facility] Start: 08-10-2022 End: 10-10-2022 Ferritin [Mass/volume] in Serum or Plasma [facility] Work Phone: Comment on above: Expected: 08/10/2022, Expires: 3 Start: 07-04-2022 3 comp foot exam completed DIABETIC FOOT EXAM [facility] Start: 2022 Hepatitis B Vaccine (1 of 3 - Risk 3-dose series) Hepatitis B Vaccine (1 of 3 - Risk 3-dose series) [facility] Start: 2022 RSV Vaccine (1 - 1-dose 60+ series) RSV Vaccine (1 - 1-dose 60+ series) [facility] Start: 2022 RSV Vaccine (1 - Risk 60-74 years 1-dose series) RSV Vaccine (1 - Risk 60-74 years 1-dose series) [facility] Start: 04-30-2022 Influenza vaccination INFLUENZA (#1) [facility] Start: 04-08-2022 Hemoglobin A1c/Hemoglobin.total in Blood HBA1C [facility] Start: 02-28-2022 Mammography MAMMOGRAM [facility] Start: 02-07-2022 End: 04-09-2022 Basic metabolic 2000 panel - Serum or Plasma BASIC METABOLIC PNL Lab Routine Type 2 diabetes mellitus with diabetic neuropathy, with long-term current use of insulin (HCC) Expected: 02/07/2022, Expires: 04/09/2022 [facility] Work Phone: Comment on above: Expected: 02/07/2022, Expires: 2 Start: 02-07-2022 End: 04-09-2022 CBC panel - Blood by Automated count CBC Lab Routine S/P cervical spinal fusion Expected: 02/07/2022, Expires: 04/09/2022 [facility] Work Phone: Comment on above: Expected: 02/07/2022, Expires: 2 Start: 02-07-2022 End: 04-09-2022 Hemoglobin A1c in Blood HGB A1C Lab Routine Type 2 diabetes mellitus with diabetic neuropathy, with long-term current use of insulin (HCC) Expected: 02/07/2022, Expires: 04/09/2022 [facility] Work Phone: Comment on above: Expected: 02/07/2022, Expires: 2 Start: 11-22-2021 COVID-19 VACCINE (3 - Booster for Pfizer series) COVID-19 VACCINE (3 - Booster for Pfizer series) [facility] Start: 09-28-2021 Hepatitis C antibody, confirmatory test DILATED RETINAL EXAM [facility] Start: 08-19-2021 COVID-19 VACCINE (3 - Pfizer series) COVID-19 VACCINE (3 - Pfizer series) [facility] Start: 07-12-2021 Influenza vaccination LUNG CANCER SCREENING [facility] Start: 07-05-2020 BP CONTROLLED (<130/80) BP CONTROLLED (<130/80) [facility] in Start: 07-11-2018 Creatinine measurement Creatinine monitoring [place], [place] Start: 07-11-2018 Potassium monitoring Potassium monitoring [place], [place] Start: 09-29-2017 Diabetic microalbuminuria test Diabetic microalbuminuria test [place], [place] Start: 09-29-2017 HbA1c (Bld) [Mass fraction] A1C test (Diabetic or Prediabetic) [place], [place] Start: 03-17-2017 Lipid panel Lipid screen [place] Start: 12-23-2016 Diabetic foot examination Diabetic foot exam [place], [place] Start: 2012 Screening for malignant neoplasm of breast Breast cancer screen [place], [place] Start: 2012 Screening for malignant neoplasm of colon Colon cancer screen colonoscopy [place], [place] Start: 2012 Shingles Vaccine (1 of 2) Shingles Vaccine (1 of 2) [place] Start: 2012 SHINGRIX VACCINE (1 of 2) SHINGRIX VACCINE (1 of 2) [facility] Start: 06-14-2009 PNEUMOCOCCAL (2 - PCV) PNEUMOCOCCAL (2 - PCV) [facility] Start: 2007 COLOGUARD (FIT-DNA) COLOGUARD (FIT-DNA) [facility] Start: [address] COLONOGRAPHY [facility] Start: 2007 FECAL OCCULT BLOOD FECAL OCCULT BLOOD [facility] Start: 2007 Screening for malignant neoplasm of colon [facility] Start: 2007 SIGMOIDOSCOPY SIGMOIDOSCOPY [facility] Start: 1983 Screening for malignant neoplasm of cervix Cervical cancer screen [place], [place] Start: 1981 HEPATITIS B (1 of 3 - Risk 3-dose series) HEPATITIS B (1 of 3 - Risk 3-dose series) [facility] Start: 1981 Hepatitis B vaccine (1 of 3 - Risk 3-dose series) Hepatitis B vaccine (1 of 3 - Risk 3-dose series) [place], [place] Start: 1980 Anxiety Screening Anxiety Screening [facility] Start: 1977 HIV screening HIV screen [place], [place] Start: 1972 Diabetic retinal exam Diabetic retinal exam [place], [place] Start: 1962 Hepatitis C screening Hepatitis C screen [place], [place] Bacteria identified in Unspecified specimen by Respiratory culture BACTERIAL CULTURE AND GRAM STAIN, RESPIRATORY, SPUTUM AND TRACHEAL ASPIRATE Microbiology Routine Persistent cough for 3 weeks or longer Ordered: 12/06/2024 [facility] Work Phone: Comment on above: Ordered: 12/06/2024 Comprehensive metabo lic 2000 panel - Serum or Plasma [facility] End: 11-19-2025 CT Chest for screening WO contrast CT LUNG SCREEN WO IVCON Radiology Routine Encounter for screening for malignant neoplasm of respiratory organs Personal history of tobacco use 1 Occurrences starting 10/20/2024 until 11/19/2025 [facility] Work Phone: Comment on above: 1 Occurrences starting 10/20/2024 until 11/19/2025 CT Chest for screeni ng WO contrast CT LUNG SCREEN WO IVCON Radiology Routine Encounter for screening for malignant neoplasm of respiratory organs Personal history of tobacco use 12/06/2024 1:19 PM EDT [facility] Work Phone: End: 12-03-2024 CT Head WO contrast CT BRAIN WO IVCON Radiology Routine Seizure-like activity (HCC) 1 Occurrences starting 11/04/2023 until 12/03/2024 [facility] Work Phone: Comment on above: 1 Occurrences starting 11/04/2023 until 12/03/2024 End: 05-13-2023 CT LUNG SCREEN WO IVCON CT LUNG SCREEN WO IVCON Radiology Routine Encounter for screening for lung cancer Former smoker 1 Occurrences starting 04/14/2022 until 05/13/2023 [facility] Work Phone: Comment on above: 1 Occurrences starting 04/14/2022 until 05/13/2023 End: 01-29-2024 CT LUNG SCREEN WO IVCON CT LUNG SCREEN WO IVCON Radiology Routine Former cigarette smoker Encounter for screening for malignant neoplasm of lung 1 Occurrences starting 03/19/2023 until 01/29/2024 [facility] Work Phone: Comment on above: 1 Occurrences starting 03/19/2023 until 01/29/2024 End: 04-23-2023 Diagnostic mammography computer-aided detcj [facility] DIAGNOSTIC RT Radiology Routine Abnormal screening mammogram 1 Occurrences starting 03/24/2022 until 04/23/2023 [facility] Work Phone: Comment on above: 1 Occurrences starting 03/24/2022 until 04/23/2023 End: 05-08-2024 ECG COMPLETE ECG COMPLETE ECG Routine Continuous epigastric pain 1 Occurrences starting 05/08/2023 until 05/08/2024 [facility] Work Phone: Comment on above: 1 Occurrences starting 05/08/2023 until 05/08/2024 End: 06-16-2024 ECG COMPLETE ECG COMPLETE ECG Routine Syncope, unspecified syncope type 1 Occurrences starting 06/16/2023 until 06/16/2024 [facility] Work Phone: Comment on above: 1 Occurrences starting 06/16/2023 until 06/16/2024 End: 11-17-2024 Echocardiography ECHO Cardiology Routine Seizure-like activity (HCC) Postural dizziness 1 Occurrences starting 11/18/2023 until 11/17/2024 [facility] Work Phone: Comment on above: 1 Occurrences starting 11/18/2023 until 11/17/2024 Eeg complete std phys/qhp>36 hr<60 hr w/o video EEG COMPLETE STD PHYS/QHP&GT;36 HR&LT;60 HR W/O VIDEO Procedures Routine Seizure-like activity (HCC) Ordered: 11/04/2023 [facility] Work Phone: Comment on above: Ordered: 11/04/2023 End: 11-07-2024 EPIL EEG ROUTINE EPIL EEG ROUTINE NEUROLOGY Routine Seizure-like activity (HCC) 1 Occurrences starting 11/10/2023 until 11/07/2024 [facility] Work Phone: Comment on above: 1 Occurrences starting 11/10/2023 until 11/07/2024 IMAGING GUIDED ASP/I [place] HIP JT/BURSA RIGHT IMAGING GUIDED ASP/INJ HIP JT/BURSA RIGHT Radiology Routine Acute right hip pain Primary osteoarthritis of both hips Ordered: 06/22/2022 [facility] Work Phone: Comment on above: Ordered: 06/22/2022 Lipid 1996 panel - S luna or Plasma [facility] End: 03-27-2023 LUNG DIFFUSION CAPACITY (DLCO) LUNG DIFFUSION CAPACITY (DLCO) PFT Routine Chronic cough Wheezing 1 Occurrences starting 02/25/2022 until 03/27/2023 [facility] Work Phone: Comment on above: 1 Occurrences starting 02/25/2022 until 03/27/2023 End: 01-05-2026 LUNG DIFFUSION CAPACITY (DLCO) LUNG DIFFUSION CAPACITY (DLCO) PFT Routine Chronic cough 1 Occurrences starting 12/06/2024 until 01/05/2026 [facility] Comment on above: 1 Occurrences starting 12/06/2024 until 01/05/2026 LUNG DIFFUSION CAPAC ITY (DLCO) LUNG DIFFUSION CAPACITY (DLCO) PFT Routine Chronic cough 02/12/2025 12:37 PM EDT [facility] Work Phone: End: 03-27-2023 LUNG VOLUMES LUNG VOLUMES PFT Routine Chronic cough Wheezing 1 Occurrences starting 02/25/2022 until 03/27/2023 [facility] Work Phone: Comment on above: 1 Occurrences starting 02/25/2022 until 03/27/2023 End: 01-05-2026 LUNG VOLUMES LUNG VOLUMES PFT Routine Chronic cough 1 Occurrences starting 12/06/2024 until 01/05/2026 [facility] Comment on above: 1 Occurrences starting 12/06/2024 until 01/05/2026 LUNG VOLUMES LUNG VOLUMES PFT Routine Chronic cough 02/12/2025 12:37 PM EDT [facility] Work Phone: End: 09-02-2024 SIMEON SCREENING SIMEON SCREENING Radiology Routine Encounter for screening mammogram for breast cancer 1 Occurrences starting 08/04/2023 until 09/02/2024 [facility] Work Phone: Comment on above: 1 Occurrences starting 08/04/2023 until 09/02/2024 End: 09-25-2023 SIMEON SCREENING W JUAN A SIMEON SCREENING W JUAN A Radiology Routine Encounter for screening mammogram for malignant neoplasm of breast 1 Occurrences starting 08/26/2022 until 09/25/2023 [facility] Work Phone: Comment on above: 1 Occurrences starting 08/26/2022 until 09/25/2023 Microorganism identi fied in Unspecified specimen by Culture AFB CULTURE AND STAIN Microbiology Routine Persistent cough for 3 weeks or longer Ordered: 12/06/2024 [facility] Comment on above: Ordered: 12/06/2024 End: 12-23-2024 MR Brain WO contrast MRI BRAIN WO IVCON Radiology Routine Convulsions, unspecified convulsion type (HCC) 1 Occurrences starting 11/24/2023 until 12/23/2024 [facility] Work Phone: Comment on above: 1 Occurrences starting 11/24/2023 until 12/23/2024 MR Brain WO contrast MRI BRAIN W O IVCON Radiology Routine Convulsions, unspecified convulsion type (HCC) 03/10/2024 11:48 AM EDT [facility] Work Phone: End: 01-05-2026 NITRIC OXIDE, EXHALED NITRIC OXIDE, EXHALED PFT Routine Chronic cough 1 Occurrences starting 12/06/2024 until 01/05/2026 [facility] Comment on above: 1 Occurrences starting 12/06/2024 until 01/05/2026 Patient Education [facility] Work Phone: Patient referral [facility] Work Phone: End: 03-27-2023 Screening mammography bi 2-view breast inc cad [facility] SCREENING Radiology Routine Encounter for screening mammogram for breast cancer 1 Occurrences starting 02/25/2022 until 03/27/2023 [facility] Work Phone: Comment on above: 1 Occurrences starting 02/25/2022 until 03/27/2023 End: 03-27-2023 SPIROMETRY - BASELINE AND POST DILATOR SPIROMETRY - BASELINE AND POST DILATOR PFT Routine Chronic cough Wheezing 1 Occurrences starting 02/25/2022 until 03/27/2023 [facility] Work Phone: Comment on above: 1 Occurrences starting 02/25/2022 until 03/27/2023 End: 01-05-2026 SPIROMETRY WITH DILATOR IF OBSTRUCTED SPIROMETRY WITH DILATOR IF OBSTRUCTED PFT Routine Chronic cough 1 Occurrences starting 12/06/2024 until 01/05/2026 [facility] Work Phone: Comment on above: 1 Occurrences starting 12/06/2024 until 01/05/2026 SPIROMETRY WITH DILA TOR IF OBSTRUCTED SPIROMETRY WITH DILATOR IF OBSTRUCTED PFT Routine Chronic cough 02/12/2025 12:37 PM EDT [facility] Work Phone: STREP A MOLECULAR (POC) STREP A MOLECULAR (POC) Microbiology Routine Sore throat Ordered: 03/08/2024 [facility] Work Phone: Comment on above: Ordered: 03/08/2024 SURGICAL PATHOLOGY SURGICAL PATH OLOGY Lab Routine Vulvar lesion Vulvovaginal condyloma 09/11/2022 12:02 PM EST [facility] Work Phone: Urine culture [facility] End: 04-23-2023 Us breast uni real time with image limited US BREAST LTD RT Radiology Routine Abnormal screening mammogram 1 Occurrences starting 03/24/2022 until 04/23/2023 [facility] Work Phone: Comment on above: 1 Occurrences starting 03/24/2022 until 04/23/2023 [facility] Immunizations Immunization Date Immunization Notes Care Provider [facility] 06-16-2024 influenza, seasonal, injectable Zachary Toney MD Work Phone: [facility] 06-16-2024 influenza virus vaccine, unspecified formulation Javier Holt DO Work Phone: [facility] 05-08-2023 influenza, injectabl e, quadrivalent, contains preservative Zachary Toney MD Work Phone: [facility] 05-08-2023 influenza virus vaccine, unspecified formulation Zachary Toney MD Work Phone: [facility] 06-15-2022 influenza, injectabl e, quadrivalent, contains preservative Zachary Toney MD Work Phone: [facility] Work Phone: 02-25-2022 pneumococcal (PCV20) vaccine, 20 valent (PREVNAR 20) Priyanka 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 Work Phone: [facility] 02-25-2022 pneumococcal Conjuga te, unspecified formulation Priyanka 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 Work Phone: [facility] Work Phone: 06-24-2021 COVID-19 vaccine, ag e 12+ yr ([facility]) Ami David PT, DPT Work Phone: [facility] Work Phone: 06-03-2021 influenza, injectabl e, quadrivalent, preservative free Zachary Toney MD Work Phone: [facility] 07-02-2020 tetanus toxoid, redu dayo diphtheria toxoid, and acellular pertussis vaccine, adsorbed Ami Linnean PT, DPT Work Phone: [facility] 06-24-2020 influenza, injectabl e, quadrivalent, contains preservative Ami Linnean PT, DPT Work Phone: [facility] 07-05-2019 influenza, injectabl e, quadrivalent, contains preservative Ami Linnean PT, DPT Work Phone: [facility] Work Phone: 07-19-2018 influenza, injectabl e, quadrivalent, contains preservative Ami Linnean PT, DPT Work Phone: [facility] Work Phone: 01-25-2018 tuberculin skin test ; purified protein derivative solution, intradermal Ami Paul MURPHYN.FORMING MACHINE TENDER Work Phone: [facility] 06-28-2017 influenza, injectabl e, quadrivalent, contains preservative Ami Linnean PT, DPT Work Phone: [facility] 05-28-2016 influenza, injectabl e, quadrivalent, contains preservative Ami Linnean PT, DPT Work Phone: [facility] 06-11-2014 influenza, seasonal, injectable Ami Linnean PT, DPT Work Phone: [facility] 07-16-2010 influenza virus vaccine, unspecified formulation Ami Linnean PT, DPT Work Phone: [facility] Work Phone: 06-25-2009 influenza virus vaccine, unspecified formulation Ami Linnean PT, DPT Work Phone: [facility] Work Phone: 12-28-2008 tetanus toxoid, redu dayo diphtheria toxoid, and acellular pertussis vaccine, adsorbed Ami Linnean PT, DPT Work Phone: [facility] Work Phone: 06-14-2008 pneumococcal polysaccharide vaccine, 23 valent Ami David PT, DPT Work Phone: [facility] Work Phone: 07-02-2006 influenza virus vaccine, unspecified formulation Ami David PT, DPT Work Phone: [facility] Work Phone: Payers Date Payer Category Payer Self-pay [id number] 2023 Medicare (Managed Care) [facility] HMO [id number] 2023 Unknown 2023 Medicare [id number] 2023 Unknown [id number] 2022 Medicare MEDICARE MEDICAR E A AND B [id number] 2022-Present [phone] [place] [address] Medicare [id number] 2020 Medicaid [place] [employer] [id number] 2020-Present [phone] [address] [place] [address] Medicaid [id number] 2020 Medicaid [id number] 2015 Unknown [id number] Medicare MEDICARE PART A B [id number] 1 [id number] Unknown [id number] Unknown [id number] Unknown [id number] Unknown [id number] Unknown [id number] Unknown [id number] 462 Unknown [id number] 462 Unknown [id number] 462 Unknown [id number] Unknown [id number] Unknown [id number] 462 Social History Date Type Detail Facility Start: 07-12-2020 End: 04-05-2025 Tobacco smoking status [facility] Former smoker [facility] Work Phone: Start: 07-12-2020 End: 12-06-2024 Tobacco use and exposure Never used JEANIE Rivera Start: 07-12-2020 End: 10-03-2021 Alcohol intake Current drinker of alcohol (finding) Ana Jauregui JEANIE MATHEW Start: 12-24-2015 Alcohol Comment occasionally Ana perales JEANIE MATHEW Start: 1960 Sex [facility]igned [facility] on [facility] Start: 11-26-2021 End: 12-17-2023 Tobacco smoking status NHIS Unknown if ever smoked [facility] Start: 09-22-2019 Cigarettes [facility] Start: 1960 Sex Assigned At Female W [facility] Start: 11-30-1974 End: 12-12-2008 History of tobacco use Current smoker [facility] Work Phone: Start: 11-30-1974 End: 12-12-2008 History of tobacco use Cigarette Smoker [facility] Work Phone: Start: 11-04-2021 End: 02-01-2023 Alcohol intake [facility] Start: 07-01-2020 History SDOH Alcohol Frequency 2 [facility] Start: 07-01-2020 History SDOH Alcohol Std Drinks 1 [facility] Start: 01-11-2014 History SDOH Alcohol Comment Occasionally [facility] Start: 07-01-2020 History SDOH Social Connections Phone 5 [facility] Start: 07-01-2020 History SDOH Physica l Activity MPS 0 [facility] Start: 07-01-2020 History SDOH Stress 4 [facility] Start: 07-01-2020 Education 10 [facility] Start: 09-03-2021 End: 06-22-2022 Exposure to SARS-CoV-2 (event) Not sure [facility] Start: 03-23-2022 End: 04-02-2022 Exposure to SARS-CoV-2 (event) Unable to assess [facility] Work Phone: Start: 07-01-2020 End: 02-01-2023 Tobacco use panel [facility] Start: 07-31-2012 National Score (1-10 0), lower number is lower risk 99 [facility] Work Phone: Do you belong to any clubs or organizations such as uatsdin groups, unions, fraternal or athletic groups, or school groups? No [facility] Are you now , , , , never or living with a partner? [facility] How often to you hav e a drink containing alcohol? Monthly or less [facility] How many standard drinks containing alcohol do you have on a typical day? 1 or 2 [facility] How often do you hav e 6 or more drinks on 1 occasion? Never [facility] How hard is it for y ou to pay for the very basics like food, housing, medical care, and heating Very hard [facility] Do you feel stress - tense, restless, nervous, or anxious, or unable to sleep at night because your mind is troubled all the time - these days [OSQ] Rather much [facility] (I/We) worried wheth er (my/our) food would run out before (I/we) got money to buy more. Never true [facility] The food that (I/we) bought just didn't last, and (I/we) didn't have money to get more. Sometimes true [facility] In the past 12 month s, was there a time when you were not able to pay the mortgage or rent on time? Yes [facility] Start: 11-24-2023 End: 12-06-2024 Alcohol intake Ex-drinker (finding) [facility] NEGATED: Highlighted row [facility] Medical Equipment Procedure Code Equipment Code Equipment Origin al Text Equipment Identifier Dates Discectomy, spine, cervical, anterior approach, with fusion CERVICAL SCREW BLUEWATER FDA Start: 12-09-2021 Discectomy, spine, cervical, anterior approach, with fusion F3D cervical FDA Start: 12-09-2021 Discectomy, spine, cervical, anterior approach, with fusion FIXATION PIN BLUEWATER FDA Start: 12-09-2021 Discectomy, spine, cervical, anterior approach, with fusion FIXATION PIN BLUEWATER FDA Start: 12-09-2021 Discectomy, spine, cervical, anterior approach, with fusion PATCH,AMNION 2X3CM FDA Start: 12-09-2021 Discectomy, spine, cervical, anterior approach, with fusion PATCH,AMNION 2X3CM FDA Start: 12-09-2021 Discectomy, spine, cervical, anterior approach, with fusion SPIDER CERVICAL PLATE FDA Start: 12-09-2021 Discectomy, spine, cervical, anterior approach, with fusion STRIP,BONE CANC [id number] FDA Start: 12-09-2021 Discectomy, spine, cervical, anterior approach, with fusion STRIP,BONE CANC [id number] FDA Start: 12-09-2021 Discectomy, spine, cervical, anterior approach, with fusion foundation 3D cervical FDA Start: 12-09-2021 Discectomy, spine, cervical, anterior approach, with fusion CERVICAL SCREW BLUEWATER FDA Start: 12-09-2021 Discectomy, spine, cervical, anterior approach, with fusion CERVICAL SCREW BLUEWATER FDA Start: 12-09-2021 Discectomy, spine, cervical, anterior approach, with fusion CERVICAL SCREW BLUEWATER FDA Start: 12-09-2021 Discectomy, spine, cervical, anterior approach, with fusion CERVICAL SCREW BLUEWATER FDA Start: 12-09-2021 Discectomy, spine, cervical, anterior approach, with fusion CERVICAL SCREW BLUEWATER FDA Start: 12-09-2021 Discectomy, spine, cervical, anterior approach, with fusion CERVICAL SCREW BLUEWATER FDA Start: 12-09-2021 Discectomy, spine, cervical, anterior approach, with fusion CERVICAL SCREW BLUEWATER FDA Start: 12-09-2021 Discectomy, spine, cervical, anterior approach, with fusion F3D CERVICAL FDA Start: 12-09-2021 Discectomy, spine, cervical, anterior approach, with fusion CERVICAL SCREW BLUEWATER FDA Start: 12-09-2021 Discectomy, spine, cervical, anterior approach, with fusion F3D cervical FDA Start: 12-09-2021 Discectomy, spine, cervical, anterior approach, with fusion FIXATION PIN BLUEWATER FDA Start: 12-09-2021 Discectomy, spine, cervical, anterior approach, with fusion FIXATION PIN BLUEWATER FDA Start: 12-09-2021 Discectomy, spine, cervical, anterior approach, with fusion PATCH,AMNION 2X3CM FDA Start: 12-09-2021 Discectomy, spine, cervical, anterior approach, with fusion PATCH,AMNION 2X3CM FDA Start: 12-09-2021 Discectomy, spine, cervical, anterior approach, with fusion SPIDER CERVICAL PLATE FDA Start: 12-09-2021 Discectomy, spine, cervical, anterior approach, with fusion STRIP,BONE CANC [id number] FDA Start: 12-09-2021 Discectomy, spine, cervical, anterior approach, with fusion STRIP,BONE CANC [id number] FDA Start: 12-09-2021 Discectomy, spine, cervical, anterior approach, with fusion foundation 3D cervical FDA Start: 12-09-2021 Discectomy, spine, cervical, anterior approach, with fusion CERVICAL SCREW BLUEWATER FDA Start: 12-09-2021 Discectomy, spine, cervical, anterior approach, with fusion CERVICAL SCREW BLUEWATER FDA Start: 12-09-2021 Discectomy, spine, cervical, anterior approach, with fusion CERVICAL SCREW BLUEWATER FDA Start: 12-09-2021 Discectomy, spine, cervical, anterior approach, with fusion CERVICAL SCREW BLUEWATER FDA Start: 12-09-2021 Discectomy, spine, cervical, anterior approach, with fusion CERVICAL SCREW BLUEWATER FDA Start: 12-09-2021 Discectomy, spine, cervical, anterior approach, with fusion CERVICAL SCREW BLUEWATER FDA Start: 12-09-2021 Discectomy, spine, cervical, anterior approach, with fusion CERVICAL SCREW BLUEWATER FDA Start: 12-09-2021 Discectomy, spine, cervical, anterior approach, with fusion F3D CERVICAL FDA Start: 12-09-2021 Discectomy, spine, cervical, anterior approach, with fusion CERVICAL SCREW BLUEWATER FDA Start: 12-09-2021 Discectomy, spine, cervical, anterior approach, with fusion F3D cervical FDA Start: 12-09-2021 Discectomy, spine, cervical, anterior approach, with fusion FIXATION PIN BLUEWATER FDA Start: 12-09-2021 Discectomy, spine, cervical, anterior approach, with fusion FIXATION PIN BLUEWATER FDA Start: 12-09-2021 Discectomy, spine, cervical, anterior approach, with fusion PATCH,AMNION 2X3CM FDA Start: 12-09-2021 Discectomy, spine, cervical, anterior approach, with fusion PATCH,AMNION 2X3CM FDA Start: 12-09-2021 Discectomy, spine, cervical, anterior approach, with fusion SPIDER CERVICAL PLATE FDA Start: 12-09-2021 Discectomy, spine, cervical, anterior approach, with fusion STRIP,BONE CANC [id number] FDA Start: 12-09-2021 Discectomy, spine, cervical, anterior approach, with fusion STRIP,BONE CANC [id number] FDA Start: 12-09-2021 Discectomy, spine, cervical, anterior approach, with fusion foundation 3D cervical FDA Start: 12-09-2021 Discectomy, spine, cervical, anterior approach, with fusion CERVICAL SCREW BLUEWATER FDA Start: 12-09-2021 Discectomy, spine, cervical, anterior approach, with fusion CERVICAL SCREW BLUEWATER FDA Start: 12-09-2021 Discectomy, spine, cervical, anterior approach, with fusion CERVICAL SCREW BLUEWATER FDA Start: 12-09-2021 Discectomy, spine, cervical, anterior approach, with fusion CERVICAL SCREW BLUEWATER FDA Start: 12-09-2021 Discectomy, spine, cervical, anterior approach, with fusion CERVICAL SCREW BLUEWATER FDA Start: 12-09-2021 Discectomy, spine, cervical, anterior approach, with fusion CERVICAL SCREW BLUEWATER FDA Start: 12-09-2021 Discectomy, spine, cervical, anterior approach, with fusion CERVICAL SCREW BLUEWATER FDA Start: 12-09-2021 Discectomy, spine, cervical, anterior approach, with fusion F3D CERVICAL FDA Start: 12-09-2021 Discectomy, spine, cervical, anterior approach, with fusion CERVICAL SCREW BLUEWATER FDA Start: 12-09-2021 Discectomy, spine, cervical, anterior approach, with fusion F3D cervical FDA Start: 12-09-2021 Discectomy, spine, cervical, anterior approach, with fusion FIXATION PIN BLUEWATER FDA Start: 12-09-2021 Discectomy, spine, cervical, anterior approach, with fusion FIXATION PIN BLUEWATER FDA Start: 12-09-2021 Discectomy, spine, cervical, anterior approach, with fusion PATCH,AMNION 2X3CM FDA Start: 12-09-2021 Discectomy, spine, cervical, anterior approach, with fusion PATCH,AMNION 2X3CM FDA Start: 12-09-2021 Discectomy, spine, cervical, anterior approach, with fusion SPIDER CERVICAL PLATE FDA Start: 12-09-2021 Discectomy, spine, cervical, anterior approach, with fusion STRIP,BONE CANC [id number] FDA Start: 12-09-2021 Discectomy, spine, cervical, anterior approach, with fusion STRIP,BONE CANC [id number] FDA Start: 12-09-2021 Discectomy, spine, cervical, anterior approach, with fusion foundation 3D cervical FDA Start: 12-09-2021 Discectomy, spine, cervical, anterior approach, with fusion CERVICAL SCREW BLUEWATER FDA Start: 12-09-2021 Discectomy, spine, cervical, anterior approach, with fusion CERVICAL SCREW BLUEWATER FDA Start: 12-09-2021 Discectomy, spine, cervical, anterior approach, with fusion CERVICAL SCREW BLUEWATER FDA Start: 12-09-2021 Discectomy, spine, cervical, anterior approach, with fusion CERVICAL SCREW BLUEWATER FDA Start: 12-09-2021 Discectomy, spine, cervical, anterior approach, with fusion CERVICAL SCREW BLUEWATER FDA Start: 12-09-2021 Discectomy, spine, cervical, anterior approach, with fusion CERVICAL SCREW BLUEWATER FDA Start: 12-09-2021 Discectomy, spine, cervical, anterior approach, with fusion CERVICAL SCREW BLUEWATER FDA Start: 12-09-2021 Discectomy, spine, cervical, anterior approach, with fusion F3D CERVICAL FDA Start: 12-09-2021 Discectomy, spine, cervical, anterior approach, with fusion CERVICAL SCREW BLUEWATER FDA Start: 12-09-2021 Discectomy, spine, cervical, anterior approach, with fusion F3D cervical FDA Start: 12-09-2021 Discectomy, spine, cervical, anterior approach, with fusion FIXATION PIN BLUEWATER FDA Start: 12-09-2021 Discectomy, spine, cervical, anterior approach, with fusion FIXATION PIN BLUEWATER FDA Start: 12-09-2021 Discectomy, spine, cervical, anterior approach, with fusion PATCH,AMNION 2X3CM FDA Start: 12-09-2021 Discectomy, spine, cervical, anterior approach, with fusion PATCH,AMNION 2X3CM FDA Start: 12-09-2021 Discectomy, spine, cervical, anterior approach, with fusion SPIDER CERVICAL PLATE FDA Start: 12-09-2021 Discectomy, spine, cervical, anterior approach, with fusion STRIP,BONE CANC [id number] FDA Start: 12-09-2021 Discectomy, spine, cervical, anterior approach, with fusion STRIP,BONE CANC [id number] FDA Start: 12-09-2021 Discectomy, spine, cervical, anterior approach, with fusion foundation 3D cervical FDA Start: 12-09-2021 Discectomy, spine, cervical, anterior approach, with fusion CERVICAL SCREW BLUEWATER FDA Start: 12-09-2021 Discectomy, spine, cervical, anterior approach, with fusion CERVICAL SCREW BLUEWATER FDA Start: 12-09-2021 Discectomy, spine, cervical, anterior approach, with fusion CERVICAL SCREW BLUEWATER FDA Start: 12-09-2021 Discectomy, spine, cervical, anterior approach, with fusion CERVICAL SCREW BLUEWATER FDA Start: 12-09-2021 Discectomy, spine, cervical, anterior approach, with fusion CERVICAL SCREW BLUEWATER FDA Start: 12-09-2021 Discectomy, spine, cervical, anterior approach, with fusion CERVICAL SCREW BLUEWATER FDA Start: 12-09-2021 Discectomy, spine, cervical, anterior approach, with fusion CERVICAL SCREW BLUEWATER FDA Start: 12-09-2021 Discectomy, spine, cervical, anterior approach, with fusion F3D CERVICAL FDA Start: 12-09-2021 Discectomy, spine, cervical, anterior approach, with fusion CERVICAL SCREW BLUEWATER FDA Start: 12-09-2021 Discectomy, spine, cervical, anterior approach, with fusion F3D cervical FDA Start: 12-09-2021 Discectomy, spine, cervical, anterior approach, with fusion FIXATION PIN BLUEWATER FDA Start: 12-09-2021 Discectomy, spine, cervical, anterior approach, with fusion FIXATION PIN BLUEWATER FDA Start: 12-09-2021 Discectomy, spine, cervical, anterior approach, with fusion PATCH,AMNION 2X3CM FDA Start: 12-09-2021 Discectomy, spine, cervical, anterior approach, with fusion PATCH,AMNION 2X3CM FDA Start: 12-09-2021 Discectomy, spine, cervical, anterior approach, with fusion SPIDER CERVICAL PLATE FDA Start: 12-09-2021 Discectomy, spine, cervical, anterior approach, with fusion STRIP,BONE CANC [id number] FDA Start: 12-09-2021 Discectomy, spine, cervical, anterior approach, with fusion STRIP,BONE CANC [id number] FDA Start: 12-09-2021 Discectomy, spine, cervical, anterior approach, with fusion foundation 3D cervical FDA Start: 12-09-2021 Discectomy, spine, cervical, anterior approach, with fusion CERVICAL SCREW BLUEWATER FDA Start: 12-09-2021 Discectomy, spine, cervical, anterior approach, with fusion CERVICAL SCREW BLUEWATER FDA Start: 12-09-2021 Discectomy, spine, cervical, anterior approach, with fusion CERVICAL SCREW BLUEWATER FDA Start: 12-09-2021 Discectomy, spine, cervical, anterior approach, with fusion CERVICAL SCREW BLUEWATER FDA Start: 12-09-2021 Discectomy, spine, cervical, anterior approach, with fusion CERVICAL SCREW BLUEWATER FDA Start: 12-09-2021 Discectomy, spine, cervical, anterior approach, with fusion CERVICAL SCREW BLUEWATER FDA Start: 12-09-2021 Discectomy, spine, cervical, anterior approach, with fusion CERVICAL SCREW BLUEWATER FDA Start: 12-09-2021 Discectomy, spine, cervical, anterior approach, with fusion F3D CERVICAL FDA Start: 12-09-2021 Discectomy, spine, cervical, anterior approach, with fusion CERVICAL SCREW BLUEWATER FDA Start: 12-09-2021 Discectomy, spine, cervical, anterior approach, with fusion F3D cervical FDA Start: 12-09-2021 Discectomy, spine, cervical, anterior approach, with fusion FIXATION PIN BLUEWATER FDA Start: 12-09-2021 Discectomy, spine, cervical, anterior approach, with fusion FIXATION PIN BLUEWATER FDA Start: 12-09-2021 Discectomy, spine, cervical, anterior approach, with fusion PATCH,AMNION 2X3CM FDA Start: 12-09-2021 Discectomy, spine, cervical, anterior approach, with fusion PATCH,AMNION 2X3CM FDA Start: 12-09-2021 Discectomy, spine, cervical, anterior approach, with fusion SPIDER CERVICAL PLATE FDA Start: 12-09-2021 Discectomy, spine, cervical, anterior approach, with fusion STRIP,BONE CANC [id number] FDA Start: 12-09-2021 Discectomy, spine, cervical, anterior approach, with fusion STRIP,BONE CANC [id number] FDA Start: 12-09-2021 Discectomy, spine, cervical, anterior approach, with fusion foundation 3D cervical FDA Start: 12-09-2021 Discectomy, spine, cervical, anterior approach, with fusion CERVICAL SCREW BLUEWATER FDA Start: 12-09-2021 Discectomy, spine, cervical, anterior approach, with fusion CERVICAL SCREW BLUEWATER FDA Start: 12-09-2021 Discectomy, spine, cervical, anterior approach, with fusion CERVICAL SCREW BLUEWATER FDA Start: 12-09-2021 Discectomy, spine, cervical, anterior approach, with fusion CERVICAL SCREW BLUEWATER FDA Start: 12-09-2021 Discectomy, spine, cervical, anterior approach, with fusion CERVICAL SCREW BLUEWATER FDA Start: 12-09-2021 Discectomy, spine, cervical, anterior approach, with fusion CERVICAL SCREW BLUEWATER FDA Start: 12-09-2021 Discectomy, spine, cervical, anterior approach, with fusion CERVICAL SCREW BLUEWATER FDA Start: 12-09-2021 Discectomy, spine, cervical, anterior approach, with fusion F3D CERVICAL FDA Start: 12-09-2021 Discectomy, spine, cervical, anterior approach, with fusion CERVICAL SCREW BLUEWATER FDA Start: 12-09-2021 Discectomy, spine, cervical, anterior approach, with fusion F3D cervical FDA Start: 12-09-2021 Discectomy, spine, cervical, anterior approach, with fusion FIXATION PIN [facility] FDA Start: 12-09-2021 Discectomy, spine, cervical, anterior approach, with fusion FIXATION PIN [facility] FDA Start: 12-09-2021 Discectomy, spine, cervical, anterior approach, with fusion PATCH,AMNION 2X3CM FDA Start: 12-09-2021 Discectomy, spine, cervical, anterior approach, with fusion PATCH,AMNION 2X3CM FDA Start: 12-09-2021 Discectomy, spine, cervical, anterior approach, with fusion SPIDER CERVICAL PLATE FDA Start: 12-09-2021 Discectomy, spine, cervical, anterior approach, with fusion STRIP,BONE CANC [id number] FDA Start: 12-09-2021 Discectomy, spine, cervical, anterior approach, with fusion STRIP,BONE CANC [id number] FDA Start: 12-09-2021 Discectomy, spine, cervical, anterior approach, with fusion foundation 3D cervical FDA Start: 12-09-2021 Discectomy, spine, cervical, anterior approach, with fusion CERVICAL SCREW [facility] FDA Start: 12-09-2021 Discectomy, spine, cervical, anterior approach, with fusion CERVICAL SCREW [facility] FDA Start: 12-09-2021 Discectomy, spine, cervical, anterior approach, with fusion CERVICAL SCREW [facility] FDA Start: 12-09-2021 Discectomy, spine, cervical, anterior approach, with fusion CERVICAL SCREW [facility] FDA Start: 12-09-2021 Discectomy, spine, cervical, anterior approach, with fusion CERVICAL SCREW [place] FDA Start: 12-09-2021 Discectomy, spine, cervical, anterior approach, with fusion CERVICAL SCREW [facility] FDA Start: 12-09-2021 Discectomy, spine, cervical, anterior approach, with fusion CERVICAL SCREW [facility] FDA Start: 12-09-2021 Discectomy, spine, cervical, anterior approach, with fusion F3D CERVICAL FDA Start: 12-09-2021 Discectomy, spine, cervical, anterior approach, with fusion CERVICAL SCREW [facility] FDA Start: 12-09-2021 Discectomy, spine, cervical, anterior approach, with fusion F3D cervical FDA Start: 12-09-2021 Discectomy, spine, cervical, anterior approach, with fusion FIXATION PIN [facility] FDA Start: 12-09-2021 Discectomy, spine, cervical, anterior approach, with fusion FIXATION PIN [facility] FDA Start: 12-09-2021 Discectomy, spine, cervical, anterior approach, with fusion PATCH,AMNION 2X3CM FDA Start: 12-09-2021 Discectomy, spine, cervical, anterior approach, with fusion PATCH,AMNION 2X3CM FDA Start: 12-09-2021 Discectomy, spine, cervical, anterior approach, with fusion SPIDER CERVICAL PLATE FDA Start: 12-09-2021 Discectomy, spine, cervical, anterior approach, with fusion STRIP,BONE CANC [id number] FDA Start: 12-09-2021 Discectomy, spine, cervical, anterior approach, with fusion STRIP,BONE CANC [id number] FDA Start: 12-09-2021 Discectomy, spine, cervical, anterior approach, with fusion foundation 3D cervical FDA Start: 12-09-2021 Discectomy, spine, cervical, anterior approach, with fusion CERVICAL SCREW [facility] FDA Start: 12-09-2021 Discectomy, spine, cervical, anterior approach, with fusion CERVICAL SCREW [facility] FDA Start: 12-09-2021 Discectomy, spine, cervical, anterior approach, with fusion CERVICAL SCREW [facility] FDA Start: 12-09-2021 Discectomy, spine, cervical, anterior approach, with fusion CERVICAL SCREW [facility] FDA Start: 12-09-2021 Discectomy, spine, cervical, anterior approach, with fusion CERVICAL SCREW [facility] FDA Start: 12-09-2021 Discectomy, spine, cervical, anterior approach, with fusion CERVICAL SCREW [facility] FDA Start: 12-09-2021 Discectomy, spine, cervical, anterior approach, with fusion CERVICAL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 Allergies: ALLERGIES Allergen Reactions Sulfa (Sulfonamide * Swelling, Itching Seasonal Allergies Intolerance Zocor [Simvastatin] Swelling Current Medications: Current Outpatient Medications Medication Sig Dispense Refill gabapentin (NEURONTIN) 300 mg capsule Take 1 capsule at around Noon, 1 capsule with dinner and 3 capsules at bedtime. 450 capsule 3 sertraline (ZOLOFT) 100 mg tablet Take 1 tablet by mouth once daily. 90 tablet 3 atorvastatin (LIPITOR) 40 mg tablet Take 1 tablet by mouth once daily. 90 tablet 3 lisinopril-hydroCHLOROthiazide (ZESTORETIC) 20-12.5 mg per tablet Take 2 tablets by mouth once daily. 180 tablet 3 metFORMIN ER (GLUCOPHAGE XR) 500 mg 24 hr tablet Take 1 tablet by mouth daily with breakfast. 90 tablet 3 omeprazole (PRILOSEC) 40 mg capsule Take 1 capsule by mouth two times a day. 180 capsule 3 traZODone (DESYREL) 100 mg tablet Take 1 tablet by mouth daily at bedtime. 90 tablet 3 dicyclomine (BENTYL) 10 mg capsule Take 10 mg by mouth three times a day. fexofenadine (MANJULA ALLERGY) 180 mg tablet Take 1 tablet by mouth once daily. 90 tablet 1 ergocalciferol 50,000 unit capsule (VITAMIN D2, DRISDOL) Take 1 capsule by mouth one time a week. Use as directed. 12 capsule 0 metoclopramide HCl (REGLAN) 10 mg tablet Take 1 tablet by mouth every 6 hours as needed (nausea, vomiting). 30min before meals. NOVOLOG U-100 INSULIN ASPART 100 unit/mL For insulin pump. Per endocrinology. estradiol (ESTRACE) 0.01 % (0.1 mg/gram) vaginal cream ondansetron orally disintegrating (ZOFRAN ODT) 4 mg disintegrating tablet Take 1 tablet by mouth every 8 hours as needed for nausea/vomiting. 20 tablet 0 mometasone (NASONEX) 50 mcg/actuation nasal spray Use 2 sprays in the nose once daily. 17 mL 2 No current facility-administered medications for this visit. PHYSICAL EXAM: BP 101/66 Pulse 59 Wt 171 lb (77.6kg) SpO2 97[ra]% General appearance: well appearing, in no acute distress, alert Skin: skin color normal, no rashes or lesions Eyes: Anicteric sclera. Extraocular movements are intact. Ears: External ears normal, canals clear Nose: Nasal mucosa appears normal Oropharynx: lips, mucosa, and tongue normal, oropharynx normal Respiratory: breathing comfortably on room air without accessory muscle use, lungs clear to auscultation, no wheezing or rhonchi; wet sounding cough appreciated Cardiovascular: S1, S2. RRR without murmur. No lower extremity edema Musculoskeletal: Extremities normal. No deformities or skin discoloration. Dexacom on left upper arm Neuro: Gait normal. Sensation grossly intact. Data Review: I personally reviewed, interpreted, and discussed the labs, PFTs and radiographs with the patient as noted below: LDCT chest 12/07/2024 Nodule 1: This Perifissural nodule is located in the Right major fissure on slice number 227 with an average diameter of 3.6 mm (4.6 mm x 2.6 mm). Nodule 2: This Calcified nodule is located in the Right Lower Lobe on slice number 258 with an average diameter of 2.6 mm (2.9 mm x 2.2 mm). Nodule 3: This Calcified nodule is located in the Left Upper Lobe on slice number 91 with an average diameter of 2.6 mm (2.9 mm x 2.2 mm). Nodule 4: This Calcified nodule is located in the Right Upper Lobe on slice number 228 with an average diameter of 2.2 mm (2.2 mm x 2.2 mm). Nodule 5: This Calcified nodule is located in the Right Middle Lobe on slice number 341 with an average diameter of 1.9 mm (2.2 mm x 1.6 mm). If this is an ANNUAL LDCT for [facility], please ensure nodule number is the same as in the prior evaluation. Other lung nodule comments: None Other findings: Mild diffuse bronchial wall thickening in both lungs suggestive of chronic airway inflammation. Linear atelectasis or mild scarring in the medial right lower lobe adjacent to prominent bony spurs/marginal osteophytes in the thoracic spine. Minimal subpleural fibrosis with reticular opacities again noted in the anterior and bilateral upper lobes. Mild mosaicism of the lung parenchyma suggestive of air trapping in the mid to lower lung zones. Subcentimeter calcification in the left thyroid lobe. Mild aortic root, aortic arch and descending aorta calcifications. Moderate coronary calcifications. Degenerative changes in the spine and bilateral shoulder joints. Lower anterior cervical spine fixation plate again noted. Stable subcentimeter calcifications and/or clips in both breasts. Stable 12 mm nodular density in the left breast (image 248), an additional nodular densities in the right breast. PFT: 02/12/2025 I have personally reviewed and my interpretation is as follows: normal spirometry, normal lung volumes, normal DLCO Anne Marie 12 (N) Assessment/Plan: Assessment: - Chronic cough - productive, present for about 5 years, suspect etiology is multifactorial with contribution from reflux disease and chronic allergies, PND. PFTs today 02/12 reassuring from a pulmonary standpoint at this time. Will consider ENT referral pending Allergy evaluation. - Post- nasal drip - daily, worse in the Spring - GERD - follows with GI at [facility], taking omeprazole 40 mg BID, uncontrolled with persistent symptomsmultiples times a week - Former tobacco use, current inhaled THC use - Lung nodules - stable, multiple, previously followed with [facility], stable for 2+ years, no longer qualifies for LDCT d/t tobacco cessation more than 15 years ago. Plan: - Will refer to Allergy for skin testing and management of seasonal allergies, PND. In the mean time will provide rx for Nasonex. Reviewed administration directions to aim spray out towards ipsilateral ear. - Encouraged discussing chronic cough symptoms with her established GI team and to continue her PPIuse as they continue to gain better control over her symptoms. - Encouraged ongoing tobacco cessation and encouraged alternative pain control regimens not to included inhaled THC - call with any questions or concerns The above plan was discussed with the patient and all questions were answered. We will see Ms. Simmons for follow-up in 6 months or sooner if needed, with [facility] closer to home as sheis dependent on her daughter for transportation. Alayna Leal PA-C Pulmonary Medicine [facility] [place] February 12, 2025 1:51 PM Cosigned by Ulises Sears MD at 02/12/2025 5:18 PM EDT Associated attestation - Ulises Sears MD - 02/12/2025 5:18 PM EDT ATTENDING NOTE: I have reviewed the history and physical obtained and documented by the resident/fellow/TOMASZ, and personally interviewed, examined and reviewed records/data/labs/radiographs. I personally participatedin the velez components and I agree with the history physical examination, data assessment, diagnosisand plan as outlined except where differences are stated below. I have discussed the case and management of the patient's care. Briefly, my assessment is summarized as follows: Assessment/Plan: - chronic cough - likely related to post nasal drip, possible allergies, poorly controlled GERD - post nasal drip - seems to be a big contributing factor, worse in them morning. Advised to trial nasonex, proper technique discussed. Did not tolerate Flonase in the past. Allergy referral placed as well for skin testing near her home in [place] - GERD - poorly controlled, recommend continued follow up with her GI team as it may be contributing to cough as well - lung nodules - quit more than 15 years ago, so [facility] dismissed her from practice as LDCT will not be covered, but nodules are small and stable at least 2 years, likely benign. - former smoker - current THC inhalation See resident/fellow/TOMASZ's note for further details. Follow up at [place], closer to home. Ulises Sears MD [facility] [place] - [facility] Pulmonary and Critical Care 02/12/2025 5:06 PM I spent a total of 55 minutes on the date of the service which included preparing to see the patient, [id number] patient care, completing clinical documentation, obtaining and/or reviewing separately obtained history, ordering medications, tests, or procedures, communicating with other HCPs (not separately reported), independently interpreting results (not separately reported), communicating results to the patient/family/caregiver, and care coordination (not separately reported). documented in this encounterOhiohealth [facility]06-16-2025 NoteHNO ID: [id number] Author: BETY RAE RRT Service: ? Author Type: Registered Resp Therapist Type: Procedures Filed: 02/12/2025 13:28 Note Text: RESPIRATORY THERAPY ORAL EXHALED NITRIC OXIDE SERVICE DATE: 02/12/2025 SERVICE TIME: 1:28 PM Oral Exhaled Nitric Oxide measurement: 12.0 (ppb) Normal: Adult <25 ppb, pediatric (<12 years) <20 ppb High Normal / Increased: Adult 25-50 ppb, pediatric (<12 years) 20-35 ppb Moderately raised exhaled Nitric Oxide may indicate underlying inflammation, but note that: Cold and influenza can raise exhaled Nitric Oxide and some patients have higher baseline exhaled Nitric Oxide levels than others. High: Adult >50 ppb, pediatric (<12 years) >35 ppb Indicative of ongoing eosinophilic inflammation. Symptomatic patient likely to respond to steroids. Possible causes (if already on steroids): Poor compliance, recent allergen exposure, steroid dose inadequate, and steroid resistance. Note that not all patients with high exhaled nitric oxide levels display symptoms. Oral Exhaled Nitric Oxide measurement (Previous Encounters) Test Date Oral Exhaled Nitric Oxide (ppb) 02/12/2025 12.0 NAME: Bety Rae RRT PATIENT NAME: Stefanie Simmons DATE: February 12, 2025 TIME: 1:28 [facility]06-16-2025 Procedure note* Bety Rae RRT - 02/12/2025 1:28 PM EDTAssociated Order(s): NITRIC OXIDE, EXHALED RESPIRATORY THERAPY ORAL EXHALED NITRIC OXIDE SERVICE DATE: 02/12/2025 SERVICE TIME: 1:28 PM Oral Exhaled Nitric Oxide measurement: 12.0 (ppb) Normal: Adult <25 ppb, pediatric (<12 years) <20 ppb High Normal / Increased: Adult 25-50 ppb, pediatric (<12 years) 20-35 ppb Moderately raised exhaled Nitric Oxide may indicate underlying inflammation, but note that: Cold and influenza can raise exhaled Nitric Oxide and some patients have higher baseline exhaled Nitric Oxide levels than others. High: Adult >50 ppb, pediatric (<12 years) >35 ppb Indicative of ongoing eosinophilic inflammation. Symptomatic patient likely to respond to steroids. Possible causes (if already on steroids): Poor compliance, recent allergen exposure, steroid dose inadequate, and steroid resistance. Note that not all patients with high exhaled nitric oxide levels display symptoms. Oral Exhaled Nitric Oxide measurement (Previous Encounters) Test Date Oral Exhaled Nitric Oxide (ppb) 02/12/2025 12.0 NAME: Bety Rae RRT PATIENT NAME: Stefanie Simmons DATE: February 12, 2025 TIME: 1:28 PM T [facility]06-16-2025 Procedure note* Bety Rae RRT - 02/12/2025 1:28 PM EDTAssociated Order(s): NITRIC OXIDE, EXHALED RESPIRATORY THERAPY ORAL EXHALED NITRIC OXIDE SERVICE DATE: 02/12/2025 SERVICE TIME: 1:28 PM Oral Exhaled Nitric Oxide measurement: 12.0 (ppb) Normal: Adult <25 ppb, pediatric (<12 years) <20 ppb High Normal / Increased: Adult 25-50 ppb, pediatric (<12 years) 20-35 ppb Moderately raised exhaled Nitric Oxide may indicate underlying inflammation, but note that: Cold and influenza can raise exhaled Nitric Oxide and some patients have higher baseline exhaled Nitric Oxide levels than others. High: Adult >50 ppb, pediatric (<12 years) >35 ppb Indicative of ongoing eosinophilic inflammation. Symptomatic patient likely to respond to steroids. Possible causes (if already on steroids): Poor compliance, recent allergen exposure, steroid dose inadequate, and steroid resistance. Note that not all patients with high exhaled nitric oxide levels display symptoms. Oral Exhaled Nitric Oxide measurement (Previous Encounters) Test Date Oral Exhaled Nitric Oxide (ppb) 02/12/2025 12.0 NAME: Bety Rae RRT PATIENT NAME: Stefanie Simmons DATE: February 12, 2025 TIME: 1:28 PM documented in this encounterOhiohealth [facility]04-21-2025 Instructions* Patient Instructions* Zachary Toney MD - 12/18/2024 5:51 PM EDT Shingrix Vaccine(1 of 2) Never done RSV Vaccine(1 - Risk 60-74 years 1-dose series) Never done Mammogram Screening due on 10/08/2024 documented in this encounterOhiohealth [facility]ady [facility]04-21-2025 NoteHNO ID: [id number] Author: ZACHARY TONEY MD Service: ? Author Type: Physician Type: Progress Notes Filed: 12/18/2024 18:05 Note Text: This note was created using Trustpilotriter. Subjective Stefanie Simmons is a 64 year old female. Restless legs, and depression were controlled. She needed medication refills. Her diabetes mellitus was managed by [facility] and well controlled. She did not tolerate using a CPAP. Sleep quality was good. She was seeing pulmonary here, and was now being worked up for chronic cough and ashtma. Review of Systems Constitutional: Negative for fatigue and fever. HENT: Negative for congestion. Respiratory: Positive for cough. Negative for shortness of breath and wheezing. Cardiovascular: Negative for chest pain, palpitations and leg swelling. Neurological: Negative for dizziness and headaches. ACTIVE PROBLEM LIST Essential Hypertension Other Hyperlipidemia Type 2 Diabetes Mellitus With Diabetic Neuropathy, With Long-Term Current Use of Insulin (Hcc) Gerd (Gastroesophageal Reflux Disease) Symptomatic Menopausal Or Female Climacteric States Multinodular Thyroid Depressive Disorder Bilateral Carotid Artery Stenosis Obesity, Class I, Bmi 30-34.9 Degeneration of Intervertebral Disc of Cervical Region Restless Legs Gait Abnormality DEBBIE (obstructive sleep apnea) mild; moderate when supine. Seasonal Allergies Osteoarthritis of Both Thumbs Vitamin D Deficiency Telangiectasia of Skin Meralgia Paresthetica of Left Side Gastroparesis Tubular Adenoma of Colon Chronic Cough Social History Tobacco Use Smoking status: Former Current packs/day: 0.00 Average packs/day: 1 pack/day for 34.0 years (34.0 ttl pk-yrs) Types: Cigarettes Start date: 11/30/1974 Quit date: 12/12/2008 Years since quittin.0 Smokeless tobacco: Never Vaping Use Vaping status: Never Used Substance Use Topics Alcohol use: Not Currently Alcohol/week: 3.0 standard drinks of alcohol Types: 3 Cans of Beer (12oz) per week Comment: Occasionally Drug use: Yes Frequency: 7.0 times per week Types: Marijuana Comment: PT Smokes 3x a day Current Outpatient Medications Medication Sig atorvastatin (LIPITOR) 40 mg tablet Take 1 tablet by mouth once daily. gabapentin (NEURONTIN) 300 mg capsule Take 1 capsule at around Noon, 1 capsule with dinner and 3 capsules at bedtime. lisinopril-hydroCHLOROthiazide (ZESTORETIC) 20-12.5 mg per tablet Take 2 tablets by mouth once daily. metFORMIN ER (GLUCOPHAGE XR) 500 mg 24 hr tablet Take 1 tablet by mouth daily with breakfast. omeprazole (PRILOSEC) 40 mg capsule Take 1 capsule by mouth two times a day. traZODone (DESYREL) 100 mg tablet Take 1 tablet by mouth daily at bedtime. CPAP/BIPAP/OTHER APAP 5-15 cmH2O [facility] (Patient not taking: Reported on 12/06/2024) dicyclomine (BENTYL) 10 mg capsule Take 10 mg by mouth three times a day. fexofenadine (MANJULA ALLERGY) 180 mg tablet Take 1 tablet by mouth once daily. sertraline (ZOLOFT) 100 mg tablet Take 1 tablet by mouth once daily. ergocalciferol 50,000 unit capsule (VITAMIN D2, DRISDOL) Take 1 capsule by mouth one time a week. Use as directed. metoclopramide HCl (REGLAN) 10 mg tablet Take 1 tablet by mouth every 6 hours as needed (nausea, vomiting). 30min before meals. LINZESS 145 mcg capsule Take 1 capsule by mouth every afternoon. (Patient not taking: Reported on 12/06/2024) NOVOLOG U-100 INSULIN ASPART 100 unit/mL For insulin pump. Per endocrinology. estradiol (ESTRACE) 0.01 % (0.1 mg/gram) vaginal cream ondansetron orally disintegrating (ZOFRAN ODT) 4 mg disintegrating tablet Take 1 tablet by mouth every 8 hours as needed for nausea/vomiting. No current facility-administered medications for this visit. Objective BP 102/62 Pulse 71 Wt 77.6 kg (171 lb 1.2 oz) SpO2 95% BMI 30.30 kg/m? Physical Exam Constitutional: General: She is not in acute distress. Cardiovascular: Rate and Rhythm: Normal rate and regular rhythm. Heart sounds: No murmur heard. No gallop. Pulmonary: Effort: No respiratory distress. Breath sounds: No wheezing, rhonchi or rales. Abdominal: Tenderness: There is no abdominal tenderness. Musculoskeletal: Right lower leg: No edema. Left lower leg: No edema. Neurological: Mental Status: She is alert. Feet:Shoes and socks removed, No deformities, ulcers, normal distal pulses, not sensitive to monofilament in both forefeet, and calluses in both big toe MTP joints. Assessment and Plan 1. Essential hypertension - ICD9: 401.9, ICD10: I10 (primary diagnosis) - Controlled - Continue current medications - Recommend regular aerobic exercise 2. Restless legs - ICD9: 333.94, ICD10: G25.81 - Controlled. Continue medication. - GABAPENTIN 300 MG CAPSULE 3. Depressive disorder - ICD9: 311, ICD10: F32.A - Controlled. Continue medication. - SERTRALINE 100 MG TABLET 4. Other hyperlipidemia - ICD9: 272.4, (more content not included)...[facility]04-21-2025 History of Present illness Narrative* Zachary Toney MD - 12/18/2024 5:39 PM EDT This note was created using Trustpilotriter. Subjective Stefanie Simmons is a 64 year old female. Restless legs, and depression were controlled. She needed medication refills. Her diabetes mellitus was managed by [facility] and well controlled. She did not tolerate using a CPAP. Sleep quality was good. She was seeing pulmonary here, and was now being worked up for chronic cough and ashtma. Review of Systems Constitutional: Negative for fatigue and fever. HENT: Negative for congestion. Respiratory: Positive for cough. Negative for shortness of breath and wheezing. Cardiovascular: Negative for chest pain, palpitations and leg swelling. Neurological: Negative for dizziness and headaches. ACTIVE PROBLEM LIST Essential Hypertension Other Hyperlipidemia Type 2 Diabetes Mellitus With Diabetic Neuropathy, With Long-Term Current Use of Insulin (Hcc) Gerd (Gastroesophageal Reflux Disease) Symptomatic Menopausal Or Female Climacteric States Multinodular Thyroid Depressive Disorder Bilateral Carotid Artery Stenosis Obesity, Class I, Bmi 30-34.9 Degeneration of Intervertebral Disc of Cervical Region Restless Legs Gait Abnormality DEBBIE (obstructive sleep apnea) mild; moderate when supine. Seasonal Allergies Osteoarthritis of Both Thumbs Vitamin D Deficiency Telangiectasia of Skin Meralgia Paresthetica of Left Side Gastroparesis Tubular Adenoma of Colon Chronic Cough Social History Tobacco Use Smoking status: Former Current packs/day: 0.00 Average packs/day: 1 pack/day for 34.0 years (34.0 ttl pk-yrs) Types: Cigarettes Start date: 11/30/1974 Quit date: 12/12/2008 Years since quittin.0 Smokeless tobacco: Never Vaping Use Vaping status: Never Used Substance Use Topics Alcohol use: Not Currently Alcohol/week: 3.0 standard drinks of alcohol Types: 3 Cans of Beer (12oz) per week Comment: Occasionally Drug use: Yes Frequency: 7.0 times per week Types: Marijuana Comment: PT Smokes 3x a day Current Outpatient Medications Medication Sig atorvastatin (LIPITOR) 40 mg tablet Take 1 tablet by mouth once daily. gabapentin (NEURONTIN) 300 mg capsule Take 1 capsule at around Noon, 1 capsule with dinner and 3 capsules at bedtime. lisinopril-hydroCHLOROthiazide (ZESTORETIC) 20-12.5 mg per tablet Take 2 tablets by mouth once daily. metFORMIN ER (GLUCOPHAGE XR) 500 mg 24 hr tablet Take 1 tablet by mouth daily with breakfast. omeprazole (PRILOSEC) 40 mg capsule Take 1 capsule by mouth two times a day. traZODone (DESYREL) 100 mg tablet Take 1 tablet by mouth daily at bedtime. CPAP/BIPAP/OTHER APAP 5-15 cmH2O [facility] (Patient not taking: Reported on 12/06/2024) dicyclomine (BENTYL) 10 mg capsule Take 10 mg by mouth three times a day. fexofenadine (MANJULA ALLERGY) 180 mg tablet Take 1 tablet by mouth once daily. sertraline (ZOLOFT) 100 mg tablet Take 1 tablet by mouth once daily. ergocalciferol 50,000 unit capsule (VITAMIN D2, DRISDOL) Take 1 capsule by mouth one time a week. Use as directed. metoclopramide HCl (REGLAN) 10 mg tablet Take 1 tablet by mouth every 6 hours as needed (nausea, vomiting). 30min before meals. LINZESS 145 mcg capsule Take 1 capsule by mouth every afternoon. (Patient not taking: Reported on 12/06/2024) NOVOLOG U-100 INSULIN ASPART 100 unit/mL For insulin pump. Per endocrinology. estradiol (ESTRACE) 0.01 % (0.1 mg/gram) vaginal cream ondansetron orally disintegrating (ZOFRAN ODT) 4 mg disintegrating tablet Take 1 tablet by mouth every 8 hours as needed for nausea/vomiting. No current facility-administered medications for this visit. Objective BP 102/62 Pulse 71 Wt 77.6 kg (171 lb 1.2 oz) SpO2 95% BMI 30.30 kg/m Physical Exam Constitutional: General: She is not in acute distress. Cardiovascular: Rate and Rhythm: Normal rate and regular rhythm. Heart sounds: No murmur heard. No gallop. Pulmonary: Effort: No respiratory distress. Breath sounds: No wheezing, rhonchi or rales. Abdominal: Tenderness: There is no abdominal tenderness. Musculoskeletal: Right lower leg: No edema. Left lower leg: No edema. Neurological: Mental Status: She is alert. Feet:Shoes and socks removed, No deformities, ulcers, normal distal pulses, not sensitive to monofilament in both forefeet, and calluses in both big toe MTP joints. Assessment and Plan 1. Essential hypertension - ICD9: 401.9, ICD10: I10 (primary diagnosis) - Controlled - Continue current medications - Recommend regular aerobic exercise 2. Restless legs - ICD9: 333.94, ICD10: G25.81 - Controlled. Continue medication. - GABAPENTIN 300 MG CAPSULE 3. Depressive disorder - ICD9: 311, ICD10: F32.A - Controlled. Continue medication. - SERTRALINE 100 MG TABLET 4. Other hyperlipidemia - ICD9: 272.4, ICD10: E78.49 Recheck. - LIPID PANEL, FASTING 5. Type 2 diabetes mellitus with diabetic neuropathy, with long-term current use of insulin (HCC) -ICD9: 250.60, 357.2, V58.67, ICD10: E11.40, Z79.4 - Controlled - Continue current medications - BASIC METABOLIC PANEL - HEMOGLOBIN A1C - ALBUMIN/CREATININE RATIO, URINE 6. Chronic cough - ICD9: 786.2, ICD10: R05.3 - Per pulmonary. 7. DEBBIE (obstructive sleep apnea) mild; moderate when supine. - ICD9: 327.23, ICD10: G47.33 - Intolerant to CPAP since 2022. Zachary Toney MD documented in this encounterOhio[facility]04-09-2025 NoteHNO ID: [id number] Author: MARISA BULL APRN.FORMING MACHINE TENDER Service: ? Author Type: Nurse Practitioner Type: Progress Notes Filed: 12/06/2024 15:31 Note Text: Dear Maine Marvin, Thank you for the referral of Stefanie Simmons for evaluation. Chronic Cough E-consult - Chart Reviewed. Chronic Cough: x 4 years History of prior Pulm evaluation: Follows with [facility]- does not look like she has seen Gen Pulm Prior PFTs: Normal Yovany 2021 Prior Chest imaging: yes; LDCT in 2021 with bronchial wall thickening, air trapping, possible smoking related ILD Smoking history: quit 15 years ago Previously tried treatments: nasal sprays, PPI, antihistamines, OCS Patient is local to [facility]. At this time patient would be more appropriate for general pulmonary for further evaluation of chronic cough, Etiologies include asthma vs chronic bronchitis vs infection vs smoking ILD. Chronic Cough Clinic remains an option in the future if further evaluation is needed. Please update PFTs prior to visit with general pulmonary team. I have placed orders for these. Marisa Bull APRN Pulmonary Medicine [facility]24[id number] History of Present illness Narrative* Marisa Bull APRN.FORMING MACHINE TENDER - 12/06/2024 3:25 PM EDT Dear Maine Marvin, Thank you for the referral of Stefanie Simmons for evaluation. Chronic Cough E-consult - Chart Reviewed. Chronic Cough: x 4 years History of prior Pulm evaluation: Follows with [facility]- does not look like she has seen Gen Pulm Prior PFTs: Normal Yovany 2021 Prior Chest imaging: yes; LDCT in 2021 with bronchial wall thickening, air trapping, possible smoking related ILD Smoking history: quit 15 years ago Previously tried treatments: nasal sprays, PPI, antihistamines, OCS Patient is local to [facility]. At this time patient would be more appropriate for general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 [id number] [facility]01-31-2025 Miscellaneous Notes* Telephone Encounter - Jackeline Waterman RN - 09/29/2024 10:44 AM EST Patient calls for severe left arm pain and weakness. Nurse triage completed.Triage recommends go toED now. Patient agreeable. Reason for Disposition [1] Age > 40 AND [2] no obvious cause AND [3] pain even when not moving the arm (Exception: Painis clearly made worse by moving arm or bending neck.) Answer Assessment - Initial Assessment Questions 1. ONSET: Today is the second day. 2. LOCATION: Left arm from shoulder down. 3. PAIN: - SEVERE (8-10): Excruciating pain, unable to do any normal activities, unable to hold a cup of water. 11/10 is what patient reported. 4. WORK OR EXERCISE: No recent work or exercise that involved this part of the body. 5. CAUSE:Patient doesn't know. 6. OTHER SYMPTOMS: Arm weakness. Patient reports the arm pain/weakness is so bad she had to call her daughter home from work because she is not able to hold the baby. No neck pain, rash, swelling, ornumbness. Protocols used: Arm [id number] documented in this encounterOhiohealth Grady Memorial Hospital01-29-2025 [facility] Medical Records Department [address] [place] [address] History Physical Exam 09/27/24 1058 MR#: [id number] Acct: [id number] Name: STEFANIE SIMMONS Rep #: [id number] : 1960 64 From: Felton Friend DO PCP: Dr. Zachary Toney MD Status:[facility] Location: [place] [address] HPI - General General Date of Admission: 09/27/24 Date of Service: 09/27/24 Chief Complaint: Abdominal pain HPI Narrative is a 63 F who presents for endoscopic evaluation of abdominal pain. Prior workup: ? CT abd/pel 05.08.21 adrenal adenoma *BGI established 05.22.21 with abdominal pain, N/V, early satiety and intermittent loose stools. 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 ? EGD 05.28.21 small sliding hiatal hernia; gastric antrum erosions; duodenitis, Mary gland hyperplasia. OV 06.10.21 with improvement of symptoms: loose stools have resolved, intermittent nausea without emesis, abdominal pain or bloating. ? GET 06.11.21 32.83 minutes (). OV 08.12.21 with ongoing improvement of symptoms. Upper abdominal discomfort has lessened. Insulin pump placed last Wednesday. [facility] ED 05.05.23 abdominal pain, N/V and some weight loss of 15-20lbs. Discharged with Phenergan and reglan and Zofran ? CT abd/pel IV only small bowel wall thickening, enterocolitis OV 05.18.23 she has had a return of nausea and emesis. BM have been normal with rare loose stools; continues with Linzess. Her insulin pump has been removed and she is no longer having her DMII managed (Dr. Lucie Suazo cdl service technician who has been working at and received approval for closed loop monitoring); Dr. Suazo updated regarding symptoms and possibility of islet transplantation appropriateness. Start doxycycline ? GET 05.24.23 25.44minutes () Contact 05.28.23 with results: continue workup with endocrinology to manage DMII and in-turn GI symptoms. OV 08.10.23 continues to have nausea and limited emesis with abdominal pain/discomfort. Hgb A1c 14.5. She now has her insulin pump reattached and reports her sugars have been within her prescribed blood sugar range. Urgent loose stools with urgency related incontinence has been an issue since start of Linzess 145mcg; prior to use of Linzess she did not have urgency or urgency incontinence. EGD Colonoscopy 11.04.23 Colon - The procedure was aborted due to the patient's neurologic instability (seizure). Diverticulosis in the recto-sigmoid colon and in the sigmoid colon. No specimens collected. EGD - Normal esophagus. Medium-sized hiatal hernia. Erythematous mucosa in the gastric body. Biopsied. Erythematous duodenopathy. Biopsied. [facility] ED 01.07.24 back muscle spasms OV 01.17.24 pt reports that the linzess has been effective and is having a daily bm as long as she does not run out. Pt reports worsened symptoms of GERD and acid reflux. Pt reports continuing omeprazole, but stopped Carafate because it was dissolving in her mouth before she could swallow it. OV 24- Patient states ongoing constipation. Has a BM every few days. Takes Linzess 72mcg. Wants to try increasing dose. Daily abdominal pain and bloating. Contiunes with Omeprazole for hea rtburn. Is mostly controlled. lubiprostone (Amitiza) 8 mcg PO BID 60 caps [facility] Insulin dependent diabetes mellitus Ambulates with cane History of renal disease GERD (gastroesophageal reflux disease) Obesity Presence of pessary Presence of insulin pump Gastroparesis Diabetes Wears glasses Wears dentures Depression Anxiety Marijuana use Thyroid disease Arthritis Fatty liver High cholesterol Restless legs Injury of head and neck Dietary restriction History of hiatal hernia Former smoker Leg cramps History of edema History of stress test Cardiology follow-up encounter Diarrhea Nausea vomiting Abdominal pain Diarrhea Nausea Acute right flank pain Acute hypokalemia Hyperlipidemia HTN (hypertension) Home Medications ???Medication ???Instructions ???Recorded ???Last Taken ???Type lisinopril 20 1 tab PO DAILY bp 09/22/19 11/03/23 History mg-hydrochlorothiazide 12.5 mg tablet sertraline 100 mg tablet 100 mg PO DAILY depression 09/22/19 11/03/23 History pen needle, diabetic 32 gauge x #150 ea 08/01/21 Unknown Rx (BD Ultra-Fine Sheri Pen Needle) omeprazole 40 mg capsule,delayed 40 mg PO BID gerd 12/09/21 11/03/23 History release trazodone 100 mg tablet 100 mg PO QHS insomnia 12/09/21 11/02/23 History (more content not included)...[facility]10-18-2024 History of Present illness Narrative* Zachary Toney MD - 06/16/2024 8:40 AM EDT This note was created using Shut Downter. Subjective Stefanie Simmons is a 63 year old female. She was doing well. She was having diabetic supply issues and we clarified this is for her insulin pump and should come from her cdl service technician. She still had postural dizziness with no recent syncope. She had non specific chest pain evaluated in the ER in April. Her hypertension, hyperlipidemia, RLS, and obstructive sleep apnea were controlled. Review of Systems Constitutional: Negative for fatigue and fever. HENT: Negative for congestion. Respiratory: Negative for cough and shortness of breath. Cardiovascular: Negative for chest pain, palpitations and leg swelling. Genitourinary: Negative. Neurological: Positive for dizziness and light-headedness. Negative for syncope and headaches. ACTIVE PROBLEM LIST Essential Hypertension Other Hyperlipidemia Type 2 Diabetes Mellitus With Diabetic Neuropathy, With Long-Term Current Use of Insulin (Hcc) Gerd (Gastroesophageal Reflux Disease) Symptomatic Menopausal Or Female Climacteric States Multinodular Thyroid Depressive Disorder Bilateral Carotid Artery Stenosis Obesity, Class I, Bmi 30-34.9 Degeneration of Intervertebral Disc of Cervical Region Restless Legs Gait Abnormality DEBBIE (obstructive sleep apnea) mild; moderate when supine. Seasonal Allergies Osteoarthritis of Both Thumbs Vitamin D Deficiency Telangiectasia of Skin Meralgia Paresthetica of Left Side Gastroparesis Tubular Adenoma of Colon Social History Tobacco Use Smoking status: Former Current packs/day: 0.00 Average packs/day: 1 pack/day for 34.0 years (34.0 ttl pk-yrs) Types: Cigarettes Start date: 11/30/1974 Quit date: 11/30/2008 Years since quittin.5 Smokeless tobacco: Never Vaping Use Vaping status: Never Used Substance Use Topics Alcohol use: Not Currently Alcohol/week: 3.0 standard drinks of alcohol Types: 3 Cans of Beer (12oz) per week Comment: Occasionally Drug use: Yes Frequency: 7.0 times per week Types: Marijuana Current Outpatient Medications Medication Sig atorvastatin (LIPITOR) 40 mg tablet Take 1 tablet by mouth once daily. gabapentin (NEURONTIN) 300 mg capsule Take 1 capsule at around Noon, 1 capsule with dinner and 3 capsules at bedtime. lisinopril-hydroCHLOROthiazide (ZESTORETIC) 20-12.5 mg per tablet Take 2 tablets by mouth once daily. metFORMIN ER (GLUCOPHAGE XR) 500 mg 24 hr tablet Take 1 tablet by mouth daily with breakfast. omeprazole (PRILOSEC) 40 mg capsule Take 1 capsule by mouth two times a day. traZODone (DESYREL) 100 mg tablet Take 1 tablet by mouth daily at bedtime. CPAP/BIPAP/OTHER APAP 5-15 cmH2O [facility] dicyclomine (BENTYL) 10 mg capsule Take 10 mg by mouth three times a day. fexofenadine (MANJULA ALLERGY) 180 mg tablet Take 1 tablet by mouth once daily. sertraline (ZOLOFT) 100 mg tablet Take 1 tablet by mouth once daily. ergocalciferol 50,000 unit capsule (VITAMIN D2, DRISDOL) Take 1 capsule by mouth one time a week. Use as directed. metoclopramide HCl (REGLAN) 10 mg tablet Take 1 tablet by mouth every 6 hours as needed (nausea, vomiting). 30min before meals. LINZESS 145 mcg capsule Take 1 capsule by mouth every afternoon. NOVOLOG U-100 INSULIN ASPART 100 unit/mL For insulin pump. Per endocrinology. estradiol (ESTRACE) 0.01 % (0.1 mg/gram) vaginal cream ondansetron orally disintegrating (ZOFRAN ODT) 4 mg disintegrating tablet Take 1 tablet by mouth every 8 hours as needed for nausea/vomiting. No current facility-administered medications for this visit. Objective BP 110/64 (BP Site: Right Arm, BP Position: Sitting, BP Cuff Size: Large Adult) Pulse 69 Resp 12 Ht 160 cm (5' 3) Wt 79.2 kg (174 lb 9.7 oz) SpO2 98% BMI 30.93 kg/m Physical Exam Constitutional: Appearance: Normal appearance. HENT: Head: Normocephalic. Eyes: Conjunctiva/sclera: Conjunctivae normal. Cardiovascular: Rate and Rhythm: Normal rate and regular rhythm. Heart sounds: No murmur heard. No gallop. Pulmonary: Breath sounds: Normal breath sounds. Musculoskeletal: Right lower leg: No edema. Left lower leg: No edema. Neurological: General: No focal deficit present. Mental Status: She is alert. Gait: Gait normal. Assessment and Plan 1. Medicare annual wellness visit, subsequent - ICD9: V70.0, ICD10: Z00.00 (primary diagnosis) - See wellness note. 2. Other hyperlipidemia - ICD9: 272.4, ICD10: E78.49 Controlled. Continue medication. - ATORVASTATIN 40 MG TABLET 3. Restless legs - ICD9: 333.94, ICD10: G25.81 Controlled. Continue medication. - GABAPENTIN 300 MG CAPSULE 4. Essential hypertension - ICD9: 401.9, ICD10: I10 - Controlled - Continue current medications - LISINOPRIL 20 MG-HYDROCHLOROTHIAZIDE 12.5 MG TABLET 5. Gastroesophageal reflux disease, unspecified whether esophagitis present - ICD9: 530.81, ICD10: K21.9 - She also sees GI. - OMEPRAZOLE 40 MG CAPSULE,DELAYED RELEASE 6. Depressive disorder - ICD9: 311, ICD10: F32.A Controlled. Continue current medications. - TRAZODONE 100 MG TABLET 7. Encounter for screening examination for other mental health and behavioral disorders - ICD9: V79.8, ICD10: Z13.39 - ANXIETY SCREENING 8. Type 2 diabetes mellitus with diabetic neuropathy, with long-term current use of insulin (HCC) -ICD9: 250.60, 357.2, V58.67, ICD10: E11.40, Z79.4 - Worsening control - Continue per [facility]. 9. Tubular adenoma of colon - ICD9: 211.3, ICD10: D12.6 - She will discuss screening with Dr. Brown. Previous procedure aborted due to seizure like activity. 10. Encounter for screening mammogram for malignant neoplasm of breast - ICD9: V76.12, ICD10: Z12.31 - SIMEON SCREENING W JUAN A 11. Need for influenza vaccination - ICD9: V04.81, ICD10: Z23 - INFLUENZA VACCINE, AGE 6MO-64YR, TRIVALENT (AFLURIA, FLULAVAL, FLUVIRIN, FLUZONE) 12. DEBBIE (obstructive sleep apnea) mild; moderate when supine. - ICD9: 327.23, ICD10: G47.33 - Controlled. Continue treatment. 13. Postural dizziness - ICD9: 780.4, ICD10: R42 - Do echo ordered in October. Consider referral for tilt table testing if echo within normal limits. Zachary Toney MD * Zachary Toney MD - 06/16/2024 8:23 AM EDT Images from the original note were not included. Stefanie Simmons is a 63 year old female here for a Medicare wellness visit. Medicare Health Risk Assessment General Health Good Exercise: Minutes/Day 0 min Exercise: Days/Week 0 days Alcohol: Daily Use Never Alcohol: Drinks/Day Patient does not drink Alcohol: 6 or more drinks Never Feel off balance Yes Concerns: Teeth/Dentures No Concerns: Sexual function No Troubled by feelings None of the above Frequency: Eating healthy diet Nearly every day ADLs requiring help None of the above Safety precautions in home/vehicle Yes Smoke, vape, chews tobacco No Difficulty hearing No Difficulty seeing No Current Providers Specialists: I have reviewed specialist-related care of the patient in the medical record. Current care team: Patient Care Team: Zachary Toney MD as PCP - General Outside specialists seen: Jorge Suazo MD (Endocrinology) Tiara Up MD (Urology-gynecology) Mahesh Brown MD (Gastroenterology) Devonte Smith MD (Neurology-Sleep medicine) [facility] Medical/Family history review Reviewed and updated problem list, medical/surgical/family/social history, medications, and allergies. Opioid use review Opioid Medications (last 90 days) No data to display Anxiety/Depression screening Recommendation: continuing current treatment plan Cognitive screening Mini Cog Score: 4 Cognitive screening reviewed and No further action needed (score 3-5). Functional Observation Was the patient's Timed Up & Go test unsteady or >= 12 seconds? No Advance Care Planning Patient did not wish or was not able to name a surrogate decision maker or provide an advance care plan Measurements BP 110/64 (BP Site: Right Arm, BP Position: Sitting, BP Cuff Size: Large Adult) Pulse 69 Resp 12 Ht 160 cm (5' 3) Wt 79.2 kg (174 lb 9.7 oz) SpO2 98% BMI 30.93 kg/m Vision Screening: Follows with optometry/ophthalmology Right: 20/30 Left: 20/ 30 Both: 20/30 Assessment/Plan Medicare annual wellness visit, subsequent (Z00.00) - Counseled on healthy diet and regular exercise - Fall avoidance information provided - Personalized prevention plan provided - Discussed need for and benefit of weight loss. BMI 30.93 kg/(m^2) - Vaccines: RSV VIS given to patient. Covid discontinued per patient preference. documented in this encounterOhiohealth Grady [facility] Hospital10-18-2024 Instructions* Patient Instructions* Zachary Toney MD - 06/16/2024 8:35 AM EDT Screening schedule The following prevention plan is recommended: RSV Vaccine(1 - Risk 60-74 years 1-dose series) Never done Colorectal Cancer Screening due on 12/06/2023 HbA1C due on 03/28/2024 Influenza Vaccine(1) due on 04/30/2024 Mammogram Screening due on 10/08/2024 WHAT YOU CAN DO TO PREVENT FALLS Many falls can be prevented. By making some changes, you can lower your chances of falling. Four things YOU can do to prevent falls for you* and your caregiver 1. Begin a regular exercise program Exercise is one of the most important ways to lower your chances of falling. It makes you stronger and helps you feel better. Exercises that improve balance and coordination (like [employer]) are the most helpful. Lack of exercise leads to weakness and increases your chances of falling. Ask your doctor or health care provider about the best type of exercise program for you. 2. Have your health care provider review your medicines Have your doctor or pharmacist review all the medicines you take, even [id number]-dhw-[id number] medicines. As you get older, the way medicines work in your body can change. Some medicines, or combinations of medicines, can make you sleepy or dizzy andcan cause you to fall. 3. Have your vision checked Have your eyes checked by an eye doctor at least once a year. You may be wearing the wrong glasses or have a condition like glaucoma or cataracts that limits your vision. Poor vision can increase your chances of falling. 4. Make your home safer About half of all falls happen at home. To make your home safer: Remove things you can trip over (like papers, books, clothes, and shoes) from stairs and places where you walk. Remove small throw rugs or use double-sided tape to keep the rugs from slipping. Keep items you use often in cabinets you can reach easily without using a step stool. Have grab bars put in next to your toilet and in the tub or shower. Use non-slip mats in the bathtub and on shower floors. Improve the lighting in your home. As you get older, you need brighter lights to see well. Hang light-weight curtains or shades to reduce glare. Have handrails and lights put in on all staircases. Wear shoes both inside and outside the house. Avoid going barefoot or wearing slippers. For more information, contact: Centers for Disease Control and Prevention www.cdc.gov/injury * This information may not apply if you have certain medical conditions. documented in this encounterOhiohealth Grady Memorial Hospital10-08-2024 Telephone encounter Note * Telephone Encounter - Marisa Casillas RN - 06/06/2024 3:21 PM EDT Patient calls and notified of below. Patient states that she thinks Dr. Suazo already ordered this because she got a message about it. Marisa Casillas RN [facility]10-08-2024 Miscellaneous Notes* Telephone Encounter - Marisa Casillas RN - 06/06/2024 3:21 PM EDT Patient calls and notified of below. Patient states that she thinks Dr. Suazo already ordered this because she got a message about it. Marisa Casillas RN * Telephone Encounter - Sherly Cummins LPN - 06/06/2024 1:52 PM EDT Left message for Patient to call & speak to nurse. Sherly Cummins LPN * Telephone Encounter - Priyanka Marie APRN.CNP - 06/06/2024 1:40 PM EDT If she is established with [facility] I would recommend orders come from them Priyanka Marie APRN.CNP * Telephone Encounter - Kasandra Ames LPN - 06/06/2024 11:10 AM EDT [employer] calling said patient is requesting a Dexcom G 7 rx. [facility] said to send rx to [facility]. Pending orders not sure how many times daily patient is testing sugars. Did find scanned document she is seeing [facility], notes said wanting her to test 4 times daily. Rx needs completed. Please advise documented in this encounterOhiohealth Grady [facility] Hospital10-08-2024 Telephone encounter Note * Telephone Encounter - Sherly Cummins LPN - 06/06/2024 1:52 PM EDT Left message for Patient to call & speak to nurse. Sherly Cummins LPN [facility]10-08-2024 Telephone encounter Note* Telephone Encounter - Priyanka Marie APRN.CNP - 06/06/2024 1:40 PM EDT If she is established with [facility] I would recommend orders come from them Priyanka Marie APRN.FORMING MACHINE TENDER [facility]10-08-2024 Telephone encounter Note* Telephone Encounter - Kasandra Ames LPN - 06/06/2024 11:10 AM EDT [employer] calling said patient is requesting a Dexcom G 7 rx. [facility] said to send rx to [facility]. Pending orders not sure how many times daily patient is testing sugars. Did find scanned document she is seeing [facility], notes said wanting her to test 4 times daily. Rx needs completed. Please advise [facility] History of Present illness Narrative* Ami Miller APRN.DREW - 04/28/2024 10:30 AM EDT Images from the original note were not included. [facility] Follow up/ Established patient visit Date of last visit : 08/16/2023 The following Impression/Plan was copied and pasted from the [facility] on [facility]16[facility]23: ASSESSMENT/PLAN: 1. RLS (restless legs syndrome) - ICD9: 333.94, ICD10: G25.81 (primary diagnosis) Stable as above. No changes in gabapentin dosing which pt is also taking during the day. Question if some of RLS symptoms during day actually represent DM neuropathy, but difficult to differentiate. Pt states urge to move if not on gabapentin. Tolerating without side effects. Renal function unremarkable. Gabapentin refills sent. Note Trazodone Rx'd by PCP. 2. Obstructive sleep apnea (adult) (pediatric) - ICD9: 327.23, ICD10: G47.33 As noted at prior visits, pt cannot tolerate PAP and declines other treatment options. Encouraged pt to continue to sleep in off-supine position. Pt understands limitations of positional thearpy, butagain, does not wish to seek other options at this time. 3. Class 1 obesity with body mass index (BMI) of 32.0 to 32.9 in adult, unspecified obesity type, unspecified whether serious comorbidity present - ICD9: 278.00, V85.32, ICD10: E66.9, Z68.32 Encouraged continued weight loss (noted above). Referral still in place for obesity med if pt chooses to do so. Devonte Smith MD Here for follow up for RLS, DEBBIE. RLS sxs are stable, she notes she tosses and turns at night. No daytime RLS sxs. Never has to get up and walk around in the evening like she used to. No evening RLS sxs. Thinks the tossing and turning is due to right hip pain. Also has neuropathy--can't feel toes and feet, sometimes gets pains especially right great toe. Gabapentin 300 mg #450 last filled 02/28/24. Takes 1 cap at noon, 1 cap at dinner and 3 caps at HS. Recent home visit from [employer] nurse, mentioned she could try nasal pillows for PAP therapy. Hx of CPAP intolerance. Takes trazodone 100 mg per PCP for insomnia SLEEP APNEA Sleep apnea type : DEBBIE, Most Recent Apnea-Hypopnea Index (AHI): 5.36 (4%), supine AHI 25, no REM sleep on 04/07/22 Treatment : side sleeping She returned her APAP to [facility] 2022 SLEEP HYGIENE QUESTIONS: Bedtime : 930-1030 pm Wake up Time : 9-930 am Time it takes to fall sleep : not long Number of times patient wakes up per night : 2 Reason (s) why patient wakes up during the night : urination Estimated total sleep time ( in a 24 hour period of time) : 8 Naps : No PATIENT-ENTERED QUESTIONNAIRE SLEEP SCORES 04/29/2017 05/03/2019 08/05/2021 PHQ-9 Score 19 18 19 04/29/2017 PROMIS Global Health - (T-Scores - the mean of general population = 50. Five points is a clinicallymeaningful difference.) Physical T-Score 39.8 Mental T-Score 33.8 SLEEP RELATED ROS Review of Systems Respiratory: Negative for difficulty breathing. Cardiovascular: Negative for palpitations. Gastrointestinal: Positive for heartburn. Genitourinary: Positive for nocturia. Neurological: Positive for memory loss (for example, forgot today's appt, forgets where she is driving). Negative for headaches. ALLERGIES Allergen Reactions Sulfa (Sulfonamide * Swelling, Itching Seasonal Allergies Intolerance Zocor [Simvastatin] Swelling CURRENT MEDICATIONS: dicyclomine (BENTYL) 10 mg capsule Take 10 mg by mouth three times a day. gabapentin (NEURONTIN) 300 mg capsule Take 1 capsule at around Noon, 1 capsule with dinner and 3 capsules at bedtime. omeprazole (PRILOSEC) 40 mg capsule Take 1 capsule by mouth two times a day. fexofenadine (MANJULA ALLERGY) 180 mg tablet Take 1 tablet by mouth once daily. sertraline (ZOLOFT) 100 mg tablet Take 1 tablet by mouth once daily. metFORMIN ER (GLUCOPHAGE XR) 500 mg 24 hr tablet Take 1 tablet by mouth daily with breakfast. lisinopril-hydroCHLOROthiazide (ZESTORETIC) 20-12.5 mg per tablet Take 2 tablets by mouth once daily. atorvastatin (LIPITOR) 40 mg tablet Take 1 tablet by mouth once daily. traZODone (DESYREL) 100 mg tablet Take 1 tablet by mouth daily at bedtime. ergocalciferol 50,000 unit capsule (VITAMIN D2, DRISDOL) Take 1 capsule by mouth one time a week. Use as directed. metoclopramide HCl (REGLAN) 10 mg tablet Take 1 tablet by mouth every 6 hours as needed (nausea, vomiting). 30min before meals. LINZESS 145 mcg capsule Take 1 capsule by mouth every afternoon. NOVOLOG U-100 INSULIN ASPART 100 unit/mL For insulin pump. Per endocrinology. estradiol (ESTRACE) 0.01 % (0.1 mg/gram) vaginal cream ondansetron orally disintegrating (ZOFRAN ODT) 4 mg disintegrating tablet Take 1 tablet by mouth every 8 hours as needed for nausea/vomiting. CPAP/BIPAP/OTHER APAP 5-15 cmH2O [employer] [facility] PHYSICAL EXAMINATION: Vital Signs: BP 110/74 (BP Site: Left Arm, BP Position: Sitting) Pulse 69 Wt 80.6 kg (177 lb 9.6 oz) SpO2 96% BMI 31.27 kg/m PHYSICAL EXAM: General appearance: pleasant, NAD Mental status: alert and oriented, able to provide own history but lost her train of though twice Constitutional: overweight Skin: No visible rashes on exposed skin IMPRESSION/PLAN: Debbie (obstructive sleep apnea) (primary encounter diagnosis) Rls (restless legs syndrome) Essential hypertension Stefanie Simmons is a 63 year old female with DEBBIE in the setting of HTN, RLS, neuropathy RLS is controlled. Continue gabapentin 300 mg, 1 cap at noon, 1 cap at dinner, 3 caps at HS for RLS(and neuropathy). After meeting with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 alcohol Types: 3 Cans of Beer (12oz) per week Comment: Occasionally Drug use: Yes Frequency: 7.0 times per week Types: Marijuana Current Outpatient Medications Medication Sig sertraline (ZOLOFT) 100 mg tablet Take 1 tablet by mouth once daily. metFORMIN ER (GLUCOPHAGE XR) 500 mg 24 hr tablet Take 1 tablet by mouth daily with breakfast. gabapentin (NEURONTIN) 300 mg capsule Take 1 capsule at around Noon, 1 capsule with dinner and 3 capsules at bedtime. lisinopril-hydroCHLOROthiazide (ZESTORETIC) 20-12.5 mg per tablet Take 2 tablets by mouth once daily. atorvastatin (LIPITOR) 40 mg tablet Take 1 tablet by mouth once daily. traZODone (DESYREL) 100 mg tablet Take 1 tablet by mouth daily at bedtime. ergocalciferol 50,000 unit capsule (VITAMIN D2, DRISDOL) Take 1 capsule by mouth one time a week. Use as directed. metoclopramide HCl (REGLAN) 10 mg tablet Take 1 tablet by mouth every 6 hours as needed (nausea, vomiting). 30min before meals. promethazine (PHENERGAN) 25 mg tablet Go-Pack Take 1 tablet by mouth every 6 hours as needed for nausea/vomiting. omeprazole (PRILOSEC) 40 mg capsule Take 1 capsule by mouth twice daily. LINZESS 145 mcg capsule Take 1 capsule by mouth every afternoon. fexofenadine (MANJULA ALLERGY) 180 mg tablet Take 1 tablet by mouth once daily. NOVOLOG U-100 INSULIN ASPART 100 unit/mL For insulin pump. Per endocrinology. estradiol (ESTRACE) 0.01 % (0.1 mg/gram) vaginal cream ondansetron orally disintegrating (ZOFRAN ODT) 4 mg disintegrating tablet Take 1 tablet by mouth every 8 hours as needed for nausea/vomiting. No current facility-administered medications for this visit. Objective BP 126/68 (BP Site: Right Arm, BP Position: Sitting, BP Cuff Size: Large Adult) Pulse 80 Resp 16 Wt 80.7 kg (178 lb) BMI 31.34 kg/m Physical Exam Constitutional: General: She is not in acute distress. HENT: Mouth/Throat: Mouth: Mucous membranes are moist. Tongue: No lesions. Eyes: Extraocular Movements: Extraocular movements intact. Conjunctiva/sclera: Conjunctivae normal. Pupils: Pupils are equal, round, and reactive to light. Cardiovascular: Rate and Rhythm: Normal rate and regular rhythm. Heart sounds: No murmur heard. No gallop. Pulmonary: Effort: No respiratory distress. Breath sounds: No wheezing or rales. Abdominal: General: There is no distension. Palpations: Abdomen is soft. Tenderness: There is no abdominal tenderness. Musculoskeletal: Cervical back: Neck supple. Right lower leg: No edema. Left lower leg: No edema. Skin: Findings: No bruising. Neurological: Mental Status: She is alert and oriented to person, place, and time. Cranial Nerves: Cranial nerves 2-12 are intact. Sensory: Sensation is intact. Motor: Motor function is intact. No weakness, tremor, abnormal muscle tone or pronator drift. Coordination: Coordination is intact. Romberg sign negative. Trtwuc-Frhq-Pdczrt Test normal. Gait: Gait is intact. Deep Tendon Reflexes: Babinski sign absent on the right side. Babinski sign absent on the left side. Reflex Scores: Tricep reflexes are 1+ on the right side and 1+ on the left side. Bicep reflexes are 1+ on the right side and 1+ on the left side. Patellar reflexes are 0 on the right side and 0 on the left side. Achilles reflexes are 0 on the right side and 0 on the left side. Assessment and Plan 1. Seizure-like activity (HCC) - ICD9: 780.39, ICD10: R56.9 - ER for any recurrence of symptoms. Medication not clearly indicated at this time. Do not drive until reevaluated. - CONSULT TO NEUROLOGY - CT BRAIN WO IVCON - EEG COMPLETE STD PHYS/QHP&GT;36 HR&LT;60 HR W/O VIDEO - CBC - COMP METABOLIC PANEL - LACTIC ACID/LACTATE - MAGNESIUM BLD Zachary Toney MD documented in this encounterOhio[facility]03-07-2024 Procedure [facility]03-07-2024 Procedure [facility]03-07-2024 Procedure [facility]03-07-2024 Procedure [facility]02-12-2024 Miscellaneous Notes* Letter - Coordinator, Mammography - 10/11/2023 8:41 AM EST October 11, 2023 PID: [id number] Stefanie Simmons [address] [place] [address] Dear Ms. Simmons, We are pleased to inform you that the results of your recent breast imaging exam on 10/08/2023 are normal. Your mammogram demonstrates that you have dense breast tissue, which could hide abnormalities. Dense breast tissue, in and of itself, is a relatively common condition. Therefore, this information is not provided to cause undue concern; rather, it is to raise your awareness and promote discussion with your health care provider regarding the presence of dense breast tissue in addition to other riskfactors. Early detection of cancer is very important. We also understand recommendations regarding breast cancer screening are controversial. Please discuss with your primary care provider which strategy is best for you and whether a mammogram is right for you. Your imaging studies and report will be kept [facility] as part of your permanent medical record and are available for your continuing care. Thank you for allowing us to help in meeting your health care needs. Sincerely, Dr. Tijerina Interpreting Radiologist [facility] (Normal over 40) documented in this encounterOhiohealth [facility]ady [facility]01-26-2024 Miscellaneous Notes* Telephone Encounter - Namrata Toscano Ma - 09/24/2023 12:52 PM EST Pharmacy sent a Kolorific message requesting the following refill. Requested Prescriptions Pending Prescriptions Disp Refills metFORMIN ER (GLUCOPHAGE XR) 500 mg 24 hr tablet 90 tablet 0 Sig: Take 1 tablet by mouth daily with breakfast. Next Appointment: SD 11/09/23 Patient Phone numbers: [phone] (home) Request is for script(s) to be escript to pharmacy. Namrata Toscano Ma documented in this encounterOhiohealth [facility]10-31-2023 Miscellaneous Notes* Telephone Encounter - Fany Newberry - 06/29/2023 9:22 AM EDT Patient reviewed for Population Health Medication Adherence Pended the following prescription(s) for review. Requested Prescriptions Pending Prescriptions Disp Refills lisinopril-hydroCHLOROthiazide (ZESTORETIC) 20-12.5 mg per tablet 180 tablet 3 Sig: Take 2 tablets by mouth once daily. atorvastatin (LIPITOR) 40 mg tablet 90 tablet 3 Sig: Take 1 tablet by mouth once daily. Future Appointments Date Time Provider Department Center 08/16/2023 10:20 AM Devonte Smith Jr., MD [facility] 09/27/2023 1:00 PM Zachary Toney MD [facility] Please review and refill if appropriate. Thank you. Fany Newberry June 29, 2023 9:22 AM documented in this encounterOhiohealth [facility]10-31-2023 History of Present illness Narrative* Fany Newberry - 06/29/2023 9:16 AM EDT Stefanie Simmons is identified through a medication adherence outreach initiative based on pharmacy claims data from [employer] (insurer) for CHRIS medication(s) and Statin medication(s). Patient is reviewed 06/29/23 due to medication adherence concerns with the following medications (name, strength, sig): Atorvastatin 40mg every day, Lisinopril/HCTZ 20/12.5mg every day . Per data/report, last fill date and days supply: Atorvastatin due 06/14/23, Lisinop/HCTZ due 06/13/23 Per reconcile dispense, last fill date and days supply: Atorvastatin filled 03/16/23 fo r90 days, Lisinopril/HCTZ filled 03/15/23 for 90 days Any need for new prescription (I.e. 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 By making some changes, you can lower your chances of falling. Four things YOU can do to prevent falls for you* and your caregiver 1. Begin a regular exercise program Exercise is one of the most important ways to lower your chances of falling. It makes you stronger and helps you feel better. Exercises that improve balance and coordination (like [employer]) are the most helpful. Lack of exercise leads to weakness and increases your chances of falling. Ask your doctor or health care provider about the best type of exercise program for you. 2. Have your health care provider review your medicines Have your doctor or pharmacist review all the medicines you take, even qfmy-yqp-iobnjss medicines. As you get older, the way medicines work in your body can change. Some medicines, or combinations of medicines, can make you sleepy or dizzy andcan cause you to fall. 3. Have your vision checked Have your eyes checked by an eye doctor at least once a year. You may be wearing the wrong glasses or have a condition like glaucoma or cataracts that limits your vision. Poor vision can increase your chances of falling. 4. Make your home safer About half of all falls happen at home. To make your home safer: Remove things you can trip over (like papers, books, clothes, and shoes) from stairs and places where you walk. Remove small throw rugs or use double-sided tape to keep the rugs from slipping. Keep items you use often in cabinets you can reach easily without using a step stool. Have grab bars put in next to your toilet and in the tub or shower. Use non-slip mats in the bathtub and on shower floors. Improve the lighting in your home. As you get older, you need brighter lights to see well. Hang light-weight curtains or shades to reduce glare. Have handrails and lights put in on all staircases. Wear shoes both inside and outside the house. Avoid going barefoot or wearing slippers. For more information, contact: Centers for Disease Control and Prevention www.cdc.gov/injury * This information may not apply if you have certain medical conditions. documented in this encounterOhiohealth Grady [facility]10-18-2023 History of Present illness Narrative* Priyanka Peoples APRN.CNP - 06/16/2023 5:04 PM EDT Stefanie Simmons is a 62 year old female here for a Medicare wellness visit. Medicare Health Risk Assessment General Health Very Good Exercise: Minutes/Day Yes Exercise: Days/Week Walks a few days a week Alcohol: Daily Use No Alcohol: Drinks/Day No Alcohol: 6 or more drinks No Feel off balance Yes, almost every day (chronic) Concerns: Teeth/Dentures No Concerns: Sexual function No Troubled by feelings No Frequency: Eating healthy diet Yes ADLs requiring help No Safety precautions in home/vehicle Yes Smoke, vape, chews tobacco No Difficulty hearing No Difficulty seeing No Current Providers Specialists: I have reviewed specialist-related care of the patient in the medical record. Current care team: Patient Care Team: Zachary Toney MD as PCP - General Outside specialists seen: Tool Distributor- Dr. Jorge Suazo Uro-gynecology- Dr. Up Medical/Family history review Reviewed and updated problem list, medical/surgical/family/social history, medications, and allergies. Opioid use review Opioid Medications (last 90 days) Some values may be hidden. Unless noted otherwise, only the newest values recorded on each date aredisplayed. Opioid Medications No data to display. Depression screening Depression Screening PHQ-2 Score PHQ-9 Score JASPER-2 Total Score JASPER-7 Total Score 08/05/2021 6 19 6 17 Depression screening tool completed and reviewed. Based on score and interview, patient is already diagnosed with depression. Screening tool discussed with patient, and I recommended continuing current plan of care. Time spent in depression screening and assessment: < 5 minutes. Cognitive screening Mini Cog Score: 5 Functional Observation Was the patient's timed Up & Go test unsteady or ? 12 seconds? No Advance Care Planning Patient did not wish or was not able to name a surrogate decision maker or provide an advance care plan Measurements BP 122/78 Pulse 51 Resp 16 Ht 5' 3.189 (1.61m) Wt 170 lb (77.1kg) SpO2 99% BMI 29.93 kg/(m^2). Additional screenings: No results found. Assessment/Plan Medicare annual wellness visit, subsequent (Z00.00) - Counseled on healthy diet and regular exercise - Fall avoidance information provided - 10-year prevention plan provided Additional Concerns The following concerns were also discussed with the patient: Patient reports syncopal episode last Wednesday. She was sitting on the toilet after a BM and blackedout. When she came to she was on the floor wedged between the toilet and bathtub. Unsure how long she was out for but estimates it at around 5 minutes or less. She felt lightheaded and had tunnel vision right before passing out. When she regained consciousness she felt shaky and sweaty. She denieschest pain, palpitations, SOB, biting her tongue, incontinence, confusion or disorientation. She did strike her right side and head when she passed out. Has mild discomfort and headache but no serious injury. She did not seek medical attention. She figured this was due to hypoglycemia since she had just started using insulin pump again but did not have the means to check her blood sugar. [place] better after drinking a coke. No further episodes since then. Review of Systems Constitutional: Negative for appetite change, chills, fatigue, fever and unexpected weight change. Respiratory: Negative for cough, chest tightness, shortness of breath and wheezing. Cardiovascular: Negative for chest pain, palpitations and leg swelling. Gastrointestinal: Negative for diarrhea, nausea and vomiting. Neurological: Negative for dizziness, tremors, facial asymmetry, speech difficulty, weakness, light-headedness, numbness and headaches. BP 122/78 Pulse (!) 51 Resp 16 Ht 160.5 cm (5' 3.19) Wt 77.1 kg (170 lb) SpO2 99% BMI 29.93 kg/m Physical Exam Vitals reviewed. Constitutional: General: She is not in acute distress. Appearance: Normal appearance. She is not ill-appearing. Cardiovascular: Rate and Rhythm: Normal rate and regular rhythm. Pulses: Normal pulses. Heart sounds: Normal heart sounds, S1 normal and S2 normal. No murmur heard. Pulmonary: Effort: Pulmonary effort is normal. Breath sounds: Normal breath sounds and air entry. No wheezing, rhonchi or rales. Musculoskeletal: Right lower leg: No edema. Left lower leg: No edema. Skin: General: Skin is warm and dry. Neurological: General: No focal deficit present. Mental Status: She is alert. Cranial Nerves: Cranial nerves 2-12 are intact. Sensory: Sensation is intact. Coordination: Coordination is intact. Romberg sign negative. Tfhann-Gydo-Fnxzmw Test normal. Rapid alternating movements normal. Gait: Gait is intact. Deep Tendon Reflexes: Reflexes are normal and symmetric. Psychiatric: Mood and Affect: Mood normal. Behavior: Behavior normal. ASSESSMENT/PLAN: 1. Medicare annual wellness visit, subsequent - ICD9: V70.0, ICD10: Z00.00 (primary diagnosis) See Medicare Wellness Plan 2. Syncope, unspecified syncope type - ICD9: 780.2, ICD10: R55 Suspect vasovagal vs hypoglycemia. No alarm symptoms or exam findings. No symptoms concerning for cardiac cause, seizure or stroke - ECG COMPLETE normal sinus rhythm with complete right bundle branch block, no ischemia, no changesfrom previous one month ago - recommend ER or call 911 for any further syncopal episodes, patient agreeable Priyanka Peoples APRN.DREW documented in this encounterOhiohealth [facility]10-12-2023 Miscellaneous Notes* Telephone Encounter - Sherly Cummins LPN - 06/10/2023 3:10 PM EDT Spoke to Stefanie, she is needing refill of her insulin for insulin pump, Katarina sensors. Patient hasan appt 06/16/2023, Annual Medicare Wellness and has enough of medications that Dr. Toney prescribes until her appointment. Advised that she needs to contact [facility] for insulin supplies. Patient verbalized understanding and will call. Sherly Cummins LPN * Telephone Encounter - Maria Elena Jenkins - 06/10/2023 11:44 AM EDT Stefanie Simmons is calling Zachary Toney MD today with concern regarding request for medications. Patient asking for all of her 15 medications to be called into a mail order pharmacy. Patient was getting upset and was in tears. Asked patient what her medications were and she said someone already called about medications to be requested. No note in chart indicating this. Please return call to patient because she was upset and hung up on me. Patient has been identified by name and birthdate. Duration of symptoms: N/A Person calling: self Call patient at: on cell [phone] (home) [phone] (cell) Was an appointment scheduled: No Closing statement: Results or non-symptom based questions: Thank you for calling [facility], your call will be returned within the next business day. Maria Elena Jenkins documented in this encounterOhiohealth Grady [facility]09-27-2023 Miscellaneous Notes* Telephone Encounter - Fabiola Harp - 05/26/2023 11:21 AM EDT Patient has been identified by name and date of : Yes Last office visit in this department: 06/22/2022 RX INSTRUCTIONS: Patient aware RX will be sent to pharmacy. No need to notify patient. Patient phones requesting refills as follows: Requested Prescriptions Pending Prescriptions Disp Refills traZODone (DESYREL) 100 mg tablet 90 tablet 3 Sig: Take 1 tablet by mouth daily at bedtime. She would like memloxcam to also be refilled. I just do not see it in her chart. She said it has been a while since taking it. Please review and advise. Fabiola Harp documented in this encounterOhiohealth Grady [facility]09-15-2023 Instructions* Patient Instructions* Joanna Srivastava MD - 05/14/2023 1:57 PM EDT TRYING TO LOSE WEIGHT? Your Body mass index is 30.29 kg/m . (Target BMI: 19-25) A person with a BMI between 25 and 29.9 is considered overweight A person with a BMI of 30 or greater is considered to be obese SETTING A WEIGHT LOSS GOAL: Last 5 Encounter Wt Readings: Date: Wt: 05/14/2023 77.6 kg (171 lb) 05/08/2023 77.6 kg (171 lb) 05/05/2023 77 kg (169 lb 12.8 oz) 02/24/2023 83.5 kg (184 lb) 02/01/2023 84 kg (185 lb 3.2 oz) Lose 10% of body weight over six months, about 1-2 lbs per week LIFESTYLE CHANGES -- The goals of lifestyle changes are to help you change your eating habits, become more active, and be more aware of how much you eat and exercise, helping you to make healthier choices. This can be broken down into three steps: 1. Triggers to eat -- Determining what triggers you to eat involves figuring out what foods you eatand where and when you eat. To figure out what triggers you to eat, keep a record for a few days ofeverything you eat, the places where you eat, how often you eat, and the emotions you were feeling when you ate. For some people, the trigger is related to a certain time of day or night. For others, the trigger is related to a certain place, like sitting at a desk working. 2. Eating -- You can change your eating habits by breaking the chain of events between the trigger for eating and eating itself. There are many ways to do this. For instance, you can: Limit where you eat to a few places (eg, dining room) Restrict the number of utensils (eg, only a fork) used for eating Drink a sip of water between each bite Chew your food a certain number of times Get up and stop eating every few minutes 3. What happens after you eat -- Rewarding yourself for good eating behaviors can help you to develop better habits. This is not a reward for weight loss; instead, it is a reward for changing unhealthy behaviors. Do not use food as a reward. Some people find money, clothing, or personal care (eg, a hair cut, manicure, or massage) to be effective rewards. Treat yourself immediately after making better eating choices to reinforce the value of the good behavior. You need to have clear behavior goals, and you must have a time frame for reaching your goals. Reward small changes along the way to your final goal. Other factors that contribute to successful weight loss -- Establish a fany system -- Having a friend or family member available to provide support and reinforce good behavior is very helpful. The support person needs to understand your goals. Learn to be strong -- Learning to be strong when tempted by food is an important part of losing weight. As an example, you will need to learn how to say no and continue to say no when urged to eat at parties and social gatherings. Develop strategies for events before you go, such as eating beforeyou go or taking low-calorie snacks and drinks with you. Develop a support system -- Having a support system is helpful when losing weight. This is why manycommercial groups are successful. Family support is also essential; if your family does not supportyour efforts to lose weight, this can slow your progress or even keep you from losing weight. Positive thinking -- People often have conversations with themselves in their head; these conversations can be positive or negative. If you eat a piece of cake that was not planned, you may respond by thinking, Oh, you stupid idiot, you've blown your diet! and as a result, you may eat more cake. A positive thought for the same event could be, Well, I ate cake when it was not on my plan. Now I should do something to get back on track. A positive approach is much more likely to be successful than a negative one. Reduce stress -- Although stress is a part of everyday life, it can trigger uncontrolled eating in some people. It is important to find a way to get through these difficult times without eating or byeating low-calorie food, like raw vegetables. It may be helpful to imagine a relaxing place that allows you to temporarily escape from stress. With deep breaths and closed eyes, you can imagine this relaxing place for a few minutes. Self-help programs -- Self-help programs like Weight Watchers , Overeaters Anonymous , and Take OffPounds Sensibly (TOPS) work for some people. As with all weight loss programs, you are most likely to be successful with these plans if you make long-term changes in how you eat. CHOOSING A DIET -- A calorie is a unit of energy found in food. Your body needs calories to function. The goal of any diet is to burn up more calories than you eat. How quickly you lose weight depends upon several factors, such as your age, gender, and starting weight. Older people have a slower metabolism than young people, so they lose weight more slowly. Men lose more weight than women of similar height and weight when dieting because they use more energy. People who are extremely overweight lose weight more quickly than those who are only mildly overweight. How many calories do I need? -- You can estimate the number of calories you need per day based uponyour current (or target) weight, gender, and activity level for women and for men. In general, it is best to choose foods that contain enough protein, carbohydrates, essential fatty acids, and vitamins. Try not to drink alcohol or drinks with added sugar, and most sweets (candy, cakes, cookies), sincethey rarely contain important nutrients. Portion-controlled diets -- One simple way to diet is to buy packaged foods, like frozen low-calorie meals or meal-replacement canned drinks. A typical meal plan for 1000 to 1500 calories per day mayinclude: A meal-replacement drink or breakfast bar for breakfast A meal-replacement drink or a frozen low-calorie (250 to 350 calories) meal for lunch A frozen low-calorie meal or other prepackaged, calorie-controlled meal, along with extra vegetables for dinner Low-fat diet -- To reduce the amount of fat in your diet, you can: Eat low-fat foods. Low-fat foods are those that contain less than 30 percent of calories from fat. Fat is listed on the food facts label Count fat grams. For a 1500 calorie diet, this would mean about 45 g or fewer of fat per day. Low-carbohydrate diet -- Low- and echi-fnw-nyptkuikimqo diets (eg, Atkins diet, [place] diet) have become popular ways to lose weight quickly. With a pdhx-uan-qakrtkzspvcf diet, you eat between 0 and 60 grams of carbohydrates per day (a standard diet contains 200 to 300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 week is best to maintainweight loss, so that would be the overall end goal. -- One option we discussed is to REPLACE one of your meals with a liquid meal or frozen meal. This is easy to start and may help with your weight. 1. Liquid meal replacement (Boost, Ensure) 2. Frozen meal (Healthy Choice, Lean Cuisine - sodium under 650mg, can always add veggies to the meal) 3. Powdered protein (Premier Protein) or meal replacement (I like a plant based meal replacement called OyaGen Nutrition - can mix w froz berries and almond milk) This note was partially generated using Shut Down voice recognition system, and there may be some incorrect words, spellings, and punctuation that were not noted in checking the note before saving documented in this encounterOhiohealth [facility]09-09-[facility]23 History of Present illness Narrative* Zachary Toney MD - 05/08/2023 8:45 AM EDT This note was created using Trustpilotriter. Subjective Patient presents with: Recheck: ER follow abdominal pain, burning in stomach Immunizations: Flu vaccination Stefanie Simmons is a 62 year old female. She had been seeing Dr. Brown for abdominal pain, nausea, vomiting, GERD, gastritis, gastroparesis, constipation. She had a history of functional diarrhea and was treated for bacterial overgrowth with doxycycline for 2 months (completed). She was also on Linzess for constipation or IBS. 2 or more weeks ago, epigastric burning like hot coals restarted, with dry heaves, nausea, vomiting of acidic mucus or foam. Pain was worse with any oral intake. Appetite and weight were down. She was in the ER for this 05/05/23 where labs were benign, and CT A&P consistent with nonspecific enterocolitis. She was prescribed phenergan, reglan, and Zofran. She had an appointment with her GI DrEdna Brown in 2 weeks. Compounding was uncontrolled diabetes mellitus. She stopped using her insulin pump 2 months ago, because her strips for her Accucheck meter increased in cost significantly. Her cdl service technician was aware of this but she had not heard any remedy. She was not on a CGM. Review of Systems Constitutional: Positive for appetite change and unexpected weight change. Negative for fever. HENT: Negative for congestion. Eyes: Negative. Respiratory: Negative for shortness of breath. Cardiovascular: Positive for palpitations. Negative for chest pain. Gastrointestinal: Negative for blood in stool, constipation and diarrhea. Genitourinary: Negative for difficulty urinating. ACTIVE PROBLEM LIST Essential Hypertension Other Hyperlipidemia Type 2 Diabetes Mellitus With Diabetic Neuropathy, With Long-Term Current Use of Insulin (Hcc) Gerd (Gastroesophageal Reflux Disease) Symptomatic Menopausal Or Female Climacteric States Multinodular Thyroid Depressive Disorder Bilateral Carotid Artery Stenosis Obesity, Class I, Bmi 30-34.9 Degeneration of Intervertebral Disc of Cervical Region Restless Legs Gait Abnormality DEBBIE (obstructive sleep apnea) mild; moderate when supine. Seasonal Allergies Osteoarthritis of Both Thumbs Vitamin D Deficiency Telangiectasia of Skin Meralgia Paresthetica of Left Side Social History Tobacco Use Smoking status: Former Packs/day: 1.00 Years: 34.00 Additional pack years: 0.00 Total pack years: 34.00 Types: Cigarettes Quit date: 11/30/2008 Years since quittin.4 Smokeless tobacco: Never Vaping Use Vaping Use: Never used Substance Use Topics Alcohol use: Yes Alcohol/week: 7.5 standard drinks of alcohol Types: 3 Cans of Beer (12oz) per week Comment: Occasionally Drug use: Yes Frequency: 7.0 times per week Types: Marijuana Current Outpatient Medications Medication Sig meloxicam (MOBIC) 15 mg tablet Take 1 tablet by mouth once daily as needed for pain. With food. LINZESS 145 mcg capsule Take 1 capsule by mouth every afternoon. fexofenadine (MANJULA ALLERGY) 180 mg tablet Take 1 tablet by mouth once daily. gabapentin (NEURONTIN) 300 mg capsule Take 1 capsule at around Noon, 1 capsule with dinner and 3 capsules at bedtime. omeprazole (PRILOSEC) 40 mg capsule Take 1 capsule by mouth once daily. atorvastatin (LIPITOR) 40 mg tablet Take 1 tablet by mouth once daily. sertraline (ZOLOFT) 100 mg tablet Take 1 tablet by mouth once daily. lisinopril-hydroCHLOROthiazide (PRINZIDE,ZESTORETIC) 20-12.5 mg per tablet Take 2 tablets by mouth once daily. traZODone (DESYREL) 100 mg tablet Take 1 tablet by mouth daily at bedtime. NOVOLOG U-100 INSULIN ASPART 100 unit/mL For insulin pump. Per endocrinology. estradiol (ESTRACE) 0.01 % (0.1 mg/gram) vaginal cream ondansetron orally disintegrating (ZOFRAN ODT) 4 mg disintegrating tablet Take 1 tablet by mouth every 8 hours as needed for nausea/vomiting. No current facility-administered medications for this visit. Objective BP 162/92 Pulse 75 Temp 36.3 C (97.4 F) (Temporal) Resp 16 Wt 77.6 kg (171 lb) SpO2 97% BMI 30.29 kg/m Physical Exam Constitutional: General: She is not in acute distress. Appearance: She is not diaphoretic. Eyes: Conjunctiva/sclera: Conjunctivae normal. Cardiovascular: Rate and Rhythm: Normal rate and regular rhythm. Heart sounds: No murmur heard. No gallop. Pulmonary: Effort: No respiratory distress. Breath sounds: Normal breath sounds. No wheezing or rales. Abdominal: General: Bowel sounds are normal. There is no distension. Palpations: There is no mass. Tenderness: There is abdominal tenderness in the epigastric area. There is no guarding or rebound. Musculoskeletal: Right lower leg: No edema. Left lower leg: No edema. Neurological: Mental Status: She is alert. EKG RESULTS: normal sinus rhythm and RBBB no change. Assessment and Plan 1. Continuous epigastric pain - ICD9: 789.06, ICD10: R10.13 (primary diagnosis) Differential Diagnosis includes cardiac. - ECG COMPLETE 2. Nausea and vomiting, unspecified vomiting type - ICD9: 787.01, ICD10: R11.2 Historical medications. - METOCLOPRAMIDE 10 MG TABLET - PROMETHAZINE 25 MG TAB (PHENERGAN) GO PACK 3. Gastroesophageal reflux disease, unspecified whether esophagitis present - ICD9: 530.81, ICD10: K21.9 - OMEPRAZOLE 40 MG CAPSULE,DELAYED RELEASE. Increase to BID. - SUCRALFATE 1 GRAM TABLET. QID x 1 month. Discussed medication dosage, usage, goals of therapy, and side effects. - See GI as scheduled. 4. Type 2 diabetes mellitus with diabetic neuropathy, with long-term current use of insulin (HCC) -ICD9: 250.60, 357.2, V58.67, ICD10: E11.40, Z79.4 - Uncontrolled - Generic supplies. If she is able to obtain testing supplies, she can restart her insulin pump. She follows with Dr. Jorge Suazo at [place]. - BLOOD-GLUCOSE METER KIT - LANCETS - BLOOD GLUCOSE TEST STRIPS - CONSULT TO OPHTHALMOLOGY 5. Need for influenza vaccination - ICD9: V04.81, ICD10: Z23 - INFLUENZA VACCINE, AGE 6 MO - 64 YR, QUADRIVALENT (AFLURIA, FLULAVAL, FLUZONE) Zachary Toney MD documented in this encounterOhiohealth [facility]09-08-2023 Miscellaneous Notes* Telephone Encounter - Jorge Che Ma - 05/07/2023 2:16 PM EDT Spoke with patient - appointment scheduled. * Telephone Encounter - Zachary Toney MD - 05/07/2023 11:11 AM EDT Offer appointment tomorrow. * Telephone Encounter - Madeleine Mina RN - 05/06/2023 3:36 PM EDT Pt reports she she has an appointment with Dr Brown on 05/18/23. Pt denies vomiting today, but started having a coughing fit while on phone and hung up because she said she was going to be sick. She reports she still has the stomach pain it's a constant 4-5/10 burning pain. Pt denies anything making it better, states when she coughs it irritates it. She states when she went to the ER last night her BS was 398. Dr Suazo manages her DM, but she states she hasn't checked her BS in over a month. Shestates she can't get the sensors and transmitters that go with her insulin pump covered by her insurance, and they are telling her she would have to pay $164 for test strips. I asked if she had called Dr [place] office, and she said she is tired of calling there that she has an appointment coming up. * Telephone Encounter - Sherly Cummins LPN - 05/06/2023 2:51 PM EDT Triage Nurse to reach out to Patient. Did she schedule appt with Dr. Brown as advised. How is she doing today., Sherly Cummins LPN * Telephone Encounter - Kat Moura - 05/06/2023 12:24 PM EDT Patient called to inform her doctor she was seen at [facility] yesterday. documented in this encounterOhiohealth [facility]09-07-2023 Miscellaneous Notes* Telephone Encounter - Sherly Cummins LPN - 05/06/2023 2:57 PM EDT Patient has been identified by name and date of : Yes, Patient phones for refill(s): Requested Prescriptions Pending Prescriptions Disp Refills meloxicam (MOBIC) 15 mg tablet 30 tablet 2 Sig: Take 1 tablet by mouth once daily as needed for pain. With food. Date of last office visit in primary care: 02/24/2023 Medicare Wellness: 06/16/2023 Last 2 Encounter Wt Readings: Date: Wt: 05/05/2023 77 kg (169 lb 12.8 oz) 02/24/2023 83.5 kg (184 lb) Previous labs/tests for medication: Not applicable Please advise. Thank you. Sherly Cummins LPN * Telephone Encounter - Kat Moura - 05/06/2023 12:21 PM EDT Patient has been identified by name and date of : Yes Requested Prescriptions Pending Prescriptions Disp Refills meloxicam (MOBIC) 15 mg tablet 30 tablet 2 Sig: Take 1 tablet by mouth once daily as needed for pain. With food. RX INSTRUCTIONS: Patient aware RX will be sent to pharmacy. No need to notify patient. Kat Moura documented in this encounterOhiohealth [facility]09-06-2023 Discharge summary Author Brett Morgan [facility] May 05, 2023 8:14pm Note Date/Time May 05, 2023 3:51pm [facility] Medical Records Department [address] [place] [address] Emergency Department Summary 05/05/23 MR#: [id number] Acct: [id number] Name: STEFANIE SIMMONS Rep #:[id number] : 1960 62 From: Brett Morgan MD PCP: Dr. Zachary Toney MD Status:R EG ER Location: ED HPI HPI - GI History of Present Illness Chief Complaint: Abd Pain Informant: patient Narrative Narrative: Presents with abdominal pain nausea vomiting and weight loss. Patient states she has a history of vomiting. She had problems with vomiting for [address] Brown dilated something in her stomach about 2 years ago. She generally has been doing well. She saw him a couple months ago. She states after seeing him she started with nausea and vomiting again. She does have Zofran which she occasionally takes but it does not she also was on doxycycline twice a day but has been off that for 2 or 3 weeks. She is lost 15 to 20 pounds in the last 2 months. She states she has been vomiting during the day. Sometimes she can get food and sometimes she cannot. No blood in the vomiting. She also has some epigastric discomfort. She also reports having hadpancreatitis in the past. She does not drink any alcohol though. She has not had cholecystectomy. [facility] Medical History Abdominal pain Acute hypokalemia Acute right flank pain Anxiety Arthritis Bacteriuria Cardiology follow-up encounter Depression Diabetes Diarrhea Diarrhea Dietary restriction Fatty liver Former smoker Gastric reflux Gastroparesis High cholesterol History of edema History of hiatal hernia History of stress test HTN (hypertension) Hyperlipidemia Injury of head and neck Leg cramps Marijuana use Nausea Nausea & vomiting Obesity Presence of insulin pump Presence of pessary Restless legs Thyroid disease Wears dentures Wears glasses Home Medications atorvastatin 20 mg tablet 40 mg PO QHS cholesterol 09/22/19 [History Last Taken 12/08/21] lisinopril 20 mg-hydrochlorothiazide 12.5 mg tablet 1 tab PO DAILY bp 09/22/19 [History Last Taken 12/08/21] sertraline 100 mg tablet 100 mg PO DAILY depression 09/22/19 [History Last Taken 12/08/21] loratadine 10 mg tablet 10 mg PO DAILY allergies 06/23/21 [History Last Taken 12/08/21] pen needle, diabetic 32 gauge x 5/32 (BD Ultra-Fine Sheri Pen Needle) #150 ea 08/01/21 [Rx Last Taken Unknown] omeprazole 40 mg capsule,delayed release 40 mg PO DAILY gerd 12/09/21 [History Last Taken 12/08/21] trazodone 100 mg tablet 100 mg PO QHS insomnia 12/09/21 [History Last Taken 12/08/21] insulin lispro 100 unit/mL subcutaneous solution (Humalog U-100 Insulin) 100 unit subcut DAILY #30 mL 10/14/22 [Rx Last Taken Unknown] meloxicam 15 mg tablet ea PO 11/30/22 [History Last Taken Unknown] gabapentin 300 mg capsule 90,000 mg PO .QID pain 12/17/22 [History Last Taken Unknown] doxycycline hyclate 100 mg capsule 100 mg PO BID #60 caps 03/10/23 [Rx Last Taken Unknown] linaclotide 145 mcg capsule (Linzess) 145 mcg PO DAILY #30 caps 03/10/23 [Rx Last Taken Unknown] blood sugar diagnostic (OneTouch Ultra Test strips) #100 ea 03/11/23 [Rx Last Taken Unknown] blood-glucose meter (OneTouch Verio Flex Meter) #1 ea 03/11/23 [Rx Last Taken Unknown] metoclopramide HCl 10 mg tablet (Reglan) 10 mg PO Q6H PRN nausea and vomiting #10 tabs 05/05/23 [Rx Last Taken Unknown] ondansetron 4 mg disintegrating tablet 4 mg PO Q8H PRN PRN Nausea #10 tabs 05/05/23 [Rx Last Taken Unknown] promethazine 25 mg tablet 25 mg PO Q6H PRN PRN Nausea #10 TABLETS 05/05/23 [Rx Last Taken Unknown] Allergy/AdvReac Type Severity Reaction Status Date / Time simvastatin [From Zocor] Allergy Swelling Verified 05/05/23 15:15 Sulfa (Sulfonamide Allergy Swelling Verified 05/05/23 15:15 Antibiotics) Family History Mother Hypertension Lupus Glaucoma Arthritis Neuropathy Brother Diabetes Hypertension Hyperlipemia Surgical History H/O foot surgery h/o left hand surgery History of esophagogastroduodenoscopy (EGD) History of esophagogastroduodenoscopy (EGD) History of hip surgery History of hysterectomy History of left knee surgery History of rotator cuff surgery Hx of colonoscopy Social History household members: other details: daughter housing: house Smoking Status: Former smoker Tobacco: How many years used: 35 alcohol intake: never what type of physical activity do you participate in: none do you feel safe at home: Yes ROS ROS ED ROS Narrative A complete review of systems was performed and is negative except as documented in the history of present illness. Some specific details below. Constitutional: No recent fevers or chills. Has had weight loss though. EYE: No visual complaints or pain. ENT: No difficulty swallowing. No swelling. No pain. No GERD symptoms CV: No chest pain or palpitations. Respiratory: No dyspnea. No hemoptysis. No difficulty taking breaths. GI: Please see history of present illness. : No frequency dysuria or hematuria. Musculoskeletal: No recent trauma. No pains. Skin: No rash. Nondiaphoretic. Neuro: No weakness or numbness. Endocrine: No polyuria or polydipsia. EXAM Physical Exam Narrative Exam Narrative: CONSTITUTIONAL: Patient is nontoxic in appearance. The patient looks comfortable. HEENT: No notable trauma. Mucous membranes mildly dry. No sinus tenderness. No indication of pain with swallowing. EYES: No conjunctival injection. No proptosis. CARDIOVASCULAR: Regular rate. Regular rhythm. No notable murmur. No JVD. RESPIRATORY: No respiratory distress. Breathing is unlabored. No wheezes. No rhonchi. No rales. No pain with a deep breath. GASTROINTESTINAL: Not distended. Bowel sounds are normal. Does have some mild epigastric tenderness but no rebound or guarding. I feel no mass. GENITOURINARY: No tenderness over the bladder. No CVA tenderness. MUSCULOSKELETAL: Atraumatic. No peripheral edema. No cord. No tenderness along the deep venous system. No asymmetry. NEUROLOGICAL: Patient is alert and appropriate. No focal deficit noted. SKIN: No noted rashes. No diaphoresis. PSYCHIATRIC: Patient is calm. Mood is appropriate. Const Vital Signs: 05/05/23 15:15 05/05/23 17:15 05/05/23 19:00 Temperature 97.9 F Temperature Source Temporal Pulse Rate 93 81 Respiratory Rate 17 16 15 Blood Pressure 118/78 116/78 Blood Pressure Mean 91 90 Pulse Ox 98 94 Oxygen Delivery Method Room Air Room Air MDM MDM MDM Narrative Medical decision making narrative: CBC is normal. Patient's electrolytes are normal other than mild elevation in the creatinine and mildly low sodium. But this should correct. Her glucose was high at 398. But IV fluids should help bring this down. She also states she is comfortable managing this. Patient's liver function test showed minimal elevation of alkaline phosphatase but otherwise normal. Patient's lipase is normal Patient's urine does not show any convincing evidence of infection. My independent interpretation of her CT scan of the abdomen with no obstruction. Reading or findings consistent with enterocolitis. Patient was feeling better. She tolerated p.o. Been having symptoms for a while. She has recurrent symptoms. She denies known history of diabetic gastroparesis although I wonder if that might be a contributing feature. She isfeeling better. She would like to try going home which I think is a reasonable option. I had Phenergan. She has some Zofran at home but I will write for more. I will also write for Reglan to see if this will give her some benefit. I explained she should use Reglan or Phenergan but not both at the same time. She can try Zofran between 1 of those. If she is having fevers, pain, cannot keep anything down or worsening symptoms she may need to come in. Lab Data Attestation: I reviewed the patient's lab results. Labs: Laboratory Results - last 24 hr 05/05/23 05/05/23 15:48 16:25 WBC 9.3 RBC 5.18 Hgb 14.3 Hct 43.3 MCV 83.6 MCH 27.6 MCHC 33.0 RDW Std Deviation 41.0 RDW Coeff of Celine 13.2 Plt Count 274 MPV 10.7 Immature Gran % (Auto) 0.400 Neut % (Auto) 80.4 H Lymph % (Auto) 12.3 L Simpson % (Auto) 5.8 Eos % (Auto) 0.3 Baso % (Auto) 0.8 Absolute Neuts (auto) 7.5 Absolute Lymphs (auto) 1.15 Nucleated RBC % 0 Sodium 130 L Potassium 3.9 Chloride 95 L Carbon Dioxide 24.0 Anion Gap 11 BUN 18 Creatinine 1.18 H Estim Creat Clear Calc 41.94 Est GFR (MDRD) Af Amer 60 Est GFR (MDRD) Non-Af 50 L BUN/Creatinine Ratio 15.3 Glucose 398 H Calcium 9.3 Total Bilirubin 0.50 AST 16 ALT 21 Alkaline Phosphatase 144 H Total Protein 7.1 Albumin 3.7 Globulin 3.4 Albumin/Globulin Ratio 1.1 Lipase 29 Urine Color Yellow Urine Clarity Clear Urine pH 6.0 Ur Specific [place] 1.015 Urine Protein 15 H Urine Glucose (UA) 1000 H Urine Ketones 50 H Urine Occult Blood Negative Urine Nitrite Negative Urine Bilirubin Negative Urine Urobilinogen Normal Ur Leukocyte Esterase 25 H Urine RBC 0-5 SEEN Urine WBC 0 SEEN Ur Squamous Epith Cells 0-5 SEEN Urine Bacteria 0 SEEN Urine Mucus 0 SEEN Radiography Diagnostic Testing: Clinical Impression(s) from Imaging Studies Abdomen/Pelvis CT 05/05/23 15:40 IMPRESSION: Findings compatible with enterocolitis. No acute appendicitis or bowel obstruction. Unremarkable abdominal viscera. Electronically Signed: Virginia De Luna MD at 17:09 EDT , Discharge Plan Triage Chief Complaint: Abd Pain ED Provider: Brett Morgan Dx/Rx/DC Orders Clinical Impression: History of diabetes mellitus, Nausea & vomiting, Enterocolitis Instructions: ED Diet Vomiting Diarrhea Prescriptions: New promethazine [promethazine] 25 mg tablet 25 mg PO Q6H PRN PRN (Reason: Nausea) Qty: 10 0RF ondansetron [ondansetron] 4 mg tablet,disintegrating 4 mg PO Q8H PRN PRN (Reason: Nausea) Qty: 10 0RF metoclopramide HCl [Reglan] 10 mg tablet 10 mg PO Q6H PRN (Reason: nausea and vomiting) Qty: 10 0RF Rx Instructions: Try this Reglan or Phenergan but not both together. No Action loratadine 10 mg tablet 10 mg PO DAILY gabapentin 300 mg capsule 90,000 mg PO .QID meloxicam 15 mg tablet PO Patient Comments: TAKE 1 TABLET BY MOUTH ONCE DAILY NEEDED FOR PAIN. WITH FOOD. doxycycline hyclate 100 mg capsule 100 mg PO BID Qty: 60 0RF Linzess 145 mcg capsule 145 mcg PO DAILY Qty: 30 3RF atorvastatin 20 MG tablet 40 mg PO QHS lisinopril-hydrochlorothiazide 1 EACH tablet 1 tab PO DAILY Patient Comments: TAKE 1 TABLET BY MOUTH EVERY DAY sertraline 100 MG tablet 100 mg PO DAILY Patient Comments: TAKE 1 TABLET BY MOUTH EVERY DAY omeprazole 40 mg capsule,delayed release(DR/EC) 40 mg PO DAILY Patient Comments: TAKE 1 CAPSULE BY MOUTH EVERY DAY trazodone 100 MG tablet 100 mg PO QHS Rx Instructions: Hold trazodone for 1 week while patient is on Cipro to avoid QTC prolongation (DME) pen needle, diabetic [BD Ultra-Fine Sheri Pen Needle] 32 gauge x 5/32 needle See Rx Instructions .ROUTE .MEDSUPPLY Qty: 150 2RF Rx Instructions: 4 time daily insulin lispro [Humalog U-100 Insulin] 100 unit/mL solution 100 unit subcut DAILY Qty: 30 6RF (DME) blood-glucose meter [OneTouch Verio Flex meter] [facility] See Rx Instructions .Route Qty: 1 0RF Rx Instructions: As directed (DME) OneTouch Ultra Test Strip See Rx Instructions .Route Qty: 100 5RF Rx Instructions: 4x/day Primary Care Provider: Zachary Toney Referrals: FriendFelton DO [Med Staff - Active Staff] - As soon as possible Zachary Toney MD [Primary Care Provider] - Disposition Disposition: Home, Self Care What to do if you have Problems For any increased pain, shortness of breath, bleeding, nausea or vomiting, chestpain, or any unexpected problems, contact your Primary Care Provider. Call [facility] ([phone]) or report to the closest Emergency Room. Call 911 if necessary. 05/05/232013 <Electronically signed by Brett Morgan MD> Cosigner Signature (if applicable): CC: Dr. Zachary Toney MD ~ Signed [facility] Work Phone: [phone] 532-653706-28-2023 History of Present illness Narrative* Zachary Toney MD - 02/24/2023 10:13 AM EDT This note was created using [employer]. Subjective Stefanie Simmons is a 62 year old female. She needed handicap permit for ongoing gait abnormality. Sheused a cane at times. Diabetes, hypertension, and lipids were controlled. DEBBIE was untreated due to claustrophobia. Weight was increasing. She complained of numbness, tingling, burning of the left anterolateral thigh for 4 months, worse with sitting or prolonged walking. She sees Dr. Brown for GI, and [place] [facility] for insulin pump management. Review of Systems Constitutional: Negative for fever. Respiratory: Negative for shortness of breath. Cardiovascular: Negative for chest pain, palpitations and leg swelling. Gastrointestinal: Negative. Musculoskeletal: Positive for back pain and gait problem. ACTIVE PROBLEM LIST Essential Hypertension Other Hyperlipidemia Type 2 Diabetes Mellitus With Diabetic Neuropathy, With Long-Term Current Use of Insulin (Hcc) Gerd (Gastroesophageal Reflux Disease) Symptomatic Menopausal Or Female Climacteric States Multinodular Thyroid Depressive Disorder Bilateral Carotid Artery Stenosis Obesity, Class I, Bmi 30-34.9 Degeneration of Intervertebral Disc of Cervical Region Restless Legs Gait Abnormality DEBBIE (obstructive sleep apnea) mild; moderate when supine. Seasonal Allergies Osteoarthritis of Both Thumbs Vitamin D Deficiency Telangiectasia of Skin Social History Tobacco Use Smoking status: Former Packs/day: 1.00 Years: 34.00 Pack years: 34.00 Types: Cigarettes Quit date: 11/30/2008 Years since quittin.2 Smokeless tobacco: Never Vaping Use Vaping Use: Never used Substance Use Topics Alcohol use: Yes Alcohol/week: 7.5 standard drinks Types: 3 Cans of Beer (12oz) per week Comment: Occasionally Drug use: Yes Frequency: 7.0 times per week Types: Marijuana Current Outpatient Medications Medication Sig gabapentin (NEURONTIN) 300 mg capsule Take 1 capsule at around Noon, 1 capsule with dinner and 3 capsules at bedtime. meloxicam (MOBIC) 15 mg tablet Take 1 tablet by mouth once daily as needed for pain. With food. fexofenadine (MANJULA ALLERGY) 180 mg tablet Take 1 tablet by mouth once daily. omeprazole (PRILOSEC) 40 mg capsule Take 1 capsule by mouth once daily. atorvastatin (LIPITOR) 40 mg tablet Take 1 tablet by mouth once daily. sertraline (ZOLOFT) 100 mg tablet Take 1 tablet by mouth once daily. lisinopril-hydroCHLOROthiazide (PRINZIDE,ZESTORETIC) 20-12.5 mg per tablet Take 2 tablets by mouth once daily. traZODone (DESYREL) 100 mg tablet Take 1 tablet by mouth daily at bedtime. NOVOLOG U-100 INSULIN ASPART 100 unit/mL For insulin pump. Per endocrinology. estradiol (ESTRACE) 0.01 % (0.1 mg/gram) vaginal cream ondansetron orally disintegrating (ZOFRAN ODT) 4 mg disintegrating tablet Take 1 tablet by mouth every 8 hours as needed for nausea/vomiting. CPAP/BIPAP/OTHER Auto PAP with humidification set at 5-15 cmH2O. Needs formal mask fit. (Patient not taking: Reported on 02/24/2023) No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 04/26/2011 03/27/2012 Epidermal Cyst: L mid lower cheek jawline area 04/26/2011 03/27/2012 Pilar Cyst: R side scalp 04/26/2011 Genital warts 03/05/2010 03/27/2012 documented as of this encounter (statuses as of 05/07/2023) [facility] Narrative* Problem Noted Date Diagnosed Date Resolved Date Bilateral hip pain 11/04/2021 2 Neck pain 01/15/2021 10/03/2021 Acute right ankle pain 10/18/202007/04 Displaced fracture of navicu lar (scaphoid) of right foot, initial encounter for closed fracture 07/23/2020 07/06/2021 Foot trauma, right, initial encounter 07/19/2020 07/04/2021 Esophagitis, unspecified 04/07/201211/2021 Dermatofibroma of lower extremity 04/26/2011 03/27/2012 Reticular Varicose Vein: R l eg prox outer mid ant thigh 04/26/2011 03/27/2012 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 04/26/2011 03/27/2012 Epidermal Cyst: L mid lower cheek jawline area 04/26/2011 03/27/2012 Pilar Cyst: R side scalp 04/26/2011 Genital warts 03/05/2010 03/27/2012 documented as of this encounter (statuses as of 05/07/2023) [facility] Narrative* Problem Noted Date Diagnosed Date Resolved Date Bilateral hip pain 11/04/2021 2 Neck pain 01/15/2021 10/03/2021 Acute right ankle pain 10/18/202007/04 Displaced fracture of navicu lar (scaphoid) of right foot, initial encounter for closed fracture 07/23/2020 07/06/2021 Foot trauma, right, initial encounter 07/19/2020 07/04/2021 Esophagitis, unspecified 04/07/201211/2021 Dermatofibroma of lower extremity 04/26/2011 03/27/2012 Reticular Varicose Vein: R l eg prox outer mid ant thigh 04/26/2011 03/27/2012 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 04/26/2011 03/27/2012 Epidermal Cyst: L mid lower cheek jawline area 04/26/2011 03/27/2012 Pilar Cyst: R side scalp 04/26/2011 Genital warts 03/05/2010 03/27/2012 documented as of this encounter (statuses as of 05/08/2023) [facility] of [facility] illness Narrative* Problem Noted Date Diagnosed Date Resolved Date Bilateral hip pain 11/04/2021 2 Neck pain 01/15/2021 10/03/2021 Acute right ankle pain 10/18/202007/04 Displaced fracture of navicu lar (scaphoid) of right foot, initial encounter for closed fracture 07/23/2020 07/06/2021 Foot trauma, right, initial encounter 07/19/2020 07/04/2021 Esophagitis, unspecified 04/07/201211/2021 Dermatofibroma of lower extremity 04/26/2011 03/27/2012 Reticular Varicose Vein: R l eg prox outer mid ant thigh 04/26/2011 03/27/2012 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 04/26/2011 03/27/2012 Epidermal Cyst: L mid lower cheek jawline area 04/26/2011 03/27/2012 Pilar Cyst: R side scalp 04/26/2011 Genital warts 03/05/2010 03/27/2012 documented as of this encounter (statuses as of 05/14/2023) [facility] Narrative* Problem Noted Date Diagnosed Date Resolved Date Bilateral hip pain 11/04/2021 2 Neck pain 01/15/2021 10/03/2021 Acute right ankle pain 10/18/202007/04 Displaced fracture of navicu lar (scaphoid) of right foot, initial encounter for closed fracture 07/23/2020 07/06/2021 Foot trauma, right, initial encounter 07/19/2020 07/04/2021 Esophagitis, unspecified 04/07/201211/2021 Dermatofibroma of lower extremity 04/26/2011 03/27/2012 Reticular Varicose Vein: R l eg prox outer mid ant thigh 04/26/2011 03/27/2012 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 04/26/2011 03/27/2012 Epidermal Cyst: L mid lower cheek jawline area 04/26/2011 03/27/2012 Pilar Cyst: R side scalp 04/26/2011 Genital warts 03/05/2010 03/27/2012 documented as of this encounter (statuses as of 05/29/2023) [facility] Narrative* Problem Noted Date Diagnosed Date Resolved Date Bilateral hip pain 11/04/2021 2 Neck pain 01/15/2021 10/03/2021 Acute right ankle pain 10/18/202007/04 Displaced fracture of navicu lar (scaphoid) of right foot, initial encounter for closed fracture 07/23/2020 07/06/2021 Foot trauma, right, initial encounter 07/19/2020 07/04/2021 Esophagitis, unspecified 04/07/201211/2021 Dermatofibroma of lower extremity 04/26/2011 03/27/2012 Reticular Varicose Vein: R l eg prox outer mid ant thigh 04/26/2011 03/27/2012 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 04/26/2011 03/27/2012 Epidermal Cyst: L mid lower cheek jawline area 04/26/2011 03/27/2012 Pilar Cyst: R side scalp 04/26/2011 Genital warts 03/05/2010 03/27/2012 documented as of this encounter (statuses as of 06/11/2023) [facility] Narrative* Problem Noted Date Diagnosed Date Resolved Date Bilateral hip pain 11/04/2021 2 Neck pain 01/15/2021 10/03/2021 Acute right ankle pain 10/18/202007/04 Displaced fracture of navicu lar (scaphoid) of right foot, initial encounter for closed fracture 07/23/2020 07/06/2021 Foot trauma, right, initial encounter 07/19/2020 07/04/2021 Esophagitis, unspecified 04/07/201211/2021 Dermatofibroma of lower extremity 04/26/2011 03/27/2012 Reticular Varicose Vein: R l eg prox outer mid ant thigh 04/26/2011 03/27/2012 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 04/26/2011 03/27/2012 Epidermal Cyst: L mid lower cheek jawline area 04/26/2011 03/27/2012 Pilar Cyst: R side scalp 04/26/2011 Genital warts 03/05/2010 03/27/2012 documented as of this encounter (statuses as of 06/17/2023) [facility] Narrative* Problem Noted Date Diagnosed Date Resolved Date Bilateral hip pain 11/04/2021 2 Neck pain 01/15/2021 10/03/2021 Acute right ankle pain 10/18/202007/04 Displaced fracture of navicu lar (scaphoid) of right foot, initial encounter for closed fracture 07/23/2020 07/06/2021 Foot trauma, right, initial encounter 07/19/2020 07/04/2021 Esophagitis, unspecified 04/07/201211/2021 Dermatofibroma of lower extremity 04/26/2011 03/27/2012 Reticular Varicose Vein: R l eg prox outer mid ant thigh 04/26/2011 03/27/2012 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 04/26/2011 03/27/2012 Epidermal Cyst: L mid lower cheek jawline area 04/26/2011 03/27/2012 Pilar Cyst: R side scalp 04/26/2011 Genital warts 03/05/2010 03/27/2012 documented as of this encounter (statuses as of 06/29/2023) [facility] Narrative* Problem Noted Date Diagnosed Date Resolved Date Bilateral hip pain 11/04/2021 2 Neck pain 01/15/2021 10/03/2021 Acute right ankle pain 10/18/202007/04 Displaced fracture of navicu lar (scaphoid) of right foot, initial encounter for closed fracture 07/23/2020 07/06/2021 Foot trauma, right, initial encounter 07/19/2020 07/04/2021 Esophagitis, unspecified 04/07/201211/2021 Dermatofibroma of lower extremity 04/26/2011 03/27/2012 Reticular Varicose Vein: R l eg prox outer mid ant thigh 04/26/2011 03/27/2012 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 04/26/2011 03/27/2012 Epidermal Cyst: L mid lower cheek jawline area 04/26/2011 03/27/2012 Pilar Cyst: R side scalp 04/26/2011 Genital warts 03/05/2010 03/27/2012 documented as of this encounter (statuses as of 06/30/2023) [facility] Narrative* Problem Noted Date Diagnosed Date Resolved Date Bilateral hip pain 11/04/2021 2 Neck pain 01/15/2021 10/03/2021 Acute right ankle pain 10/18/202007/04 Displaced fracture of navicu lar (scaphoid) of right foot, initial encounter for closed fracture 07/23/2020 07/06/2021 Foot trauma, right, initial encounter 07/19/2020 07/04/2021 Esophagitis, unspecified 04/07/201211/2021 Dermatofibroma of lower extremity 04/26/2011 03/27/2012 Reticular Varicose Vein: R l eg prox outer mid ant thigh 04/26/2011 03/27/2012 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 04/26/2011 03/27/2012 Epidermal Cyst: L mid lower cheek jawline area 04/26/2011 03/27/2012 Pilar Cyst: R side scalp 04/26/2011 Genital warts 03/05/2010 03/27/2012 documented as of this encounter (statuses as of 08/05/2023) [facility] Narrative* Problem Noted Date Diagnosed Date Resolved Date Bilateral hip pain 11/04/2021 2 Neck pain 01/15/2021 10/03/2021 Acute right ankle pain 10/18/202007/04 Displaced fracture of navicu lar (scaphoid) of right foot, initial encounter for closed fracture 07/23/2020 07/06/2021 Foot trauma, right, initial encounter 07/19/2020 07/04/2021 Esophagitis, unspecified 04/07/201211/2021 Dermatofibroma of lower extremity 04/26/2011 03/27/2012 Reticular Varicose Vein: R l eg prox outer mid ant thigh 04/26/2011 03/27/2012 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 04/26/2011 03/27/2012 Epidermal Cyst: L mid lower cheek jawline area 04/26/2011 03/27/2012 Pilar Cyst: R side scalp 04/26/2011 Genital warts 03/05/2010 03/27/2012 documented as of this encounter (statuses as of 08/09/2023) [facility]arrative* Problem Noted Date Diagnosed Date Resolved Date Bilateral hip pain 11/04/2021 2 Neck pain 01/15/2021 10/03/2021 Acute right ankle pain 10/18/202007/04 Displaced fracture of navicu lar (scaphoid) of right foot, initial encounter for closed fracture 07/23/2020 07/06/2021 Foot trauma, right, initial encounter 07/19/2020 07/04/2021 Esophagitis, unspecified 04/07/201211/2021 Dermatofibroma of lower extremity 04/26/2011 03/27/2012 Reticular Varicose Vein: R l eg prox outer mid ant thigh 04/26/2011 03/27/2012 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 04/26/2011 03/27/2012 Epidermal Cyst: L mid lower cheek jawline area 04/26/2011 03/27/2012 Pilar Cyst: R side scalp 04/26/2011 Genital warts 03/05/2010 03/27/2012 documented as of this encounter (statuses as of 09/26/2023) [facility] Narrative* Problem Noted Date Diagnosed Date Resolved Date Bilateral hip pain 11/04/2021 2 Neck pain 01/15/2021 10/03/2021 Acute right ankle pain 10/18/202007/04 Displaced fracture of navicu lar (scaphoid) of right foot, initial encounter for closed fracture 07/23/2020 07/06/2021 Foot trauma, right, initial encounter 07/19/2020 07/04/2021 Esophagitis, unspecified 04/07/201211/2021 Dermatofibroma of lower extremity 04/26/2011 03/27/2012 Reticular Varicose Vein: R l eg prox outer mid ant thigh 04/26/2011 03/27/2012 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 04/26/2011 03/27/2012 Epidermal Cyst: L mid lower cheek jawline area 04/26/2011 03/27/2012 Pilar Cyst: R side scalp 04/26/2011 Genital warts 03/05/2010 03/27/2012 documented as of this encounter (statuses as of 10/13/2023) [facility]arrative* Problem Noted Date Diagnosed Date Resolved Date Bilateral hip pain 11/04/2021 2 Neck pain 01/15/2021 10/03/2021 Acute right ankle pain 10/18/202007/04 Displaced fracture of navicu lar (scaphoid) of right foot, initial encounter for closed fracture 07/23/2020 07/06/2021 Foot trauma, right, initial encounter 07/19/2020 07/04/2021 Esophagitis, unspecified 04/07/201211/2021 Dermatofibroma of lower extremity 04/26/2011 03/27/2012 Reticular Varicose Vein: R l eg prox outer mid ant thigh 04/26/2011 03/27/2012 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 04/26/2011 03/27/2012 Epidermal Cyst: L mid lower cheek jawline area 04/26/2011 03/27/2012 Pilar Cyst: R side scalp 04/26/2011 Genital warts 03/05/2010 03/27/2012 documented as of this encounter (statuses as of 11/05/2023) [facility] Narrative* Problem Noted Date Diagnosed Date Resolved Date Bilateral hip pain 11/04/2021 2 Neck pain 01/15/2021 10/03/2021 Acute right ankle pain 10/18/202007/04 Displaced fracture of navicu lar (scaphoid) of right foot, initial encounter for closed fracture 07/23/2020 07/06/2021 Foot trauma, right, initial encounter 07/19/2020 07/04/2021 Esophagitis, unspecified 04/07/201211/2021 Dermatofibroma of lower extremity 04/26/2011 03/27/2012 Reticular Varicose Vein: R l eg prox outer mid ant thigh 04/26/2011 03/27/2012 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 04/26/2011 03/27/2012 Epidermal Cyst: L mid lower cheek jawline area 04/26/2011 03/27/2012 Pilar Cyst: R side scalp 04/26/2011 Genital warts 03/05/2010 03/27/2012 documented as of this encounter (statuses as of 11/06/2023) [facility] Narrative* Problem Noted Date Diagnosed Date Resolved Date Bilateral hip pain 11/04/2021 2 Neck pain 01/15/2021 10/03/2021 Acute right ankle pain 10/18/202007/04 Displaced fracture of navicu lar (scaphoid) of right foot, initial encounter for closed fracture 07/23/2020 07/06/2021 Foot trauma, right, initial encounter 07/19/2020 07/04/2021 Esophagitis, unspecified 04/07/201211/2021 Dermatofibroma of lower extremity 04/26/2011 03/27/2012 Reticular Varicose Vein: R l eg prox outer mid ant thigh 04/26/2011 03/27/2012 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 04/26/2011 03/27/2012 Epidermal Cyst: L mid lower cheek jawline area 04/26/2011 03/27/2012 Pilar Cyst: R side scalp 04/26/2011 Genital warts 03/05/2010 03/27/2012 documented as of this encounter (statuses as of 11/08/2023) [facility] Past [facility] Narrative* Problem Noted Date Diagnosed Date Resolved Date Bilateral hip pain 11/04/2021 2 Neck pain 01/15/2021 10/03/2021 Acute right ankle pain 10/18/202007/04 Displaced fracture of navicu lar (scaphoid) of right foot, initial encounter for closed fracture 07/23/2020 07/06/2021 Foot trauma, right, initial encounter 07/19/2020 07/04/2021 Esophagitis, unspecified 04/07/201211/2021 Dermatofibroma of lower extremity 04/26/2011 03/27/2012 Reticular Varicose Vein: R l eg prox outer mid ant thigh 04/26/2011 03/27/2012 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 04/26/2011 03/27/2012 Epidermal Cyst: L mid lower cheek jawline area 04/26/2011 03/27/2012 Pilar Cyst: R side scalp 04/26/2011 Genital warts 03/05/2010 03/27/2012 documented as of this encounter (statuses as of 11/11/2023) [facility] Past illness Narrative* Problem Noted Date Diagnosed Date Resolved Date Bilateral hip pain 11/04/2021 2 Neck pain 01/15/2021 10/03/2021 Acute right ankle pain 10/18/202007/04 Displaced fracture of navicu lar (scaphoid) of right foot, initial encounter for closed fracture 07/23/2020 07/06/2021 Foot trauma, right, initial encounter 07/19/2020 07/04/2021 Esophagitis, unspecified 04/07/201211/2021 Dermatofibroma of lower extremity 04/26/2011 03/27/2012 Reticular Varicose Vein: R l eg prox outer mid ant thigh 04/26/2011 03/27/2012 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 04/26/2011 03/27/2012 Epidermal Cyst: L mid lower cheek jawline area 04/26/2011 03/27/2012 Pilar Cyst: R side scalp 04/26/2011 Genital warts 03/05/2010 03/27/2012 documented as of this encounter (statuses as of 11/18/2023) [facility] Past illness Narrative* Problem Noted Date Diagnosed Date Resolved Date Bilateral hip pain 11/04/2021 2 Neck pain 01/15/2021 10/03/2021 Acute right ankle pain 10/18/202007/04 Displaced fracture of navicu lar (scaphoid) of right foot, initial encounter for closed fracture 07/23/2020 07/06/2021 Foot trauma, right, initial encounter 07/19/2020 07/04/2021 Esophagitis, unspecified 04/07/201211/2021 Dermatofibroma of lower extremity 04/26/2011 03/27/2012 Reticular Varicose Vein: R l eg prox outer mid ant thigh 04/26/2011 03/27/2012 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 04/26/2011 03/27/2012 Epidermal Cyst: L mid lower cheek jawline area 04/26/2011 03/27/2012 Pilar Cyst: R side scalp 04/26/2011 Genital warts 03/05/2010 03/27/2012 documented as of this encounter (statuses as of 11/24/2023) [facility]22 History of Past illness Narrative* Problem Noted Date Diagnosed Date Resolved Date Bilateral hip pain 11/04/2021 Neck pain 01/15/2021 10/03/2021 Acute right ankle pain 10/18/202007/04 Displaced fracture of navicu lar (scaphoid) of right foot, initial encounter for closed fracture 07/23/2020 07/06/2021 Foot trauma, right, initial encounter 07/19/2020 07/04/2021 Esophagitis, unspecified 04/07/201211/2021 Dermatofibroma of lower extremity 04/26/2011 03/27/2012 Reticular Varicose Vein: R l eg prox outer mid ant thigh 04/26/2011 03/27/2012 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 04/26/2011 03/27/2012 Epidermal Cyst: L mid lower cheek jawline area 04/26/2011 03/27/2012 Pilar Cyst: R side scalp 04/26/2011 Genital warts 03/05/2010 03/27/2012 documented as of this encounter (statuses as of 12/17/2023) [facility] History of Past illness Narrative* Problem Noted Date Resolved Date Neck pain 01/15/2021 10/03/2021 Acute right ankle pain 10/18/2020 Displaced fracture of navicu lar (scaphoid) of right foot, initial encounter for closed fracture 07/23/2020 07/06/2021 Foot trauma, right, initial encounter 07/19/2020 07/04/2021 Esophagitis, unspecified 04/07/2012 022 Dermatofibroma of lower extremity 04/26/2011 03/27/2012 Reticular Varicose Vein: R leg prox outer mid an t thigh 04/26/2011 03/27/2012 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 04/26/2011 03/27/2012 Epidermal Cyst: L mid lower cheek jawline area 0 04/26/2011 03/27/2012 Pilar Cyst: R side scalp 04/26/2011 012 Genital warts 03/05/2010 03/27/2012 documented as of this encounter (statuses as of 12/08/2021) [facility] History of Past illness Narrative* Problem Noted Date Resolved Date Neck pain 01/15/2021 10/03/2021 Acute right ankle pain 10/18/2020 Displaced fracture of navicu lar (scaphoid) of right foot, initial encounter for closed fracture 07/23/2020 07/06/2021 Foot trauma, right, initial encounter 07/19/2020 07/04/2021 Esophagitis, unspecified 04/07/2012 022 Dermatofibroma of lower extremity 04/26/2011 03/27/2012 Reticular Varicose Vein: R leg prox outer mid an t thigh 04/26/2011 03/27/2012 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 04/26/2011 03/27/2012 Epidermal Cyst: L mid lower cheek jawline area 0 04/26/2011 03/27/2012 Pilar Cyst: R side scalp 04/26/2011 012 Genital warts 03/05/2010 03/27/2012 documented as of this encounter (statuses as of 02/09/2022) [facility] History of Past illness Narrative* Problem Noted Date Resolved Date Neck pain 01/15/2021 10/03/2021 Acute right ankle pain 10/18/2020 Displaced fracture of navicu lar (scaphoid) of right foot, initial encounter for closed fracture 07/23/2020 07/06/2021 Foot trauma, right, initial encounter 07/19/2020 07/04/2021 Esophagitis, unspecified 04/07/2012 022 Dermatofibroma of lower extremity 04/26/2011 03/27/2012 Reticular Varicose Vein: R leg prox outer mid an t thigh 04/26/2011 03/27/2012 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 04/26/2011 03/27/2012 Epidermal Cyst: L mid lower cheek jawline area 0 04/26/2011 03/27/2012 Pilar Cyst: R side scalp 04/26/2011 012 Genital warts 03/05/2010 03/27/2012 documented as of this encounter (statuses as of 02/25/2022) [facility] History of Past illness Narrative* Problem Noted Date Resolved Date Neck pain 01/15/2021 10/03/2021 Acute right ankle pain 10/18/2020 Displaced fracture of navicu lar (scaphoid) of right foot, initial encounter for closed fracture 07/23/2020 07/06/2021 Foot trauma, right, initial encounter 07/19/2020 07/04/2021 Esophagitis, unspecified 04/07/2012 022 Dermatofibroma of lower extremity 04/26/2011 03/27/2012 Reticular Varicose Vein: R leg prox outer mid an t thigh 04/26/2011 03/27/2012 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 04/26/2011 03/27/2012 Epidermal Cyst: L mid lower cheek jawline area 0 04/26/2011 03/27/2012 Pilar Cyst: R side scalp 04/26/2011 012 Genital warts 03/05/2010 03/27/2012 documented as of this encounter (statuses as of 02/26/2022) [facility] History of Past illness Narrative* Problem Noted Date Resolved Date Neck pain 01/15/2021 10/03/2021 Acute right ankle pain 10/18/2020 1 Displaced fracture of navicu lar (scaphoid) of right foot, initial encounter for closed fracture 07/23/2020 07/06/2021 Foot trauma, right, initial encounter 07/19/2020 07/04/2021 Esophagitis, unspecified 04/07/2012 022 Dermatofibroma of lower extremity 04/26/2011 03/27/2012 Reticular Varicose Vein: R leg prox outer mid an t thigh 04/26/2011 03/27/2012 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 04/26/2011 03/27/2012 Epidermal Cyst: L mid lower cheek jawline area 0 04/26/2011 03/27/2012 Pilar Cyst: R side scalp 04/26/2011 012 Genital warts 03/05/2010 03/27/2012 documented as of this encounter (statuses as of 02/26/2022) [facility] History of Past illness Narrative* Problem Noted Date Resolved Date Neck pain 01/15/2021 10/03/2021 Acute right ankle pain 10/18/2020 Displaced fracture of navicu lar (scaphoid) of right foot, initial encounter for closed fracture 07/23/2020 07/06/2021 Foot trauma, right, initial encounter 07/19/2020 07/04/2021 Esophagitis, unspecified 04/07/2012 022 Dermatofibroma of lower extremity 04/26/2011 03/27/2012 Reticular Varicose Vein: R leg prox outer mid an t thigh 04/26/2011 03/27/2012 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 04/26/2011 03/27/2012 Epidermal Cyst: L mid lower cheek jawline area 0 04/26/2011 03/27/2012 Pilar Cyst: R side scalp 04/26/2011 012 Genital warts 03/05/2010 03/27/2012 documented as of this encounter (statuses as of 02/28/2022) [facility] History of Past illness Narrative* Problem Noted Date Resolved Date Neck pain 01/15/2021 10/03/2021 Acute right ankle pain 10/18/2020 11/05/202 1 Displaced fracture of navicu lar (scaphoid) of right foot, initial encounter for closed fracture 07/23/2020 07/06/2021 Foot trauma, right, initial encounter 07/19/2020 07/04/2021 Esophagitis, unspecified 04/07/2012 022 Dermatofibroma of lower extremity 04/26/2011 03/27/2012 Reticular Varicose Vein: R leg prox outer mid an t thigh 04/26/2011 03/27/2012 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 04/26/2011 03/27/2012 Epidermal Cyst: L mid lower cheek jawline area 0 04/26/2011 03/27/2012 Pilar Cyst: R side scalp 04/26/2011 012 Genital warts 03/05/2010 03/27/2012 documented as of this encounter (statuses as of 03/03/2022) [facility] History of Past illness Narrative* Problem Noted Date Resolved Date Neck pain 01/15/2021 10/03/2021 Acute right ankle pain 10/18/2020 Displaced fracture of navicu lar (scaphoid) of right foot, initial encounter for closed fracture 07/23/2020 07/06/2021 Foot trauma, right, initial encounter 07/19/2020 07/04/2021 Esophagitis, unspecified 04/07/2012 022 Dermatofibroma of lower extremity 04/26/2011 03/27/2012 Reticular Varicose Vein: R leg prox outer mid an t thigh 04/26/2011 03/27/2012 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 04/26/2011 03/27/2012 Epidermal Cyst: L mid lower cheek jawline area 0 04/26/2011 03/27/2012 Pilar Cyst: R side scalp 04/26/2011 012 Genital warts 03/05/2010 03/27/2012 documented as of this encounter (statuses as of 03/05/2022) [facility] History of Past illness Narrative* Problem Noted Date Resolved Date Neck pain 01/15/2021 10/03/2021 Acute right ankle pain 10/18/2020 Displaced fracture of navicu lar (scaphoid) of right foot, initial encounter for closed fracture 07/23/2020 07/06/2021 Foot trauma, right, initial encounter 07/19/2020 07/04/2021 Esophagitis, unspecified 04/07/2012 022 Dermatofibroma of lower extremity 04/26/2011 03/27/2012 Reticular Varicose Vein: R leg prox outer mid an t thigh 04/26/2011 03/27/2012 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 04/26/2011 03/27/2012 Epidermal Cyst: L mid lower cheek jawline area 0 04/26/2011 03/27/2012 Pilar Cyst: R side scalp 04/26/2011 012 Genital warts 03/05/2010 03/27/2012 documented as of this encounter (statuses as of 03/17/2022) [facility] History of Past illness Narrative* Problem Noted Date Resolved Date Neck pain 01/15/2021 10/03/2021 Acute right ankle pain 10/18/2020 Displaced fracture of navicu lar (scaphoid) of right foot, initial encounter for closed fracture 07/23/2020 07/06/2021 Foot trauma, right, initial encounter 07/19/2020 07/04/2021 Esophagitis, unspecified 04/07/2012 022 Dermatofibroma of lower extremity 04/26/2011 03/27/2012 Reticular Varicose Vein: R leg prox outer mid an t thigh 04/26/2011 03/27/2012 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 04/26/2011 03/27/2012 Epidermal Cyst: L mid lower cheek jawline area 0 04/26/2011 03/27/2012 Pilar Cyst: R side scalp 04/26/2011 012 Genital warts 03/05/2010 03/27/2012 documented as of this encounter (statuses as of 03/18/2022) [facility] History of Past illness Narrative* Problem Noted Date Resolved Date Neck pain 01/15/2021 10/03/2021 Acute right ankle pain 10/18/2020 Displaced fracture of navicu lar (scaphoid) of right foot, initial encounter for closed fracture 07/23/2020 07/06/2021 Foot trauma, right, initial encounter 07/19/2020 07/04/2021 Esophagitis, unspecified 04/07/2012 022 Dermatofibroma of lower extremity 04/26/2011 03/27/2012 Reticular Varicose Vein: R leg prox outer mid an t thigh 04/26/2011 03/27/2012 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 04/26/2011 03/27/2012 Epidermal Cyst: L mid lower cheek jawline area 0 04/26/2011 03/27/2012 Pilar Cyst: R side scalp 04/26/2011 012 Genital warts 03/05/2010 03/27/2012 documented as of this encounter (statuses as of 03/21/2022) [facility] History of Past illness Narrative* Problem Noted Date Resolved Date Neck pain 01/15/2021 10/03/2021 Acute right ankle pain 10/18/2020 Displaced fracture of navicu lar (scaphoid) of right foot, initial encounter for closed fracture 07/23/2020 07/06/2021 Foot trauma, right, initial encounter 07/19/2020 07/04/2021 Esophagitis, unspecified 04/07/2012 022 Dermatofibroma of lower extremity 04/26/2011 03/27/2012 Reticular Varicose Vein: R leg prox outer mid an t thigh 04/26/2011 03/27/2012 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 04/26/2011 03/27/2012 Epidermal Cyst: L mid lower cheek jawline area 0 04/26/2011 03/27/2012 Pilar Cyst: R side scalp 04/26/2011 012 Genital warts 03/05/2010 03/27/2012 documented as of this encounter (statuses as of 03/24/2022) [facility] History of Past illness Narrative* Problem Noted Date Resolved Date Neck pain 01/15/2021 10/03/2021 Acute right ankle pain 10/18/2020 Displaced fracture of navicu lar (scaphoid) of right foot, initial encounter for closed fracture 07/23/2020 07/06/2021 Foot trauma, right, initial encounter 07/19/2020 07/04/2021 Esophagitis, unspecified 04/07/2012 022 Dermatofibroma of lower extremity 04/26/2011 03/27/2012 Reticular Varicose Vein: R leg prox outer mid an t thigh 04/26/2011 03/27/2012 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 04/26/2011 03/27/2012 Epidermal Cyst: L mid lower cheek jawline area 0 04/26/2011 03/27/2012 Pilar Cyst: R side scalp 04/26/2011 012 Genital warts 03/05/2010 03/27/2012 documented as of this encounter (statuses as of 03/25/2022) [facility] History of Past illness Narrative* Problem Noted Date Resolved Date Neck pain 01/15/2021 10/03/2021 Acute right ankle pain 10/18/2020 Displaced fracture of navicu lar (scaphoid) of right foot, initial encounter for closed fracture 07/23/2020 07/06/2021 Foot trauma, right, initial encounter 07/19/2020 07/04/2021 Esophagitis, unspecified 04/07/2012 022 Dermatofibroma of lower extremity 04/26/2011 03/27/2012 Reticular Varicose Vein: R leg prox outer mid an t thigh 04/26/2011 03/27/2012 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 04/26/2011 03/27/2012 Epidermal Cyst: L mid lower cheek jawline area 0 04/26/2011 03/27/2012 Pilar Cyst: R side scalp 04/26/2011 012 Genital warts 03/05/2010 03/27/2012 documented as of this encounter (statuses as of 03/28/2022) [facility] History of Past illness Narrative* Problem Noted Date Resolved Date Neck pain 01/15/2021 10/03/2021 Acute right ankle pain 10/18/2020 Displaced fracture of navicu lar (scaphoid) of right foot, initial encounter for closed fracture 07/23/2020 07/06/2021 Foot trauma, right, initial encounter 07/19/2020 07/04/2021 Esophagitis, unspecified 04/07/2012 022 Dermatofibroma of lower extremity 04/26/2011 03/27/2012 Reticular Varicose Vein: R leg prox outer mid an t thigh 04/26/2011 03/27/2012 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 04/26/2011 03/27/2012 Epidermal Cyst: L mid lower cheek jawline area 0 04/26/2011 03/27/2012 Pilar Cyst: R side scalp 04/26/2011 012 Genital warts 03/05/2010 03/27/2012 documented as of this encounter (statuses as of 04/04/2022) [facility] History of Past illness Narrative* Problem Noted Date Resolved Date Neck pain 01/15/2021 10/03/2021 Acute right ankle pain 10/18/2020 Displaced fracture of navicu lar (scaphoid) of right foot, initial encounter for closed fracture 07/23/2020 07/06/2021 Foot trauma, right, initial encounter 07/19/2020 07/04/2021 Esophagitis, unspecified 04/07/2012 022 Dermatofibroma of lower extremity 04/26/2011 03/27/2012 Reticular Varicose Vein: R leg prox outer mid an t thigh 04/26/2011 03/27/2012 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 04/26/2011 03/27/2012 Epidermal Cyst: L mid lower cheek jawline area 0 04/26/2011 03/27/2012 Pilar Cyst: R side scalp 04/26/2011 012 Genital warts 03/05/2010 03/27/2012 documented as of this encounter (statuses as of 04/09/2022) [facility] History of Past illness Narrative* Problem Noted Date Resolved Date Neck pain 01/15/2021 10/03/2021 Acute right ankle pain 10/18/2020 Displaced fracture of navicu lar (scaphoid) of right foot, initial encounter for closed fracture 07/23/2020 07/06/2021 Foot trauma, right, initial encounter 07/19/2020 07/04/2021 Esophagitis, unspecified 04/07/2012 022 Dermatofibroma of lower extremity 04/26/2011 03/27/2012 Reticular Varicose Vein: R leg prox outer mid an t thigh 04/26/2011 03/27/2012 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 04/26/2011 03/27/2012 Epidermal Cyst: L mid lower cheek jawline area 0 04/26/2011 03/27/2012 Pilar Cyst: R side scalp 04/26/2011 012 Genital warts 03/05/2010 03/27/2012 documented as of this encounter (statuses as of 04/14/2022) [facility] History of Past illness Narrative* Problem Noted Date Resolved Date Neck pain 01/15/2021 10/03/2021 Acute right ankle pain 10/18/2020 Displaced fracture of navicu lar (scaphoid) of right foot, initial encounter for closed fracture 07/23/2020 07/06/2021 Foot trauma, right, initial encounter 07/19/2020 07/04/2021 Esophagitis, unspecified 04/07/2012 022 Dermatofibroma of lower extremity 04/26/2011 03/27/2012 Reticular Varicose Vein: R leg prox outer mid an t thigh 04/26/2011 03/27/2012 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 04/26/2011 03/27/2012 Epidermal Cyst: L mid lower cheek jawline area 0 04/26/2011 03/27/2012 Pilar Cyst: R side scalp 04/26/2011 012 Genital warts 03/05/2010 03/27/2012 documented as of this encounter (statuses as of 04/28/2022) [facility] History of Past illness Narrative* Problem Noted Date Resolved Date Neck pain 01/15/2021 10/03/2021 Acute right ankle pain 10/18/2020 Displaced fracture of navicu lar (scaphoid) of right foot, initial encounter for closed fracture 07/23/2020 07/06/2021 Foot trauma, right, initial encounter 07/19/2020 07/04/2021 Esophagitis, unspecified 04/07/2012 022 Dermatofibroma of lower extremity 04/26/2011 03/27/2012 Reticular Varicose Vein: R leg prox outer mid an t thigh 04/26/2011 03/27/2012 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 04/26/2011 03/27/2012 Epidermal Cyst: L mid lower cheek jawline area 0 04/26/2011 03/27/2012 Pilar Cyst: R side scalp 04/26/2011 012 Genital warts 03/05/2010 03/27/2012 documented as of this encounter (statuses as of 04/29/2022) [facility] History of Past illness Narrative* Problem Noted Date Resolved Date Neck pain 01/15/2021 10/03/2021 Acute right ankle pain 10/18/2020 Displaced fracture of navicu lar (scaphoid) of right foot, initial encounter for closed fracture 07/23/2020 07/06/2021 Foot trauma, right, initial encounter 07/19/2020 07/04/2021 Esophagitis, unspecified 04/07/2012 022 Dermatofibroma of lower extremity 04/26/2011 03/27/2012 Reticular Varicose Vein: R leg prox outer mid an t thigh 04/26/2011 03/27/2012 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 04/26/2011 03/27/2012 Epidermal Cyst: L mid lower cheek jawline area 0 04/26/2011 03/27/2012 Pilar Cyst: R side scalp 04/26/2011 012 Genital warts 03/05/2010 03/27/2012 documented as of this encounter (statuses as of 04/30/2022) [facility] History of Past illness Narrative* Problem Noted Date Resolved Date Neck pain 01/15/2021 10/03/2021 Acute right ankle pain 10/18/2020 Displaced fracture of navicu lar (scaphoid) of right foot, initial encounter for closed fracture 07/23/2020 07/06/2021 Foot trauma, right, initial encounter 07/19/2020 07/04/2021 Esophagitis, unspecified 04/07/2012 022 Dermatofibroma of lower extremity 04/26/2011 03/27/2012 Reticular Varicose Vein: R leg prox outer mid an t thigh 04/26/2011 03/27/2012 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 04/26/2011 03/27/2012 Epidermal Cyst: L mid lower cheek jawline area 0 04/26/2011 03/27/2012 Pilar Cyst: R side scalp 04/26/2011 012 Genital warts 03/05/2010 03/27/2012 documented as of this encounter (statuses as of 06/15/2022) [facility] of Past illness Narrative* Problem Noted Date Resolved Date Neck pain 01/15/2021 10/03/2021 Acute right ankle pain 10/18/2020 Displaced fracture of navicu lar (scaphoid) of right foot, initial encounter for closed fracture 07/23/2020 07/06/2021 Foot trauma, right, initial encounter 07/19/2020 07/04/2021 Esophagitis, unspecified 04/07/2012 022 Dermatofibroma of lower extremity 04/26/2011 03/27/2012 Reticular Varicose Vein: R leg prox outer mid an t thigh 04/26/2011 03/27/2012 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 04/26/2011 03/27/2012 Epidermal Cyst: L mid lower cheek jawline area 0 04/26/2011 03/27/2012 Pilar Cyst: R side scalp 04/26/2011 012 Genital warts 03/05/2010 03/27/2012 documented as of this encounter (statuses as of 07/13/2022) [facility] History of Past illness Narrative* Problem Noted Date Resolved Date Neck pain 01/15/2021 10/03/2021 Acute right ankle pain 10/18/2020 Displaced fracture of navicu lar (scaphoid) of right foot, initial encounter for closed fracture 07/23/2020 07/06/2021 Foot trauma, right, initial encounter 07/19/2020 07/04/2021 Esophagitis, unspecified 04/07/2012 022 Dermatofibroma of lower extremity 04/26/2011 03/27/2012 Reticular Varicose Vein: R leg prox outer mid an t thigh 04/26/2011 03/27/2012 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 04/26/2011 03/27/2012 Epidermal Cyst: L mid lower cheek jawline area 0 04/26/2011 03/27/2012 Pilar Cyst: R side scalp 04/26/2011 012 Genital warts 03/05/2010 03/27/2012 documented as of this encounter (statuses as of 08/10/2022) [facility] Diagnosis Onset Date Resolution Status Degenerative disc disease, cervical acute Abdominal pain acute Diarrhea acute Gastroparesis acute Nausea & vomiting acute Diabetes acute Overweight (BMI 25.0-29.9) a cute HTN (hypertension) chronic Hyperlipidemia chronic Presence of insulin pump chr onic DM type 2 (diabetes mellitus, type 2) chronic HTN (hypertension) chronic Presence of insulin pump chr onic Spondylosis of cervical magdalene on without myelopathy or radiculopathy acute Spondylosis of cervical magdalene on without myelopathy or radiculopathy acute [facility] Work Phone: Evaluation note* Diagnosis Onset Date Resolution Status Abdominal pain acute Diarrhea acute Gastroparesis acute Nausea & vomiting acute Diabetes acute Overweight (BMI 25.0-29.9) a cute HTN (hypertension) chronic Hyperlipidemia chronic Presence of insulin pump chr onic DM type 2 (diabetes mellitus, type 2) chronic HTN (hypertension) chronic Presence of insulin pump chr onic Spondylosis of cervical magdalene on without myelopathy or radiculopathy acute Spondylosis of cervical magdalene on without myelopathy or radiculopathy acute Degenerative disc disease, cervical acute Spondylosis of cervical magdalene on without myelopathy or radiculopathy acute Degenerative disc disease, cervical acute Leukocytosis acute Spondylosis of cervical magdalene on without myelopathy or radiculopathy acute [facility] Work Phone: Evaluation note* Diagnosis Type 2 diabetes mellitus with diabetic neuropathy, with long-term current use of insulin (HCC)- Primary S/P cervical spinal fusion Arthrodesis status documented in this encounter [facility] note* Diagnosis Chronic cough- Primary Cough Wheezing Essential hypertension Unspecified essential hypertension Gastroesophageal reflux disease, unspecified whether esophagitis present Type 2 diabetes mellitus with diabetic neuropathy, with long-term current use of insulin (HCC) Hyperlipidemia, unspecified hyperlipidemia type Obesity, Class I, BMI 30-34.9 Obesity, unspecified Encounter for screening mammogram for breast cancer Encounter for screening for lung cancer [facility] Diagnosis Bilateral hip pain- Primary Pain in joint, pelvic region and thigh Gait abnormality Abnormality of gait Degeneration of intervertebral disc of cervical region Restless legs Restless legs syndrome (RLS) [facility] Diagnosis Skin infection- Primary Unspecified local infection of skin and subcutaneous tissue [facility] Diagnosis Sleep apnea, unspecified type- Primary [facility] Diagnosis Chronic cough Cough Wheezing [facility] Diagnosis Chronic cough Cough Wheezing [facility] Diagnosis DEBBIE (obstructive sleep apnea)- Primary Obstructive sleep apnea (adult) (pediatric) Sebaceous cyst of breast, right [facility] Diagnosis Encounter for screening mammogram for breast cancer [facility] Sebaceous cyst of breast, right [facility] Diagnosis Abnormal screening mammogram- Primary Abnormal mammogram, unspecified [facility] Diagnosis Infected sebaceous cyst- Primary Sebaceous cyst [facility] Diagnosis Infected sebaceous cyst- Primary Sebaceous cyst [facility] Diagnosis Status post excision of skin lesion, follow-up exam- Primary Follow-up examination, following other surgery [facility] Diagnosis Onset Date Resolution Status Fusion of spine of cervical region acute Fusion of spine of cervical region acute Fusion of spine of cervical region acute [facility] Work Phone: Evaluation note* Diagnosis Encounter for screening for lung cancer- Primary Former smoker Personal history of tobacco use, presenting hazards to health Cough, unspecified type [facility] Diagnosis Encounter for screening for lung cancer Former smoker Personal history of tobacco use, presenting hazards to health [facility] Diagnosis Acute right hip pain- Primary Pain in joint, pelvic region and thigh Bilateral hip pain Pain in joint, pelvic region and thigh Degeneration of intervertebral disc of cervical region Restless legs Restless legs syndrome (RLS) Other hyperlipidemia Depressive disorder Depressive disorder, not elsewhere classified Essential hypertension Unspecified essential hypertension Need for influenza vaccination Need for prophylactic vaccination and inoculation against influenza Seasonal allergies Allergic rhinitis, cause unspecified Gastroesophageal reflux disease, unspecified whether esophagitis present [facility] Diagnosis Onset Date Resolution Status Diabetes acute Obesity acute Hyperlipidemia chronic Presence of insulin pump chr onic Fusion of spine of cervical region acute [facility] Work Phone: Evaluation note* Diagnosis Primary osteoarthritis of both hips- Primary Primary localized osteoarthrosis, pelvic region and thigh Bilateral hip pain Pain in joint, pelvic region and thigh Acute right hip pain Pain in joint, pelvic region and thigh [facility] Diagnosis RLS (restless legs syndrome)- Primary Restless legs syndrome (RLS) Obstructive sleep apnea (adult) (pediatric) Frequent nocturnal awakening Other sleep disturbances Bilateral hip pain Pain in joint, pelvic region and thigh Degeneration of intervertebral disc of cervical region Restless legs Restless legs syndrome (RLS) [facility] Diagnosis Encounter for gynecological examination (general) (routine) without abnormal findings- Primary Encounter for screening mammogram for malignant neoplasm of breast Other screening mammogram Encounter for vitamin deficiency screening Screening for other and unspecified endocrine, nutritional, metabolic, and immunity disorders [facility] Diagnosis Vulvar lesion- Primary Other specified noninflammatory disorder of vulva and perineum Vulvovaginal condyloma Condyloma acuminatum [facility]* Diagnosis Acute right flank pain- Primary Abdominal pain, unspecified site Bilateral hip pain Pain in joint, pelvic region and thigh Degeneration of intervertebral disc of cervical region Restless legs Restless legs syndrome (RLS) Seasonal allergies Allergic rhinitis, cause unspecified Telangiectasia of skin Other and unspecified capillary diseases [facility] Diagnosis Osteoarthritis of both thumbs [facility] Diagnosis Onset Date Resolution Status Fusion of spine of cervical region acute Diabetes chronic HTN (hypertension) chronic Obesity chronic Presence of insulin pump chr onic [facility] Work Phone: Evaluation note* Diagnosis Obstructive sleep apnea (adult) (pediatric)- Primary RLS (restless legs syndrome) Restless legs syndrome (RLS) Class 1 obesity with body mass index (BMI) of 32.0 to 32.9 in adult, unspecified obesity type, unspecified whether serious comorbidity present [facility] Diagnosis Type 2 diabetes mellitus with diabetic neuropathy, with long-term current use of insulin ([facility])- Primary Seasonal allergies Allergic rhinitis, cause unspecified Depressive disorder Depressive disorder, not elsewhere classified Essential hypertension Unspecified essential hypertension Gait abnormality Abnormality of gait Meralgia paresthetica of left side Meralgia paresthetica documented [facility]* Diagnosis Former cigarette smoker- Primary Personal history of tobacco use, presenting hazards to health Encounter for screening for malignant neoplasm of lung [facility] Diagnosis Onset Date Resolution Status Abdominal pain acute Diarrhea acute Gastroparesis acute Nausea & vomiting acute [facility] Work Phone: Evaluation note* Diagnosis Continuous epigastric pain- Primary Abdominal pain, epigastric Nausea and vomiting, unspecified vomiting type Gastroesophageal reflux disease, unspecified whether esophagitis present Type 2 diabetes mellitus with diabetic neuropathy, with long-term current use of insulin ([facility]) Need for influenza vaccination Need for prophylactic vaccination and inoculation against influenza [facility] Diagnosis Class 1 obesity- Primary Vitamin D deficiency Unspecified vitamin D deficiency DEBBIE (obstructive sleep apnea) mild; moderate when supine. Obstructive sleep apnea (adult) (pediatric) Gastroparesis Essential hypertension Unspecified essential hypertension Type 2 diabetes mellitus with diabetic neuropathy, with long-term current use of insulin ([facility]) Gastroesophageal reflux disease, unspecified whether esophagitis present Dietary counseling and surveillance Dietary surveillance and counseling Body mass index 30.0-30.9, adult Body Mass Index 30.0-30.9, adult [facility]* Diagnosis Depressive disorder Depressive disorder, not elsewhere classified [facility]* Diagnosis Medicare annual wellness visit, subsequent- Primary Routine general medical examination at a health care facility Syncope, unspecified syncope type [facility] Diagnosis Onset Date Resolution Status Gastroparesis acute Abdominal pain chronic Diarrhea chronic Nausea & vomiting chronic Gastroparesis acute Abdominal pain chronic Diarrhea chronic Nausea & vomiting chronic Dysuria acute CKD (chronic kidney disease) stage 3, GFR 30-59 ml/min chronic Diabetes chronic Insulin pump titration chron ic Obesity chronic Presence of insulin pump [facility] Work Phone: Evaluation note* Diagnosis Essential hypertension Unspecified essential hypertension Other hyperlipidemia documented in this encounter [facility] note* Diagnosis Encounter for screening mammogram for breast cancer documented in this encounter [facility] note* Diagnosis Onset Date Resolution Status Dysuria acute CKD (chronic kidney disease) stage 3, GFR 30-59 ml/min chronic Diabetes chronic Obesity chronic Abdominal pain chronic Chronic constipation chronic Diarrhea chronic Gastroparesis chronic Nausea & vomiting chronic CKD (chronic kidney disease) stage 3, GFR 30-59 ml/min chronic Diabetes chronic HTN (hypertension) chronic Insulin pump titration chron ic Obesity chronic Presence of insulin pump [facility] Work Phone: Evaluation note* Diagnosis Seizure-like activity (HCC)- Primary Other convulsions documented [facility] encounter [facility]* Diagnosis Seizure-like activity (HCC) Other convulsions documented in this encounter [facility]* Diagnosis Seizure-like activity (HCC)- Primary Other convulsions documented in this encounter [facility]* Diagnosis Seizure-like activity (HCC)- Primary Other convulsions Gastroesophageal reflux disease, unspecified whether esophagitis present Seasonal allergies Allergic rhinitis, cause unspecified Postural dizziness Dizziness and giddiness Restless legs Restless legs syndrome (RLS) documented in this encounter [facility]* Diagnosis Convulsions, unspecified convulsion type (HCC)- Primary Seizure-like activity (HCC) Other convulsions documented in this encounter [facility] note* Diagnosis Onset Date Resolution Status CKD (chronic kidney disease) stage 3, GFR 30-59 ml/min chronic Diabetes chronic HTN (hypertension) chronic Insulin pump titration chron ic Obesity chronic Presence of insulin pump [facility] Work Phone: Evaluation note* Diagnosis Screening for malignant neoplasm of the rectum- Primary History of colonic polyps Personal history of colonic polyps Screening for colon cancer Special screening for malignant neoplasms, colon documented in this encounter [facility] note* Diagnosis Strep throat- Primary Streptococcal sore throat Sore throat Acute pharyngitis [facility] Diagnosis Convulsions, unspecified convulsion type (HCC) documented [facility]* Diagnosis DEBBIE (obstructive sleep apnea)- Primary Obstructive sleep apnea (adult) (pediatric) RLS (restless legs syndrome) Restless legs syndrome (RLS) Essential hypertension Unspecified essential hypertension Restless legs Restless legs syndrome (RLS) [facility]* Diagnosis Bilateral hip pain Pain in joint, pelvic region and thigh [facility] Diagnosis Medicare annual wellness visit, subsequent- Primary Routine general medical examination at a health care facility Other hyperlipidemia Restless legs Restless legs syndrome (RLS) Essential hypertension Unspecified essential hypertension Gastroesophageal reflux disease, unspecified whether esophagitis present Depressive disorder Depressive disorder, not elsewhere classified Encounter for screening examination for other mental health and behavioral disorders Type 2 diabetes mellitus with diabetic neuropathy, with long-term current use of insulin (HCC) Tubular adenoma of colon Benign neoplasm of colon Encounter for screening mammogram for malignant neoplasm of breast Other screening mammogram Need for influenza vaccination Need for prophylactic vaccination and inoculation against influenza DEBBIE (obstructive sleep apnea) mild; moderate when supine. Obstructive sleep apnea (adult) (pediatric) Postural dizziness Dizziness and giddiness [facility] Diagnosis Vulvar lesion- Primary Other specified noninflammatory disorder of vulva and perineum Condyloma acuminatum of vulva Condyloma acuminatum [facility] Diagnosis Encounter for screening for malignant neoplasm of respiratory organs- Primary Special screening for malignant neoplasm of the respiratory organs Personal history of tobacco use Personal history of tobacco use, presenting hazards to health [facility] Diagnosis Multiple lung nodules- Primary Other nonspecific abnormal finding of lung field Encounter for screening for lung cancer Former tobacco use Personal history of tobacco use, presenting hazards to health Persistent cough for 3 weeks or longer [facility] Diagnosis Chronic cough- Primary Cough [facility] Diagnosis Encounter for screening for malignant neoplasm of respiratory organs Special screening for malignant neoplasm of the respiratory organs Personal history of tobacco use Personal history of tobacco use, presenting hazards to health [facility] Diagnosis Essential hypertension- Primary Unspecified essential hypertension Restless legs Restless legs syndrome (RLS) Depressive disorder Depressive disorder, not elsewhere classified Other hyperlipidemia Type 2 diabetes mellitus with diabetic neuropathy, with long-term current use of insulin (HCC) Chronic cough Cough DEBBIE (obstructive sleep apnea) mild; moderate when supine. Obstructive sleep apnea (adult) (pediatric) documented in this encounter [facility]* Diagnosis Chronic cough Cough documented in this encounter [facility] note* Diagnosis Chronic cough- Primary Cough documented in this encounter [facility]* Diagnosis Chronic cough- Primary Cough documented in this encounter [facility]* Diagnosis Chronic cough- Primary Cough Post-nasal drip Postnasal drip Gastroesophageal reflux disease, unspecified whether esophagitis present Former tobacco use Personal history of tobacco use, presenting hazards to health documented in this encounter [facility]* Diagnosis Chronic cough- Primary Cough Abnormal lung function test Nonspecific abnormal results of pulmonary system function study Impaired speech articulation Other developmental speech or language disorder Vasomotor rhinitis Allergic rhinitis, cause unspecified Former tobacco use Personal history of tobacco use, presenting hazards to health Gastroesophageal reflux disease, unspecified whether esophagitis present Encounter for allergy testing Diagnostic skin and sensitization tests documented in this encounter [facility] noteNo assessment information availableWC[facility] Work Phone: History and physical note Author Feltno Friend [facility] November 04, 2023 9:51am Note Date/Time November 04, 2023 9:51 am [facility] Medical Records Department [address] [place] [id number] History & Physical Exam 11/04/23 0951 MR#: [id number] Acct: [id number] Name: STEFANIE SIMMONS Rep #:[id number] : 1960 63 From: Felton Brown DO PCP: Dr. Zachary Toney MD Status:R [facility] Location: [place] [address] History and Physical Date of Admission: 11/04/23 63 F who presents to the office today for Prior workup: ? CT abd/pel 05.08.21 adrenal adenoma *BGI established 05.22.21 with abdominal pain, N/V, early satiety and intermittent loose stools. 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 ? EGD 05.28.21 small sliding hiatal hernia; gastric antrum erosions;duodenitis, Mary gland hyperplasia. OV 06.10.21 with improvement of symptoms: loose stools have resolved, intermittent nausea without emesis, abdominal pain or bloating. ? GET 06.11.21 32.83 minutes (). OV 08.12.21 with ongoing improvement of symptoms. Upper abdominal discomfort haslessened. Insulin pump placed last Wednesday. [facility] ED 05.05.23 abdominal pain, N/V and some weight loss of 15-20lbs. Discharged with Phenergan and reglan and Zofran ? CT abd/pel IV only small bowel wall thickening, enterocolitis OV 05.18.23 she has had a return of nausea and emesis. BM have been normal with rare loose stools; continues with Linzess. Her insulin pump has been removed andshe is no longer having her DMII managed (Dr. Lucie Suazo cdl service technician who has been working at and received approval for closed loop monitoring); Dr. Suazo updated regarding symptoms and possibility of islet transplantation appropriateness. Start doxycycline ? GET 05.24.23 25.44minutes () Contact 05.28.23 with results: continue workup with endocrinology to manage DMII and in-turn GI symptoms. OV 08.10.23 continues to have nausea and limited emesis with abdominal pain/discomfort. Hgb A1c 14.5. She now has her insulin pump reattached and reports her sugars have been within her prescribed blood sugar range. Urgent loose stools with urgency related incontinence has been an issue since start of Linzess 145mcg; prior to use of Linzess she did not have urgency or urgency incontinence. ROS Const Constitutional: Positive for headache(s) and weakness ENT ENT: Positive for ear or mastoid pain and headache(s) Cardio Cardiology: Positive for leg pain with exertion Gastro GI: Positive for abdominal pain Genitourinary-Female: Positive for urinary incontinence Musc Musculoskeletal: Positive for joint pain, joint swelling, muscle cramps, muscle weakness, numbness, stiffness, tingling, Arthritis, restless legs, leg pain at night and leg pain with exertion Neuro Neurology: Positive for weakness, headache(s), numbness, tingling and restless legs Psych Psychiatric: Positive for anxiety and Positive for depression Exam Const General: cooperative, healthy appearing, comfortable and no acute distress Nutritional Appearance: obese Orientation: alert, awake and oriented x3 HENMT Head: normal to inspection Ears: hearing grossly normal bilaterally Nose: external nose normal Face and sinus: normal facial exam Eyes General: appearance normal, both eyes and all related structures Alignment and Position: alignment normal Sclera: sclerae normal Neck Neck: normal visual inspection Carotids: normal carotid upstroke Chest Chest palpation & inspection: normal inspection of the chest Resp Effort & Inspection: normal respiratory effort, able to speak in complete sentences, symmetric chest movement, normal respiratory pattern, no audible wheezes and no cough Auscultation: Bilateral: Clear to Auscultation Cardio Rate: regular rate Rhythm: regular rhythm Heart Sounds: S1 normal and S2 normal Bruits: no carotid bruits GI Inspection: normal to inspection and obesity Musc Cervical Spine: normal cervical lordosis Thoracic/Lumbar Spine: thoracic and lumbar spine normal to inspection Skin General: no rashes or lesions noted Lesions: no lesions Rashes: no rashes Trauma: no lacerations or abrasions Wounds: no wounds Neuro General: patient alert, patient awake and patient oriented x3 Cognition: normal cognition Speech: speech normal Gait: normal gait Extrem General: normal to inspection and no pedal edema Psych Appearance: grossly normal Mental Status: mental status grossly normal Mood: congruent mood Affect: normal affect Speech and Movement: speech and movement normal Attitude: cooperative Thought Process: normal Thought Content: normal Judgment: judgment good Quality Reporting Tobacco Screening ([facility] 138) Smoking Status: Former smoker Assessment and Plan Assessment and Plan (1) Chronic constipation: Status: Chronic (2) Nausea & vomiting: Status: Chronic Qualifiers: Vomiting type: unspecified Qualified Code(s): R11.2 - Nausea with vomiting, unspecified Plan: Nausea vomiting secondary to gastroparesis. She was treated with PPI therapy and Carafate therapy initial course of Reglan therapy she is doing okay from the standpoint hopefully should be able to maintain good glucose control and not have a recurrence of this problem. Consider referral for Islet cell transplantation. (3) Gastroparesis: Status: Chronic Plan: Her glucose is under much better control with the Dexcom insulin pump. She is not having any abdominal pain any cramping. She is watching what she eats has better control of her glucose and feels so much better. (4) Diarrhea: Status: Chronic Qualifiers: Diarrhea type: functional diarrhea Qualified Code(s): K59.1 - Functional diarrhea Plan: Diarrhea secondary to dumping this is greatly improved with history of glucose control which wanted to mainstays of treatment. (5) Abdominal pain: Status: Chronic Qualifiers: Abdominal location: epigastric Qualified Code(s): R10.13 - Epigastric pain Plan: Abdominal pain associated with constipation and incomplete evacuation. She willcontinue with Linzess for chronic idiopathic constipation we will also give her doxycycline 1 mg p.o. twice daily for associated small bacterial overgrowth withconstipation in the setting type 1 diabetes. I have examined the patient and the H&P has been reviewed. There are no clinicalchanges since date of exam. 11/04/23 6788 <Electronically signed by Felton Brown DO> Cosigner Signature (if applicable): CC: Dr. Zachary Toney MD; Felton Brown DO~ Signed [facility] Work Phone: Hospital Discharge instructions Additional Instructions You have muscle spasms on your right side of your welcome middle back. Hot shower, whirlpool, massage. Skelaxin which is most relaxant 1 pill 3 times a day for a week. This should progressively improve. If not follow-up with your primary care physician.[facility] Work Phone: Hospital Discharge instructionsAdditional Instructions You have a urinary tract infection. Your blood work and CT scan look normal with no signs of kidney stone. Alternate Tylenol and Motrin as needed for pain. If symptoms worsen return to the ER.[facility] Work Phone: Progress note Author Christa Villarreal [facility] Note Date/Time May 30, 2025 11 :11am [facility] [address] [place] [address]. [address] [place] [address] OFFICE VISIT Date of Service: 05/30/25 MR#: [id number] Acct: [id number] Name: STEFANIE SIMMONS Rep #: [id number] : 1960 Provider: SIMA Villarreal Age/Sex: 64/F Location: [facility] Status: Signed Intake Vital Signs 11/29/24 10:36 04/10/25 11:41 05/30/25 10:36 Height 5 ft 3 in 5 ft 3 in 5 ft 3 in Weight: 159 lb BMI 28.1 BP 136/81 H Blood Pressure Location Lt brachial Position Sitting Pulse 60 Pulse Source Monitor Pulse Oximetry (%) 97 Oxygen Delivery Method room air Intake Visit Reasons: 6 M FU Chief Complaint: f/u diabetes Featherer Required: No Accompanied by: Granddaughter Is patient in pain?: No Allergies simvastatin (From Zocor) Allergy (Verified 05/30/25 10:36) Swelling Sulfa (Sulfonamide Antibiotics) Allergy (Verified 05/30/25 10:36) Swelling Medications ?Medication ?Instructions ?Recorded ?Confirmed ?Type lisinopril 20 1 tab PO DAILY bp 09/22/19 1 History mg-hydrochlorothiazide 12.5 mg tablet sertraline 100 mg tablet 100 mg PO DAILY depression 0 09/22/19 05/30/25 History omeprazole 40 mg capsule,delayed 40 mg PO BID gerd 08/2005/30/25 History release trazodone 100 mg tablet 100 mg PO QHS insomnia 12/0905/30/25 History atorvastatin 40 mg tablet 40 mg PO QHS 05/03/24 History blood sugar diagnostic (Accu-Chek #100 ea 05/24/2409/23 Rx Guide test strips) cholecalciferol (vitamin D3) 100 2,000 unit PO BID 05/30/25 History mcg (4,000 unit) capsule pen needle, diabetic 32 gauge x #100 ea 11/29/2405/30 Rx (BD Ultra-Fine Sheri Pen Needle) insulin lispro 100 unit/mL 100 unit continuous subcuta neous 12/06/24 05/30/25 Rx subcutaneous solution infusion .continuous #90 mL blood-glucose sensor (Dexcom G7 #9 ea 12/20/24 5 Rx Sensor device) cephalexin 500 mg capsule 500 mg PO Q12 #14 CAPSULES 0 04/05/25 05/30/25 Rx estradiol 0.01% (0.1 mg/gram) 1 g vaginal 3XW #42.5 gr ams 04/10/25 05/30/25 Rx vaginal cream gabapentin 300 mg capsule 300 mg PO TID 04/10/2505/30 History hyoscyamine sulfate 0.125 mg tablet 0.125 mg PO BID-QI D PRN dyspepsia 04/10/25 05/30/25 History mirabegron 50 mg tablet,extended 50 mg PO QDAY 5 05/30/25 History release 24 hr (Myrbetriq) mirabegron 50 mg tablet,extended 50 mg PO QDAY #90 tab s 04/10/25 05/30/25 Rx release 24 hr (Myrbetriq) lubiprostone 8 mcg capsule 8 mcg PO BID #60 caps 04/1805/30/25 Rx (Amitiza) empagliflozin 25 mg tablet 25 mg PO QAM #30 tabs 05/2105/30/25 Rx (Jardiance) PFS Medical History Adrenal adenoma Vaginal atrophy Mixed incontinence Nocturia Overactive bladder Cystocele, midline Insulin dependent diabetes mellitus Ambulates with cane History of renal disease GERD (gastroesophageal reflux disease) Obesity Presence of pessary Presence of insulin pump Gastroparesis Diabetes Wears glasses Wears dentures Depression Anxiety Marijuana use Thyroid disease Arthritis Fatty liver High cholesterol Restless legs Injury of head and neck Dietary restriction History of hiatal hernia Former smoker Leg cramps History of edema History of stress test Cardiology follow-up encounter Diarrhea Nausea & vomiting Abdominal pain Diarrhea Nausea Acute right flank pain Acute hypokalemia Hyperlipidemia HTN (hypertension) Surgical History History of esophagogastroduodenoscopy (EGD) Hx of colonoscopy History of esophagogastroduodenoscopy (EGD) History of hysterectomy H/O foot surgery History of hip surgery History of rotator cuff surgery History of left knee surgery h/o left hand surgery Family History Mother Hypertension Lupus Glaucoma Arthritis Neuropathy Brother Diabetes Hypertension Hyperlipemia Other Heart disease Osteoporosis Social History household members: other details: daughter housing: house Smoking Status: Former smoker Tobacco: How many years used: 35 alcohol intake: never what type of physical activity do you participate in: none do you feel safe at home: Yes HPI HPI Chief Complaint: f/u diabetes Details: STEFANIE SIMMONS, is a 64 F who presents to the office today for evaluation and management of diabetes. A1C today is 6.2%, improved from 11/29/24 at 6.8%. She has lost 13 lbs since that time. Currently using Tslim insulin pump with Dexcom G7. Insulin pump downloaded and reviewed- she does not currently have her CGM linkedto her pump. She is having recurrent lows. She did not realize that her Dexcom was not linked to her pump, she notes that she has not been putting sensor number into pump, only her phone. Denies any significant episode of hypoglycemia that has required assistance fromothers. BP controlled. Currently taking lisinopril-HCTZ 20-12.5 mg once daily. She has CKD with microalbuminuria. She is taking SGLT2. She is taking a daily statin. Hx of vitamin D deficiency. She is taking daily vitamin D3 2,000 iu once daily. She complains of daily dull headaches for the last 2 months. She does not drink water, she only drinks tea and milk. She is taking Myrbetriq for OAB. Reports persistent dry mouth. She is due for labs. Denies any acute concerns. ROS Const Constitutional: Positive for weight change; No fatigue, weakness or change in appetite Eyes Eyes: No change in vision ENT ENT: No hearing loss, nasal congestion or difficulty swallowing Cardio Cardiology: No chest pain at rest, chest pain with exertion or shortness of breath Musc Musculoskeletal: No numbness Neuro Neurology: No weakness, memory loss or numbness Psych Psychiatric: No change in appetite, No memory loss and No Thoughts of harming yourself/Others Resp Respiratory: No cough or chest congestion Gastro GI: No difficulty swallowing Genitourinary-Female: No burning urination Skin Skin: No itchy eyes or wounds Endo Endocrine: Positive for weight change; No fatigue Aller/Imm Allergy/Immunologic: No itchy eyes Exam Const General: cooperative, healthy appearing, comfortable and no acute distress Nutritional Appearance: overweight Orientation: alert, awake and oriented x3 HENMT Head: normal to inspection Ears: hearing grossly normal bilaterally Nose: external nose normal Face and sinus: normal facial exam Eyes General: appearance normal, both eyes and all related structures Alignment and Position: alignment normal Sclera: sclerae normal Neck Neck: normal visual inspection Chest Chest palpation & inspection: normal inspection of the chest Resp Effort & Inspection: normal respiratory effort, able to speak in complete sentences, symmetric chest movement, normal respiratory pattern, no audible wheezes and no cough Auscultation: Bilateral: Clear to Auscultation Cardio Rate: regular rate Rhythm: regular rhythm Heart Sounds: S1 normal and S2 normal GI Inspection: normal to inspection Musc Cervical Spine: normal cervical lordosis Thoracic/Lumbar Spine: thoracic and lumbar spine normal to inspection Skin General: no rashes or lesions noted Lesions: no lesions Rashes: no rashes Trauma: no lacerations or abrasions Wounds: no wounds Neuro General: patient alert, patient awake and patient oriented x3 Cognition: normal cognition Speech: speech normal Gait: normal gait Extrem General: normal to inspection and no pedal edema Psych Appearance: grossly normal Mental Status: mental status grossly normal Mood: congruent mood Affect: normal affect Speech and Movement: speech and movement normal Attitude: cooperative Thought Process: normal Thought Content: normal Judgment: judgment good Results POC A1C POC A1C 6.2 % Last Edit by Cailin Ivey on 05/30/25 10:46 Assessment and Plan Assessment and Plan (1) Type 1 diabetes mellitus with hyperglycemia: Status: Chronic Plan: Chronic- controlled. Longitudinal care provided. G2211. I reviewed with the patient the risk of developing and worsening of diabetes complications including retinopathy, neuropathy, nephropathy, heart attack, stroke, amputation, and sudden . Diabetes education provided. A1C at goal: <7.5%. Insulin pump download and settings reviewed in detail with patient. I re educated her on how to link her CGM with her pump. This will improve lows. Emphasized importance of accurately counting and reporting carbohydrates. Notify office of persistently high/low blood sugars. CGM: she is checking blood sugar 4x/day, she is on a continuous infusion insulinpump, she uses blood sugar readings to titrate insulin dose, she is at risk of hypoglycemia. Check CMP, lipid panel, TSH, M:C ratio and vitamin D- I will interpret and communicate results with patient. Follow up in 6 months. (2) Presence of insulin pump: Status: Chronic Plan: Plan same as #1. (3) Insulin pump titration: Status: Chronic Plan: No changes made to insulin pump settings at today's appt. (4) HTN (hypertension): Status: Chronic Qualifiers: Hypertension type: primary hypertension Qualified Code(s): I10 - Essential (primary) hypertension Plan: Chronic- controlled. Continue lisinopril-HCTZ 20-12.5 mg once daily. SGLT2 likely aiding in control. Avoid dietary sodium. Will continue to monitor. (5) CKD (chronic kidney disease) stage 3, GFR 30-59 ml/min: Status: Chronic Qualifiers: Chronic kidney disease stage 3 subtype: stage 3a (GFR 45-59) Qualified Code(s): N18.31 - Chronic kidney disease, stage 3a Plan: Chronic- stability unknown. -CMP, M:C Maintain glycemic control. Maintain BP control. Assure adequate hydration. Avoid NSAID. Continue ACEI. Continue SGLT2. (6) Microalbuminuria: Status: Chronic Plan: Chronic- stability unknown. Plan same as #5. (7) Vitamin D deficiency: Status: Chronic Plan: Chronic- stability unknown. -vitamin D Continue vitamin D3 2,000 iu once daily. Will titrate dose if indicated by labs. Reviewed importance of adequate vitamin D. (8) Overweight: Status: Chronic Plan: Chronic- improving. Encouraged a diet that contains high quality carbohydrates rich in fiber. (9) Headache: Status: Acute Qualifiers: Headache type: other headache syndrome Qualified Code(s): G44.89 - Other headache syndrome Plan: Acute/chronic. I suspect she is chronically dehydrated with SGLT2, diuretic, and beta adrenergic agonist and poor PO intake. Assure adequate hydration. Follow up with PCP if symptoms do not improve in 10-14 quiñones with adequate hydration. Discussed red flag symptoms requiring urgent medical attention. I have spent [33] minutes today reviewing labs, records and history. Time includes coordinating care, interpretation of tests, discussion with patient's other health care providers via telephone. This also includes time I spent with the patient for exam, treatment plan and education as well as documenting clinical information. Orders: Orders POC A1C Today E10.65 - Type 1 diabetes mellitus with hyperglycemia Lipid Profile Today E10.65 - Type 1 diabetes mellitus with hyperglycemia Vitamin D,25 Hydroxy Today E10.65 - Type 1 diabetes mellitus with hyperglycemia, E55.9 - Vitamin D deficiency, unspecified Microalb:Creat Ratio,Random UR Today E10.65 - Type 1 diabetes mellitus with hyperglycemia Comprehensive Metabolic Profil Today E10.65 - Type 1 diabetes mellitus with hyperglycemia Thyroid Stim Hormone (TSH) Today E10.65 - Type 1 diabetes mellitus with hyperglycemia Plan Details Follow Up: 6 Months Coding Level of Care Code Off vis,est,level 4 Extra Time Spent Extra Time Spent Extra Time Spent: G2211 Diagnoses Type 1 diabetes mellitus with hyperglycemia E10.65 Presence of insulin pump Z96.41 Insulin pump titration Z46.81 Primary hypertension I10 Hypertension type: primary hypertension Stage 3a chronic kidney disease N18.31 Chronic kidney disease stage 3 subtype: stage 3a (GFR 45-59) Microalbuminuria R80.9 Vitamin D deficiency E55.9 Overweight E66.3 Other headache syndrome G44.89 Headache type: other headache syndrome Additional Codes Extra Time Spent - Extra Time Spent: G2211 (G2211) 05/30/25 1225 <Electronically signed by Christa GAO> Date _ Christa BUNNC Cosigner Signature: Date (if applicable) CC: Dr. Zachary Toney MD ~ [place] [employer] Work Phone: Reason for referral (narrative)* Outpatient Procedure (Routine) - Authorized Specialty Diagnoses / Procedures Referred By Samy morris Referred To [facility] Diagnoses Chronic cough Wheezing Procedures LUNG DIFFUSION CAPACITY (DLCO) DIFFUSING CAPACITY Priyanka Peoples APRN.FORMING MACHINE TENDER [address] [place] [address] [facility] [place] [address] Referral ID Status Reason Start Date Expiration Date Visits Requested Visits Authorized [id number] Authorized Auto-Generat ed Referral 02/25/2022 03/27/2023 1 1 * Outpatient Procedure (Routine) - Authorized Specialty Diagnoses / Procedures Referred By Contac t Referred To Contact [facility] Diagnoses Chronic cough Wheezing Procedures LUNG VOLUMES PLETHYSMOGRAPHY LUNG VOLUMES W/WO AIRWAY RESIST Priyanka Peoples APRN.FORMING MACHINE TENDER [address] [place] [address] [facility] [address] [place] [address] Referral ID Status Reason Start Date Expiration Date Visits Requested Visits Authorized [id number] Authorized Auto-Generat ed Referral 02/25/2022 08/29/2022 1 1 * Outpatient Procedure (Routine) - Authorized Specialty Diagnoses / Procedures Referred By Contac t Referred To Contact [facility] Diagnoses Chronic cough Wheezing Procedures SPIROMETRY - BASELINE AND POST DILATOR BRNCDILAT RSPSE SPMTRY PRE&POST-BRNCDILAT ADMN Priyanka Peoples APRN.FORMING MACHINE TENDER [address] [place] [address] [facility] [address] [place] [address] Referral ID Status Reason Start Date Expiration Date Visits Requested Visits Authorized [id number] Authorized Auto-Generat ed Referral 02/25/2022 03/27/2023 1 1 * Diagnostic Procedure Only (Routine) - Authorized Specialty Diagnoses / Procedures Referred By Contac t Referred To Contact [facility] Diagnoses Encounter for screening mammogram for breast cancer Procedures SIMEON SCREENING SCREENING MAMMOGRAPHY BI 2-VIEW BREAST INC CAD Priyanka Peoples APRN.FORMING MACHINE TENDER [address] [place] [address] [facility] [address] [place] [phone] Referral ID Status Reason Start Date Expiration Date Visits Requested Visits Authorized [id number] Authorized Auto-Generat ed Referral 02/25/2022 03/27/2023 1 1 [facility] for referral (narrative)* Diagnostic Procedure Only (Routine) - Closed Specialty Diagnoses / Procedures Referred By Contac t Referred To Contact [facility] Diagnoses Encounter for screening mammogram for breast cancer Procedures SIMEON SCREENING SCREENING MAMMOGRAPHY BI 2-VIEW BREAST INC CAD Priyanka Peoples APRN.FORMING MACHINE TENDER [address] [place] [address] [facility] Imaging [address] [place] [address] Referral ID Status Reason Start Date Expiration Date V isits Requested Visits Authorized [id number] Closed Auto-Generate d Referral 02/25/2022 03/27/2023 1 1 [facility] for referral (narrative)* Diagnostic Procedure Only (Routine) - Authorized Specialty Diagnoses / Procedures Referred By Contac t Referred To Contact [facility] Diagnoses Abnormal screening mammogram Procedures US BREAST LTD RT US BREAST UNI REAL TIME WITH IMAGE LIMITED Priyanka Peoples APRN.FORMING MACHINE TENDER [address] [place] [address] [facility] Imaging [address] [place] [address] Referral ID Status Reason Start Date Expiration Date Visits Requested Visits Authorized [id number] Authorized Auto-Generat ed Referral 03/24/2022 04/23/2023 1 1 * Diagnostic Procedure Only (Routine) - Authorized Specialty Diagnoses / Procedures Referred By Contac t Referred To Contact [facility] Diagnoses Abnormal screening mammogram Procedures SIMEON DIAGNOSTIC RT DIAGNOSTIC MAMMOGRAPHY COMPUTER-AIDED DETCJ UNI Priyanka Peoples APRN.FORMING MACHINE TENDER [address] [place] [address] Br Imaging [address] [place] [address] Referral ID Status Reason Start Date Expiration Date Visits Requested Visits Authorized [id number] Authorized Auto-Generat ed Referral 03/24/2022 04/23/2023 1 1 [facility] for referral (narrative)* Diagnostic Procedure Only (Routine) - Pending Review Specialty Diagnoses / Procedures Referred By Contac t Referred To Contact [facility] Diagnoses Encounter for screening mammogram for malignant neoplasm of breast Procedures SIMEON SCREENING W JUAN A SCREENING DIGITAL BREAST TOMOSYNTHESIS BI SCREENING MAMMOGRAPHY BI 2-VIEW BREAST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 Immunizations 05/08/2023 Flu vaccination Reason Comments New Patient Evaluation Reason Onset Date Comments Refill Request 05/26/2023 Reason Comments request for medications Reason Comments Medicare Wellness Exam Reason Onset Date Comments Allied Health Visit 06/29/2023 Medication A dherence Outreach Reason Onset Date Comments Refill Request 06/29/2023 Reason Comments Refill Request Reason Onset Date Comments Refill Request 09/24/2023 Reason Comments Follow Up Reason Comments Radiology CT Specialty Diagnoses / Procedures Referred By Contac t Referred To Contact CT IMAGING Diagnoses Seizure-like activity (HCC) Procedures CT BRAIN WO IVCON CT HEAD/BRAIN W/O CONTRAST MATERIAL Zachary Toney MD [address] [place] [address] Ct Imaging [place] [address] Referral ID Status Reason Start Date Expiration Date V isits Requested Visits Authorized [id number] Closed Auto-Generate d Referral 11/04/2023 12/03/2024 1 1 Reason Comments order question on EEG Reason Comments 2 week follow-up Reason Comments Seizures Sz during colonoscop y/egd, lightheaded/dizzy, feels like she's going to pass out. New Patient Specialty Diagnoses / Procedures Referred By Contac t Referred To Contact Neurology Diagnoses Seizure-like activity (HCC) Procedures CONSULT TO NEUROLOGY OFFICE/OUTPATIENT NEW HIGH MDM 60 MINUTES Zachary Toney MD [address] [place] [address] Referral ID Status Reason Start Date Expiration Date V isits Requested Visits Authorized [id number] Closed PCP Requested Referral 11/04/2023 11/03/2024 1 1 Reason Comments Right Shoulder Pain Reason Onset Date Comments Population Health Navigation Outreach 01/27/2024 Chance Med Adherence Reason Onset Date Comments Population Health Navigation Outreach 02/23/2024 Chance [facility] CURRENT ROSTER workbench - AWV, Care gaps, HCC gap closure - [place] [facility] Reason Comments Sore Throat Fever, body aches x 3 days, exposed to strep Specialty Diagnoses / Procedures Referred By Samy t Referred To Contact MR IMAGING Diagnoses Convulsions, unspecified convulsion type (HCC) Procedures MRI BRAIN WO IVCON MRI BRAIN BRAIN STEM W/O CONTRAST MATERIAL Sebastián Antoine MD [address] [phone] Mr Imaging [place] [address] Referral ID Status Reason Start Date Expiration Date V isits Requested Visits Authorized [id number] Closed Auto-Generate d Referral 11/24/2023 12/23/2024 1 1 Reason Comments Follow Up RLS, DEBBIE Reason Comments patient insurance calling requesting Dex com G 7 Reason Onset Date Comments Medicare Wellness Exam questions about diabetes supplies Immunizations 06/16/2024 Flu vaccination Reason Comments Left arm pain Reason Comments Vaginal Problem Reason Comments Lung Nodules New Consult - [facility] Specialty Diagnoses / Procedures Referred By Contac t Referred To Contact CT IMAGING Diagnoses Encounter for screening for malignant neoplasm of respiratory organs Personal history of tobacco use Procedures CT LUNG SCREEN WO IVCON COMPUTED TOMOGRAPHY THORAX LW DOSE LNG CA Renuka Todd YOUTH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 [address] [place] [address] Phone: tel: fax: [facility] IMAG[facility] [place] [address] Referral ID Status Reason Start Date Expiration Date V isits Requested Visits Authorized [id number] Closed Auto-Generate d Referral 10/20/2024 11/19/2025 1 1 Specialty Diagnoses / Procedures Referred By Contac t Referred To Contact [facility] Diagnoses Chronic cough Procedures LUNG VOLUMES PLETHYSMOGRAPHY LUNG VOLUMES W/WO AIRWAY RESIST Marisa Bull, YOUTH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 [address] [place] [address] Phone: tel: fax: [facility] [address] [place], [place] [id number] Referral ID Status Reason Start Date Expiration Date Visits Re quested Visits Authorized [id number] Closed 01/29/2025 08/29/2025 1 1 Specialty Diagnoses / Procedures Referred By Contac t Referred To Contact [facility] Diagnoses Chronic cough Procedures LUNG DIFFUSION CAPACITY (DLCO) DIFFUSING CAPACITY Marisa Bull, YOUTH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 [address] [place] [address] Phone: tel: fax: [facility] [address] [place] [address] Referral ID Status Reason Start Date Expiration Date V isits Requested Visits Authorized [id number] Closed Auto-Generate d Referral 12/06/2024 01/05/2026 1 1 Specialty Diagnoses / Procedures Referred By Contac t Referred To Contact [facility] Diagnoses Chronic cough Procedures NITRIC OXIDE, EXHALED NITRIC OXIDE GAS DETERMINATION Marisa Bull, YOUTH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 [address] [place] [address] Phone: tel: fax: [facility] [address] [place] [address] Referral ID Status Reason Start Date Expiration Date V isits Requested Visits Authorized [id number] Closed Auto-Generate d Referral 12/06/2024 01/05/2026 1 1 Specialty Diagnoses / Procedures Referred By Contac t Referred To Contact [facility] Diagnoses Chronic cough Procedures SPIROMETRY WITH DILATOR IF OBSTRUCTED BRNCDILAT RSPSE SPMTRY PRE&POST-BRNCDILAT ADMN Marisa Bull, YOUTH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 [address] [place] [address] Phone: tel: fax: [facility] [address] [facility] [place] [address] Referral ID Status Reason Start Date Expiration Date V isits Requested Visits Authorized [id number] Closed Auto-Generate d Referral 12/06/2024 01/05/2026 1 1 Reason Comments new patient Reason Comments Cough Specialty Diagnoses / Procedures Referred By Contac t Referred To Contact Allergy Diagnoses Chronic cough Procedures CONSULT TO ALLERGY/IMMUNOLOGY OFFICE/OUTPATIENT [facility] [address] [place] [address] [place] [address] Phone: tel: fax: Referral ID Status Reason Start Date Expiration Date V isits Requested Visits Authorized [id number] Closed PCP Requested Referral 02/12/2025 02/12/2026 1 1 Reason Comments Med Change Request Goals (unrecognized section and content) Goals may be documented in a n alternate sectionGoals may be documented in an alternate sectionGoals may be documented in an alternate sectionGoals may be documented in an alternate sectionGoals may be documented in an alternate sectionGoals may be documented in an alternate sectionGoals may be documented in an alternate sectionGoals may be documented in an alternate sectionGoals may be documented in an alternate sectionGoals may be documented in an alternate section Source Comments (unrecognize d section and content) In the event this informatio n is protected by the Federal Confidentiality of Alcohol and Drug Abuse Patient Records regulations: The Federal rules restrict any use of the information to criminally investigate or prosecute any alcohol or drug abuse patient.[facility] Hospital[facility] the event this information is protected by the Federal Confidentiality of Alcohol and Drug Abuse Patient Records regulations: The Federal rules restrict any use of the information to criminally investigate or prosecute any alcohol or drug abuse patient.[facility] HospitalIn the event this information is protected by the Federal Confidentiality of Alcohol and Drug Abuse Patient Records regulations: The Federal rules restrict any use of the information to criminally investigate or prosecute any alcohol or drug abuse patient.[facility] Hospital[facility] the event this information is protected by the Federal Confidentiality of Alcohol and Drug Abuse Patient Records regulations: The Federal rules restrict any use of the information to criminally investigate or prosecute any alcohol or drug abuse patient.[facility] HospitalIn the event this information is protected by the Federal Confidentiality of Alcohol and Drug Abuse Patient Records regulations: The Federal rules restrict any use of the information to criminally investigate or prosecute any alcohol or drug abuse patient.[facility] Hospital[facility] the event this information is protected by the Federal Confidentiality of Alcohol and Drug Abuse Patient Records regulations: The Federal rules restrict any use of the information to criminally investigate or prosecute any alcohol or drug abuse patient.[facility] HospitalIn the event this information is protected by the Federal Confidentiality of Alcohol and Drug Abuse Patient Records regulations: The Federal rules restrict any use of the information to criminally investigate or prosecute any alcohol or drug abuse patient.[facility] HospitalIn the event this information is protected by the Federal Confidentiality of Alcohol and Drug Abuse Patient Records regulations: The Federal rules restrict any use of the information to criminally investigate or prosecute any alcohol or drug abuse patient.[facility] HospitalIn the event this information is protected by the Federal Confidentiality of Alcohol and Drug Abuse Patient Records regulations: The Federal rules restrict any use of the information to criminally investigate or prosecute any alcohol or drug abuse patient.[facility] HospitalIn the event this information is protected by the Federal Confidentiality of Alcohol and Drug Abuse Patient Records regulations: The Federal rules restrict any use of the information to criminally investigate or prosecute any alcohol or drug abuse patient.[facility] HospitalIn the event this information is protected by the Federal Confidentiality of Alcohol and Drug Abuse Patient Records regulations: The Federal rules restrict any use of the information to criminally investigate or prosecute any alcohol or drug abuse patient.[facility] HospitalIn the event this information is protected by the Federal Confidentiality of Alcohol and Drug Abuse Patient Records regulations: The Federal rules restrict any use of the information to criminally investigate or prosecute any alcohol or drug abuse patient.[facility] HospitalIn the event this information is protected by the Federal Confidentiality of Alcohol and Drug Abuse Patient Records regulations: The Federal rules restrict any use of the information to criminally investigate or prosecute any alcohol or drug abuse patient.[facility] HospitalIn the event this information is protected by the Federal Confidentiality of Alcohol and Drug Abuse Patient Records regulations: The Federal rules restrict any use of the information to criminally investigate or prosecute any alcohol or drug abuse patient.[facility] HospitalIn the event this information is protected by the Federal Confidentiality of Alcohol and Drug Abuse Patient Records regulations: The Federal rules restrict any use of the information to criminally investigate or prosecute any alcohol or drug abuse patient.[facility] HospitalIn the event this information is protected by the Federal Confidentiality of Alcohol and Drug Abuse Patient Records regulations: The Federal rules restrict any use of the information to criminally investigate or prosecute any alcohol or drug abuse patient.[facility] HospitalIn the event this information is protected by the Federal Confidentiality of Alcohol and Drug Abuse Patient Records regulations: The Federal rules restrict any use of the information to criminally investigate or prosecute any alcohol or drug abuse patient.[facility] HospitalIn the event this information is protected by the Federal Confidentiality of Alcohol and Drug Abuse Patient Records regulations: The Federal rules restrict any use of the information to criminally investigate or prosecute any alcohol or drug abuse patient.[facility] HospitalIn the event this information is protected by the Federal Confidentiality of Alcohol and Drug Abuse Patient Records regulations: The Federal rules restrict any use of the information to criminally investigate or prosecute any alcohol or drug abuse patient.[facility] HospitalIn the event this information is protected by the Federal Confidentiality of Alcohol and Drug Abuse Patient Records regulations: The Federal rules restrict any use of the information to criminally investigate or prosecute any alcohol or drug abuse patient.[facility] HospitalIn the event this information is protected by the Federal Confidentiality of Alcohol and Drug Abuse Patient Records regulations: The Federal rules restrict any use of the information to criminally investigate or prosecute any alcohol or drug abuse patient.[facility] HospitalIn the event this information is protected by the Federal Confidentiality of Alcohol and Drug Abuse Patient Records regulations: The Federal rules restrict any use of the information to criminally investigate or prosecute any alcohol or drug abuse patient.[facility] HospitalIn the event this information is protected by the Federal Confidentiality of Alcohol and Drug Abuse Patient Records regulations: The Federal rules restrict any use of the information to criminally investigate or prosecute any alcohol or drug abuse patient.[facility] HospitalIn the event this information is protected by the Federal Confidentiality of Alcohol and Drug Abuse Patient Records regulations: The Federal rules restrict any use of the information to criminally investigate or prosecute any alcohol or drug abuse patient.[facility] HospitalIn the event this information is protected by the Federal Confidentiality of Alcohol and Drug Abuse Patient Records regulations: The Federal rules restrict any use of the information to criminally investigate or prosecute any alcohol or drug abuse patient.[facility] HospitalIn the event this information is protected by the Federal Confidentiality of Alcohol and Drug Abuse Patient Records regulations: The Federal rules restrict any use of the information to criminally investigate or prosecute any alcohol or drug abuse patient.[facility] HospitalIn the event this information is protected by the Federal Confidentiality of Alcohol and Drug Abuse Patient Records regulations: The Federal rules restrict any use of the information to criminally investigate or prosecute any alcohol or drug abuse patient.[facility] HospitalIn the event this information is protected by the Federal Confidentiality of Alcohol and Drug Abuse Patient Records regulations: The Federal rules restrict any use of the information to criminally investigate or prosecute any alcohol or drug abuse patient.[facility] HospitalIn the event this information is protected by the Federal Confidentiality of Alcohol and Drug Abuse Patient Records regulations: The Federal rules restrict any use of the information to criminally investigate or prosecute any alcohol or drug abuse patient.[facility] HospitalIn the event this information is protected by the Federal Confidentiality of Alcohol and Drug Abuse Patient Records regulations: The Federal rules restrict any use of the information to criminally investigate or prosecute any alcohol or drug abuse patient.[facility] HospitalIn the event this information is protected by the Federal Confidentiality of Alcohol and Drug Abuse Patient Records regulations: The Federal rules restrict any use of the information to criminally investigate or prosecute any alcohol or drug abuse patient.[facility] HospitalIn the event this information is protected by the Federal Confidentiality of Alcohol and Drug Abuse Patient Records regulations: The Federal rules restrict any use of the information to criminally investigate or prosecute any alcohol or drug abuse patient.[facility] HospitalIn the event this information is protected by the Federal Confidentiality of Alcohol and Drug Abuse Patient Records regulations: The Federal rules restrict any use of the information to criminally investigate or prosecute any alcohol or drug abuse patient.[facility] HospitalIn the event this information is protected by the Federal Confidentiality of Alcohol and Drug Abuse Patient Records regulations: The Federal rules restrict any use of the information to criminally investigate or prosecute any alcohol or drug abuse patient.[facility] HospitalIn the event this information is protected by the Federal Confidentiality of Alcohol and Drug Abuse Patient Records regulations: The Federal rules restrict any use of the information to criminally investigate or prosecute any alcohol or drug abuse patient.[facility] HospitalIn the event this information is protected by the Federal Confidentiality of Alcohol and Drug Abuse Patient Records regulations: The Federal rules restrict any use of the information to criminally investigate or prosecute any alcohol or drug abuse patient.[facility] HospitalIn the event this information is protected by the Federal Confidentiality of Alcohol and Drug Abuse Patient Records regulations: The Federal rules restrict any use of the information to criminally investigate or prosecute any alcohol or drug abuse patient.[facility] HospitalIn the event this information is protected by the Federal Confidentiality of Alcohol and Drug Abuse Patient Records regulations: The Federal rules restrict any use of the information to criminally investigate or prosecute any alcohol or drug abuse patient.[facility] HospitalIn the event this information is protected by the Federal Confidentiality of Alcohol and Drug Abuse Patient Records regulations: The Federal rules restrict any use of the information to criminally investigate or prosecute any alcohol or drug abuse patient.[facility] HospitalIn the event this information is protected by the Federal Confidentiality of Alcohol and Drug Abuse Patient Records regulations: The Federal rules restrict any use of the information to criminally investigate or prosecute any alcohol or drug abuse patient.[facility] HospitalIn the event this information is protected by the Federal Confidentiality of Alcohol and Drug Abuse Patient Records regulations: The Federal rules restrict any use of the information to criminally investigate or prosecute any alcohol or drug abuse patient.[facility] HospitalIn the event this information is protected by the Federal Confidentiality of Alcohol and Drug Abuse Patient Records regulations: The Federal rules restrict any use of the information to criminally investigate or prosecute any alcohol or drug abuse patient.[facility] HospitalIn the event this information is protected by the Federal Confidentiality of Alcohol and Drug Abuse Patient Records regulations: The Federal rules restrict any use of the information to criminally investigate or prosecute any alcohol or drug abuse patient.[facility] HospitalIn the event this information is protected by the Federal Confidentiality of Alcohol and Drug Abuse Patient Records regulations: The Federal rules restrict any use of the information to criminally investigate or prosecute any alcohol or drug abuse patient.[facility] HospitalIn the event this information is protected by the Federal Confidentiality of Alcohol and Drug Abuse Patient Records regulations: The Federal rules restrict any use of the information to criminally investigate or prosecute any alcohol or drug abuse patient.[facility] HospitalIn the event this information is protected by the Federal Confidentiality of Alcohol and Drug Abuse Patient Records regulations: The Federal rules restrict any use of the information to criminally investigate or prosecute any alcohol or drug abuse patient.[facility] HospitalIn the event this information is protected by the Federal Confidentiality of Alcohol and Drug Abuse Patient Records regulations: The Federal rules restrict any use of the information to criminally investigate or prosecute any alcohol or drug abuse patient.[facility] HospitalIn the event this information is protected by the Federal Confidentiality of Alcohol and Drug Abuse Patient Records regulations: The Federal rules restrict any use of the information to criminally investigate or prosecute any alcohol or drug abuse patient.[facility] HospitalIn the event this information is protected by the Federal Confidentiality of Alcohol and Drug Abuse Patient Records regulations: The Federal rules restrict any use of the information to criminally investigate or prosecute any alcohol or drug abuse patient.[facility] HospitalIn the event this information is protected by the Federal Confidentiality of Alcohol and Drug Abuse Patient Records regulations: The Federal rules restrict any use of the information to criminally investigate or prosecute any alcohol or drug abuse patient.[facility] HospitalIn the event this information is protected by the Federal Confidentiality of Alcohol and Drug Abuse Patient Records regulations: The Federal rules restrict any use of the information to criminally investigate or prosecute any alcohol or drug abuse patient.[facility] HospitalIn the event this information is protected by the Federal Confidentiality of Alcohol and Drug Abuse Patient Records regulations: The Federal rules restrict any use of the information to criminally investigate or prosecute any alcohol or drug abuse patient.[facility] HospitalIn the event this information is protected by the Federal Confidentiality of Alcohol and Drug Abuse Patient Records regulations: The Federal rules restrict any use of the information to criminally investigate or prosecute any alcohol or drug abuse patient.[facility] HospitalIn the event this information is protected by the Federal Confidentiality of Alcohol and Drug Abuse Patient Records regulations: The Federal rules restrict any use of the information to criminally investigate or prosecute any alcohol or drug abuse patient.[facility] HospitalIn the event this information is protected by the Federal Confidentiality of Alcohol and Drug Abuse Patient Records regulations: The Federal rules restrict any use of the information to criminally investigate or prosecute any alcohol or drug abuse patient.[facility] HospitalIn the event this information is protected by the Federal Confidentiality of Alcohol and Drug Abuse Patient Records regulations: The Federal rules restrict any use of the information to criminally investigate or prosecute any alcohol or drug abuse patient.[facility] HospitalIn the event this information is protected by the Federal Confidentiality of Alcohol and Drug Abuse Patient Records regulations: The Federal rules restrict any use of the information to criminally investigate or prosecute any alcohol or drug abuse patient.[facility] HospitalIn the event this information is protected by the Federal Confidentiality of Alcohol and Drug Abuse Patient Records regulations: The Federal rules restrict any use of the information to criminally investigate or prosecute any alcohol or drug abuse patient.[facility] HospitalIn the event this information is protected by the Federal Confidentiality of Alcohol and Drug Abuse Patient Records regulations: The Federal rules restrict any use of the information to criminally investigate or prosecute any alcohol or drug abuse patient.[facility] HospitalIn the event this information is protected by the Federal Confidentiality of Alcohol and Drug Abuse Patient Records regulations: The Federal rules restrict any use of the information to criminally investigate or prosecute any alcohol or drug abuse patient.[facility] HospitalIn the event this information is protected by the Federal Confidentiality of Alcohol and Drug Abuse Patient Records regulations: The Federal rules restrict any use of the information to criminally investigate or prosecute any alcohol or drug abuse patient.[facility] HospitalIn the event this information is protected by the Federal Confidentiality of Alcohol and Drug Abuse Patient Records regulations: The Federal rules restrict any use of the information to criminally investigate or prosecute any alcohol or drug abuse patient.[facility] HospitalIn the event this information is protected by the Federal Confidentiality of Alcohol and Drug Abuse Patient Records regulations: The Federal rules restrict any use of the information to criminally investigate or prosecute any alcohol or drug abuse patient.[facility] HospitalIn the event this information is protected by the Federal Confidentiality of Alcohol and Drug Abuse Patient Records regulations: The Federal rules restrict any use of the information to criminally investigate or prosecute any alcohol or drug abuse patient.[facility] HospitalIn the event this information is protected by the Federal Confidentiality of Alcohol and Drug Abuse Patient Records regulations: The Federal rules restrict any use of the information to criminally investigate or prosecute any alcohol or drug abuse patient.[facility] HospitalIn the event this information is protected by the Federal Confidentiality of Alcohol and Drug Abuse Patient Records regulations: The Federal rules restrict any use of the information to criminally investigate or prosecute any alcohol or drug abuse patient.[facility] HospitalIn the event this information is protected by the Federal Confidentiality of Alcohol and Drug Abuse Patient Records regulations: The Federal rules restrict any use of the information to criminally investigate or prosecute any alcohol or drug abuse patient.[facility] HospitalIn the event this information is protected by the Federal Confidentiality of Alcohol and Drug Abuse Patient Records regulations: The Federal rules restrict any use of the information to criminally investigate or prosecute any alcohol or drug abuse patient.[facility] HospitalIn the event this information is protected by the Federal Confidentiality of Alcohol and Drug Abuse Patient Records regulations: The Federal rules restrict any use of the information to criminally investigate or prosecute any alcohol or drug abuse patient.[facility] HospitalIn the event this information is protected by the Federal Confidentiality of Alcohol and Drug Abuse Patient Records regulations: The Federal rules restrict any use of the information to criminally investigate or prosecute any alcohol or drug abuse patient.[facility] HospitalIn the event this information is protected by the Federal Confidentiality of Alcohol and Drug Abuse Patient Records regulations: The Federal rules restrict any use of the information to criminally investigate or prosecute any alcohol or drug abuse patient.[facility] HospitalIn the event this information is protected by the Federal Confidentiality of Alcohol and Drug Abuse Patient Records regulations: The Federal rules restrict any use of the information to criminally investigate or prosecute any alcohol or drug abuse patient.[facility] HospitalIn the event this information is protected by the Federal Confidentiality of Alcohol and Drug Abuse Patient Records regulations: The Federal rules restrict any use of the information to criminally investigate or prosecute any alcohol or drug abuse patient.[facility] HospitalIn the event this information is protected by the Federal Confidentiality of Alcohol and Drug Abuse Patient Records regulations: The Federal rules restrict any use of the information to criminally investigate or prosecute any alcohol or drug abuse patient.[facility] HospitalIn the event this information is protected by the Federal Confidentiality of Alcohol and Drug Abuse Patient Records regulations: The Federal rules restrict any use of the information to criminally investigate or prosecute any alcohol or drug abuse patient.[facility] HospitalIn the event this information is protected by the Federal Confidentiality of Alcohol and Drug Abuse Patient Records regulations: The Federal rules restrict any use of the information to criminally investigate or prosecute any alcohol or drug abuse patient.[facility] HospitalIn the event this information is protected by the Federal Confidentiality of Alcohol and Drug Abuse Patient Records regulations: The Federal rules restrict any use of the information to criminally investigate or prosecute any alcohol or drug abuse patient.[facility] HospitalIn the event this information is protected by the Federal Confidentiality of Alcohol and Drug Abuse Patient Records regulations: The Federal rules restrict any use of the information to criminally investigate or prosecute any alcohol or drug abuse patient.[facility] Care Teams (unrecognized sec tion and content) Senior Systems Developer Relationship Specialty Start Date End Date Zachary Toney MD [address] [facility] [place] [address] PCP - General 06/20/02 Senior Systems Developer Relationship Specialty Start Date End Date Zachary Toney MD [address] [facility] [place] [address] PCP - General 06/20/02 Senior Systems Developer Relationship Specialty Start Date End Date Zachary Toney MD [facility] [facility] [place] [address] PCP - General 06/20/02 Senior Systems Developer Relationship Specialty Start Date End Date Zachary Toney MD [facility] [facility] [place] [address] PCP - General 06/20/02 Senior Systems Developer Relationship Specialty Start Date End Date Zachary Toney MD [facility] [place] [address] PCP - General 06/20/02 Senior Systems Developer Relationship Specialty Start Date End Date Zachary Toney MD [facility] [place] [address] PCP - General 06/20/02 Senior Systems Developer Relationship Specialty Start Date End Date Zachary Toney MD [address] [place] [address] [place] [address] PCP - General 06/20/02 Senior Systems Developer Relationship Specialty Start Date End Date Zachary Toney MD [address] [place] [address] [place] [address] PCP - General 06/20/02 Senior Systems Developer Relationship Specialty Start Date End Date Zachary Toney MD [address] [facility] [place] [address] PCP - General 06/20/02 Senior Systems Developer Relationship Specialty Start Date End Date Zachary Toney MD [address] [facility] [place] [address] PCP - General 06/20/02 Senior Systems Developer Relationship Specialty Start Date End Date Zachary Toney MD [address] [facility] [place] [address] PCP - General 06/20/02 Senior Systems Developer Relationship Specialty Start Date End Date Zachary Toney MD [address] [facility] [place] [address] PCP - General 06/20/02 Senior Systems Developer Relationship Specialty Start Date End Date Zachary Toney MD [address] [facility] [place] [address] PCP - General 06/20/02 Senior Systems Developer Relationship Specialty Start Date End Date Zachary Toney MD [address] [facility] [place] [address] PCP - General 06/20/02 Senior Systems Developer Relationship Specialty Start Date End Date Zachary Toney MD [address] [facility] [place] [address] PCP - General 06/20/02 Senior Systems Developer Relationship Specialty Start Date End Date Zachary Toney MD [address] [facility] [place] [address] PCP - General 06/20/02 Senior Systems Developer Relationship Specialty Start Date End Date Zachary Toney MD [address] [facility] [place] [address] PCP - General 06/20/02 Senior Systems Developer Relationship Specialty Start Date End Date Zachary Toney MD [address] [facility] [place] [address] PCP - General 06/20/02 Senior Systems Developer Relationship Specialty Start Date End Date Zachary Toney MD [address] [facility] [place] [address] PCP - General 06/20/02 Senior Systems Developer Relationship Specialty Start Date End Date Zachary Toney MD [address] [facility] [place] [address] PCP - General 06/20/02 Senior Systems Developer Relationship Specialty Start Date End Date Zachary Toney MD [address] [facility] [place] [address] PCP - General 06/20/02 Senior Systems Developer Relationship Specialty Start Date End Date Zachary Toney MD [address] [facility] [place] [address] PCP - General 06/20/02 Team Status: Active Member Role Status Dates Dr. Zachary Toney MD Family Provider Active Dr. Zachary Toney MD Primary Care Provider Active Team Status: Inactive Member Role Status Dates Dr. Zachary Toney MD Primary Care Provider, Refer ring Provider Active Dr. Shimon Estrada DO Attending Provider Active Team Status: Inactive Member Role Status Dates Dr. Zachary Toney MD Primary Care Provider Active Dr. Jeovany Sal MD Attending Provider Active Team Status: Inactive Member Role Status Dates Dr. Zachary Toney MD Primary Care Provider, Refer ring Provider Active Dr. Jorge Suazo MD Active SIMA Hunt Attending Provider Active Team Status: Inactive Member Role Status Dates Dr. Zachary Toney MD Primary Care Provider Active SIMA Hunt Attending Provider, Referring Pr ovider Active Senior Systems Developer Relationship Specialty Start Date End Date Zachary Toney MD [address] [facility] [place], [place] [id number] PCP - General 06/20/02 Senior Systems Developer Relationship Specialty Start Date End Date Zachary Toney MD [address] [place] [address] PCP - General 06/20/02 Team Status: Inactive Member Role Status Dates Dr. Zachary Toney MD Primary Care Provider, Refer ring Provider Active Dr. Felton Brown DO Attending Provider Active Team Status: Inactive Member Role Status Dates Dr. Zachary Toney MD Primary Care Provider Active Dr. Brett Morgan MD Emergency Provider Active Senior Systems Developer Relationship Specialty Start Date End Date Zachary Toney MD [address] [place] [address] PCP - General 06/20/02 Senior Systems Developer Relationship Specialty Start Date End Date Zachary Toney MD [address] [place] [address] PCP - General 06/20/02 Senior Systems Developer Relationship Specialty Start Date End Date Zachary Toney MD [address] [place] [address] PCP - General 06/20/02 Senior Systems Developer Relationship Specialty Start Date End Date Zachary Toney MD [address] [place] [address] PCP - General 06/20/02 Senior Systems Developer Relationship Specialty Start Date End Date Zachary Toney MD [address] [place] [address] PCP - General 06/20/02 Senior Systems Developer Relationship Specialty Start Date End Date Zachary Toney MD [address] [place] [address] PCP - General 06/20/02 Senior Systems Developer Relationship Specialty Start Date End Date Zachary Toney MD [address] [place] [address] PCP - General 06/20/02 Team Status: Inactive Member Role Status Dates Dr. Zachary Toney MD Primary Care Provider, Refer ring Provider Active SEPIDEH HuntC Attending Provider Active Team Status: Inactive Member Role Status Dates Dr. Zachary Toney MD Primary Care Provider Active Dr. Brett Morgan MD Attending Provider, Emergency Provider Active Team Status: Inactive Member Role Status Dates Dr. Zachary Toney MD Primary Care Provider Active Dr. Felton Brown DO Attending Provider, Referring Provider Active Senior Systems Developer Relationship Specialty Start Date End Date Zachary Toney MD [address] [place] [address] PCP - General 06/20/02 Senior Systems Developer Relationship Specialty Start Date End Date Zachary Toney MD [address] [place] [address] PCP - General 06/20/02 Senior Systems Developer Relationship Specialty Start Date End Date Zachary Toney MD [address] [place] [address] PCP - General 06/20/02 Senior Systems Developer Relationship Specialty Start Date End Date Zachary Toney MD [address] [place] [address] PCP - General 06/20/02 Senior Systems Developer Relationship Specialty Start Date End Date Zachary Toney MD [address] [place] [address] PCP - General 06/20/02 Team Status: Active Member Role Status Dates Dr. Zachary Toney MD Primary Care Provider, Refer ring Provider Active Dr. Felton Brown , DO Attending Provider, Other Prov ider Active Senior Systems Developer Relationship Specialty Start Date End Date Zachary Toney MD [address] [facility] [place] [address] PCP - General 06/20/02 Senior Systems Developer Relationship Specialty Start Date End Date Zachary Toney MD [address] [place] [address] PCP - General 06/20/02 Senior Systems Developer Relationship Specialty Start Date End Date Zachary Toney MD [address] [place] [address] PCP - General 06/20/02 Senior Systems Developer Relationship Specialty Start Date End Date Zachary Toney MD [address] [place] [address] PCP - General 06/20/02 Team Status: Inactive Member Role Status Dates Dr. Zachary Toney MD Primary Care Provider Active Dr. James Brandon MD Emergency Provider Active Senior Systems Developer Relationship Specialty Start Date End Date Zachary Toney MD [address] [facility] [place] [address] PCP - General 06/20/02 Senior Systems Developer Relationship Specialty Start Date End Date Zachary Toney MD [address] [facility] [place] [address] PCP - General 06/20/02 Senior Systems Developer Relationship Specialty Start Date End Date Zachary Toney MD [address] [facility] [place] [address] PCP - General 06/20/02 Senior Systems Developer Relationship Specialty Start Date End Date Zachary Toney MD [address] [facility] [place] [address] PCP - General 06/20/02 Senior Systems Developer Relationship Specialty Start Date End Date Zachary Toney MD [address] [facility] [place] [address] PCP - General 06/20/02 Senior Systems Developer Relationship Specialty Start Date End Date Zachary Toney MD [address] [place] [address] PCP - General 06/20/02 Senior Systems Developer Relationship Specialty Start Date End Date Zachary Toney MD [address] [facility] [place] [address] PCP - General 06/20/02 Senior Systems Developer Relationship Specialty Start Date End Date Zachary Toney MD [address] [facility] [place] [address] PCP - General 06/20/02 Priyanka Marie, YOUTH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 [address] [facility] [place] [address] Agricultural Extension Officer Internal Medicine 08/07/24 Senior Systems Developer Relationship Specialty Start Date End Date Zachary Toney MD [address] [facility] [place] [address] PCP - General 06/20/02 Priyanka Marie, YOUTH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 [address] [facility] [place] [address] Agricultural Extension Officer Internal Medicine 08/07/24 Senior Systems Developer Relationship Specialty Start Date End Date Zachary Toney MD [address] [facility] [place] [address] PCP - General 06/20/02 Priyanka Marie, YOUTH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 [address] [facility] [place] [address] Agricultural Extension Officer Internal Medicine 08/07/24 Senior Systems Developer Relationship Specialty Start Date End Date Zachary Toney MD [address] [facility] [place] [address] PCP - General 06/20/02 Priyanka Marie, YOUTH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 [address] [facility] [place] [address] Agricultural Extension Officer Internal Medicine 08/07/24 Senior Systems Developer Relationship Specialty Start Date End Date Zachary Toney MD [address] [facility] [place] [address] PCP - General 06/20/02 Priyanka Marie, YOUTH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 [address] [facility] [place] [address] Agricultural Extension Officer Internal Medicine 08/07/24 Senior Systems Developer Relationship Specialty Start Date End Date Zachary Toney MD [address] [facility] [place] [address] PCP - General 06/20/02 Priyanka Marie, YOUTH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 [address] [facility] [place] [address] Agricultural Extension Officer Internal Medicine 08/07/24 Senior Systems Developer Relationship Specialty Start Date End Date Zachary Toney MD [address] [facility] [place] [address] PCP - General 06/20/02 Priyanka Marie, YOUTH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 [address] [facility] [place] [address] Agricultural Extension Officer Internal Medicine 08/07/24 Senior Systems Developer Relationship Specialty Start Date End Date Zachary Toney MD [address] [facility] [place] [address] PCP - General 06/20/02 Priyanka Marie, YOUTH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 [address] [facility] [place] [address] Agricultural Extension Officer Internal Medicine 08/07/24 Senior Systems Developer Relationship Specialty Start Date End Date Zachary Toney MD [address] [facility] [place] [address] PCP - General 06/20/02 Priyanka Marie, YOUTH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 [address] [facility] [place] [address] Agricultural Extension Officer Internal Medicine 08/07/24 Senior Systems Developer Relationship Specialty Start Date End Date Zachary Toney MD [address] [facility] [place] [address] PCP - General 06/20/02 Priyanka Marie, YOUTH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 [address] [facility] [place] [address] Agricultural Extension Officer Internal Medicine 08/07/24 Senior Systems Developer Relationship Specialty Start Date End Date Zachary Toney MD [address] [facility] [place] [address] PCP - General 06/20/02 Priyanka Marie, YOUTH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 [address] [facility] [place] [address] Agricultural Extension Officer Internal Medicine 08/07/24 Senior Systems Developer Relationship Specialty Start Date End Date Zachary Toney MD [address] [facility] [place], [place] [address] PCP - General 06/20/02 Priyanka Marie, YOUTH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 [address] [facility] [place], [place] [address] Agricultural Extension Officer Internal Medicine 08/07/24 Team Status: Active Member Role/Relationship Status Dates Dr. Zachary Toney MD Primary Care Provider Active Team Status: Inactive Member Role/Relationship Status Dates Dr. Zachary Toney MD Primary Care Provider Active Start: February 27, 2025 Dr. Tiara Up MD Attending Provider Active Start: February 27, 2025 Team Status: Inactive Member Role/Relationship Status Dates Dr. Zachary Toney MD Primary Care Provider Active Start: April 05, 2025 End: April 05, 2025 Dr. James Brandon MD Emergency Provider Active S tart: April 05, 2025 End: April 05, 2025 Team Status: Inactive Member Role/Relationship Status Dates Dr. Zachary Toney MD Primary Care Provider Active Start: April 10, 2025 End: April 10, 2025 Dr. Zachary Toney MD Referring Provider Active Start: April 10, 2025 End: April 10, 2025 Dr. Tiara Up MD Attending Provider Active Start: April 10, 2025 End: April 10, 2025 Senior Systems Developer Relationship Specialty Start Date End Date Zachary Toney MD [address] [place] [address] PCP - General 06/20/02 Priyanka Marie, YOUTH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 [address] [place], [place] [address] Agricultural Extension Officer Internal Medicine 08/07/24 Team Status: Active Member Role/Relationship Status Dates Dr. Zachary Toney MD Primary care physician Activ e Team Status: Inactive Member Role/Relationship Status Dates Dr. Zachary Toney MD Primary care physician Activ e Start: February 27, 2025 Dr. Tiara Up MD Attending physician Active Start: February 27, 2025 Team Status: Inactive Member Role/Relationship Status Dates Dr. Zachary Toney MD Primary care physician Activ e Start: April 05, 2025 End: April 05, 2025 Dr. James Brandon MD Attending physician Active Start: April 05, 2025 End: April 05, 2025 Dr. James Brandon [facility] Active Start: April 05, 2025 End: April 05, 2025 Team Status: Inactive Member Role/Relationship Status Dates Dr. Zachary Toney MD Primary care physician Activ e Start: April 10, 2025 End: April 10, 2025 Dr. Zachary Toney MD Referring Provider Active Start: April 10, 2025 End: April 10, 2025 Dr. Tiara Up MD Attending physician Active Start: April 10, 2025 End: April 10, 2025 Team Status: Inactive Member Role/Relationship Status Dates Dr. Zachary Toney MD Primary care physician Activ e Start: May 30, 2025 End: May 30, 2025 Dr. Zachary Toney MD Referring Provider Active Start: May 30, 2025 End: May 30, 2025 SIMA Hunt Attending physician Active Start: May 30, 2025 End: May 30, 2025 FOR RECORDS PERTAINING TO PATIENTS WHO ARE OR HAVE BEEN ENROLLED IN A CHEMICAL DEPENDENCY/SUBSTANCEABUSE PROGRAM, SOME INFORMATION MAY BE OMITTED. This clinical summary was aggregated from multiple sources. Caution should be exercised in using it in the provision of clinical care. This summary normalizes information from multiple sources, and as a consequence, information in this document may materially change the coding, format and clinical context of patient data. In addition, data may be omitted in some cases. CLINICAL DECISIONS SHOULD BE BASED ON THE PRIMARY CLINICAL RECORDS. [facility]. provides no warranty or guarantee of the accuracy or completeness of information in this document.
[2025-08-15] MEDS: Lactated Ringers 1,000 ML 15 ML IV (06:07)
--- NOTE | 2025-08-15 06:22 | PRE.ANES_ITS ---
ASA Classification* ASA Classification ASA Classification: 3 Assessment & Plan Anesthesia* Anesthesia Assessment Anesthesia Assessment: Discussed sedation and/or anesthesia options, risks, benefits, and alternatives with patient/parents/legal guardian/POA. Questions invited. The patient/parents/legal guardian/POA seems to understand and agrees to proceed with anesthesia plan. Reviewed the physical assessment, medical history, allergy history and patient home medications list prior to surgery/procedure/anesthetic and documented any changes. Performed airway and anesthesia risk assessments. Anesthesia Type Anesthesia Type: MAC History Source History Obtained from:: Patient Anesthesia Focused Assessment* Temperature: 98.5 F Pulse Rate: 58 Blood Pressure: 96/54 Respiratory Rate: 16 Pulse Ox: 99 Oxygen Delivery Method: Room Air Airway Assessment Mouth opens: >3 cm Mallampati Score: I Teeth Condition: Dentures (Patient has full upper lower dentures. They will come out.) Neck Range of motion (ROM): Limited ROM (Somewhat Decreased due to cervical fusion.) Labs Anesthesia Preop lab: CBC WBC, (4.4-11.0) 10.8 K/mm3 04/05/25, 16:10 RBC, (4.2-5.4) 4.74 M/mm3 04/05/25, 16:10 Hgb, (12.0-15.0) 12.5 g/dL 04/05/25, 16:10 Hct, (37-47) 38.2 % 04/05/25, 16:10 Plt Count, (150-450) 344 K/mm3 04/05/25, 16:10 CHEMISTRY Potassium, (3.3-5.1) 4.1 mmol/L 06/19/25, 08:08 Sodium, (133-145) 140 mmol/L 06/19/25, 08:08 Magnesium, (1.6-2.6) 2.0 mg/dL 05/29/24, 01:24 Phosphorus, (2.5-4.9) 3.9 mg/dL 05/09/21, 04:56 BUN, (4-19) 14 mg/dL 06/19/25, 08:08 Creatinine, (0.70-1.20) 0.95 mg/dL 06/19/25, 08:08 Glucose, (70-99) 71 mg/dL 06/19/25, 08:08 POC Glucose, (74-106) 135 mg/dL H 09/27/24, 10:54 TSH, (0.300-4.200) 1.500 uIU/mL 06/19/25, 08:08 COAG Pre-Assessment Diagnosis/Proposed Procedure Planned Operative Procedure(s): EGD Anesthesia History Anesthesia History - assistant program manager: Anesthesia History - assistant program manager Hx Hospitalization No 08/01/25 14:11 Any Problems With Anesthesia No 08/01/25 14:11 Cholinesterase deficiency No 08/01/25 14:11 You/Your Family Experience No 08/01/25 14:11 fever (hyperthermia) with Relationship Recent Exposure to Contagious No 08/15/25 06:00 Disease Does patient have nerve No 08/01/25 14:11 stimulator Patient instructed to have device shut off --Does patient have Pacemaker No 08/15/25 06:00 or ICD? When Was Last Pacemaker Check QUESTION #4 FULL TEXT: You/Your Family Experience fever (hyperthermia) with Anesthesia Last Oral Intake Last Oral intake: Last Oral Intake NPO since 03:30 08/15/25 06:00 Meds taken in AM with sips of Yes 08/15/25 06:00 water? Meds patient instructed to take am of surgery Any additional information?: Yes Meds taken in AM with sips of water?: Yes Meds patient instructed to take am of surgery: Gabapentin, Zofran. PONV PONV - assistant program manager: PONV - assistant program manager Female Yes 08/01/25 14:11 HX of Motion Sickness No 08/01/25 14:11 HX of N/V After Surgery Yes 08/01/25 14:11 Non-Smoker Yes 08/01/25 14:11 Duration of Surgery greater No 08/01/25 14:11 than 60 minutes Number of Risk Factors 3 08/01/25 14:11 PONV Score Moderate Risk 08/01/25 14:11 Height & Weight Height & Weight: Anesthesia: Height & Weight Height 5 ft 3 in 08/15/25 06:00 Weight: 71 kg 08/15/25 06:00 Body Mass Index (BMI) 27.7 08/15/25 06:00 Respiratory Assessment Respiratory Assessment - assistant program manager: Respiratory Tract Infection Hx - assistant program manager Hx Respiratory Tract Infection No 08/01/25 14:11 STOP Sleep Apnea STOP Sleep Apnea - assistant program manager: STOP Sleep Apnea - assistant program manager Hx Hypertension Yes 08/01/25 14:11 Hx Sleep Apnea Yes 08/01/25 14:11 CPAP No 08/01/25 14:11 BIPAP No 08/01/25 14:11 Do you snore loudly (louder than talking or can be heard Do you often feel tired/ fatigued/ sleepy during daytime? Has anyone observed you stop breathing during sleep? STOP Results Positive 08/01/25 14:11 QUESTION #5 FULL TEXT : Do you snore loudly (louder than talking or can be heard through closed doors)? Tobacco Use History Tobacco Use History - assistant program manager: Tobacco Use History - assistant program manager Tobacco Use Smoking Status Former smoker 08/01/25 14:11 Hx Tobacco Use No 08/01/25 14:11 Years Smoking Packs Smoked per Day Smoking Cessation Date was No - quit smoking greater 08/01/25 14:11 within the last 15 years than 15 years ago Hx Smoking Cessation Date 08/30/07 08/01/25 14:11 Hx Smoking Cessation No 08/01/25 14:11 Counseling Hematologic Medial History Hematologic Hx - assistant program manager: Hematologic Medical Hx - documentation engineer Hx of Blood Transfusion No 08/01/25 14:11 Hx of Transfusion in last 3 No 08/01/25 14:11 Months Date of Last Transfusion (if within last 3 months) Ever experience any problems No 08/01/25 14:11 with transfusion(s)? Specify any problems Hx of Preganancy in last 3 No 08/01/25 14:11 Months Nurse Filling Out Transfusion VLEHMAN 08/01/25 14:11 & Questions: Date: 08/01/25 08/01/25 14:11 Time: 14:23 08/01/25 14:11 Patient unable to answer at this time (ie. confused, unrespo /Reproduction History /Reproductive History - assistant program manager: /Reproductive Hx- assistant program manager Hx Now Gestational Age (in weeks): EDC: Hx Hx Para Hx Section SAB No 08/01/25 14:11 Does the father of the baby or his family experience fever w Father of the baby Malignant Hypertension history comment Active Medications Active Medications: Current Medications Generic Name Dose Route Start Last Admin Trade Name Freq PRN Reason Stop Dose Admin Lactated Ringer's 1,000 mls @ 15 mls/hr 08/15/25 06:00 08/15/25 06:07 IV 15 mls/hr .Q48H JEWEL Administration PFSH Medical History Post-menopausal Seizures Gastric reflux History of Crohn's disease Sleep apnea History of echocardiogram Adrenal adenoma Vaginal atrophy Mixed incontinence Nocturia Overactive bladder Cystocele, midline Insulin dependent diabetes mellitus Ambulates with cane History of renal disease GERD (gastroesophageal reflux disease) Obesity Presence of pessary Presence of insulin pump Gastroparesis Diabetes Wears glasses Wears dentures Depression Anxiety Marijuana use Thyroid disease Arthritis Fatty liver High cholesterol Restless legs Injury of head and neck Dietary restriction History of hiatal hernia Former smoker Leg cramps History of edema History of stress test Cardiology follow-up encounter Diarrhea Nausea & vomiting Abdominal pain Diarrhea Nausea Acute right flank pain Acute hypokalemia Hyperlipidemia HTN (hypertension) Home Medications ?Medication ?Instructions ?Recorded ?Last Taken ?Type lisinopril 20 2 tab PO DAILY bp 09/22/19 0 09/26/24 History mg-hydrochlorothiazide 12.5 mg tablet sertraline 100 mg tablet 100 mg PO DAILY depression 0 09/22/19 09/26/24 History omeprazole 40 mg capsule,delayed 40 mg PO BID gerd 08/2009/27/24 History release trazodone 100 mg tablet 100 mg PO QHS insomnia 12/0909/26/24 History atorvastatin 40 mg tablet 40 mg PO QHS 05/03/24 History blood sugar diagnostic (Accu-Chek #100 ea 05/24/24 Unk nown Rx Guide test strips) cholecalciferol (vitamin D3) 100 2,000 unit PO BID Unknown History mcg (4,000 unit) capsule pen needle, diabetic 32 gauge x #100 ea 11/29/24 Unkno wn Rx (BD Ultra-Fine Sheri Pen Needle) insulin lispro 100 unit/mL 100 unit continuous subcuta neous 12/06/24 Unknown Rx subcutaneous solution infusion .continuous #90 mL estradiol 0.01% (0.1 mg/gram) 1 g vaginal 3XW #42.5 gr ams 04/10/25 Unknown Rx vaginal cream gabapentin 300 mg capsule 300 mg PO .COMPLEX 04/10/25 08/15/25 03:30 History mirabegron 50 mg tablet,extended 50 mg PO QDAY #90 tab s 04/10/25 Unknown Rx release 24 hr (Myrbetriq) empagliflozin 25 mg tablet 25 mg PO QAM #30 tabs 05/2108/11/25 Rx (Jardiance) blood-glucose sensor (Dexcom G7 #9 ea 06/06/25 Unknown Rx Sensor device) hyoscyamine sulfate 0.125 mg tablet 0.125 mg PO BID-QI D PRN dyspepsia 06/08/25 Unknown Rx #120 tabs lubiprostone 24 mcg capsule 24 mcg PO BID #60 caps Unknown Rx dicyclomine 10 mg capsule 10 mg PO TID 08/01/25 Unknow n History metformin 500 mg tablet,extended 500 mg PO DAILY 08/01 Unknown History release 24 hr ondansetron 4 mg disintegrating 4 mg PO TID PRN nausea and vomiting 08/01/25 08/15/25 History tablet Allergy/AdvReac Type Severity Reaction Status Date / Time simvastatin (From Zocor) Allergy Swelling Verified 08/15/25 05:55 Sulfa (Sulfonamide Allergy Swelling Verified 08/15/25 05:55 Antibiotics) Family History Mother Hypertension Lupus Glaucoma Arthritis Neuropathy Brother Diabetes Hypertension Hyperlipemia Other Heart disease Osteoporosis Surgical History History of right knee surgery History of esophagogastroduodenoscopy (EGD) Hx of colonoscopy History of esophagogastroduodenoscopy (EGD) History of hysterectomy H/O foot surgery History of hip surgery History of rotator cuff surgery h/o left hand surgery Social History household members: other details: daughter housing: house Smoking Status: Former smoker Tobacco: How many years used: 35 alcohol intake: never what type of physical activity do you participate in: none do you feel safe at home: Yes Review of Systems (Anesthesia) ROS Narrative System reviewed and no additional complaints, except as documented.
--- NOTE | 2025-08-15 06:30 | EGD_PTH ---
PATIENT: LELAND SIMMONS LOC: EN U#:[id number] AGE/SX: 65/F ROOM: RE08/15/[address]: Dr. Felton Brown DO : 1960 BED: DIS: 08/15/2025 SPEC #: [id number] RECD: 08/15/25 07:57 STATUS: NABIL RUTH ANN #: [id number] FERMIN: 08/15/25 06:[address]: Felton Brown DEPT: SURGICAL PATHOLOGY RECD BY: Saud Schumacher ENTERED: 08/15/25 15:38 SP TYPE: EGD BIOPSY EVAN DR: Dr. Zachary Toney MD Tissues: A - Duodenum, NOS B - Gastric mucous membrane Procedures: Immunohistochemical Stains Surgery Specimen Level IV HEADER OPERATION: EGD, biopsy PRE-OP DIAGNOSIS: Abdominal pain, nausea / vomiting, constipation TISSUE SUBMITTED: A- Duodenum biopsy, B- Gastric antrum biopsy MICROSCOPIC DIAGNOSIS A. Small intestine, duodenum, biopsy: Normal villous architecture with Mary gland hyperplasia. Negative for increased intraepithelial lymphocytes. B. Stomach, antrum, biopsy: Oxyntic mucosa with features of reactive gastropathy. IHC negative for H. pylori organisms. MICROSCOPIC DESCRIPTION Slides are reviewed. All matched controls reacted appropriately. These tests were developed and their performance characteristics determined by [facility]. They may not have been cleared or approved by the U.S. Food and Drug Administration. The FDA has determined that such clearance or approval is not necessary. The above immunohistochemical markers are viewed by the Pathologist. GROSS DESCRIPTION A. Received in fixative is one container labeled with the patient's name and designated Duodenum biopsy. The specimen consists of three irregular fragments of contreras tissue that measure 0.1 to 0.4 cm. Smallest fragment may not survive processing. The specimen is totally submitted in one cassette. B. Received in fixative is one container labeled with the patient's name and designated Gastric antrum biopsy. The specimen consists of two irregular fragments of contreras tissue that measure 0.6 and 0.8 cm. The specimen is totally submitted in one cassette. MA 08/15/2025 CPT:71474k9,54004
--- NOTE | 2025-08-15 06:41 | PCM.HP.STD ---
HPI - General General Date of Admission: 08/15/25 Date of Service: 08/15/25 Chief Complaint: Abdominal pain HPI Narrative STEFANIE SIMMONS, is a 65 F who presents [STEFANIE SIMMONS, is a 65 F who presents to the office today for follow-up. OV 05.18.23 she has had a return of nausea and emesis. BM have been normal with rare loose stools; continues with Linzess. Her insulin pump has been removed and she is no longer having her DMII managed (Dr. Lucie Suazo gift manager who has been working at and received approval for closed loop monitoring); Dr. Suazo updated regarding symptoms and possibility of islet transplantation appropriateness. Start doxycycline GET 05.24.23 25.44minutes (12-56) Contact 05.28.23 with results: continue workup with endocrinology to manage DMII and in-turn GI symptoms. OV 08.10.23 continues to have nausea and limited emesis with abdominal pain/discomfort. Hgb A1c 14.5. She now has her insulin pump reattached and reports her sugars have been within her prescribed blood sugar range. Urgent loose stools with urgency related incontinence has been an issue since start of Linzess 145mcg; prior to use of Linzess she did not have urgency or urgency incontinence. EGD & Colonoscopy .03.22 Colon - The procedure was aborted due to the patient's neurologic instability (seizure). Diverticulosis in the recto-sigmoid colon and in the sigmoid colon. No specimens collected. EGD - Normal esophagus. Medium-sized hiatal hernia. Erythematous mucosa in the gastric body. Biopsied. Erythematous duodenopathy. Biopsied. [facility] ED 5 back muscle spasms OV 5 pt reports that the linzess has been effective and is having a daily bm as long as she does not run out. Pt reports worsened symptoms of GERD and acid reflux. Pt reports continuing omeprazole, but stopped Carafate because it was dissolving in her mouth before she could swallow it. OV 07.24.24- Patient states ongoing constipation. Has a BM every few days. Takes Linzess 72mcg. Wants to try increasing dose. Daily abdominal pain and bloating. Contiunes with Omeprazole for heartburn. Is mostly controlled OV 07/20/25 patient having constipation over the last 3 weeks despite being on lubiprostone 8 mcg daily. She is having bowel movement once per week. Patient also having nausea and vomiting over the past 2 weeks. She has vomited 3 days in a row. She has no appetite and feels full. He has associated upper abdominal pain. Patient endorses a 6 pound weight loss over the past year. ] [facility] Medical History Post-menopausal Seizures Gastric reflux History of Crohn's disease Sleep apnea History of echocardiogram Adrenal adenoma Vaginal atrophy Mixed incontinence Nocturia Overactive bladder Cystocele, midline Insulin dependent diabetes mellitus Ambulates with cane History of renal disease GERD (gastroesophageal reflux disease) Obesity Presence of pessary Presence of insulin pump Gastroparesis Diabetes Wears glasses Wears dentures Depression Anxiety Marijuana use Thyroid disease Arthritis Fatty liver High cholesterol Restless legs Injury of head and neck Dietary restriction History of hiatal hernia Former smoker Leg cramps History of edema History of stress test Cardiology follow-up encounter Diarrhea Nausea & vomiting Abdominal pain Diarrhea Nausea Acute right flank pain Acute hypokalemia Hyperlipidemia HTN (hypertension) Home Medications ?Medication ?Instructions ?Recorded ?Last Taken ?Type lisinopril 20 2 tab PO DAILY bp 09/22/19 09/26/24 History mg-hydrochlorothiazide 12.5 mg tablet sertraline 100 mg tablet 100 mg PO DAILY depression 09/22/19 09/26/24 History omeprazole 40 mg capsule,delayed 40 mg PO BID gerd 12/09/21 09/27/24 History release trazodone 100 mg tablet 100 mg PO QHS insomnia 12/09/21 09/26/24 History atorvastatin 40 mg tablet 40 mg PO QHS 05/03/24 09/26/24 History blood sugar diagnostic (Accu-Chek #100 ea 05/24/24 Unknown Rx Guide test strips) cholecalciferol (vitamin D3) 100 2,000 unit PO BID 09/27/24 Unknown History mcg (4,000 unit) capsule pen needle, diabetic 32 gauge x #100 ea 11/29/24 Unknown Rx (BD Ultra-Fine Sheri Pen Needle) insulin lispro 100 unit/mL 100 unit continuous subcutaneous 12/06/24 Unknown Rx subcutaneous solution infusion .continuous #90 mL estradiol 0.01% (0.1 mg/gram) 1 g vaginal 3XW #42.5 grams 04/10/25 Unknown Rx vaginal cream gabapentin 300 mg capsule 300 mg PO .COMPLEX 04/10/25 08/15/25 03:30 History mirabegron 50 mg tablet,extended 50 mg PO QDAY #90 tabs 04/10/25 Unknown Rx release 24 hr (Myrbetriq) empagliflozin 25 mg tablet 25 mg PO QAM #30 tabs 05/21/25 08/11/25 Rx (Jardiance) blood-glucose sensor (Dexcom G7 #9 ea 06/06/25 Unknown Rx Sensor device) hyoscyamine sulfate 0.125 mg tablet 0.125 mg PO BID-QID PRN dyspepsia 06/08/25 Unknown Rx #120 tabs lubiprostone 24 mcg capsule 24 mcg PO BID #60 caps 07/20/25 Unknown Rx dicyclomine 10 mg capsule 10 mg PO TID 08/01/25 Unknown History metformin 500 mg tablet,extended 500 mg PO DAILY 08/01/25 Unknown History release 24 hr ondansetron 4 mg disintegrating 4 mg PO TID PRN nausea and vomiting 08/01/25 08/15/25 History tablet Allergy/AdvReac Type Severity Reaction Status Date / Time simvastatin (From Zocor) Allergy Swelling Verified 08/15/25 05:55 Sulfa (Sulfonamide Allergy Swelling Verified 08/15/25 05:55 Antibiotics) Family History Mother Hypertension Lupus Glaucoma Arthritis Neuropathy Brother Diabetes Hypertension Hyperlipemia Other Heart disease Osteoporosis Surgical History History of right knee surgery History of esophagogastroduodenoscopy (EGD) Hx of colonoscopy History of esophagogastroduodenoscopy (EGD) History of hysterectomy H/O foot surgery History of hip surgery History of rotator cuff surgery h/o left hand surgery Social History household members: other details: daughter housing: house Smoking Status: Former smoker Tobacco: How many years used: 35 alcohol intake: never what type of physical activity do you participate in: none do you feel safe at home: Yes ROS Constitutional Constitutional: Denies fatigue, fever(s), poor appetite, weight gain or weight loss Gastrointestinal Gastrointestinal: Denies belching, bloating, change in bowel habits, change in stool character, chewing difficulty, coffee ground emesis, constipation, cramping, diarrhea, dyspepsia, dysphagia, early satiety, excessive flatus, fecal incontinence, heartburn, hematemesis, hematochezia, hemorrhoids, loose stools, melena, nausea, odynophagia, rectal bleeding, tenesmus, vomiting or weight changes Vital Signs Vital Signs Vital Signs: 08/15/25 06:00 08/15/25 06:00 08/15/25 06:00 Temperature 98.5 F Temperature Source Temporal Pulse Rate 58 L Respiratory Rate 16 Respiratory Pattern Normal Blood Pressure 96/54 L Blood Pressure Mean 68 Blood Pressure Source Monitor Blood Pressure Position Sitting Blood Pressure Location Right Arm Baseline BP 95/54 Pulse Ox 99 Oxygen Delivery Method Room Air 08/15/25 06:30 Temperature 98.5 F Temperature Source Pulse Rate 58 L Respiratory Rate 16 Respiratory Pattern Blood Pressure 96/54 L Blood Pressure Mean Blood Pressure Source Blood Pressure Position Blood Pressure Location Baseline BP Pulse Ox 99 Oxygen Delivery Method Room Air Weight Weight: 156 lb 8.451 oz Body Mass Index (BMI) 27.7 Physical Exam Const alert, oriented x3, no apparent distress and healthy appearing General Appearance: cooperative GI normal to inspection, nondistended, normoactive bowel sounds, soft to palpation, non-tender and non-distended Percussion: normal to percussion Rectal Exam: deferred Results Lab / Micro Data Labs: Laboratory Results - last 24 hr 08/15/25 05:59: POC Glucose 83 Assessment & Plan Assessment/Plan (1) Gastroparesis: (2) Nausea & vomiting: QUALIFIERS: Vomiting type: unspecified Qualified Code(s): R11.2 - Nausea with vomiting, unspecified (3) Abdominal pain: QUALIFIERS: Abdominal location: epigastric Qualified Code(s): R10.13 - Epigastric pain PLAN: Assessment and Plan (1) Abdominal pain: Status: Chronic Qualifiers: Abdominal location: epigastric Qualified Code(s): R10.13 - Epigastric pain (2) Nausea & vomiting: Status: Chronic Qualifiers: Vomiting type: unspecified Qualified Code(s): R11.2 - Nausea with vomiting, unspecified (3) Constipation: Status: Acute Plan: Stefanie is a 65-year-old female patient with past medical history of diabetes, abdominal pain, CKD, constipation and overactive bladder here today for follow-up. Patient doing well over the past year up until a few weeks ago when she started having nausea and vomiting and worsening constipation. Patient is currently taking lubiprostone 8 mcg twice a day without relief. She is having a bowel movement once per week. She notes she has had vomiting 3 days in a row. She feels full and has had a lack of appetite. She endorses a 6 pound weight loss over the past year. I recommended repeat EGD for evaluation of her upper GI tract. I have also sent in the lubiprostone 24 mcg for her to take twice daily. If symptoms resolve with resolution of constipation she may cancel her EGD. - Increase lubiprostone - EGD - Cancel procedure if symptoms resolve - Follow-up as needed Note: Portions of this note may have been selectively carried forward from previous documentation to ensure continuity and accuracy of the clinical record. All imported information has been reviewed and updated as necessary to reflect the current patient status, findings, and clinical decision-making for this encounter. [employer] speech recognition medication tech software was used to create portions of this document. Sound alike and misspelled words, as well as other medication tech errors may be contained in the documentation. Medications: New lubiprostone 24 mcg PO BID 60 caps 2RF
--- NOTE | 2025-08-15 07:06 | OP.EGD_ITS ---
Patient Name: Stefanie Wayne Procedure Date: 08/15/2025 6:19 AM Date of : 1960 Age: 65 Procedure: Upper GI endoscopy Indications: Epigastric abdominal pain, Functional Dyspepsia, Dyspepsia, Failure to respond to medical treatment Providers: Felton Brown DO Referring MD: Zachary Toney Medicines: Monitored Anesthesia Care Patient Profile: This is a 65 year old female. Refer to note in patient chart for documentation of history and physical. Patient has symptoms of chronic abdominal cramping, chronic epigastric abdominal pain and chronic dyspepsia. Complications: No immediate complications. Procedure: Pre-Anesthesia Assessment: - Prior to the procedure, a History and Physical was performed, and patient medications and allergies were reviewed. The patient is competent. The risks and benefits of the procedure and the sedation options and risks were discussed with the patient. All questions were answered and informed consent was obtained. Patient identification and proposed procedure were verified by the physician in the pre-procedure area. Mental Status Examination: alert and oriented. Airway Examination: normal oropharyngeal airway and neck mobility. Respiratory Examination: clear to auscultation. CV Examination: normal. Prophylactic Antibiotics: The patient does not require prophylactic antibiotics. Prior Anticoagulants: The patient has taken no anticoagulant or antiplatelet agents. ASA Grade Assessment: II - A patient with mild systemic disease. After reviewing the risks and benefits, the patient was deemed in satisfactory condition to undergo the procedure. The anesthesia plan was to use monitored anesthesia care (MAC). Immediately prior to administration of medications, the patient was re-assessed for adequacy to receive sedatives. The heart rate, respiratory rate, oxygen saturations, blood pressure, adequacy of pulmonary ventilation, and response to care were monitored throughout the procedure. The physical status of the patient was re-assessed after the procedure. After obtaining informed consent, the endoscope was passed under direct vision. Throughout the procedure, the patient's blood pressure, pulse, and oxygen saturations were monitored continuously. The Endoscope was introduced through the mouth, and advanced to the fourth part of the duodenum. Small bowel enteroscopy was deemed necessary. The upper GI endoscopy was accomplished without difficulty. The patient tolerated the procedure well. Scope In: 6:56:24 AM Scope Out: 7:00:50 AM Total Procedure Duration Time 0 hours 4 minutes 26 seconds Findings: No gross lesions were noted in the entire esophagus. Patchy mildly erythematous mucosa without bleeding was found in the gastric antrum. Biopsies were taken with a cold forceps for histology. Biopsies were taken with a cold forceps for Helicobacter pylori testing. Verification of patient identification for the specimen was done. Estimated blood loss was minimal. Patchy mildly erythematous mucosa without active bleeding and with no stigmata of bleeding was found in the duodenal bulb. Biopsies were taken with a cold forceps for histology. Verification of patient identification for the specimen was done. Estimated blood loss was minimal. Impression: - No gross lesions in the entire esophagus. - Erythematous mucosa in the antrum. Biopsied. - Erythematous duodenopathy. Biopsied. Recommendation: - Discharge patient to home. - Resume previous diet. - Continue present medications. - Await pathology results. Procedure Code(s): --- Professional --- 95067, Small intestinal endoscopy, enteroscopy beyond second portion of duodenum, not including ileum; with biopsy, single or multiple CPT copyright 2021 [employer]. All rights reserved. The codes documented in this report are preliminary and upon stitch bonding machine tender review may be revised to meet current compliance requirements. Felton Brown DO 08/15/2025 7:05:58 AM This report has been signed electronically. Number of Addenda: 0 Note Initiated On: 08/15/2025 6:19 AM
--- NOTE | 2025-08-15 07:07 | OP.PROVAT_ITS ---
08/15/2025 Zachary Toney [address] [place] [address] Re : Upper GI endoscopy procedure for Stefanie Wayne Dear Dr. Toney This procedure was performed on Friday, August 15, 2025. My impressions and recommendations are as follows: Impressions : - No gross lesions in the entire esophagus. - Erythematous mucosa in the antrum. Biopsied. - Erythematous duodenopathy. Biopsied. Recommendations : - Discharge patient to home. - Resume previous diet. - Continue present medications. - Await pathology results. My findings are described in the full procedure note, which is enclosed. If I can be of further assistance, please feel free to contact me at . Sincerely, Felton Brown, 08/15/2025 7:05:58 AM This report has been signed electronically.
--- NOTE | 2025-08-15 07:09 | PCM.POST.ANE ---
Anesthesia: Postop Eval I Current Vital Signs Temperature: 97.4 F Pulse Rate: 60 Blood Pressure: 85/52 Respiratory Rate: 16 Pulse Ox: 93 Oxygen Delivery Method: Room Air Assessment Airway patent: Yes Spontaneous unlabored respirations: Yes Mental status: Awake and Calm nausea: No Vomiting: No Anesthesia Complication: No Fluid Hydration Crystalloid volume administer (ml): 400 Total IV fluid infused: 400 Progress Note Anesthesia document: Postop Eval 1 completed: Yes
--- NOTE | 2025-08-15 21:48 | PCM.POSTANE2 ---
Anesthesia Postop Eval I Sum Postop Eval Completion status Anesthesia document: Postop Eval 1 completed: Yes Anesthesia Postop Eval I Summary Anesthesia Postop Eval I Summary: Anesthesia Postop Eval I: Assessment Summary Airway patent Yes 08/15/25 07:10 [email or web address] Spontaneous unlabored Yes 08/15/25 07:10 [email or web address] respirations Mental status Awake,Calm 08/15/25 07:10 [email or web address] nausea No 08/15/25 07:10 [email or web address] Vomiting No 08/15/25 07:10 [email or web address] Anesthesia Postop Eval I: Fluid Summary Crystalloid volume administer 400 08/15/25 07:10 [email or web address] (ml) Colloids volume administered ( ml) Blood Product volume administered (ml) Total IV fluid infused 400 08/15/25 07:10 [email or web address] Anesthesia Postop Eval I: Summary Notes Anesthesia Complication No 08/15/25 07:10 [email or web address] Anesthesia Complication Comment: Post-operative progress note Anesthesia: Postop Eval II Evaluation Mental status: Awake and Calm Pain Level: 0 nausea: No Vomiting: No Complications Anesthesia Complication: No
== END 2025-08-15 07:52 | disposition home or self-care (01) ==
LOC: EN 05:22 → AC 05:23
PROVIDERS: PCP Internal Medicine; Referring Provider Internal Medicine; Visit Provider Internal Medicine Gastroenterology
PROC: 0DJ08ZZ Inspection of Upper Intestinal Tract, Via Natural or Artificial Opening Endoscopic (ICD-10-PCS; CPT 43235; principal; 2025-08-15 06:25)
DX: E11.43 Type 2 diabetes mellitus with diabetic autonomic (poly)neuropathy (principal); I10 Essential (primary) hypertension; Z87.891 Personal history of nicotine dependence; E78.00 Pure hypercholesterolemia, unspecified; K21.9 Gastro-esophageal reflux disease without esophagitis; K31.84 Gastroparesis; Z79.899 Other long term (current) drug therapy; Z79.84 Long term (current) use of oral hypoglycemic drugs
CPT/HCPCS: 44361; 82962; 88305; 88342; J2405